=== PATIENT | male | born 1950 | race Caucasian/White ===

== ENCOUNTER → 2022-09-04 10:47 | Outpatient (BNVA) | payer MEDICARE, SELFPAY | PROVIDERS: PCP Internal Medicine; Referring Provider Internal Medicine; Visit Provider Nurse Practitioner Family | DX: Z12.11 Encounter for screening for malignant neoplasm of colon (principal) | CPT/HCPCS: 99202 ==

== ENCOUNTER → 2023-01-06 10:50 | Outpatient (BNVA) | payer MEDICARE, SELFPAY | PROVIDERS: Visit Provider Nurse Practitioner Family ==

== ENCOUNTER 2023-02-12 13:15 | Inpatient (IN) | payer MEDICARE, SELFPAY ==
--- NOTE | ~2023-02-12 | XR_ITS ---
EXAMINATION: XR CHEST CLINICAL INFORMATION: Shortness of breath COMPARISON: CT abdomen and pelvis 11/08/2006 and 05/30/2017 TECHNIQUE: Frontal view of the chest was obtained. FINDINGS: Heart size upper limits of normal. The left hemidiaphragm is mildly elevated and there are patchy changes at the left lung base. Some right basilar atelectasis is present as well. When comparison is made to the prior CT scan from 2018 as well as 2006 , similar changes can be seen at the left lung base. No large pleural effusions are seen. Mild blunting of the left costophrenic angle laterally was present ever since 2006 as well. XR/XR chest 1V IMPRESSION: No acute intrathoracic disease. Chronic scarring/atelectasis, left greater than right.
--- NOTE | 2023-02-12 13:18 | ECG_ITS ---
Test Reason : abn labs Blood Pressure : / mmHG Vent. Rate : 108 BPM Atrial Rate : 000 BPM P-R Int : 000 ms QRS Dur : 086 ms QT Int : 346 ms P-R-T Axes : 000 005 055 degrees QTc Int : 463 ms Atrial fibrillation with rapid ventricular response with premature ventricular or aberrantly conducted complexes Minimal voltage criteria for LVH, may be normal variant ( R in aVL ) Nonspecific T wave abnormality Abnormal ECG When compared with ECG of 12-FEB-2023 13:23, T wave amplitude has decreased in Lateral leads Referred By: Jayme Nolan Electronically Signed By:NADJA YBARRA MD
--- NOTE | 2023-02-12 13:19 | ECG_ITS ---
Test Reason : abnormal labs Blood Pressure : / mmHG Vent. Rate : 108 BPM Atrial Rate : 000 BPM P-R Int : 000 ms QRS Dur : 082 ms QT Int : 322 ms P-R-T Axes : 000 020 049 degrees QTc Int : 431 ms Atrial fibrillation with rapid ventricular response with premature ventricular or aberrantly conducted complexes Nonspecific ST abnormality Abnormal ECG No previous ECGs available Referred By: Jayme Nolan Electronically Signed By:NADJA YBARRA MD
--- NOTE | 2023-02-12 13:21 | ED_ITS ---
HPI - General Adult General Chief complaint: Recheck/Abnormal Lab/Rx Stated complaint: Needs Magnesium Injection Time Seen by Provider: 02/12/23 13:53 Source: patient Mode of arrival: ambulatory Limitations: no limitations History of Present Illness HPI narrative: patient present for very low magnesium, in addition he has poorly controlled afib and worsening edema Onset (ago): week(s) Severity: moderate Related Data Home Medications Medication Instructions Recorded Confirmed atorvastatin 40 mg tablet 40 mg PO BEDTIME 09/03/22 02/12/23 lisinopril 40 mg tablet 40 mg PO DAILY@1200 09/03/22 02/12/23 metformin 1,000 mg tablet 1,000 mg PO BID@1200,2100 09/03/22 02/12/23 dulaglutide 1.5 mg/0.5 mL 1.5 mg subcut TH 09/04/22 02/12/23 subcutaneous pen injector (Trulicity) folic acid 1 mg tablet 1 mg PO DAILY@1200 09/04/22 02/12/23 insulin lispro 100 unit/mL See Rx Instructions .Route .COMPLEX 09/04/22 02/12/23 subcutaneous solution (Humalog U-100 Insulin) warfarin 5 mg tablet 2.5 mg PO MOWEFRSA@1800 09/04/22 02/12/23 clopidogrel 75 mg tablet 75 mg PO DAILY 01/06/23 02/12/23 flash glucose scanning reader #1 ea 01/06/23 (FreeStyle Pat 2 [place]) flash glucose sensor (FreeStyle #1 ea 01/06/23 Pat 2 Sensor kit) ammonium lactate 12 % topical cream 1 appl topical DAILY PRN Wound Care 02/12/23 02/12/23 silver sulfadiazine 1 % topical 1 appl topical DAILY PRN Wound Care 02/12/23 02/12/23 cream sub-q insulin device, 20 unit 02/12/23 02/12/23 (V-GO 20 device) warfarin 5 mg tablet 5 mg PO SUTUTH@1800 02/12/23 02/12/23 Previous Rx's Medication Instructions Recorded digoxin 250 mcg (0.25 mg) tablet 250 mcg PO DAILY #30 tabs 02/15/23 furosemide 20 mg tablet 20 mg PO DAILY #30 tabs 02/15/23 magnesium oxide 400 mg (241.3 mg 400 mg PO BIDPC #60 tabs 02/15/23 magnesium) tablet metoprolol tartrate 75 mg tablet 75 mg PO BID #60 tabs 02/15/23 Allergies Allergy/AdvReac Type Severity Reaction Status Date / Time peanut [PEANUTS] Allergy Unknown UNK Verified 02/12/23 13:39 wool [WOOL] Allergy Unknown UNK Verified 02/12/23 13:39 peanuts Allergy Unknown hives Uncoded 02/12/23 13:39 Review of Systems 2 Review of Systems: Yes all other systems are reviewed and are negative Neurologic: Denies Sensory deficit (Neuro) [facility] Family History Family History Father Kidney cancer, primary, with metastasis from kidney to other site Heart disease Social History Social History Household Members: Significant Other Housing: House Alcohol intake: never Patient Tobacco Use Status: Never used Tobacco Second Hand Smoke Exposure: No Advance Directives Date on File: 02/13/23 service: No Physical Exam ED Vital Signs: Vital Signs - 24 hr 02/12/23 13:35 02/12/23 14:46 02/12/23 16:47 Temperature 98 F 98.5 F Pulse Rate 130 H 115 H 97 Respiratory Rate 16 20 24 H Blood Pressure 147/79 H 152/80 H 148/88 H Pulse Oximetry 93 95 94 Oxygen Delivery Method Room Air Room Air Room Air BMI result Body Mass Index 35.1 Const Other: chronically ill male, short of breath Nutritional Appearance: average body habitus and obese Orientation/consciousness: oriented to person and patient oriented x3 Limitations: no limitations [facility] Head: Yes normal to inspection Ears: external ears normal General nose exam: Normal external nose present Mouth: Normal oral and palatal mucosa present and oropharynx normal Throat: Yes posterior oropharynx normal Eyes General: appearance normal, both eyes and all related structures Neck Neck: Yes normal visual inspection Chest Chest palpation & inspection: normal inspection of the chest Resp Other: diffuse fine crackles Cardio Other: tachycardia, irregular rate and rhythm GI Inspection: Yes normal to inspection Palpation (GI): Soft to palpation, nontender and No hepatosplenomegaly present Auscultation: normal bowel sounds General: Yes no CVA tenderness Back/Spine/Pelvis Back: no CVA tenderness Skin General skin exam: no rashes or lesions noted Neuro General: oriented to person and patient oriented x3 Cranial nerves: Yes CN's II-XII intact bilaterally Motor exam (neuro): 5/5 motor strength present throughout Sensory Exam: No Sensory deficit (Neuro) Extrem Other: bilateral anasarca with blebs and leaking lymphedma Psych Appearance: grossly normal Course Course Course Narrative: RME: 72 yold male brought to the ED for magnesium of 1. patient asymptomatic, but sent by his PCP. labs and EKG ordered. Charge nurse Judy made aware and patient will be brought in. Reevaluation(s) Reevaluation #1: patient needed rate control with IV cardizem, he has worsening edema and his magnesium is critically low will admit for afib, diuresis and critically low magnesium Time: 17:03 Reevaluation #2: I spent 40 minutes of critical care, with interventions, assessments, speaking to patient, consultants, and family. Time: 17:03 Medications Administered Discontinued Medications Generic Name Dose Route Start Last Admin Trade Name Freq PRN Reason Stop Dose Admin Acetaminophen 650 mg 02/12/23 21:12 02/15/23 02:04 Acetaminophen 325 Mg Tablet PO 650 mg Q6H PRN Administration Pain, Mild (Pain Scale 1-3) Atorvastatin Calcium 40 mg 02/13/23 21:00 02/14/23 20:46 Atorvastatin Calcium 40 Mg Tablet PO 40 mg BEDTIME JOY Administration Clopidogrel Bisulfate 75 mg 02/13/23 09:00 02/15/23 08:17 Clopidogrel Bisulfate 75 Mg Tablet PO 75 mg DAILY JOY Administration Digoxin 0.5 mg 02/13/23 10:19 02/13/23 10:33 Digoxin 0.5 Mg/2 Ml Ampul IVPUSH 02/13/23 10:20 0.5 mg ONCE ONE Administration Digoxin 0.25 mg 02/13/23 16:30 02/13/23 21:14 Digoxin 0.5 Mg/2 Ml Ampul IVPUSH 02/13/23 22:31 0.25 mg Q6H JOY Administration Diltiazem HCl 10 mg 02/12/23 14:29 02/12/23 15:00 Diltiazem Hcl 50 Mg/10 Ml Vial IVPUSH 02/12/23 14:30 10 mg STAT STA Administration Folic Acid 1 mg 02/13/23 12:00 02/14/23 12:09 Folic Acid 1 Mg Tablet PO 1 mg DAILY@1200 JOY Administration Furosemide 40 mg 02/12/23 20:49 02/12/23 21:52 Furosemide 40 Mg/4 Ml Vial IVPUSH 02/12/23 20:50 40 mg ONCE ONE Administration Protocol Furosemide 40 mg 02/13/23 09:00 02/15/23 08:17 Furosemide 40 Mg/4 Ml Vial IVPUSH 40 mg DAILY [facility] Administration Protocol Magnesium Sulfate 2 gm in 50 mls @ 25 mls/hr 02/12/23 14:28 02/12/23 17:51 Magnesium Sulfate/H2o IV 02/12/23 16:27 Infused ONCE ONE Infusion Diltiazem HCl 125 mg/ Sodium 125 mls @ 0 mls/hr 02/12/23 14:30 02/15/23 08:02 Chloride IVCONT Infused .Q0M [facility] Titration Protocol Per Protocol Magnesium Sulfate 2 gm in 50 mls @ 150 mls/hr 02/12/23 20:12 02/12/23 22:20 Magnesium Sulfate/H2o IV 02/12/23 20:31 Infused ONCE ONE Infusion Insulin Pump 1 each 02/13/23 07:30 02/15/23 08:06 Subcutaneous Insulin Pump SUBCUT Not Given QIDACHS [facility] Protocol Lisinopril 40 mg 02/13/23 12:00 02/14/23 12:09 Lisinopril 40 Mg Tablet PO 40 mg DAILY@1200 [facility] Administration Protocol Magnesium Oxide 400 mg 02/13/23 17:30 02/15/23 08:17 Magnesium Oxide 400 Mg Tablet PO 400 mg BIDPC [facility] Administration Metoprolol Tartrate 25 mg 02/13/23 13:00 02/15/23 08:17 Metoprolol Tartrate 25 Mg Tablet PO 25 mg QID [facility] Administration Protocol Polyethylene Glycol 17 gm 02/15/23 02:15 02/15/23 02:37 Polyethylene Glycol 3350 17 Gm Powd.Pack PO 02/15/23 02:16 17 gm ONCE ONE Administration Sodium Chloride 3 ml 02/13/23 00:00 02/15/23 08:17 0.9 % Sodium Chloride Flush 3 Ml Syringe IVFLUSH 3 ml QSHIFT [facility] Administration Warfarin Sodium 2.5 mg 02/12/23 22:00 02/14/23 17:50 Warfarin Sodium 2.5 Mg Tablet PO 2.5 mg MOWEFRSA@1800 [facility] Administration Warfarin Sodium 5 mg 02/13/23 18:00 02/13/23 17:30 Warfarin Sodium 5 Mg Tablet PO 5 mg GARCÍA@1800 JOY Administration Medical Decision Making Differential Diagnosis Differential Diagnoses: The differential diagnosis associated with the presentation includes (hypomagnesemia, poor controlled atrial fibrillation, anasarca, chf were all considered) Admission/Observation Consideration of admission/observation: Escalation of care including admission/observation considered (upon arrival patient considered for admission) Consult Healthcare Provider Management of the patient was discussed with: Hospitalist Lab Data 02/15/23 06:46 02/15/23 06:46 Labs: Lab Results 02/12/23 02/12/23 02/12/23 Range/Units 13:46 15:05 17:30 WBC 5.6 (4.8-10.8) X10*3/uL RBC 5.35 (4.60-5.80) X10*6/uL Hgb 11.9 L (14.0-18.0) g/dl Hct 40.4 L (42.0-52.0) % MCV 75.5 L (80.0-98.0) fL MCH 22.2 L (27.0-33.0) pg MCHC 29.5 L (31.0-36.0) g/dl RDW 17.7 H (11.0-16.0) % Plt Count 265 (160-400) X10*3/uL MPV 8.7 L (9.4-12.4) fL Immature Gran % (Auto) 0.4 (0.0-0.4) % Neut % (Auto) 66.7 (45-73) % Lymph % (Auto) 14.6 L (20-40) % [place] % (Auto) 13.6 H (2-11) % Eos % (Auto) 4.3 H (0-4) % Baso % (Auto) 0.4 (0-2) % Lymph # (Auto) 0.8 L (1.2-4.9) X10*3/uL [place] # (Auto) 0.8 (0.1-1.2) X10*3/uL Eos # (Auto) 0.2 (0.0-0.4) X10*3/uL Baso # (Auto) 0.0 (0.0-0.2) X10*3/uL Abs Immat Gran (auto) 0.02 (0.00-0.03) X10*3/uL Absolute Neuts (auto) 3.7 (2.0-8.3) x10*3/uL Absolute Nucleated RBC 0.000 (0.0-0.012) X10*3/uL Nucleated RBC % (auto) 0.0 (0.0-0.2) /100WBC PT 32.7 H (11.1-13.3) SEC INR 2.7 H (0.9-1.1) Sodium 145 (135-145) mmol/L Potassium 3.9 (3.3-5.1) mmol/L Chloride 109 H (96-108) mmol/L Carbon Dioxide 26 (22-29) mmol/L Anion Gap 14 (12-20) BUN 12 (9-16) mg/dL Creatinine 0.81 (0.5-1.4) mg/dL Estim Creat Clear Calc 125.2 Estimated GFR > 60 Random Glucose 112 (60-115) mg/dL Calcium 8.4 (8.4-10.2) mg/dL Magnesium 0.8 L* 1.2 L* (1.6-2.6) mg/dL Iron 21 L (45-160) mcg/dL TIBC 244 (228-428) mcg/dL % Saturation 9 L (15-50) % Unsat Iron Binding 223 ug/dL Ferritin 62 (20-250) ng/mL Total Bilirubin 1.0 (0.0-1.0) mg/dL AST 18 (5-37) U/L ALT 10 (0-40) U/L Alkaline Phosphatase 85 (39-117) U/L Troponin I High Sens < 2.7 (<3.5-35.0) ng/L B-Natriuretic Peptide 206 H (<100) pg/mL Total Protein 7.3 (6.5-8.0) g/dL Albumin 3.3 L (3.5-5.0) g/dL Independent Interpretation I performed an independent interpretation of an: EKG (atrial fibrillation rate of 120, no st or twave changes) and Plain X-Ray (chronic lung changes) Radiology Impression Discussion of test interpretation with radiology: I have reviewed the radiologist's reading. (I agree with the reading) Independent Historian Clinical information obtained from an independent historian. History obtained from or confirmed by: Spouse Chronic Conditions Patient?s care impacted by: Other (CHF and atrial fibrillation) Discharge Plan Discharge Clinical Impression: Atrial fibrillation, Anasarca, Hypomagnesemia Patient Disposition: Admitted As Inpatient Discharge Date/Time: 02/13/23 14:15
[2023-02-12 13:35] VITALS: BP 147/79; PULSE 130; RESP 16; TEMP 36.6; O2SAT 93; BMI 35.1
[2023-02-12 13:50] LABS: MANUAL DIFF FLAG NO
[2023-02-12 13:55] LABS: Basophils Percent Auto 0.4 % (0-2); Eosinophils Absolute Auto 0.2 X10*3/uL (0.0-0.4); Eosinophils Percent Auto 4.3 % (0-4); Hematocrit 40.4 % (42.0-52.0); Hemoglobin 11.9 g/dl (14.0-18.0); Imm Gran Abs Auto 0.02 X10*3/uL (0.00-0.03); Imm Gran Pct Auto 0.4 % (0.0-0.4); Lymphocytes Absolute Auto 0.8 X10*3/uL (1.2-4.9); Lymphocytes Percent Auto 14.6 % (20-40); Mean Corpuscular HGB Conc 29.5 g/dl (31.0-36.0); Mean Corpuscular Hemoglobin 22.2 pg (27.0-33.0); Mean Corpuscular Volume 75.5 fL (80.0-98.0); Mean Platelet Volume 8.7 fL (9.4-12.4); Monocytes Absolute Auto 0.8 X10*3/uL (0.1-1.2); Monocytes Percent Auto 13.6 % (2-11); Neutrophils Absolute Auto 3.7 x10*3/uL (2.0-8.3); Neutrophils Percent Auto 66.7 % (45-73); Platelet Count 265 X10*3/uL (160-400); Red Blood Count 5.35 X10*6/uL (4.60-5.80); Red Cell Distribution Width 17.7 % (11.0-16.0); White Blood Count 5.6 X10*3/uL (4.8-10.8)
[2023-02-12 14:11] LABS: Alanine Aminotransferase 10 U/L (0-40); Albumin Level 3.3 g/dL (3.5-5.0); Alkaline Phosphatase 85 U/L (39-117); Anion Gap 14 (12-20); Aspartate Amino Transferase 18 U/L (5-37); Blood Urea Nitrogen 12 mg/dL (9-16); Calcium 8.4 mg/dL (8.4-10.2); Carbon Dioxide 26 mmol/L (22-29); Chloride 109 mmol/L (96-108); Creatinine Clr Calc Pharmacy 125.2; Estimated Glomerular Filt Rate > 60; Glucose Random 112 mg/dL (60-115); Magnesium 0.8 mg/dL (1.6-2.6); Potassium 3.9 mmol/L (3.3-5.1); Sodium 145 mmol/L (135-145); Total Protein 7.3 g/dL (6.5-8.0)
[2023-02-12 14:46] VITALS: BP 152/80; PULSE 115; RESP 20; O2SAT 95
[2023-02-12] MEDS: dilTIAZem HCL 50 MG/10 ML VIAL 10 MG IVPUSH (15:00)
[2023-02-12] MEDS: Magnesium Sulfate/H2O 2 GM/50 ML PIGGYBACK IV ×2 (15:06→21:52)
[2023-02-12] MEDS: dilTIAZem HCL 125 MG in 0.9 % Sodium Chloride 100 ML 10 MG IVCONT (15:15)
[2023-02-12 15:30] LABS: Troponin-I High Sensitivity < 2.7 ng/L (<3.5-35.0)
[2023-02-12 15:43] LABS: B Type Natriuretic Peptide 206 pg/mL (<100)
[2023-02-12 16:47] VITALS: BP 148/88; PULSE 97; RESP 24; TEMP 36.9; O2SAT 94
--- NOTE | 2023-02-12 17:06 | PC.NURSE ---
CARDIZEM GTT TITRATED TO 15ML/HR, PT TOLERATING WELL, REMAINS IN AFIB BETWEEN 90S-110S, BP WNL, PT ASYMPTOMATIC.
[2023-02-12 17:43] LABS: INTERNATIONAL NORM RATIO 2.7 (0.9-1.1); Prothrombin Time 32.7 SEC (11.1-13.3)
--- NOTE | 2023-02-12 17:49 | PHA.MEDREC ---
Pharmacy Consult ? Medication Reconciliation Pharmacy has completed the medication reconciliation. Patient reported all medications. Luz Olivarez, [email or web address]
[2023-02-12 17:53] LABS: Magnesium 1.2 mg/dL (1.6-2.6)
[2023-02-12 18:43] VITALS: BP 130/68; PULSE 86; RESP 16; O2SAT 94
[2023-02-12 21:15] VITALS: BP 144/73; PULSE 80; RESP 27; TEMP 36.4; O2SAT 92
--- NOTE | 2023-02-12 21:38 | P.HPHOSP_ITS ---
History of Present Illness Date of Service: 02/12/23 <ERASMO Centeno - Last Filed: 02/12/23 21:58> Attending physician on admission: Fredi Welch <ERASMO Centeno - Last Filed: 02/12/23 21:58> Chief Complaint: low mag, edema <ERASMO Centeno - Last Filed: 02/12/23 21:58> 72-year-old male with well-controlled insulin-dependent type 2 diabetes, GERD, coronary artery disease s/p PCI with SELENE in 11/2022, paroxysmal atrial fibrillation, history of bilateral lower extremity DVT anticoagulated with Coumadin, chronic venous stasis dermatitis with bilateral lower extremity edema presented to the ED earlier today at the recommendation of 1 of his providers due to hypo magnesiumemia and worsening lower extremity edema. Per the patient 1 week ago had a magnesium level of 0.9 and was prescribed 400 mg magnesium oxide twice daily which he took as prescribed but magnesium only improved to 1.0 and he was advised to present to the ED. he also states that since his coronary stent 2 months ago, has had worsening bilateral lower extremity edema with blisters and venous ulcer to the right ankle. He does follow with podiatry and wound care for this. He has also had dyspnea on exertion and orthopnea but states this is longstanding. Reports occasional nocturnal palpitations. No lightheadedness or chest pains. Denies any purulent drainage from the chronic wound of the right ankle. No fevers or chills. He is here today with his significant other, Mary Alice, who assists with his care and wound management. On arrival, patient tachycardic to 130 and tachypneic to 24. No hypotension or hypoxia. There is minimal improvement in heart rate with 10 mg IV diltiazem and patient was placed on Cardizem drip with improvement in heart rate. Hematology studies significant for mild microcytic anemia. INR therapeutic at 2.7. Renal function and electrolyte levels normal except for magnesium of 0.8 on arrival. He received 2 g IV magnesium in the ED with slight improvement to 1.2. Additional 2 g IV magnesium ordered. Troponin undetectable. BNP 206. Albumin 3.3. Chest x-ray negative for any acute disease but shows chronic scarring/atelectasis. No pleural effusions or edema noted. EKG on arrival showed AFib with RVR and PVCs, rate [address]/T-wave abnormality. <ERASMO Centeno - Last Filed: 02/12/23 21:58> Review of Systems 2 Review of Systems: General: No fevers, malaise, unintentional weight loss Cardiovascular: No chest pain. +palpitations + leg edema Respiratory: +pop, +cough. No wheezing GI: No abdominal pain, nausea, vomiting, diarrhea, constipation, melena, hematochezia : No dysuria, hematuria, increased urinary frequency, decreased urinary output MSK: No myalgia, back pain Neuro: No headaches, weakness, paresthesias Skin: No rashes or lesions <ERASOM Centeno Last Filed: 02/12/23 21:58> [facility] Family History: Family History Father Kidney cancer, primary, with metastasis from kidney to other site Heart disease <ERASMO Centeno - Last Filed: 02/12/23 21:58> Social History: Social History Alcohol intake: never Patient Tobacco Use Status: Never used Tobacco Smoked in Last 30 Days: No Use of substances other than those prescribed or required for medical reasons: No Advance Directives: No Advance Directives Information Provided: Yes <ERASMO Centeno - Last Filed: 02/12/23 21:58> Meds Allergies/Adverse reactions: Allergies Allergy/AdvReac Type Severity Reaction Status Date / Time peanut [PEANUTS] Allergy Unknown UNK Verified 02/12/23 13:39 wool [WOOL] Allergy Unknown UNK Verified 02/12/23 13:39 peanuts Allergy Unknown hives Uncoded 02/12/23 13:39 <ERASMO Centeno - Last Filed: 02/12/23 21:58> Active Medications: Current Medications Acetaminophen (Acetaminophen 325 Mg Tablet) 650 mg PO Q6H PRN PRN Reason: Pain, Mild (Pain Scale 1-3) Diltiazem HCl 125 mg/ Sodium (Chloride) 125 mls @ 0 mls/hr IVCONT .Q0M JOY; Protocol Last Titration: 02/12/23 16:50 Dose: 15 mg/hr, 15 mls/hr Melatonin (Melatonin 3 Mg Tablet) 6 mg PO BEDTIME PRN PRN Reason: Insomnia Ondansetron HCl (Ondansetron Hcl 4 Mg/2 Ml Vial) 4 mg IVPUSH Q8H PRN PRN Reason: Nausea and Vomiting Sodium Chloride (0.9 % Sodium Chloride Flush 3 Ml Syringe) 3 ml IVFLUSH QSHIFT [facility] <ERASMO Centeno - Last Filed: 02/12/23 21:58> Home medications: Home Medications Medication Instructions Recorded Confirmed Last Taken Type atorvastatin 40 mg tablet 40 mg PO BEDTIME 09/03/22 02/12/23 02/12/23 History lisinopril 40 mg tablet 40 mg PO DAILY@1200 09/03/22 02/12/23 02/12/23 History metformin 1,000 mg tablet 1,000 mg PO BID@1200,2100 09/03/22 02/12/23 02/12/23 History metoprolol succinate 50 mg capsule 50 mg PO DAILY@1200 09/03/22 02/12/23 02/12/23 History sprinkle, ext. release 24 hr omeprazole 20 mg capsule,delayed 20 mg PO DAILY 09/03/22 02/12/23 02/12/23 History release dulaglutide 1.5 mg/0.5 mL 1.5 mg subcut TH 09/04/22 02/12/23 02/12/23 History subcutaneous pen injector (Trulicity) folic acid 1 mg tablet 1 mg PO DAILY@1200 09/04/22 02/12/23 02/12/23 History insulin lispro 100 unit/mL See Rx Instructions .Route .COMPLEX 09/04/22 02/12/23 02/12/23 History subcutaneous solution (Humalog U-100 Insulin) warfarin 5 mg tablet 2.5 mg PO MOWEFRSA@1800 09/04/22 02/12/23 02/10/23 History clopidogrel 75 mg tablet 75 mg PO DAILY 01/06/23 02/12/23 02/12/23 History flash glucose scanning reader #1 ea 01/06/23 Unknown History (FreeStyle Pat 2 [place]) flash glucose sensor (FreeStyle #1 ea 01/06/23 Unknown History Pat 2 Sensor kit) ammonium lactate 12 % topical cream 1 appl topical DAILY PRN Wound Care 02/12/23 02/12/23 Unknown History metoprolol succinate 25 mg 25 mg PO DAILY@1200 02/12/23 02/12/23 02/12/23 History tablet,extended release 24 hr silver sulfadiazine 1 % topical 1 appl topical DAILY PRN Wound Care 02/12/23 02/12/23 Unknown History cream sub-q insulin device, 20 unit 02/12/23 02/12/23 Unknown History (V-GO 20 device) warfarin 5 mg tablet 5 mg PO SUTUTH@1800 02/12/23 02/12/23 02/11/23 History <ERASMO Centeno - Last Filed: 02/12/23 21:58> Physical Exam 2 Vital Signs and Narrative: Vital Signs: Last Vital Signs Temp 97.5 F 02/12/23 21:15 Pulse 80 02/12/23 21:15 Resp 27 H 02/12/23 21:15 BP 144/73 H 02/12/23 21:15 Pulse Ox 92 02/12/23 21:15 O2 Del Method Room Air 02/12/23 21:15 BMI result Body Mass Index 35.1 <ERASMO Centeno - Last Filed: 02/12/23 21:58> Constitutional - Awake and Alert, No apparent distress Eyes - PERRLA, EOMI Cardiovascular - S1S2, RRR, 2+ edema BLE Respiratory - Normal lung expansion, Normal respiratory effort, No respiratory distress, CTA bilaterally Gastrointestinal - NT / ND; +BS; No rebound or guarding Extremities - no calf tenderness bilaterally, +swelling BLE with scattered vesicles covering the lower legs with shallow superfical ulceration about 10cm x 6cm anterior right ankle Skin - Warm/Dry. Neurological - Alert & oriented x3 Psychological - Appropriate affect <ERASMO Centeno - Last Filed: 02/12/23 21:58> Results Labs CBC and Chem 7: 02/12/23 13:46 02/12/23 13:46 <ERASMO Centeno - Last Filed: 02/12/23 21:58> Labs: Laboratory Results - last 24 hr 02/12/23 02/12/23 02/12/23 13:46 15:05 17:30 MCV 75.5 L MCH 22.2 L MCHC 29.5 L RDW 17.7 H Plt Count 265 MPV 8.7 L Immature Gran % (Auto) 0.4 Neut % (Auto) 66.7 Lymph % (Auto) 14.6 L [place] % (Auto) 13.6 H Eos % (Auto) 4.3 H Baso % (Auto) 0.4 Lymph # (Auto) 0.8 L [place] # (Auto) 0.8 Eos # (Auto) 0.2 Baso # (Auto) 0.0 Abs Immat Gran (auto) 0.02 Absolute Neuts (auto) 3.7 Absolute Nucleated RBC 0.000 Nucleated RBC % (auto) 0.0 PT 32.7 H INR 2.7 H Anion Gap 14 Estim Creat Clear Calc 125.2 Estimated GFR > 60 Random Glucose 112 Calcium 8.4 Magnesium 0.8 L* 1.2 L* Total Bilirubin 1.0 AST 18 ALT 10 Alkaline Phosphatase 85 B-Natriuretic Peptide 206 H Total Protein 7.3 Albumin 3.3 L <ERASMO Centeno - Last Filed: 02/12/23 21:58> Imaging Radiologist's Impressions: Impressions Chest X-Ray 02/12/23 16:10 IMPRESSION: No acute intrathoracic disease. Chronic scarring/atelectasis, left greater than right. <ERASMO Centeno - Last Filed: 02/12/23 21:58> Assessment and Plan (1) Hypomagnesemia: Status: Acute <ERASMO Centeno - Last Filed: 02/12/23 21:58> (2) Atrial fibrillation: Status: Acute <ERASMO Centeno - Last Filed: 02/12/23 21:58> (3) Edema: Status: Acute <ERASMO Centeno - Last Filed: 02/12/23 21:58> 72-year-old male with well-controlled insulin-dependent type 2 diabetes, GERD, coronary artery disease s/p PCI with SELENE in 11/2022, paroxysmal atrial fibrillation, history of bilateral lower extremity DVT anticoagulated with Coumadin, chronic venous stasis dermatitis with bilateral lower extremity edema admitted for further management of atrial fibrillation with RVR. # paroxysmal atrial fibrillation -continue Cardizem per protocol -continue metoprolol XL 75 mg daily -continue Coumadin for anticoagulation. INR therapeutic at 2.7. Monitor INR daily -cardiac diet -echocardiogram ordered -cardiology consult -monitor on telemetry #Acute hypomagnesemia -denies etoh use -repleted with 4 g IV magnesium in the ED -hold omeprazole, Trulicity, metformin -follow magnesium #BLE edema -likely multifactorial r/t chronic venous stasis, ?CHF -does endorse chronic pop and orthopnea -BNP slightly elevated at 202, CXR negative for edema/effusions -IV lasix 40mg daily -echo pending -strict I&O -cardiac diet -follow BMP # insulin controlled type 2 diabetes -reports controlled with last A1c 6.5% -uses own insulin pump which we will continue -POC glucose -diabetic diet -hold oral antihyperglycemics # CAD -no added on chest pain, EKG without acute ischemic changes -and undetectable -continue Plavix,, beta-ela # superficial venous ulcer right ankle -does not appear acutely infected -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 # severe obesity with BMI greater than 35 -weight loss efforts encouraged DVT prophylaxis-Coumadin Full code Patient requires inpatient stay at least 2 midnights for management of atrial fibrillation with RVR on Cardizem drip requiring titration and severe hypomagnesemia requiring IV repletion and close cardiac monitoring <ERASMO Centeno - Last Filed: 02/12/23 21:58> 72-year-old male with well-controlled insulin-dependent type 2 diabetes, GERD, coronary artery disease s/p PCI with SELENE in 11/2022, paroxysmal atrial fibrillation, history of bilateral lower extremity DVT anticoagulated with Coumadin, chronic venous stasis dermatitis with bilateral lower extremity edema admitted for further management of atrial fibrillation with RVR. # paroxysmal atrial fibrillation with RVR -continue Cardizem per protocol -continue metoprolol XL 75 mg daily -continue Coumadin for anticoagulation. INR therapeutic at 2.7. Monitor INR daily -cardiac diet -echocardiogram ordered -cardiology consult -monitor on telemetry #Acute hypomagnesemia -denies etoh use -repleted with 4 g IV magnesium in the ED -hold omeprazole, Trulicity, metformin -follow magnesium #BLE edema -likely multifactorial r/t chronic venous stasis, ?CHF -does endorse chronic pop and orthopnea -BNP slightly elevated at 202, CXR negative for edema/effusions -IV lasix 40mg daily -echo pending -strict I&O -cardiac diet -follow BMP # insulin controlled type 2 diabetes -reports controlled with last A1c 6.5% -uses own insulin pump which we will continue -POC glucose -diabetic diet -hold oral antihyperglycemics # CAD -no added on chest pain, EKG without acute ischemic changes -and undetectable -continue Plavix,, beta-ela # superficial venous ulcer right ankle -does not appear acutely infected -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 <ERASMO Centeno - Last Filed: 02/12/23 21:58> Quality Stroke Does the patient have a stroke diagnosis?: No <ERASMO Centeno - Last Filed: 02/12/23 21:58> VTE Prior VTE?: Yes <ERASMO Centeon - Last Filed: 02/12/23 21:58> VTE Risk Level:: Medical - moderate - high <ERASMO Centeno - Last Filed: 02/12/23 21:58> VTE Device Contraindication: Treatment Not Indicated <ERASMO Centeno - Last Filed: 02/12/23 21:58> VTE Drug Contraindication: N/A - Med Ordered <ERASMO Centeno - Last Filed: 02/12/23 21:58>
[2023-02-12] MEDS: Furosemide 40 MG/4 ML VIAL IVPUSH (21:52)
--- NOTE | 2023-02-12 22:49 | PC.NURSE ---
Pt alert and oriented. VSS stable, Cardizem drip currently infusing. Medications administered as per JUN. [place] cath placed on pt. Wound care provided to right gross. and left calf. right gross draining purulent fluids. ABD dressing applied and grabbed in gauze. Call rojas within reach. PLan of care ongoing
[2023-02-12 23:25] LABS: Iron 21 mcg/dL (45-160); Percent Iron Saturation 9 % (15-50); Total Iron Binding Capacity 244 mcg/dL (228-428); Unsaturated Iron Binding 223 ug/dL
[2023-02-12 23:26] LABS: Ferritin 62 ng/mL (20-250)
[2023-02-13] VITALS (9 sets, daily range): BP systolic 112–159; BP diastolic 64–92; PULSE 70–129; RESP 16–24; TEMP 36.2–36.9; O2SAT 91–96
[2023-02-13] MEDS: Warfarin Sodium 2.5 MG TABLET PO (00:03)
--- NOTE | 2023-02-13 00:09 | PC.NURSE ---
PT alert and oriented. Cardizem drip infused. PT heart rate stable in the 70-80s. Hospital bed obtained for comfort. PT denies pain at this time. Call rojas within reach. Plan of care ongoing.
--- NOTE | 2023-02-13 00:32 | MHC.EDTECH ---
PT resting in bed Respirations even and unlabored Plan of care is ongoing
[2023-02-13 05:46] LABS: Hematocrit 42.2 % (42.0-52.0); Hemoglobin 12.3 g/dl (14.0-18.0); Mean Corpuscular HGB Conc 29.1 g/dl (31.0-36.0); Mean Corpuscular Volume 75.4 fL (80.0-98.0); Mean Platelet Volume 8.7 fL (9.4-12.4); Platelet Count 241 X10*3/uL (160-400); Red Cell Distribution Width 17.7 % (11.0-16.0); White Blood Count 5.9 X10*3/uL (4.8-10.8)
[2023-02-13 05:56] LABS: INTERNATIONAL NORM RATIO 2.4 (0.9-1.1)
[2023-02-13 06:09] LABS: Anion Gap 17 (12-20); Blood Urea Nitrogen 12 mg/dL (9-16); Carbon Dioxide 25 mmol/L (22-29); Chloride 106 mmol/L (96-108); Estimated Glomerular Filt Rate > 60; Glucose Random 120 mg/dL (60-115); Magnesium 1.7 mg/dL (1.6-2.6); Potassium 4.8 mmol/L (3.3-5.1); Sodium 143 mmol/L (135-145)
--- NOTE | 2023-02-13 06:22 | PC.NURSE ---
[place] cath replaced, linens changed. PT heart rate now irregular 70-124. MD aware. no new orders at this time. Plan of care ongoing. Call rojas within reach.
[2023-02-13 07:35] LABS: Glucose, Whole Blood 117 mg/dL (60-115)
--- NOTE | 2023-02-13 07:49 | PC.NURSE ---
patient manages his own insulin pump, states he did not dose himself with any insulin this morning due to glucose being 117. documented in MAR
[2023-02-13] MEDS: Furosemide 40 MG/4 ML VIAL IVPUSH (08:17)
[2023-02-13] MEDS: Clopidogrel Bisulfate 75 MG TABLET PO (08:18)
[2023-02-13] MEDS: Acetaminophen 325 MG TABLET 650 MG PO (08:18)
[2023-02-13] MEDS: dilTIAZem HCL 125 MG in 0.9 % Sodium Chloride 100 ML 10 MG IVCONT ×2 (08:23→15:12)
[2023-02-13] MEDS: 0.9 % Sodium Chloride Flush 3 ML SYRINGE IVFLUSH ×3 (08:32→23:57)
--- NOTE | 2023-02-13 08:34 | PC.NURSE ---
patient noted to be in afib rate 120s-140s, patient started back on dilt drip per JUN. patient urine bag emptied 400ml drained
--- NOTE | 2023-02-13 08:44 | PC.NURSE ---
patient dilt drip titrated to 15mg/hr due to hr 130s-140s. documented in MAR
--- NOTE | 2023-02-13 10:20 | PC.NURSE ---
patient dilt drip paused due to patient rates being 110s and lower. medicated per MAR
[2023-02-13] MEDS: Digoxin 0.5 MG/2 ML AMPUL IVPUSH (10:33)
--- NOTE | 2023-02-13 11:08 | PM.CNCAR ---
History of Present Illness History of Present Illness Date of Service: 02/13/23 Requesting physician: Jay Napoles Consult reason: atrial fibrillation and congestive heart failure Chief complaint: AFib with RVR Narrative: I was consulted to see Randy in cardiology consultation today for management of his atrial fibrillation. Patient is a pleasant 72-year-old male with recent stenting in November of the diagonal branch of the LAD for abnormal nuclear imaging, with no obvious symptoms of angina with mild LV systolic dysfunction. However it appeared like his cardiomyopathy is out of proportion to his coronary artery disease. Patient is currently on Plavix as well as warfarin therapy for chronic atrial fibrillation. He tells me that he has been told that he had atrial fibrillation for about 7 years. It appears that he has been in persistent atrial fibrillation. He also has prior history of bilateral DVT and has been on chronic anticoagulation for greater than 20 years. Also history of hypertension, diabetes, hyperlipidemia, acid reflux disease as well as chronic bilateral venous is if she and chronic leg edema. However he has noticed over the last few months he has had increasing leg swelling predominantly on the right lower extremity. He also has a nonhealing wound in the right lower extremity which she is be manage conservatively at home. He came to the hospital because he was told to come to the hospital as his magnesium level that was measured outpatient was not improved with oral therapy. His magnesium level was 1 after 1 week of replacement of oral magnesium. He was therefore advised to come to the hospital for IV magnesium loading for which she did. Since yesterday he has noticed to have elevated BNP in the 200 range and was given diuretics and has had good diuresis as per him. Continues to have leg swelling but he says this is improving. He has not noticed any significant prolonged palpitation irregular heartbeat but his atrial fibrillation rate has been difficult to control. He said he has never been cardioverted to his knowledge. He denies any lightheadedness, syncope. Review of Systems Constitutional: Constitutional: Reports no additional constitutional complaints Eyes: Eyes: Reports no additional eye complaints Cardiovascular: Cardiovascular: Denies chest pain, Reports leg edema, Denies lightheadedness, Denies Loss of Consciousness, Denies palpitations, Reports dyspnea on exertion and Denies orthopnea Respiratory: Respiratory: Reports dyspnea on exertion Genitourinary: Genitourinary: Reports no additional male genitourinary complaints Musculoskeletal: Musculoskeletal: Reports no additional musculoskeletal complaints Neurologic: Reports system reviewed and no additional complaints, except as documented Endocrine: Endocrine: Denies palpitations Hematologic/Lymphatic: Hematologic/Lymphatic: Reports no additional hematologic/lymphatic complaints [facility] Family History Family History Father Kidney cancer, primary, with metastasis from kidney to other site Heart disease Social History Social History Alcohol intake: never Patient Tobacco Use Status: Never used Tobacco Smoked in Last 30 Days: No Use of substances other than those prescribed or required for medical reasons: No Advance Directives: Yes Advance Directives on File: Yes Advance Directives Date on File: 02/13/23 Meds Allergies Allergy/AdvReac Type Severity Reaction Status Date / Time peanut [PEANUTS] Allergy Unknown UNK Verified 02/12/23 13:39 wool [WOOL] Allergy Unknown UNK Verified 02/12/23 13:39 peanuts Allergy Unknown hives Uncoded 02/12/23 13:39 Active Medications: Current Medications Acetaminophen (Acetaminophen 325 Mg Tablet) 650 mg PO Q6H PRN PRN Reason: Pain, Mild (Pain Scale 1-3) Last Admin: 02/13/23 08:18 Dose: 650 mg Atorvastatin Calcium (Atorvastatin Calcium 40 Mg Tablet) 40 mg PO BEDTIME JOY Clopidogrel Bisulfate (Clopidogrel Bisulfate 75 Mg Tablet) 75 mg PO DAILY [facility] Last Admin: 02/13/23 08:18 Dose: 75 mg Dextrose (Dextrose 50 % 25 Gm/50 Ml Syringe) 25 gm IVPUSH Q15M PRN; Protocol PRN Reason: per Hypoglycemia Standing Ord. Digoxin (Digoxin 0.5 Mg/2 Ml Ampul) 0.25 mg IVPUSH Q6H JOY Stop: 02/13/23 22:31 Folic Acid (Folic Acid 1 Mg Tablet) 1 mg PO DAILY@1200 JOY Furosemide (Furosemide 40 Mg/4 Ml Vial) 40 mg IVPUSH DAILY [facility]; Protocol Last Admin: 02/13/23 08:17 Dose: 40 mg Glucose (Glucose Gel 15 Gm Gel..Gram.) 15 gm PO Q15M PRN; Protocol PRN Reason: per Hypoglycemia Standing Ord. Diltiazem HCl 125 mg/ Sodium (Chloride) 125 mls @ 0 mls/hr IVCONT .Q0M JOY; Protocol Last Titration: 02/13/23 10:17 Dose: 0 mg/hr, 0 mls/hr Insulin Pump (Subcutaneous Insulin Pump) 1 each SUBCUT QIDACHS [facility]; Protocol Last Admin: 02/13/23 07:49 Dose: Not Given Lactic Acid (Ammonium Lactate 12 % Cream 140 Gm Tube) 1 appl TOPICAL DAILY PRN; Protocol PRN Reason: Wound Care Lisinopril (Lisinopril 40 Mg Tablet) 40 mg PO DAILY@1200 JOY; Protocol Magnesium Oxide (Magnesium Oxide 400 Mg Tablet) 400 mg PO BIDPC [facility] Melatonin (Melatonin 3 Mg Tablet) 6 mg PO BEDTIME PRN PRN Reason: Insomnia Metoprolol Tartrate (Metoprolol Tartrate 25 Mg Tablet) 25 mg PO QID [facility]; Protocol Non-Formulary Medication (Dulaglutide [Trulicity]) 1.5 mg SUBCUT [facility] Ondansetron HCl (Ondansetron Hcl 4 Mg/2 Ml Vial) 4 mg IVPUSH Q8H PRN PRN Reason: Nausea and Vomiting Silver Sulfadiazine (Silver Sulfadiazine 1 % Cream 20 Gm Tube) 1 appl TOPICAL DAILY PRN PRN Reason: Wound Care Sodium Chloride (0.9 % Sodium Chloride Flush 3 Ml Syringe) 3 ml IVFLUSH QSHIFT [facility] Last Admin: 02/13/23 08:32 Dose: 3 ml Warfarin Sodium (Warfarin Sodium 2.5 Mg Tablet) 2.5 mg PO MOWEFRSA@1800 [facility] Last Admin: 02/13/23 00:03 Dose: 2.5 mg Warfarin Sodium (Warfarin Sodium 5 Mg Tablet) 5 mg PO SUTUTH@1800 [facility] Home Medications Medication Instructions Recorded Confirmed Last Taken Type atorvastatin 40 mg tablet 40 mg PO BEDTIME 09/03/22 02/12/23 02/12/23 History lisinopril 40 mg tablet 40 mg PO DAILY@1200 09/03/22 02/12/23 02/12/23 History metformin 1,000 mg tablet 1,000 mg PO BID@1200,2100 09/03/22 02/12/23 02/12/23 History metoprolol succinate 50 mg capsule 50 mg PO DAILY@1200 09/03/22 02/12/23 02/12/23 History sprinkle, ext. release 24 hr omeprazole 20 mg capsule,delayed 20 mg PO DAILY 09/03/22 02/12/23 02/12/23 History release dulaglutide 1.5 mg/0.5 mL 1.5 mg subcut TH 09/04/22 02/12/23 02/12/23 History subcutaneous pen injector (Trulicity) folic acid 1 mg tablet 1 mg PO DAILY@1200 09/04/22 02/12/23 02/12/23 History insulin lispro 100 unit/mL See Rx Instructions .Route .COMPLEX 09/04/22 02/12/23 02/12/23 History subcutaneous solution (Humalog U-100 Insulin) warfarin 5 mg tablet 2.5 mg PO MOWEFRSA@1800 09/04/22 02/12/23 02/10/23 History clopidogrel 75 mg tablet 75 mg PO DAILY 01/06/23 02/12/23 02/12/23 History flash glucose scanning reader #1 ea 01/06/23 Unknown History (FreeStyle Pat 2 [place]) flash glucose sensor (FreeStyle #1 ea 01/06/23 Unknown History Pat 2 Sensor kit) ammonium lactate 12 % topical cream 1 appl topical DAILY PRN Wound Care 02/12/23 02/12/23 Unknown History metoprolol succinate 25 mg 25 mg PO DAILY@1200 02/12/23 02/12/23 02/12/23 History tablet,extended release 24 hr silver sulfadiazine 1 % topical 1 appl topical DAILY PRN Wound Care 02/12/23 02/12/23 Unknown History cream sub-q insulin device, 20 unit 02/12/23 02/12/23 Unknown History (V-GO 20 device) warfarin 5 mg tablet 5 mg PO SUTUTH@1800 02/12/23 02/12/23 02/11/23 History Physical Exam Vital Signs: Vital Signs: Last Vital Signs Temp 98.4 F 02/13/23 06:15 Pulse 106 H 02/13/23 10:33 Resp 22 H 02/13/23 10:33 BP 112/66 02/13/23 10:33 Pulse Ox 95 02/13/23 10:33 O2 Del Method Nasal Cannula 02/13/23 10:33 O2 Flow Rate 3 02/13/23 10:33 BMI result Body Mass Index 35.1 Const: General: cooperative, comfortable, no acute distress, alert and awake Nutritional Appearance: obese Orientation/consciousness: patient oriented x3 HEENT: Head: Yes normocephalic and Yes atraumatic Neck: Neck: Yes trachea midline, Yes supple and Yes no JVD Resp: Effort & Inspection: decreased respiratory effort Auscultation: clear to auscultation bilaterally and diminished lung sounds Cardio: Jugular venous distension: no JVD Rate: tachycardic Rhythm: abnormal rhythm irregularly irregular Heart sounds: S1 normal heart sound present, S2 normal heart sound present, no click, no gallops and no murmurs GI: Inspection: Yes obesity Auscultation: normal bowel sounds Skin: General skin exam: ecchymosis Neuro: General: patient oriented x3 and no focal motor deficits Extrem: General: No clubbing, No cyanosis and Yes edema Objective Labs and Meds 02/13/23 05:34 02/13/23 05:34 Lab results: Laboratory Results - last 24 hr 02/12/23 02/12/23 02/12/23 13:46 15:05 17:30 WBC 5.6 RBC 5.35 Hgb 11.9 L Hct 40.4 L MCV 75.5 L MCH 22.2 L MCHC 29.5 L RDW 17.7 H Plt Count 265 MPV 8.7 L Immature Gran % (Auto) 0.4 Neut % (Auto) 66.7 Lymph % (Auto) 14.6 L [place] % (Auto) 13.6 H Eos % (Auto) 4.3 H Baso % (Auto) 0.4 Lymph # (Auto) 0.8 L [place] # (Auto) 0.8 Eos # (Auto) 0.2 Baso # (Auto) 0.0 Abs Immat Gran (auto) 0.02 Absolute Neuts (auto) 3.7 Absolute Nucleated RBC 0.000 Nucleated RBC % (auto) 0.0 PT 32.7 H INR 2.7 H Sodium 145 Potassium 3.9 Chloride 109 H Carbon Dioxide 26 Anion Gap 14 BUN 12 Creatinine 0.81 Estim Creat Clear Calc 125.2 Estimated GFR > 60 POC Glucose Random Glucose 112 Calcium 8.4 Magnesium 0.8 L* 1.2 L* Iron 21 L TIBC 244 % Saturation 9 L Unsat Iron Binding 223 Ferritin 62 Total Bilirubin 1.0 AST 18 ALT 10 Alkaline Phosphatase 85 Troponin I High Sens < 2.7 B-Natriuretic Peptide 206 H Total Protein 7.3 Albumin 3.3 L 02/13/23 02/13/23 05:34 07:32 WBC 5.9 RBC 5.60 Hgb 12.3 L Hct 42.2 MCV 75.4 L MCH 22.0 L MCHC 29.1 L RDW 17.7 H Plt Count 241 MPV 8.7 L Immature Gran % (Auto) Neut % (Auto) Lymph % (Auto) [place] % (Auto) Eos % (Auto) Baso % (Auto) Lymph # (Auto) [place] # (Auto) Eos # (Auto) Baso # (Auto) Abs Immat Gran (auto) Absolute Neuts (auto) Absolute Nucleated RBC 0.000 Nucleated RBC % (auto) 0.0 PT 29.0 H INR 2.4 H Sodium 143 Potassium 4.8 D Chloride 106 Carbon Dioxide 25 Anion Gap 17 BUN 12 Creatinine 0.78 Estim Creat Clear Calc 130.0 Estimated GFR > 60 POC Glucose 117 H Random Glucose 120 H Calcium 9.0 D Magnesium 1.7 Iron TIBC % Saturation Unsat Iron Binding Ferritin Total Bilirubin AST ALT Alkaline Phosphatase Troponin I High Sens B-Natriuretic Peptide Total Protein Albumin Imaging Radiologist's impression: Impressions Chest X-Ray 02/12/23 16:10 IMPRESSION: No acute intrathoracic disease. Chronic scarring/atelectasis, left greater than right. Assessment and Plan (1) Acute CHF: Status: Acute Patient with early stages of mostly right-sided heart failure most likely related to atrial fibrillation which is chronic for at least last 7 years with mild LV systolic dysfunction on from before. Clinically appears mildly fluid overloaded has responded to IV diuretics. Continue IV diuresis with Lasix. Strict intake and output chart needs to be pursued. Continue to aggressively replace magnesium and potassium as need be. Continue trend BMP and BNP as well as magnesium level. Continue aggressive rate control, see below. We discussed about the findings of heart failure, he was not aware of this could be a diagnosis but we discuss forms of heart failure and cause for his heart failure. He understood very well. Should provide CHF education for him. Will require long-term diuretic therapy. He is already on Jardiance therapy at this point time. May benefit from spironolactone therapy as outpatient also. Unlikely that we will be able to pursue rhythm control approach in the long run given his long-standing atrial fibrillation. (2) Atrial fibrillation: Status: Acute Atrial fibrillation with recent stenting. Continue warfarin therapy currently therapeutic INR has been on warfarin for more than 20 years. Also continue concomitant Plavix therapy to reduce risk of stent thrombosis. Rate is not adequately controlled. Continue Cardizem drip and start metoprolol 25 mg q.6 hours and also IV digoxin loading. Better rate control is necessary. As mentioned above will perform echocardiogram and determine biatrial chamber size. Most likely feels significant biatrial chamber size unlikely to be successful in rhythm management. However this may need to be considered in the future if he has progressive heart failure syndrome. Will continue to follow with you Time Spent With Patient Time: Total time managing care of this patient today ____ minutes. Procedures Date of Service Date of Service: 02/13/23
--- NOTE | 2023-02-13 11:35 | PC.NURSE ---
patient [place] cath bag emptied 1000ml of urine drained, patient sitting up in bed, visitor at bedside. respirations equal and unlabored, patient shows no signs of distress
--- NOTE | 2023-02-13 11:49 | HO.PM.IMPN ---
Subjective Subjective Date of Service: 02/13/23 Interval History: no complaints Physical Exam Vital Signs: Vital Signs: Last Vital Signs Temp 98.4 F 02/13/23 06:15 Pulse 106 H 02/13/23 10:33 Resp 22 H 02/13/23 10:33 BP 112/66 02/13/23 10:33 Pulse Ox 95 02/13/23 10:33 O2 Del Method Nasal Cannula 02/13/23 10:33 O2 Flow Rate 3 02/13/23 10:33 BMI result Body Mass Index 35.1 Const: General: cooperative, comfortable, no acute distress, alert and awake Nutritional Appearance: obese Orientation/consciousness: patient oriented x3 HEENT: Head: Yes normocephalic and Yes atraumatic Neck: Neck: Yes trachea midline, Yes supple and Yes no JVD Resp: Effort & Inspection: decreased respiratory effort Auscultation: clear to auscultation bilaterally and diminished lung sounds Cardio: Jugular venous distension: no JVD Rate: tachycardic Rhythm: abnormal rhythm irregularly irregular Heart sounds: S1 normal heart sound present, S2 normal heart sound present, no click, no gallops and no murmurs GI: Inspection: Yes obesity Auscultation: normal bowel sounds Skin: General skin exam: ecchymosis Neuro: General: patient oriented x3 and no focal motor deficits Extrem: General: No clubbing, No cyanosis and Yes edema Objective Data Active Medications Acetaminophen (Acetaminophen 325 Mg Tablet) 650 mg PO Q6H PRN PRN Reason: Pain, Mild (Pain Scale 1-3) Last Admin: 02/13/23 08:18 Dose: 650 mg Documented By: SAM Atorvastatin Calcium (Atorvastatin Calcium 40 Mg Tablet) 40 mg PO BEDTIME COUNTS INCLUDE 234 BEDS AT [facility] Clopidogrel Bisulfate (Clopidogrel Bisulfate 75 Mg Tablet) 75 mg PO DAILY COUNTS INCLUDE 234 BEDS AT THE [facility] Last Admin: 02/13/23 08:18 Dose: 75 mg Documented By: SAM Dextrose (Dextrose 50 % 25 Gm/50 Ml Syringe) 25 gm IVPUSH Q15M PRN; Protocol PRN Reason: per Hypoglycemia Standing Ord. Digoxin (Digoxin 0.5 Mg/2 Ml Ampul) 0.25 mg IVPUSH Q6H COUNTS INCLUDE 234 BEDS AT THE [facility] Stop: 02/13/23 22:31 Folic Acid (Folic Acid 1 Mg Tablet) 1 mg PO DAILY@1200 JOY Furosemide (Furosemide 40 Mg/4 Ml Vial) 40 mg IVPUSH DAILY COUNTS INCLUDE 234 BEDS AT THE [facility]; Protocol Last Admin: 02/13/23 08:17 Dose: 40 mg Documented By: SAM Glucose (Glucose Gel 15 Gm Gel..Gram.) 15 gm PO Q15M PRN; Protocol PRN Reason: per Hypoglycemia Standing Ord. Diltiazem HCl 125 mg/ Sodium (Chloride) 125 mls @ 0 mls/hr IVCONT .Q0M COUNTS INCLUDE 234 BEDS AT THE [facility]; Protocol Last Titration: 02/13/23 10:17 Dose: 0 mg/hr, 0 mls/hr Documented By: SAM Insulin Pump (Subcutaneous Insulin Pump) 1 each SUBCUT QIDACHS COUNTS INCLUDE 234 BEDS AT THE [facility]; Protocol Last Admin: 02/13/23 07:49 Dose: Not Given Documented By: SAM Non-Admin Reason: No Insulin Coverage Lactic Acid (Ammonium Lactate 12 % Cream 140 Gm Tube) 1 appl TOPICAL DAILY PRN; Protocol PRN Reason: Wound Care Lisinopril (Lisinopril 40 Mg Tablet) 40 mg PO DAILY@1200 JOY; Protocol Magnesium Oxide (Magnesium Oxide 400 Mg Tablet) 400 mg PO BIDPC COUNTS INCLUDE 234 BEDS AT THE [facility] Melatonin (Melatonin 3 Mg Tablet) 6 mg PO BEDTIME PRN PRN Reason: Insomnia Metoprolol Tartrate (Metoprolol Tartrate 25 Mg Tablet) 25 mg PO QID COUNTS INCLUDE 234 BEDS AT THE [facility]; Protocol Non-Formulary Medication (Dulaglutide [Trulicity]) 1.5 mg SUBCUT TH COUNTS INCLUDE 234 BEDS AT THE [facility] Ondansetron HCl (Ondansetron Hcl 4 Mg/2 Ml Vial) 4 mg IVPUSH Q8H PRN PRN Reason: Nausea and Vomiting Silver Sulfadiazine (Silver Sulfadiazine 1 % Cream 20 Gm Tube) 1 appl TOPICAL DAILY PRN PRN Reason: Wound Care Sodium Chloride (0.9 % Sodium Chloride Flush 3 Ml Syringe) 3 ml IVFLUSH QSHIFT COUNTS INCLUDE 234 BEDS AT THE [facility] Last Admin: 02/13/23 08:32 Dose: 3 ml Documented By: SAM Warfarin Sodium (Warfarin Sodium 2.5 Mg Tablet) 2.5 mg PO MOWEFRSA@1800 COUNTS INCLUDE 234 BEDS AT THE [facility] Last Admin: 02/13/23 00:03 Dose: 2.5 mg Documented By: LALITHA Warfarin Sodium (Warfarin Sodium 5 Mg Tablet) 5 mg PO SUTUTH@1800 COUNTS INCLUDE 234 BEDS AT THE [facility] Labs 02/13/23 05:34 02/13/23 05:34 Labs: Laboratory Results - last 24 hr 02/12/23 02/12/2302/12/23 13:46 15:05 17:30 MCV 75.5 L MCH 22.2 L MCHC 29.5 L RDW 17.7 H Plt Count 265 MPV 8.7 L Immature Gran % (Auto) 0.4 Neut % (Auto) 66.7 Lymph % (Auto) 14.6 L [place] % (Auto) 13.6 H Eos % (Auto) 4.3 H Baso % (Auto) 0.4 Lymph # (Auto) 0.8 L [place] # (Auto) 0.8 Eos # (Auto) 0.2 Baso # (Auto) 0.0 Abs Immat Gran (auto) 0.02 Absolute Neuts (auto) 3.7 Absolute Nucleated RBC 0.000 Nucleated RBC % (auto) 0.0 PT 32.7 H INR 2.7 H Anion Gap 14 Estim Creat Clear Calc 125.2 Estimated GFR > 60 POC Glucose Random Glucose 112 Calcium 8.4 Magnesium 0.8 L* 1.2 L* Iron 21 L TIBC 244 % Saturation 9 L Unsat Iron Binding 223 Ferritin 62 Total Bilirubin 1.0 AST 18 ALT 10 Alkaline Phosphatase 85 B-Natriuretic Peptide 206 H Total Protein 7.3 Albumin 3.3 L 02/13/23 02/13/23 05:34 07:32 MCV 75.4 L MCH 22.0 L MCHC 29.1 L RDW 17.7 H Plt Count 241 MPV 8.7 L Immature Gran % (Auto) Neut % (Auto) Lymph % (Auto) [place] % (Auto) Eos % (Auto) Baso % (Auto) Lymph # (Auto) [place] # (Auto) Eos # (Auto) Baso # (Auto) Abs Immat Gran (auto) Absolute Neuts (auto) Absolute Nucleated RBC 0.000 Nucleated RBC % (auto) 0.0 PT 29.0 H INR 2.4 H Anion Gap 17 Estim Creat Clear Calc 130.0 Estimated GFR > 60 POC Glucose 117 H Random Glucose 120 H Calcium 9.0 D Magnesium 1.7 Iron TIBC % Saturation Unsat Iron Binding Ferritin Total Bilirubin AST ALT Alkaline Phosphatase B-Natriuretic Peptide Total Protein Albumin Assessment and Plan (1) Acute CHF: Status: Acute Plan 72M PMH dm, gerd, cad, pafib, DVT, chornic venous stasis, presented with afib rvr, le edema, and hypomagensemia Paroxysmal atrial fibrillation Cardizem, metoprolol, dig Coumadin Cardial following Follow-up echo Acute hypomagnesemia Hold PPI Replace and monitor Acute on chronic systolic CHF IV Lasix Diabetes Insulin Coronary disease Plavix, Coumadin Severe obesity Weight loss recommended History of DVT Coumadin Full code Reason for continued hospitalization: IV diuretics, better heart rate control needed Time Spent With Patient Time: Total time managing care of this patient today ____ minutes. Quality Stroke Does the patient have a stroke diagnosis?: No VTE Prior VTE?: Yes VTE Risk Level:: Medical - moderate - high VTE Device Contraindication: Treatment Not Indicated VTE Drug Contraindication: N/A - Med Ordered
[2023-02-13 13:46] LABS: Glucose, Whole Blood 93 mg/dL (60-115)
[2023-02-13] MEDS: Metoprolol Tartrate 25 MG TABLET PO ×3 (14:48→20:40)
[2023-02-13] MEDS: lisinopriL 40 MG TABLET PO (14:48)
[2023-02-13] MEDS: Folic Acid 1 MG TABLET PO (14:48)
[2023-02-13] MEDS: Digoxin 0.5 MG/2 ML AMPUL 0.25 MG IVPUSH ×2 (16:37→21:14)
[2023-02-13] MEDS: Magnesium Oxide 400 MG TABLET PO (16:37)
[2023-02-13 16:41] LABS: Glucose, Whole Blood 250 mg/dL (60-115)
[2023-02-13] MEDS: Warfarin Sodium 5 MG TABLET PO (17:30)
[2023-02-13 20:25] LABS: Glucose, Whole Blood 131 mg/dL (60-115)
[2023-02-13] MEDS: Atorvastatin Calcium 40 MG TABLET PO (20:40)
[2023-02-14] VITALS (7 sets, daily range): BP systolic 126–169; BP diastolic 63–95; PULSE 83–114; RESP 16–24; TEMP 36.3–37.6; O2SAT 91–93
[2023-02-14] MEDS: dilTIAZem HCL 125 MG in 0.9 % Sodium Chloride 100 ML 10 MG IVCONT (06:55)
--- NOTE | 2023-02-14 07:00 | CA_ITS ---
Transthoracic Echocardiogram Patient (Last, First, Middle): Randy Tan J Gender: Male Date of : 1950 Age: 72 Procedure Date: 02/14/2023 Procedure Type: Transthoracic Echocardiogram Location: [facility] [place] Height: 193.04 cm Weight: 130.64 kg BSA: 2.59 m2 Heart Rate: bpm BP: 151 / 68 mmHg Java Software Developer: Referring MD: Fredi Welch MD Supervisor Heavy Equipment: Johnnie Cuellar MD Symptoms: afib with rvr Study Quality: Technically Difficult ECG Rhythm: Atrial Fibrillation Conclusions: - 1. Normal LVEF of 55-60% with moderate LVH 2. Moderate left atrial enlargement next 3. Limited visualization of cardiac valves with trivial aortic regurgitation 4. Upper limits of normal ascending aortic size Findings Procedure Information Contrast agent, definity, is being given per protocol without apparent complications. Left Ventricle Normal left ventricular size and systolic function. There is moderately increased left ventricular wall thickness. The visually estimated ejection fraction is between 55-60%. Diastolic function is indeterminate on the basis of available data. Right Ventricle The right ventricle was not well visualized. Atria The left atrium is moderately dilated. Interatrial shunt cannot be excluded. The right atrium is mildly dilated. Aortic Valve The aortic valve was not well visualized. There is no aortic valve stenosis. There is trace (trivial) aortic valve regurgitation. Mitral Valve The mitral valve was not well visualized. There is trace mitral valve regurgitation. There is no mitral valve stenosis. Pulmonic Valve The pulmonic valve was not well visualized. Tricuspid Valve The tricuspid valve was not well visualized. Tricuspid regurgitation envelope is inadequate for calculation of right ventricular systolic pressure. Indeterminate right atrial pressure. Great Vessels The pulmonary artery was not well visualized. Venous The inferior vena cava was not well visualized. Pericardium/Pleural The pericardium was not well visualized. Prior Study Comparison No prior study available for comparison. Measurements 2D Linear Measurements IVSd: 1.54 0.6-0.9/0.6-1.0 cm LVIDd: 4.69 3.9-5.3/4.2-5.9 cm LVIDd Index: 1.81 2.4-3.2/2.2-3.1 cm/m2 LVIDs: 3.33 2.0-3.6 cm LVPWd: 1.52 0.7-1.1 cm LA Diam: 5.40 2.7-3.8/3.0-4.0 cm LAIDs Index: 2.08 1.5-2.3 cm/m2 LV Mass: 376.82 67-162/88-224 g LV Mass Index: 145.49 43-95/49-115 g/m2 LVOT Diam: 2.10 3.0+(-)1.3 cm Mitral Valve MV Pk E: 0.78 MV Decel Time: 200.00 E'Lateral: 14.40 E'Medial: 12.80 E/E' Med: 6.10 E/E' Lat: 5.40 PHT: 59.00 MVA PHT: 3.73 Decel [place]: 3.92 Aortic Valve AoV Pk Adan: 1.35 AoV Mn Adan: 0.86 AoV VTI: 0.23 AoV Pk Grad: 7.00 Aov Mn Grad: 4.00 JONY Cont.VTI: 2.24 LVOT LVOT Pk Adan: 0.88 LVOT Mn Adan: 0.59 LVOT VTI: 0.15 LVOT Pk Grad: 3.00 LVOT Mn Grad: 2.00 LVOT Diam: 2.10 LVOT Area: 3.46 Diastolic Function MV Pk E: 0.78 E'Medial: 12.80 E/E' Med: 6.10 E' Laterial: 14.40 E/E' Lat: 5.40 Right Ventricle TAPSE (mm): 28.70 TVS' Adan: 12.90 Tricuspid Valve TR Pk Adan: 2.20 TR Pk Grad: 19.00 Great Vessels Aorta Sinus of Valsalva: 3.70 2.0-3.5 cm Ao Asc: 3.60 2.1-3.4 cm Pulmonary Valve PV Pk Adan: 0.87 Peak PV Grad: 3.00 Updated in Other Vendor System with Status of Final Johnnie Cuellar MD electronically signed on 02/14/2023 2:18:10 PM with status of Final
[2023-02-14 07:29] LABS: Hematocrit 41.9 % (42.0-52.0); Hemoglobin 12.4 g/dl (14.0-18.0); Mean Corpuscular HGB Conc 29.6 g/dl (31.0-36.0); Mean Corpuscular Hemoglobin 22.1 pg (27.0-33.0); Mean Corpuscular Volume 74.6 fL (80.0-98.0); Mean Platelet Volume 8.8 fL (9.4-12.4); Platelet Count 268 X10*3/uL (160-400); Red Blood Count 5.62 X10*6/uL (4.60-5.80); Red Cell Distribution Width 17.6 % (11.0-16.0); White Blood Count 6.5 X10*3/uL (4.8-10.8)
[2023-02-14 07:48] LABS: INTERNATIONAL NORM RATIO 2.4 (0.9-1.1); Prothrombin Time 28.8 SEC (11.1-13.3)
[2023-02-14 07:55] LABS: Glucose, Whole Blood 137 mg/dL (60-115)
[2023-02-14 07:59] LABS: Anion Gap 14 (12-20); Blood Urea Nitrogen 14 mg/dL (9-16); Calcium 8.8 mg/dL (8.4-10.2); Carbon Dioxide 30 mmol/L (22-29); Chloride 103 mmol/L (96-108); Creatinine Clr Calc Pharmacy 142.8; Estimated Glomerular Filt Rate > 60; Glucose Fasting 126 mg/dL (60-99); Potassium 4.2 mmol/L (3.3-5.1); Sodium 143 mmol/L (135-145)
[2023-02-14] MEDS: Magnesium Oxide 400 MG TABLET PO ×2 (08:08→17:51)
[2023-02-14] MEDS: Metoprolol Tartrate 25 MG TABLET PO ×4 (08:08→20:46)
[2023-02-14] MEDS: Furosemide 40 MG/4 ML VIAL IVPUSH (08:08)
[2023-02-14] MEDS: 0.9 % Sodium Chloride Flush 3 ML SYRINGE IVFLUSH ×3 (08:08→20:46)
[2023-02-14] MEDS: Clopidogrel Bisulfate 75 MG TABLET PO (08:08)
--- NOTE | 2023-02-14 09:02 | MHC.CM.PN ---
IMM 02/14/23 DELIVERED TO BEDSIDE HOWEVER PT REQUESTED CM RETURN LATER, CM TO REVISIT.
--- NOTE | 2023-02-14 09:14 | P.CDIM_ITS ---
PROVIDER RESPONSE TEXT: To clarify, the appropriate diagnosis supported by the clinical indicators: Diabetes mellitus Type 2 with hyperglycemia QUERY TEXT: PHYSICIAN'S DOCUMENTATION REQUEST Date of Query: 02/14/2023 08:08 AM EDT Patient Name: Randy Tan Admit Date: 02/13/2023 Dear Jay Napoles, A review of the medical record indicates additional documentation may be needed. Please review below and update the documentation accordingly. Clinical Indicators: LAB FINDINGS: POC glucose 117 H 93 250 H Uses own insulin pump which we will continue Diabetic diet Please clarify the following regarding the Complications of Diabetes Mellitus (DM): Diabetes mellitus Type 2 with hyperglycemia Diabetes mellitus Type 2 uncontrolled, poorly controlled etc. No complication of Diabetes mellitus Other (explain)Clinically unable to determine (explain)Thank you, Izabela Pittman, CCS, CDIS Use of terms such as suspected, likely, concern for, or probable (associated with a specific diagnosi s that is being evaluated, monitored, or treated as if it exists) are acceptable and can be coded in the inpatient se tting, when documented at the time of discharge. Please use your independent medical judgment in providing your response. THIS QUERY IS PART OF THE PERMANENT MEDICAL RECORD
--- NOTE | 2023-02-14 11:06 | MHC.CM.PN ---
CM ATTEMPTED TO MEET W/PT FOR SECOND TIME, WOUND NURSE IN ROOM, CM TO REVISIT.
[2023-02-14 11:27] LABS: Glucose, Whole Blood 184 mg/dL (60-115)
--- NOTE | 2023-02-14 11:29 | P.PNIM_ITS ---
Subjective Subjective Date of Service: 02/14/23 Interval History: still sob Physical Exam 2 Vital Signs: Vital Signs: Last Vital Signs Temp 98.3 F 02/14/23 07:27 Pulse 89 02/14/23 07:27 Resp 24 H 02/14/23 07:27 BP 133/72 02/14/23 07:27 Pulse Ox 93 02/14/23 07:27 O2 Del Method Nasal Cannula 02/14/23 07:27 O2 Flow Rate 1 02/14/23 07:27 BMI result Body Mass Index 35.1 Const: General: cooperative, comfortable, no acute distress, alert and awake Nutritional Appearance: obese Orientation/consciousness: patient oriented x3 HEENT: Head: Yes normocephalic and Yes atraumatic Neck: Neck: Yes trachea midline, Yes supple and Yes no JVD Resp: Effort & Inspection: decreased respiratory effort Auscultation: clear to auscultation bilaterally and diminished lung sounds Cardio: Jugular venous distension: no JVD Rate: tachycardic Rhythm: a bnormal rhythm irregularly irregular Heart sounds: S1 normal heart sound present, S2 normal heart sound present, no click, no gallops and no murmurs GI: Inspection: Yes obesity Auscultation: normal bowel sounds Skin: General skin exam: ecchymosis Neuro: General: patient oriented x3 and no focal motor deficits Extrem: General: No clubbing, No cyanosis and Yes edema Objective Data Active Medications Acetaminophen (Acetaminophen 325 Mg Tablet) 650 mg PO Q6H PRN PRN Reason: Pain, Mild (Pain Scale 1-3) Last Admin: 02/13/23 08:18 Dose: 650 mg Documented By: SAM Atorvastatin Calcium (Atorvastatin Calcium 40 Mg Tablet) 40 mg PO BEDTIME COUNT INCLUDES THE [facility] Last Admin: 02/13/23 20:40 Dose: 40 mg Documented By: TATIANA Clopidogrel Bisulfate (Clopidogrel Bisulfate 75 Mg Tablet) 75 mg PO DAILY COUNT INCLUDES THE [facility] Last Admin: 02/14/23 08:08 Dose: 75 mg Documented By: TATIANA Dextrose (Dextrose 50 % 25 Gm/50 Ml Syringe) 25 gm IVPUSH Q15M PRN; Protocol PRN Reason: per Hypoglycemia Standing Ord. Folic Acid (Folic Acid 1 Mg Tablet) 1 mg PO DAILY@1200 COUNT INCLUDES THE [facility] Last Admin: 02/13/23 14:48 Dose: 1 mg Documented By: TATIANA Furosemide (Furosemide 40 Mg/4 Ml Vial) 40 mg IVPUSH DAILY COUNT INCLUDES THE [facility]; Protocol Last Admin: 02/14/23 08:08 Dose: 40 mg Documented By: TATIANA Glucose (Glucose Gel 15 Gm Gel..Gram.) 15 gm PO Q15M PRN; Protocol PRN Reason: per Hypoglycemia Standing Ord. Diltiazem HCl 125 mg/ Sodium (Chloride) 125 mls @ 0 mls/hr IVCONT .Q0M COUNT INCLUDES THE [facility]; Protocol Last Titration: 02/14/23 11:09 Dose: 5 mg/hr, 5 mls/hr Documented By: TATIANA Insulin Pump (Subcutaneous Insulin Pump) 1 each SUBCUT QIDACHS COUNT INCLUDES THE [facility]; Protocol Last Admin: 02/14/23 07:33 Dose: Not Given Documented By: TATIANA Non-Admin Reason: No Insulin Coverage Lactic Acid (Ammonium Lactate 12 % Cream 140 Gm Tube) 1 appl TOPICAL DAILY PRN; Protocol PRN Reason: Wound Care Lisinopril (Lisinopril 40 Mg Tablet) 40 mg PO DAILY@1200 JOY; Protocol Last Admin: 02/13/23 14:48 Dose: 40 mg Documented By: TATIANA Magnesium Oxide (Magnesium Oxide 400 Mg Tablet) 400 mg PO BIDPC COUNT INCLUDES THE [facility] Last Admin: 02/14/23 08:08 Dose: 400 mg Documented By: TATIANA Melatonin (Melatonin 3 Mg Tablet) 6 mg PO BEDTIME PRN PRN Reason: Insomnia Metoprolol Tartrate (Metoprolol Tartrate 25 Mg Tablet) 25 mg PO QID COUNT INCLUDES THE [facility]; Protocol Last Admin: 02/14/23 08:08 Dose: 25 mg Documented By: TATIANA Non-Formulary Medication (Dulaglutide [Trulicity]) 1.5 mg SUBCUT TH COUNT INCLUDES THE [facility] Ondansetron HCl (Ondansetron Hcl 4 Mg/2 Ml Vial) 4 mg IVPUSH Q8H PRN PRN Reason: Nausea and Vomiting Silver Sulfadiazine (Silver Sulfadiazine 1 % Cream 20 Gm Tube) 1 appl TOPICAL DAILY PRN PRN Reason: Wound Care Sodium Chloride (0.9 % Sodium Chloride Flush 3 Ml Syringe) 3 ml IVFLUSH QSHIFT COUNT INCLUDES THE [facility] Last Admin: 02/14/23 08:08 Dose: 3 ml Documented By: TATIANA Warfarin Sodium (Warfarin Sodium 2.5 Mg Tablet) 2.5 mg PO MOWEFRSA@1800 JOY Last Admin: 02/13/23 00:03 Dose: 2.5 mg Documented By: LALITHA Warfarin Sodium (Warfarin Sodium 5 Mg Tablet) 5 mg PO SUTUTH@1800 JOY Last Admin: 02/13/23 17:30 Dose: 5 mg Documented By: TATIANA Labs 02/14/23 06:44 02/14/23 06:44 Labs: Laboratory Results - last 24 hr 02/13/23 02/13/23 02/13/23 13:42 16:26 20:21 MCV MCH MCHC RDW Plt Count MPV Absolute Nucleated RBC Nucleated RBC % (auto) PT INR Anion Gap Estim Creat Clear Calc Estimated GFR POC Glucose 93 250 H 131 H Fasting Glucose Calcium 02/14/23 02/14/23 02/14/23 06:44 07:31 11:20 MCV 74.6 L MCH 22.1 L MCHC 29.6 L RDW 17.6 H Plt Count 268 MPV 8.8 L Absolute Nucleated RBC 0.000 Nucleated RBC % (auto) 0.0 PT 28.8 H INR 2.4 H Anion Gap 14 Estim Creat Clear Calc 142.8 Estimated GFR > 60 POC Glucose 137 H 184 H Fasting Glucose 126 H Calcium 8.8 Assessment and Plan (1) Acute CHF: Status: Acute Plan 72M PMH dm, gerd, cad, pafib, DVT, chornic venous stasis, presented with afib rvr, le edema, and hypomagensemia Paroxysmal atrial fibrillation with rvr Cardizem, metoprolol, dig Coumadin Cardial following Follow-up echo Acute hypomagnesemia Hold PPI Replace and monitor Acute on chronic systolic CHF IV Lasix Diabetes Insulin Coronary disease Plavix, Coumadin Severe obesity Weight loss recommended History of DVT Coumadin Full code Reason for continued hospitalization: IV diuretics, better heart rate control needed Time Spent With Patient Time: Total time managing care of this patient today ____ minutes. Quality Stroke Does the patient have a stroke diagnosis?: No VTE Prior VTE?: Yes VTE Risk Level:: Medical - moderate - high VTE Device Contraindication: Treatment Not Indicated VTE Drug Contraindication: N/A - Med Ordered
--- NOTE | 2023-02-14 11:51 | HO.SKINPHOTO ---
Location:Lower Legs Category: Right Leg Stage: Length: Width: Depth: c Location:Left Leg Category: Stage: Length: Width: Depth: cm Location: Category: Stage: Length: Width: Depth: cm Location: Category: Stage: Length: Width: Depth: cm Location: Category: Stage: Length: Width: Depth: cm Location: Category: Stage: Length: Width: Depth: cm
--- NOTE | 2023-02-14 11:53 | HO.WOUND ---
Wound Consult: Initial 72yr old male admitted to [facility] on?02/12/23 21:12- See progress notes and H&P for detailed history. Arrival to bed side pt was agreeable to my assessment pt reports he has treated at various wound clinics in the past and uses over the counter compression therapy at times. He reports he has used prescribed compression in the distant past but is unable to find a provider to aid in him getting personalized compression therapy. The pt will benefit from wound clinic follow up once discharged as current NYDIA's will likely be needed for application of prescribed compression therapy. Pt is agreeable to [facility] wound clinic if provider feels appropriate. Pt reports legs have been treated at home with Silvadine 3-4 days as she does not like to chage and shower daily. We talked about routine bathing and the benefits to his thick scaled lower legs and the benefits of daily dressings while the wound is progressing. He reports understanding and is agreeable to daily dressing changes while inpatient. Right Leg Etiology: Venous Dermatitis Wounds Measurements: 4cm x 6cm x 0.2cm Wound Bed: Dusky red moist tissue with scattered areas of yellow adherent slough Drainage / Odor: mild odorous yellow drainage noted on dressing when removed Edges: ? irregular and attached Loyda wound: ? Thick scaling flaking tissue removed with washing revealing intact tissue, hemosiderin staining No Induration, No Fluctuance, Mild Erythema noted Pain: denies pain Goals of Treatment: ? Elevate lower legs off of bed surface - Moisture management with Durafiber AG - refer to out pt wound clinic and lymphadema specialist Left Leg Etiology: Venous Dermatitis Wounds Measurements: 2cm x 1cm x 0.1cm Wound Bed: red moist clean tissue Drainage / Odor: Serosang drainage Edges: ? well defined and attached Loyda wound: Thick scaling flaking tissue removed with washing revealing intact tissue, hemosiderin staining No Induration, No Fluctuance, Mild Erythema noted Pain: denies pain Goals of Treatment: Elevate lower legs off of bed surface - Moisture management with Durafiber AG Recommendations: 1. Turn and Reposition every 2 hours and as needed for patient comfort consider use of wedges available in the storeroom. 2. Off Load all bony prominences with use of pillows, wedges and heel boots. 3. Monitor for incontinence and moisture control. 4. Provide adequate and supplemental nutrition. 5. Order or Continue low air loss mattress. 6. Maintain blood glucose levels per Providers orders. 7. Bilateral Lower Legs - Elevate Lower Legs - Cleanse with normal saline and pat dry. ?Apply barrier cream to loyda-wound, cover wound beds with cut to size Durafiber AG, cover with ABD pads, Gauze roll. Change Daily. Refer to outpt wound clinic for outpatient treatment. Re-consult wound care Nurse for wound deterioration or wound changes.
--- NOTE | 2023-02-14 11:56 | MHC.CM.PN ---
EMR REVIEWED, PT W/AFIB W/RVR, CM MET W/PT WHO REPORTS HE LIVES W/HIS S.O. PIPE, PT REPORTS HE IS INDEPENDENT W/CARE EXCEPT PIPE DOES PT'S LEG DRESSING/WRAPS FOR HIM, PT REPORTS HE HAS 2 CANES AT HOME, GRAB BARS IN SHOWER AND BY TOILET FOR FUTURE USE, PT DOES REPORT WHEN HE IS OUTSIDE W/DOGS HE USES A SHOVEL FOR BALANCE THE DOGS CAN ABRUPTLY JERK AWAY FROM HIM. PT DENIES HAVING HOME SERVICES AND GOAL FOR DC IS HOME NO SERVICES. PT VERIFIES PCP AND HCP ON FILE ARE CORRECT, PFIZER X4.
[2023-02-14] MEDS: Folic Acid 1 MG TABLET PO (12:09)
[2023-02-14] MEDS: lisinopriL 40 MG TABLET PO (12:09)
--- NOTE | 2023-02-14 14:18 | P.PNCA_ITS ---
Subjective Subjective Date of Service: 02/14/23 Interval history: Randy has been diuresing well. Magnesium level is improved. Heart rate is much improved since adding digoxin switching to p.o. metoprolol and his Cardizem drip is down to 5 mg an hour. He says his shortness of breath is better but when he talks for long period time he does get short of breath. Echocardiogram done showed preserved LV ejection fraction with moderate LVH and at least moderate left atrial enlargement otherwise technically limited study. Right- sided pressures could not be evaluated Accurately due to body habitus. Noted hematuria Review of Systems Constitutional: Reports no additional constitutional complaints Eyes: Reports no additional eye complaints Cardiovascular: Denies chest pain, Reports leg edema, Denies lightheadedness, Denies palpitations and Reports dyspnea Respiratory: Reports no additional respiratory complaints and Reports dyspnea Gastrointestinal: Reports no additional gastrointestinal complaints Genitourinary: Reports no additional male genitourinary complaints Musculoskeletal: Reports no additional musculoskeletal complaints Reports system reviewed and no additional complaints, except as documented Endocrine: Denies palpitations Physical Exam Vital Signs: Last Vital Signs Temp 97.3 F 02/14/23 12:00 Pulse 92 02/14/23 12:00 Resp 24 H 02/14/23 12:00 BP 126/70 02/14/23 12:00 Pulse Ox 93 02/14/23 12:00 O2 Del Method Room Air 02/14/23 12:00 O2 Flow Rate 1 02/14/23 03:27 BMI result Body Mass Index 35.1 Const General: cooperative, comfortable, alert, awake and in distress mild and respiratory Nutritional Appearance: obese Orientation/consciousness: patient oriented x3 Neck Neck: Yes trachea midline, Yes supple and Yes JVD Resp Effort & Inspection: normal respiratory effort Auscultation: diminished lung sounds Cardio Jugular venous distension: JVD Rhythm: abnormal rhythm irregularly irregular Heart sounds: S1 normal heart sound present, S2 normal heart sound present, no click, no gallops, no murmurs and no rubs GI Auscultation: normal bowel sounds Neuro General: patient oriented x3 and no focal motor deficits Extrem General: No clubbing, No cyanosis and Yes edema Objective Labs and Meds 02/14/23 06:44 02/14/23 06:44 Lab results: Laboratory Results - last 24 hr 02/13/23 02/13/23 02/14/23 16:26 20:21 06:44 WBC 6.5 RBC 5.62 Hgb 12.4 L Hct 41.9 L MCV 74.6 L MCH 22.1 L MCHC 29.6 L RDW 17.6 H Plt Count 268 MPV 8.8 L Absolute Nucleated RBC 0.000 Nucleated RBC % (auto) 0.0 PT 28.8 H INR 2.4 H Sodium 143 Potassium 4.2 Chloride 103 Carbon Dioxide 30 H Anion Gap 14 BUN 14 Creatinine 0.71 Estim Creat Clear Calc 142.8 Estimated GFR > 60 POC Glucose 250 H 131 H Fasting Glucose 126 H Calcium 8.8 02/14/23 02/14/23 07:31 11:20 WBC RBC Hgb Hct MCV MCH MCHC RDW Plt Count MPV Absolute Nucleated RBC Nucleated RBC % (auto) PT INR Sodium Potassium Chloride Carbon Dioxide Anion Gap BUN Creatinine Estim Creat Clear Calc Estimated GFR POC Glucose 137 H 184 H Fasting Glucose Calcium Progress Note: A&P Assessment and plan (1) Acute CHF: Status: Acute Assessment and Plan: decompensated congestive heart failure, diastolic heart failure related to chronic atrial fibrillation. Patient diuresing well. Continue IV diuresis. Strict intake and output chart needs to be pursued. Continue adequate rate control approach. Add Jardiance 10 mg to regimen in addition to spironolactone 12.5 mg to his regimen for heart failure management. Trend BMP and BNP tomorrow. Management of heart failure were discussed in details. There is moderate left ventricular hypertrophy/ thickness will require further workup for infiltrative disorder can be done as an outpatient. (2) Atrial fibrillation: Status: Acute Assessment and Plan: Chronic persistent atrial fibrillation with [id number] left atrial enlargement. Although given length of atrial fibrillation unlikely to pursue rhythm control approach at this point time. Will continue rate control with digoxin 0.25 mg daily and increase metoprolol to 50 mg q.6 hours. Continue taper and discontinue Cardizem drip. Continue full oral anticoagulation although given his bleeding in the urinary tract this will need to be followed closely. Will follow with you Time Spent With Patient Time: Total time managing care of this patient today ____ minutes. Progress Note: Quality Stroke Does the patient have a stroke diagnosis?: No Procedures Date of Service Date of Service: 02/14/23
[2023-02-14 16:36] LABS: Glucose, Whole Blood 144 mg/dL (60-115)
[2023-02-14] MEDS: Warfarin Sodium 2.5 MG TABLET PO (17:50)
[2023-02-14] MEDS: dilTIAZem HCL 125 MG in 0.9 % Sodium Chloride 100 ML IVCONT (18:27)
[2023-02-14] MEDS: Atorvastatin Calcium 40 MG TABLET PO (20:46)
[2023-02-14 20:53] LABS: Glucose, Whole Blood 145 mg/dL (60-115)
[2023-02-15] MEDS: Acetaminophen 325 MG TABLET 650 MG PO (02:04)
[2023-02-15] MEDS: polyethylene glycoL 3350 17 GM POWD.PACK PO (02:37)
[2023-02-15 03:38] VITALS: BP 158/80; PULSE 88; RESP 22; TEMP 36.5; O2SAT 91
[2023-02-15 07:30] LABS: Hematocrit 41.9 % (42.0-52.0); Hemoglobin 12.6 g/dl (14.0-18.0); Mean Corpuscular HGB Conc 30.1 g/dl (31.0-36.0); Mean Corpuscular Hemoglobin 22.4 pg (27.0-33.0); Mean Corpuscular Volume 74.6 fL (80.0-98.0); Mean Platelet Volume 8.9 fL (9.4-12.4); Platelet Count 270 X10*3/uL (160-400); Red Blood Count 5.62 X10*6/uL (4.60-5.80); White Blood Count 6.3 X10*3/uL (4.8-10.8)
[2023-02-15 07:35] LABS: Anion Gap 15 (12-20); Blood Urea Nitrogen 16 mg/dL (9-16); Calcium 8.9 mg/dL (8.4-10.2); Carbon Dioxide 26 mmol/L (22-29); Chloride 103 mmol/L (96-108); Creatinine Clr Calc Pharmacy 144.9; Estimated Glomerular Filt Rate > 60; Glucose Fasting 134 mg/dL (60-99); Potassium 3.6 mmol/L (3.3-5.1); Sodium 140 mmol/L (135-145)
[2023-02-15 07:37] LABS: INTERNATIONAL NORM RATIO 1.9 (0.9-1.1); Prothrombin Time 23.4 SEC (11.1-13.3)
[2023-02-15 07:47] VITALS: BP 164/78; PULSE 95; RESP 18; TEMP 36.7; O2SAT 93
[2023-02-15 08:14] LABS: Glucose, Whole Blood 139 mg/dL (60-115)
[2023-02-15] MEDS: Furosemide 40 MG/4 ML VIAL IVPUSH (08:17)
[2023-02-15] MEDS: 0.9 % Sodium Chloride Flush 3 ML SYRINGE IVFLUSH (08:17)
[2023-02-15] MEDS: Clopidogrel Bisulfate 75 MG TABLET PO (08:17)
[2023-02-15] MEDS: Magnesium Oxide 400 MG TABLET PO (08:17)
[2023-02-15] MEDS: Metoprolol Tartrate 25 MG TABLET PO (08:17)
--- NOTE | 2023-02-15 08:46 | P.DS_ITS ---
DS: Providers Provider Date of Service: 02/15/23 Date of admission: 02/12/23 21:12 Primary care physician: Katie Gaytan MD Consults: 02/12/23 21:12 Consult to Cardiology Routine Consulting Provider: [facility] Reason for consultation: afib with rvr 02/13/23 15:16 Consult to Wound Care Routine Reason for consultation: Venous stasis ulcer Has provider been notified: Yes DS: Diagnosis Discharge Diagnosis (1) Acute CHF: Status: Acute (2) Atrial fibrillation: Status: Acute DS: Summary Hospital Course Hospital Course: from initial hpi: 72-year-old male with well-controlled insulin-dependent type 2 diabetes, GERD, coronary artery disease s/p PCI with SELENE in 11/2022, paroxysmal atrial fibrillation, history of bilateral lower extremity DVT anticoagulated with Coumadin, chronic venous stasis dermatitis with bilateral lower extremity edema presented to the ED earlier today at the recommendation of 1 of his providers due to hypo magnesiumemia and worsening lower extremity edema. Per the patient 1 week ago had a magnesium level of 0.9 and was prescribed 400 mg magnesium oxide twice daily which he took as prescribed but magnesium only improved to 1.0 and he was advised to present to the ED. he also states that since his coronary stent 2 months ago, has had worsening bilateral lower extremity edema with blisters and venous ulcer to the right ankle. He does follow with podiatry and wound care for this. He has also had dyspnea on exertion and orthopnea but states this is longstanding. Reports occasional nocturnal palpitations. No lightheadedness or chest pains. Denies any purulent drainage from the chronic wound of the right ankle. No fevers or chills. He is here today with his significant other, Mary Alice, who assists with his care and wound management. On arrival, patient tachycardic to 130 and tachypneic to 24. No hypotension or hypoxia. There is minimal improvement in heart rate with 10 mg IV diltiazem and patient was placed on Cardizem drip with improvement in heart rate. Hematology studies significant for mild microcytic anemia. INR therapeutic at 2.7. Renal function and electrolyte levels normal except for magnesium of 0.8 on arrival. He received 2 g IV magnesium in the ED with slight improvement to 1.2. Additional 2 g IV magnesium ordered. Troponin undetectable. BNP 206. Albumin 3.3. Chest x-ray negative for any acute disease but shows chronic scarring/atelectasis. No pleural effusions or edema noted. EKG on arrival showed AFib with RVR and PVCs, rate [address]/T-wave abnormality. hospital course: Patient was admitted for paroxysmal atrial fibrillation with rapid ventricular response. He was treated with Cardizem drip, increased metoprolol, digoxin. Heart rate became better controlled. He will be discharged on Lopressor 50 mg b.i.d. and digoxin 0.25 daily. Echocardiogram showed diastolic dysfunction with good EF. He was continued on Coumadin. For acute hypo magnesemia he was given supplement and magnesium returned to normal. His PPI is been discontinued and he will continue on supplement. For acute on chronic diastolic CHF he was given IV Lasix and will be discharged on 20 mg daily. For diabetes was continue on insulin. For coronary disease was continue on Plavix and Coumadin. For obesity weight loss is recommended. Patient is feeling better will be discharged home. Time Spent with Patient Time attestation: Total time managing care of this patient today ____ minutes. Discharge coordination time: Greater than 30 minutes Quality: Safe Use of Opioids Does Pt have an Active Cancer Diagnosis on the Problem List?: No Quality: Stroke Does the patient have a stroke diagnosis?: No Physical Exam Vital Signs: Vital Signs: Last Vital Signs Temp 98.0 F 02/15/23 07:47 Pulse 95 02/15/23 07:47 Resp 18 02/15/23 07:47 BP 164/78 H 02/15/23 07:47 Pulse Ox 93 02/15/23 07:47 O2 Del Method Room Air 02/15/23 07:47 O2 Flow Rate 1 02/14/23 03:27 BMI result Body Mass Index 35.1 Const: General: cooperative, comfortable, alert, awake and in distress mild and respiratory Nutritional Appearance: obese Orientation/consciousness: patient oriented x3 Neck: Neck: Yes trachea midline, Yes supple and Yes JVD Resp: Effort & Inspection: normal respiratory effort Auscultation: diminished lung sounds Cardio: Jugular venous distension: JVD Rhythm: abnormal rhythm irregularly irregular Heart sounds: S1 normal heart sound present, S2 normal heart sound present, no click, no gallops, no murmurs and no rubs GI: Auscultation: normal bowel sounds Neuro: General: patient oriented x3 and no focal motor deficits Extrem: General: No clubbing, No cyanosis and Yes edema DS: Data Data Completed and Pending Labs on day of discharge: Laboratory Results - last 24 hr 02/14/23 02/14/23 02/14/23 11:20 16:25 20:14 WBC RBC Hgb Hct MCV MCH MCHC RDW Plt Count MPV Absolute Nucleated RBC Nucleated RBC % (auto) PT INR Sodium Potassium Chloride Carbon Dioxide Anion Gap BUN Creatinine Estim Creat Clear Calc Estimated GFR POC Glucose 184 H 144 H 145 H Fasting Glucose Calcium 02/15/23 02/15/23 06:46 07:46 WBC 6.3 RBC 5.62 Hgb 12.6 L Hct 41.9 L MCV 74.6 L MCH 22.4 L MCHC 30.1 L RDW 18.0 H Plt Count 270 MPV 8.9 L Absolute Nucleated RBC 0.000 Nucleated RBC % (auto) 0.0 PT 23.4 H INR 1.9 H Sodium 140 Potassium 3.6 Chloride 103 Carbon Dioxide 26 Anion Gap 15 BUN 16 Creatinine 0.70 Estim Creat Clear Calc 144.9 Estimated GFR > 60 POC Glucose 139 H Fasting Glucose 134 H Calcium 8.9 Discharge Plan Discharge Anticipated Discharge Date/Time: 02/15/23 08:41 Patient Disposition: Home, Self-Care Discharge Diagnosis: chf, afib Referrals: Katie Gaytan MD [Primary Care Provider] - 1 Week Discharge Medications: New magnesium oxide 400 mg (241.3 mg magnesium) Tablet 400 mg PO BIDPC Qty: 60 0RF furosemide 20 mg tablet 20 mg PO DAILY Qty: 30 0RF digoxin 250 mcg (0.25 mg) tablet 250 mcg PO DAILY Qty: 30 0RF metoprolol tartrate 75 mg tablet 75 mg PO BID Qty: 60 0RF Continued silver sulfadiazine 1 % cream 1 appl topical DAILY PRN (Reason: Wound Care) ammonium lactate 12 % cream 1 appl topical DAILY PRN (Reason: Wound Care) (DME) V-GO 20 Device MISCELLANEOUS warfarin 5 mg tablet 5 mg PO SUTUTH@1800 clopidogrel 75 mg tablet 75 mg PO DAILY (DME) FreeStyle Pat 2 Freeborn Misc See Rx Instructions .ROUTE .MEDSUPPLY Qty: 1 Rx Instructions: As directed (DME) FreeStyle Pat 2 Sensor Kit See Rx Instructions .ROUTE .MEDSUPPLY Qty: 1 Rx Instructions: As directed atorvastatin 40 mg tablet 40 mg PO BEDTIME metformin 1,000 mg tablet 1,000 mg PO BID@1200,2100 lisinopril 40 mg tablet 40 mg PO DAILY@1200 insulin lispro [Humalog U-100 Insulin] 100 unit/mL solution See Rx Instructions .ROUTE .COMPLEX Rx Instructions: insulin pump folic acid 1 mg tablet 1 mg PO DAILY@1200 warfarin 5 mg tablet 2.5 mg PO MOWEFRSA@1800 Trulicity 1.5 mg/0.5 mL pen injector 1.5 mg subcut TH Discontinued metoprolol succinate 25 mg tablet extended release 24 hr 25 mg PO DAILY@1200 omeprazole 20 mg capsule,delayed release(DR/EC) 20 mg PO DAILY metoprolol succinate 50 mg capsule,sprinkle,ER 24hr 50 mg PO DAILY@1200 Discharge Orders: Discharge Order (Routine); Ordered 02/15/23 Ordered By: Jay Napoles Diet: Advance to usual diet Activity on Discharge: As tolerated Stand Alone Forms: Patient Portal Discharge page Care Plan Goals: recovery Health Concerns: afib, chf, hypomag Plan of Treatment: mag supplement, stop ppi, change metoprolol to tartate 75mg bid, start lasix Assessment: see above
--- NOTE | 2023-02-15 09:49 | PM.PNCARD ---
Subjective Subjective Date of Service: 02/15/23 Principal diagnosis: CHF, atrial fibrillation. Interval history: Patient doing better. Overall negative balance of 3 L. clinically feeling better. Rate is better controlled. Review of Systems Constitutional: Reports no additional constitutional complaints Physical Exam Vital Signs: Last Vital Signs Temp 98.0 F 02/15/23 07:47 Pulse 95 02/15/23 07:47 Resp 18 02/15/23 07:47 BP 164/78 H 02/15/23 07:47 Pulse Ox 93 02/15/23 07:47 O2 Del Method Room Air 02/15/23 07:47 O2 Flow Rate 1 02/14/23 03:27 BMI result Body Mass Index 35.1 Const General: cooperative, comfortable, alert, awake and in distress mild and respiratory Nutritional Appearance: obese Orientation/consciousness: patient oriented x3 Neck Neck: Yes trachea midline, Yes supple and Yes JVD Resp Effort & Inspection: normal respiratory effort Auscultation: diminished lung sounds Cardio Jugular venous distension: JVD Rhythm: abnormal rhythm irregularly irregular Heart sounds: S1 normal heart sound present, S2 normal heart sound present, no click, no gallops, no murmurs and no rubs GI Auscultation: normal bowel sounds Neuro General: patient oriented x3 and no focal motor deficits Extrem General: No clubbing, No cyanosis and Yes edema Objective Labs and Meds 02/15/23 06:46 02/15/23 06:46 Lab results: Laboratory Results - last 24 hr 02/14/23 02/14/23 02/14/23 11:20 16:25 20:14 WBC RBC Hgb Hct MCV MCH MCHC RDW Plt Count MPV Absolute Nucleated RBC Nucleated RBC % (auto) PT INR Sodium Potassium Chloride Carbon Dioxide Anion Gap BUN Creatinine Estim Creat Clear Calc Estimated GFR POC Glucose 184 H 144 H 145 H Fasting Glucose Calcium 02/15/23 02/15/23 06:46 07:46 WBC 6.3 RBC 5.62 Hgb 12.6 L Hct 41.9 L MCV 74.6 L MCH 22.4 L MCHC 30.1 L RDW 18.0 H Plt Count 270 MPV 8.9 L Absolute Nucleated RBC 0.000 Nucleated RBC % (auto) 0.0 PT 23.4 H INR 1.9 H Sodium 140 Potassium 3.6 Chloride 103 Carbon Dioxide 26 Anion Gap 15 BUN 16 Creatinine 0.70 Estim Creat Clear Calc 144.9 Estimated GFR > 60 POC Glucose 139 H Fasting Glucose 134 H Calcium 8.9 Progress Note: A&P Assessment and plan (1) Acute CHF: Status: Acute Assessment and Plan: Patient decompensated congestive heart failure related most likely persistent atrial fibrillation. Clinically doing better. Switch to p.o. Lasix 40 mg daily. Heart failure education to be provided. Discuss with patient about management of heart failure. Continue rate control. Question rhythm control as outpatient. Patient will pursue his own help desk support specialist. Continue aggressive blood pressure control. Consider addition of spironolactone to his regimen both for heart failure as well as blood pressure control and electrolyte management. Replace with magnesium potassium as outpatient. Follow-up with his help desk support specialist in 1 weeks time. (2) Atrial fibrillation: Status: Acute Assessment and Plan: Atrial fibrillation, exact duration of long-standing atrial fibrillation is unknown. Patient thinks is been present for few years. Continue rate control for now with metoprolol 75 mg b.i.d. and digoxin 0.25 mg daily. Follow-up H level in 1 weeks time. Currently on full oral anticoagulation warfarin being followed by [facility]. Maintain target INR between 2 and 3. His left atrium is not significant enlarged and consideration can be made for possible rhythm control approach although require antiarrhythmic drug support. Should discuss with his own help desk support specialist. Patient can be discharged home today. Time Spent With Patient Time: Total time managing care of this patient today ____ minutes. Progress Note: Quality Stroke Does the patient have a stroke diagnosis?: No Procedures Date of Service Date of Service: 02/15/23
--- NOTE | 2023-02-15 10:16 | MHC.CM.PN ---
IMM 02/14/23 Patient is discharged to home today. His is competent to perform wound care. She will provide transportation home.
== END 2023-02-15 12:06 | disposition home or self-care (01) | DRG 308 ==
LOC: HO.ED 17:19 → HO.EDOVER 21:17 → HO.IMC 02-13 11:33
PROVIDERS: Physician Assistant; Admitting Provider Student in an Organized Health Care Education/Training Program; Emergency Provider Emergency Medicine; PCP Internal Medicine; Visit Provider Internal Medicine
DX: I48.0 Paroxysmal atrial fibrillation (principal); I50.23 Acute on chronic systolic (congestive) heart failure; I87.331 Chronic venous hypertension (idiopathic) with ulcer and inflammation of right lower extremity; L97.319 Non-pressure chronic ulcer of right ankle with unspecified severity; E83.42 Hypomagnesemia; I25.10 Atherosclerotic heart disease of native coronary artery without angina pectoris; E11.65 Type 2 diabetes mellitus with hyperglycemia; E66.01 Morbid (severe) obesity due to excess calories; Z68.35 Body mass index [BMI] 35.0-35.9, adult; Z95.5 Presence of coronary angioplasty implant and graft; Z86.718 Personal history of other venous thrombosis and embolism; Z79.01 Long term (current) use of anticoagulants; Z79.02 Long term (current) use of antithrombotics/antiplatelets; Z79.4 Long term (current) use of insulin; Z79.84 Long term (current) use of oral hypoglycemic drugs; Z79.899 Other long term (current) drug therapy
CPT/HCPCS: 36415; 71045; 80048; 80053; 82728; 82947; 83540; 83735; 83880; 84484; 85025; 85027; 85610; 93005; 93306; 99285; J1160; J1940; J3475; Q9957

== ENCOUNTER 2023-02-12 21:12 | Outpatient (BNV) | payer MEDICARE, SELFPAY | END 2023-02-14 07:00 | PROVIDERS: Admitting Provider Student in an Organized Health Care Education/Training Program; Emergency Provider Emergency Medicine; PCP Internal Medicine; Visit Provider Internal Medicine Cardiovascular Disease | DX: I48.91 Unspecified atrial fibrillation (principal) | CPT/HCPCS: 93306 ==

== ENCOUNTER → 2023-02-12 21:12 | Outpatient (BNV) | payer MEDICARE, SELFPAY | PROVIDERS: Admitting Provider Student in an Organized Health Care Education/Training Program; Emergency Provider Emergency Medicine; PCP Internal Medicine; Visit Provider Physician Assistant | DX: I50.9 Heart failure, unspecified (principal); I48.91 Unspecified atrial fibrillation | CPT/HCPCS: 99223; 99233; 99239 ==

== ENCOUNTER → 2023-02-12 21:12 | Outpatient (BNV) | payer MEDICARE, SELFPAY | PROVIDERS: Admitting Provider Student in an Organized Health Care Education/Training Program; Emergency Provider Emergency Medicine; PCP Internal Medicine; Visit Provider Internal Medicine Cardiovascular Disease | DX: I50.9 Heart failure, unspecified (principal); I48.91 Unspecified atrial fibrillation | CPT/HCPCS: 99222; 99233 ==

== ENCOUNTER 2023-02-18 19:03 | Emergency (ER) | payer MEDICARE, SELFPAY ==
[2023-02-18 19:05] VITALS: BP 100/70; PULSE 98; RESP 16; TEMP 36.2; O2SAT 95; BMI 33.3
--- NOTE | 2023-02-18 19:06 | ED_ITS ---
HPI - General Adult General Chief complaint: Urogenital-Male Stated complaint: Unable to void/ d/c on 02/15 Time Seen by Provider: 02/18/23 19:36 Source: patient and family () Mode of arrival: ambulatory History of Present Illness HPI narrative: 72-year-old male who was recently discharged from this hospital on Friday and returns with worsening suprapubic discomfort in the inability to urinate and patient is currently on diuretics. Related Data Home Medications Medication Instructions Recorded Confirmed atorvastatin 40 mg tablet 40 mg PO BEDTIME 09/03/22 02/18/23 lisinopril 40 mg tablet 40 mg PO DAILY@1200 09/03/22 02/18/23 metformin 1,000 mg tablet 1,000 mg PO BID@1200,2100 09/03/22 02/18/23 dulaglutide 1.5 mg/0.5 mL 1.5 mg subcut TH 09/04/22 02/18/23 subcutaneous pen injector (Trulicity) folic acid 1 mg tablet 1 mg PO DAILY@1200 09/04/22 02/18/23 insulin lispro 100 unit/mL See Rx Instructions .Route .COMPLEX 09/04/22 02/18/23 subcutaneous solution (Humalog U-100 Insulin) warfarin 5 mg tablet 2.5 mg PO MOWEFRSA@1800 09/04/22 02/18/23 clopidogrel 75 mg tablet 75 mg PO DAILY 01/06/23 02/18/23 flash glucose scanning reader #1 ea 01/06/23 (FreeStyle Pat 2 [place]) flash glucose sensor (FreeStyle #1 ea 01/06/23 Pat 2 Sensor kit) ammonium lactate 12 % topical cream 1 appl topical DAILY PRN Wound Care 02/12/23 02/18/23 silver sulfadiazine 1 % topical 1 appl topical DAILY PRN Wound Care 02/12/23 02/18/23 cream sub-q insulin device, 20 unit 02/12/23 02/12/23 (V-GO 20 device) warfarin 5 mg tablet 5 mg PO SUTUTH@1800 02/12/23 02/18/23 Previous Rx's Medication Instructions Recorded digoxin 250 mcg (0.25 mg) tablet 250 mcg PO DAILY #30 tabs 02/15/23 furosemide 20 mg tablet 20 mg PO DAILY #30 tabs 02/15/23 magnesium oxide 400 mg (241.3 mg 400 mg PO BIDPC #60 tabs 02/15/23 magnesium) tablet metoprolol tartrate 75 mg tablet 75 mg PO BID #60 tabs 02/15/23 Allergies Allergy/AdvReac Type Severity Reaction Status Date / Time peanut [PEANUTS] Allergy Unknown UNK Verified 02/12/23 13:39 wool [WOOL] Allergy Unknown UNK Verified 02/12/23 13:39 peanuts Allergy Unknown hives Uncoded 02/12/23 13:39 Review of Systems 2 Review of Systems: Pertinent positives and negatives as stated in [facility] Past Medical History Source: nursing notes reviewed Family History Family History Father Kidney cancer, primary, with metastasis from kidney to other site Heart disease Social History Social History Household Members: Significant Other Housing: House Alcohol intake: never Patient Tobacco Use Status: Never used Tobacco Smoked in Last 30 Days: No Second Hand Smoke Exposure: No Use of substances other than those prescribed or required for medical reasons: No Advance Directives: Yes Advance Directives on File: Yes Advance Directives Date on File: 02/13/23 service: No Physical Exam ED Vital Signs: Vital Signs - 24 hr 02/18/23 19:05 02/18/23 19:46 Temperature 97.1 F 97.5 F Pulse Rate 98 96 Respiratory Rate 16 16 Blood Pressure 100/70 131/74 Pulse Oximetry 95 94 Oxygen Delivery Method Room Air Room Air BMI result Body Mass Index 33.3 VITAL SIGNS: Reviewed. GENERAL: Well developed, well nourished, in no acute distress. HEAD: Normocephalic/atraumatic EYES: PERRLA, EOMI EARS: Ext canals without abnormality NOSE: Nares patent bilateral OROPHARYNX: no oral lesions noted, posterior pharynx clear NECK: Supple, no adenopathy LUNGS: Normal breath sounds. No adventitious sounds or accessory muscle use. SpO2<94> CARDIOVASCULAR: Regular rate and rhythm without noted murmurs, no JVD but lower extremity edema. ABDOMEN: Soft, lower abdominal discomfort with firmness noted, non-distended with bowel sounds. MUSCULOSKELETAL: No tenderness, deformities, or effusions noted on gross inspection. EXTREMITIES: No cyanosis, clubbing or edema. SKIN: Inspection of the skin reveals no rashes NEUROLOGIC: Alert and oriented x 4. Strength and sensation to light touch were grossly intact x 4. Course Course Course Narrative: RME: 72-year-old male with diabetes, GERD, CAD s/p PCI with SELENE in 11/2022, atrial fibrillation, history of bilateral lower extremity DVT anticoagulated with Coumadin, chronic venous stasis dermatitis, anasarca, recently d/c'd from our facility on 02/15/23 for Acute CHF presenting to the ED today c/o inability to urinate since 2AM on Friday morning. Admits is leaking, and able to express some urine when pushes on abdomen. Reports mild abdominal discomfort, denies pain at present. Labs, UA, bladder scan ordered Full HPI, ROS and PE to be performed by primary ED provider. Medications Administered Discontinued Medications Generic Name Dose Route Start Last Admin Trade Name Freq PRN Reason Stop Dose Admin Lidocaine HCl 10 ml 02/18/23 20:39 02/18/23 20:52 Lidocaine Hcl 2 % Urojet 10 Ml Jel.Pf.Joaquina TOPICAL 02/18/23 20:40 10 ml ONCE ONE Administration Medical Decision Making Medical Decision Making [facility] Narrative: 72-year-old male with history and clinical presentation of recent addition of new medications and changes in medications as well as having had a [place] Julio catheter in place during his recent admission. Suspect acute urinary retention secondary to medications/urinary tract infection/underlying BPH. Bladder scan significant for volume of 1200 cc. Julio catheter was successfully placed with good return of urine that on review of urinalysis does not show any evidence of urinary tract infection or hematuria. I reviewed all other investigations and hematologic indices are negative for leukocytosis or left shift, there is a stable/chronic microcytic anemia and no thrombocytopenia. Chemistry indices significant for mildly elevated sodium chloride may be reflective of patient's recent admission, he is on Lasix this will likely resolve. Potassium is within normal limits there is no demonstrated [place], liver enzymes are within normal limits. Patient is otherwise discharged home with a diagnosis of acute urinary retention likely secondary to BPH. You will be provided with a referral to follow-up with urology. Differential Diagnosis Differential Diagnoses: The differential diagnosis associated with the presentation includes Please see the discussion above Admission/Observation Consideration of admission/observation: Escalation of care including admission/observation considered Please see the discussion above Lab Data [facility] Lab Attestation statement: I reviewed the patient's lab results. Please see the discussion above 02/18/23 19:57 02/18/23 19:57 Labs: Lab Results 02/18/23 02/18/23 Range/Units 19:57 21:09 WBC 6.8 (4.8-10.8) X10*3/uL RBC 5.48 (4.60-5.80) X10*6/uL Hgb 12.1 L (14.0-18.0) g/dl Hct 41.7 L (42.0-52.0) % MCV 76.1 L (80.0-98.0) fL MCH 22.1 L (27.0-33.0) pg MCHC 29.0 L (31.0-36.0) g/dl RDW 17.4 H (11.0-16.0) % Plt Count 309 (160-400) X10*3/uL MPV 8.6 L (9.4-12.4) fL Immature Gran % (Auto) 0.1 (0.0-0.4) % Neut % (Auto) 68.1 (45-73) % Lymph % (Auto) 14.5 L (20-40) % Norman % (Auto) 12.8 H (2-11) % Eos % (Auto) 3.8 (0-4) % Baso % (Auto) 0.7 (0-2) % Lymph # (Auto) 1.0 L (1.2-4.9) X10*3/uL Norman # (Auto) 0.9 (0.1-1.2) X10*3/uL Eos # (Auto) 0.3 (0.0-0.4) X10*3/uL Baso # (Auto) 0.1 (0.0-0.2) X10*3/uL Abs Immat Gran (auto) 0.01 (0.00-0.03) X10*3/uL Absolute Neuts (auto) 4.6 (2.0-8.3) x10*3/uL Absolute Nucleated RBC 0.000 (0.0-0.012) X10*3/uL Nucleated RBC % (auto) 0.0 (0.0-0.2) /100WBC Sodium 146 H (135-145) mmol/L Potassium 4.7 D (3.3-5.1) mmol/L Chloride 109 H (96-108) mmol/L Carbon Dioxide 27 (22-29) mmol/L Anion Gap 15 (12-20) BUN 22 H (9-16) mg/dL Creatinine 0.90 (0.5-1.4) mg/dL Estim Creat Clear Calc 109.9 Estimated GFR > 60 Random Glucose 89 (60-115) mg/dL Calcium 9.2 (8.4-10.2) mg/dL Total Bilirubin 0.8 (0.0-1.0) mg/dL Direct Bilirubin 0.3 (0.0-0.5) mg/dL AST 17 (5-37) U/L ALT 10 (0-40) U/L Alkaline Phosphatase 80 (39-117) U/L Total Protein 7.1 (6.5-8.0) g/dL Albumin 3.2 L (3.5-5.0) g/dL Lipase 53 (8-78) U/L Urine Color Dark Yellow Urine Appearance Clear Urine pH 5.5 (5.0-9.0) Ur Specific [place] 1.015 (1.005-1.025) Urine Protein Negative (Neg-Trace) mg/dL Urine Glucose (UA) Negative (Negative) mg/dL Urine Ketones Negative (Negative) mg/dL Urine Blood Negative (Negative) Urine Nitrite Negative (Negative) Ur Leukocyte Esterase Negative (Negative) External Record Review External record reviewed: Outpatient record and Prior outpatient labs Chronic Conditions Patient?s care impacted by: Diabetes, Hypertension and Other Atrial fibrillation on chronic anticoagulation. Critical Care Time Critical Care Time Critical Care Time: Yes Total Critical Care Time: 30 Attestation: I personally attest to this time spent taking care of the patient. Discharge Plan Discharge Clinical Impression: Acute urinary retention, Difficult Julio catheter placement Patient Disposition: Home, Self-Care Instructions: Urinary Retention in Men (ED), Julio Catheter Placement and Care (ED) Additional Instructions: 1. Resume all home medications as prescribed. 2. You have been provided with a referral to Urology, the contact information is located below, please call the office tomorrow morning. Return to the ER for any worsening of symptoms. Prescriptions: No Action silver sulfadiazine 1 % cream 1 appl topical DAILY PRN (Reason: Wound Care) ammonium lactate 12 % cream 1 appl topical DAILY PRN (Reason: Wound Care) (DME) V-GO 20 Device MISCELLANEOUS warfarin 5 mg tablet 5 mg PO SUTUTH@1800 magnesium oxide 400 mg (241.3 mg magnesium) Tablet 400 mg PO BIDPC Qty: 60 0RF furosemide 20 mg tablet 20 mg PO DAILY Qty: 30 0RF digoxin 250 mcg (0.25 mg) tablet 250 mcg PO DAILY Qty: 30 0RF metoprolol tartrate 75 mg tablet 75 mg PO BID Qty: 60 0RF clopidogrel 75 mg tablet 75 mg PO DAILY (DME) FreeStyle Pat 2 [place] Misc See Rx Instructions .ROUTE .MEDSUPPLY Qty: 1 Rx Instructions: As directed (DME) FreeStyle Pat 2 Sensor Kit See Rx Instructions .ROUTE .MEDSUPPLY Qty: 1 Rx Instructions: As directed atorvastatin 40 mg tablet 40 mg PO BEDTIME metformin 1,000 mg tablet 1,000 mg PO BID@1200,2100 lisinopril 40 mg tablet 40 mg PO DAILY@1200 insulin lispro [Humalog U-100 Insulin] 100 unit/mL solution See Rx Instructions .ROUTE .COMPLEX Rx Instructions: insulin pump folic acid 1 mg tablet 1 mg PO DAILY@1200 warfarin 5 mg tablet 2.5 mg PO MOWEFRSA@1800 Trulicity 1.5 mg/0.5 mL pen injector 1.5 mg subcut TH Referrals: Katie Gaytan MD [Primary Care Provider] - Sajan Barrett MD [Physician] -
[2023-02-18 19:46] VITALS: BP 131/74; PULSE 96; RESP 16; TEMP 36.4; O2SAT 94
--- NOTE | 2023-02-18 19:49 | MHC.EDTECH ---
This tech brought patient in from waiting area,bladder scan was obtained and result is 1207, ux specialist was first made aware and patient was brought right to room 20 in the ED. This tech then made aware of result. Tis tech was unable to obtain blood work in triage due to pt being brought right back and PCT Andraea and MARY Bah made aware.
--- NOTE | 2023-02-18 19:52 | MHC.EDTECH ---
This pct just assumed care of patient ,vitals taken ,pt was change into hospital gown .
--- NOTE | 2023-02-18 19:58 | MHC.EDTECH ---
Patient blood drawn and sent to lab .
[2023-02-18 20:01] LABS: MANUAL DIFF FLAG NO
[2023-02-18 20:07] LABS: Basophils Absolute Auto 0.1 X10*3/uL (0.0-0.2); Basophils Percent Auto 0.7 % (0-2); Eosinophils Absolute Auto 0.3 X10*3/uL (0.0-0.4); Eosinophils Percent Auto 3.8 % (0-4); Hematocrit 41.7 % (42.0-52.0); Hemoglobin 12.1 g/dl (14.0-18.0); Imm Gran Abs Auto 0.01 X10*3/uL (0.00-0.03); Imm Gran Pct Auto 0.1 % (0.0-0.4); Lymphocytes Percent Auto 14.5 % (20-40); Mean Corpuscular Hemoglobin 22.1 pg (27.0-33.0); Mean Corpuscular Volume 76.1 fL (80.0-98.0); Mean Platelet Volume 8.6 fL (9.4-12.4); Monocytes Absolute Auto 0.9 X10*3/uL (0.1-1.2); Monocytes Percent Auto 12.8 % (2-11); Neutrophils Absolute Auto 4.6 x10*3/uL (2.0-8.3); Neutrophils Percent Auto 68.1 % (45-73); Platelet Count 309 X10*3/uL (160-400); Red Blood Count 5.48 X10*6/uL (4.60-5.80); Red Cell Distribution Width 17.4 % (11.0-16.0); White Blood Count 6.8 X10*3/uL (4.8-10.8)
--- NOTE | 2023-02-18 20:16 | PHA.MEDREC ---
Pharmacy Consult ? Medication Reconciliation Pharmacy has completed the medication reconciliation. [facility] Luz Olivarez, ParmjitD
[2023-02-18 20:17] LABS: Alanine Aminotransferase 10 U/L (0-40); Albumin Level 3.2 g/dL (3.5-5.0); Alkaline Phosphatase 80 U/L (39-117); Anion Gap 15 (12-20); Aspartate Amino Transferase 17 U/L (5-37); Bilirubin Direct 0.3 mg/dL (0.0-0.5); Bilirubin Total 0.8 mg/dL (0.0-1.0); Blood Urea Nitrogen 22 mg/dL (9-16); Calcium 9.2 mg/dL (8.4-10.2); Carbon Dioxide 27 mmol/L (22-29); Chloride 109 mmol/L (96-108); Creatinine Clr Calc Pharmacy 109.9; Estimated Glomerular Filt Rate > 60; Glucose Random 89 mg/dL (60-115); Lipase 53 U/L (8-78); Potassium 4.7 mmol/L (3.3-5.1); Sodium 146 mmol/L (135-145); Total Protein 7.1 g/dL (6.5-8.0)
[2023-02-18] MEDS: Lidocaine HCl 2 % Urojet 10 ML JEL.PF.APP TOPICAL (20:52)
--- NOTE | 2023-02-18 21:13 | PC.NURSE ---
Pt presents to ED with complaints of trouble controlling when he urinates. Pt stated that he has been having trouble getting urine oyut, unless he pushes on his bladder. Pt is A&Ox4m, GCS 15, with warm, dry skin. Denies pain, nausea/vomiting/diarrhea, shows no signs of distress at this time. I inserted a 20fr coude catheter for the pt. Pt denies pain. Initial output approx 1,000ml of dark yellow, odorous urine. Per Dr See, I paused the draining and will resume after a brief break. Pt tolerated insertion well and is comfortable at this time. I educated pt and spouse on the process of catheter insertion and what to expect if he is sent home with a leg bag.
[2023-02-18 21:22] LABS: Appearance Urine Clear; Color Urine Dark Yellow; Glucose Urine UA Negative (Negative); Leukocyte Esterase Urine Negative (Negative); Nitrite Urine Negative (Negative); PH 5.5 (5.0-9.0); Specific Gravity - Urine 1.015 (1.005-1.025); Urine Blood Negative (Negative); Urine Ketones Negative (Negative); Urine Protein Negative (Neg-Trace)
[2023-02-18 22:35] VITALS: BP 134/78; PULSE 94; RESP 16; TEMP 36.8; O2SAT 97
--- NOTE | 2023-02-18 23:19 | PC.NURSE ---
Pt given a leg bag and educated on how to empty the bag as well as switch bag to a larger one for overnight. Pt verbalized understanding.
== END 2023-02-18 23:20 | disposition home or self-care (01) ==
PROVIDERS: Physician Assistant; Emergency Provider Student in an Organized Health Care Education/Training Program; PCP Internal Medicine
DX: R33.9 Retention of urine, unspecified (principal); E11.9 Type 2 diabetes mellitus without complications; I48.91 Unspecified atrial fibrillation; I11.0 Hypertensive heart disease with heart failure; I50.9 Heart failure, unspecified; Z86.718 Personal history of other venous thrombosis and embolism; Z79.899 Other long term (current) drug therapy; Z79.4 Long term (current) use of insulin; Z79.01 Long term (current) use of anticoagulants
CPT/HCPCS: 36415; 51702; 51798; 80048; 80076; 81003; 83690; 85025; 99284; 99285

== ENCOUNTER 2023-03-21 09:46 | Outpatient (AMB) | payer MEDICARE, SELFPAY ==
--- NOTE | 2023-03-21 09:59 | A.OFFVIS_ITS ---
Intake Intake Visit Reasons: voiding trial Intake Note: New Patient presents for initial visit for voiding trial Urology Medications: none Blood Thinner: clopidogrel, warfarin PVR: 17ml;s Counter Caser Required: No Accompanied by: Self / Same As Patient Allergies peanut [PEANUTS] Allergy (Unknown, Verified 03/22/23 09:49) UNK wool [WOOL] Allergy (Unknown, Verified 03/22/23 09:49) UNK peanuts Allergy (Unknown, Uncoded 03/22/23 09:49) hives Medication List - Last Reconciled 03/22/23 by ANA Pearce- ammonium lactate 12% 1 appl topical DAILY PRN atorvastatin 40 mg PO BEDTIME clopidogrel 75 mg PO DAILY digoxin 250 mcg PO DAILY dulaglutide (Trulicity) 1.5 mg subcut TH finasteride 5 mg PO DAILY 90 days flash glucose scanning reader ([employer]Style Pat 2 [place]) As directed flash glucose sensor (FreeStyle Pat 2 Sensor kit) As directed folic acid 1 mg PO DAILY@1200 furosemide 20 mg PO DAILY insulin lispro (Humalog U-100 Insulin) insulin pump lisinopril 40 mg PO DAILY@1200 magnesium oxide 400 mg PO BIDPC metformin 1,000 mg PO BID@1200,2100 metoprolol tartrate 75 mg PO BID silver sulfadiazine 1% 1 appl topical DAILY PRN sub-q insulin device, 20 unit (V-GO 20 device) tamsulosin 0.4 mg PO BEDTIME 30 days warfarin 5 mg PO SUTUTH@1800 warfarin 2.5 mg PO MOWEFRSA@1800 HPI HPI Comments History of Present Illness Details Randy is a very pleasant 72-year-old male patient of Dr. Gaytan was accompanied by his significant other at today's office visit. He has a PMH of Diabetes, GERD, CAD s/p PCI with SELENE in 11/2022, atrial fibrillation, history of bilateral lower extremity DVT anticoagulated with Coumadin, chronic venous stasis dermatitis, and anasarca. He presents to the office today as a new patient for urinary retention. In discussion with the patient today reports having seeked emergency room care approximately 1 month ago for urinary retention. In review of patient's chart it appears english catheter was inserted here at [facility] for on 02/18 due to PVR of 1200 mL. When asked he reports he had been urinating without difficulty prior to this episode. He denies any previous issues with his urination. In office voiding trial performed and patient was able to successfully void independently. Discussed at length potential causes of urinary retention. Discussed obtaining a Retroperitoneal u ltrasound for further assessment evaluation as well as a PSA in 6 weeks given recent English catheter. Discussed possible near future in office cystoscopy today's evaluation. Discussed importance of drinking water regularly and calling office or seeking emergency room care if unable to void. Discussed importance of managing diabetes and correlation of uncontrolled diabetes on the bladder. [facility] Family History Father Kidney cancer, primary, with metastasis from kidney to other site Heart disease Social History Household Members: Significant Other Housing: House Alcohol intake: never Patient Tobacco Use Status: Never used Tobacco Second Hand Smoke Exposure: No Advance Directives Date on File: 02/13/23 service: No Review of Systems Const Reports as per HPI Eyes Reports no additional complaints ENT Reports no additional complaints Card Reports as per HPI Resp Reports no additional complaints GI Reports as per HPI Reports as per HPI Musc Reports as per HPI Skin/Breast Reports as per HPI Neuro Reports no additional complaints Psych Reports no additional complaints Endo Reports as per HPI Jordan/Lymph Reports as per HPI Aller/Immun Reports no additional complaints Physical Exam Const General: cooperative, comfortable, no acute distress, well developed, alert and awake Nutritional Appearance: overweight Orientation/consciousness: patient oriented x3 HEENT Head: Yes normal to inspection, Yes No palpable skull fracture present and Yes atraumatic Eyes General: appearance normal, both eyes and all related structures Neck Neck: Yes normal visual inspection Chest Chest palpation & inspection: normal inspection of the chest Resp Effort & Inspection: normal respiratory effort and able to speak in complete sentences Cardio Rate: regular rate GI Inspection: Yes Abdominal panniculus present General: Yes no CVA tenderness Back/Spine/Pelvis Back: no CVA tenderness Skin Other: Bilateral lower extremities with anasarca with blebs and leaking lymphedma. Skin appears discolored and dry. Neuro General: patient oriented x3 Psych Other: unkempt in appearance Mental Status: mental status grossly normal Speech and movement: Normal speech and movement present and Clear speech present Affect: normal affect Attitude: cooperative Thought process: Normal thought process present Thought content: Normal thought content present Insight: Fair insight present (Psych) Judgement: Fair judgement present (Psych) Office Procedures Bladder/Catheter Procedure Details: 120 mls sterile water instilled into bladder. 20 fr cath 30 ml balloon removed. MA to room to bladder scan. 59049-[id number] of Bladder Procedure code (CPT) selection complete Post Void Residual Post Residual Void Post Void Residual (PVR): 17 [id number]-Ueai Void Residual by ultrasound Assessment & Plan Assessment & Plan (1) Urinary retention: Code(s): R33.9 - Retention of urine, unspecified Plan In office voiding trail performed; patient able to successfully void independently Discussed at length potential causes of urinary retention. Start tamsulosin and finasteride as discussed and prescribed Will obtain retroperitoneal ultrasound for further assessment and evaluation. Will obtain PSA for further assessment evaluation however in 6 weeks given recent indwelling English catheter. Discussed and stressed the importance of managing diabetes for urinary symptoms as well as overall health and well-being. Discussed possible near future in office cystoscopy for further evaluation. Discussed and stressed the importance drinking regularly and seeking emergency room care and or calling office during office hours if unable to void. Follow up in 2 months with PVR, imaging, and labs to be completed prior; or sooner with any issues, concerns, or questions. Orders: Orders AMB Bladder/Catheter Procedure 03/21/23 R33.8 - Other retention of urine AMB Post Void Residual by ultrasound 03/21/23 Z13.9 - Encounter for screening, unspecified US retroperitoneal comp 03/21/23 R33.9 - Retention of urine, unspecified Prostate Specific Antigen 6 Weeks N40.0 - Benign prostatic hyperplasia without lower urinary tract symptoms Medications: New tamsulosin 0.4 mg PO BEDTIME 30 days 30 caps 1RF N40.1 - Benign prostatic hyperplasia with lower urinary tract symptoms, R35.1 - Nocturia finasteride 5 mg PO DAILY 90 days 90 tabs 0RF N32.0 - Bladder-neck obstruction Patient Instructions: The patient had an opportunity to ask questions regarding the treatment plan. All questions were answered. Physical exam, labs, and imaging were discussed and reviewed in detail. As well as risks, benefits, and discussion of treatment choices. No major barriers to understanding were identified. The patient expressed understanding and agreement with the above treatment plan. The patient was made aware they should contact our office by phone for worsening of their current condition, the appearance of new symptoms, or with any questions or concerns. Compliance is encouraged with any medications and follow up testing that is ordered. It is a privilege to be allowed the opportunity to participate in? your urological care.? Again, if you have any questions or concerns If you have any questions or concerns please do not hesitate to contact me. The office is [phone]. This note is constructed using voice recognition software. While every effort has been made to ensure accuracy cook apprentice errors may have been included. Yours sincerely, ANA Pearce-TIMO Coding Level of Care Code New Pt Level 4 (82958) Diagnoses Urinary retention R33.9 CPT Codes Bladder/Catheter Procedure - CPT: 60108-Ohbjvupvoo of Bladder ([id number]) Post Residual Void - PVR CPT Code: 04252-Gfaw Void Residual by ultrasound ([id number])
== END 2023-03-21 11:05 | disposition home or self-care (01) ==
PROVIDERS: PCP Internal Medicine; Visit Provider Nurse Practitioner Family
DX: R33.9 Retention of urine, unspecified (principal)
CPT/HCPCS: 51700; 99204

== ENCOUNTER → 2023-03-21 09:46 | Outpatient (BNVA) | payer MEDICARE, SELFPAY | PROVIDERS: PCP Internal Medicine; Visit Provider Nurse Practitioner Family | DX: R33.9 Retention of urine, unspecified (principal) | CPT/HCPCS: 51700; 51798; 99202 ==

== ENCOUNTER 2023-03-24 12:54 | Inpatient (IN) | payer MEDICARE, SELFPAY ==
--- NOTE | ~2023-03-24 | CT_ITS ---
EXAMINATION: CT CHEST, ABDOMEN AND PELVIS WITHOUT CONTRAST. CLINICAL INFORMATION: leukocytosis, hypotension. COMPARISON: 05/30/2017. TECHNIQUE: Multidetector volumetric imaging was performed from the thoracic inlet through the pubic symphysis without intravenous contrast. Sagittal and coronal reformatted images were obtained on the technologist workstation. This CT examination was performed using dose optimization techniques as appropriate, variously including the following: *Automated exposure control *Adjustment of mA and/or kV according to patient size (this includes techniques or standardized protocols for targeted exams where dose is matched to indication/reason for exam; i.e. extremities or head) *Use of iterative reconstruction technique DLP: 1608 mGy-cm FINDINGS: CHEST: Lungs: There is focal rounded atelectasis seen in the posterior right lower lobe with curvilinear appearance similar to the 2018 study. Linear subsegmental atelectasis or scarring at the left lung base also partially visualized on the prior 2018 study as well. No significant effusion or pneumothorax. Mediastinum: Extensive vascular calcification in the coronary vessels and to less extent visualized thoracic aorta. No bulky adenopathy Coronary Artery Calcification: Present Pericardium/Pleura: No significant effusion. No pleural mass or thickening. Chest Wall/Axilla: Unremarkable. ABDOMEN/PELVIS: Peritoneal Space:No significant free air or free fluid identified. Liver, Gallbladder, Biliary Tree: The non contrast liver is normal in size, shape, and attenuation. No focal hepatic lesion or biliary ductal dilatation is present. The gallbladder is completely contracted but grossly unremarkable with no evidence of radiopaque gallstones, gallbladder wall thickening, or obvious pericholecystic inflammatory changes. Pancreas: Unremarkable. Spleen: Unremarkable. Adrenal Glands: Unremarkable. Kidneys and Ureters: Left: There is mild left-sided fullness extending up to a 5 mm calcification at the left ureterovesical pelvic junction. There is an additional nonobstructing intrarenal calculi measuring approximately 2 mm in size in the left lower pole. Minimal perinephric stranding. Right: Asymmetrically increased right perinephric stranding. There is subtle lobulated contour and heterogeneity to the lower pole collecting system. This difficult to define further on this study. This could represent small cysts however difficult to define further on this study. On the 2018 CT scan there was some subtle hypodensities in the right lower pole as well suggesting this could represent tiny cysts as suggested on the 09/24/2017 ultrasound. Bladder: Small bubble of air is seen in the nondependent bladder lumen. This could be related to recent intervention however underlying infectious etiology could have a similar appearance and clinical correlation with urinalysis would be recommended. Gastrointestinal Tract: The sigmoid colon is very tortuous but I do not appreciate any obstructive changes. This is better delineated on the prior 2018 study. No obstructive changes seen. Normal-appearing appendix in the right midabdomen. No obstructive changes to the small bowel. Abdominal Wall: Fat-containing periumbilical hernia similar to the 2018 study Lymphovascular Structures: Vascular calcification within the aorta iliac system. Shotty peritoneal lymph nodes are noted. Pelvic Viscera: Prostate is enlarged and ill-defined. Again in this setting, prostatitis infectious etiology cannot be excluded and correlation with urinalysis recommended Osseus Structures: Degenerative changes in the spine and hips. There are scattered sclerotic foci within the ribs including probable sclerotic bone islands in the right lateral third and sixth ribs as well as the lateral left eighth rib CT/CT abdomen pelvis wo IV con IMPRESSION: 1. There is a 5 mm calcification at the left ureteropelvic junction with mild left-sided hydronephrosis and hydroureter. 2. There is asymmetric perinephric stranding on the right with subtle heterogeneity to the lower pole collecting system. This is difficult to define further on this noncontrast CT scan. This could represent adjacent small cysts but difficult to define further on this noncontrast study. Pyelonephritis cannot be entirely excluded but would be considered less likely when compared to the [address] scan 3. The prostate is enlarged and ill-defined and correlation with urinalysis recommended to exclude prostatitis. 4. Chronic appearing changes in the lungs as described above. 5. Tiny bubble of air in the bladder lumen. This could be related to recent intervention however underlying infectious etiology could have a similar appearance and clinical correlation with urinalysis would be recommended.
[2023-03-24 12:57] VITALS: BP 99/64; PULSE 64; RESP 14; TEMP 37; O2SAT 98; BMI 31.8
--- NOTE | 2023-03-24 12:57 | ED.GENADULT ---
HPI - General Adult General Chief complaint: Weakness Stated complaint: low bp Time Seen by Provider: 03/24/23 15:55 Source: patient Mode of arrival: EMS Limitations: no limitations History of Present Illness HPI narrative: 72 y/o M patient; PMH T2DM, GERD, CAD s/p PCI with SELENE in 11/2022, paroxysmal atrial fibrillation, hx bilateral lower extremity DVT on Coumadin, chronic venous stasis dermatitis, HFpEF; who presents from home with report of hypotension at PCP office. The patient was recently admitted to this hospital from 02/12 - 02/15/2023 for hypomagnesemia, atrial fibrillation with RVR. He was started on digoxin and increased dose of metoprolol. Out-patient he followed up with cardiology who recommended discontinuing the digoxin. He also followed up with urology for urinary retention requiring a english catheter to be placed. He was started on Finasteride and Flomax on Friday03/21/2023. He states for the last three weeks, one endocrinology appointment and two PCP appointments, he has had hypotension. At his PCP office today, it was recommended that he either discontinue his blood pressure medication Lisinopril (previously halved when the hypotension was noted) or present to the ED for further evaluation. Otherwise he endorses loss of appetite. Denies: fever or chills, SOB, cough or congestion, chest pain, headache, nausea/vomiting. Endorses baseline diarrhea. Related Data Home Medications Medication Instructions Recorded Confirmed atorvastatin 40 mg tablet 40 mg PO BEDTIME 09/03/22 02/18/23 lisinopril 40 mg tablet 40 mg PO DAILY@1200 09/03/22 02/18/23 metformin 1,000 mg tablet 1,000 mg PO BID@1200,2100 09/03/22 02/18/23 dulaglutide 1.5 mg/0.5 mL 1.5 mg subcut TH 09/04/22 02/18/23 subcutaneous pen injector (Trulicity) folic acid 1 mg tablet 1 mg PO DAILY@1200 09/04/22 02/18/23 insulin lispro 100 unit/mL See Rx Instructions .Route .COMPLEX 09/04/22 02/18/23 subcutaneous solution (Humalog U-100 Insulin) warfarin 5 mg tablet 2.5 mg PO MOWEFRSA@1800 09/04/22 02/18/23 clopidogrel 75 mg tablet 75 mg PO DAILY 01/06/23 02/18/23 flash glucose scanning reader #1 ea 01/06/23 (FreeStyle Pat 2 [place]) flash glucose sensor (FreeStyle #1 ea 01/06/23 Pat 2 Sensor kit) ammonium lactate 12 % topical cream 1 appl topical DAILY PRN Wound Care 02/12/23 02/18/23 silver sulfadiazine 1 % topical 1 appl topical DAILY PRN Wound Care 02/12/23 02/18/23 cream sub-q insulin device, 20 unit 02/12/23 02/12/23 (V-GO 20 device) warfarin 5 mg tablet 5 mg PO SUTUTH@1800 02/12/23 02/18/23 Previous Rx's Medication Instructions Recorded digoxin 250 mcg (0.25 mg) tablet 250 mcg PO DAILY #30 tabs 02/15/23 furosemide 20 mg tablet 20 mg PO DAILY #30 tabs 02/15/23 magnesium oxide 400 mg (241.3 mg 400 mg PO BIDPC #60 tabs 02/15/23 magnesium) tablet metoprolol tartrate 75 mg tablet 75 mg PO BID #60 tabs 02/15/23 finasteride 5 mg tablet 5 mg PO DAILY 90 days #90 tabs 03/21/23 tamsulosin 0.4 mg capsule 0.4 mg PO BEDTIME 30 days #30 caps 03/21/23 Allergies Allergy/AdvReac Type Severity Reaction Status Date / Time peanut [PEANUTS] Allergy Unknown UNK Verified 03/22/23 09:49 wool [WOOL] Allergy Unknown UNK Verified 03/22/23 09:49 peanuts Allergy Unknown hives Uncoded 03/22/23 09:49 Review of Systems Review of Systems: Yes all other systems are reviewed and are negative [facility] Past Medical History Attestation statement: The following information was validated with the patient. Source: old records reviewed Family History Family History Father Kidney cancer, primary, with metastasis from kidney to other site Heart disease Social History Social History Household Members: Significant Other Housing: House Alcohol intake: never Patient Tobacco Use Status: Never used Tobacco Second Hand Smoke Exposure: No Advance Directives: Yes Advance Directives on File: Yes Advance Directives Date on File: 02/13/23 service: No Physical Exam ED Vital Signs: Vital Signs - 24 hr 03/24/23 12:57 03/24/23 20:06 03/24/23 21:59 Temperature 98.6 F 98.3 F Pulse Rate 64 108 H 116 H Respiratory Rate 14 24 H 18 Blood Pressure 99/64 104/55 L 96/57 L Pulse Oximetry 98 93 96 Oxygen Delivery Method Room Air Room Air Nasal Cannula Oxygen Flow Rate 6 BMI result Body Mass Index 31.8 Patient is afebrile, with soft blood pressure. Const General: cooperative Nutritional Appearance: obese Orientation/consciousness: patient oriented x3 HENMT Head: Yes normal to inspection and Yes atraumatic Neck Neck: Yes full ROM and Yes supple Chest Chest palpation & inspection: normal inspection of the chest and normal palpation of entire chest wall Resp Effort & Inspection: normal respiratory effort and no respiratory distress Cardio Rate: tachycardic Rhythm: other (irregularly irregular) Peripheral pulses: Peripheral pulses 2+ throughout GI Inspection: No distended Palpation (GI): Soft to palpation, not firm, nontender, no guarding and not rigid Auscultation: normal bowel sounds Skin Other: Bilateral lower extremity venous stasis changes with small, well appearing ulcerations without surrounding erythema or significant drainage Neuro General: patient oriented x3 Course Course Course Narrative: RME performed by Awa Rehman PA-C. Patient is a 72 year old assigned male at presenting to the emergency department with low blood pressure. Patient was instructed to stop taking his lisinopril however, he is still taking his lasix and his tamsulosin. Labs ordered. Patient placed back in the waiting room pending room availability and results. Reevaluation(s) Reevaluation #1: Patient has soft-normal blood pressures, atrial fibrillation with intermittent RVR. Reviewed triage labs, noted: Leukocytosis 16.5k. Mild hyperkalemia 5.2. Cr 2.20, previous 0.9 on 02/18/2023. Elevated total bilirubin 1.6. LA 1.8. Do not suspect sepsis at this time as patient with hx atrial fibrillation not currently in RVR, multiple reasons for elevated Cr including obstructive etiology, not hypotensive, lactic acid <2. Pending results of CT scans. COVID/Flu/RSV negative. Ordered CT Chest/Abdomen/Pelvis w/o contrast. Time: 19:56 Reevaluation #2: Patient and at bedside, all questions answered. CT limited due to lack of contrast. However notable for: 5mm kidney stone at the left UPJ with mild left-sided hydronephrosis and hydroureter. Enlarged prostate. Pending straight cath UA for urinary retention. Patient with 600cc UOP following insertion of catheter. UA with evidence of infection. No prior microscopy from previous urine cultures. Concern for possible sepsis at this time due to hypotension x2, tachypnea, mild hypoxia requiring 2L NC, and source of infection. Blood and urine cultures, LA previously ordered. Patient previously received 1L IVF. Ordered for 2L IVF which was hung for total 3L IVF. Decision for total 3L (instead of recommended 3.5L) at this time due to patient's known history of CHF. Treated with Ceftriaxone 2g IV to cover for UTI +/- possible prostatitis (difficult to distinguish due to recent urological intervention). Will cover for possible infection. No evidence of abscess on CT. Plan: Admit to hospitalist for ELMIRA, UTI, left-sided nephrolithiasis, urosepsis. Condition: Stable Time: 21:37 Reevaluation #3: EXAMINATION: CT CHEST, ABDOMEN AND PELVIS WITHOUT CONTRAST. CLINICAL INFORMATION: leukocytosis, hypotension. COMPARISON: 05/30/2017. TECHNIQUE: Multidetector volumetric imaging was performed from the thoracic inlet through the pubic symphysis without intravenous contrast. Sagittal and coronal reformatted images were obtained on the technologist workstation. This CT examination was performed using dose optimization techniques as appropriate, variously including the following: *Automated exposure control *Adjustment of mA and/or kV according to patient size (this includes techniques or standardized protocols for targeted exams where dose is matched to indication/reason for exam; i.e. extremities or head) *Use of iterative reconstruction technique DLP: 1608 mGy-cm FINDINGS: CHEST: Lungs: There is focal rounded atelectasis seen in the posterior right lower lobe with curvilinear appearance similar to the 2018 study. Linear subsegmental atelectasis or scarring at the left lung base also partially visualized on the prior 2018 study as well. No significant effusion or pneumothorax. Mediastinum: Extensive vascular calcification in the coronary vessels and to less extent visualized thoracic aorta. No bulky adenopathy Coronary Artery Calcification: Present Pericardium/Pleura: No significant effusion. No pleural mass or thickening. Chest Wall/Axilla: Unremarkable. ABDOMEN/PELVIS: Peritoneal Space:No significant free air or free fluid identified. Liver, Gallbladder, Biliary Tree: The non contrast liver is normal in size, shape, and attenuation. No focal hepatic lesion or biliary ductal dilatation is present. The gallbladder is completely contracted but grossly unremarkable with no evidence of radiopaque gallstones, gallbladder wall thickening, or obvious pericholecystic inflammatory changes. Pancreas: Unremarkable. Spleen: Unremarkable. Adrenal Glands: Unremarkable. Kidneys and Ureters: Left: There is mild left-sided fullness extending up to a 5 mm calcification at the left ureterovesical pelvic junction. There is an additional nonobstructing intrarenal calculi measuring approximately 2 mm in size in the left lower pole. Minimal perinephric stranding. Right: Asymmetrically increased right perinephric stranding. There is subtle lobulated contour and heterogeneity to the lower pole collecting system. This difficult to define further on this study. This could represent small cysts however difficult to define further on this study. On the 2018 CT scan there was some subtle hypodensities in the right lower pole as well suggesting this could represent tiny cysts as suggested on the 09/24/2017 ultrasound. Bladder: Small bubble of air is seen in the nondependent bladder lumen. This could be related to recent intervention however underlying infectious etiology could have a similar appearance and clinical correlation with urinalysis would be recommended. Gastrointestinal Tract: The sigmoid colon is very tortuous but I do not appreciate any obstructive changes. This is better delineated on the prior 2018 study. No obstructive changes seen. Normal-appearing appendix in the right midabdomen. No obstructive changes to the small bowel. Abdominal Wall: Fat-containing periumbilical hernia similar to the 2018 study Lymphovascular Structures: Vascular calcification within the aorta iliac system. Shotty peritoneal lymph nodes are noted. Pelvic Viscera: Prostate is enlarged and ill-defined. Again in this setting, prostatitis infectious etiology cannot be excluded and correlation with urinalysis recommended Osseus Structures: Degenerative changes in the spine and hips. There are scattered sclerotic foci within the ribs including probable sclerotic bone islands in the right lateral third and sixth ribs as well as the lateral left eighth rib CT/CT chest wo IV con IMPRESSION: 1. There is a 5 mm calcification at the left ureteropelvic junction with mild left-sided hydronephrosis and hydroureter. 2. There is asymmetric perinephric stranding on the right with subtle heterogeneity to the lower pole collecting system. This is difficult to define further on this noncontrast CT scan. This could represent adjacent small cysts but difficult to define further on this noncontrast study. Pyelonephritis cannot be entirely excluded but would be considered less likely when compared to the [address] scan 3. The prostate is enlarged and ill-defined and correlation with urinalysis recommended to exclude prostatitis. 4. Chronic appearing changes in the lungs as described above. 5. Tiny bubble of air in the bladder lumen. This could be related to recent intervention however underlying infectious etiology could have a similar appearance and clinical correlation with urinalysis would be recommended. Medications Administered Generic Name Dose Route Start Last Admin Trade Name Freq PRN Reason Stop Dose Admin Sodium Chloride 1,000 mls @ 999 mls/hr 03/24/23 21:45 03/24/23 21:57 Ns IV 03/24/23 22:45 999 mls/hr .Q1H1M JOY Administration Discontinued Medications Generic Name Dose Route Start Last Admin Trade Name Freq PRN Reason Stop Dose Admin Sodium Chloride 1,000 mls @ 999 mls/hr 03/24/23 16:45 03/24/23 20:32 Ns IV 03/24/23 17:45 Infused .Q1H1M JOY Infusion Ceftriaxone Sodium 1 gm/ 50 mls @ 100 mls/hr 03/24/23 21:28 03/24/23 21:56 Sodium Chloride IV 03/24/23 21:57 100 mls/hr ONCE ONE Administration Medical Decision Making Lab Data 03/24/23 13:38 03/24/23 13:38 Labs: Lab Results 03/24/23 03/24/23 03/24/23 Range/Units 13:38 18:03 20:52 WBC 16.5 H (4.8-10.8) X10*3/uL RBC 5.27 (4.60-5.80) X10*6/uL Hgb 11.9 L (14.0-18.0) g/dl Hct 39.5 L (42.0-52.0) % MCV 75.0 L (80.0-98.0) fL MCH 22.6 L (27.0-33.0) pg MCHC 30.1 L (31.0-36.0) g/dl RDW 20.8 H (11.0-16.0) % Plt Count 227 D (160-400) X10*3/uL MPV 9.4 (9.4-12.4) fL Immature Gran % (Auto) 0.8 H (0.0-0.4) % Neut % (Auto) 86.1 H (45-73) % Lymph % (Auto) 4.0 L (20-40) % Boundary % (Auto) 8.8 (2-11) % Eos % (Auto) 0.1 (0-4) % Baso % (Auto) 0.2 (0-2) % Lymph # (Auto) 0.7 L (1.2-4.9) X10*3/uL Boundary # (Auto) 1.5 H (0.1-1.2) X10*3/uL Eos # (Auto) 0.0 (0.0-0.4) X10*3/uL Baso # (Auto) 0.0 (0.0-0.2) X10*3/uL Abs Immat Gran (auto) 0.13 H (0.00-0.03) X10*3/uL Absolute Neuts (auto) 14.2 H (2.0-8.3) x10*3/uL Absolute Nucleated RBC 0.000 (0.0-0.012) X10*3/uL Nucleated RBC % (auto) 0.0 (0.0-0.2) /100WBC PT 30.5 H D (11.1-13.3) SEC INR 2.5 H (0.9-1.1) APTT 37.6 H (26.0-36.4) SEC Sodium 133 L (135-145) mmol/L Potassium 5.2 H (3.3-5.1) mmol/L Chloride 103 (96-108) mmol/L Carbon Dioxide 22 (22-29) mmol/L Anion Gap 13 (12-20) BUN 63 H (9-16) mg/dL Creatinine 2.20 H (0.5-1.4) mg/dL Estim Creat Clear Calc 43.9 Estimated GFR 30 Random Glucose 137 H (60-115) mg/dL Lactic Acid 1.8 (0.5-2.0) mmol/L Calcium 9.5 (8.4-10.2) mg/dL Magnesium 2.1 (1.6-2.6) mg/dL Total Bilirubin 1.6 H (0.0-1.0) mg/dL Direct Bilirubin 0.7 H (0.0-0.5) mg/dL AST 14 (5-37) U/L ALT 11 (0-40) U/L Alkaline Phosphatase 79 (39-117) U/L Troponin I High Sens < 2.7 (<3.5-35.0) ng/L Total Protein 7.5 (6.5-8.0) g/dL Albumin 3.3 L (3.5-5.0) g/dL Lipase 74 (8-78) U/L Urine Color Yellow Urine Appearance Turbid Urine pH 5.5 (5.0-9.0) Ur Specific [place] 1.025 (1.005-1.025) Urine Protein 30 (1+) H (Neg-Trace) mg/dL Urine Glucose (UA) Negative (Negative) mg/dL Urine Ketones Trace (Negative) mg/dL Urine Blood Moderate (2+) H (Negative) Urine Nitrite Negative (Negative) Ur Leukocyte Esterase Large (3+) H (Negative) Urine RBC >20 H (0-2) /HPF Urine WBC >50 H (0-5) /HPF Ur Squamous Epith Cells 6-10 (0-2) /HPF Urine Bacteria 3+ (None Seen) Hyaline Casts 6-10 (0-2) /LPF Influenza Type A (PCR) NEGATIVE (Negative) Influenza Type B (PCR) NEGATIVE (Negative) RSV RNA Qual (PCR) NEGATIVE (Negative) SARS-CoV-2 RNA (RT-PCR) NEGATIVE (Negative) Blood Type AB Positive Antibody Screen NEGATIVE Discharge Plan Discharge Clinical Impression: Sepsis, Acute UTI, ELMIRA (acute kidney injury), Acute on chronic urinary retention, Calculus of left kidney Patient Disposition: Admitted As Inpatient
--- NOTE | 2023-03-24 13:00 | ECG_ITS ---
Test Reason : hypotensive Blood Pressure : / mmHG Vent. Rate : 117 BPM Atrial Rate : 000 BPM P-R Int : 000 ms QRS Dur : 092 ms QT Int : 272 ms P-R-T Axes : 000 014 060 degrees QTc Int : 379 ms Atrial fibrillation with rapid ventricular response with premature ventricular or aberrantly conducted complexes Nonspecific T wave abnormality Abnormal ECG When compared with ECG of 13-FEB-2023 15:34, No significant changes seen Referred By: Awa Rehman Electronically Signed By:KAREN SUAZO
[2023-03-24 13:47] LABS: MANUAL DIFF FLAG NO
[2023-03-24 13:48] LABS: Basophils Percent Auto 0.2 % (0-2); Eosinophils Percent Auto 0.1 % (0-4); Hematocrit 39.5 % (42.0-52.0); Hemoglobin 11.9 g/dl (14.0-18.0); Imm Gran Abs Auto 0.13 X10*3/uL (0.00-0.03); Imm Gran Pct Auto 0.8 % (0.0-0.4); Lymphocytes Absolute Auto 0.7 X10*3/uL (1.2-4.9); Mean Corpuscular HGB Conc 30.1 g/dl (31.0-36.0); Mean Corpuscular Hemoglobin 22.6 pg (27.0-33.0); Mean Platelet Volume 9.4 fL (9.4-12.4); Monocytes Absolute Auto 1.5 X10*3/uL (0.1-1.2); Monocytes Percent Auto 8.8 % (2-11); Neutrophils Absolute Auto 14.2 x10*3/uL (2.0-8.3); Neutrophils Percent Auto 86.1 % (45-73); Platelet Count 227 X10*3/uL (160-400); Red Blood Count 5.27 X10*6/uL (4.60-5.80); Red Cell Distribution Width 20.8 % (11.0-16.0); White Blood Count 16.5 X10*3/uL (4.8-10.8)
[2023-03-24 13:57] LABS: INTERNATIONAL NORM RATIO 2.5 (0.9-1.1); Prothrombin Time 30.5 SEC (11.1-13.3)
[2023-03-24 14:00] LABS: Partial Thromboplastin Time 37.6 SEC (26.0-36.4)
[2023-03-24 14:04] LABS: Alanine Aminotransferase 11 U/L (0-40); Albumin Level 3.3 g/dL (3.5-5.0); Alkaline Phosphatase 79 U/L (39-117); Anion Gap 13 (12-20); Aspartate Amino Transferase 14 U/L (5-37); Bilirubin Total 1.6 mg/dL (0.0-1.0); Blood Urea Nitrogen 63 mg/dL (9-16); Calcium 9.5 mg/dL (8.4-10.2); Carbon Dioxide 22 mmol/L (22-29); Chloride 103 mmol/L (96-108); Creatinine Clr Calc Pharmacy 43.9; Estimated Glomerular Filt Rate 30; Glucose Random 137 mg/dL (60-115); Magnesium 2.1 mg/dL (1.6-2.6); Potassium 5.2 mmol/L (3.3-5.1); Sodium 133 mmol/L (135-145); Total Protein 7.5 g/dL (6.5-8.0)
[2023-03-24 14:10] LABS: Troponin-I High Sensitivity < 2.7 ng/L (<3.5-35.0)
[2023-03-24 14:36] LABS: Influenza A PCR NEGATIVE (Negative); Influenza B PCR NEGATIVE (Negative); Resp Syncy Virus RNA Qual PCR NEGATIVE (Negative); SARS COV2 PCR INHOUSE NEGATIVE (Negative)
[2023-03-24 16:36] LABS: Bilirubin Direct 0.7 mg/dL (0.0-0.5); Lipase 74 U/L (8-78)
[2023-03-24 18:21] LABS: Lactic Acid 1.8 mmol/L (0.5-2.0)
[2023-03-24] MEDS: 0.9 % Sodium Chloride 1,000 ML 999 ML IV ×2 (18:40→21:57)
[2023-03-24 20:06] VITALS: BP 104/55; PULSE 108; RESP 24; TEMP 36.8; O2SAT 93
--- NOTE | 2023-03-24 20:51 | PC.NURSE ---
Verbal order received from Dr. Garcia to insert an 18F urine cath as pt is not voiding and retaining urine. 18F urine cath inserted with no complication. 10cc of NS inserted in balloon. 600cc of sedimented, cloudy urine in urine retention bag. Pt tolerated well.
[2023-03-24 21:00] LABS: Appearance Urine Turbid; Color Urine Yellow; Glucose Urine UA Negative (Negative); Leukocyte Esterase Urine Large (3+) (Negative); Nitrite Urine Negative (Negative); PH 5.5 (5.0-9.0); Specific Gravity - Urine 1.025 (1.005-1.025); UMIC TRIGGER UACC YES; Urine Blood Moderate (2+) (Negative); Urine Ketones Trace mg/dL (Negative); Urine Protein 30 (1+) mg/dL (Neg-Trace)
[2023-03-24 21:16] LABS: Bacteria Urine 3+ (None Seen); RBC Urine >20 /HPF (0-2); UACC Culture Trigger YES; WBC Urine >50 /HPF (0-5)
--- NOTE | 2023-03-24 21:27 | PC.NURSE ---
O2 sat noted to decrease to 86% RA. Pt placed on 2L with O2 improvement to 96%.
[2023-03-24] MEDS: cefTRIAXone sodium 1 GM in 0.9 % Sodium Chloride 50 ML IV ×2 (21:56→22:43)
[2023-03-24 21:59] VITALS: BP 96/57; PULSE 116; RESP 18; O2SAT 96
--- NOTE | 2023-03-24 22:21 | PHA.MEDREC ---
Pharmacy Consult ? Medication Reconciliation Pharmacy has completed the medication reconciliation.sPOKE WITH PATIENT IN ED WHO KNEW MEDS AND HAD LIST OF MEDS. PATIENT TOOK ONLY AM MEDS. PATIENT DID NOT GET COUMADIN TODAY. PATIENT IS NO LONGER TAKING DIGOXIN/LISINOPRIL/OMEPRAZOLE (DC'ED BY MD)
--- NOTE | 2023-03-24 23:24 | PM.IMHP ---
History of Present Illness Date of Service: 03/24/23 Attending physician on admission: Gil Christopher Chief Complaint: hypotension 72-year-old male with well-controlled insulin-dependent type 2 diabetes, GERD, coronary artery disease s/p PCI with SELENE in 11/2022 on DAPT, HFpEF, paroxysmal atrial fibrillation, history of bilateral lower extremity DVT anticoagulated with Coumadin, chronic venous stasis dermatitis presented to the ED earlier today from PCP office for evaluation of hypotension. Per the patient, he was seen at PCP office and blood pressure was 55/38 and was reporting confusion and lethargy. Per the patient, he has had several provider visits in the last few weeks and blood pressure has been low. He is no longer taking his blood pressure medications except for his Lasix. He is also reporting urinary retention. He had Julio catheter in place for about 1 month and was seen in urology office on Friday where it was removed and he was able to void. He was started on finasteride at that time. However, over the weekend reported recurrence of retention with limited urinary output. He denies any fevers, chills, abdominal pain, nausea, vomiting, dysuria, hematuria, increased urinary frequency or urgency. No shortness of breath, palpitations, lightheadedness, syncope, or chest pain. On arrival, blood pressure is soft but vitals otherwise stable. Per ED provider, patient did have at least 2 episodes of hypotension though this is unfortunately not documented. He was given 2 L IV fluid with improvement in blood pressure to 96/57 on admission. He is tachycardic with heart rates ranging from 01/08-130s noted to be in atrial fibrillation. He does have leukocytosis of 16.5. He has a stable chronic microcytic anemia. INR 2.5, goal 2.0-3.0. Creatinine 2.20, baseline 0.90, BUN 63. Sodium 133, potassium 5.2, electrolytes otherwise within normal limits. Glucose 137. Total bilirubin 1.6, direct bilirubin 0.7. AST/ALT normal. Troponin below detectable limits. Urinalysis significant for 3+ leukocytes, negative nitrites, 2+ blood, positive urinary sediment, 3+ bacteria. Negative for influenza, COVID-19, RSV. CT chest without any evidence of acute cardiopulmonary abnormality but showing chronic linear subsegmental atelectasis and scarring, unchanged from prior imaging. CT abdomen/pelvis shows a 5 mm stone at the left ureteropelvic junction with mild left-sided hydronephrosis and hydroureter. There is also asymmetric perinephric stranding on the right with subtle heterogenicity to the lower pole collecting system. Prostate is also noted to be enlarged an ill-defined. There is also tiny bubble of air in the bladder lumen possibly related to recent Julio catheter removal versus infectious etiology. In the ED, has received 2 L IV NS and 2 g IV ceftriaxone. Patient remains in AFib with RVR and will be given 2.5 mg IV metoprolol. Patient to be admitted for severe sepsis secondary to UTI with obstructive uropathy and atrial fibrillation with RVR. [facility] Medical History BPH (benign prostatic hyperplasia) Chronic venous stasis dermatitis GERD (gastroesophageal reflux disease) CAD (coronary artery disease) Type 2 diabetes mellitus (HFpEF) heart failure with preserved ejection fraction Atrial fibrillation Family History Father Kidney cancer, primary, with metastasis from kidney to other site Heart disease Surgical History Status post percutaneous transluminal angioplasty (PLATE CORRECTOR) with stent placement Social History Household Members: Significant Other Housing: House Alcohol intake: never Patient Tobacco Use Status: Never used Tobacco Second Hand Smoke Exposure: No Advance Directives: Yes Advance Directives on File: Yes Advance Directives Date on File: 02/13/23 service: No Meds Allergies Allergy/AdvReac Type Severity Reaction Status Date / Time peanut [PEANUTS] Allergy Unknown UNK Verified 03/22/23 09:49 wool [WOOL] Allergy Unknown UNK Verified 03/22/23 09:49 peanuts Allergy Unknown hives Uncoded 03/22/23 09:49 Active Medications: Current Medications Acetaminophen (Acetaminophen 325 Mg Tablet) 650 mg PO Q6H PRN PRN Reason: Pain, Mild (Pain Scale 1-3) Sodium Chloride (Ns) 500 mls @ 500 mls/hr IV .Q1H JOY Stop: 03/25/23 00:14 Ceftriaxone Sodium 1 gm/ (Sodium Chloride) 50 mls @ 100 mls/hr IV Q24H [facility] Melatonin (Melatonin 3 Mg Tablet) 3 mg PO BEDTIME PRN PRN Reason: Insomnia Ondansetron HCl (Ondansetron Hcl 4 Mg/2 Ml Vial) 4 mg IVPUSH Q8H PRN PRN Reason: Nausea and Vomiting Senna (Sennosides 8.6 Mg Tablet) 17.2 mg PO BEDTIME PRN PRN Reason: Constipation Sodium Chloride (0.9 % Sodium Chloride Flush 3 Ml Syringe) 3 ml IVFLUSH QSHIFT [facility] Home Medications Medication Instructions Recorded Confirmed Last Taken Type atorvastatin 40 mg tablet 40 mg PO BEDTIME 09/03/22 03/24/23 03/23/23 History metformin 1,000 mg tablet 1,000 mg PO BID@1200,2100 09/03/22 03/24/23 03/23/23 History dulaglutide 1.5 mg/0.5 mL 1.5 mg subcut TH@0900 09/04/22 03/24/23 02/20/23 History subcutaneous pen injector (Trulicity) folic acid 1 mg tablet 1 mg PO DAILY@1200 09/04/22 03/24/23 03/23/23 History insulin lispro 100 unit/mL See Rx Instructions .Route .COMPLEX 09/04/22 03/24/23 03/24/23 History subcutaneous solution (Humalog U-100 Insulin) warfarin 5 mg tablet 2.5 mg PO MOWEFRSA@1800 09/04/22 03/24/23 03/22/23 History clopidogrel 75 mg tablet 75 mg PO DAILY 01/06/23 03/24/23 03/24/23 History flash glucose scanning reader #1 ea 01/06/23 Unknown History (FreeStyle Pat 2 [place]) flash glucose sensor (FreeStyle #1 ea 01/06/23 Unknown History Pat 2 Sensor kit) ammonium lactate 12 % topical cream 1 appl topical DAILY PRN Wound Care 02/12/23 03/24/23 Unknown History silver sulfadiazine 1 % topical 1 appl topical DAILY PRN Wound Care 02/12/23 03/24/23 Unknown History cream sub-q insulin device, 20 unit 02/12/23 02/12/23 03/24/23 History (V-GO 20 device) warfarin 5 mg tablet 5 mg PO SUTUTH@1800 02/12/23 03/24/23 03/23/23 History finasteride 5 mg tablet 5 mg PO DAILY@1200 03/24/23 03/24/23 03/23/23 History metoprolol tartrate 75 mg tablet 75 mg PO BID@0900,1700 03/24/23 03/24/23 03/24/23 History Physical Exam Vital Signs and Narrative: Vital Signs: Last Vital Signs Temp 98.3 F 03/24/23 20:06 Pulse 116 H 03/24/23 21:59 Resp 18 03/24/23 21:59 BP 96/57 L 03/24/23 21:59 Pulse Ox 96 03/24/23 21:59 O2 Del Method Nasal Cannula 03/24/23 21:59 O2 Flow Rate 6 03/24/23 21:59 BMI result Body Mass Index 31.8 Constitutional - Awake and Alert, ill appearing, No apparent distress Eyes - PERRLA, EOMI Cardiovascular - S1S2, irregularly irregular, tachycardic, No edema Respiratory - Normal lung expansion, Normal respiratory effort, No respiratory distress, CTA bilaterally Gastrointestinal - NT / ND; +BS; No rebound or guarding - No CVA tenderness Extremities - no calf tenderness bilaterally, no swelling Skin - Warm/Dry. partial thickness decubitus ulcer the buttock bilaterally. Chronic venous stasis changes to the bilateral lower extremities Neurological - Alert & oriented x3 Psychological - Appropriate affect Results Labs 03/24/23 13:38 03/24/23 13:38 Labs: Laboratory Results - last 24 hr 03/24/23 03/24/23 03/24/23 13:38 18:03 20:52 MCV 75.0 L MCH 22.6 L MCHC 30.1 L RDW 20.8 H Plt Count 227 D MPV 9.4 Immature Gran % (Auto) 0.8 H Neut % (Auto) 86.1 H Lymph % (Auto) 4.0 L Mayes % (Auto) 8.8 Eos % (Auto) 0.1 Baso % (Auto) 0.2 Lymph # (Auto) 0.7 L Mayes # (Auto) 1.5 H Eos # (Auto) 0.0 Baso # (Auto) 0.0 Abs Immat Gran (auto) 0.13 H Absolute Neuts (auto) 14.2 H Absolute Nucleated RBC 0.000 Nucleated RBC % (auto) 0.0 PT 30.5 H D INR 2.5 H APTT 37.6 H Anion Gap 13 Estim Creat Clear Calc 43.9 Estimated GFR 30 Random Glucose 137 H Lactic Acid 1.8 Calcium 9.5 Magnesium 2.1 Total Bilirubin 1.6 H Direct Bilirubin 0.7 H AST 14 ALT 11 Alkaline Phosphatase 79 Total Protein 7.5 Albumin 3.3 L Lipase 74 Urine Color Yellow Urine Appearance Turbid Urine pH 5.5 Ur Specific [place] 1.025 Urine Protein 30 (1+) H Urine Glucose (UA) Negative Urine Ketones Trace Urine Blood Moderate (2+) H Urine Nitrite Negative Ur Leukocyte Esterase Large (3+) H Urine RBC >20 H Urine WBC >50 H Ur Squamous Epith Cells 6-10 Urine Bacteria 3+ Hyaline Casts 6-10 Influenza Type A (PCR) NEGATIVE Influenza Type B (PCR) NEGATIVE RSV RNA Qual (PCR) NEGATIVE SARS-CoV-2 RNA (RT-PCR) NEGATIVE Blood Type AB Positive Antibody Screen NEGATIVE Imaging Radiologist's Impressions: Impressions Abdomen/Pelvis CT 03/24/23 16:57 IMPRESSION: 1. There is a 5 mm calcification at the left ureteropelvic junction with mild left-sided hydronephrosis and hydroureter. 2. There is asymmetric perinephric stranding on the right with subtle heterogeneity to the lower pole collecting system. This is difficult to define further on this noncontrast CT scan. This could represent adjacent small cysts but difficult to define further on this noncontrast study. Pyelonephritis cannot be entirely excluded but would be considered less likely when compared to the 2018 CT scan 3. The prostate is enlarged and ill-defined and correlation with urinalysis recommended to exclude prostatitis. 4. Chronic appearing changes in the lungs as described above. 5. Tiny bubble of air in the bladder lumen. This could be related to recent intervention however underlying infectious etiology could have a similar appearance and clinical correlation with urinalysis would be recommended. Chest CT 03/24/23 16:57 IMPRESSION: 1. There is a 5 mm calcification at the left ureteropelvic junction with mild left-sided hydronephrosis and hydroureter. 2. There is asymmetric perinephric stranding on the right with subtle heterogeneity to the lower pole collecting system. This is difficult to define further on this noncontrast CT scan. This could represent adjacent small cysts but difficult to define further on this noncontrast study. Pyelonephritis cannot be entirely excluded but would be considered less likely when compared to the 2018 CT scan 3. The prostate is enlarged and ill-defined and correlation with urinalysis recommended to exclude prostatitis. 4. Chronic appearing changes in the lungs as described above. 5. Tiny bubble of air in the bladder lumen. This could be related to recent intervention however underlying infectious etiology could have a similar appearance and clinical correlation with urinalysis would be recommended. Assessment and Plan (1) Obstructive uropathy: Status: Acute (2) ELMIRA (acute kidney injury): Status: Acute (3) Sepsis: Status: Acute (4) Atrial fibrillation with RVR: Status: Acute Plan 72-year-old male with well-controlled insulin-dependent type 2 diabetes, GERD, coronary artery disease s/p PCI with SELENE in 11/2022 on DAPT, HFpEF, paroxysmal atrial fibrillation, history of bilateral lower extremity DVT anticoagulated with Coumadin, chronic venous stasis dermatitis admitted for UTI with severe sepsis and obstructive uropathy with ELMIRA as well as atrial fibrillation with RVR # acute UTI with severe sepsis -leukocytosis of 16.4, tachycardic, hypotension per ED per provider report resolved with IV fluids. Lactic acid normal. ELMIRA likely secondary to obstructive uropathy rather than severe sepsis -UA with 3+ leukocytes, negative nitrites, 2+ blood, positive urinary sediment, 3+ bacteria -IV ceftriaxone (initiated 03/24) -Received 2L IV NS in ED, give 5mg midodrine for soft blood pressures. Monitor VS closely -follow CBC, cultures #Hypotension- resolved on admission -05/23 above -Given 5mg midodrine and 2L IV NS -Monitor BP closely # obstructive uropathy with urinary retention -likely multifactorial secondary to prostate enlargement as well as 5 mm obstructing stone at the left ureterovesical junction -Julio catheter -urology consult -strict I&O # acute kidney injury -secondary to above -creatinine 2.20, baseline 0.9 -received 2 L IV NS in the ED -strict I&O, Julio catheter placed -avoid nephrotoxins -follow renal function, electrolyte levels # paroxysmal atrial fibrillation with RVR -likely multifactorial secondary to infection as well as noncompliance with rate controlling medications -continue Coumadin, INR therapeutic at 2.5. Monitor INR daily -give 2.5 mg IV Lopressor now. Resume p.o. metoprolol a.m. as blood pressure allows -cardiac diet -cardiology consult -monitor on telemetry # stage II decubitus ulcer buttock -barrier cream, pressure dressings -turn and position -distribution lead consult # cutaneous candidiasis -nystatin powder # insulin-dependent type 2 diabetes- controlled -POC glucose, diabetic diet -patient uses insulin pump at home, continue -hold oral antihyperglycemics # CAD -continue dapt, bb, Coumadin #HFpEF -no acute exacerbation, euvolemic appearing on exam -continue p.o. Lasix # BPH -continue finasteride, Flomax DVT prophylaxis-Coumadin Full code Patient requires inpatient stay at least 2 midnights for management of afib with rvr, UTI with severe sepsis and obstructive uropathy requiring IV antibiotics, IV fluid resuscitation, close monitoring of vital signs, electrolyte levels, renal function to prevent further decompensation. Will also require expert consultation and possible ureteral stent placement Quality Stroke Does the patient have a stroke diagnosis?: No VTE Prior VTE?: Yes VTE Risk Level:: Medical - moderate - high VTE Device Contraindication: Treatment Not Indicated VTE Drug Contraindication: N/A - Med Ordered
[2023-03-24 23:44] VITALS: BP 113/63; PULSE 122; RESP 22; O2SAT 94
[2023-03-24] MEDS: Midodrine HCl 5 MG TABLET PO (23:49)
[2023-03-24] MEDS: Metoprolol Tartrate 5 MG/5 ML VIAL 2.5 MG IVPUSH (23:49)
[2023-03-24] MEDS: 0.9 % Sodium Chloride 500 ML IV (23:49)
--- NOTE | 2023-03-24 23:50 | MHC.EDTECH ---
Pt assisted oob to transfer to hospital bed. Pt is unsteady on his feet. Pillow placed under right side of pt due to bedsores to bottom. RN aware
[2023-03-25] VITALS (10 sets, daily range): BP systolic 97–118; BP diastolic 50–67; PULSE 86–122; RESP 16–26; TEMP 36.2–37.1; O2SAT 92–98; BMI 32.4
--- NOTE | 2023-03-25 00:17 | MHC.EDTECH ---
Pt english cath emptied of 800 cc orange tinted urine with some sediment noted. RN aware
[2023-03-25] MEDS: Tamsulosin HCL 0.4 MG CAPSULE PO (00:36)
[2023-03-25] MEDS: 0.9 % Sodium Chloride Flush 3 ML SYRINGE IVFLUSH ×4 (00:36→23:00)
[2023-03-25 05:49] LABS: MANUAL DIFF FLAG NO
[2023-03-25 05:54] LABS: Basophils Percent Auto 0.1 % (0-2); Eosinophils Absolute Auto 0.1 X10*3/uL (0.0-0.4); Eosinophils Percent Auto 0.5 % (0-4); Hematocrit 35.4 % (42.0-52.0); Hemoglobin 10.7 g/dl (14.0-18.0); Imm Gran Abs Auto 0.07 X10*3/uL (0.00-0.03); Imm Gran Pct Auto 0.7 % (0.0-0.4); Lymphocytes Absolute Auto 0.6 X10*3/uL (1.2-4.9); Lymphocytes Percent Auto 5.7 % (20-40); Mean Corpuscular HGB Conc 30.2 g/dl (31.0-36.0); Mean Corpuscular Hemoglobin 22.8 pg (27.0-33.0); Mean Corpuscular Volume 75.5 fL (80.0-98.0); Mean Platelet Volume 9.5 fL (9.4-12.4); Monocytes Absolute Auto 1.1 X10*3/uL (0.1-1.2); Monocytes Percent Auto 10.8 % (2-11); Neutrophils Percent Auto 82.2 % (45-73); Platelet Count 191 X10*3/uL (160-400); Red Blood Count 4.69 X10*6/uL (4.60-5.80); Red Cell Distribution Width 20.5 % (11.0-16.0); White Blood Count 9.8 X10*3/uL (4.8-10.8)
[2023-03-25 06:01] LABS: INTERNATIONAL NORM RATIO 3.1 (0.9-1.1)
[2023-03-25 06:15] LABS: Anion Gap 10 (12-20); Blood Urea Nitrogen 56 mg/dL (9-16); Calcium 8.5 mg/dL (8.4-10.2); Carbon Dioxide 24 mmol/L (22-29); Chloride 108 mmol/L (96-108); Creatinine Clr Calc Pharmacy 64.8; Estimated Glomerular Filt Rate 47; Glucose Random 144 mg/dL (60-115); Potassium 4.7 mmol/L (3.3-5.1); Sodium 137 mmol/L (135-145)
--- NOTE | 2023-03-25 08:26 | P.PNIM_ITS ---
Subjective Subjective Date of Service: 03/26/23 Interval History: f/u on Uti, sepsis, afib with rivr hypotension resolved, no fever or chills. HR remains high Physical Exam 2 Vital Signs: Vital Signs: Last Vital Signs Temp 97.6 F 03/25/23 07:49 Pulse 122 H 03/25/23 07:49 Resp 16 03/25/23 07:49 BP 106/50 L 03/25/23 07:49 Pulse Ox 94 03/25/23 07:49 O2 Del Method Nasal Cannula 03/25/23 07:49 O2 Flow Rate 3 03/25/23 07:49 BMI result Body Mass Index 31.8 Objective Data Active Medications Acetaminophen (Acetaminophen 325 Mg Tablet) 650 mg PO Q6H PRN PRN Reason: Pain, Mild (Pain Scale 1-3) Atorvastatin Calcium (Atorvastatin Calcium 40 Mg Tablet) 40 mg PO BEDTIME [facility] Clopidogrel Bisulfate (Clopidogrel Bisulfate 75 Mg Tablet) 75 mg PO DAILY [facility] Finasteride (Finasteride 5 Mg Tablet) 5 mg PO DAILY@1200 [facility] Folic Acid (Folic Acid 1 Mg Tablet) 1 mg PO DAILY@1200 [facility] Furosemide (Furosemide 20 Mg Tablet) 20 mg PO DAILY [facility]; Protocol Ceftriaxone Sodium 1 gm/ (Sodium Chloride) 50 mls @ 100 mls/hr IV Q24H [facility] Insulin Human Lispro (Insulin Lispro 100 Unit/Ml 3 Ml Vial) 0 unit SUBCUT .COMPLEX [facility] Insulin Pump (Subcutaneous Insulin Pump) 1 each SUBCUT QIDACHS [facility]; Protocol Lactic Acid (Ammonium Lactate 12 % Cream 140 Gm Tube) 1 appl TOPICAL DAILY PRN; Protocol PRN Reason: Wound Care Magnesium Oxide (Magnesium Oxide 400 Mg Tablet) [facility] Melatonin (Melatonin 3 Mg Tablet) 3 mg PO BEDTIME PRN PRN Reason: Insomnia Metoprolol Tartrate (Metoprolol Tartrate 25 Mg Tablet) 75 mg PO BID@0900,1700 [facility]; Protocol Nystatin (Nystatin Powder 15 Gm Bottle) 1 appl TOPICAL BID [facility]; Protocol Ondansetron HCl (Ondansetron Hcl 4 Mg/2 Ml Vial) 4 mg IVPUSH Q8H PRN PRN Reason: Nausea and Vomiting Senna (Sennosides 8.6 Mg Tablet) 17.2 mg PO BEDTIME PRN PRN Reason: Constipation Silver Sulfadiazine (Silver Sulfadiazine 1 % Cream 20 Gm Tube) 1 appl TOPICAL DAILY PRN PRN Reason: Wound Care Sodium Chloride (0.9 % Sodium Chloride Flush 3 Ml Syringe) 3 ml IVFLUSH QSHIFT [facility] Last Admin: 03/25/23 00:36 Dose: 3 ml Documented By: KAM Tamsulosin HCl (Tamsulosin Hcl 0.4 Mg Capsule) 0.4 mg PO DAILY@1730 [facility] Warfarin Sodium (Warfarin Sodium 2.5 Mg Tablet) 2.5 mg PO MOWEFRSA@1800 [facility] Warfarin Sodium (Warfarin Sodium 5 Mg Tablet) 5 mg PO SUTUTH@1800 [facility] Labs 03/25/23 05:13 03/26/23 07:23 Labs: Laboratory Results - last 24 hr 03/24/23 03/24/23 03/24/23 13:38 18:03 20:52 MCV 75.0 L MCH 22.6 L MCHC 30.1 L RDW 20.8 H Plt Count 227 D MPV 9.4 Immature Gran % (Auto) 0.8 H Neut % (Auto) 86.1 H Lymph % (Auto) 4.0 L [place] % (Auto) 8.8 Eos % (Auto) 0.1 Baso % (Auto) 0.2 Lymph # (Auto) 0.7 L [place] # (Auto) 1.5 H Eos # (Auto) 0.0 Baso # (Auto) 0.0 Abs Immat Gran (auto) 0.13 H Absolute Neuts (auto) 14.2 H Absolute Nucleated RBC 0.000 Nucleated RBC % (auto) 0.0 PT 30.5 H D INR 2.5 H APTT 37.6 H Anion Gap 13 Estim Creat Clear Calc 43.9 Estimated GFR 30 Random Glucose 137 H Lactic Acid 1.8 Calcium 9.5 Magnesium 2.1 Total Bilirubin 1.6 H Direct Bilirubin 0.7 H AST 14 ALT 11 Alkaline Phosphatase 79 Total Protein 7.5 Albumin 3.3 L Lipase 74 Urine Color Yellow Urine Appearance Turbid Urine pH 5.5 Ur Specific [place] 1.025 Urine Protein 30 (1+) H Urine Glucose (UA) Negative Urine Ketones Trace Urine Blood Moderate (2+) H Urine Nitrite Negative Ur Leukocyte Esterase Large (3+) H Urine RBC >20 H Urine WBC >50 H Ur Squamous Epith Cells 6-10 Urine Bacteria 3+ Hyaline Casts 6-10 Influenza Type A (PCR) NEGATIVE Influenza Type B (PCR) NEGATIVE RSV RNA Qual (PCR) NEGATIVE SARS-CoV-2 RNA (RT-PCR) NEGATIVE Blood Type AB Positive Antibody Screen NEGATIVE 03/25/23 03/25/23 05:12 05:13 MCV 75.5 L MCH 22.8 L MCHC 30.2 L RDW 20.5 H Plt Count 191 MPV 9.5 Immature Gran % (Auto) 0.7 H Neut % (Auto) 82.2 H Lymph % (Auto) 5.7 L [place] % (Auto) 10.8 Eos % (Auto) 0.5 Baso % (Auto) 0.1 Lymph # (Auto) 0.6 L [place] # (Auto) 1.1 Eos # (Auto) 0.1 Baso # (Auto) 0.0 Abs Immat Gran (auto) 0.07 H Absolute Neuts (auto) 8.0 Absolute Nucleated RBC 0.000 Nucleated RBC % (auto) 0.0 PT 38.0 H D INR 3.1 H APTT Anion Gap 10 L Estim Creat Clear Calc 64.8 Estimated GFR 47 Random Glucose 144 H Lactic Acid Calcium 8.5 D Magnesium Total Bilirubin Direct Bilirubin AST ALT Alkaline Phosphatase Total Protein Albumin Lipase Urine Color Urine Appearance Urine pH Ur Specific [place] Urine Protein Urine Glucose (UA) Urine Ketones Urine Blood Urine Nitrite Ur Leukocyte Esterase Urine RBC Urine WBC Ur Squamous Epith Cells Urine Bacteria Hyaline Casts Influenza Type A (PCR) Influenza Type B (PCR) RSV RNA Qual (PCR) SARS-CoV-2 RNA (RT-PCR) Blood Type Antibody Screen Assessment and Plan (1) Atrial fibrillation with RVR: Status: Acute (2) Obstructive uropathy: Status: Acute (3) ELMIRA (acute kidney injury): Status: Acute (4) Sepsis: Status: Acute Plan 72-year-old male with well-controlled insulin-dependent type 2 diabetes, GERD, coronary artery disease s/p PCI with SELENE in 11/2022 on DAPT, HFpEF, paroxysmal atrial fibrillation, history of bilateral lower extremity DVT anticoagulated with Coumadin, chronic venous stasis dermatitis admitted for UTI with severe sepsis and obstructive uropathy with ELMIRA as well as atrial fibrillation with RVR # acute UTI with severe sepsis, clinically improving, WBC now normal. Cultures pending. Blood now ok, did receive midodrine in ED. Continue Ceftriaxone #Hypotension- d/t above, resolved following iVF and midodrine # obstructive uropathy with urinary retention -likely multifactorial secondary to prostate enlargement as well as 5 mm obstructing stone at the left ureterovesical junction -Julio catheter -urology assessment is pendding # acute kidney injury, Creatinine is trending in the right direction, continue monitoring and if not improving IVF # paroxysmal atrial fibrillation with RVR, reate still not control, continue metoprolol, continue coumadin. Seen by cardiology and if not improving, will add digoxin # stage II decubitus ulcer buttock -barrier cream, pressure dressings -turn and position -strategy specialist consult # cutaneous candidiasis -nystatin powder # insulin-dependent type 2 diabetes- controlled -POC glucose, diabetic diet -patient uses insulin pump at home, continue -hold metformin # CAD -continue dapt, bb, Coumadin #HFpEF -no acute exacerbation, euvolemic appearing on exam -continue p.o. Lasix # BPH -continue finasteride, Flomax DVT prophylaxis-Coumadin Full code need for inpatient: given ongoing sepsis with borderline hypotension, uncontrolled afib that need med adjsutement and continuous cardiac moniting pt needs inpatient menagement. Quality Stroke Does the patient have a stroke diagnosis?: No VTE Prior VTE?: Yes VTE Risk Level:: Medical - moderate - high VTE Device Contraindication: Treatment Not Indicated VTE Drug Contraindication: N/A - Med Ordered
--- NOTE | 2023-03-25 08:39 | PC.NURSE ---
dr. Eastman at bedside to see pt
[2023-03-25 08:51] LABS: Glucose, Whole Blood 189 mg/dL (60-115)
--- NOTE | 2023-03-25 09:40 | PM.CNCAR ---
History of Present Illness History of Present Illness Date of Service: 03/25/23 Chief complaint: Obstructive Uropathy, UTI, Severe Sepsis Narrative: This is a cardiology consultation regarding atrial fibrillation and rapid rate. Patient with many comorbidities including obesity, diabetes, coronary disease status post PCI this November, persistent atrial fibrillation, history of DVT, chronic venous stasis presents to the hospital from the PCP's office because of hypotension. Apparently, blood pressure was very low and recorded number is 55/38 mm Hg. There was some confusion, lethargy, tiredness. It appears that blood pressure medications have been stopped but not clear what the exact ER. He has also had a Julio catheter in place for about a month. He was also fairly put on finasteride at that time. There is some recurrence of urinary retention with limited output. Any case, because of the constellation of the symptoms above he has been admitted. From the cardiac he does not feel any palpitations at all. In fact currently the heart rate is around 120/Min in atrial fibrillation but he states he does not feel anything. Denies any other complaints like chest pain or shortness of breath. Overall, absolutely no symptoms from cardiac. Review of Systems Review of Systems: Yes all other systems are reviewed and are negative Constitutional: Constitutional: Reports as per HPI, Reports no additional constitutional complaints and Reports fatigue Eyes: Eyes: Reports as per HPI and Denies no additional eye complaints ENT: Denies system reviewed and no additional complaints, except as documented and Reports as per HPI Cardiovascular: Cardiovascular: Reports as per HPI, Reports no additional cardiovascular complaints, Denies acrocyanosis, Denies cool extremities, Denies chest pain, Denies leg edema, Denies lightheadedness, Denies palpitations and Denies dyspnea Respiratory: Respiratory: Reports as per HPI, Denies no additional respiratory complaints and Denies dyspnea Gastrointestinal: Gastrointestinal: Reports as per HPI and Denies no additional gastrointestinal complaints Genitourinary: Genitourinary: Reports no additional male genitourinary complaints and Reports as per HPI Musculoskeletal: Musculoskeletal: Reports no additional musculoskeletal complaints and Reports as per HPI Integumentary/Breasts: Skin/Breast: Reports system reviewed and no additional complaints, except as docu Neurologic: Reports system reviewed and no additional complaints, except as documented and Reports as per HPI Psychiatric: Psychiatric: Reports no additional psychiatric complaints and Reports as per HPI Endocrine: Endocrine: Reports no additional endocrine complaints, Reports as per HPI, Reports fatigue and Denies palpitations Hematologic/Lymphatic: Hematologic/Lymphatic: Reports no additional hematologic/lymphatic complaints and Reports as per HPI Allergic/Immunologic: Allergic/Immunologic: Reports no additional allergic/immunologic complaints and Reports as per HPI [facility] Past Medical History Medical History BPH (benign prostatic hyperplasia) Chronic venous stasis dermatitis GERD (gastroesophageal reflux disease) CAD (coronary artery disease) Type 2 diabetes mellitus (HFpEF) heart failure with preserved ejection fraction Atrial fibrillation Family History Family History Father Kidney cancer, primary, with metastasis from kidney to other site Heart disease Surgical History Surgical History Status post percutaneous transluminal angioplasty ([employer]) with stent placement Social History Social History Household Members: Significant Other Housing: House Alcohol intake: never Patient Tobacco Use Status: Never used Tobacco Second Hand Smoke Exposure: No Use of substances other than those prescribed or required for medical reasons: No Advance Directives: Yes Advance Directives on File: Yes Advance Directives Date on File: 02/13/23 Nutrition Risks: No Nutritional Risk service: No Meds Allergies Allergy/AdvReac Type Severity Reaction Status Date / Time peanut [PEANUTS] Allergy Unknown UNK Verified 03/22/23 09:49 wool [WOOL] Allergy Unknown UNK Verified 03/22/23 09:49 peanuts Allergy Unknown hives Uncoded 03/22/23 09:49 Active Medications: Current Medications Acetaminophen (Acetaminophen 325 Mg Tablet) 650 mg PO Q6H PRN PRN Reason: Pain, Mild (Pain Scale 1-3) Atorvastatin Calcium (Atorvastatin Calcium 40 Mg Tablet) 40 mg PO BEDTIME [facility] Clopidogrel Bisulfate (Clopidogrel Bisulfate 75 Mg Tablet) 75 mg PO DAILY [facility] Finasteride (Finasteride 5 Mg Tablet) 5 mg PO DAILY@1200 [facility] Folic Acid (Folic Acid 1 Mg Tablet) 1 mg PO DAILY@1200 [facility] Furosemide (Furosemide 20 Mg Tablet) 20 mg PO DAILY [facility]; Protocol Ceftriaxone Sodium 1 gm/ (Sodium Chloride) 50 mls @ 100 mls/hr IV Q24H [facility] Insulin Human Lispro (Insulin Lispro 100 Unit/Ml 3 Ml Vial) 0 unit SUBCUT .COMPLEX [facility] Insulin Pump (Subcutaneous Insulin Pump) 1 each SUBCUT QIDACHS [facility]; Protocol Lactic Acid (Ammonium Lactate 12 % Cream 140 Gm Tube) 1 appl TOPICAL DAILY PRN; Protocol PRN Reason: Wound Care Magnesium Oxide (Magnesium Oxide 400 Mg Tablet) [facility] Melatonin (Melatonin 3 Mg Tablet) 3 mg PO BEDTIME PRN PRN Reason: Insomnia Metoprolol Tartrate (Metoprolol Tartrate 25 Mg Tablet) 75 mg PO BID@0900,1700 [facility]; Protocol Nystatin (Nystatin Powder 15 Gm Bottle) 1 appl TOPICAL BID [facility]; Protocol Ondansetron HCl (Ondansetron Hcl 4 Mg/2 Ml Vial) 4 mg IVPUSH Q8H PRN PRN Reason: Nausea and Vomiting Senna (Sennosides 8.6 Mg Tablet) 17.2 mg PO BEDTIME PRN PRN Reason: Constipation Silver Sulfadiazine (Silver Sulfadiazine 1 % Cream 20 Gm Tube) 1 appl TOPICAL DAILY PRN PRN Reason: Wound Care Sodium Chloride (0.9 % Sodium Chloride Flush 3 Ml Syringe) 3 ml IVFLUSH QSHIFT [facility] Last Admin: 03/25/23 00:36 Dose: 3 ml Tamsulosin HCl (Tamsulosin Hcl 0.4 Mg Capsule) 0.4 mg PO DAILY@1730 [facility] Warfarin Sodium (Warfarin Sodium 2.5 Mg Tablet) 2.5 mg PO MOWEFRSA@1800 [facility] Warfarin Sodium (Warfarin Sodium 5 Mg Tablet) 5 mg PO SUTUTH@1800 [facility] Home Medications Medication Instructions Recorded Confirmed Last Taken Type atorvastatin 40 mg tablet 40 mg PO BEDTIME 09/03/22 03/24/23 03/23/23 History metformin 1,000 mg tablet 1,000 mg PO BID@1200,2100 09/03/22 03/24/23 03/23/23 History dulaglutide 1.5 mg/0.5 mL 1.5 mg subcut TH@0900 09/04/22 03/24/23 02/20/23 History subcutaneous pen injector (Trulicity) folic acid 1 mg tablet 1 mg PO DAILY@1200 09/04/22 03/24/23 03/23/23 History insulin lispro 100 unit/mL See Rx Instructions .Route .COMPLEX 09/04/22 03/24/23 03/24/23 History subcutaneous solution (Humalog U-100 Insulin) warfarin 5 mg tablet 2.5 mg PO MOWEFRSA@1800 09/04/22 03/24/23 03/22/23 History clopidogrel 75 mg tablet 75 mg PO DAILY 01/06/23 03/24/23 03/24/23 History flash glucose scanning reader #1 ea 01/06/23 Unknown History (FreeStyle Pat 2 [place]) flash glucose sensor (FreeStyle #1 ea 01/06/23 Unknown History Pat 2 Sensor kit) ammonium lactate 12 % topical cream 1 appl topical DAILY PRN Wound Care 02/12/23 03/24/23 Unknown History silver sulfadiazine 1 % topical 1 appl topical DAILY PRN Wound Care 02/12/23 03/24/23 Unknown History cream sub-q insulin device, 20 unit 02/12/23 02/12/23 03/24/23 History (V-GO 20 device) warfarin 5 mg tablet 5 mg PO SUTUTH@1800 02/12/23 03/24/23 03/23/23 History finasteride 5 mg tablet 5 mg PO DAILY@1200 03/24/23 03/24/23 03/23/23 History metoprolol tartrate 75 mg tablet 75 mg PO BID@0900,1700 03/24/23 03/24/23 03/24/23 History Physical Exam Vital Signs: Vital Signs: Last Vital Signs Temp 97.6 F 03/25/23 07:49 Pulse 122 H 03/25/23 07:49 Resp 16 03/25/23 07:49 BP 106/50 L 03/25/23 07:49 Pulse Ox 94 03/25/23 07:49 O2 Del Method Nasal Cannula 03/25/23 07:49 O2 Flow Rate 3 03/25/23 07:49 BMI result Body Mass Index 31.8 Const: General: comfortable and no acute distress Orientation/consciousness: patient oriented x3 HEENT: Other: Unremarkable Head: Yes normal to inspection Neck: Neck: Yes normal visual inspection Chest: Chest palpation & inspection: normal inspection of the chest Resp: Auscultation: clear to auscultation bilaterally Cardio: Palpation: normal PMI Heart sounds: S1 normal heart sound present, S2 normal heart sound present, no gallops, no murmurs and no rubs GI: Palpation (GI): Soft to palpation Back/Spine/Pelvis: Other: unremarkable Skin: General skin exam: no rashes or lesions noted Neuro: General: patient oriented x3 Extrem: Other: Chronic changes General: Yes normal to inspection Psych: Mental Status: mental status grossly normal Objective Labs and Meds 03/25/23 05:13 03/25/23 05:12 Lab results: Laboratory Results - last 24 hr 03/24/23 03/24/23 03/24/23 13:38 18:03 20:52 WBC 16.5 H RBC 5.27 Hgb 11.9 L Hct 39.5 L MCV 75.0 L MCH 22.6 L MCHC 30.1 L RDW 20.8 H Plt Count 227 D MPV 9.4 Immature Gran % (Auto) 0.8 H Neut % (Auto) 86.1 H Lymph % (Auto) 4.0 L [place] % (Auto) 8.8 Eos % (Auto) 0.1 Baso % (Auto) 0.2 Lymph # (Auto) 0.7 L [place] # (Auto) 1.5 H Eos # (Auto) 0.0 Baso # (Auto) 0.0 Abs Immat Gran (auto) 0.13 H Absolute Neuts (auto) 14.2 H Absolute Nucleated RBC 0.000 Nucleated RBC % (auto) 0.0 PT 30.5 H D INR 2.5 H APTT 37.6 H Sodium 133 L Potassium 5.2 H Chloride 103 Carbon Dioxide 22 Anion Gap 13 BUN 63 H Creatinine 2.20 H Estim Creat Clear Calc 43.9 Estimated GFR 30 POC Glucose Random Glucose 137 H Lactic Acid 1.8 Calcium 9.5 Magnesium 2.1 Total Bilirubin 1.6 H Direct Bilirubin 0.7 H AST 14 ALT 11 Alkaline Phosphatase 79 Troponin I High Sens < 2.7 Total Protein 7.5 Albumin 3.3 L Lipase 74 Urine Color Yellow Urine Appearance Turbid Urine pH 5.5 Ur Specific [place] 1.025 Urine Protein 30 (1+) H Urine Glucose (UA) Negative Urine Ketones Trace Urine Blood Moderate (2+) H Urine Nitrite Negative Ur Leukocyte Esterase Large (3+) H Urine RBC >20 H Urine WBC >50 H Ur Squamous Epith Cells 6-10 Urine Bacteria 3+ Hyaline Casts 6-10 Influenza Type A (PCR) NEGATIVE Influenza Type B (PCR) NEGATIVE RSV RNA Qual (PCR) NEGATIVE SARS-CoV-2 RNA (RT-PCR) NEGATIVE Blood Type AB Positive Antibody Screen NEGATIVE 03/25/23 03/25/23 03/25/23 05:12 05:13 08:48 WBC 9.8 RBC 4.69 Hgb 10.7 L Hct 35.4 L MCV 75.5 L MCH 22.8 L MCHC 30.2 L RDW 20.5 H Plt Count 191 MPV 9.5 Immature Gran % (Auto) 0.7 H Neut % (Auto) 82.2 H Lymph % (Auto) 5.7 L [place] % (Auto) 10.8 Eos % (Auto) 0.5 Baso % (Auto) 0.1 Lymph # (Auto) 0.6 L [place] # (Auto) 1.1 Eos # (Auto) 0.1 Baso # (Auto) 0.0 Abs Immat Gran (auto) 0.07 H Absolute Neuts (auto) 8.0 Absolute Nucleated RBC 0.000 Nucleated RBC % (auto) 0.0 PT 38.0 H D INR 3.1 H APTT Sodium 137 Potassium 4.7 Chloride 108 Carbon Dioxide 24 Anion Gap 10 L BUN 56 H Creatinine 1.49 H Estim Creat Clear Calc 64.8 Estimated GFR 47 POC Glucose 189 H Random Glucose 144 H Lactic Acid Calcium 8.5 D Magnesium Total Bilirubin Direct Bilirubin AST ALT Alkaline Phosphatase Troponin I High Sens Total Protein Albumin Lipase Urine Color Urine Appearance Urine pH Ur Specific [place] Urine Protein Urine Glucose (UA) Urine Ketones Urine Blood Urine Nitrite Ur Leukocyte Esterase Urine RBC Urine WBC Ur Squamous Epith Cells Urine Bacteria Hyaline Casts Influenza Type A (PCR) Influenza Type B (PCR) RSV RNA Qual (PCR) SARS-CoV-2 RNA (RT-PCR) Blood Type Antibody Screen ECG Interpretation: EKG with atrial fibrillation rate of 117/Min. PVC versus aberrant conduction. Nonspecific ST-T changes. EKGs from January are also showing something similar. Imaging Radiologist's impression: Impressions Abdomen/Pelvis CT 03/24/23 16:57 IMPRESSION: 1. There is a 5 mm calcification at the left ureteropelvic junction with mild left-sided hydronephrosis and hydroureter. 2. There is asymmetric perinephric stranding on the right with subtle heterogeneity to the lower pole collecting system. This is difficult to define further on this noncontrast CT scan. This could represent adjacent small cysts but difficult to define further on this noncontrast study. Pyelonephritis cannot be entirely excluded but would be considered less likely when compared to the 2018 CT scan 3. The prostate is enlarged and ill-defined and correlation with urinalysis recommended to exclude prostatitis. 4. Chronic appearing changes in the lungs as described above. 5. Tiny bubble of air in the bladder lumen. This could be related to recent intervention however underlying infectious etiology could have a similar appearance and clinical correlation with urinalysis would be recommended. Chest CT 03/24/23 16:57 IMPRESSION: 1. There is a 5 mm calcification at the left ureteropelvic junction with mild left-sided hydronephrosis and hydroureter. 2. There is asymmetric perinephric stranding on the right with subtle heterogeneity to the lower pole collecting system. This is difficult to define further on this noncontrast CT scan. This could represent adjacent small cysts but difficult to define further on this noncontrast study. Pyelonephritis cannot be entirely excluded but would be considered less likely when compared to the 2018 CT scan 3. The prostate is enlarged and ill-defined and correlation with urinalysis recommended to exclude prostatitis. 4. Chronic appearing changes in the lungs as described above. 5. Tiny bubble of air in the bladder lumen. This could be related to recent intervention however underlying infectious etiology could have a similar appearance and clinical correlation with urinalysis would be recommended. Assessment and Plan (1) Atrial fibrillation with RVR: Status: Acute (2) Hypotension: Status: Acute (3) Obstructive uropathy: Status: Acute (4) ELMIRA (acute kidney injury): Status: Acute Plan Cardiac studies reviewed. Cardiac catheterization from November shows she is 90% stenosis in the proximal 1st diagonal status post PCI. Otherwise no significant CAD. Recent echocardiogram with LVEF of 55-60% with moderate left ventricle hypertrophy. Moderate left atrial enlargement. Otherwise unremarkable. Labs show abnormal kidney function but baseline seems within normal range. Troponins unremarkable. Overall, suspected obstructive uropathy, urinary retention/sepsis and secondary atrial fibrillation rapid rate. Currently listed to be on metoprolol 75 mg b.i.d.. May continue that. Anticoagulation without changes. With treatment of infection/fluid resuscitation, renal function will hopefully improve and heart rate will also come down. If not, probably add digoxin presuming kidney function improves. Other medications like Proscar and Flomax can also low blood pressure and may have to be addressed. Discussed with Dr. Ibarra. Discussed with significant other at the bedside. They had a lot of questions and tried to answer them as much able. Advised him that we should take 1 thing at a time and management plan may change as new information bradshaw and we have to accordingly modify the plan. Not clear how much they are convinced but tried my best to explain. Will also request old records from [facility]. Procedures Date of Service Date of Service: 03/25/23
[2023-03-25] MEDS: Metoprolol Tartrate 25 MG TABLET 75 MG PO ×2 (10:39→17:46)
[2023-03-25] MEDS: Magnesium Oxide 400 MG TABLET PO ×2 (10:40→17:47)
[2023-03-25] MEDS: Furosemide 20 MG TABLET PO (10:40)
[2023-03-25] MEDS: Clopidogrel Bisulfate 75 MG TABLET PO (10:40)
[2023-03-25] MEDS: Nystatin Powder 15 GM BOTTLE 1 APPL TOPICAL ×2 (10:40→22:59)
--- NOTE | 2023-03-25 12:13 | MHC.CM.PN ---
Patient was unavailable; CM spoke with Domestic Partner/of 30 years/HCP/Ruchi @ [phone] and addressed IMM with her (original will be mailed certified mail to Ruchi and a copy place on the chart). 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 Home/self care is the goal and CM has initiated and will follow for dc planning. HCP is on file and the PCP is Dr. Gaytan.
[2023-03-25 13:24] LABS: Glucose, Whole Blood 129 mg/dL (60-115)
[2023-03-25] MEDS: Folic Acid 1 MG TABLET PO (14:05)
[2023-03-25] MEDS: Finasteride 5 MG TABLET PO (14:05)
[2023-03-25] MEDS: Warfarin Sodium 5 MG TABLET PO (17:46)
[2023-03-25 20:38] LABS: Glucose, Whole Blood 167 mg/dL (60-115)
[2023-03-25] MEDS: Subcutaneous Insulin Pump 1 EACH SUBCUT (21:13)
[2023-03-25] MEDS: Melatonin 3 MG TABLET PO (22:58)
[2023-03-25] MEDS: Atorvastatin Calcium 40 MG TABLET PO (22:58)
[2023-03-25] MEDS: cefTRIAXone sodium 1 GM in 0.9 % Sodium Chloride 50 ML IV (22:59)
[2023-03-26] VITALS (10 sets, daily range): BP systolic 102–134; BP diastolic 56–75; PULSE 81–126; RESP 18–20; TEMP 36.1–37.3; O2SAT 93–97; BMI 32.4
[2023-03-26 07:42] LABS: Glucose, Whole Blood 123 mg/dL (60-115)
[2023-03-26 07:49] LABS: INTERNATIONAL NORM RATIO 3.3 (0.9-1.1); Prothrombin Time 40.8 SEC (11.1-13.3)
[2023-03-26 08:00] LABS: Anion Gap 11 (12-20); Blood Urea Nitrogen 37 mg/dL (9-16); Calcium 8.7 mg/dL (8.4-10.2); Carbon Dioxide 21 mmol/L (22-29); Chloride 110 mmol/L (96-108); Creatinine Clr Calc Pharmacy 107.3; Estimated Glomerular Filt Rate > 60; Glucose Random 129 mg/dL (60-115); Sodium 137 mmol/L (135-145)
[2023-03-26] MEDS: Clopidogrel Bisulfate 75 MG TABLET PO (09:24)
[2023-03-26] MEDS: Furosemide 20 MG TABLET PO (09:24)
[2023-03-26] MEDS: 0.9 % Sodium Chloride Flush 3 ML SYRINGE IVFLUSH ×2 (09:24→14:58)
[2023-03-26] MEDS: Magnesium Oxide 400 MG TABLET PO ×2 (09:24→16:58)
[2023-03-26] MEDS: Metoprolol Tartrate 25 MG TABLET 75 MG PO ×2 (09:24→16:58)
[2023-03-26] MEDS: Digoxin 0.5 MG/2 ML AMPUL 0.25 MG IVPUSH ×2 (09:25→14:52)
[2023-03-26] MEDS: Nystatin Powder 15 GM BOTTLE 1 APPL TOPICAL ×2 (09:25→21:21)
--- NOTE | 2023-03-26 10:14 | PM.PNCARD ---
Subjective Subjective Date of Service: 03/26/23 Interval history: Patient states that he is doing okay. No clear cardiac symptoms. Review of Systems Review of Systems Yes all other systems are reviewed and are negative Constitutional: Reports as per HPI and Reports no additional constitutional complaints Eyes: Reports as per HPI and Denies no additional eye complaints Denies system reviewed and no additional complaints, except as documented and Reports as per HPI Cardiovascular: Reports as per HPI, Reports no additional cardiovascular complaints, Denies acrocyanosis, Denies cool extremities, Denies chest pain, Denies leg edema, Denies lightheadedness, Denies palpitations and Denies dyspnea Respiratory: Reports as per HPI, Denies no additional respiratory complaints and Denies dyspnea Gastrointestinal: Reports as per HPI and Denies no additional gastrointestinal complaints Genitourinary: Reports no additional male genitourinary complaints and Reports as per HPI Musculoskeletal: Reports no additional musculoskeletal complaints and Reports as per HPI Skin/Breast: Reports system reviewed and no additional complaints, except as docu Reports system reviewed and no additional complaints, except as documented and Reports as per HPI Psychiatric: Reports no additional psychiatric complaints and Reports as per HPI Endocrine: Reports no additional endocrine complaints, Reports as per HPI and Denies palpitations Hematologic/Lymphatic: Reports no additional hematologic/lymphatic complaints and Reports as per HPI Allergic/Immunologic: Reports no additional allergic/immunologic complaints and Reports as per HPI Physical Exam Vital Signs: Last Vital Signs Temp 97.6 F 03/26/23 07:37 Pulse 110 H 03/26/23 09:46 Resp 20 03/26/23 07:37 BP 115/67 03/26/23 09:20 Pulse Ox 97 03/26/23 07:37 O2 Del Method Nasal Cannula 03/26/23 07:37 O2 Flow Rate 2 03/26/23 07:37 BMI result Body Mass Index 32.4 Const General: comfortable and no acute distress Orientation/consciousness: patient oriented x3 HEENT Other: Unremarkable Head: Yes normal to inspection Neck Neck: Yes normal visual inspection Chest Chest palpation & inspection: normal inspection of the chest Resp Auscultation: clear to auscultation bilaterally Cardio Palpation: normal PMI Heart sounds: S1 normal heart sound present, S2 normal heart sound present, no gallops, no murmurs and no rubs GI Palpation (GI): Soft to palpation Back/Spine/Pelvis Other: unremarkable Skin General skin exam: no rashes or lesions noted Neuro General: patient oriented x3 Extrem General: Yes normal to inspection Psych Mental Status: mental status grossly normal Objective Labs and Meds 03/25/23 05:13 03/26/23 07:23 Lab results: Laboratory Results - last 24 hr 03/25/23 03/25/23 03/26/23 13:14 19:57 07:23 PT 40.8 H INR 3.3 H Sodium 137 Potassium 5.0 Chloride 110 H Carbon Dioxide 21 L Anion Gap 11 L BUN 37 H Creatinine 0.91 Estim Creat Clear Calc 107.3 Estimated GFR > 60 POC Glucose 129 H 167 H Random Glucose 129 H Calcium 8.7 03/26/23 07:39 PT INR Sodium Potassium Chloride Carbon Dioxide Anion Gap BUN Creatinine Estim Creat Clear Calc Estimated GFR POC Glucose 123 H Random Glucose Calcium Progress Note: A&P Assessment and plan (1) Atrial fibrillation with RVR: Status: Acute (2) Obstructive uropathy: Status: Acute Plan Records from [facility] Cardiology reviewed. Prior office note as well as other information noted. At this time, atrial fibrillation still on the faster side. Of note, on the Holter his average rate was 95/Min and hence even at baseline does not seem fully regulated. He is already on beta-blockers at baseline and we can add back the digoxin that he was also on. Anticoagulation. Hopefully once infection/urology issues get addressed the heart rate should slow down. Otherwise home blood pressure seems better. Time Spent With Patient Time: Total time managing care of this patient today ____ minutes. Progress Note: Quality Stroke Does the patient have a stroke diagnosis?: No Procedures Date of Service Date of Service: 03/26/23
[2023-03-26 11:35] LABS: Glucose, Whole Blood 170 mg/dL (60-115)
--- NOTE | 2023-03-26 11:43 | HO.WOUND ---
Wound Consult: Initial 72yr old male admitted to [facility] on 03/24/23 23:18? - See progress notes and H&P for detailed history. Wound consult placed for buttocks, bilateral heels, lower legs assessment. Pt is known to this bond underwriter from previous admission and assessments - he is agreeable to assessment today and photo documentation. Pt reports he has treated at various wound clinics in the past and uses over the counter compression therapy at times. He reports he has used prescribed compression in the distant past but is unable to find a provider to aid in him getting personalized compression therapy. The pt will benefit from wound clinic follow up once discharged or with [facility] clinic for leg edema management. We talked about routine bathing and the benefits to his thick scaled lower legs and the benefits of daily moisturizers. He reports understanding and is agreeable to daily dressing changes while inpatient. Right Foot Bilateral Legs Prior to cleansing Bilateral Lower Legs Post cleansing Right Leg and foot Etiology: Venous Dermatitis Wounds Measurements: various dry scabbed wound beds in various stages - measuring less than 2cm Wound Bed: Dry scabbed red with scattered areas of yellow adherent slough Drainage / Odor: No odor and no drainage noted Edges: ? irregular and attached Loyda wound: ? Thick scaling flaking tissue removed with washing revealing intact tissue, hemosiderin staining No Induration, No Fluctuance, No Erythema noted Pain: denies pain Goals of Treatment: ? Elevate lower legs off of bed surface - Moist wound healing with xeroform and vaseline - refer to out pt wound clinic and [facility] specialist Left Leg Etiology: Venous Dermatitis Wounds Measurements: various dry scabbed wound beds in various stages - measuring less than 2cm Wound Bed: dries wound beds Drainage / Odor: No odor no drainage noted Edges: ? irregular and attached Loyda wound: Thick scaling flaking tissue removed with washing revealing intact tissue, hemosiderin staining No Induration, No Fluctuance, No Erythema noted Pain: denies pain Goals of Treatment: Elevate lower legs off of bed surface - Moist wound healing with xeroform and vaseline Right Buttocks Etiology: Stage 2 Pressure Injury POA Measurements: 2cm x 2cm x 0.1cm Wound Bed: appears to be resolving with scattered areas of red dry and moist tissue with friction observed Drainage / Odor: None noted Edges: ? irregular Loyda wound: MASD (Moisture Associated Skin Damage)- Blanchable red tissue ? No Induration, Fluctuance or Warmth noted Pain: denies Goals of Treatment: ? Off Load Pressure and protect from moisture and friction with Triad Bilateral Heels assessed and remains blanchable and intact - off loaded in boots for protection. Skin folds assessed for MASD and Fungal Dermatitis - yeast odor detected - Nystatin powder in place per providers. Recommendations: 1. Turn and Reposition every 2 hours and as needed for patient comfort. 2. Off Load all bony prominences with use of pillows and heel boots if needed.? Apply Preventative foams where needed. ? 3. Monitor for incontinence and moisture control, use barrier creams when needed for prevention and treatment. 4. Provide adequate and supplemental nutrition. 5. Continue low air loss mattress. 6.Bilateral Lower Legs - Elevate Lower Legs - Cleanse with normal saline and pat dry. ?Apply barrier cream to loyda-wound, cover wound beds with cut to size Xeroform, cover with ABD pads, Gauze roll. Change Daily. Refer to outpt wound clinic for outpatient treatment. 7. Buttocks - Off Load Pressure - Cleanse with PH balance spray, pat dry. ?Apply thin layer of Triad to wound bed - only pat and dab no scrub and rub when soiling occurs. Reapply thin layer PRN after each episode of incontinence. Re-consult wound care Nurse for wound deterioration or wound changes.
[2023-03-26] MEDS: Finasteride 5 MG TABLET PO (11:48)
[2023-03-26] MEDS: Folic Acid 1 MG TABLET PO (11:48)
--- NOTE | 2023-03-26 12:27 | MHC.CLN ---
RE: CONSULT PT WITH INCREASED NUTRITION RISK R/T PRESSURE INJURY DIET RX: 2000 DM CARDIAC-RECOMMEND INCREASING 2200DM DIET TO MEET ESTIMATED KCAL NEEDS RECOMMEND ADDING ENSURE MAX BID TO PROMOTE WOUND HEALING SUPP PROVIDES 300KCALS, 60G PROTEIN MONITOR PO INTAKE AND ENCOURAGE SUPPLEMENT SEE ALSO FULL CLINICAL NUTRITION ASSESSMENT
--- NOTE | 2023-03-26 12:37 | MHC.CM.PN ---
EMR REVIEWED, PT W/SEVERE SEPSI/UTI/OBSTRUCTIVE UROPATHY, BLOOD AND URINE CULTURES PENDING, ANTIC PT WILL DC HOME W/SERVICES ONCE MEDICALLY CLEARED.
--- NOTE | 2023-03-26 12:46 | P.PNIM_ITS ---
Subjective Subjective Date of Service: 03/26/23 Interval History: f/u on Uti, sepsis, afib with rivr. HR remained high this morning and started on digoxin load. Hypotension resolved, no fever, but c/o some burning with folety cather hypotension resolved, no fever or chills. HR remains high Physical Exam 2 Vital Signs: Vital Signs: Last Vital Signs Temp 98.1 F 03/26/23 11:11 Pulse 98 03/26/23 11:11 Resp 20 03/26/23 11:11 BP 102/56 L 03/26/23 11:11 Pulse Ox 96 03/26/23 11:11 O2 Del Method Room Air 03/26/23 11:11 O2 Flow Rate 2 03/26/23 07:37 BMI result Body Mass Index 32.4 Const: Other: General: AO X 3, no acute distress Resp: CTA bilateral CVS: S1,S2,RRR GI: +BS, NT, no distention, No CVA tenderness Skin: No rash, partial thickness decubitus ulcer the buttock bilaterally. Chronic venous stasis changes to the bilateral lower extremities Neuro: motor grossly intact Psych: appropriate affect Objective Data Active Medications Acetaminophen (Acetaminophen 325 Mg Tablet) 650 mg PO Q6H PRN PRN Reason: Pain, Mild (Pain Scale 1-3) Atorvastatin Calcium (Atorvastatin Calcium 40 Mg Tablet) 40 mg PO BEDTIME [facility] Last Admin: 03/25/23 22:58 Dose: 40 mg Documented By: JUANJO Clopidogrel Bisulfate (Clopidogrel Bisulfate 75 Mg Tablet) 75 mg PO DAILY [facility] Last Admin: 03/26/23 09:24 Dose: 75 mg Documented By: FIGUEROA Digoxin (Digoxin 0.5 Mg/2 Ml Ampul) 0.25 mg IVPUSH Q6H [facility] Stop: 03/26/23 14:31 Last Admin: 03/26/23 09:25 Dose: 0.25 mg Documented By: FIGUEROA Finasteride (Finasteride 5 Mg Tablet) 5 mg PO DAILY@1200 [facility] Last Admin: 03/26/23 11:48 Dose: 5 mg Documented By: FIGUEROA Folic Acid (Folic Acid 1 Mg Tablet) 1 mg PO DAILY@1200 [facility] Last Admin: 03/26/23 11:48 Dose: 1 mg Documented By: FIGUEROA Furosemide (Furosemide 20 Mg Tablet) 20 mg PO DAILY [facility]; Protocol Last Admin: 03/26/23 09:24 Dose: 20 mg Documented By: FIGUEROA Ceftriaxone Sodium 1 gm/ (Sodium Chloride) 50 mls @ 100 mls/hr IV Q24H [facility] Last Infusion: 03/25/23 23:30 Dose: Infused Documented By: JUANJO Insulin Pump (Subcutaneous Insulin Pump) 1 each SUBCUT QIDACHS [facility]; Protocol Last Admin: 03/26/23 11:51 Dose: Not Given Documented By: FIGUEROA Non-Admin Reason: pt own pump Lactic Acid (Ammonium Lactate 12 % Cream 140 Gm Tube) 1 appl TOPICAL DAILY PRN; Protocol PRN Reason: Wound Care Magnesium Oxide (Magnesium Oxide 400 Mg Tablet) 400 mg PO BIDPC [facility] Last Admin: 03/26/23 09:24 Dose: 400 mg Documented By: FIGUEROA Melatonin (Melatonin 3 Mg Tablet) 3 mg PO BEDTIME PRN PRN Reason: Insomnia Last Admin: 03/25/23 22:58 Dose: 3 mg Documented By: JUANJO Metoprolol Tartrate (Metoprolol Tartrate 25 Mg Tablet) 75 mg PO BID@0900,1700 [facility]; Protocol Last Admin: 03/26/23 09:24 Dose: 75 mg Documented By: FIGUEROA Nystatin (Nystatin Powder 15 Gm Bottle) 1 appl TOPICAL BID [facility]; Protocol Last Admin: 03/26/23 09:25 Dose: 1 appl Documented By: FIGUEROA Ondansetron HCl (Ondansetron Hcl 4 Mg/2 Ml Vial) 4 mg IVPUSH Q8H PRN PRN Reason: Nausea and Vomiting Senna (Sennosides 8.6 Mg Tablet) 17.2 mg PO BEDTIME PRN PRN Reason: Constipation Silver Sulfadiazine (Silver Sulfadiazine 1 % Cream 20 Gm Tube) 1 appl TOPICAL DAILY PRN PRN Reason: Wound Care Sodium Chloride (0.9 % Sodium Chloride Flush 3 Ml Syringe) 3 ml IVFLUSH QSHIFT [facility] Last Admin: 03/26/23 09:24 Dose: 3 ml Documented By: FIGUEROA Warfarin Sodium (Warfarin Sodium 2.5 Mg Tablet) 2.5 mg PO MOWEFRSA@1800 [facility] Warfarin Sodium (Warfarin Sodium 5 Mg Tablet) 5 mg PO SUTUTH@1800 [facility] Last Admin: 03/25/23 17:46 Dose: 5 mg Documented By: LUIS Labs 03/25/23 05:13 03/26/23 07:23 Labs: Laboratory Results - last 24 hr 03/25/23 03/25/23 03/26/23 13:14 19:57 07:23 PT 40.8 H INR 3.3 H Anion Gap 11 L Estim Creat Clear Calc 107.3 Estimated GFR > 60 POC Glucose 129 H 167 H Random Glucose 129 H Calcium 8.7 03/26/23 03/26/23 07:39 11:12 PT INR Anion Gap Estim Creat Clear Calc Estimated GFR POC Glucose 123 H 170 H Random Glucose Calcium Microbiology Microbiology Results: Microbiology 03/24/23 Unknown Urine Culture - Final Urine clean catch - Clean Catch Midstream 03/24/23 19:00 Blood Culture - Preliminary Blood - Venous No growth after 24 hours. 03/24/23 18:03 Blood Culture - Preliminary Blood - Venous No growth after 24 hours. Assessment and Plan (1) Atrial fibrillation with RVR: Status: Acute (2) Obstructive uropathy: Status: Acute (3) ELMIRA (acute kidney injury): Status: Acute (4) Sepsis: Status: Acute Plan 72-year-old male with well-controlled insulin-dependent type 2 diabetes, GERD, coronary artery disease s/p PCI with SELENE in 11/2022 on DAPT, HFpEF, paroxysmal atrial fibrillation, history of bilateral lower extremity DVT anticoagulated with Coumadin, chronic venous stasis dermatitis admitted for UTI with severe sepsis and obstructive uropathy with ELMIRA as well as atrial fibrillation with RVR # acute UTI with severe sepsis, sepsis resolved, cultures no growth. Continue Ceftriaxone started 03/24, oral ceftin at dc #Hypotension- d/t above, resolved following iVF and midodrine # obstructive uropathy with urinary retention, -likely multifactorial secondary to prostate enlargement as well as 5 mm obstructing stone at the left ureterovesical junction -Julio catheter -Dr. Eastman has seen him but has not documented a plan # acute kidney injury, resolved. Cr is now normal. # paroxysmal atrial fibrillation with RVR, rate still high, continue metoprolol, added digoxi # stage II decubitus ulcer buttock -barrier cream, pressure dressings -turn and position -impregnation operator consult # cutaneous candidiasis -nystatin powder # insulin-dependent type 2 diabetes- controlled -POC glucose, diabetic diet -patient uses insulin pump at home, and has elected to continue to use and manage his insulin via pump, we will check sugar level as usual and will intervene with discrepency in sugar level -hold metformin # CAD -continue dapt, bb, Coumadin #HFpEF -no acute exacerbation, euvolemic appearing on exam -continue p.o. Lasix # BPH -continue finasteride, Flomax DVT prophylaxis-Coumadin Full code need for inpatient: given ongoing sepsis with borderline hypotension, uncontrolled afib that need med adjsutement and continuous cardiac moniting pt needs inpatient menagement. PT eval befoore discharge Quality Stroke Does the patient have a stroke diagnosis?: No VTE Prior VTE?: Yes VTE Risk Level:: Medical - moderate - high VTE Device Contraindication: Treatment Not Indicated VTE Drug Contraindication: N/A - Med Ordered
--- NOTE | 2023-03-26 13:35 | MHC.CM.PN ---
EMR REVIEWED, PT EVAL REQUESTED, CM MET W/PT AND AT BEDSIDE PER REQUEST, PT AND WANTED TO DISCUSS OPTIONS FOR PHYSICAL THERAPY AND ARE AWARE PT WILL EVAL PT AND MAKE RECOMMENDATIONS, BASED ON THOSE REC'S OPTIONS COULD POTENTIALLY BE STR/HOME OR OUTPT, PT REPORTS HE DOESN NOT WANT STR BUT HE WILL BE AGREEABLE IF HE HAS TO, PT AND REQUESTED CM HOLD OFF ON REFERRALS UNTIL PT EVAL COMPLETE, CM WILL CON TO FOLLOW DC NEEDS.
[2023-03-26 16:35] LABS: Glucose, Whole Blood 82 mg/dL (60-115)
[2023-03-26] MEDS: Warfarin Sodium 2.5 MG TABLET PO (17:01)
[2023-03-26 20:44] LABS: Glucose, Whole Blood 153 mg/dL (60-115)
[2023-03-26] MEDS: Atorvastatin Calcium 40 MG TABLET PO (21:21)
[2023-03-26] MEDS: cefTRIAXone sodium 1 GM in 0.9 % Sodium Chloride 50 ML IV (21:21)
[2023-03-27 04:00] VITALS: BP 111/59; PULSE 119; RESP 20; TEMP 36.6; O2SAT 97
[2023-03-27 06:39] LABS: Hematocrit 37.8 % (42.0-52.0); Hemoglobin 11.6 g/dl (14.0-18.0); Mean Corpuscular HGB Conc 30.7 g/dl (31.0-36.0); Mean Corpuscular Hemoglobin 22.7 pg (27.0-33.0); Mean Corpuscular Volume 73.8 fL (80.0-98.0); Mean Platelet Volume 8.7 fL (9.4-12.4); Platelet Count 227 X10*3/uL (160-400); Red Blood Count 5.12 X10*6/uL (4.60-5.80); Red Cell Distribution Width 20.2 % (11.0-16.0); White Blood Count 9.5 X10*3/uL (4.8-10.8)
[2023-03-27 06:43] LABS: INTERNATIONAL NORM RATIO 3.3 (0.9-1.1); Prothrombin Time 39.9 SEC (11.1-13.3)
[2023-03-27 07:01] LABS: Anion Gap 12 (12-20); Blood Urea Nitrogen 23 mg/dL (9-16); Calcium 8.9 mg/dL (8.4-10.2); Carbon Dioxide 21 mmol/L (22-29); Chloride 109 mmol/L (96-108); Creatinine Clr Calc Pharmacy 126.8; Estimated Glomerular Filt Rate > 60; Glucose Random 128 mg/dL (60-115); Potassium 4.8 mmol/L (3.3-5.1); Sodium 137 mmol/L (135-145)
[2023-03-27 07:21] LABS: Glucose, Whole Blood 115 mg/dL (60-115)
[2023-03-27 07:32] VITALS: BP 102/65; PULSE 125; RESP 20; TEMP 36.4; O2SAT 98
[2023-03-27] MEDS: Magnesium Oxide 400 MG TABLET PO ×2 (08:06→17:21)
[2023-03-27] MEDS: Metoprolol Tartrate 25 MG TABLET 75 MG PO ×2 (08:06→17:21)
[2023-03-27] MEDS: Clopidogrel Bisulfate 75 MG TABLET PO (08:06)
[2023-03-27] MEDS: 0.9 % Sodium Chloride Flush 3 ML SYRINGE IVFLUSH ×2 (08:06→17:22)
[2023-03-27] MEDS: Furosemide 20 MG TABLET PO (08:06)
[2023-03-27] MEDS: Subcutaneous Insulin Pump 1 EACH SUBCUT ×3 (08:07→17:22)
[2023-03-27] MEDS: Nystatin Powder 15 GM BOTTLE 1 APPL TOPICAL ×2 (08:10→21:20)
[2023-03-27 10:57] LABS: Glucose, Whole Blood 233 mg/dL (60-115)
[2023-03-27 11:07] VITALS: BP 107/65; PULSE 104; RESP 20; TEMP 36.8; O2SAT 98
[2023-03-27] MEDS: Folic Acid 1 MG TABLET PO (12:12)
[2023-03-27] MEDS: Finasteride 5 MG TABLET PO (12:12)
--- NOTE | 2023-03-27 12:50 | HO.PM.IMPN ---
Subjective Subjective Date of Service: 03/27/23 Interval History: f/u on Uti, sepsis, afib with rivr. HR remained high this morning and started on digoxin load. Hypotension resolved, no fever, but c/o some burning with folety cather hypotension resolved, no fever or chills. HR remains high Physical Exam Vital Signs: Vital Signs: Last Vital Signs Temp 98.2 F 03/27/23 11:07 Pulse 104 H 03/27/23 11:07 Resp 20 03/27/23 11:07 BP 107/65 03/27/23 11:07 Pulse Ox 98 03/27/23 11:07 O2 Del Method Room Air 03/27/23 11:07 O2 Flow Rate 2 03/26/23 07:37 BMI result Body Mass Index 32.4 Const: Other: General: AO X 3, no acute distress Resp: CTA bilateral CVS: S1,S2,RRR GI: +BS, NT, no distention, No CVA tenderness Skin: No rash, partial thickness decubitus ulcer the buttock bilaterally. Chronic venous stasis changes to the bilateral lower extremities Neuro: motor grossly intact Psych: appropriate affect Objective Data Active Medications Acetaminophen (Acetaminophen 325 Mg Tablet) 650 mg PO Q6H PRN PRN Reason: Pain, Mild (Pain Scale 1-3) Atorvastatin Calcium (Atorvastatin Calcium 40 Mg Tablet) 40 mg PO BEDTIME [facility] Last Admin: 03/26/23 21:21 Dose: 40 mg Documented By: ABHINAV Clopidogrel Bisulfate (Clopidogrel Bisulfate 75 Mg Tablet) 75 mg PO DAILY [facility] Last Admin: 03/27/23 08:06 Dose: 75 mg Documented By: SOLO Finasteride (Finasteride 5 Mg Tablet) 5 mg PO DAILY@1200 [facility] Last Admin: 03/27/23 12:12 Dose: 5 mg Documented By: SOLO Folic Acid (Folic Acid 1 Mg Tablet) 1 mg PO DAILY@1200 [facility] Last Admin: 03/27/23 12:12 Dose: 1 mg Documented By: SOLO Furosemide (Furosemide 20 Mg Tablet) 20 mg PO DAILY [facility]; Protocol Last Admin: 03/27/23 08:06 Dose: 20 mg Documented By: SOLO Ceftriaxone Sodium 1 gm/ (Sodium Chloride) 50 mls @ 100 mls/hr IV Q24H [facility] Last Infusion: 03/26/23 21:59 Dose: Infused Documented By: ABHINAV Insulin Pump (Subcutaneous Insulin Pump) 1 each SUBCUT QIDACHS [facility]; Protocol Last Admin: 03/27/23 12:12 Dose: 1 each Documented By: SOLO Lactic Acid (Ammonium Lactate 12 % Cream 140 Gm Tube) 1 appl TOPICAL DAILY PRN; Protocol PRN Reason: Wound Care Magnesium Oxide (Magnesium Oxide 400 Mg Tablet) 400 mg PO BIDPC [facility] Last Admin: 03/27/23 08:06 Dose: 400 mg Documented By: SOLO Melatonin (Melatonin 3 Mg Tablet) 3 mg PO BEDTIME PRN PRN Reason: Insomnia Last Admin: 03/25/23 22:58 Dose: 3 mg Documented By: JUANJO Metoprolol Tartrate (Metoprolol Tartrate 25 Mg Tablet) 75 mg PO BID@0900,1700 [facility]; Protocol Last Admin: 03/27/23 08:06 Dose: 75 mg Documented By: SOLO Nystatin (Nystatin Powder 15 Gm Bottle) 1 appl TOPICAL BID [facility]; Protocol Last Admin: 03/27/23 08:10 Dose: 1 appl Documented By: SOLO Ondansetron HCl (Ondansetron Hcl 4 Mg/2 Ml Vial) 4 mg IVPUSH Q8H PRN PRN Reason: Nausea and Vomiting Senna (Sennosides 8.6 Mg Tablet) 17.2 mg PO BEDTIME PRN PRN Reason: Constipation Silver Sulfadiazine (Silver Sulfadiazine 1 % Cream 20 Gm Tube) 1 appl TOPICAL DAILY PRN PRN Reason: Wound Care Sodium Chloride (0.9 % Sodium Chloride Flush 3 Ml Syringe) 3 ml IVFLUSH QSHIFT [facility] Last Admin: 03/27/23 08:06 Dose: 3 ml Documented By: SOLO Warfarin Sodium (Warfarin Sodium 2.5 Mg Tablet) 2.5 mg PO MOWEFRSA@1800 [facility] Last Admin: 03/26/23 17:01 Dose: 2.5 mg Documented By: TRIP-ADAM Warfarin Sodium (Warfarin Sodium 5 Mg Tablet) 5 mg PO SUTUTH@1800 [facility] Last Admin: 03/25/23 17:46 Dose: 5 mg Documented By: FOSTEKR Labs 03/27/23 06:22 03/27/23 06:22 Labs: Laboratory Results - last 24 hr 12/06/23 12/06/23 12/07/23 16:27 20:40 06:22 MCV 73.8 L MCH 22.7 L MCHC 30.7 L RDW 20.2 H Plt Count 227 MPV 8.7 L Absolute Nucleated RBC 0.000 Nucleated RBC % (auto) 0.0 PT 39.9 H INR 3.3 H Anion Gap 12 Estim Creat Clear Calc 126.8 Estimated GFR > 60 POC Glucose 82 153 H Random Glucose 128 H Calcium 8.9 03/27/23 03/27/23 07:17 10:52 MCV MCH MCHC RDW Plt Count MPV Absolute Nucleated RBC Nucleated RBC % (auto) PT INR Anion Gap Estim Creat Clear Calc Estimated GFR POC Glucose 115 233 H Random Glucose Calcium Microbiology Microbiology Results: Microbiology 03/24/23 19:00 Blood Culture - Preliminary Blood - Venous No growth after 48 hours. 03/24/23 18:03 Blood Culture - Preliminary Blood - Venous No growth after 48 hours. 03/24/23 Unknown Urine Culture - Final Urine clean catch - Clean Catch Midstream Assessment and Plan (1) Hypotension: Status: Acute (2) Atrial fibrillation with RVR: Status: Acute (3) Obstructive uropathy: Status: Acute (4) ELMIRA (acute kidney injury): Status: Acute (5) Sepsis: Status: Acute Plan 72-year-old male with well-controlled insulin-dependent type 2 diabetes, GERD, coronary artery disease s/p PCI with SELENE in 11/2022 on DAPT, HFpEF, paroxysmal atrial fibrillation, history of bilateral lower extremity DVT anticoagulated with Coumadin, chronic venous stasis dermatitis admitted for UTI with severe sepsis and obstructive uropathy with ELMIRA as well as atrial fibrillation with RVR # acute UTI with severe sepsis, sepsis resolved, cultures no growth. Continue Ceftriaxone started 03/24, oral ceftin at dc x 10 days #Hypotension- d/t above, resolved following iVF and midodrine # obstructive uropathy with urinary retention, -likely multifactorial secondary to prostate enlargement as well as 5 mm obstructing stone at the left ureterovesical junction -Julio catheter and outpatient voiding trial -Dr. Eastman has seen him but has not documented a plan # acute kidney injury d/t obstructive uropathy, resolved. Cr is now normal. # Chronic afib with rvr, rate is better, continue metoprolol, and resume home dose of dig # stage II decubitus ulcer buttock -barrier cream, pressure dressings -turn and position -compugraph operator consult # cutaneous candidiasis -nystatin powder # insulin-dependent type 2 diabetes- controlled -POC glucose, diabetic diet -patient uses insulin pump at home, and has elected to continue to use and manage his insulin via pump, we will check sugar level as usual and will intervene with discrepency in sugar level -hold metformin # CAD -continue dapt, bb, Coumadin #HFpEF -no acute exacerbation, euvolemic appearing on exam -continue p.o. Lasix # BPH -continue finasteride, Flomax DVT prophylaxis-Coumadin Full code need for inpatient: given ongoing sepsis with borderline hypotension, uncontrolled afib that need med adjsutement and continuous cardiac moniting pt needs inpatient menagement. PT recommends STR, possibly by tomorrow Quality Stroke Does the patient have a stroke diagnosis?: No VTE Prior VTE?: Yes VTE Risk Level:: Medical - moderate - high VTE Device Contraindication: Treatment Not Indicated VTE Drug Contraindication: N/A - Med Ordered
[2023-03-27] MEDS: Digoxin 0.25 MG TABLET PO (13:10)
[2023-03-27 15:53] VITALS: BP 135/77; PULSE 111; RESP 20; TEMP 36.2; O2SAT 94
[2023-03-27 16:55] LABS: Glucose, Whole Blood 119 mg/dL (60-115)
[2023-03-27] MEDS: ondansetron HCL 4 MG/2 ML VIAL IVPUSH (17:20)
[2023-03-27 19:55] VITALS: BP 111/70; PULSE 100; RESP 20; TEMP 36.9; O2SAT 95
[2023-03-27 20:38] LABS: Glucose, Whole Blood 132 mg/dL (60-115)
[2023-03-27] MEDS: cefTRIAXone sodium 1 GM in 0.9 % Sodium Chloride 50 ML IV (20:54)
[2023-03-27] MEDS: Atorvastatin Calcium 40 MG TABLET PO (20:55)
[2023-03-27] MEDS: Melatonin 3 MG TABLET PO (20:55)
[2023-03-28] VITALS: BP 128/75; PULSE 112; RESP 18; TEMP 36.8; O2SAT 92
--- NOTE | 2023-03-28 01:31 | PC.NURSE ---
Acquired care from 1900. Pt is seated in a recliner. alert and oriented to person ,place and time. Calm and cooperative. sleepy. Afib on monitor. 2119 -pt had a 1.2 sec pause. MD notified. past midnight pt HR intermittently going up to 130s. notified.
[2023-03-28 04:00] VITALS: BP 120/72; PULSE 120; RESP 19; TEMP 37.3; O2SAT 94
[2023-03-28 07:11] LABS: Glucose, Whole Blood 120 mg/dL (60-115)
[2023-03-28 07:12] LABS: INTERNATIONAL NORM RATIO 2.5 (0.9-1.1); Prothrombin Time 30.9 SEC (11.1-13.3)
[2023-03-28 07:18] VITALS: BP 111/69; PULSE 122; RESP 20; TEMP 36.8; O2SAT 96
[2023-03-28] MEDS: Magnesium Oxide 400 MG TABLET PO ×2 (09:45→17:19)
[2023-03-28] MEDS: Clopidogrel Bisulfate 75 MG TABLET PO (09:45)
[2023-03-28] MEDS: Furosemide 20 MG TABLET PO (09:46)
[2023-03-28] MEDS: 0.9 % Sodium Chloride Flush 3 ML SYRINGE IVFLUSH ×3 (09:46→22:07)
[2023-03-28] MEDS: Digoxin 0.25 MG TABLET PO (09:46)
[2023-03-28 10:57] LABS: Glucose, Whole Blood 170 mg/dL (60-115)
[2023-03-28 11:02] VITALS: BP 121/64; PULSE 119; RESP 20; TEMP 37.2; O2SAT 96
--- NOTE | 2023-03-28 11:11 | MHC.CM.PN ---
EMR REVIEWED, PER HOSPITALIST PT NOT MEDICALLY CLEARED FOR DC, CM MET W/PT AND S.O. AT BEDSIDE TO DISCUSS DISPO P.T. RECOMMENDS STR, PT REPORTS HE IS STILL UNDECIDED HOWEVER IF HE DOES HE WILL NOT LEAVE [place], REFERRAL HAS BEEN PLACED, [facility] FOLLOWING IN CASE PT DECIDES TO GO HOME W/SERVICES, CM WILL CONT TO FOLLOW.
[2023-03-28] MEDS: Subcutaneous Insulin Pump 1 EACH SUBCUT ×3 (11:46→21:30)
[2023-03-28] MEDS: Nystatin Powder 15 GM BOTTLE 1 APPL TOPICAL ×2 (11:47→22:15)
[2023-03-28] MEDS: Folic Acid 1 MG TABLET PO (11:50)
[2023-03-28] MEDS: Finasteride 5 MG TABLET PO (11:50)
--- NOTE | 2023-03-28 12:23 | MHC.CLN ---
F/U PT WITH INCREASED NUTRITION RISK R/T PRESSURE INJURY PO INTAKE 75-100% DIET RX: 2200 DM CARDIAC-APPROPRIATE PT RECEIVING ENSURE MAX BID TO PROMOTE WOUND HEALING SUPP PROVIDES 300KCALS, 60G PROTEIN MONITOR PO INTAKE AND ENCOURAGE SUPPLEMENT
--- NOTE | 2023-03-28 13:38 | HO.PM.IMPN ---
Subjective Subjective Date of Service: 03/28/23 Interval History: f/u on Uti, sepsis, afib with rivr. HR remained high this morning and started on digoxin load. HR remains high, no new complaint, no hematuria Physical Exam Vital Signs: Vital Signs: Last Vital Signs Temp 98.9 F 03/28/23 11:02 Pulse 119 H 03/28/23 11:02 Resp 20 03/28/23 11:02 BP 121/64 03/28/23 11:02 Pulse Ox 96 03/28/23 11:02 O2 Del Method Room Air 03/28/23 11:02 O2 Flow Rate 2 03/26/23 07:37 BMI result Body Mass Index 32.4 Const: Other: General: AO X 3, no acute distress Resp: CTA bilateral CVS: S1,S2, iRiR GI: +BS, NT, no distention, No CVA tenderness Skin: No rash, partial thickness decubitus ulcer the buttock bilaterally. Chronic venous stasis changes to the bilateral lower extremities Neuro: motor grossly intact Psych: appropriate affect Objective Data Active Medications Acetaminophen (Acetaminophen 325 Mg Tablet) 650 mg PO Q6H PRN PRN Reason: Pain, Mild (Pain Scale 1-3) Atorvastatin Calcium (Atorvastatin Calcium 40 Mg Tablet) 40 mg PO BEDTIME [facility] Last Admin: 03/27/23 20:55 Dose: 40 mg Documented By: PAULINE Clopidogrel Bisulfate (Clopidogrel Bisulfate 75 Mg Tablet) 75 mg PO DAILY [facility] Last Admin: 03/28/23 09:45 Dose: 75 mg Documented By: LENCHO Digoxin (Digoxin 0.25 Mg Tablet) 0.25 mg PO DAILY [facility] Last Admin: 03/28/23 09:46 Dose: 0.25 mg Documented By: LENCHO Finasteride (Finasteride 5 Mg Tablet) 5 mg PO DAILY@1200 [facility] Last Admin: 03/28/23 11:50 Dose: 5 mg Documented By: LENCHO Folic Acid (Folic Acid 1 Mg Tablet) 1 mg PO DAILY@1200 [facility] Last Admin: 03/28/23 11:50 Dose: 1 mg Documented By: LENCHO Furosemide (Furosemide 20 Mg Tablet) 20 mg PO DAILY [facility]; Protocol Last Admin: 03/28/23 09:46 Dose: 20 mg Documented By: LENCHO Ceftriaxone Sodium 1 gm/ (Sodium Chloride) 50 mls @ 100 mls/hr IV Q24H [facility] Last Infusion: 03/27/23 21:51 Dose: Infused Documented By: PAULINE Insulin Pump (Subcutaneous Insulin Pump) 1 each SUBCUT QIDACHS [facility]; Protocol Last Admin: 03/28/23 11:47 Dose: 1 each Documented By: LENCHO Lactic Acid (Ammonium Lactate 12 % Cream 140 Gm Tube) 1 appl TOPICAL DAILY PRN; Protocol PRN Reason: Wound Care Magnesium Oxide (Magnesium Oxide 400 Mg Tablet) 400 mg PO BIDPC [facility] Last Admin: 03/28/23 09:45 Dose: 400 mg Documented By: LENCHO Melatonin (Melatonin 3 Mg Tablet) 3 mg PO BEDTIME PRN PRN Reason: Insomnia Last Admin: 03/27/23 20:55 Dose: 3 mg Documented By: PAULINE Metoprolol Tartrate (Metoprolol Tartrate 100 Mg Tablet) 100 mg PO BID@0900,1700 [facility]; Protocol Nystatin (Nystatin Powder 15 Gm Bottle) 1 appl TOPICAL BID [facility]; Protocol Last Admin: 03/28/23 11:47 Dose: 1 appl Documented By: LENCHO Ondansetron HCl (Ondansetron Hcl 4 Mg/2 Ml Vial) 4 mg IVPUSH Q8H PRN PRN Reason: Nausea and Vomiting Last Admin: 03/27/23 17:20 Dose: 4 mg Documented By: SOLO Senna (Sennosides 8.6 Mg Tablet) 17.2 mg PO BEDTIME PRN PRN Reason: Constipation Silver Sulfadiazine (Silver Sulfadiazine 1 % Cream 20 Gm Tube) 1 appl TOPICAL DAILY PRN PRN Reason: Wound Care Sodium Chloride (0.9 % Sodium Chloride Flush 3 Ml Syringe) 3 ml IVFLUSH QSHIFT [facility] Last Admin: 03/28/23 09:46 Dose: 3 ml Documented By: LENCHO Warfarin Sodium (Warfarin Sodium 2.5 Mg Tablet) 2.5 mg PO MOWEFRSA@1800 [facility] Last Admin: 03/26/23 17:01 Dose: 2.5 mg Documented By: TRIP-ADAM Warfarin Sodium (Warfarin Sodium 5 Mg Tablet) 5 mg PO SUTUTH@1800 [facility] Last Admin: 03/25/23 17:46 Dose: 5 mg Documented By: HO.FOSTEKR Labs 03/27/23 06:22 03/27/23 06:22 Labs: Laboratory Results - last 24 hr 03/27/23 03/27/23 03/28/23 16:25 20:34 06:49 Hold Purple Top SEE NOTE PT 30.9 H D INR 2.5 H POC Glucose 119 H 132 H Hold Yellow Top See Note 03/28/23 03/28/23 07:06 10:52 Hold Purple Top PT INR POC Glucose 120 H 170 H Hold Yellow Top Assessment and Plan (1) Hypotension: Status: Acute (2) Atrial fibrillation with RVR: Status: Acute (3) Obstructive uropathy: Status: Acute (4) ELMIRA (acute kidney injury): Status: Acute (5) Sepsis: Status: Acute Plan 72-year-old male with well-controlled insulin-dependent type 2 diabetes, GERD, coronary artery disease s/p PCI with SELENE in 11/2022 on DAPT, HFpEF, paroxysmal atrial fibrillation, history of bilateral lower extremity DVT anticoagulated with Coumadin, chronic venous stasis dermatitis admitted for UTI with severe sepsis and obstructive uropathy with ELMIRA as well as atrial fibrillation with RVR # acute UTI with severe sepsis, sepsis resolved, cultures no growth. Continue Ceftriaxone started 03/24, oral ceftin at dc x 10 days #Hypotension- d/t above, resolved following iVF and midodrine # obstructive uropathy with urinary retention, -likely multifactorial secondary to prostate enlargement as well as 5 mm obstructing stone at the left ureterovesical junction -Julio catheter and outpatient voiding trial -Dr. Eastman has seen and is recommending continuing with Julio and outpatient voiding trial # acute kidney injury d/t obstructive uropathy, resolved. Cr is now normal. # Chronic afib with rvr, rate remains high, increasing Metoprolol to 100 bid and if not control will need cardioversion, continue Coumadin, daily inr # stage II decubitus ulcer buttock -barrier cream, pressure dressings -turn and position # cutaneous candidiasis -nystatin powder # insulin-dependent type 2 diabetes- acceptable controlled -POC glucose, diabetic diet -patient uses insulin pump at home, and has elected to continue to use and manage his insulin via pump, we will check sugar level as usual and will intervene with discrepancy in sugar level -hold metformin # CAD -continue dapt, bb, #HFpEF -no acute exacerbation, euvolemic appearing on exam -continue p.o. Lasix # BPH -continue finasteride, Flomax DVT prophylaxis-Coumadin Full code need for inpatient: given ongoing sepsis with borderline hypotension, uncontrolled afib that need med adjsutement and continuous cardiac moniting pt needs inpatient menagement. PT recommends STR, possibly by tomorrow Quality Stroke Does the patient have a stroke diagnosis?: No VTE Prior VTE?: Yes VTE Risk Level:: Medical - moderate - high VTE Device Contraindication: Treatment Not Indicated VTE Drug Contraindication: N/A - Med Ordered
[2023-03-28] MEDS: Metoprolol Tartrate 100 MG TABLET PO (17:19)
[2023-03-28] MEDS: Warfarin Sodium 2.5 MG TABLET PO (17:19)
[2023-03-28 17:27] VITALS: BP 125/78; PULSE 122; RESP 16; TEMP 36.6; O2SAT 95
[2023-03-28 17:30] LABS: Glucose, Whole Blood 130 mg/dL (60-115)
[2023-03-28 20:00] VITALS: BP 95/63; PULSE 85; RESP 17; TEMP 37.2; O2SAT 97
[2023-03-28 21:18] LABS: Glucose, Whole Blood 142 mg/dL (60-115)
[2023-03-28] MEDS: Atorvastatin Calcium 40 MG TABLET PO (22:06)
[2023-03-28] MEDS: cefTRIAXone sodium 1 GM in 0.9 % Sodium Chloride 50 ML IV (22:06)
[2023-03-28] MEDS: Melatonin 3 MG TABLET PO (22:06)
[2023-03-28] MEDS: Acetaminophen 325 MG TABLET 650 MG PO (22:12)
[2023-03-29] VITALS (9 sets, daily range): BP systolic 109–139; BP diastolic 63–90; PULSE 82–112; RESP 16–20; TEMP 36.1–37.1; O2SAT 93–98
[2023-03-29 07:23] LABS: INTERNATIONAL NORM RATIO 2.4 (0.9-1.1)
[2023-03-29 07:46] LABS: Glucose, Whole Blood 111 mg/dL (60-115)
[2023-03-29 08:01] LABS: Hematocrit 38.3 % (42.0-52.0); Hemoglobin 11.4 g/dl (14.0-18.0); Mean Corpuscular HGB Conc 29.8 g/dl (31.0-36.0); Mean Corpuscular Hemoglobin 22.2 pg (27.0-33.0); Mean Corpuscular Volume 74.5 fL (80.0-98.0); Mean Platelet Volume 8.8 fL (9.4-12.4); Platelet Count 263 X10*3/uL (160-400); Red Blood Count 5.14 X10*6/uL (4.60-5.80); Red Cell Distribution Width 20.1 % (11.0-16.0); White Blood Count 8.3 X10*3/uL (4.8-10.8)
[2023-03-29 08:06] LABS: Anion Gap 12 (12-20); Blood Urea Nitrogen 19 mg/dL (9-16); Calcium 8.9 mg/dL (8.4-10.2); Carbon Dioxide 25 mmol/L (22-29); Chloride 107 mmol/L (96-108); Creatinine Clr Calc Pharmacy 147.9; Estimated Glomerular Filt Rate > 60; Glucose Random 106 mg/dL (60-115); Potassium 4.5 mmol/L (3.3-5.1); Sodium 139 mmol/L (135-145)
[2023-03-29] MEDS: Clopidogrel Bisulfate 75 MG TABLET PO (09:46)
[2023-03-29] MEDS: Metoprolol Tartrate 100 MG TABLET PO ×2 (09:46→17:50)
[2023-03-29] MEDS: Magnesium Oxide 400 MG TABLET PO ×2 (09:47→17:51)
[2023-03-29] MEDS: Furosemide 20 MG TABLET PO (09:47)
[2023-03-29] MEDS: Digoxin 0.25 MG TABLET PO (09:47)
[2023-03-29] MEDS: Nystatin Powder 15 GM BOTTLE 1 APPL TOPICAL ×2 (09:48→22:53)
[2023-03-29] MEDS: 0.9 % Sodium Chloride Flush 3 ML SYRINGE IVFLUSH ×3 (09:48→22:58)
[2023-03-29 10:19] LABS: CDiff Gene PCR NEGATIVE (Negative)
--- NOTE | 2023-03-29 11:18 | PM.PNCARD ---
Subjective Subjective Date of Service: 03/29/23 Interval history: He denies any clear-cut cardiac symptoms but just feels very weak. Review of Systems Review of Systems Yes all other systems are reviewed and are negative Constitutional: Reports as per HPI and Reports no additional constitutional complaints Eyes: Reports as per HPI and Denies no additional eye complaints Denies system reviewed and no additional complaints, except as documented and Reports as per HPI Cardiovascular: Reports as per HPI, Reports no additional cardiovascular complaints, Denies acrocyanosis, Denies cool extremities, Denies chest pain, Denies leg edema, Denies lightheadedness, Denies palpitations and Denies dyspnea Respiratory: Reports as per HPI, Denies no additional respiratory complaints and Denies dyspnea Gastrointestinal: Reports as per HPI and Denies no additional gastrointestinal complaints Genitourinary: Reports no additional male genitourinary complaints and Reports as per HPI Musculoskeletal: Reports no additional musculoskeletal complaints and Reports as per HPI Skin/Breast: Reports system reviewed and no additional complaints, except as docu Reports system reviewed and no additional complaints, except as documented and Reports as per HPI Psychiatric: Reports no additional psychiatric complaints and Reports as per HPI Endocrine: Reports no additional endocrine complaints, Reports as per HPI and Denies palpitations Hematologic/Lymphatic: Reports no additional hematologic/lymphatic complaints and Reports as per HPI Allergic/Immunologic: Reports no additional allergic/immunologic complaints and Reports as per HPI Physical Exam Vital Signs: Last Vital Signs Temp 98.4 F 03/29/23 07:38 Pulse 112 H 03/29/23 07:38 Resp 16 03/29/23 07:38 BP 134/78 03/29/23 07:38 Pulse Ox 93 03/29/23 07:38 O2 Del Method Room Air 03/29/23 07:38 O2 Flow Rate 2 03/26/23 07:37 BMI result Body Mass Index 32.4 Const General: comfortable and no acute distress Orientation/consciousness: patient oriented x3 HEENT Other: Unremarkable Head: Yes normal to inspection Neck Neck: Yes normal visual inspection Chest Chest palpation & inspection: normal inspection of the chest Resp Auscultation: clear to auscultation bilaterally Cardio Palpation: normal PMI Heart sounds: S1 normal heart sound present, S2 normal heart sound present, no gallops, no murmurs and no rubs GI Palpation (GI): Soft to palpation Back/Spine/Pelvis Other: unremarkable Skin General skin exam: no rashes or lesions noted Neuro General: patient oriented x3 Extrem Other: Chronic changes General: Yes normal to inspection Psych Mental Status: mental status grossly normal Objective Labs and Meds 03/29/23 06:28 03/29/23 06:28 Lab results: Laboratory Results - last 24 hr 03/28/23 03/28/23 03/29/23 17:26 20:43 06:28 WBC 8.3 RBC 5.14 Hgb 11.4 L Hct 38.3 L MCV 74.5 L MCH 22.2 L MCHC 29.8 L RDW 20.1 H Plt Count 263 MPV 8.8 L Absolute Nucleated RBC 0.000 Nucleated RBC % (auto) 0.0 Hold Purple Top SEE NOTE PT 29.0 H INR 2.4 H Sodium 139 Potassium 4.5 Chloride 107 Carbon Dioxide 25 Anion Gap 12 BUN 19 H Creatinine 0.66 Estim Creat Clear Calc 147.9 Estimated GFR > 60 POC Glucose 130 H 142 H Random Glucose 106 Calcium 8.9 C. difficile Tox B Gene 03/29/23 03/29/23 07:40 08:57 WBC RBC Hgb Hct MCV MCH MCHC RDW Plt Count MPV Absolute Nucleated RBC Nucleated RBC % (auto) Hold Purple Top PT INR Sodium Potassium Chloride Carbon Dioxide Anion Gap BUN Creatinine Estim Creat Clear Calc Estimated GFR POC Glucose 111 Random Glucose Calcium C. difficile Tox B Gene NEGATIVE Progress Note: A&P Assessment and plan (1) Atrial fibrillation with RVR: Status: Acute Plan Prior records from [facility] reviewed. It seems that he has had persistent atrial fibrillation dating back to at least 2018 but patient thinks it might be even prior to that. Outpatient Holter shows an average heart rate of 95/Min and hence even at baseline he does not seem fully regulated. We already gone up on the beta-ela dosing and also add back the digoxin. Heart rate is still high. He had some hypotension issues but it seems that that is improved now. Today morning blood pressure is 134/78 mm Hg. Patient states he used to actually have hypertension was on lisinopril in the past. Event much of options. As atrial fibrillation is several years of duration, not a good candidate for cardioversion. Even so, he probably will need some amiodarone loading before even attempting it. If blood pressure allows, then try diltiazem CD 1 20 mg daily. If not, may have to use amiodarone for rate control as opposed rhythm control. This sometimes uses last resort. Otherwise, even though heart rate is fast he seems compensated from cardiac. Discussed with Dr. Ibarra. Time Spent With Patient Time: Total time managing care of this patient today ____ minutes. Progress Note: Quality Stroke Does the patient have a stroke diagnosis?: No Procedures Date of Service Date of Service: 03/29/23
[2023-03-29 11:34] LABS: Glucose, Whole Blood 126 mg/dL (60-115)
[2023-03-29] MEDS: Folic Acid 1 MG TABLET PO (12:53)
[2023-03-29] MEDS: dilTIAZem HCL 30 MG TABLET PO ×3 (12:53→22:51)
[2023-03-29] MEDS: Finasteride 5 MG TABLET PO (12:53)
[2023-03-29] MEDS: Acetaminophen 325 MG TABLET 650 MG PO (12:53)
[2023-03-29 15:44] LABS: Glucose, Whole Blood 136 mg/dL (60-115)
[2023-03-29] MEDS: Warfarin Sodium 2.5 MG TABLET PO (17:50)
--- NOTE | 2023-03-29 17:57 | P.PNIM_ITS ---
Subjective Subjective Date of Service: 03/29/23 Interval History: Heart rate contines to fluctuates, no hematuria, generally feels weak, labs looks ok Physical Exam 2 Vital Signs: Vital Signs: Last Vital Signs Temp 97.3 F 03/29/23 15:18 Pulse 97 03/29/23 15:18 Resp 17 03/29/23 15:18 BP 139/87 03/29/23 15:18 Pulse Ox 98 03/29/23 15:18 O2 Del Method Room Air 03/29/23 15:18 O2 Flow Rate 2 03/26/23 07:37 BMI result Body Mass Index 32.4 Const: Other: General: AO X 3, no acute distress Resp: CTA bilateral CVS: S1,S2, iRiR GI: +BS, NT, no distention, No CVA tenderness Skin: No rash, partial thickness decubitus ulcer the buttock bilaterally. Chronic venous stasis changes to the bilateral lower extremities Neuro: motor grossly intact Psych: appropriate affect Objective Data Active Medications Acetaminophen (Acetaminophen 325 Mg Tablet) 650 mg PO Q6H PRN PRN Reason: Pain, Mild (Pain Scale 1-3) Last Admin: 03/29/23 12:53 Dose: 650 mg Documented By: FIGUEROA Atorvastatin Calcium (Atorvastatin Calcium 40 Mg Tablet) 40 mg PO BEDTIME [facility] Last Admin: 03/28/23 22:06 Dose: 40 mg Documented By: CHAPARRITA Clopidogrel Bisulfate (Clopidogrel Bisulfate 75 Mg Tablet) 75 mg PO DAILY [facility] Last Admin: 03/29/23 09:46 Dose: 75 mg Documented By: PATRICIA Digoxin (Digoxin 0.25 Mg Tablet) 0.25 mg PO DAILY [facility] Last Admin: 03/29/23 09:47 Dose: 0.25 mg Documented By: PATRICIA Diltiazem HCl (Diltiazem Hcl 30 Mg Tablet) 30 mg PO QID [facility]; Protocol Last Admin: 03/29/23 17:50 Dose: 30 mg Documented By: LUIS Finasteride (Finasteride 5 Mg Tablet) 5 mg PO DAILY@1200 [facility] Last Admin: 03/29/23 12:53 Dose: 5 mg Documented By: FIGUEROA Folic Acid (Folic Acid 1 Mg Tablet) 1 mg PO DAILY@1200 [facility] Last Admin: 03/29/23 12:53 Dose: 1 mg Documented By: FIGUEROA Furosemide (Furosemide 20 Mg Tablet) 20 mg PO DAILY [facility]; Protocol Last Admin: 03/29/23 09:47 Dose: 20 mg Documented By: PATRICIA Ceftriaxone Sodium 1 gm/ (Sodium Chloride) 50 mls @ 100 mls/hr IV Q24H [facility] Last Infusion: 03/28/23 22:36 Dose: Infused Documented By: CHAPARRITA Insulin Pump (Subcutaneous Insulin Pump) 1 each SUBCUT QIDACHS [facility]; Protocol Last Admin: 03/29/23 17:41 Dose: Not Given Documented By: LUIS Non-Admin Reason: No Insulin Coverage Lactic Acid (Ammonium Lactate 12 % Cream 140 Gm Tube) 1 appl TOPICAL DAILY PRN; Protocol PRN Reason: Wound Care Magnesium Oxide (Magnesium Oxide 400 Mg Tablet) 400 mg PO BIDPC [facility] Last Admin: 03/29/23 17:51 Dose: 400 mg Documented By: LUIS Melatonin (Melatonin 3 Mg Tablet) 3 mg PO BEDTIME PRN PRN Reason: Insomnia Last Admin: 03/28/23 22:06 Dose: 3 mg Documented By: CHAPARRITA Metoprolol Tartrate (Metoprolol Tartrate 100 Mg Tablet) 100 mg PO BID@0900,1700 [facility]; Protocol Last Admin: 03/29/23 17:50 Dose: 100 mg Documented By: LUIS Nystatin (Nystatin Powder 15 Gm Bottle) 1 appl TOPICAL BID [facility]; Protocol Last Admin: 03/29/23 09:48 Dose: 1 appl Documented By: PATRICIA Ondansetron HCl (Ondansetron Hcl 4 Mg/2 Ml Vial) 4 mg IVPUSH Q8H PRN PRN Reason: Nausea and Vomiting Last Admin: 03/27/23 17:20 Dose: 4 mg Documented By: SOLO Senna (Sennosides 8.6 Mg Tablet) 17.2 mg PO BEDTIME PRN PRN Reason: Constipation Silver Sulfadiazine (Silver Sulfadiazine 1 % Cream 20 Gm Tube) 1 appl TOPICAL DAILY PRN PRN Reason: Wound Care Sodium Chloride (0.9 % Sodium Chloride Flush 3 Ml Syringe) [facility] Last Admin: 03/29/23 12:55 Dose: 3 ml Documented By: FIGUEROA Warfarin Sodium (Warfarin Sodium 2.5 Mg Tablet) 2.5 mg PO MOWEFRSA@1800 [facility] Last Admin: 03/29/23 17:50 Dose: 2.5 mg Documented By: LUIS Warfarin Sodium (Warfarin Sodium 5 Mg Tablet) 5 mg PO SUTUTH@1800 [facility] Last Admin: 03/25/23 17:46 Dose: 5 mg Documented By: LUIS Labs 03/29/23 06:28 03/29/23 06:28 Labs: Laboratory Results - last 24 hr 03/28/23 03/29/23 03/29/23 20:43 06:28 07:40 MCV 74.5 L MCH 22.2 L MCHC 29.8 L RDW 20.1 H Plt Count 263 MPV 8.8 L Absolute Nucleated RBC 0.000 Nucleated RBC % (auto) 0.0 Hold Purple Top SEE NOTE PT 29.0 H INR 2.4 H Anion Gap 12 Estim Creat Clear Calc 147.9 Estimated GFR > 60 POC Glucose 142 H 111 Random Glucose 106 Calcium 8.9 C. difficile Tox B Gene 03/29/23 03/29/23 03/29/23 08:57 11:30 15:21 MCV MCH MCHC RDW Plt Count MPV Absolute Nucleated RBC Nucleated RBC % (auto) Hold Purple Top PT INR Anion Gap Estim Creat Clear Calc Estimated GFR POC Glucose 126 H 136 H Random Glucose Calcium C. difficile Tox B Gene NEGATIVE Assessment and Plan (1) Hypotension: Status: Acute (2) Atrial fibrillation with RVR: Status: Acute (3) Obstructive uropathy: Status: Acute (4) EMLIRA (acute kidney injury): Status: Acute (5) Sepsis: Status: Acute Plan 72-year-old male with well-controlled insulin-dependent type 2 diabetes, GERD, coronary artery disease s/p PCI with SELENE in 11/2022 on DAPT, HFpEF, paroxysmal atrial fibrillation, history of bilateral lower extremity DVT anticoagulated with Coumadin, chronic venous stasis dermatitis admitted for UTI with severe sepsis and obstructive uropathy with ELMIRA as well as atrial fibrillation with RVR # acute UTI with severe sepsis, sepsis resolved, cultures no growth. Continue Ceftriaxone started 03/24, oral ceftin at dc x 10 days #Hypotension- d/t above, resolved following iVF and midodrine # obstructive uropathy with urinary retention, -likely multifactorial secondary to prostate enlargement as well as 5 mm obstructing stone at the left ureterovesical junction -Julio catheter and outpatient voiding trial -Dr. Eastman has seen and is recommending continuing with Julio and outpatient voiding trial # acute kidney injury d/t obstructive uropathy, resolved. Cr is now normal. # Chronic afib with rvr, rate remains high, increasing Metoprolol to 100, Cardizem added and rate is now better. Continue coumadin # stage II decubitus ulcer buttock -barrier cream, pressure dressings -turn and position # cutaneous candidiasis -nystatin powder # insulin-dependent type 2 diabetes- acceptable controlled -POC glucose, diabetic diet -patient uses insulin pump at home, and has elected to continue to use and manage his insulin via pump, we will check sugar level as usual and will intervene with discrepancy in sugar level -hold metformin # CAD -continue dapt, bb, #HFpEF -no acute exacerbation, euvolemic appearing on exam -continue p.o. Lasix # BPH -continue finasteride, Flomax DVT prophylaxis-Coumadin Full code need for inpatient: given ongoing sepsis with borderline hypotension, uncontrolled afib that need med adjsutement and continuous cardiac moniting pt needs inpatient menagement. PT recommends STR, probably friday Quality Stroke Does the patient have a stroke diagnosis?: No VTE Prior VTE?: Yes VTE Risk Level:: Medical - moderate - high VTE Device Contraindication: Treatment Not Indicated VTE Drug Contraindication: N/A - Med Ordered
[2023-03-29 20:15] LABS: Glucose, Whole Blood 146 mg/dL (60-115)
[2023-03-29] MEDS: cefTRIAXone sodium 1 GM in 0.9 % Sodium Chloride 50 ML IV (22:49)
[2023-03-29] MEDS: Atorvastatin Calcium 40 MG TABLET PO (22:51)
[2023-03-29] MEDS: Melatonin 3 MG TABLET PO (22:51)
[2023-03-30 04:00] VITALS: BP 128/64; PULSE 93; RESP 20; TEMP 36.8; O2SAT 95
[2023-03-30 07:05] LABS: INTERNATIONAL NORM RATIO 2.3 (0.9-1.1); Prothrombin Time 28.1 SEC (11.1-13.3)
[2023-03-30 07:42] VITALS: BP 102/58; PULSE 115; RESP 16; TEMP 36.6; O2SAT 95
[2023-03-30] MEDS: Furosemide 20 MG TABLET PO (07:47)
[2023-03-30] MEDS: Metoprolol Tartrate 100 MG TABLET PO ×2 (07:47→17:06)
[2023-03-30] MEDS: Magnesium Oxide 400 MG TABLET PO ×2 (07:47→17:06)
[2023-03-30] MEDS: Acetaminophen 325 MG TABLET 650 MG PO ×2 (07:47→17:05)
[2023-03-30] MEDS: Digoxin 0.25 MG TABLET PO (07:48)
[2023-03-30] MEDS: 0.9 % Sodium Chloride Flush 3 ML SYRINGE IVFLUSH ×2 (07:49→13:19)
[2023-03-30] MEDS: Clopidogrel Bisulfate 75 MG TABLET PO (07:49)
[2023-03-30] MEDS: Nystatin Powder 15 GM BOTTLE 1 APPL TOPICAL ×2 (07:59→21:27)
[2023-03-30 08:15] LABS: Glucose, Whole Blood 128 mg/dL (60-115)
--- NOTE | 2023-03-30 10:54 | P.PNIM_ITS ---
Subjective Subjective Date of Service: 03/30/23 Interval History: Heart rate contines to fluctuates, but overall trending in favorable direction, no new symptoms Physical Exam 2 Vital Signs: Vital Signs: Last Vital Signs Temp 97.8 F 03/30/23 07:42 Pulse 115 H 03/30/23 07:42 Resp 16 03/30/23 07:42 BP 102/58 L 03/30/23 07:42 Pulse Ox 95 03/30/23 07:42 O2 Del Method Room Air 03/30/23 07:42 O2 Flow Rate 2 03/26/23 07:37 BMI result Body Mass Index 32.4 Objective Data Active Medications Acetaminophen (Acetaminophen 325 Mg Tablet) 650 mg PO Q6H PRN PRN Reason: Pain, Mild (Pain Scale 1-3) Last Admin: 03/30/23 07:47 Dose: 650 mg Documented By: FIGUEROA Atorvastatin Calcium (Atorvastatin Calcium 40 Mg Tablet) 40 mg PO BEDTIME [facility] Last Admin: 03/29/23 22:51 Dose: 40 mg Documented By: CHAPARRITA Clopidogrel Bisulfate (Clopidogrel Bisulfate 75 Mg Tablet) 75 mg PO DAILY [facility] Last Admin: 03/30/23 07:49 Dose: 75 mg Documented By: FIGUEROA Digoxin (Digoxin 0.25 Mg Tablet) 0.25 mg PO DAILY [facility] Last Admin: 03/30/23 07:48 Dose: 0.25 mg Documented By: FIGUEROA Diltiazem HCl (Diltiazem Hcl 30 Mg Tablet) 30 mg PO QID [facility]; Protocol Last Admin: 03/30/23 07:50 Dose: Not Given Documented By: FIGUEROA Non-Admin Reason: Decreased Blood Pressure Finasteride (Finasteride 5 Mg Tablet) 5 mg PO DAILY@1200 JOY Last Admin: 03/29/23 12:53 Dose: 5 mg Documented By: FIGUEROA Folic Acid (Folic Acid 1 Mg Tablet) 1 mg PO DAILY@1200 JOY Last Admin: 03/29/23 12:53 Dose: 1 mg Documented By: FIGUEROA Furosemide (Furosemide 20 Mg Tablet) 20 mg PO DAILY [facility]; Protocol Last Admin: 03/30/23 07:47 Dose: 20 mg Documented By: FIGUEROA Ceftriaxone Sodium 1 gm/ (Sodium Chloride) 50 mls @ 100 mls/hr IV Q24H [facility] Last Infusion: 03/29/23 23:19 Dose: Infused Documented By: CHAPARRITA Insulin Pump (Subcutaneous Insulin Pump) 1 each SUBCUT QIDACHS [facility]; Protocol Last Admin: 03/30/23 07:30 Dose: Not Given Documented By: FIGUEROA Non-Admin Reason: No Insulin Coverage Lactic Acid (Ammonium Lactate 12 % Cream 140 Gm Tube) 1 appl TOPICAL DAILY PRN; Protocol PRN Reason: Wound Care Magnesium Oxide (Magnesium Oxide 400 Mg Tablet) 400 mg PO BIDPC [facility] Last Admin: 03/30/23 07:47 Dose: 400 mg Documented By: FIGUEROA Melatonin (Melatonin 3 Mg Tablet) 3 mg PO BEDTIME PRN PRN Reason: Insomnia Last Admin: 03/29/23 22:51 Dose: 3 mg Documented By: CHAPARRITA Metoprolol Tartrate (Metoprolol Tartrate 100 Mg Tablet) 100 mg PO BID@0900,1700 [facility]; Protocol Last Admin: 03/30/23 07:47 Dose: 100 mg Documented By: FIGUEROA Nystatin (Nystatin Powder 15 Gm Bottle) 1 appl TOPICAL BID [facility]; Protocol Last Admin: 03/30/23 07:59 Dose: 1 appl Documented By: FIGUEROA Ondansetron HCl (Ondansetron Hcl 4 Mg/2 Ml Vial) 4 mg IVPUSH Q8H PRN PRN Reason: Nausea and Vomiting Last Admin: 03/27/23 17:20 Dose: 4 mg Documented By: SOLO Senna (Sennosides 8.6 Mg Tablet) 17.2 mg PO BEDTIME PRN PRN Reason: Constipation Silver Sulfadiazine (Silver Sulfadiazine 1 % Cream 20 Gm Tube) 1 appl TOPICAL DAILY PRN PRN Reason: Wound Care Sodium Chloride (0.9 % Sodium Chloride Flush 3 Ml Syringe) 3 ml IVFLUSH QSHIFT [facility] Last Admin: 03/30/23 07:49 Dose: 3 ml Documented By: FIGUEROA Warfarin Sodium (Warfarin Sodium 2.5 Mg Tablet) 2.5 mg PO MOWEFRSA@1800 [facility] Last Admin: 03/29/23 17:50 Dose: 2.5 mg Documented By: LUIS Warfarin Sodium (Warfarin Sodium 5 Mg Tablet) 5 mg PO SUTUTH@1800 [facility] Last Admin: 03/25/23 17:46 Dose: 5 mg Documented By: LUIS Labs 03/29/23 06:28 03/29/23 06:28 Labs: Laboratory Results - last 24 hr 03/29/23 03/29/23 03/29/23 11:30 15:21 20:04 Hold Purple Top PT INR POC Glucose 126 H 136 H 146 H 03/30/23 03/30/23 06:19 07:53 Hold Purple Top SEE NOTE PT 28.1 H INR 2.3 H POC Glucose 128 H Microbiology Microbiology Results: Microbiology 03/24/23 19:00 Blood Culture - Final Blood - Venous No growth after 5 days. 03/24/23 18:03 Blood Culture - Final Blood - Venous No growth after 5 days. Assessment and Plan (1) Hypotension: Status: Acute (2) Atrial fibrillation with RVR: Status: Acute (3) Obstructive uropathy: Status: Acute (4) ELMIRA (acute kidney injury): Status: Acute (5) Sepsis: Status: Acute Plan 72-year-old male with well-controlled insulin-dependent type 2 diabetes, GERD, coronary artery disease s/p PCI with SELENE in 11/2022 on DAPT, HFpEF, paroxysmal atrial fibrillation, history of bilateral lower extremity DVT anticoagulated with Coumadin, chronic venous stasis dermatitis admitted for UTI with severe sepsis and obstructive uropathy with ELMIRA as well as atrial fibrillation with RVR # acute UTI with severe sepsis, sepsis resolved, cultures no growth. Continue Ceftriaxone started 03/24, oral ceftin at dc x 10 days #Hypotension- d/t above, resolved following iVF and midodrine # obstructive uropathy with urinary retention, -likely multifactorial secondary to prostate enlargement as well as 5 mm obstructing stone at the left ureterovesical junction -Dr. Eastman has seen and is recommending continuing with Julio and outpatient voiding trial # acute kidney injury d/t obstructive uropathy, resolved. Cr is now normal. # Chronic afib with rvr, very variable HR, But overall has improved, continue Metoprolol, Dig and Cardizem, not candidate for cardioversion per card # stage II decubitus ulcer buttock -barrier cream, pressure dressings -turn and position # cutaneous candidiasis -nystatin powder # insulin-dependent type 2 diabetes- acceptable controlled -POC glucose, diabetic diet -patient uses insulin pump at home, and has elected to continue to use and manage his insulin via pump, we will check sugar level as usual and will intervene with discrepancy in sugar level -hold metformin # CAD -continue dapt, bb, #HFpEF -no acute exacerbation, euvolemic appearing on exam -continue p.o. Lasix # BPH -continue finasteride, Flomax DVT prophylaxis-Coumadin Full code need for inpatient: given ongoing sepsis with borderline hypotension, uncontrolled afib that need med adjsutement and continuous cardiac moniting pt needs inpatient menagement. PT recommends STR, probably friday Quality Stroke Does the patient have a stroke diagnosis?: No VTE Prior VTE?: Yes VTE Risk Level:: Medical - moderate - high VTE Device Contraindication: Treatment Not Indicated VTE Drug Contraindication: N/A - Med Ordered
--- NOTE | 2023-03-30 11:17 | PM.PNCARD ---
Subjective Subjective Date of Service: 03/30/23 Interval history: No specific cardiac symptoms. Still seems weak. Review of Systems Review of Systems Yes all other systems are reviewed and are negative Constitutional: Reports as per HPI and Reports no additional constitutional complaints Eyes: Reports as per HPI and Denies no additional eye complaints Denies system reviewed and no additional complaints, except as documented and Reports as per HPI Cardiovascular: Reports as per HPI, Reports no additional cardiovascular complaints, Denies acrocyanosis, Denies cool extremities, Denies chest pain, Denies leg edema, Denies lightheadedness, Denies palpitations and Denies dyspnea Respiratory: Reports as per HPI, Denies no additional respiratory complaints and Denies dyspnea Gastrointestinal: Reports as per HPI and Denies no additional gastrointestinal complaints Genitourinary: Reports no additional male genitourinary complaints and Reports as per HPI Musculoskeletal: Reports no additional musculoskeletal complaints and Reports as per HPI Skin/Breast: Reports system reviewed and no additional complaints, except as docu Reports system reviewed and no additional complaints, except as documented and Reports as per HPI Psychiatric: Reports no additional psychiatric complaints and Reports as per HPI Endocrine: Reports no additional endocrine complaints, Reports as per HPI and Denies palpitations Hematologic/Lymphatic: Reports no additional hematologic/lymphatic complaints and Reports as per HPI Allergic/Immunologic: Reports no additional allergic/immunologic complaints and Reports as per HPI Physical Exam Vital Signs: Last Vital Signs Temp 97.8 F 03/30/23 07:42 Pulse 115 H 03/30/23 07:42 Resp 16 03/30/23 07:42 BP 102/58 L 03/30/23 07:42 Pulse Ox 95 03/30/23 07:42 O2 Del Method Room Air 03/30/23 07:42 O2 Flow Rate 2 03/26/23 07:37 BMI result Body Mass Index 32.4 Const General: comfortable and no acute distress Orientation/consciousness: patient oriented x3 HEENT Other: Unremarkable Head: Yes normal to inspection Neck Neck: Yes normal visual inspection Chest Chest palpation & inspection: normal inspection of the chest Resp Auscultation: clear to auscultation bilaterally Cardio Palpation: normal PMI Heart sounds: S1 normal heart sound present, S2 normal heart sound present, no gallops, no murmurs and no rubs GI Palpation (GI): Soft to palpation Back/Spine/Pelvis Other: unremarkable Skin General skin exam: no rashes or lesions noted Neuro General: patient oriented x3 Extrem Other: Chronic changes General: Yes normal to inspection Psych Mental Status: mental status grossly normal Objective Labs and Meds 03/29/23 06:28 03/29/23 06:28 Lab results: Laboratory Results - last 24 hr 03/29/23 03/29/23 03/29/23 11:30 15:21 20:04 Hold Purple Top PT INR POC Glucose 126 H 136 H 146 H 03/30/23 03/30/23 06:19 07:53 Hold Purple Top SEE NOTE PT 28.1 H INR 2.3 H POC Glucose 128 H Progress Note: A&P Assessment and plan (1) Atrial fibrillation with RVR: Status: Acute Plan Prior records from [facility] reviewed. It seems that he has had persistent atrial fibrillation dating back to at least 2018 but patient thinks it might be even prior to that. Outpatient Holter shows an average heart rate of 95/Min and hence even at baseline he does not seem fully regulated. As an outpatient, he was only on beta-blockers. There is mention of digoxin but he is not sure if he was taking it or not. Any case, his beta-ela dose has been increased while he is in hospital. Digoxin has been added. As today we also had the diltiazem. Today, ventricular rate in the 70s on telemetry. Seems much better controlled. We can change the diltiazem to sustained release. Continue anticoagulation. Discussed with Dr. Ibarra. Follow-up with primary Cardiology. Time Spent With Patient Time: Total time managing care of this patient today ____ minutes. Progress Note: Quality Stroke Does the patient have a stroke diagnosis?: No Procedures Date of Service Date of Service: 03/30/23
[2023-03-30 11:23] VITALS: BP 97/66; PULSE 73; TEMP 36.4; O2SAT 94
[2023-03-30 12:01] LABS: Glucose, Whole Blood 141 mg/dL (60-115)
[2023-03-30] MEDS: Folic Acid 1 MG TABLET PO (13:17)
[2023-03-30] MEDS: Finasteride 5 MG TABLET PO (13:17)
[2023-03-30 15:55] VITALS: BP 100/56; PULSE 92; RESP 20; TEMP 36.3; O2SAT 96
[2023-03-30 16:23] LABS: Glucose, Whole Blood 171 mg/dL (60-115)
[2023-03-30] MEDS: dilTIAZem HCL 30 MG TABLET PO ×2 (17:06→21:21)
[2023-03-30] MEDS: Warfarin Sodium 5 MG TABLET PO (17:06)
[2023-03-30 20:00] VITALS: BP 137/78; PULSE 90; RESP 24; TEMP 36.7; O2SAT 95
[2023-03-30 20:04] LABS: Glucose, Whole Blood 205 mg/dL (60-115)
[2023-03-30] MEDS: cefTRIAXone sodium 1 GM in 0.9 % Sodium Chloride 50 ML IV (21:21)
[2023-03-30] MEDS: Atorvastatin Calcium 40 MG TABLET PO (21:21)
[2023-03-31] VITALS (7 sets, daily range): BP systolic 96–119; BP diastolic 61–70; PULSE 67–94; RESP 17–20; TEMP 36.3–36.8; O2SAT 92–98
[2023-03-31 06:55] LABS: INTERNATIONAL NORM RATIO 2.5 (0.9-1.1); Prothrombin Time 29.9 SEC (11.1-13.3)
[2023-03-31 07:03] LABS: Glucose, Whole Blood 121 mg/dL (60-115)
[2023-03-31] MEDS: 0.9 % Sodium Chloride Flush 3 ML SYRINGE IVFLUSH ×3 (08:19→21:26)
[2023-03-31] MEDS: Clopidogrel Bisulfate 75 MG TABLET PO (08:19)
[2023-03-31] MEDS: Metoprolol Tartrate 100 MG TABLET PO ×2 (08:19→17:19)
[2023-03-31] MEDS: Magnesium Oxide 400 MG TABLET PO ×2 (08:19→17:18)
[2023-03-31] MEDS: Digoxin 0.25 MG TABLET PO (08:19)
[2023-03-31] MEDS: dilTIAZem HCL 30 MG TABLET PO ×3 (08:19→21:26)
[2023-03-31] MEDS: Furosemide 20 MG TABLET PO (08:19)
[2023-03-31] MEDS: Ammonium Lactate 12 % Cream 140 GM TUBE 1 APPL TOPICAL (08:20)
[2023-03-31] MEDS: Nystatin Powder 15 GM BOTTLE 1 APPL TOPICAL ×2 (08:20→21:27)
[2023-03-31 10:48] LABS: Glucose, Whole Blood 167 mg/dL (60-115)
--- NOTE | 2023-03-31 11:35 | P.PNIM_ITS ---
Subjective Subjective Date of Service: 03/31/23 Interval History: f/u sepsis, uti, afib with variable hr, elmira/obstructive uropathy overall heart rate is better controlled now Physical Exam 2 Vital Signs: Vital Signs: Last Vital Signs Temp 97.5 F 03/31/23 11:22 Pulse 67 03/31/23 11:22 Resp 20 03/31/23 11:22 BP 96/62 03/31/23 11:22 Pulse Ox 98 03/31/23 11:22 O2 Del Method Room Air 03/31/23 11:22 O2 Flow Rate 3 03/31/23 07:06 BMI result Body Mass Index 32.4 Const: Other: General: AO X 3, no acute distress Resp: CTA bilateral CVS: S1,S2, iRiR GI: +BS, NT, no distention, No CVA tenderness Skin: No rash, partial thickness decubitus ulcer the buttock bilaterally. Chronic venous stasis changes to the bilateral lower extremities Neuro: motor grossly intact Psych: appropriate affect Objective Data Active Medications Acetaminophen (Acetaminophen 325 Mg Tablet) 650 mg PO Q6H PRN PRN Reason: Pain, Mild (Pain Scale 1-3) Last Admin: 03/30/23 17:05 Dose: 650 mg Documented By: FIGUEROA Atorvastatin Calcium (Atorvastatin Calcium 40 Mg Tablet) 40 mg PO BEDTIME [facility] Last Admin: 03/30/23 21:21 Dose: 40 mg Documented By: JOSSIE Clopidogrel Bisulfate (Clopidogrel Bisulfate 75 Mg Tablet) 75 mg PO DAILY [facility] Last Admin: 03/31/23 08:19 Dose: 75 mg Documented By: LILIANE Digoxin (Digoxin 0.25 Mg Tablet) 0.25 mg PO DAILY [facility] Last Admin: 03/31/23 08:19 Dose: 0.25 mg Documented By: LILIANE Diltiazem HCl (Diltiazem Hcl 30 Mg Tablet) 30 mg PO QID [facility]; Protocol Last Admin: 03/31/23 08:19 Dose: 30 mg Documented By: LILIANE Finasteride (Finasteride 5 Mg Tablet) 5 mg PO DAILY@1200 JOY Last Admin: 03/30/23 13:17 Dose: 5 mg Documented By: FIGUEROA Folic Acid (Folic Acid 1 Mg Tablet) 1 mg PO DAILY@1200 JOY Last Admin: 03/30/23 13:17 Dose: 1 mg Documented By: FIGUEROA Furosemide (Furosemide 20 Mg Tablet) 20 mg PO DAILY [facility]; Protocol Last Admin: 03/31/23 08:19 Dose: 20 mg Documented By: LILIANE Ceftriaxone Sodium 1 gm/ (Sodium Chloride) 50 mls @ 100 mls/hr IV Q24H [facility] Last Infusion: 03/30/23 21:56 Dose: Infused Documented By: JOSSIE Insulin Pump (Subcutaneous Insulin Pump) 1 each SUBCUT QIDACHS [facility]; Protocol Last Admin: 03/31/23 11:34 Dose: Not Given Documented By: LILIANE Non-Admin Reason: pt gives to self Lactic Acid (Ammonium Lactate 12 % Cream 140 Gm Tube) 1 appl TOPICAL DAILY PRN; Protocol PRN Reason: Wound Care Last Admin: 03/31/23 08:20 Dose: 1 appl Documented By: LILIANE Magnesium Oxide (Magnesium Oxide 400 Mg Tablet) 400 mg PO BIDPC [facility] Last Admin: 03/31/23 08:19 Dose: 400 mg Documented By: LILIANE Melatonin (Melatonin 3 Mg Tablet) 3 mg PO BEDTIME PRN PRN Reason: Insomnia Last Admin: 03/29/23 22:51 Dose: 3 mg Documented By: CHAPARRITA Metoprolol Tartrate (Metoprolol Tartrate 100 Mg Tablet) 100 mg PO BID@0900,1700 [facility]; Protocol Last Admin: 03/31/23 08:19 Dose: 100 mg Documented By: LILIANE Nystatin (Nystatin Powder 15 Gm Bottle) 1 appl TOPICAL BID [facility]; Protocol Last Admin: 03/31/23 08:20 Dose: 1 appl Documented By: LILIANE Ondansetron HCl (Ondansetron Hcl 4 Mg/2 Ml Vial) 4 mg IVPUSH Q8H PRN PRN Reason: Nausea and Vomiting Last Admin: 03/27/23 17:20 Dose: 4 mg Documented By: SOLO Senna (Sennosides 8.6 Mg Tablet) 17.2 mg PO BEDTIME PRN PRN Reason: Constipation Silver Sulfadiazine (Silver Sulfadiazine 1 % Cream 20 Gm Tube) 1 appl TOPICAL DAILY PRN PRN Reason: Wound Care Sodium Chloride (0.9 % Sodium Chloride Flush 3 Ml Syringe) [facility] Last Admin: 03/31/23 08:19 Dose: 3 ml Documented By: LILIANE Warfarin Sodium (Warfarin Sodium 2.5 Mg Tablet) 2.5 mg PO MOWEFRSA@1800 [facility] Last Admin: 03/29/23 17:50 Dose: 2.5 mg Documented By: LUIS Warfarin Sodium (Warfarin Sodium 5 Mg Tablet) 5 mg PO SUTUTH@1800 [facility] Last Admin: 03/30/23 17:06 Dose: 5 mg Documented By: TRIP-ADAM Labs 03/29/23 06:28 03/29/23 06:28 Labs: Laboratory Results - last 24 hr 03/30/23 03/30/23 03/30/23 11:58 15:58 19:58 Hold Purple Top PT INR POC Glucose 141 H 171 H 205 H 03/31/23 03/31/23 03/31/23 06:28 07:00 10:44 Hold Purple Top SEE NOTE PT 29.9 H INR 2.5 H POC Glucose 121 H 167 H Assessment and Plan (1) Hypotension: Status: Acute (2) Atrial fibrillation with RVR: Status: Acute (3) Obstructive uropathy: Status: Acute (4) ELMIRA (acute kidney injury): Status: Acute (5) Sepsis: Status: Acute Plan 72-year-old male with well-controlled insulin-dependent type 2 diabetes, GERD, coronary artery disease s/p PCI with SELENE in 11/2022 on DAPT, HFpEF, paroxysmal atrial fibrillation, history of bilateral lower extremity DVT anticoagulated with Coumadin, chronic venous stasis dermatitis admitted for UTI with severe sepsis and obstructive uropathy with ELMIRA as well as atrial fibrillation with RVR # acute UTI with severe sepsis, sepsis resolved, cultures no growth. Continue Ceftriaxone started 03/24, oral ceftin at dc x 10 days, ending 04/02 #Hypotension- on presentation, esolved following iVF and midodrine # obstructive uropathy with urinary retention, -likely multifactorial secondary to prostate enlargement as well as 5 mm obstructing stone at the left ureterovesical junction -Dr. Eastman has seen and is recommending continuing with Julio and outpatient voiding trial, component of renal failure resolved. # acute kidney injury d/t obstructive uropathy, resolved. Cr is now normal. # Chronic afib with rvr, very variable HR, But overall has improved, continue Metoprolol, Dig and Cardizem, not candidate for cardioversion per card.. HR in 60s, continue coumadin INR goal of 2 to 3 # stage II decubitus ulcer buttock -barrier cream, pressure dressings -turn and position # cutaneous candidiasis -nystatin powder # insulin-dependent type 2 diabetes- acceptable controlled -POC glucose, diabetic diet -patient uses insulin pump at home, and has elected to continue to use and manage his insulin via pump, we will check sugar level as usual and will intervene with discrepancy in sugar level -hold metformin # CAD -continue dapt, bb, #HFpEF -no acute exacerbation, euvolemic appearing on exam -continue p.o. Lasix # BPH -continue finasteride, Flomax DVT prophylaxis-Coumadin Full code need for inpatient: given ongoing sepsis with borderline hypotension, uncontrolled afib that need med adjsutement and continuous cardiac moniting pt needs inpatient menagement. PT recommends STR, ready for dc Quality Stroke Does the patient have a stroke diagnosis?: No VTE Prior VTE?: Yes VTE Risk Level:: Medical - moderate - high VTE Device Contraindication: Treatment Not Indicated VTE Drug Contraindication: N/A - Med Ordered
--- NOTE | 2023-03-31 12:05 | MHC.CLN ---
F/U PT WITH STAGE II PRESSURE INJURY TO RIGHT BUTTOCK. PO INTAKE 75-100% DIET RX: 2200 DM CARDIAC-APPROPRIATE PT RECEIVING ENSURE MAX BID TO PROMOTE WOUND HEALING SUPP PROVIDES 300KCALS, 60G PROTEIN MONITOR PO INTAKE AND ENCOURAGE SUPPLEMENT
[2023-03-31] MEDS: Folic Acid 1 MG TABLET PO (12:23)
[2023-03-31] MEDS: Finasteride 5 MG TABLET PO (12:23)
--- NOTE | 2023-03-31 12:59 | MHC.CM.PN ---
EMR REVIEWED,CM MET W/PT TO DISCUSS DISPO, PT REPORTS THAT HOSPITALIST WANTS HIM TO GO TO STR, P.T. RECOMMENDING STR, PT REPORTS HE IS WILLING TO DO 5 DAYS PRIOR TO RETURNING HOME AND [facility]REFERRED [facility] IF THEY HAVE WIFI, CM AWAITING RESPONSE FROM SNF AND WILL CONT TO FOLLOW.
[2023-03-31 15:18] LABS: Glucose, Whole Blood 137 mg/dL (60-115)
[2023-03-31] MEDS: Warfarin Sodium 2.5 MG TABLET PO (17:19)
[2023-03-31 20:02] LABS: Glucose, Whole Blood 156 mg/dL (60-115)
[2023-03-31] MEDS: cefTRIAXone sodium 1 GM in 0.9 % Sodium Chloride 50 ML IV (21:25)
[2023-03-31] MEDS: Atorvastatin Calcium 40 MG TABLET PO (21:26)
[2023-04-01 04:00] VITALS: BP 125/66; PULSE 93; RESP 18; TEMP 36.2; O2SAT 95
[2023-04-01 07:22] VITALS: BP 148/70; PULSE 94; RESP 18; TEMP 36.4; O2SAT 95
[2023-04-01 07:27] LABS: Glucose, Whole Blood 111 mg/dL (60-115)
[2023-04-01] MEDS: dilTIAZem HCL 30 MG TABLET PO ×3 (07:40→20:24)
[2023-04-01] MEDS: Clopidogrel Bisulfate 75 MG TABLET PO (07:40)
[2023-04-01] MEDS: Digoxin 0.25 MG TABLET PO (07:41)
[2023-04-01] MEDS: 0.9 % Sodium Chloride Flush 3 ML SYRINGE IVFLUSH ×2 (07:41→18:04)
[2023-04-01] MEDS: Magnesium Oxide 400 MG TABLET PO ×2 (07:41→18:05)
[2023-04-01] MEDS: Furosemide 20 MG TABLET PO (07:41)
[2023-04-01] MEDS: Metoprolol Tartrate 100 MG TABLET PO (07:41)
[2023-04-01] MEDS: Acetaminophen 325 MG TABLET 650 MG PO (07:45)
[2023-04-01] MEDS: Nystatin Powder 15 GM BOTTLE 1 APPL TOPICAL (07:48)
[2023-04-01 09:13] LABS: INTERNATIONAL NORM RATIO 2.2 (0.9-1.1)
--- NOTE | 2023-04-01 10:53 | MHC.CM.PN ---
PT MEDICALLY CLEARED FOR DC, PT AND S.O. HAVE CHOSEN [facility] NO PREFERRED SNF, CM HAS REQUESTED SNF SUBMIT FOR AUTH, CM TO SCHEDULE TRANSPORT ONCE AUTH IS OBTAINED.
[2023-04-01 11:31] VITALS: BP 100/61; PULSE 76; RESP 18; TEMP 36.3; O2SAT 96
[2023-04-01 11:33] LABS: Glucose, Whole Blood 105 mg/dL (60-115)
[2023-04-01] MEDS: Folic Acid 1 MG TABLET PO (12:40)
[2023-04-01] MEDS: Finasteride 5 MG TABLET PO (12:40)
[2023-04-01] MEDS: Mag&Al/Sim/Diphenhyd/Lidocaine 10 ML ORAL.SUSP PO ×3 (12:40→21:14)
--- NOTE | 2023-04-01 14:08 | HO.WOUND ---
Wound Consult: Follow up 72yr old male admitted to [facility] on 03/24/23 23:18? - See progress notes and H&P for detailed history. Follow up wound consult placed for buttocks and lower legs assessment. Patient is agreeable to assessment today and photo documentation. Pt reports he has treated at various wound clinics in the past and uses over the counter compression therapy at times. He reports he has used prescribed compression in the distant past but is unable to find a provider to aid in him getting personalized compression therapy. The pt will benefit from [facility] for leg edema management. We talked about routine bathing and the benefits to his thick scaled lower legs and the benefits of daily moisturizers. He reports understanding and is agreeable to daily dressing changes while inpatient. 03/26/23 Todays assessment 04/01/23 Right Leg and foot Etiology: Venous Dermatitis Wounds Measurements: 2 open wound beds remain measuring less than 1.5cm Wound Bed: moist marbled red with scattered areas of yellow adherent slough Drainage / Odor: No odor and no drainage noted Edges: ? irregular and attached Loyda wound: ?Hemosiderin staining No Induration, No Fluctuance, No Erythema noted Pain: denies pain Goals of Treatment: ? Elevate lower legs off of bed surface - Moist wound healing with xeroform and vaseline - refer to out pt [facility] specialist Left Leg Etiology: Venous Dermatitis Wounds Wound Bed: no open wounds noted at this time - newly epithelialized tissue, hemosiderin staining Drainage / Odor: No odor no drainage noted No Induration, No Fluctuance, No Erythema noted Pain: denies pain Goals of Treatment: Elevate lower legs off of bed surface - Mousturize lower legs with vaseline 03/26/23 04/01/23 Todays assessment Right Buttocks Etiology: Stage 2 Pressure Injury POA - improving Wound Bed: appears to be resolving with scattered areas of red dry and moist tissue with friction observed Drainage / Odor: None noted Edges: ? irregular Loyda wound: MASD (Moisture Associated Skin Damage)- Blanchable red tissue ? No Induration, Fluctuance or Warmth noted Pain: denies Goals of Treatment: ? Off Load Pressure and protect from moisture and friction with Triad Recommendations: 1. Turn and Reposition every 2 hours and as needed for patient comfort. 2. Off Load all bony prominences with use of pillows and heel boots if needed.? Apply Preventative foams where needed. ? 3. Monitor for incontinence and moisture control, use barrier creams when needed for prevention and treatment. 4. Provide adequate and supplemental nutrition. 5. Continue low air loss mattress. 6.Right Leg and Right Foot - Elevate Lower Legs - Cleanse with normal saline or Arron PH spray and pat dry. ?Apply barrier cream to loyda-wound, cover wound beds with cut to size Xeroform, cover with ABD pads, Gauze roll. Change Daily. 7. Buttocks - Off Load Pressure - Cleanse with PH balance spray, pat dry. ?Apply thin layer of Triad to wound bed - only pat and dab no scrub and rub when soiling occurs. Reapply thin layer PRN after each episode of incontinence. Re-consult wound care Nurse for wound deterioration or wound changes.
[2023-04-01 15:39] VITALS: BP 116/67; PULSE 85; RESP 18; TEMP 36.7; O2SAT 97
[2023-04-01 15:52] LABS: Glucose, Whole Blood 94 mg/dL (60-115)
--- NOTE | 2023-04-01 16:22 | HO.PM.IMPN ---
Subjective Subjective Date of Service: 04/01/23 Interval History: being followed for sepsis, UTI, AFib, and obstructive uropathy complaining of bilateral tongue sores, otherwise doing well Julio catheter draining yellow urine denies nausea, vomiting, no abdominal pain, no other acute issues overnight. Review of Systems all other system reviewed and negative Physical Exam Vital Signs: Vital Signs: Last Vital Signs Temp 98.0 F 04/01/23 15:39 Pulse 85 04/01/23 15:39 Resp 18 04/01/23 15:39 BP 116/67 04/01/23 15:39 Pulse Ox 97 04/01/23 15:39 O2 Del Method Room Air 04/01/23 15:39 O2 Flow Rate 3 03/31/23 07:06 BMI result Body Mass Index 32.4 Const: Other: General awake alert x3,resting comfortably in no acute distress. tongue small sores lateral margin bilaterally Neck no JVD. CVS irregular rate rhythm, Respiratory lungs clear to auscultation, no respiratory distress, no wheeze, no rhonchi. Gastrointestinal abdomen soft, nontender, bowel sounds audible, no guarding , no rigidity. Extremities no edema, chronic venous stasis changes. Neuro nonfocal psych appropriate affect Objective Data Active Medications Acetaminophen (Acetaminophen 325 Mg Tablet) 650 mg PO Q6H PRN PRN Reason: Pain, Mild (Pain Scale 1-3) Last Admin: 04/01/23 07:45 Dose: 650 mg Documented By: LILIANE Atorvastatin Calcium (Atorvastatin Calcium 40 Mg Tablet) 40 mg PO BEDTIME [facility] Last Admin: 03/31/23 21:26 Dose: 40 mg Documented By: ABHINAV Clopidogrel Bisulfate (Clopidogrel Bisulfate 75 Mg Tablet) 75 mg PO DAILY [facility] Last Admin: 04/01/23 07:40 Dose: 75 mg Documented By: LILIANE Digoxin (Digoxin 0.25 Mg Tablet) 0.25 mg PO DAILY [facility] Last Admin: 04/01/23 07:41 Dose: 0.25 mg Documented By: LILIANE Diltiazem HCl (Diltiazem Hcl 30 Mg Tablet) 30 mg PO QID [facility]; Protocol Last Admin: 04/01/23 12:39 Dose: Not Given Documented By: LILIANE Non-Admin Reason: Decreased Blood Pressure Finasteride (Finasteride 5 Mg Tablet) 5 mg PO DAILY@1200 [facility] Last Admin: 04/01/23 12:40 Dose: 5 mg Documented By: LILIANE Folic Acid (Folic Acid 1 Mg Tablet) 1 mg PO DAILY@1200 [facility] Last Admin: 04/01/23 12:40 Dose: 1 mg Documented By: LILIANE Furosemide (Furosemide 20 Mg Tablet) 20 mg PO DAILY [facility]; Protocol Last Admin: 04/01/23 07:41 Dose: 20 mg Documented By: LILIANE Ceftriaxone Sodium 1 gm/ (Sodium Chloride) 50 mls @ 100 mls/hr IV Q24H [facility] Last Infusion: 03/31/23 22:44 Dose: Infused Documented By: ABHINAV Insulin Pump (Subcutaneous Insulin Pump) 1 each SUBCUT QIDACHS [facility]; Protocol Last Admin: 04/01/23 16:08 Dose: Not Given Documented By: LILIANE Non-Admin Reason: No Insulin Coverage Lactic Acid (Ammonium Lactate 12 % Cream 140 Gm Tube) 1 appl TOPICAL DAILY PRN; Protocol PRN Reason: Wound Care Last Admin: 03/31/23 08:20 Dose: 1 appl Documented By: LILIANE Lidocaine/Diphenhydr/Alum/Mg/Simeth (Mag&Al/Sim/Diphenhyd/Lidocaine 10 Ml Oral.Susp) 10 ml PO QID [facility]; Protocol Last Admin: 04/01/23 12:40 Dose: 10 ml Documented By: LILIANE Magnesium Oxide (Magnesium Oxide 400 Mg Tablet) 400 mg PO BIDPC [facility] Last Admin: 04/01/23 07:41 Dose: 400 mg Documented By: LILIANE Melatonin (Melatonin 3 Mg Tablet) 3 mg PO BEDTIME PRN PRN Reason: Insomnia Last Admin: 03/29/23 22:51 Dose: 3 mg Documented By: CHAPARRITA Metoprolol Tartrate (Metoprolol Tartrate 100 Mg Tablet) 100 mg PO BID@0900,1700 [facility]; Protocol Last Admin: 04/01/23 07:41 Dose: 100 mg Documented By: LILIANE Nystatin (Nystatin Powder 15 Gm Bottle) 1 appl TOPICAL BID [facility]; Protocol Last Admin: 04/01/23 07:48 Dose: 1 appl Documented By: LILIANE Ondansetron HCl (Ondansetron Hcl 4 Mg/2 Ml Vial) 4 mg IVPUSH Q8H PRN PRN Reason: Nausea and Vomiting Last Admin: 03/27/23 17:20 Dose: 4 mg Documented By: SOLO Senna (Sennosides 8.6 Mg Tablet) 17.2 mg PO BEDTIME PRN PRN Reason: Constipation Silver Sulfadiazine (Silver Sulfadiazine 1 % Cream 20 Gm Tube) 1 appl TOPICAL DAILY PRN PRN Reason: Wound Care Sodium Chloride (0.9 % Sodium Chloride Flush 3 Ml Syringe) 3 ml IVFLUSH QSHIFT [facility] Last Admin: 04/01/23 07:41 Dose: 3 ml Documented By: LILIANE Warfarin Sodium (Warfarin Sodium 2.5 Mg Tablet) 2.5 mg PO MOWEFRSA@1800 [facility] Last Admin: 03/31/23 17:19 Dose: 2.5 mg Documented By: LILIANE Warfarin Sodium (Warfarin Sodium 5 Mg Tablet) 5 mg PO SUTUTH@1800 [facility] Last Admin: 03/30/23 17:06 Dose: 5 mg Documented By: FIGUEROA Labs 03/29/23 06:28 03/29/23 06:28 Labs: Laboratory Results - last 24 hr 03/31/23 04/01/23 04/01/23 20:00 07:24 08:48 Hold Purple Top SEE NOTE PT 27.0 H INR 2.2 H POC Glucose 156 H 111 Hold Yellow Top See Note 04/01/23 04/01/23 11:29 15:48 Hold Purple Top PT INR POC Glucose 105 94 Hold Yellow Top Assessment and Plan (1) Hypotension: Status: Acute (2) Atrial fibrillation with RVR: Status: Acute (3) Obstructive uropathy: Status: Acute (4) ELMIRA (acute kidney injury): Status: Acute (5) Sepsis: Status: Acute Plan 72-year-old male with well-controlled insulin-dependent type 2 diabetes, GERD, coronary artery disease s/p PCI with SELENE in 11/2022 on DAPT, HFpEF, paroxysmal atrial fibrillation, history of bilateral lower extremity DVT anticoagulated with Coumadin, chronic venous stasis dermatitis admitted for UTI with severe sepsis and obstructive uropathy with ELMIRA as well as atrial fibrillation with RVR # oral sores likely stress-induced will place on Magic mouthwash swish and spit. # acute UTI with severe sepsis, sepsis resolved, cultures no growth. Continue Ceftriaxone started 03/24, ending 04/02 for total 10 day treatment #Hypotension- on presentation, resolved following iVF and midodrine # obstructive uropathy with urinary retention, -likely multifactorial secondary to prostate enlargement as well as 5 mm obstructing stone at the left ureterovesical junction -Dr. Eastman has seen and is recommending continuing with Julio and outpatient voiding trial, component of renal failure resolved. # acute kidney injury d/t obstructive uropathy, resolved. creatinine normalized. # Chronic afib with rvr, very variable HR, But overall has improved, continue Metoprolol, Digoxin and Cardizem, not candidate for cardioversion per card.. HR in 60s, continue coumadin INR goal of 2 to 3 # stage II decubitus ulcer buttock -barrier cream, dressings and frequent position change # cutaneous candidiasis -nystatin powder # insulin-dependent type 2 diabetes- - stable blood sugars, continue diabetic diet, home insulin pump, resume metformin on discharge # CAD -continue dapt, bb, #HFpEF -no acute exacerbation, euvolemic appearing on exam -continue p.o. Lasix # BPH -continue finasteride, Flomax, outpatient DVT prophylaxis-Coumadin INR 3.2 Full code need for inpatient: given ongoing sepsis with borderline hypotension, uncontrolled afib that need med adjsutement and continuous cardiac moniting pt needs inpatient menagement. PT recommends STR, case therapist looking for bed. Quality Stroke Does the patient have a stroke diagnosis?: No VTE Prior VTE?: Yes VTE Risk Level:: Medical - moderate - high VTE Device Contraindication: Treatment Not Indicated VTE Drug Contraindication: N/A - Med Ordered
[2023-04-01 18:04] VITALS: BP 103/61
[2023-04-01] MEDS: Warfarin Sodium 5 MG TABLET PO (18:05)
[2023-04-01 19:56] VITALS: BP 124/68; PULSE 99; RESP 18; TEMP 36.8; O2SAT 97
[2023-04-01] MEDS: cefTRIAXone sodium 1 GM in 0.9 % Sodium Chloride 50 ML IV (20:24)
[2023-04-01] MEDS: Atorvastatin Calcium 40 MG TABLET PO (20:24)
[2023-04-01 20:36] LABS: Glucose, Whole Blood 125 mg/dL (60-115)
[2023-04-02] VITALS: BP 127/76; PULSE 101; RESP 20; TEMP 36.1; O2SAT 85
[2023-04-02] MEDS: 0.9 % Sodium Chloride Flush 3 ML SYRINGE IVFLUSH ×2 (00:16→08:12)
[2023-04-02 03:23] VITALS: BP 136/73; PULSE 110; RESP 20; TEMP 36.1; O2SAT 96
[2023-04-02 07:28] VITALS: BP 117/79; PULSE 99; RESP 18; TEMP 36.1; O2SAT 95
[2023-04-02 07:28] LABS: Glucose, Whole Blood 114 mg/dL (60-115)
[2023-04-02 07:47] LABS: INTERNATIONAL NORM RATIO 2.1 (0.9-1.1); Prothrombin Time 25.4 SEC (11.1-13.3)
[2023-04-02] MEDS: Mag&Al/Sim/Diphenhyd/Lidocaine 10 ML ORAL.SUSP PO ×2 (08:12→12:16)
[2023-04-02] MEDS: Subcutaneous Insulin Pump 1 EACH SUBCUT ×2 (08:12→12:17)
[2023-04-02] MEDS: Metoprolol Tartrate 100 MG TABLET PO (08:12)
[2023-04-02] MEDS: Magnesium Oxide 400 MG TABLET PO (08:12)
[2023-04-02] MEDS: Clopidogrel Bisulfate 75 MG TABLET PO (08:13)
[2023-04-02] MEDS: dilTIAZem HCL 30 MG TABLET PO (08:13)
[2023-04-02] MEDS: Digoxin 0.25 MG TABLET PO (08:13)
[2023-04-02] MEDS: Furosemide 20 MG TABLET PO (08:13)
[2023-04-02] MEDS: Nystatin Powder 15 GM BOTTLE 1 APPL TOPICAL (08:15)
--- NOTE | 2023-04-02 10:33 | MHC.CM.PN ---
Second IMM 04/02/23, Pt is medically cleared for DC, he is being transported to [facility] via ambulance.
--- NOTE | 2023-04-02 11:15 | P.DS_ITS ---
DS: Providers Provider Date of Service: 04/02/23 Date of admission: 03/24/23 23:18 Primary care physician: Katie Gaytan MD Consults: 03/24/23 23:17 Consult to Urology Routine Consulting Provider: Aamir Eastman Reason for consultation: obstructive uropathy 03/24/23 23:41 Consult to Cardiology Routine Consulting Provider: [facility] Reason for consultation: afib rvr Has provider been notified: Yes 03/26/23 09:57 Consult to Wound Care Routine Reason for consultation: chronic wounds- buttocks, heels, BLE DS: Diagnosis Discharge Diagnosis (1) Hypotension: Status: Acute (2) Atrial fibrillation with RVR: Status: Acute (3) Obstructive uropathy: Status: Acute (4) ELMIRA (acute kidney injury): Status: Acute (5) Sepsis: Status: Acute DS: Summary Hospital Course Hospital Course: history of presenting illness: Date of Service: 03/24/23 Attending physician on admission: Gil Christopher Chief Complaint: hypotension 72-year-old male with well-controlled insulin-dependent type 2 diabetes, GERD, coronary artery disease s/p PCI with SELENE in 11/2022 on DAPT, HFpEF, paroxysmal atrial fibrillation, history of bilateral lower extremity DVT anticoagulated with Coumadin, chronic venous stasis dermatitis presented to the ED earlier today from PCP office for evaluation of hypotension. Per the patient, he was seen at PCP office and blood pressure was 55/38 and was reporting confusion and lethargy. Per the patient, he has had several provider visits in the last few weeks and blood pressure has been low. He is no longer taking his blood pressure medications except for his Lasix. He is also reporting urinary retention. He had Julio catheter in place for about 1 month and was seen in urology office on Friday where it was removed and he was able to void. He was started on finasteride at that time. However, over the weekend reported recurrence of retention with limited urinary output. He denies any fevers, chills, abdominal pain, nausea, vomiting, dysuria, hematuria, increased urinary frequency or urgency. No shortness of breath, palpitations, lightheadedness, syncope, or chest pain. On arrival, blood pressure is soft but vitals otherwise stable. Per ED provider, patient did have at least 2 episodes of hypotension though this is unfortunately not documented. He was given 2 L IV fluid with improvement in blood pressure to 96/57 on admission. He is tachycardic with heart rates rang ing from /08-130s noted to be in atrial fibrillation. He does have leukocytosis of 16.5. He has a stable chronic microcytic anemia. INR 2.5, goal 2.0-3.0. Creatinine 2.20, baseline 0.90, BUN 63. Sodium 133, potassium 5.2, electrolytes otherwise within normal limits. Glucose 137. Total bilirubin 1.6, direct bilirubin 0.7. AST/ALT normal. Troponin below detectable limits. Urinalysis significant for 3+ leukocytes, negative nitrites, 2+ blood, positive urinary sediment, 3+ bacteria. Negative for influenza, COVID-19, RSV. CT chest without any evidence of acute cardiopulmonary abnormality but showing chronic linear subsegmental atelectasis and scarring, unchanged from prior imaging. CT abdomen/pelvis shows a 5 mm stone at the left ureteropelvic junction with mild left-sided hydronephrosis and hydroureter. There is also asymmetric perinephric stranding on the right with subtle heterogenicity to the lower pole collecting system. Prostate is also noted to be enlarged an ill-defined. There is also tiny bubble of air in the bladder lumen possibly related to recent Julio catheter removal versus infectious etiology. In the ED, has received 2 L IV NS and 2 g IV ceftriaxone. Patient remains in AFib with RVR and will be given 2.5 mg IV metoprolol. Patient to be admitted for severe sepsis secondary to UTI with obstructive uropathy and atrial fibrillation with RVR. hospital course: 72-year-old male with well-controlled insulin-dependent type 2 diabetes, GERD, coronary artery disease s/p PCI with SELENE in 11/2022 on DAPT, HFpEF, paroxysmal atrial fibrillation, history of bilateral lower extremity DVT anticoagulated with Coumadin, chronic venous stasis dermatitis admitted for UTI with severe sepsis and obstructive uropathy with ELMIRA as well as atrial fibrillation with RVR # acute UTI with severe sepsis, patient treated with IV ceftriaxone blood cultures showed no growth urine culture grew multiple organisms patient is being discharged on 1 more day of by mouth Ceftin to finish a total 10 day course of antibiotic, patient on admission was noted to be hypotensive treated with IV fluid in midodrine with normalization of blood pressure. # oral sores likely stress-induced Continue Magic mouthwash swish and spit for 1 more week. # acute kidney injury due to obstructive uropathy with urinary retention, - likely multifactorial secondary to prostate enlargement as well as 5 mm obstructing stone at the left ureterovesical junction, evaluated by Dr. Eastman he recommend to continue Julio catheter an outpatient voiding trial, component of renal failure resolved, continue Flomax and Proscar.. # Chronic afib with rvr, noted to have variable heart rate was placed on digoxin and Cardizem and dose of metoprolol increased to 100 mg b.i.d. heart rate now stable in 60s continue Coumadin with INR goal of 2-3 # stage II decubitus ulcer buttock - continue barrier cream and frequent position change. # insulin-dependent type 2 diabetes- - stable blood sugars, continue diabetic diet, Trulicity and home insulin pump, metformin held due to diarrhea resume if noted to have elevated blood sugars. # CAD -continue dapt, bb, #HFpEF -no acute exacerbation, euvolemic appearing continue p.o. Lasix. Time Attestation Discharge coordination time: Greater than 30 minutes Quality: Safe Use of Opioids Does Pt have an Active Cancer Diagnosis on the Problem List?: No Quality: Stroke Does the patient have a stroke diagnosis?: No Physical Exam Vital Signs: Vital Signs: Last Vital Signs Temp 96.9 F 04/02/23 07:28 Pulse 99 04/02/23 07:28 Resp 18 04/02/23 07:28 BP 117/79 04/02/23 07:28 Pulse Ox 95 04/02/23 07:28 O2 Del Method Room Air 04/02/23 07:28 O2 Flow Rate 3 03/31/23 07:06 BMI result Body Mass Index 32.4 Const: Other: General awake alert x3,resting comfortably in no acute distress. tongue small sores lateral margin bilaterally Neck no JVD. CVS irregular rate rhythm, Respiratory lungs clear to auscultation, no respiratory distress, no wheeze, no rhonchi. Gastrointestinal abdomen soft, nontender, bowel sounds audible, no guarding , no rigidity. Extremities no edema, chronic venous stasis changes, superficial venous ulcer right lower leg. Neuro non focal psych appropriate affect DS: Data Data Completed and Pending Labs on day of discharge: Laboratory Results - last 24 hr 04/01/23 04/01/23 04/01/23 11:29 15:48 20:32 Hold Purple Top PT INR POC Glucose 105 94 125 H 04/02/23 04/02/23 07:21 07:25 Hold Purple Top SEE NOTE PT 25.4 H INR 2.1 H POC Glucose 114 Discharge Plan Discharge Anticipated Discharge Date/Time: 04/02/23 10:48 Patient Disposition: Xfer SNF Discharge Diagnosis: acute UTI with severe sepsis obstructive uropathy with urinary retention acute kidney injury chronic persistent AFib with RVR stage II decubiti ulcer oral sores diabetes Referrals: [facility] [Outside] - 1 Week Katie Gaytan MD [Primary Care Provider] - 1 Week Discharge Medications: New metoprolol tartrate 100 mg Tablet 100 mg PO BID@0900,1700 Qty: 60 0RF Protocol: Hold for SBP/HR < HOLD for SBP < : 90 HOLD for HR < : 60 digoxin 250 mcg (0.25 mg) Tablet 0.25 mg PO DAILY Qty: 30 0RF diltiazem HCl [Cardizem CD] 120 mg capsule,extended release 24hr 120 mg PO DAILY Qty: 30 0RF Mag&Al/Sim/Diphenhyd/Lidocaine [Magic Mouthwash] 10 ml PO QID Qty: 300 0RF Rx Instructions: use for 7 days cefuroxime axetil 250 mg tablet 250 mg PO BID Qty: 2 0RF Continued silver sulfadiazine 1 % cream 1 appl topical DAILY PRN (Reason: Wound Care) ammonium lactate 12 % cream 1 appl topical DAILY PRN (Reason: Wound Care) (DME) V-GO 20 Device MISCELLANEOUS warfarin 5 mg tablet 5 mg PO SUTUTH@1800 furosemide 20 mg tablet 20 mg PO DAILY Qty: 30 0RF finasteride 5 mg tablet 5 mg PO DAILY@1200 clopidogrel 75 mg tablet 75 mg PO DAILY (DME) FreeStyle Pat 2 [place] Misc See Rx Instructions .ROUTE .MEDSUPPLY Qty: 1 Rx Instructions: As directed (DME) FreeStyle Pat 2 Sensor Kit See Rx Instructions .ROUTE .MEDSUPPLY Qty: 1 Rx Instructions: As directed atorvastatin 40 mg tablet 40 mg PO BEDTIME insulin lispro [Humalog U-100 Insulin] 100 unit/mL solution See Rx Instructions .ROUTE .COMPLEX Rx Instructions: insulin pump folic acid 1 mg tablet 1 mg PO DAILY@1200 warfarin 5 mg tablet 2.5 mg PO MOWEFRSA@1800 Trulicity 1.5 mg/0.5 mL pen injector 1.5 mg subcut TH@0900 tamsulosin 0.4 mg capsule 0.4 mg PO BEDTIME 30 Days Qty: 30 1RF Held magnesium oxide 400 mg (241.3 mg magnesium) Tablet 400 mg PO BIDPC Qty: 60 0RF Hold Instructions: Resume on 04/07/23. Discontinued metoprolol tartrate 75 mg tablet 75 mg PO BID@0900,1700 metformin 1,000 mg tablet 1,000 mg PO BID@1200,2100 Discharge Orders: Discharge Order (Routine); Ordered 04/02/23 Ordered By: Melanie Bonds Diet: Diabetic diet Activity on Discharge: As tolerated Stand Alone Forms: Patient Portal Discharge page Care Plan Goals: UTI/ sepsis resolved stage II decubitus ulcer buttock continue frequent positioning change, barrier cream continue bilateral lower extremity dressing change with Xeroform /ABD pad and gauze wrap continue Magic mouthwash for 1 week Health Concerns: atrial fibrillation with RVR diabetes obstructive uropathy with urinary retention Plan of Treatment: outpatient follow-up with Urology in 1 week call for appointment continue indwelling Julio catheter outpatient follow-up with primary manager credit risk call for appointment outpatient follow-up with primary care physician Assessment: as above
[2023-04-02] MEDS: dilTIAZem HCL SR 90 MG CAP.ER.12H PO (11:27)
[2023-04-02 11:50] LABS: Glucose, Whole Blood 106 mg/dL (60-115)
[2023-04-02] MEDS: Finasteride 5 MG TABLET PO (12:16)
[2023-04-02] MEDS: Folic Acid 1 MG TABLET PO (12:16)
== END 2023-04-02 13:22 | disposition skilled nursing facility (03) | DRG 872 ==
LOC: HO.ED 21:42 → HO.EDOVER 23:30 → HO.IMC 03-25 14:47
PROVIDERS: Internal Medicine; Physician Assistant Medical; Admitting Provider Physician Assistant; Emergency Provider Emergency Medicine; PCP Internal Medicine; Visit Provider Hospitalist
DX: A41.9 Sepsis, unspecified organism (principal); N17.9 Acute kidney failure, unspecified; I50.32 Chronic diastolic (congestive) heart failure; N13.8 Other obstructive and reflux uropathy; L97.819 Non-pressure chronic ulcer of other part of right lower leg with unspecified severity; N13.6 Pyonephrosis; N40.1 Benign prostatic hyperplasia with lower urinary tract symptoms; R65.20 Severe sepsis without septic shock; R33.8 Other retention of urine; I87.2 Venous insufficiency (chronic) (peripheral); I25.10 Atherosclerotic heart disease of native coronary artery without angina pectoris; E66.9 Obesity, unspecified; K13.79 Other lesions of oral mucosa; Z68.32 Body mass index [BMI] 32.0-32.9, adult; L89.312 Pressure ulcer of right buttock, stage 2; B37.2 Candidiasis of skin and nail; Z20.822 Contact with and (suspected) exposure to COVID-19; E11.9 Type 2 diabetes mellitus without complications; I95.9 Hypotension, unspecified; E87.5 Hyperkalemia; Z95.5 Presence of coronary angioplasty implant and graft; I48.0 Paroxysmal atrial fibrillation; Z91.148 Patient's other noncompliance with medication regimen for other reason; Z86.718 Personal history of other venous thrombosis and embolism; Z79.4 Long term (current) use of insulin; Z79.01 Long term (current) use of anticoagulants; Z79.02 Long term (current) use of antithrombotics/antiplatelets; Z79.85 Long-term (current) use of injectable non-insulin antidiabetic drugs; Z79.899 Other long term (current) drug therapy
CPT/HCPCS: 0241U; 36415; 71250; 74176; 80048; 80053; 81001; 81003; 82248; 82947; 83605; 83690; 83735; 84484; 85025; 85027; 85610; 85730; 86850; 86900; 86901; 87040; 87086; 87493; 93005; 97162; 97530; 99285; C1758; J0696; J1160; J2405

== ENCOUNTER → 2023-03-24 13:00 | Outpatient (BNV) | payer MEDICARE, SELFPAY | PROVIDERS: Emergency Provider Emergency Medicine; PCP Internal Medicine; Visit Provider Internal Medicine | DX: I48.91 Unspecified atrial fibrillation (principal); I49.3 Ventricular premature depolarization | CPT/HCPCS: 93010 ==

== ENCOUNTER → 2023-03-24 23:18 | Outpatient (BNV) | payer MEDICARE, SELFPAY | PROVIDERS: Admitting Provider Physician Assistant; Emergency Provider Emergency Medicine; PCP Internal Medicine; Visit Provider Internal Medicine | DX: I48.91 Unspecified atrial fibrillation (principal); I95.9 Hypotension, unspecified; N13.9 Obstructive and reflux uropathy, unspecified; N17.9 Acute kidney failure, unspecified | CPT/HCPCS: 99223; 99233 ==

== ENCOUNTER → 2023-03-24 23:18 | Outpatient (BNV) | payer MEDICARE, SELFPAY | PROVIDERS: Admitting Provider Physician Assistant; Emergency Provider Emergency Medicine; PCP Internal Medicine; Visit Provider Physician Assistant | DX: I48.91 Unspecified atrial fibrillation (principal); N17.9 Acute kidney failure, unspecified; A41.9 Sepsis, unspecified organism; N13.9 Obstructive and reflux uropathy, unspecified; I95.9 Hypotension, unspecified | CPT/HCPCS: 99222; 99232; 99233; 99239 ==

== ENCOUNTER 2023-04-23 08:42 | Outpatient (AMB) | payer MEDICARE, SELFPAY ==
--- NOTE | 2023-04-23 08:49 | MHC.OFFVIS ---
Intake Intake Visit Reasons: repeat voiding trial Intake Note: Patient presents for follow up visit for voiding trial Urology Medications: finasteride, tamsulosin Blood Thinner: clopidogrel, warfarin Leg Man Required: No Accompanied by: Self / Same As Patient Allergies peanut [PEANUTS] Allergy (Unknown, Verified 04/23/23 21:04) UNK wool [WOOL] Allergy (Unknown, Verified 04/23/23 21:04) UNK peanuts Allergy (Unknown, Uncoded 04/23/23 21:04) hives Medication List - Last Reconciled 04/23/23 by ANA Pearce- ammonium lactate 12% 1 appl topical DAILY PRN atorvastatin 40 mg PO BEDTIME clopidogrel 75 mg PO DAILY digoxin 0.25 mg PO DAILY diltiazem HCl (Cardizem CD) 120 mg PO DAILY dulaglutide (Trulicity) 1.5 mg subcut TH@0900 finasteride 5 mg PO DAILY 30 days flash glucose scanning reader (PittarelloStyle Pat 2 [place]) As directed flash glucose sensor (PittarelloStyle Pat 2 Sensor kit) As directed folic acid 1 mg PO DAILY@1200 furosemide 20 mg PO DAILY insulin lispro (Humalog U-100 Insulin) insulin pump [Mag&Al/Sim/Diphenhyd/Lidocaine [Magic Mouthwash] 10 mL PO QID] magnesium oxide 400 mg PO BIDPC metoprolol tartrate 100 mg See Protocol PO BID@0900,1700 silver sulfadiazine 1% 1 appl topical DAILY PRN sub-q insulin device, 20 unit (V-GO 20 device) tamsulosin 0.4 mg PO BEDTIME 30 days warfarin 5 mg PO SUTUTH@1800 warfarin 2.5 mg PO MOWEFRSA@1800 HPI HPI Comments History of Present Illness Details Randy is a 72-year-old male patient of Dr. Gaytan was accompanied by his significant other at today's office visit. He has a PMH of diabetes, GERD, CAD s/p PCI with SELENE in 11/2022, atrial fibrillation, history of bilateral lower extremity DVT anticoagulated with Coumadin, chronic venous stasis dermatitis, and anasarca. He presents to the office today for a follow up of his urinary retention. Of note, patient was seen approximately 1 month ago as a new patient for urinary retention at which time and in-office voiding trial was performed and the patient was able to independently void however, approximately 4 days after his last office visit here he seeked emergency room care for hypotension and was admitted and treated for acute UTI with sepsis, acute kidney injury due to obstructive uropathy with urinary retention likely multifactorial secondary to prostate enlargement as well as a 5 mm obstructing stone on the left, and chronic AFib with RVR. He reports after discharge from [facility] he went to rehab however he has since been home. In office voiding trial performed. Julio catheter was removed and 125 mL of normal saline was instilled into the bladder. Patient was able to void approximately 120 mL independently. Discussed at length potential causes for urinary retention. This was discussed at length with the patient and his today. Discussed obtaining retroperitoneal ultrasound for further assessment evaluation of patient's obstructing stone as well as for assessment of bladder and prostate given 2nd episode of urinary retention. Will obtain PSA in 6-8 weeks given recent indwelling Julio. Discussed follow up in office cystoscopy given patient with multiple urinary retention episodes. Discussed importance of drinking water regularly and calling office or seeking emergency room care if unable to void. Discussed importance of managing diabetes and correlation of uncontrolled diabetes on the bladder. [facility] Medical History Atrial fibrillation with RVR BPH (benign prostatic hyperplasia) Chronic venous stasis dermatitis GERD (gastroesophageal reflux disease) CAD (coronary artery disease) Type 2 diabetes mellitus (HFpEF) heart failure with preserved ejection fraction Atrial fibrillation Surgical History Status post percutaneous transluminal angioplasty (RESEARCH PHLEBOTOMIST) with stent placement Family History Father Kidney cancer, primary, with metastasis from kidney to other site Heart disease Social History Household Members: Significant Other Housing: House Alcohol intake: never Patient Tobacco Use Status: Never used Tobacco Second Hand Smoke Exposure: No Advance Directives Date on File: 02/13/23 service: No Review of Systems Const Reports as per HPI Eyes Reports no additional complaints ENT Reports no additional complaints Card Reports as per HPI Resp Reports no additional complaints GI Reports as per HPI Reports as per HPI Musc Reports as per HPI Skin/Breast Reports as per HPI Neuro Reports no additional complaints Psych Reports no additional complaints Endo Reports as per HPI Jordan/Lymph Reports as per HPI Aller/Immun Reports no additional complaints Physical Exam Const General: cooperative, comfortable, no acute distress, well developed, alert and awake Nutritional Appearance: overweight Orientation/consciousness: patient oriented x3 HEENT Head: Yes normal to inspection, Yes No palpable skull fracture present and Yes atraumatic Eyes General: appearance normal, both eyes and all related structures Neck Neck: Yes normal visual inspection Chest Chest palpation & inspection: normal inspection of the chest Resp Effort & Inspection: normal respiratory effort and able to speak in complete sentences Cardio Rate: regular rate GI Inspection: Yes Abdominal panniculus present General: Yes no CVA tenderness Back/Spine/Pelvis Back: no CVA tenderness Skin Other: Bilateral lower extremities with anasarca with blebs and leaking lymphedma. Skin appears discolored and dry. Neuro General: patient oriented x3 Psych Other: unkempt in appearance Mental Status: mental status grossly normal Speech and movement: Normal speech and movement present and Clear speech present Affect: normal affect Attitude: cooperative Thought process: Normal thought process present Thought content: Normal thought content present Insight: Fair insight present (Psych) Judgement: Fair judgement present (Psych) Office Procedures Bladder/Catheter Procedure Details: 120 mls sterile water instilled into bladder, 18 fr cath removed, pt tolerated removal well. MA to room to bladder scan [id number] of Bladder Procedure code (CPT) selection complete Assessment & Plan Assessment & Plan (1) Urinary retention: Code(s): R33.9 - Retention of urine, unspecified Plan In office voiding trail performed; patient able to successfully void independently Discussed at length potential causes of urinary retention. Continue tamsulosin and finasteride as discussed and prescribed Will obtain retroperitoneal ultrasound for further assessment and evaluation. Will obtain PSA for further assessment evaluation however in 6 weeks given recent indwelling Julio catheter. Discussed and stressed the importance of managing diabetes for urinary symptoms as well as overall health and well-being. Discussed inoffice cystoscopy for further evaluation given multiple episodes of urinary retention Discussed and stressed the importance drinking regularly and seeking emergency room care and or calling office during office hours if unable to void. Follow up in office cystoscopy with imaging, and labs to be completed prior; or sooner with any issues, concerns, or questions. Orders: Orders AMB Bladder/Catheter Procedure Today R33.9 - Retention of urine, unspecified AMB Post Void Residual by ultrasound Today R33.9 - Retention of urine, unspecified Patient Instructions: The patient had an opportunity to ask questions regarding the treatment plan. All questions were answered. Physical exam, labs, and imaging were discussed and reviewed in detail. As well as risks, benefits, and discussion of treatment choices. No major barriers to understanding were identified. The patient expressed understanding and agreement with the above treatment plan. The patient was made aware they should contact our office by phone for worsening of their current condition, the appearance of new symptoms, or with any questions or concerns. Compliance is encouraged with any medications and follow up testing that is ordered. It is a privilege to be allowed the opportunity to participate in? your urological care.? Again, if you have any questions or concerns If you have any questions or concerns please do not hesitate to contact me. The office is [phone]. This note is constructed using voice recognition software. While every effort has been made to ensure accuracy vineyard worker errors may have been included. Yours sincerely, ANA Pearce-TIMO Coding Level of Care Code Est Pt Level 4 (13389) Diagnoses Urinary retention R33.9 CPT Codes Bladder/Catheter Procedure - CPT: 21792-Yhasewefne of Bladder ([id number]) Time Spent (min) 40
== END 2023-04-23 09:34 | disposition home or self-care (01) ==
PROVIDERS: PCP Internal Medicine; Visit Provider Nurse Practitioner Family
DX: R33.9 Retention of urine, unspecified (principal)
CPT/HCPCS: 51700; 99214

== ENCOUNTER → 2023-04-23 08:42 | Outpatient (BNVA) | payer MEDICARE, SELFPAY | PROVIDERS: PCP Internal Medicine; Visit Provider Nurse Practitioner Family | DX: R33.9 Retention of urine, unspecified (principal) | CPT/HCPCS: 51700; 99212 ==

== ENCOUNTER 2023-06-12 12:07 | Outpatient (REF) | payer MEDICARE, SELFPAY ==
[2023-06-12 13:56] LABS: Prostate Specific Antigen 2.12 ng/mL (<0.05-4.0)
== END 2023-06-12 12:08 | disposition home or self-care (01) ==
LOC: HO.10HDL 12:07
PROVIDERS: Visit Provider Nurse Practitioner Family
DX: N40.0 Benign prostatic hyperplasia without lower urinary tract symptoms (principal); Z12.5 Encounter for screening for malignant neoplasm of prostate
CPT/HCPCS: 36415; 84153

== ENCOUNTER 2023-06-17 11:00 | Outpatient (AMB) | payer MEDICARE, SELFPAY ==
--- NOTE | 2023-06-17 11:11 | A.OFFVIS_ITS ---
Intake Intake Visit Reasons: Cysto(Failed VT)no psa/us Intake Note: Patient is Present for Cystoscopy Urology Med: Finasteride, Tamsulosin Antibiotic Allergy: None Blood Thinner: Clopidogrel, warfarin URO- G Disposable Cystoscope lot: [id number] exp: 09-01-2024 Allergies peanut [PEANUTS] Allergy (Unknown, Verified 06/17/23 11:12) UNK wool [WOOL] Allergy (Unknown, Verified 06/17/23 11:12) UNK peanuts Allergy (Unknown, Uncoded 06/17/23 11:12) hives Medication List - Last Reconciled 06/17/23 by Aamir Eastman MD ammonium lactate 12% 1 appl topical DAILY PRN atorvastatin 40 mg PO BEDTIME clopidogrel 75 mg PO DAILY digoxin 0.25 mg PO DAILY diltiazem HCl (Cardizem CD) 120 mg PO DAILY dulaglutide (Trulicity) 1.5 mg subcut TH@0900 finasteride 5 mg PO DAILY 90 days flash glucose scanning reader (LeisureLogixStyle Pat [address]) As directed flash glucose sensor (FreeStyle Pat 2 Sensor kit) As directed folic acid 1 mg PO DAILY@1200 furosemide 20 mg PO DAILY insulin lispro (Humalog U-100 Insulin) insulin pump [Mag&Al/Sim/Diphenhyd/Lidocaine [Magic Mouthwash] 10 mL PO QID] magnesium oxide 400 mg PO BIDPC metoprolol tartrate 100 mg See Protocol PO BID@0900,1700 silver sulfadiazine 1% 1 appl topical DAILY PRN sub-q insulin device, 20 unit (V-GO 20 device) tamsulosin 0.4 mg PO BEDTIME 90 days warfarin 5 mg PO SUTUTH@1800 warfarin 2.5 mg PO MOWEFRSA@1800 HPI HPI Comments History of Present Illness Details Randy is a 72-year-old male patient of Dr. Gaytan was accompanied by his significant other at today's office visit. - urinary retention - incomplete bladder emptying - nephrolithiasis Here for cystoscopy today Enlarged anterior lobe Discussed potential procedures. Remains on stent recent stent placement October 2022 Would continue medical therapy for another [address] scan reviewed small stone proximal left ureter No current symptoms Will need repeat imaging for stone passage He has a PMH of diabetes, GERD, CAD s/p PCI with SELENE in 11/2022, atrial fibrillation, history of bilateral lower extremity DVT anticoagulated with Coumadin, chronic venous stasis dermatitis, and anasarca. Lower urinary tract symptoms Episode of retention late 2022 Failed initial voiding trial Was able to pass voiding trial after initiation of tamsulosin and finasteride Cystoscopy - enlarged anterior lobe Nephrolithiasis Found incidentally during admission for urinary retention Imaging - 04/12 CT scan 4 mm proximal left urete oli stone No clinical impact PSA 06/12 2.2 PFSH Medical History Atrial fibrillation with RVR BPH (benign prostatic hyperplasia) Chronic venous stasis dermatitis GERD (gastroesophageal reflux disease) CAD (coronary artery disease) Type 2 diabetes mellitus (HFpEF) heart failure with preserved ejection fraction Atrial fibrillation Surgical History Status post percutaneous transluminal angioplasty (POLICE CAPTAIN SENIOR) with stent placement Family History Father Kidney cancer, primary, with metastasis from kidney to other site Heart disease Social History Household Members: Significant Other Housing: House Alcohol intake: never Patient Tobacco Use Status: Never used Tobacco Second Hand Smoke Exposure: No Advance Directives Date on File: 02/13/23 service: No Review of Systems Const Denies chills and Denies fever(s) Card Reports no additional complaints and Denies syncope Resp Denies cough GI Denies abdominal pain and Denies heartburn Reports as per HPI and Denies change in libido Neuro Denies syncope Psych Denies change in libido Endo Denies change in libido Physical Exam Const General: cooperative, healthy appearing, comfortable and no acute distress Orientation/consciousness: patient oriented x3 HEENT Face and sinus: Yes normal facial exam Mouth: moist mucous membranes Neck Neck: Yes normal visual inspection, Yes full ROM and Yes trachea midline Chest Chest palpation & inspection: normal inspection of the chest Resp Effort & Inspection: normal respiratory effort, able to speak in complete sentences and no respiratory distress GI Inspection: Yes normal to inspection Back/Spine/Pelvis Cervical Spine: normal cervical lordosis Thoracic/Lumbar Spine: thoracic and lumbar spine normal to inspection Skin General skin exam: no rashes or lesions noted Neuro General: patient oriented x3, gait normal, tone normal and moves all extremities Extrem General: Yes normal to inspection and Yes capillary refill normal Office Procedures Cystoscopy Consent Discussed risk and benefit or proposed procedure with the patient. Information consent for procedure given to the patient. Discussed technical aspects, risks, benefits and alternatives in full. Addressed all of the patient's questions and concerns regarding the procedure. The patient demonstrated knowledge and understanding. They wish to proceed with this procedure. Preparation The patient was prepped in the usual manner. A finger grip machine operator was present and in the room. Genitalia was prepped with betadine solution in a sterile manner. Lidocaine Jelly 2% was placed into the urethra and 16Fr flexible Olympus cystoscope was inserted into the meatus after adequate lubrication. Procedure Meatus normal Urethra anterior and posterior urethra normal Prostatic Urethra enlarged anterior lobe Bladder examination with retroflexion of cystoscope Bladder Orifices normal shape and position Bladder Capacity medium Trabeculations - Cellule Formation - Diverticulum Formation - Mucosal Erythema - Bladder Tumor - 44715-[id number] DISPOSABLE SCOPE URO-G FLEXIBLE SCOPE Procedure code (CPT) selection complete Office Meds lidocaine HCl 2 % mucosal jelly in applicator Performing Provider: Aamir Eastman MD [place] [facility] [facility] Administered by: Hussain Chris LPN on 06/17/23 11:25 Dose Route Admin Location Dispensed Lot Number Expiration Date ND Statistical Technician 10 mL intra-urethral 10 mL nitrofurantoin monohydrate/macrocrystals 100 mg capsule Performing Provider: Aamir Eastman MD [place] [facility] [facility] Administered by: Hussain Chris LPN on 06/17/23 11:25 Dose Route Admin Location Dispensed Lot Number Expiration Date ND Statistical Technician 100 mg PO 1 cap naproxen 500 mg tablet Performing Provider: Aamir Eastman MD [place] [facility] [facility] Administered by: Hussain Chris LPN on 06/17/23 11:25 Dose Route Admin Location Dispensed Lot Number Expiration Date ND Statistical Technician 500 mg PO 1 tab Results AMB Urinalysis, Automated UA Leukoctes 15 Sindi/uL Last Edit by ARLEY Kelly on 06/17/23 11:21 UA Nitrite Negative Last Edit by ARLEY Kelly on 06/17/23 11:21 UA Urobilinogen 0.2 mg/dL Last Edit by JAEL KellyA on 06/17/23 11:2 1 UA Protein 30 mg/dL Last Edit by Nida Kaufman RMA on 06/17/23 11:21 UA pH 5.5 Last Edit by Nida Kaufman, RMA on 06/17/23 11:21 UA Blood 0 Koko/uL Last Edit by Nida Kaufman, RMA on 06/17/23 11:21 UA Specific Tillson 1.020 Last Edit by Nida Kaufman RMA on 06/17/23 11: 21 UA Ketone Negative Last Edit by Nida Kaufman RMA on 06/17/23 11:21 UA Bilirubin 0 mg/dL Last Edit by Nida Kaufman RMA on 06/17/23 11:21 UA Glucose 0 mg/dL Last Edit by Nida Kaufman RMA on 06/17/23 11:21 Results Reviewed Results Reviewed: Laboratory Last Values Urine pH (Auto) 5.5 06/17/23 11:15 Specific Tillson (Auto) 1.020 06/17/23 11:15 Urine Protein (Auto) 30 mg/dL 06/17/23 11:15 Glucose (UA)(Auto) 0 mg/dL 06/17/23 11:15 Urine Ketones (Auto) Negative 06/17/23 11:15 Urine Blood (Auto) 0 Koko/uL 06/17/23 11:15 Urine Nitrite (Auto) Negative 06/17/23 11:15 Urine Bilirubin (Auto) 0 mg/dL 06/17/23 11:15 Urine Urobilinogen (Auto) 0.2 mg/dL 06/17/23 11:15 Leukocyte Esterase (Auto) 15 Sindi/uL 06/17/23 11:15 Assessment & Plan Assessment & Plan (1) Urinary retention: Code(s): R33.9 - Retention of urine, unspecified (2) Calculus of left kidney: Code(s): N20.0 - Calculus of kidney Plan Continue tamsulosin and finasteride Two month follow-up renal ultrasound nurse practitioner Orders: Orders US renal BI 2 Months N20.0 - Calculus of kidney AMB Cystoscopy Today R33.9 - Retention of urine, unspecified AMB Urinalysis Automated Today Z13.9 - Encounter for screening, unspecified Patient Instructions: Imaging studies, laboratory and physical exam results were discussed and reviewed in detail. No major barriers to patient understanding were identified. An opportunity to ask questions regarding the treatment plan was provided. All questions were answered. The patient expressed understanding and agreement with the above treatment plan. The patient is aware they should contact our office by phone for worsening of their current condition or the appearance of new urologic symptoms. Compliance is encouraged with any medications and followup testing that is ordered. It is a privilege to participate in the urologic care of your patient. If you have any questions or concerns regarding treatment for the above conditions, or other urologic issues, please do not hesitate to contact me. The office telep heaven contact is [phone]. This note is constructed using voice recognition software. While every effort has been made to ensure accuracy biomathematician errors may have been included. Yours sincerely, Dr Aamir Eastman MD, [facility] - Urology Providers of Expert, Compassionate Care for the Genitourinary System Coding Level of Care Code Est Pt Level 4 (05379) Diagnoses Urinary retention R33.9 Calculus of left kidney N20.0 CPT Codes Cystoscopy - CPT: 60868-Yqmutslsxk ([id number])
== END 2023-06-17 11:59 | disposition home or self-care (01) ==
PROVIDERS: PCP Internal Medicine; Visit Provider Urology
DX: R33.9 Retention of urine, unspecified (principal); N20.0 Calculus of kidney; Z13.9 Encounter for screening, unspecified
CPT/HCPCS: 52000; 99214

== ENCOUNTER → 2023-06-17 11:00 | Outpatient (BNVA) | payer MEDICARE, SELFPAY | PROVIDERS: PCP Internal Medicine; Visit Provider Urology | DX: N20.0 Calculus of kidney (principal); R33.9 Retention of urine, unspecified | CPT/HCPCS: 52000; 81003; 99212 ==

== ENCOUNTER 2023-07-30 11:09 | Outpatient (REF) | payer MEDICARE, SELFPAY ==
--- NOTE | ~2023-07-30 | US_ITS ---
EXAMINATION: US RETROPERITONEAL LIMITED (RENAL ONLY) CLINICAL INFORMATION: Calculus of kidney. COMPARISON: CT abdomen and pelvis 03/24/2023. Ultrasound kidneys 09/24/2017. TECHNIQUE: Real-time imaging of the kidneys. FINDINGS: RIGHT KIDNEY: 11.9 x 4.6 x 4.9 cm (SAG x AP x TRV). The kidney is normal in size, contour, and echogenicity. Renal cortical thickness is normal. Punctate nonobstructing calculus in the mid kidney. No hydronephrosis. There are 2 thinly septated cyst in the lower pole measuring 1.3 and 1.5 cm. No follow-up imaging is recommended. LEFT KIDNEY: 12.9 x 5.6 x 5.4 cm (SAG x AP x TRV). The kidney is normal in size, contour, and echogenicity. Renal cortical thickness is normal. No focal parenchymal lesions or hydronephrosis. 3 mm nonobstructing calculus in the lower pole. US/US renal BI IMPRESSION: Bilateral nonobstructing renal calculi. No hydronephrosis.
== END 2023-07-30 11:10 | disposition home or self-care (01) ==
LOC: HO.US 11:09
PROVIDERS: PCP Internal Medicine; Visit Provider Urology
DX: N20.0 Calculus of kidney (principal)
CPT/HCPCS: 76775

== ENCOUNTER 2023-08-15 10:37 | Outpatient (AMB) | payer MEDICARE, SELFPAY ==
--- NOTE | 2023-08-15 10:42 | A.OFFVIS_ITS ---
Intake Visit Reasons: 2m/US Intake Note: Patient presents for follow up visit for urinary retention and ultrasound results Imagin07/30/23 Urology Medications: finasteride, tamsulosin Blood Thinner: clopidogrel, warfarin PVR: 18ml's Batch Unloader Required: No Accompanied by: Self / Same As Patient Allergies peanut [PEANUTS] Allergy (Unknown, Verified 08/15/23 11:08) UNK wool [WOOL] Allergy (Unknown, Verified 08/15/23 11:08) UNK peanuts Allergy (Unknown, Uncoded 08/15/23 11:08) hives Medication List - Last Reconciled 08/15/23 by ANA Pearce-TIMO ammonium lactate 12% 1 appl topical DAILY PRN atorvastatin 40 mg PO BEDTIME clopidogrel 75 mg PO DAILY digoxin 0.25 mg PO DAILY diltiazem HCl CD (Cardizem CD) 120 mg PO DAILY dulaglutide (Trulicity) 1.5 mg subcut TH@0900 finasteride 5 mg PO DAILY 90 days flash glucose scanning reader (Sophia LearningStyle Pat 2 [place]) As directed flash glucose sensor (FreeStyle Pat 2 Sensor kit) As directed folic acid 1 mg PO DAILY@1200 furosemide 20 mg PO DAILY insulin lispro (Humalog U-100 Insulin) insulin pump [Mag&Al/Sim/Diphenhyd/Lidocaine [Magic Mouthwash] 10 mL PO QID] magnesium oxide 400 mg PO BIDPC metoprolol tartrate 100 mg See Protocol PO BID@0900,1700 silver sulfadiazine 1% 1 appl topical DAILY PRN sub-q insulin device, 20 unit (V-GO 20 device) tamsulosin 0.4 mg PO BEDTIME 90 days warfarin 5 mg PO SUTUTH@1800 warfarin 2.5 mg PO MOWEFRSA@1800 HPI Comments Details: Randy is a 73-year-old male patient of Dr. Gaytan was accompanied by his significant other at today's office visit. He has a PMH of diabetes, GERD, CAD s/p PCI with SELENE in 11/2022, atrial fibrillation, history of bilateral lower extremity DVT anticoagulated with Coumadin, chronic venous stasis dermatitis, and anasarca. He presents to the office today for a follow up of his urinary retention. Of note, patient was last seen approximately 2 months ago at which time he underwent an office cystoscopy with Dr. Eastman. Enlarged anterior lobe noted otherwise NAD. Discussion was had regarding potential procedures however patient with recent stent placement October of 2022 therefore will continue medical therapy at this time. In discussion with the patient today he reports he has been successfully independently voiding without any issues or concerns. In office urinalysis results reviewed with the patient today. PVR 18 mL. When asked he reports compliance with finasteride and Flomax as prescribed. He reports having followed up with GI, nephrology and PCP for his ongoing medical issues. Recent renal imaging results reviewed with the patient today. Bilateral kidneys with no hydronephrosis. Right kidney with punctate nonobstructing stones. There are 2 thinly septated cyst in the lower pole measuring 1.3 and 1.5 cm. No follow-up imaging is recommended. Left kidney 3 mm nonobstructing calculus in the lower pole. Discussed importance of managing diabetes and correlation of uncontrolled diabetes on the bladder. PSA 06/14 2.2. [facility] Medical History Atrial fibrillation with RVR BPH (benign prostatic hyperplasia) Chronic venous stasis dermatitis GERD (gastroesophageal reflux disease) CAD (coronary artery disease) Type 2 diabetes mellitus (HFpEF) heart failure with preserved ejection fraction Atrial fibrillation Surgical History Status post percutaneous transluminal angioplasty (DIE ENGRAVER) with stent placement Family History Father Kidney cancer, primary, with metastasis from kidney to other site Heart disease Social History Household Members: Significant Other Housing: House Alcohol intake: never Patient Tobacco Use Status: Never used Tobacco Second Hand Smoke Exposure: No Advance Directives Date on File: 02/13/23 service: No Review of Systems Const Reports as per HPI Eyes Reports no additional complaints ENT Reports no additional complaints Card Reports as per HPI Resp Reports no additional complaints GI Reports as per HPI Reports as per HPI Musc Reports as per HPI Skin/Breast Reports as per HPI Neuro Reports no additional complaints Psych Reports no additional complaints Endo Reports as per HPI Jordan/Lymph Reports as per HPI Aller/Immun Reports no additional complaints Physical Exam Const General: cooperative, comfortable, no acute distress, well developed, alert and awake Nutritional Appearance: overweight Orientation/consciousness: patient oriented x3 HEENT Head: Yes normal to inspection, Yes No palpable skull fracture present and Yes atraumatic Eyes General: appearance normal, both eyes and all related structures Neck Neck: Yes normal visual inspection Chest Chest palpation & inspection: normal inspection of the chest Resp Effort & Inspection: normal respiratory effort and able to speak in complete sentences Cardio Rate: regular rate GI Inspection: Yes Abdominal panniculus present General: Yes no CVA tenderness Back/Spine/Pelvis Back: no CVA tenderness Skin Other: Bilateral lower extremities with anasarca with blebs and leaking lymphedma. Skin appears discolored and dry. Neuro General: patient oriented x3 Psych Other: unkempt in appearance Mental Status: mental status grossly normal Speech and movement: Normal speech and movement present and Clear speech present Affect: normal affect Attitude: cooperative Thought process: Normal thought process present Thought content: Normal thought content present Insight: Fair insight present (Psych) Judgement: Fair judgement present (Psych) Office Procedures Post Void Residual Post Residual Void Post Void Residual (PVR): 18 [id number] Void Residual by ultrasound Results AMB Urinalysis, Automated UA Leukoctes 70 Sindi/uL Last Edit by [employer] on 08/15/23 10:56 UA Nitrite Negative Last Edit by [employer] on 08/15/23 10:56 UA Urobilinogen 0.2 mg/dL Last Edit by [employer] on 08/15/23 10:56 UA Protein 15 mg/dL Last Edit by [employer] on 08/15/23 10:56 UA pH 6.0 Last Edit by [employer] on 08/15/23 10:56 UA Blood 0 Koko/uL Last Edit by [employer] on 08/15/23 10:56 UA Specific Anderson 1.015 Last Edit by [employer] on 08/15/23 10:56 UA Ketone Negative Last Edit by [employer] on 08/15/23 10:56 UA Bilirubin 0 mg/dL Last Edit by [employer] on 08/15/23 10:56 UA Glucose 0 mg/dL Last Edit by [employer] on 08/15/23 10:56 Results Reviewed Results Reviewed: Laboratory Last Values Urine pH (Auto) 6.0 08/15/23 10:48 Specific Anderson (Auto) 1.015 08/15/23 10:48 Urine Protein (Auto) 15 mg/dL 08/15/23 10:48 Glucose (UA)(Auto) 0 mg/dL 08/15/23 10:48 Urine Ketones (Auto) Negative 08/15/23 10:48 Urine Blood (Auto) 0 Koko/uL 08/15/23 10:48 Urine Nitrite (Auto) Negative 08/15/23 10:48 Urine Bilirubin (Auto) 0 mg/dL 08/15/23 10:48 Urine Urobilinogen (Auto) 0.2 mg/dL 08/15/23 10:48 Leukocyte Esterase (Auto) 70 Sindi/uL 08/15/23 10:48 Date of Service: 07/30/23 EXAMINATION: US RETROPERITONEAL LIMITED (RENAL ONLY) FINDINGS: RIGHT KIDNEY: 11.9 x 4.6 x 4.9 cm (SAG x AP x TRV). The kidney is normal in size, contour, and echogenicity. Renal cortical thickness is normal. Punctate nonobstructing calculus in the mid kidney. No hydronephrosis. There are 2 thinly septated cyst in the lower pole measuring 1.3 and 1.5 cm. No follow-up imaging is recommended. LEFT KIDNEY: 12.9 x 5.6 x 5.4 cm (SAG x AP x TRV). The kidney is normal in size, contour, and echogenicity. Renal cortical thickness is normal. No focal parenchymal lesions or hydronephrosis. 3 mm nonobstructing calculus in the lower pole. IMPRESSION: Bilateral nonobstructing renal calculi. No hydronephrosis. Assessment & Plan Assessment & Plan (1) Obstructive uropathy: Code(s): N13.9 - Obstructive and reflux uropathy, unspecified Category: Medical (2) Calculus of left kidney: Code(s): N20.0 - Calculus of kidney Category: Medical (3) Urinary retention: Code(s): R33.9 - Retention of urine, unspecified Category: Medical Plan In office urinalysis results reviewed with the patient today; as noted above. PVR 18 mL. Continue Flomax and finasteride as discussed and prescribed. Patient currently denies any bothersome urinary issues or concerns. Discussed pharmacological management versus surgical intervention regarding enlarged prostate enlarged median lobe Patient reports be happy with current voiding parameters. Recent renal ultrasound results reviewed with the patient today; as noted above. Will obtain PSA in 6 months. Discussed, educated, and stressed the importance of managing diabetes for overall health and well-being. Follow-up in 6 months with lab to be completed prior and PVR at next office visit; or sooner with any issues, concerns, and or questions. Orders: Orders AMB Urinalysis Automated 08/15/23 Z13.9 - Encounter for screening, unspecified AMB Post Void Residual by ultrasound 08/15/23 R33.9 - Retention of urine, unspecified Prostate Specific Antigen 6 Months N13.9 - Obstructive and reflux uropathy, unspecified Medications: Refilled tamsulosin 0.4 mg PO BEDTIME 90 caps 3RF 90 days N40.1 - Benign prostatic hyperplasia with lower urinary tract symptoms, R35.1 - Nocturia finasteride 5 mg PO DAILY 90 tabs 3RF 90 days Patient Instructions: The patient had an opportunity to ask questions regarding the treatment plan. All questions were answered. Physical exam, labs, and imaging were discussed and reviewed in detail. As well as risks, benefits, and discussion of treatment choices. No major barriers to understanding were identified. The patient expressed understanding and agreement with the above treatment plan. The patient was made aware they should contact our office by phone for worsening of their current condition, the appearance of new symptoms, or with any questions or concerns. Compliance is encouraged with any medications and follow up testing that is ordered. It is a privilege to be allowed the opportunity to participate in? your urological care.? Again, if you have any questions or concerns If you have any questions or concerns please do not hesitate to contact me. The office is [phone]. This note is constructed using voice recognition software. While every effort has been made to ensure accuracy forming machine adjuster errors may have been included. Yours sincerely, JUWAN Pearce Coding Level of Care Code Est Pt Level 3 (16301) Diagnoses Obstructive uropathy N13.9 Calculus of left kidney N20.0 Urinary retention R33.9 CPT Codes Post Residual Void - PVR CPT Code: 99187-Jpoq Void Residual by ultrasound ([id number])
== END 2023-08-15 11:28 | disposition home or self-care (01) ==
PROVIDERS: PCP Internal Medicine; Visit Provider Nurse Practitioner Family
DX: Z13.9 Encounter for screening, unspecified (principal)
CPT/HCPCS: 99213

== ENCOUNTER → 2023-08-15 10:37 | Outpatient (BNVA) | payer MEDICARE, SELFPAY | PROVIDERS: PCP Internal Medicine; Visit Provider Nurse Practitioner Family | DX: N13.9 Obstructive and reflux uropathy, unspecified (principal); R33.9 Retention of urine, unspecified; N20.0 Calculus of kidney; Z79.899 Other long term (current) drug therapy | CPT/HCPCS: 51798; 81003; 99212 ==

== ENCOUNTER 2023-11-03 07:54 | Outpatient (AMB) | payer MEDICARE, SELFPAY ==
--- NOTE | 2023-11-03 08:01 | MHC.OFFVIS ---
Vital Signs 11/03/23 08:13 Height 6 ft 4 in Weight 262 lb 5.601 oz BMI 31.9 BP 105/58 L Blood Pressure Location Lt brachial Position Sitting Pulse 79 Intake Visit Reasons: 10 month follow up Intake Note: Randy presents in the office as a 10 month follow up. CC: He states that he is not having any GI concerns today. [employer] Required: No Allergies peanut [PEANUTS] Allergy (Unknown, Verified 11/03/23 08:13) UNK wool [WOOL] Allergy (Unknown, Verified 11/03/23 08:13) UNK peanuts Allergy (Unknown, Uncoded 11/03/23 08:13) hives HPI HPI 10 month follow up: Details: LAST VISIT: Screen for colon cancer Tubular adenoma Plan History of tubular adenoma in 2019. Recommended screening is 3-5 years. Patient had drug-eluting stent placed. Patient is on Plavix. No interruption Medications New methylcellulose (laxative) (Citrucel) take it with full glass of water 500 mg PO DAILY 90 tabs 2RF K59.00 TODAY'S VISIT: patient is here today for follow-up and to discuss going for colonoscopy. Patient is due to go for colonoscopy, last year drug-eluting stent placed and patient was unable to do any procedures to stop coagulation. Patient is also on warfarin for DVT and usually has to take Lovenox to bridge him before going for any procedures. patient was admitted to the hospital twice since the last time I have seen him. He was admitted in January of last year for Congestive heart failure and rapid AFib. Patient was placed on diltiazem. In March he was seen in the ER for inability to urinate and admitted with acute kidney injury. Patient has been following up with his corn detasseler since then and is going for cardiac testing sometimes in November. Patient reports that his stools are move she. Last admission he was on heavy dose antibiotics for UTI and since then his bowels have not been normal. His bowels are very soft, mushy. Sometimes stool is watery. Denies foul smell. Denies any fever or chills. [facility] Medical History Atrial fibrillation with RVR BPH (benign prostatic hyperplasia) Chronic venous stasis dermatitis GERD (gastroesophageal reflux disease) CAD (coronary artery disease) Type 2 diabetes mellitus (HFpEF) heart failure with preserved ejection fraction Atrial fibrillation Surgical History Status post percutaneous transluminal angioplasty (OPERATING ROOM SPECIALIST) with stent placement Family History Father Kidney cancer, primary, with metastasis from kidney to other site Heart disease Social History Household Members: Significant Other Housing: House Alcohol intake: never Patient Tobacco Use Status: Never used Tobacco Second Hand Smoke Exposure: No Advance Directives Date on File: 02/13/23 service: No Review of Systems Const Denies weight gain and Denies weight loss ENT Reports no additional complaints, Denies dysphagia and Denies odynophagia Card Reports no additional complaints Resp Reports no additional complaints GI Denies abdominal pain, Denies belching, Denies melena, Reports bloating, Denies change in bowel habits, Denies dysphagia, Denies excessive flatus, Denies dyspepsia, Denies heartburn, Denies diarrhea, Reports loose stools (occasional), Denies nausea, Denies odynophagia and Denies vomiting Reports no additional complaints Musc Reports no additional complaints Neuro Reports no additional complaints Psych Reports no additional complaints Endo Reports no additional complaints Physical Exam Vital Signs: Last Vital Signs Pulse 79 11/03/23 08:13 BP 105/58 L 11/03/23 08:13 BMI result Body Mass Index 31.9 Const General: healthy appearing and no acute distress Nutritional Appearance: obese Orientation/consciousness: patient oriented x3 Resp Effort & Inspection: normal respiratory effort, able to speak in complete sentences, no tracheal deviation and symmetric chest movement Auscultation: clear to auscultation bilaterally Cardio Rate: regular rate GI Inspection: Yes normal to inspection, No distended and Yes obesity Palpation (GI): Soft to palpation, not firm, nontender and No hepatosplenomegaly present Auscultation: normal bowel sounds General: Yes no CVA tenderness Back/Spine/Pelvis Back: no CVA tenderness Skin General skin exam: elasticity normal, turgor normal and dry skin Neuro General: patient oriented x3 Psych Appearance: grossly normal Mental Status: mental status grossly normal Assessment & Plan Assessment & Plan (1) Screen for colon cancer: Code(s): Z12.11 - Encounter for screening for malignant neoplasm of colon (2) Tubular adenoma: Code(s): D36.9 - Benign neoplasm, unspecified site Plan patient will book procedure today with GI schedulers. Please call his corn detasseler's office for clearance and directions on went to hold Plavix and warfarin. Patient might need Lovenox bridge when holding warfarin. What to expect before during and after procedure discussed with patient patient continues to have postprandial loose stools. Patient was on antibiotics for UTI in the past. Will rule out C diff, check GI panel, CRP, fecal calprotectin. Patient denies any issues with anesthesia in the past. Split MiraLax and Dulcolax prep ordered. Patient is on Lantus half of the dose the night before the procedure as well as 2 nights before the procedure to avoid hypoglycemia. I will see him after the procedure, sooner on as needed basis. He is agreeable to this plan and verbalizes understanding of instructions. He was given the opportunity to ask questions and all questions answered. Thank you for allowing me to participate in his care Orders: Orders GI Panel Today R19.7 - Diarrhea, unspecified C Reactive Protein Today K58.9 - Irritable bowel syndrome without diarrhea Calprotectin, Fecal Today R15.9 - Full incontinence of feces CDiff Gene PCR Today R19.7 - Diarrhea, unspecified Medications: New bisacodyl (Dulcolax (bisacodyl)) take 4 tabs at noon the day before your colonoscopy 20 mg (4 x 5 mg) PO ONCE 4 tabs 0RF 1 day Z12.11 - Encounter for screening for malignant neoplasm of colon polyethylene glycol 3350 (Miralax) As directed by gastroenterology department at [facility] 238 grams PO ONCE 238 grams 0RF Z12.11 - Encounter for screening for malignant neoplasm of colon Coding Level of Care Code Est Pt Level 3 (85441) Diagnoses Screen for colon cancer Z12.11 Tubular adenoma D36.9 Time Spent (min) 30 Comment 20 minutes spent with patient and additional 10 minutes spent reviewing his records
[2023-11-03 08:13] VITALS: BP 105/58; PULSE 79; BMI 31.9
== END 2023-11-03 08:43 | disposition home or self-care (01) ==
PROVIDERS: PCP Internal Medicine; Visit Provider Nurse Practitioner Family
DX: Z01.818 Encounter for other preprocedural examination (principal); Z12.11 Encounter for screening for malignant neoplasm of colon; Z86.010 Personal history of colon polyps
CPT/HCPCS: 99024

== ENCOUNTER 2023-11-03 07:54 | Outpatient (REF) | payer MEDICARE, SELFPAY ==
[2023-11-03 10:07] LABS: C Reactive Protein 0.77 mg/dL (< or = 0.50)
== END 2023-11-03 07:55 | disposition home or self-care (01) ==
LOC: HO.LAB 07:54
PROVIDERS: PCP Internal Medicine; Visit Provider Nurse Practitioner Family
DX: Z01.818 Encounter for other preprocedural examination (principal); K58.9 Irritable bowel syndrome, unspecified; D36.9 Benign neoplasm, unspecified site
CPT/HCPCS: 36415; 86140; 99212

== ENCOUNTER 2023-11-04 16:51 | Outpatient (REF) | payer MEDICARE, SELFPAY ==
[2023-11-04 17:47] LABS: CDiff Gene PCR NEGATIVE (Negative)
[2023-11-05 11:37] LABS: Adenovirus F 40/41 Not Detected (Not Detect.); Astrovirus Not Detected (Not Detect.); Campylobacter Not Detected (Not Detect.); Cryptosporidium Not Detected (Not Detect.); Cyclospora cayetanensis Not Detected (Not Detect.); E. coli EAEC Not Detected (Not Detect.); E. coli EPEC Not Detected (Not Detect.); E. coli ETEC Not Detected (Not Detect.); E. coli STEC Not Detected (Not Detect.); Entamoeba histolytica Not Detected (Not Detect.); Giardia lamblia Not Detected (Not Detect.); Norovirus GI/GII Not Detected (Not Detect.); Plesiomonas shigelloides Not Detected (Not Detect.); Rotavirus A Not Detected (Not Detect.); Salmonella Not Detected (Not Detect.); Sapovirus Not Detected (Not Detect.); Shigella sp./EIEC Not Detected (Not Detect.); Vibrio Not Detected (Not Detect.); Vibrio Cholerae Not Detected (Not Detect.); Yersinia enterocolitica Not Detected (Not Detect.)
[2023-11-11 23:13] LABS: Calprotectin, Fecal 7 mcg/g
== END 2023-11-04 16:52 | disposition home or self-care (01) ==
LOC: HO.LNP 16:51
PROVIDERS: Visit Provider Nurse Practitioner Family
DX: R19.7 Diarrhea, unspecified (principal); R15.9 Full incontinence of feces
CPT/HCPCS: 83993; 87493; 87507

== ENCOUNTER 2023-11-24 12:36 | Outpatient (REF) | payer MEDICARE, SELFPAY ==
--- NOTE | ~2023-11-24 | US_ITS ---
EXAMINATION: US LOWER EXTREMITY VENOUS (REFLUX EXAM), BILATERAL CLINICAL INDICATION: Venous insufficiency COMPARISON: None. TECHNIQUE: Color flow triplex imaging and compression Doppler was performed to evaluate both the deep and the superficial systems bilaterally. To evaluate the superficial system, the examination was performed in the upright position. Color-flow Doppler ultrasound and compression ultrasound were utilized. In addition, maneuvers were utilized to demonstrate reflux. FINDINGS: 1. DEEP VENOUS ULTRASOUND OF THE RIGHT LOWER EXTREMITY: Common Femoral Vein: Compressible, normal respiratory variation and augmented flow. Femoral Vein: Compressible, normal color flow and augmentation. Popliteal Vein: Compressible, normal augmentation. Deep Reflux: There is no evidence of reflux in the deep system in either the common femoral vein, superficial femoral or the popliteal vein. There is no evidence of a Oakley's cyst. 2. SUPERFICIAL ULTRASOUND WITH DOPPLER OF RIGHT LOWER EXTREMITY: GREAT SAPHENOUS VEIN: Saphenofemoral Junction: 0.7 cm; Reflux: 2500 ms Proximal Thigh: 0.8 cm; Reflux: 0 ms Mid Thigh: 0.8 cm; Reflux: 1616 ms Above Knee: 03.7 cm; Reflux: 740 ms At Knee: 0.7 cm; Reflux: 0 ms Below Knee: 0.6 cm; Reflux: 0 ms Mid Calf: 0.3 cm; Reflux: 1008 ms Ankle: 0.4 cm; Reflux: 1120 ms DUPLICATED MEDIAL GREAT SAPHENOUS VEIN: Diameter: None imaged Reflux: NA DUPLICATED LATERAL GREAT SAPHENOUS VEIN: Diameter: 0.2cm Reflux: NA SMALL SAPHENOUS VEIN: Saphenopopliteal Junction: 0.6 cm; Reflux: 0 ms Proximal: 0.5 cm; Reflux: 0 ms Distal: 0.7 cm; Reflux: 0 ms VEIN OF GIACOMINI: Size: NA Reflux: NA PERFORATORS: Location: Right GSV Size: 0.2-0.3 cm Reflux: NA VARICOSITIES: Location: Numerous throughout the right lower extremity Size: 0.3-0.6 cm Reflux: 0-1236ms 3. DEEP VENOUS ULTRASOUND OF THE LEFT LOWER EXTREMITY: Common Femoral Vein: Compressible, normal respiratory variation and augmented flow. Femoral Vein: Compressible, normal color flow and augmentation. Popliteal Vein: Compressible, normal augmentation. Deep Reflux: There is no evidence of reflux in the deep system in either the common femoral vein, superficial femoral vein. There is nonocclusive chronic thrombus within the left gastrocnemius vein and popliteal vein. There is no evidence of a Oakley's cyst. 4. SUPERFICIAL ULTRASOUND WITH DOPPLER OF LEFT LOWER EXTREMITY: GREAT SAPHENOUS VEIN: Saphenofemoral Junction: 0.5 cm; Reflux: 0 ms Proximal Thigh: 0.5 cm; Reflux: 0 ms Mid Thigh: 0.6 cm; Reflux: 0 ms Above Knee: 0.5 cm; Reflux: 0 ms At Knee: 0.5 cm; Reflux: 0 ms Below Knee: 0.6 cm; Reflux: 0 ms Mid Calf: 0.5 cm; Reflux: 592 ms Ankle: 0.5 cm; Reflux: 1516 ms DUPLICATED MEDIAL GREAT SAPHENOUS VEIN: Diameter: None imaged Reflux: NA DUPLICATED LATERAL GREAT SAPHENOUS VEIN: Diameter: None imaged Reflux: NA SMALL SAPHENOUS VEIN: Saphenopopliteal Junction: 0.5 cm; Reflux: 0 ms Proximal: 0.5 cm; Reflux: 0 ms Distal: 0.6 cm; Reflux: 0 ms VEIN OF GIACOMINI: Size: NA Reflux: NA PERFORATORS: Location: GSV thigh and calf Size: 0.2-0.6cm Reflux: 0-1632ms VARICOSITIES: Location: Multiple calf Size: 0.3-0.6cm Reflux: 0-1684 US/US venous duplex LE BI IMPRESSION: 1. Right: Severe reflux in the right great saphenous vein. Numerous refluxing varicosities throughout the right lower extremity. 2. Left: Severe reflux in the left great saphenous vein in the mid calf and ankle. Numerous refluxing varicosities throughout the left lower extremity. 3. Chronic nonocclusive thrombus in the left gastrocnemius vein and popliteal vein.
== END 2023-11-24 12:37 | disposition home or self-care (01) ==
LOC: HO.US 12:36
PROVIDERS: PCP Internal Medicine; Visit Provider Physician Assistant
DX: I87.009 Postthrombotic syndrome without complications of unspecified extremity (principal); I87.2 Venous insufficiency (chronic) (peripheral)
CPT/HCPCS: 93970

== ENCOUNTER 2023-11-25 13:05 | Outpatient (REF) | payer MEDICARE, SELFPAY ==
--- NOTE | ~2023-11-25 | US_ITS ---
EXAMINATION: NONINVASIVE ASSESSMENT OF THE ARTERIES OF BOTH LOWER EXTREMITIES INCLUDING PVR EXAM AND BILATERAL LOWER EXTREMITY DUPLEX CLINICAL INFORMATION: Absent pedal pulses COMPARISON: None TECHNIQUE: Ankle pulse volume recordings, ankle pressure measurements and ankle brachial indices were obtained of the lower extremity arterial system bilaterally in addition to duplex Doppler techniques with wave form analysis and measurement of velocities in the common femoral, profunda femoral, superficial femoral, popliteal, tibial and peroneal arteries. The study was performed only at rest. FINDINGS: RIGHT LEG 1. Right Ankle-Brachial Index: 1.81 (higher of the DP/PT) >0.97-1.25 = normal - no significant arterial disease 0.75-0.96 = mild peripheral arterial disease 0.5-0.74 = moderate peripheral arterial disease <0.50 = severe peripheral arterial disease <0.30 = critical arterial disease 2. Segmental Pressures (mmHg): Brachial: 113 Ankle: PT 205, DP 203 3. PVR Waveforms: Ankle: Multiphasic 4. Direct Duplex: Common femoral artery: 105 cm/s, triphasic Profunda femoris artery: 36 cm/s, biphasic Superficial femoral artery (proximal): 79 cm/s, triphasic Superficial femoral artery (mid): 83 cm/s, triphasic Superficial femoral artery (distal): 63 cm/s, triphasic. Ectatic vessel measuring up to 1.4 cm in diameter. Proximal Popliteal artery: 65 cm/s, triphasic Mid posterior tibial artery: 76 cm/s, triphasic LEFT LE. Left Ankle-Brachial Index: 1.8 (higher of the DP/PT) >0.97-1.25 = normal - no significant arterial disease 0.75-0.96 = mild peripheral arterial disease 0.5-0.74 = moderate peripheral arterial disease <0.50 = severe peripheral arterial disease <0.30 = critical arterial disease 2. Segmental Pressures: Brachial: 97 Ankle: PT 202, DP 203 3. PVR Waveforms: Ankle: Multiphasic 4. Direct Duplex: Common femoral artery: 76 cm/s, triphasic Profunda femoris artery: 54 cm/s, biphasic Superficial femoral artery (proximal): 78 cm/s, triphasic Superficial femoral artery (mid): 70 cm/s, triphasic Superficial femoral artery (distal): 59 cm/s, triphasic Proximal Popliteal artery: 54 cm/s, triphasic Mid posterior tibial artery: 74 cm/s, triphasic US/US arterial duplex BI w/ NYDIA IMPRESSION: 1. Elevated bilateral ABIs, and calcified vessels. 2. Ectatic distal right SFA measuring 1.4 cm in diameter.
== END 2023-11-25 13:06 | disposition home or self-care (01) ==
LOC: HO.US 13:05
PROVIDERS: PCP Internal Medicine; Visit Provider Physician Assistant
DX: R09.89 Other specified symptoms and signs involving the circulatory and respiratory systems (principal)
CPT/HCPCS: 93922; 93925

== ENCOUNTER 2024-01-22 11:22 | Outpatient (REF) | payer MEDICARE, SELFPAY ==
[2024-01-22 12:54] LABS: Prostate Specific Antigen 1.71 ng/mL (<0.05-4.0)
== END 2024-01-22 11:23 | disposition home or self-care (01) ==
LOC: HO.LAB 11:22
PROVIDERS: PCP Internal Medicine; Visit Provider Nurse Practitioner Family
DX: N13.9 Obstructive and reflux uropathy, unspecified (principal); Z12.5 Encounter for screening for malignant neoplasm of prostate
CPT/HCPCS: 36415; 84153

== ENCOUNTER 2024-01-26 09:29 | Outpatient (REF) | payer MEDICARE, SELFPAY ==
[2024-01-26 16:31] LABS: Urine Cytology See Pathology rpt
== END 2024-01-26 09:30 | disposition home or self-care (01) ==
LOC: HO.LNP 09:29
PROVIDERS: PCP Internal Medicine; Visit Provider Nurse Practitioner Family
DX: Z13.9 Encounter for screening, unspecified (principal); N13.9 Obstructive and reflux uropathy, unspecified; N20.0 Calculus of kidney; R33.9 Retention of urine, unspecified; Z79.01 Long term (current) use of anticoagulants; Z79.899 Other long term (current) drug therapy
CPT/HCPCS: 51798; 81003; 88112; 99212

== ENCOUNTER 2024-01-26 09:29 | Outpatient (AMB) | payer MEDICARE, SELFPAY ==
--- NOTE | 2024-01-26 09:40 | A.OFFVIS_ITS ---
Intake Visit Reasons: 6M Follow up/PSA Intake Note: Patient presents for follow up visit for urinary retention and ultrasound results Urology Medications: finasteride, tamsulosin Blood Thinner: clopidogrel, warfarin PVR: Cow Buyer Required: No Accompanied by: Self / Same As Patient Allergies peanut [PEANUTS] Allergy (Unknown, Verified 01/26/24 10:13) UNK wool [WOOL] Allergy (Unknown, Verified 01/26/24 10:13) UNK peanuts Allergy (Unknown, Uncoded 01/26/24 10:13) hives Medication List - Last Reconciled 01/26/24 by JUWAN Pearce ammonium lactate 12% 1 appl topical DAILY PRN atorvastatin 40 mg PO BEDTIME bisacodyl (Dulcolax (bisacodyl)) 20 mg (4 x 5 mg) PO ONCE 1 day clopidogrel 75 mg PO DAILY digoxin 0.25 mg PO DAILY diltiazem HCl CD (Cardizem CD) 120 mg PO DAILY dulaglutide (Trulicity) 1.5 mg subcut TH@0900 finasteride 5 mg PO DAILY 90 days flash glucose scanning reader (FreeStyle Pat 2 [place]) As directed flash glucose sensor (FreeStyle Pat 2 Sensor kit) As directed folic acid 1 mg PO DAILY@1200 furosemide 20 mg PO DAILY insulin lispro (Humalog U-100 Insulin) insulin pump metformin ER 500 mg PO BID metoprolol tartrate 100 mg See Protocol PO BID@0900,1700 polyethylene glycol 3350 (Miralax) 238 grams PO ONCE silver sulfadiazine 1% 1 appl topical DAILY PRN sub-q insulin device, 20 unit (V-GO 20 device) tamsulosin 0.4 mg PO BEDTIME 90 days warfarin 5 mg PO SUTUTH@1800 warfarin 2.5 mg PO MOWEFRSA@1800 HPI Comments Details: Randy is a 73-year-old male patient of Dr. Gaytan was accompanied by his significant other at today's office visit. He has a PMH of diabetes, GERD, CAD s/p PCI with SELENE in 11/2022, atrial fibrillation, history of bilateral lower extremity DVT anticoagulated with Coumadin, chronic venous stasis dermatitis, and anasarca. He presents to the office today for a follow up of his urinary retention. In discussion with the patient today he reports to be doing and feeling well. He reports since his last office visit here he has had no bothersome urinary issues or concerns. In office urinalysis results reviewed with the patient today. PVR 13 mL. He reports compliance with finasteride and Flomax as prescribed. Recent PSA results reviewed with the patient today as noted and trended below. PSA: 06/14 2.2, 02/11 1.7. Previous workup has also included a retroperitoneal ultrasound noting bilateral kidneys with no hydronephrosis. Right kidney with punctate nonobstructing stones. There are 2 thinly septated cyst in the lower pole measuring 1.3 and 1.5 cm. No follow-up imaging is recommended. Left kidney 3 mm nonobstructing calculus in the lower pole. In office cystoscopy 06/14 noted enlarged anterior lobe otherwise NAD. Discussed importance of managing diabetes and correlation of uncontrolled diabetes on the bladder. He otherwise offers no other issues or concerns at this time. [facility] Medical History Atrial fibrillation with RVR BPH (benign prostatic hyperplasia) Chronic venous stasis dermatitis GERD (gastroesophageal reflux disease) CAD (coronary artery disease) Type 2 diabetes mellitus (HFpEF) heart failure with preserved ejection fraction Atrial fibrillation Surgical History Status post percutaneous transluminal angioplasty ([employer]) with stent placement Family History Father Kidney cancer, primary, with metastasis from kidney to other site Heart disease Social History Household Members: Significant Other Housing: House Alcohol intake: never Patient Tobacco Use Status: Never used Tobacco Second Hand Smoke Exposure: No Advance Directives Date on File: 02/13/23 service: No Review of Systems Const Reports as per HPI Eyes Reports no additional complaints ENT Reports no additional complaints Card Reports as per HPI Resp Reports no additional complaints GI Reports as per HPI Reports as per HPI Musc Reports as per [facility] Skin/Breast Reports as per [facility] Neuro Reports no additional complaints Psych Reports no additional complaints Endo Reports as per [facility] Jordan/Lymph Reports as per [facility] Aller/Immun Reports no additional complaints Physical Exam Const General: cooperative, comfortable, no acute distress, well developed, alert and awake Nutritional Appearance: overweight Orientation/consciousness: patient oriented x3 HEENT Head: Yes normal to inspection, Yes No palpable skull fracture present and Yes atraumatic Eyes General: appearance normal, both eyes and all related structures Neck Neck: Yes normal visual inspection Chest Chest palpation & inspection: normal inspection of the chest Resp Effort & Inspection: normal respiratory effort and able to speak in complete sentences Cardio Rate: regular rate GI Inspection: Yes Abdominal panniculus present General: Yes no CVA tenderness Back/Spine/Pelvis Back: no CVA tenderness Skin Other: Bilateral lower extremities with anasarca with blebs and leaking lymphedma. Skin appears discolored and dry. Neuro General: patient oriented x3 Psych Other: unkempt in appearance Mental Status: mental status grossly normal Speech and movement: Normal speech and movement present and Clear speech present Affect: normal affect Attitude: cooperative Thought process: Normal thought process present Thought content: Normal thought content present Insight: Fair insight present (Psych) Judgement: Fair judgement present (Psych) Office Procedures Post Void Residual Post Residual Void Post Void Residual (PVR): 13 [id number] Void Residual by ultrasound Results AMB Urinalysis, Automated UA Leukoctes 15 Sindi/uL Last Edit by Susana Long on 01/26/24 09:57 UA Nitrite Last Edit by Susana Long on 01/26/24 09:57 UA Urobilinogen 0.2 mg/dL Last Edit by Trutaptee Long on 01/26/24 09:57 UA Protein 15 mg/dL Last Edit by Trutaptee Long on 01/26/24 09:57 UA pH 6.0 Last Edit by Susana Long on 01/26/24 09:57 UA Blood 10 Koko/uL Last Edit by Susana Long on 01/26/24 09:57 UA Specific [place] 1.015 Last Edit by [employer] Long on 01/26/24 09:57 UA Ketone Last Edit by Trutaptee Long on 01/26/24 09:57 UA Bilirubin 0 mg/dL Last Edit by Susana Long on 01/26/24 09:57 UA Glucose 0 mg/dL Last Edit by Susana Long on 01/26/24 09:57 Results Reviewed Results Reviewed: Laboratory Last Values Urine pH (Auto) 6.0 01/26/24 09:47 Specific [place] (Auto) 1.015 01/26/24 09:47 Urine Protein (Auto) 15 mg/dL 01/26/24 09:47 Glucose (UA)(Auto) 0 mg/dL 01/26/24 09:47 Urine Blood (Auto) 10 Koko/uL 01/26/24 09:47 Urine Bilirubin (Auto) 0 mg/dL 01/26/24 09:47 Urine Urobilinogen (Auto) 0.2 mg/dL 01/26/24 09:47 Leukocyte Esterase (Auto) 15 Sindi/uL 01/26/24 09:47 Assessment & Plan Assessment & Plan (1) Obstructive uropathy: Code(s): N13.9 - Obstructive and reflux uropathy, unspecified Category: Medical (2) Calculus of left kidney: Code(s): N20.0 - Calculus of kidney Category: Medical (3) Acute on chronic urinary retention: Code(s): R33.9 - Retention of urine, unspecified Category: Medical (4) Urinary retention: Code(s): R33.9 - Retention of urine, unspecified Category: Medical Plan In office urinalysis results reviewed with the patient today; as noted above. PVR 13 mL. Continue Flomax and finasteride as discussed and prescribed. Patient currently denies any bothersome urinary issues or concerns. Discussed pharmacological management versus surgical intervention regarding enlarged prostate enlarged median lobe. Patient reports be happy with current voiding parameters. Recent PSA results reviewed with the patient today; as noted above. Discussed, educated, and stressed the importance of managing diabetes for overall health and well-being. Follow-up in 6 months with PVR; or sooner with any issues, concerns, and or questions. Orders: Orders AMB Urinalysis Automated Today Z13.9 - Encounter for screening, unspecified AMB Post Void Residual by ultrasound Today R33.9 - Retention of urine, unspecified Patient Instructions: The patient had an opportunity to ask questions regarding the treatment plan. All questions were answered. Physical exam, labs, and imaging were discussed and reviewed in detail. As well as risks, benefits, and discussion of treatment choices. No major barriers to understanding were identified. The patient expressed understanding and agreement with the above treatment plan. The patient was made aware they should contact our office by phone for worsening of their current condition, the appearance of new symptoms, or with any q uestions or concerns. Compliance is encouraged with any medications and follow up testing that is ordered. It is a privilege to be allowed the opportunity to participate in? your urological care.? Again, if you have any questions or concerns If you have any questions or concerns please do not hesitate to contact me. The office is [phone]. This note is constructed using voice recognition software. While every effort has been made to ensure accuracy chair and couch maker errors may have been included. Yours sincerely, JUWAN Pearce Coding Level of Care Code Est Pt Level 3 (48516) Complex EM visit Add On G2211 Diagnoses Obstructive uropathy N13.9 Calculus of left kidney N20.0 Acute on chronic urinary retention R33.9 Urinary retention R33.9 CPT Codes Post Residual Void - PVR CPT Code: 61799-[id number] Void Residual by ultrasound ([id number])
== END 2024-01-26 10:08 | disposition home or self-care (01) ==
PROVIDERS: PCP Internal Medicine; Visit Provider Nurse Practitioner Family
DX: N13.9 Obstructive and reflux uropathy, unspecified (principal); N20.0 Calculus of kidney; R33.9 Retention of urine, unspecified; Z13.9 Encounter for screening, unspecified
CPT/HCPCS: 99213; G2211

== ENCOUNTER 2024-03-09 09:20 | Day surgery (SDC) | payer MEDICARE, SELFPAY ==
--- NOTE | 2024-03-08 12:20 | HO.ANESPROP2 ---
Documented by User: Marcela Mooney NP 03/08/24 12:26 HPI - Anesthesia Eval Consult details Narrative: 73yo M for Colonoscopy Follows [facility]. Last office visit 09/2023 Afib on coumadin (bridging d/t hx DVT) CAD s/p SELENE 2022 HFpEF Anesthesia Pre-Procedure Meds Is the patient on any of the following meds?: GLP1/DPP4 PMFSH Active Problems Active Problems: All Active Problems Obstructive uropathy (Acute) Calculus of left kidney (Acute) Acute on chronic urinary retention (Acute) Urinary retention (Acute) Acute CHF (Acute) Edema (Acute) Hypomagnesemia (Acute) Anasarca (Acute) Past Medical History Medical History Atrial fibrillation with RVR BPH (benign prostatic hyperplasia) Chronic venous stasis dermatitis GERD (gastroesophageal reflux disease) CAD (coronary artery disease) Type 2 diabetes mellitus (HFpEF) heart failure with preserved ejection fraction Atrial fibrillation Family History Family History Father Kidney cancer, primary, with metastasis from kidney to other site Heart disease Surgical History Surgical History Hx of colonoscopy Status post percutaneous transluminal angioplasty ([employer]PER[employer]OR) with stent placement Social History Social History Household Members: Significant Other Housing: House Are you a primary personal care aid to a significant other at home: No Do you presently have visiting nurse or other home services: No Alcohol intake: never Patient Tobacco Use Status: Never used Tobacco Second Hand Smoke Exposure: No Have you been hit, kicked, punched, or otherwise hurt by someone within the past year? If so, by whom?: No Are you DNR?: No Advance Directives: No Advance Directives Information Provided: Yes Advance Directives Date on File: 02/13/23 Recently lost weight without trying: No Nutrition Risks: No Nutritional Risk service: No Meds Allergies Allergy/AdvReac Type Severity Reaction Status Date / Time peanut [PEANUTS] Allergy Unknown UNK Verified 03/09/24 10:47 wool [WOOL] Allergy Unknown UNK Verified 03/09/24 10:47 peanuts Allergy Unknown hives Uncoded 03/09/24 10:47 Home Medications ?Medication ?Instructions ?Recorded ?Confirmed ?Last Taken ?Type atorvastatin 40 mg tablet 40 mg PO BEDTIME 09/03/22 03/09/24 03/23/23 History dulaglutide 1.5 mg/0.5 mL 1.5 mg subcut TH@0900 09/04/22 03/09/24 02/26/24 History subcutaneous pen injector (Trulicity) folic acid 1 mg tablet 1 mg PO DAILY@1200 09/04/22 03/09/24 03/23/23 History insulin lispro 100 unit/mL See Rx Instructions .Route .COMPLEX 09/04/22 03/09/24 03/24/23 History subcutaneous solution (Humalog U-100 Insulin) warfarin 5 mg tablet 2.5 mg PO MOWEFRSA@1800 09/04/22 03/09/24 03/22/23 History clopidogrel 75 mg tablet 75 mg PO DAILY 01/06/23 03/09/24 03/04/24 History flash glucose scanning reader #1 ea 01/06/23 03/09/24 Unknown History (FreeStyle Pat 2 [place]) flash glucose sensor (FreeStyle #1 ea 01/06/23 03/09/24 Unknown History Pat 2 Sensor kit) ammonium lactate 12 % topical cream 1 appl topical DAILY PRN Wound Care 02/12/23 03/09/24 Unknown History silver sulfadiazine 1 % topical 1 appl topical DAILY PRN Wound Care 02/12/23 03/09/24 Unknown History cream sub-q insulin device, 20 unit 02/12/23 03/09/24 03/24/23 History (V-GO 20 device) warfarin 5 mg tablet 5 mg PO SUTUTH@1800 02/12/23 03/09/24 03/03/24 History metformin 500 mg tablet,extended 500 mg PO BID 11/03/23 03/09/24 Unknown History release 24 hr Exam Narrative Narrative: ECHO 2022 Conclusions: - 1. Normal LVEF of 55-60% with moderate LVH 2. Moderate left atrial enlargement next 3. Limited visualization of cardiac valves with trivial aortic regurgitation 4. Upper limits of normal ascending aortic size Assessment and Plan Assessment Anesthesia Assessment: Chart Reviewed Documented by User: Nadia Andrews MD 03/09/24 12:05 [facility] Past Medical History Medical History Atrial fibrillation with RVR BPH (benign prostatic hyperplasia) Chronic venous stasis dermatitis GERD (gastroesophageal reflux disease) CAD (coronary artery disease) Type 2 diabetes mellitus (HFpEF) heart failure with preserved ejection fraction Atrial fibrillation Family History Family History Father Kidney cancer, primary, with metastasis from kidney to other site Heart disease Surgical History Surgical History Hx of colonoscopy 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 If so, by whom?: No Are you DNR?: No Advance Directives: No Advance Directives Information Provided: Yes Advance Directives Date on File: 02/13/23 Recently lost weight without trying: No Nutrition Risks: No Nutritional Risk service: No Meds Allergies Allergy/AdvReac Type Severity Reaction Status Date / Time peanut [PEANUTS] Allergy Unknown UNK Verified 03/09/24 10:47 wool [WOOL] Allergy Unknown UNK Verified 03/09/24 10:47 peanuts Allergy Unknown hives Uncoded 03/09/24 10:47 Home Medications ?Medication ?Instructions ?Recorded ?Confirmed ?Last Taken ?Type atorvastatin 40 mg tablet 40 mg PO BEDTIME 09/03/22 03/09/24 03/23/23 History dulaglutide 1.5 mg/0.5 mL 1.5 mg subcut TH@0900 09/04/22 03/09/24 02/26/24 History subcutaneous pen injector (Trulicity) folic acid 1 mg tablet 1 mg PO DAILY@1200 09/04/22 03/09/24 03/23/23 History insulin lispro 100 unit/mL See Rx Instructions .Route .COMPLEX 09/04/22 03/09/24 03/24/23 History subcutaneous solution (Humalog U-100 Insulin) warfarin 5 mg tablet 2.5 mg PO MOWEFRSA@1800 09/04/22 03/09/24 03/22/23 History clopidogrel 75 mg tablet 75 mg PO DAILY 01/06/23 03/09/24 03/04/24 History flash glucose scanning reader #1 ea 01/06/23 03/09/24 Unknown History (FreeStyle Pat 2 [place]) flash glucose sensor (FreeStyle #1 ea 01/06/23 03/09/24 Unknown History Pat 2 Sensor kit) ammonium lactate 12 % topical cream 1 appl topical DAILY PRN Wound Care 02/12/23 03/09/24 Unknown History silver sulfadiazine 1 % topical 1 appl topical DAILY PRN Wound Care 02/12/23 03/09/24 Unknown History cream sub-q insulin device, 20 unit 02/12/23 03/09/24 03/24/23 History (V-GO 20 device) warfarin 5 mg tablet 5 mg PO SUTUTH@1800 02/12/23 03/09/24 03/03/24 History metformin 500 mg tablet,extended 500 mg PO BID 11/03/23 03/09/24 Unknown History release 24 hr Exam Airway Mallampati Class: III TM Dist: >3cm Neck ROM: Limited Loose/Missing/Broken Teeth: No Heart: irregularly irregular rhythm Lungs: CTA Assessment and Plan Assessment Anesthesia Assessment: Anesthesia Plan Discussed Final Anesthetic Review History of Problems with Anesthesia: No NPO: Yes ASA Class: III Final Preanesthetic Review: Meds/Allgs Chart Reviewed, Consent Obtained/Reviewed and Anes Risks/Benef Reviewed Patient Risk: Intermediate Procedure Risk: Low Anesthetic Plan Anesthetic Plan: MAC: Disposition: Standard PACU
[2024-03-09] MEDS: Lactated Ringers 1,000 ML 50 ML IVCONT (10:19)
--- NOTE | 2024-03-09 10:23 | MHC.SHP ---
Pre-Procedural Eval Section A - 24 Hr Update-Section A only Date of Service: 03/09/24 Section B - Complete if H&P > 30 days Chief Complaint: Encounter for screening for malignant neoplasm of Relevant Family History (Specify if Yes): No Relevant Social History: None Present Medications: see Short Stay Collaborative assessment Medical History: Significant History (Atrial fibrillation with RVR BPH (benign prostatic hyperplasia) Chronic venous stasis dermatitis GERD (gastroesophageal reflux disease) CAD (coronary artery disease) Type 2 diabetes mellitus (HFpEF) heart failure with preserved ejection fraction Atrial fibrillation) History of Previous Operations: Relevant previous surgery/procedure and date(s) ( Status post percutaneous transluminal angioplasty ([employer]IVE) with stent placement) Allergies: Allergies Allergy/AdvReac Type Severity Reaction Status Date / Time peanut [PEANUTS] Allergy Unknown UNK Verified 01/26/24 10:13 wool [WOOL] Allergy Unknown UNK Verified 01/26/24 10:13 peanuts Allergy Unknown hives Uncoded 01/26/24 10:13 Review of Systems Sugical H&P ROS: Negative: Constitution, Cardiovascular, Respiratory, Neurological, Psychiatric, Hem-Onc, Allergic/Immunologic, Gastrointestinal, Genitourinary, Musculoskeletal, Integumentary, Endocrine and Eyes/Ears/Nose/Throat Exam Surgical H&P Exam: Normal: HEENT, Normal: Heart, Normal: Lungs, Normal: Extremities, Normal: Abdomen, Normal: Skin and Normal: Neurological Plan Diagnosis/Plan: Unchanged I have reviewed the history and physical and performed a pertinent physical examination on my patient. No changes have occurred unless specified. Time Spent With Patient Time: Total time managing care of this patient today ____ minutes.
[2024-03-09 10:46] VITALS: BP 118/43; PULSE 52; RESP 18; TEMP 36.7; O2SAT 95
[2024-03-09 10:56] LABS: Glucose, Whole Blood 143 mg/dL (60-115)
[2024-03-09 11:00] VITALS: BMI 31.4
--- NOTE | 2024-03-09 11:03 | ECG_ITS ---
Test Reason : pre op Blood Pressure : / mmHG Vent. Rate : 054 BPM Atrial Rate : 054 BPM P-R Int : 000 ms QRS Dur : 108 ms QT Int : 460 ms P-R-T Axes : 000 021 047 degrees QTc Int : 436 ms Atrial fibrillation with Premature ventricular complexes Otherwise normal ECG When compared with ECG of 24-MAR-2023 13:23, Vent. rate has decreased Nonspecific T wave abnormality no longer evident in Inferior leads Referred By: Nadia Andrews Electronically Signed By:GELY ANAYA MD
[2024-03-09 11:06] LABS: INTERNATIONAL NORM RATIO 1.3 (0.9-1.1)
--- NOTE | 2024-03-09 11:52 | PC.NURSE ---
patient has chronic a-fib. 11:00 rhythmn on 3-lead changed. dr. mckoy at bedside to assess. 12 lead ekg ordered and was undetermined. dr. harris reviewed notes and patient history discussed with dr. mckoy and dr. wilson decision made to have procedure today. no interventions to be done in preop besides fluid bolus from dr. harris.
--- NOTE | 2024-03-09 12:23 | P.OPN-COLO_ITS ---
Colonoscopy Operative Note Operative Note Date of Service: 03/09/24 Narrative: Operative Information Procedure Description: Colonoscopy Indication: screening Anesthesia: MAC COLONOSCOPY Instrument: Olympus variable stiffness adult scope 190L Colonoscopy Monitoring: Vital signs and clinical assessment, continuous EKG monitoring, Pulse oximetry, Carbon Dioxide monitoring and blood pressure monitoring were done throughout the procedure. Colon withdrawal time was 10 minutes. Procedure: The patient was placed in the left lateral decubitis position and pre-procedure medications were administered. After a digital rectal examination of the ano-rectum, the video colonoscope was inserted into the rectum and advanced through the colon to the cecum/TI. The colonoscope was slowly withdrawn in a retrograde panoramic fashion and the colon mucosa was carefully examined including a retroflexed view of the rectum. Findings and interventions are described below. Procedure Difficulty: difficultm, unabel to reach cecum despite pressure and adult scope--redundant colon ++ plus he has umbilical hernia Findings: Terminal Ileum-not reached Cecum:not reached Ascending Colon: not reached Transverse Colon - 4-5 mm sessile polyp removed with cold forceps Descending Colon:normal Sigmoid Colon: mild diverticulosis Rectum: Retroflexion with small internal hemorrhoids seen, grade I Anorectum - normal Intervention: cold forceps Colon preparation: [place] Bowel Preparation Scale Right colon; n/a Transverse colon: 2 Left colon; 2 (0 = Unprepared colon segment with mucosa not seen due to solid stool that cannot be cleared. 1 = Portion of mucosa of the colon segment seen, but other areas of the colon segment not well seen due to staining, residual stool and/or opaque liquid. 2 = Minor amount of residual staining, small fragments of stool and/or opaque liquid, but mucosa of colon segment seen well. 3 = Entire mucosa of colon segment seen well with no residual staining, small fragments of stool or opaque liquid) Impression and Post Procedure Diagnosis: diverticulosis colon polyp internal hemorrhoids Plan: High fiber diet leaflet Avoid straining at stool, epsom salts and sitz bath, anusol supps or cream Repeat Colonoscopy in 6-12 months with colowrap or earlier if clinically indicated can restart coumadin and plavix today Above findings were reviewed with the patient and relevant handouts were provided if indicated.
[2024-03-09 12:28] VITALS: BP 97/54; PULSE 56; RESP 18; TEMP 36.2; O2SAT 96
[2024-03-09 12:49] VITALS: BP 105/59; PULSE 41; RESP 16; TEMP 36.2; O2SAT 95
== END 2024-03-09 13:28 | disposition home or self-care (01) ==
PROVIDERS: Nurse Practitioner; PCP Internal Medicine; Visit Provider Internal Medicine Gastroenterology
PROC: 0DJD8ZZ Inspection of Lower Intestinal Tract, Via Natural or Artificial Opening Endoscopic (ICD-10-PCS; CPT 45378; principal; 2024-03-09 11:20)
DX: Z12.11 Encounter for screening for malignant neoplasm of colon (principal); K63.5 Polyp of colon; K57.30 Diverticulosis of large intestine without perforation or abscess without bleeding; K64.0 First degree hemorrhoids; Z86.0101 Personal history of adenomatous and serrated colon polyps; L98.419 Non-pressure chronic ulcer of buttock with unspecified severity; E11.9 Type 2 diabetes mellitus without complications; I48.20 Chronic atrial fibrillation, unspecified; Z79.02 Long term (current) use of antithrombotics/antiplatelets; Z79.4 Long term (current) use of insulin; Z79.01 Long term (current) use of anticoagulants; Z79.84 Long term (current) use of oral hypoglycemic drugs
CPT/HCPCS: 45380; 36415; 82947; 85610; 88305; 93005; J2003; J2704

== ENCOUNTER → 2024-03-09 09:20 | Outpatient (BNV) | payer MEDICARE, SELFPAY | PROVIDERS: PCP Internal Medicine; Visit Provider Internal Medicine Gastroenterology | DX: Z12.11 Encounter for screening for malignant neoplasm of colon (principal); K63.5 Polyp of colon; K57.30 Diverticulosis of large intestine without perforation or abscess without bleeding; K64.0 First degree hemorrhoids | CPT/HCPCS: 45380 ==

== ENCOUNTER → 2024-03-09 11:03 | Outpatient (BNV) | payer MEDICARE, SELFPAY | PROVIDERS: PCP Internal Medicine; Visit Provider Internal Medicine Cardiovascular Disease | DX: I48.91 Unspecified atrial fibrillation (principal) | CPT/HCPCS: 93010 ==

== ENCOUNTER 2024-03-23 08:59 | Outpatient (AMB) | payer MEDICARE, SELFPAY ==
--- NOTE | 2024-03-23 09:08 | A.OFFVIS_ITS ---
Vital Signs 03/23/24 09:13 Height 6 ft 4 in Weight 260 lb 2.327 oz BMI 31.7 BP 118/68 Blood Pressure Location Lt brachial Position Sitting Pulse 76 Pulse Source Pulse Oximeter Pulse Oximetry (%) 95 Oxygen Delivery Method Room Air Intake Visit Reasons: S/P [place]; DR. Contreras Intake Note: Relevant Flags or Indicators ? Requires Risk Modeler? N Arthur presents in office today for a scheduled s/p FUV. Pt requires repeat colo q6-12 mos per umbilical obstruction. Relevant GI Sx as reported per pt? o?? Diarrhea - Intermittently, pt had previously been taking benefiber which was helpful. Pt had stopped in preparation for the colo. ? Hx of any recent surgeries? [place] w/ TH Risk Modeler Required: No Allergies peanut [PEANUTS] Allergy (Unknown, Verified 03/23/24 09:09) UNK wool [WOOL] Allergy (Unknown, Verified 03/23/24 09:09) UNK peanuts Allergy (Unknown, Uncoded 03/09/24 10:47) hives HPI HPI S/P [place]; DR. Contreras: Details: LAST VISIT Screen for colon cancer Tubular adenoma Plan patient will book procedure today with GI schedulers. Please call his systems test analyst's office for clearance and directions on went to hold Plavix and warfarin. Patient might need Lovenox bridge when holding warfarin. What to expect before during and after procedure discussed with patient patient continues to have postprandial loose stools. Patient was on antibiotics for UTI in the past. Will rule out C diff, check GI panel, CRP, fecal calprotectin. Patient denies any issues with anesthesia in the past. Split MiraLax and Dulcolax prep ordered. Patient is on Lantus half of the dose the night before the procedure as well as 2 nights before the procedure to avoid hypoglycemia. I will see him after the procedure, sooner on as needed basis. He is agreeable to this plan and verbalizes understanding of instructions. He was given the opportunity to ask questions and all questions answered. ? Thank you for allowing me to participate in his care Orders Orders GI Panel Today R19.7 C Reactive Protein Today K58.9 Calprotectin, Fecal Today R15.9 CDiff Gene PCR Today R19.7 Medications New bisacodyl (Dulcolax (bisacodyl)) take 4 tabs at noon the day before your colonoscopy 20 mg (4 x 5 mg) PO ONCE 4 tabs 0RF 1 day Z12.11 polyethylene glycol 3350 (Miralax) As directed by gastroenterology department at [facility] 238 grams PO ONCE 238 grams 0RF Z12.11 COLONOSCOPY SCREENING Findings: Terminal Ileum-not reached Cecum:not reached Ascending Colon: not reached Transverse Colon - 4-5 mm sessile polyp removed with cold forceps Descending Colon:normal Sigmoid Colon: mild diverticulosis Rectum: Retroflexion with small internal hemorrhoids seen, grade I Anorectum - normal Intervention: cold forceps Colon preparation: [place] Bowel Preparation Scale Right colon; n/a Transverse colon: 2 Left colon; 2 (0 = Unprepared colon segment with mucosa not seen due to solid stool that cannot be cleared. 1 = Portion of mucosa of the colon segment seen, but other areas of the colon segment not well seen due to staining, residual stool and/or opaque liquid. 2 = Minor amount of residual staining, small fragments of stool and/or opaque liquid, but mucosa of colon segment seen well. 3 = Entire mucosa of colon segment seen well with no residual staining, small fragments of stool or opaque liquid) Impression and Post Procedure Diagnosis: diverticulosis colon polyp internal hemorrhoids Plan: High fiber diet leaflet Avoid straining at stool, epsom salts and sitz bath, anusol supps or cream Repeat Colonoscopy in 6-12 months with colowrap or earlier if clinically indicated can restart coumadin and plavix today PATHOLOGY RESULTS Diagnosis Colon, transverse, polypectomy: Hyperplastic mucosal polyp TODAY'S VISIT Patient is here today for follow-up and to discuss colonoscopy results. Patient denies any ill effects from the prep, anesthesia or procedure itself. Patient reports loose stools after colonoscopy, however patient believes that this is because he stopped taking Benefiber few days before procedure. Bowels have normalized since he started it again. Patient denies melena, hematochezia. Colonoscopy results discussed with patient. One hyperplastic polyps seen in transverse colon, however unable to intubate pass transverse colon and recommendation was made to repeat colonoscopy with colowrap and do colonography. Patient denies any nausea or vomiting. Reports to have good appetite. 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 placement Family History Father Kidney cancer, primary, with metastasis from kidney to other site Heart disease Social History Household Members: Significant Other Housing: House Are you a primary hospice care sales consultant to a significant other at home: No Do you presently have visiting nurse or other home services: No Alcohol intake: never Patient Tobacco Use Status: Never used Tobacco Second Hand Smoke Exposure: No Advance Directives Date on File: 02/13/23 service: No Review of Systems Const Denies weight gain and Denies weight loss ENT Reports no additional complaints, Denies dysphagia and Denies odynophagia Card Reports no additional complaints Resp Reports no additional complaints GI Denies abdominal pain, Denies belching, Denies melena, Reports bloating, Denies change in bowel habits, Denies dysphagia, Denies excessive flatus, Denies dyspepsia, Denies heartburn, Denies diarrhea, Reports loose stools, Denies nausea, Denies odynophagia and Denies vomiting Reports no additional complaints Musc Reports no additional complaints Neuro Reports no additional complaints Psych Reports no additional complaints Endo Reports no additional complaints Physical Exam Vital Signs: Last Vital Signs Pulse 76 03/23/24 09:13 BP 118/68 03/23/24 09:13 Pulse Ox 95 03/23/24 09:13 Oxygen Delivery Method Room Air 03/23/24 09:13 BMI result Body Mass Index 31.7 Const General: healthy appearing and no acute distress Nutritional Appearance: obese Orientation/consciousness: patient oriented x3 Resp Effort & Inspection: normal respiratory effort, able to speak in complete sentences, no tracheal deviation and symmetric chest movement Auscultation: clear to auscultation bilaterally Cardio Rate: regular rate GI Inspection: Yes normal to inspection, No distended and Yes obesity Palpation (GI): Soft to palpation, not firm, nontender and No hepatosplenomegaly present Auscultation: normal bowel sounds General: Yes no CVA tenderness Back/Spine/Pelvis Back: no CVA tenderness Skin General skin exam: elasticity normal, turgor normal and dry skin Neuro General: patient oriented x3 Psych Appearance: grossly normal Mental Status: mental status grossly normal Results Reviewed Results Reviewed: Laboratory Tests 11/03/23 11/04/23 09:13 11:15 C-Reactive Protein 0.77 H Stool Calprotectin 7 C. difficile Tox B Gene NEGATIVE GI PANEL NEGATIVE Assessment & Plan Assessment & Plan (1) Postprandial diarrhea: Code(s): K52.9 - Noninfective gastroenteritis and colitis, unspecified (2) Status post colonoscopy: Code(s): Z98.890 - Other specified postprocedural states (3) GERD (gastroesophageal reflux disease): Code(s): K21.9 - Gastro-esophageal reflux disease without esophagitis Qualifiers: Esophagitis presence: esophagitis presence not specified Qualified Code(s): K21.9 - Gastro-esophageal reflux disease without esophagitis Plan Message sent to surgical schedulers to schedule patient for colonoscopy with colowrap in August. Patient will be sent for colonography. Prep sent to pharmacy. Patient will do the prep day before he is scheduled for colonography. Continue avoiding dietary triggers. Continue Benefiber with probiotics. Follow-up in 4-5 weeks. Patient is agreeable to plan of care and verbalizes understanding of instructions. He was given the opportunity to ask questions and all questions answered. Thank you for allowing me to participate in his care Orders: Orders CT colonography 03/23/24 R93.3 - Abnormal findings on diagnostic imaging of other parts of digestive tract Medications: New polyethylene glycol 3350 (Miralax) As directed by gastroenterology department at [facility] 238 grams PO ONCE 238 grams 0RF Z12.11 - Encounter for screening for malignant neoplasm of colon bisacodyl (Dulcolax (bisacodyl)) take 4 tabs at noon the day before your colonoscopy 20 mg (4 x 5 mg) PO ONCE 4 tabs 0RF 1 day Z12.11 - Encounter for screening for malignant neoplasm of colon Coding Level of Care Code Est Pt Level 3 (09577) Diagnoses Postprandial diarrhea K52.9 Status post colonoscopy Z98.890 Gastroesophageal reflux disease, unspecified whether esophagitis present K21.9 Esophagitis presence: esophagitis presence not specified Time Spent (min) 30 Comment 20 minutes spent with patient and additional 10 minutes spent reviewing his records
[2024-03-23 09:13] VITALS: BP 118/68; PULSE 76; O2SAT 95; BMI 31.7
== END 2024-03-23 09:40 | disposition home or self-care (01) ==
PROVIDERS: PCP Internal Medicine; Visit Provider Nurse Practitioner Family
DX: K52.9 Noninfective gastroenteritis and colitis, unspecified (principal); Z98.890 Other specified postprocedural states; K21.9 Gastro-esophageal reflux disease without esophagitis
CPT/HCPCS: 99213

== ENCOUNTER → 2024-03-23 08:59 | Outpatient (BNVA) | payer MEDICARE, SELFPAY | PROVIDERS: PCP Internal Medicine; Visit Provider Nurse Practitioner Family | DX: K52.9 Noninfective gastroenteritis and colitis, unspecified (principal); K21.9 Gastro-esophageal reflux disease without esophagitis; R93.3 Abnormal findings on diagnostic imaging of other parts of digestive tract; Z98.890 Other specified postprocedural states | CPT/HCPCS: 99212 ==

== ENCOUNTER → 2024-05-12 12:14 | Outpatient (BNVA) | payer MEDICARE, SELFPAY | PROVIDERS: PCP Internal Medicine; Visit Provider Nurse Practitioner Family | DX: K21.9 Gastro-esophageal reflux disease without esophagitis (principal); K52.9 Noninfective gastroenteritis and colitis, unspecified; D36.9 Benign neoplasm, unspecified site; R19.8 Other specified symptoms and signs involving the digestive system and abdomen | CPT/HCPCS: 99212 ==

== ENCOUNTER → 2024-05-27 13:31 | Outpatient (BNV) | payer MEDICARE, SELFPAY | PROVIDERS: PCP Internal Medicine; Visit Provider Radiology Diagnostic Radiology | DX: R93.3 Abnormal findings on diagnostic imaging of other parts of digestive tract (principal) | CPT/HCPCS: 74261 ==

== ENCOUNTER 2024-07-26 09:27 | Outpatient (AMB) | payer MEDICARE, SELFPAY ==
--- NOTE | 2024-07-26 09:33 | MHC.OFFVIS ---
Intake Visit Reasons: 6m/PVR Intake Note: Patient presents for follow up visit for urinary retention/PVR Urology Medications: finasteride, tamsulosin Blood Thinner: clopidogrel, warfarin PVR: 70mL Transportation Operations Manager Required: No Accompanied by: Self / Same As Patient Allergies peanut [PEANUTS] Allergy (Intermediate, Verified 07/26/24 09:55) Hives wool [WOOL] Allergy (Unknown, Verified 07/26/24 09:55) UNK Medication List - Last Reconciled 07/26/24 by ANA Pearce-TIMO ammonium lactate 12% 1 appl topical DAILY PRN aspirin (Adult Aspirin Regimen) 81 mg PO DAILY atorvastatin 40 mg PO BEDTIME bisacodyl (Dulcolax (bisacodyl)) 20 mg (4 x 5 mg) PO ONCE 1 day digoxin 0.25 mg PO DAILY diltiazem HCl 120 mg PO DAILY dulaglutide (Trulicity) 1.5 mg subcut TH@0900 finasteride 5 mg PO DAILY 90 days flash glucose scanning reader (KarazStyle Pat 2 [place]) As directed flash glucose sensor (FreeStyle Pat 2 Sensor kit) As directed folic acid 1 mg PO DAILY@1200 furosemide 20 mg PO DAILY insulin lispro (Humalog U-100 Insulin) insulin pump metformin ER 500 mg PO BID metoprolol tartrate 100 mg See Protocol PO BID@0900,1700 [id number]-klquwswwgQt-adhuhzmgE 3.5mg-400 unit- 5,000 unit/gram (Triple Antibiotic) 1 appl topical DAILY polyethylene glycol 3350 (Miralax) 238 grams PO ONCE silver sulfadiazine 1% 1 appl topical DAILY PRN sub-q insulin device, 20 unit (V-GO 20 device) tamsulosin 0.4 mg PO BEDTIME 90 days warfarin 5 mg PO SUTUTH@1800 HPI Comments Details: Randy is a 74-year-old male patient of Dr. Gaytan was accompanied by his significant other at today's office visit. He has a PMH of diabetes, GERD, CAD s/p PCI with SELENE in 11/2022, atrial fibrillation, history of bilateral lower extremity DVT anticoagulated with Coumadin, chronic venous stasis dermatitis, and anasarca. He presents to the office today for a follow up of his urinary retention. In discussion with the patient today he reports to be doing and feeling well. He reports compliance with finasteride and Flomax as prescribed. He denies having had any bothersome urinary issues or concerns since his last office visit here. In office urinalysis results reviewed with the patient today. PVR 70ml's. PSAs are as follows: PSA: 06/14 2.2, 02/11 1.7. Previous workup has also included a retroperitoneal ultrasound 08/12 noting bilateral kidneys with no hydronephrosis. Right kidney with punctate nonobstructing stones. There are 2 thinly septated cyst in the lower pole measuring 1.3 and 1.5 cm. No follow-up imaging is recommended. Left kidney 3 mm nonobstructing calculus in the lower pole. In office cystoscopy 06/14 noted enlarged anterior lobe otherwise NAD. Discussed importance of managing diabetes and correlation of uncontrolled diabetes on the bladder. He otherwise offers no other issues or concerns at this time. Plan The patient should maintain the current treatment regime of Finasteride and Tamsulosin to manage urinary retention due to Benign Prostatic Hyperplasia effectively. Monitoring for urinary incontinence and management of dietary triggers like caffeine is suggested. We will conduct an annual PSA evaluation to assess prostate health Follow-up is planned for six months to evaluate symptomatology and reconsider treatment strategy if the patient's clinical picture changes. The option of surgical intervention was acknowledged as not necessary currently due to effective symptom management through medication. Patient was informed and verbally consented to the use of an ambient scribe for clinic note documentation during this visit. Discussion Notes I discussed with the patient the effectiveness of the current medication regimen (Finasteride and Tamsulosin) in managing Benign Prostatic Hyperplasia and urinary retention. We explored lifestyle modifications to mitigate any urinary urgency and frequency highlighting the potential irritants like caffeine, alcohol, and spicy foods. The patient expressed an understanding of the potential side effects of medications, including dizziness and retrograde ejaculation, none of which he is currently experiencing. We agreed on continued medical management with periodic evaluations, including PSA monitoring. Surgical intervention considerations were addressed but deemed unnecessary at this stage. The patient accepted the proposed plan and expressed satisfaction with the current treatment. 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 placement Family History Father Kidney cancer, primary, with metastasis from kidney to other site Heart disease Social History Household Members: Significant Other Housing: House Are you a primary transitional care nurse to a significant other at home: No Do you presently have visiting nurse or other home services: No Alcohol intake: never Patient Tobacco Use Status: Never used Tobacco Second Hand Smoke Exposure: No Advance Directives Date on File: 02/13/23 service: No Review of Systems Const Reports as per [employer] [employer] [facility] [employer] [facility] Eyes Reports no additional complaints ENT Reports no additional complaints Card Reports as per HPI Resp Reports no additional complaints GI Reports as per HPI Reports as per HPI Musc Reports as per [employer] [facility] [employer] [facility] Skin/Breast Reports as per HPI Neuro Reports no additional complaints Psych Reports no additional complaints Endo Reports as per [employer] [facility] Jordan/Lymph Reports as per HPI Aller/Immun Reports no additional complaints Physical Exam Const General: cooperative, comfortable, no acute distress, well developed, alert and awake Nutritional Appearance: overweight Orientation/consciousness: patient oriented x3 HEENT Head: Yes normal to inspection, Yes No palpable skull fracture present and Yes atraumatic Eyes General: appearance normal, both eyes and all related structures Neck Neck: Yes normal visual inspection Chest Chest palpation & inspection: normal inspection of the chest Resp Effort & Inspection: normal respiratory effort and able to speak in complete sentences Cardio Rate: regular rate GI Inspection: Yes Abdominal panniculus present General: Yes no CVA tenderness Back/Spine/Pelvis Back: no CVA tenderness Skin Other: Bilateral lower extremities with anasarca with blebs and leaking lymphedma. Skin appears discolored and dry. Neuro General: patient oriented x3 Psych Other: unkempt in appearance Mental Status: mental status grossly normal Speech and movement: Normal speech and movement present and Clear speech present Affect: normal affect Attitude: cooperative Thought process: Normal thought process present Thought content: Normal thought content present Insight: Fair insight present (Psych) Judgement: Fair judgement present (Psych) Office Procedures Post Void Residual Post Residual Void Post Void Residual (PVR): 70 11763-Tzcm Void Residual by ultrasound Results AMB Urinalysis, Automated UA Leukoctes 15 Sindi/uL Last Edit by Breonna Olmedo CMA on 07/26/24 09:43 UA Nitrite Negative Last Edit by Breonna Olmedo, CARLOS on 07/26/24 09:43 UA Urobilinogen 0.2 mg/dL Last Edit by Breonna Olmedo CMA on 07/26/24 09:43 UA Protein 30 mg/dL Last Edit by Breonna Olmedo, CARLOS on 07/26/24 09:43 UA pH 6.0 Last Edit by Breonna Olmedo, CARLOS on 07/26/24 09:43 UA Blood 10 Koko/uL Last Edit by Breonna Olmedo, CARLOS on 07/26/24 09:43 UA Specific [place] 1.015 Last Edit by Breonna Olmedo, CARLOS on 07/26/24 09:43 UA Ketone Negative Last Edit by Breonna Olmedo CMA on 07/26/24 09:43 UA Bilirubin 0 mg/dL Last Edit by Breonna Olmedo, CARLOS on 07/26/24 09:43 UA Glucose 0 mg/dL Last Edit by Breonna Olmdeo CMA on 07/26/24 09:43 Results Reviewed Results Reviewed: Laboratory Last Values Urine pH (Auto) 6.0 07/26/24 09:38 Specific [place] (Auto) 1.015 07/26/24 09:38 Urine Protein (Auto) 30 mg/dL 07/26/24 09:38 Glucose (UA)(Auto) 0 mg/dL 07/26/24 09:38 Urine Ketones (Auto) Negative 07/26/24 09:38 Urine Blood (Auto) 10 Koko/uL 07/26/24 09:38 Urine Nitrite (Auto) Negative 07/26/24 09:38 Urine Bilirubin (Auto) 0 mg/dL 07/26/24 09:38 Urine Urobilinogen (Auto) 0.2 mg/dL 07/26/24 09:38 Leukocyte Esterase (Auto) 15 Sindi/uL 07/26/24 09:38 Assessment & Plan Assessment & Plan (1) Obstructive uropathy: Code(s): N13.9 - Obstructive and reflux uropathy, unspecified Category: Medical (2) Urinary retention: Code(s): R33.9 - Retention of urine, unspecified Category: Medical Plan In office urinalysis results reviewed with the patient today; as noted above. PVR 70 mL. Patient currently denies any bothersome urinary issues or concerns. He reports be happy with current voiding parameters. Continue finasteride and Flomax as prescribed; refills provided. Will continue with surveillance monitoring. Will obtain PSA in 6 months. Follow-up in 6 months with PSA and PVR; or sooner with any issues, concerns, and or questions. Orders: Orders AMB Post Void Residual by ultrasound Today R33.9 - Retention of urine, unspecified Prostate Specific Antigen Today R33.9 - Retention of urine, unspecified AMB Urinalysis Automated Today R33.9 - Retention of urine, unspecified Patient Instructions: The patient had an opportunity to ask questions regarding the treatment plan. All questions were answered. Physical exam, labs, and imaging were discussed and reviewed in detail. As well as risks, benefits, and discussion of treatment choices. No major barriers to understanding were identified. The patient expressed understanding and agreement with the above treatment plan. The patient was made aware they should contact our office by phone for worsening of their current condition, the appearance of new symptoms, or with any questions or concerns. Compliance is encouraged with any medications and follow up testing that is ordered. It is a privilege to be allowed the opportunity to participate in? your urological care.? Again, if you have any questions or concerns If you have any questions or concerns please do not hesitate to contact me. The office is [phone]. This note is constructed using voice recognition software. While every effort has been made to ensure accuracy director of reimbursement errors may have been included. Yours sincerely, JUWAN Pearce Coding Level of Care Code Est Pt Level 3 (76408) Complex EM visit Add On G2211 Diagnoses Obstructive uropathy N13.9 Urinary retention R33.9 CPT Codes Post Residual Void - PVR CPT Code: 89436-Ahpz Void Residual by ultrasound ([id number])
--- OUTSIDE RECORDS SUMMARY | 2024-07-26 10:39 | XMS_ITS | Encounter Summary ---
Author Organization [facility] Address [address] [place] [address] Care Team Providers Care Bindery Chief Name Role Phone Katie Gaytan MD Primary Care Provider [phone] Yovany Giles MD Unavailable Nyla Grullon NEW CLIENT BANKING SERVICES CLERK Unavailable Unavailable Encounter Details Date Type Department Care Team Description 05/12/2023 Orders Only Medical Records [address] [place] [id number] Fern Tabares DPM Social History Tobacco Use Types Packs/Day Years Used Date Smoking Tobacco: Never Smokeless Tobacco: Never Alcohol Use Standard Drinks/Week Comments No 0 (1 standard drink = 0.6 oz pur e alcohol) Sex Assigned at Date Recorded Not on file Job Start Date Occupation Industry Not on file Not on file Not on file documented as of this encounter Plan of Treatment Not on file documented as of this encounter Procedures Procedure Name Priority Date/Time Associated Diagnosis Comments OUTSIDE FOOT EXAM Routine 07/12/2022 documented in this encounter Results * OUTSIDE FOOT EXAM (07/12/2022) Fern Tabares DPM PERFORMABLES documented in this encounter Visit Diagnoses Not on filedocumented in this encounter Care Teams Bindery Chief Relationship Specialty Start Date End Date Katie Gaytan MD [address] [place] [phone] PCP - General 02/18/1999 Yovany Giles MD [address] [place] [address] Specialist Cardiology 08/12/22 Nyla Grullon, TAMAR [address] [place] [address] Cardiology 12/02/22 documented as of this encounter
--- OUTSIDE RECORDS SUMMARY | 2024-07-26 10:39 | XMS_ITS | Encounter Summary ---
Author Organization [facility] Address [address] [place] [address] Care Team Providers Care Outside Sales Advertising Executive Name Role Phone Katie Gaytan MD Primary Care Provider [phone] Yovany Giles MD Unavailable Nyla Grullon NP Unavailable Unavailable Encounter Details Date Type Department Care Team Description 03/23/2021 Hand Deicer Element Winder Report Medical Records [address] [place] [id number] Fern Tabares DPM Social History Tobacco Use [...] on file documented as of this encounter Visit Diagnoses Not on filedocumented in this encounter Care Teams Outside Sales Advertising Executive Relationship Specialty Start Date End Date Katie Gaytan MD [address] [place] [address] [phone] PCP - General 02/18/1999 Yovany Giles MD [address] [place] [address] [phone] Specialist Cardiology 08/12/22 Nyla Grullon NP [address] [place] [phone] Cardiology 12/02/22 documented as of this encounter
--- OUTSIDE RECORDS SUMMARY | 2024-07-26 10:39 | XMS_ITS | Encounter Summary ---
Author Organization [facility] Address [address] [place] [address] Care Team Providers Care Entry Level Web Developer Name Role Phone Katie Gaytan MD Primary Care Provider [phone] Yovany Giles MD Unavailable Nyla Grullon NP Unavailable Unavailable Encounter Details Date Type Department Care Team Description 10/09/2018 Orders Only Adult Medicine [address] [phone] Katie Gaytan MD [address] [place] [address] [phone] Social History Tobacco Use Types Packs/Day Years [...] on filedocumented in this encounter Care Teams Entry Level Web Developer Relationship Specialty Start Date End Date Katie Gaytan MD [address] [place] [address] [phone] PCP - General 02/18/1999 Yovany Giles MD [address] [place] [address] [phone] Specialist Cardiology 08/12/22 Nyla Grullon NP [address] [place] [address] 46933 Cardiology 12/02/22 documented as of this encounter
--- OUTSIDE RECORDS SUMMARY | 2024-07-26 10:39 | XMS_ITS | Encounter Summary ---
Author Organization [facility] Address [address] [place] [address] Care Team Providers Care Child Protective Investigator Name Role Phone Katie Gayatn MD Primary Care Provider [phone] Yovany Giles MD Unavailable Nyla Grullon NP Unavailable Unavailable Encounter Details Date Type Department Care Team Description 06/17/2023 Glycerin Operator Report Medical Records [address] [place] [address] Aamir Eastman MD Social History Tobacco Use Types Packs/Day Years Used Date Smoking Tobacco: Never Smokeless Tobacco: Never Alcohol Use Standard Drinks/Week Comments Yes 0 (1 standard drink = 0.6 oz pur e alcohol) rarely Sex Assigned at Date Recorded Not on file Job Start Date Occupation Industry Not on file Not on file Not on file documented as of this encounter Plan of Treatment Not on file documented as of this encounter Visit Diagnoses Not on filedocumented in this encounter Care Teams Child Protective Investigator Relationship Specialty Start Date End Date Katie Gaytan MD [address] [place] [address] [phone] PCP - General 02/18/1999 Yovany Giles MD [address] [place] [address]1020 Specialist Cardiology 08/12/22 Nyla Grullon NP [address] [place] [address] 68105 Cardiology 12/02/22 documented as of this encounter
--- OUTSIDE RECORDS SUMMARY | 2024-07-26 10:39 | XMS_ITS | Encounter Summary ---
Author Organization [facility] Address [address] [place] [address] Care Team Providers Care Coding Specialist Name Role Phone Katie Gaytan MD Primary Care Provider [phone] Yovany Giles MD Unavailable Nyla Grullon NP Unavailable Unavailable Reason for Visit * Reason Onset Date Comments Special Procedure 12/24/2018 Encounter Details Date Type Department Care Team Description 12/24/2018 Telephone Gastroenterology - [address] [place] [phone] Katie Gaytan MD [address] [place] [address] [phone] Special Procedure Social History Tobacco Use Types Packs/Day Years Used Date Smoking Tobacco: Never Smokeless Tobacco: Never Alcohol Use Standard Drinks/Week Comments No 0 (1 standard drink = 0.6 oz pur e alcohol) Sex Assigned at Date Recorded Not on file Job Start Date Occupation Industry Not on file Not on file Not on file documented as of this encounter Miscellaneous Notes * Telephone Encounter - Katelynn Pleitez - 12/24/2018 11:[address] Lucila PHAM, patient was on our wait list for colonoscopy, he said he already had it done a few months ago at [facility]. He will be calling you to obtain those notes so they can be added to his chart, thank you documented in this encounter Plan of Treatment Not on file documented as of this encounter Visit Diagnoses Not on filedocumented in this encounter Care Teams Coding Specialist Relationship Specialty Start Date End Date Katie Gaytan MD [address] [place] [address] 11265 PCP - General 02/18/1999 Yovany Giles MD [address] [place] [address] 94573 Specialist Cardiology 08/12/22 Nyla Grullon NP [address] [place] [address] 94963 Cardiology 12/02/22 documented as of this encounter
--- OUTSIDE RECORDS SUMMARY | 2024-07-26 10:39 | XMS_ITS | Encounter Summary ---
Author Organization [facility] Address [address] [place] [address] Care Team Providers Care Envelope Patternmaker Name Role Phone Katie Gaytan MD Primary Care Provider [phone] Yovany Giles MD Unavailable Nyla Grullon NP Unavailable Unavailable Reason for Visit * Reason Comments E-prescribe Rx Request Encounter Details Date Type Department Care Team Description 05/14/2022 Refill Adult Medicine [address] [address] Vicente Jarquin, PA-C [address] [place] [address] E-prescribe Rx Request Social History Tobacco Use Types Packs/Day Years [...] encounter Miscellaneous Notes * Telephone Encounter - Raine Sloan M.A. - 05/14/2022 1:18 PM EST Last office visit 12/04/21 Next office visit 05/21/22 * Telephone Encounter - Kamilah George - 05/14/2022 1:15 PM EST Patient would like script to be: E-PRESCRIBED/FAXED TO PHARMACY WHEN WAS THE PATIENT'S LAST APPOINTMENT IN ADULT MEDICINE? 12/04/21 WHEN WAS THE LAST TIME THE PATIENT SAW THEIR PCP? Same as above Does patient have an upcoming appointment? Yes 05/21/22 (THE MEDICATION REQUESTED IS ON THE MED LIST ABOVE) All of the medications requested were on the CURRENT MEDS list Did you check the Pharmacy information above?: YES Patient wants: 90 -day supply Is this a mail order prescription request ? NO If the refill is from a FAXED refill request what is the RX # listed on the fax? N/A Patients current insurance carrier is: Payor: [employer] / Plan: [employer] $0 [id number] / Product Type: PPO [id number] documented in this encounter Plan of Treatment Not on file documented as of this encounter Visit Diagnoses Not on filedocumented in this encounter Care Teams Envelope Patternmaker Relationship Specialty Start Date End Date Katie Gaytan MD [address] [place] [address] PCP - General 02/18/1999 Yovany Giles MD [address] [place] [address] 41267 Specialist Cardiology 08/12/22 Nyla Grullon NP [address] [place] [address] 71333 Cardiology 12/02/22 documented as of this encounter
--- OUTSIDE RECORDS SUMMARY | 2024-07-26 10:39 | XMS_ITS | Encounter Summary ---
Author Organization [facility] Address [address] [place] [address] Care Team Providers Care Impregnating Tank Operator Name Role Phone Katie Gaytan MD Primary Care Provider [phone] Yovany Giles MD Unavailable Nyla Grullon NP Unavailable Unavailable Encounter Details Date Type Department Care Team Description 07/09/2023 Orders Only Medical Records [address] [place] [address] Default, Provider Social History Tobacco Use Types Packs/Day Years [...] Procedure Name Priority Date/Time Associated Diagnosis Comments CHG PROTHROMBIN TIME Routine 03/04/2022 documented in this encounter Results * CHG PROTHROMBIN TIME (03/04/2022) Provider Default LAB documented in this encounter Visit Diagnoses Not on filedocumented in this encounter Care Teams Impregnating Tank Operator Relationship Specialty Start Date End Date Katie Gaytan MD [address] [place] [address] PCP - General 02/18/1999 Yovany Giles MD [address] [place] [address] Specialist Cardiology 08/12/22 Nyla Grullon NP [address] [place] [address] Cardiology 12/02/22 documented as of this encounter
--- OUTSIDE RECORDS SUMMARY | 2024-07-26 10:39 | XMS_ITS | Encounter Summary ---
Author Organization [facility] Address [address] [place] [address] Care Team Providers Care Hot Plate Plywood Press Offbearer Name Role Phone Katie Gaytan MD Primary Care Provider [phone] Yovany Giles MD Unavailable Nyla Grullon NP Unavailable Unavailable Reason for Visit * Reason Onset Date Comments refill request 04/30/2023 Encounter Details Date Type Department Care Team Description 04/30/2023 Telephone Cardio PVC POC [address] [facility] [address] [place] [address] Yovany Giles MD [address] [place] [address] [phone] refill request Social History Tobacco Use Types Packs/Day Years [...] encounter Miscellaneous Notes * Telephone Encounter - Heather Oconnell R.N. - 04/30/2023 2:30 PM EST Called pt this afternoon to clarify on digoxin. As per 03/03/23 encounter, pt was advised to stopped digoxin due to below therapeutic range. However, when pt was recently [place] [facility] [place], he was restarted on digoxin 250 mcg 1tablet daily (records reviewed). Pt scheduled for upcoming [facility] appt on05/19/23 with ANG. Due to this, digoxin refilled at this time to pt's preferred pharmacy. * Telephone Encounter - Lauryn Shen - 04/30/2023 2:06 PM EST Patient needs a refill on his digoxin .25mg taken once daily for a 90 day supply. Pharmacy confirmed. documented in this encounter Plan of Treatment Not on file documented as of this encounter Visit Diagnoses Not on filedocumented in this encounter Care Teams Hot Plate Plywood Press Offbearer Relationship Specialty Start Date End Date Katie Gaytan MD [address] [place] [address]13 PCP - General 02/18/1999 Yovany Giles MD [address] [place] [address] 24328 Specialist Cardiology 08/12/22 Nyla Grullon NP [address] [place] [address] 36037 Cardiology 12/02/22 documented as of this encounter
--- OUTSIDE RECORDS SUMMARY | 2024-07-26 10:39 | XMS_ITS | Encounter Summary ---
Author Organization [facility] Address [address] [place] [address] Care Team Providers Care Scruff Worker Name Role Phone Katie Gaytan MD Primary Care Provider [phone] Yovany Giles MD Unavailable Nyla Grullon NP Unavailable Unavailable Encounter Details Date Type Department Care Team Description 04/02/2023 Hospital Medical Records [address] [place] [address] Melanie Bonds Social History Tobacco Use Types Packs/Day Years Used Date Smoking Tobacco: Never Smokeless Tobacco: Never Alcohol Use Standard Drinks/Week Comments Yes 0 (1 standard drink = 0.6 oz pur e alcohol) rarely Sex Assigned at Date Recorded Not on file Job Start Date Occupation Industry Not on file Not on file Not on file COVID-19 Exposure Response Date Recorded In the last 10 days, have yo u been in contact with someone who was confirmed or suspected to have Coronavirus/COVID-19? No / Unsure 03/05/2023 1:16 PM EST documented as of this encounter Plan of Treatment Not on file documented as of this encounter Visit Diagnoses Not on filedocumented in this encounter Care Teams Scruff Worker Relationship Specialty Start Date End Date Katie Gaytan MD [address] [place] [address] [phone] PCP - General 02/18/1999 Yovany Giles MD [address] [place] [address] [phone] Specialist Cardiology 08/12/22 Nyla Grullon NP [address] [place] [address], [place] [address] Cardiology 12/02/22 documented as of this encounter
--- OUTSIDE RECORDS SUMMARY | 2024-07-26 10:40 | XMS_ITS | Encounter Summary ---
Author Organization [facility] Address [address] [place] [address] Care Team Providers Care Bindery Leadperson Name Role Phone Katie Gaytan MD Primary Care Provider [phone] Yovany Giles MD Unavailable Nyla Grullon NP Unavailable Unavailable Reason for Visit * Reason Comments E-prescribe Rx Request Encounter Details Date Type Department Care Team Description 03/15/2019 Refill Adult Medicine [address] [phone] Katie Gaytan MD [address] [place] [address] [phone] E-prescribe Rx Request Social History Tobacco Use [...] encounter Miscellaneous Notes * Telephone Encounter - Catrina Gonsalves M.A. - 03/15/2019 1:27 PM EST Last OV 03/12/19 Next OV 06/07/19 * Telephone Encounter - Radha Anthony - 03/15/2019 11:57 AM EST Patient would like script to be: E-PRESCRIBED/FAXED TO PHARMACY WHEN WAS THE PATIENT'S LAST APPOINTMENT IN ADULT MEDICINE? 03/12/19 WHEN WAS THE LAST TIME THE PATIENT SAW THEIR PCP? Same as above Does patient have an upcoming appointment? Yes 06/07/19 (THE MEDICATION REQUESTED IS ON THE MED LIST ABOVE) All of the medications requested were on the CURRENT MEDS list Did you check the Pharmacy information above?: YES Patient wants: 30 -day supply Is this a mail order prescription request ? NO If the refill is from a FAXED refill request what is the RX # listed on the fax? N/A Patients current insurance carrier is: Payor: [facility] / Plan: [employer] MEDICARE COMPLETE $15/$45 [facility] [place] [id number] / Product Type: PPO [id number] documented in this encounter Plan of Treatment Not on file documented as of this encounter Visit Diagnoses Not on filedocumented in this encounter Care Teams Bindery Leadperson Relationship Specialty Start Date End Date aKtie Gaytan MD [address] [place], [place] [phone] PCP - General 02/18/1999 Yovany Giles MD [address] [place], [place] [phone] Specialist Cardiology 08/12/22 Nyla Grullon NP [address] [place] [address] Cardiology 12/02/22 documented as of this encounter
--- OUTSIDE RECORDS SUMMARY | 2024-07-26 10:40 | XMS_ITS | Encounter Summary ---
Author Organization [facility] Address [address] [place] [address] Care Team Providers Care Vegetable Farm Manager Name Role Phone Katie Gaytan MD Primary Care Provider [phone] Yovany Giles MD Unavailable Nyla Grullon NP Unavailable Unavailable Encounter Details Date Type Department Care Team Description 07/30/2023 Orders Only Medical Records [address] [place] [address]27[address] Fern Tabares DPM Social History Tobacco Use [...] Associated Diagnosis Comments OUTSIDE FOOT EXAM Routine 07/16/2023 documented in this encounter Results * OUTSIDE FOOT EXAM (07/16/2023) Fern Tabares DPM PERFORMABLES documented in this encounter Visit Diagnoses Not on filedocumented in this encounter Care Teams Vegetable Farm Manager Relationship Specialty Start Date End Date Katie Gaytan MD [address] [place] [address] PCP - General 02/18/1999 Yovany Giles MD [address] [place] [address]1020 Specialist Cardiology 08/12/22 Nyla Grullon, TAMAR [address] [place] [address] Cardiology 12/02/22 documented as of this encounter
--- OUTSIDE RECORDS SUMMARY | 2024-07-26 10:40 | XMS_ITS | Encounter Summary ---
Author Organization [facility] Address [address] [place] [address] Care Team Providers Care Coil Inspector Name Role Phone Katie Gaytan MD Primary Care Provider [phone] Yovany Giles MD Unavailable Nyla Grullon NP Unavailable Unavailable Encounter Details Date Type Department Care Team Description 01/05/2019 Substance Abuse Specialist Report Medical Records [address] [place] [address] Lizz Stark MD Social History Tobacco Use Types Packs/Day [...] on filedocumented in this encounter Care Teams Coil Inspector Relationship Specialty Start Date End Date Katie Gaytan MD [address] [place] [address] [phone] PCP - General 02/18/1999 Yovany Giles MD [address] [place], [place] [phone] Specialist Cardiology 08/12/22 Nyla Grullon NP [address] [place] [address] 91808 Cardiology 12/02/22 documented as of this encounter
--- OUTSIDE RECORDS SUMMARY | 2024-07-26 10:40 | XMS_ITS | Encounter Summary ---
Author Organization [facility] Address [address] [place] [address] Care Team Providers Care Food Cashier Name Role Phone Katie Gaytan MD Primary Care Provider [phone] Yovany Giles MD Unavailable Nyla Grullon NP Unavailable Unavailable Reason for Visit * Reason Comments E-prescribe Rx Request Encounter Details Date Type Department Care Team Description 06/03/2019 Refill Adult Medicine [address] [phone] Katie Gaytan MD [address] [place] [address] [phone] E-prescribe Rx Request Social History Tobacco Use [...] Telephone Encounter - Raine Sloan M.A. - 06/03/2019 8:47 AM EST Lab Results Component Value Date CHOL 160 03/12/2019 LDL 93 03/12/2019 HDL 51 03/12/2019 TRIG 83 03/12/2019 SGOT 15 02/25/2018 SGPT 18 02/25/2018 * Telephone Encounter - Tai Cuevas - 06/03/2019 8:38 AM EST Patient would like script to be: E-PRESCRIBED/FAXED TO PHARMACY WHEN WAS THE PATIENT'S LAST APPOINTMENT IN ADULT MEDICINE? 03/12/19 WHEN WAS THE LAST TIME THE PATIENT SAW THEIR PCP? Same as above Does patient have an upcoming appointment? Yes 06/07/2019 (THE MEDICATION REQUESTED IS ON THE MED [...] N/A Patients current insurance carrier is: Payor: [facility] / Plan: [facility] MEDICARE COMPLETE $15/$45 [facility] [id number] / Product Type: PPO [id number] documented in this encounter Plan of Treatment Not on file documented as of this encounter Visit Diagnoses Not on filedocumented in this encounter Care Teams Food Cashier Relationship Specialty Start Date End Date Katie Gaytan MD [address] [place], [place] [phone] PCP - General 02/18/1999 Yovany Giles MD [address] [place] [address] Specialist Cardiology 08/12/22 Nyla Grullon NP [address] [place], [place] [phone] Cardiology 12/02/22 documented as of this encounter
--- OUTSIDE RECORDS SUMMARY | 2024-07-26 10:40 | XMS_ITS | Encounter Summary ---
Author Organization [facility] Address [address] [place] [address] Care Team Providers Care Counselor Manager Name Role Phone Katie Gaytan MD Primary Care Provider [phone] Yovany Giles MD Unavailable Nyla Grullon NP Unavailable Unavailable Encounter Details Date Type Department Care Team Description 04/30/2012 Staffing Assistant Report Medical Records [address] [place] [address] An Aranda MD Social History Tobacco Use Types Packs/Day Years Used Date Smoking Tobacco: Never Smokeless Tobacco: Never Alcohol Use Standard Drinks/Week Comments Not Asked 0 (1 standard drink = 0.6 oz pur e alcohol) Sex Assigned at Date Recorded Not on file Job Start Date Occupation Industry Not on file Not on file Not on file documented as of this encounter Plan of Treatment Not on file documented as of this encounter Visit Diagnoses Not on filedocumented in this encounter Care Teams Counselor Manager Relationship Specialty Start Date End Date Katie Gaytan MD [address] [place] [address] [phone] PCP - General 02/18/1999 Yovany Giles MD [address] [place] [address] [phone] Specialist Cardiology 08/12/22 Nyla Grullon NP [address] [place] [address] Cardiology 12/02/22 documented as of this encounter
--- OUTSIDE RECORDS SUMMARY | 2024-07-26 10:40 | XMS_ITS ---
Author Organization [facility] Address [address] [facility] [address] [place] [address] Care Team Providers Care Human Resources Assistant Manager Name Role Phone Lucila Wichosandra Primary Care Provider NAT Bai [phone] REASON FOR VISIT Vein study Results Encounters Encounter Location Date Provider Diagnosis [facility] [address] [facility] [address] [place] [address] 06/18/2024 NAT BROWN Plan Of Treatment Next Appt Details Provider Name:NAT BROWN, 08/20/2024 09:15:00 AM, [address] [facility], [facility] [address], [place], [address], Progress Notes * Randy TANDOB:1950 (74 yo M)Acc No.[id number]:06/18/2024 Patient:?Randy TAN :1950???Age:74 Y???Sex:Male Address:[address] [place] [address] * true * Date:? Generated for Printi ng/Tl/eTransmitting on:?07/26/2024 10:40 AM EDT
--- OUTSIDE RECORDS SUMMARY | 2024-07-26 10:40 | XMS_ITS | Encounter Summary ---
Author Organization [facility] Address [address] [place] [address] Care Team Providers Care Blow Mold Operator Name Role Phone Katie Gaytan MD Primary Care Provider Yovany Giles MD Unavailable Nyla Grullon NP Unavailable Unavailable Encounter Details Date Type Department Care Team Description 05/03/2022 Geriatric Nurse Assistant Report Medical Records [address] [place] [address] Fern Tabares DPM Social History Tobacco Use [...] on filedocumented in this encounter Care Teams Blow Mold Operator Relationship Specialty Start Date End Date Katie Gaytan MD [address] [place] [address] [phone] PCP - General 02/18/1999 Yovany Giles MD [address] [place] [address] [phone] Specialist Cardiology 08/12/22 Nyla Grullon NP [address] [place] [address] Cardiology 12/02/22 documented as of this encounter
--- OUTSIDE RECORDS SUMMARY | 2024-07-26 10:40 | XMS_ITS | Encounter Summary ---
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
--- OUTSIDE RECORDS SUMMARY | 2024-07-26 10:40 | XMS_ITS | Encounter Summary ---
Author Organization [facility] Address [address] [place] [address] Care Team Providers Care Derrick Boat Captain Name Role Phone Katie Gaytan MD Primary Care Provider [phone] Yovany Giles MD Unavailable Nyla Grullon NP Unavailable Unavailable Reason for Visit * Reason Comments E-prescribe Rx Request Encounter Details Date Type Department Care Team Description 09/27/2023 Refill Adult Medicine [address] [phone] Katie Gaytan MD [address] [place] [address] [phone] E-prescribe Rx Request Social History Tobacco Use [...] encounter Miscellaneous Notes * Telephone Encounter - Mickie Owens PA-C - 09/29/2023 10:21 AM EDT Up to date on appts. 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
--- OUTSIDE RECORDS SUMMARY | 2024-07-26 10:40 | XMS_ITS | Encounter Summary ---
Author Organization [facility] Address [address] [place] [address] Care Team Providers Care Human Services Professional Name Role Phone Katie Gaytan MD Primary Care Provider [phone] Yovany Giles MD Unavailable Nyla Grullon [employer] Unavailable Unavailable Encounter Details Date Type Department Care Team Description 08/30/2021 Orders Only Adult Medicine [address] [phone] Katie Gaytan MD [address] [place] [address] [phone] Preoperative examination; Screening for deficiency anemia; [facility] current use of anticoagulant therapy Social History Tobacco Use Types Packs/Day Years [...] on file documented as of this encounter Results * (ABNORMAL) THROMBOPLASTIN TIME, PARTIAL (09/06/2021 11:57 AM EDT) Partial Thromboplastin Time 46.2(H) 24.1 - 39.3 sec 09/06/2021 4:07 PM EDT [facility] 09/06/2021 11:5 7 AM EDT 09/06/2021 11:58 AM EDT Narrative [facility] - 09/06/2021 4:07 PM EDT Release to patient->Immediate Katie Gaytan MD LAB Performing Organization Address [facility]/ZIP Co de Phone Number [facility] * (ABNORMAL) PROTHROMBIN TIME (09/06/2021 11:57 AM EDT) Prothrombin Time 33.1(H) 10.6 - 13.9 SEC 09/06/2021 4:07 PM EDT [facility] INR 2.80 09/06/2021 4:07 PM EDT [facility] 09/06/2021 11:5 7 AM EDT 09/06/2021 11:58 AM EDT Narrative [facility] - 09/06/2021 4:07 PM EDT Release to patient->Immediate Katie Gaytan MD LAB Performing Organization Address [facility] Co de Phone Number [facility] * (ABNORMAL) CBC (AUTO DIFF PLATELET) (09/06/2021 11:57 AM EDT) WHITE BLOOD COUNT 5.6 4.8 - 10.8 x10-3/uL 09/06/2021 3:56 PM EDT [facility] RED BLOOD COUNT 5.6(H) 4.5 - 5.5 x10-6/uL 09/06/2021 3:56 PM EDT [facility] Hemoglobin 13.6 13.5 - 17.5 g/dL 09/06/2021 3:56 PM EDT [facility] Hematocrit 46.2 42 - 54 % 09/06/2021 3:56 PM EDT [facility] MEAN CORPUSCULAR VOLUME 83.1 79 - 98 fL 09/06/2021 3:56 PM EDT [facility] HEMOGLOBIN 24.5(L) 27 - 32 pg 09/06/2021 3:56 PM EDT [facility]ULAR HGB CONC 29.4(L) 32 - 37 g/dL 09/06/2021 3:56 PM EDT [facility] RED CELL DISTRIBUTION WIDTH 16.4(H) 11 - 15 % 09/06/2021 3:56 PM EDT [facility] 238 130 - 400 x10-3/uL 09/06/2021 3:56 PM EDT [facility] MEAN PLATELET VOLUME 9.7 7 - 11 fL 09/06/2021 3:56 PM EDT [facility] NRBC % AUTO 0.0 <1 % 09/06/2021 3:56 PM EDT [facility] NEUTROP[facility] % 62.0 % 09/06/2021 3:56 PM EDT [facility] % 24.2 % 09/06/2021 3:56 PM EDT [facility] MONO % 9.5 % 09/06/2021 3:56 PM EDT [facility] EOS % 3.4 % 09/06/2021 3:56 PM EDT [facility] BASO % 0.5 % 09/06/2021 3:56 PM EDT [facility] IMMATURE GRANULOCYTES % 0.4 % 09/06/2021 3:56 PM EDT [facility] NRBC # AUTO 0.00 <0.1 x10-3/uL 09/06/2021 3:56 PM EDT [facility] NEUT # 3.46 1.5 - 7.0 x10-3/uL 09/06/2021 3:56 PM EDT [facility] LYMPH # 1.35 1 - 5.0 x10-3/uL 09/06/2021 3:56 PM EDT [facility] MONO # 0.53 0.2 - 1.0 x10-3/uL 09/06/2021 3:56 PM EDT [facility] EOS # 0.19 0 - 0.5 x10-3/uL 09/06/2021 3:56 PM EDT [facility] BASO # 0.03 0 - 0.2 x10-3/uL 09/06/2021 3:56 PM EDT [facility] IMMATURE GRANULOCYTES # 0.02 0 - 0.03 x10-3/uL 09/06/2021 3:56 PM EDT [facility] 09/06/2021 11:5 7 AM EDT 09/06/2021 11:58 AM EDT Narrative [facility]TE[facility] - 09/06/2021 3:56 PM EDT Release to patient->Immediate Katie Gaytan MD LAB [facility] MONTEJO documented in this encounter Visit Diagnoses Diagnosis Preoperative examination Preoperative examination, unspecified Screening for deficiency anemia Screening for other and unspecified deficiency anemia [facility] current use of anticoagulant therapy 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) Type II or unspecified type diabetes mellitus with other specified manifestations, not stated as uncontrolled Preoperative examination Preoperative examination, unspecified Screening for deficiency anemia Screening for other and unspecified deficiency anemia [employer] current use of anticoagulant therapy Encounter for therapeutic drug monitoring Acute thromboembolism of deep veins of left lower extremity (HCC) documented in this encounter Care Teams Human Services Professional Relationship Specialty Start Date End Date Katie Gaytan MD [address] [place] [phone] PCP - General 02/18/1999 Yovany Giles MD [address] [place] [phone] Specialist Cardiology 08/12/22 Nyla Grullon NP [address] [place] [phone] Cardiology 12/02/22 documented as of this encounter
--- OUTSIDE RECORDS SUMMARY | 2024-07-26 10:40 | XMS_ITS | Encounter Summary ---
Author Organization [facility] Address [address] [place] [address] Care Team Providers Care Oil Painter Name Role Phone Katie Gaytan MD Primary Care Provider Yovany Giles MD Unavailable Nyla Grullon NP Unavailable Unavailable Encounter Details Date Type Department Care Team Description 10/25/2022 SCAN Medical Records [address] [place] [id number] [facility] Social History Tobacco Use Types Packs/Day Years [...] suspected to have Coronavirus/COVID-19? No / Unsure 10/24/2022 1:01 PM EDT documented as of this encounter Plan of Treatment Not on file documented as of this encounter Visit Diagnoses Not on filedocumented in this encounter Care Teams Oil Painter Relationship Specialty Start Date End Date Katie Gaytan MD [address] [place] [address] [phone] PCP - General 02/18/1999 Yovany Giles MD [address] [place] [address] [phone] Specialist Cardiology 08/12/22 Nyla Grullon NP [address] [place] [address] [place] [address] Cardiology 12/02/22 documented as of this encounter
--- OUTSIDE RECORDS SUMMARY | 2024-07-26 10:40 | XMS_ITS | Encounter Summary ---
Author Organization [facility] Address [address] [place] [address] Care Team Providers Care Sexual Assault Counsellor Name Role Phone Katie Gaytan MD Primary Care Provider [phone] Yovany Giles MD Unavailable Nyla Grullon NP Unavailable Unavailable Reason for Visit * Reason Comments E-prescribe Rx Request Encounter Details Date Type Department Care Team Description 04/26/2024 Refill Cardio PVC POC [phone] [facility] [address] [place] [address] Nyla Grullon NP E-prescribe Rx Request Social History Tobacco Use [...] on filedocumented in this encounter Care Teams Sexual Assault Counsellor Relationship Specialty Start Date End Date Katie Gaytan MD [address] [place] [address] [phone] PCP - General 02/18/1999 Yovany Giles MD [address] [place] [address] [phone] Specialist Cardiology 08/12/22 Nyla Grullon NP [address] [place] [phone] Cardiology 12/02/22 documented as of this encounter
--- OUTSIDE RECORDS SUMMARY | 2024-07-26 10:40 | XMS_ITS | Encounter Summary ---
Author Organization [facility] Address [address] [place] [address] Care Team Providers Care Mixed [employer] Worker Name Role Phone Katie Gaytan MD Primary Care Provider [phone] Yovany Giles MD Unavailable Nyla Grullon NP Unavailable Unavailable Encounter Details Date Type Department Care Team Description 11/24/2013 General Helper Report Medical Records [address] [place] [address] Lesley Medeiros Social History Tobacco Use Types Packs/Day Years [...] on filedocumented in this encounter Care Teams [employer] Worker Relationship Specialty Start Date End Date Katie Gaytan MD [address] [place] [address] [phone] PCP - General 02/18/1999 Yovany Giles MD [address] [place] [address] [phone] Specialist Cardiology 08/12/22 Nyla Grullon NP [address] [place] [phone] Cardiology 12/02/22 documented as of this encounter
--- OUTSIDE RECORDS SUMMARY | 2024-07-26 10:40 | XMS_ITS | Clinical Summary ---
Author Organization [address] [facility] Address [address] [place] [address] Phone Care Team Providers Care Ergonomic Specialist Name Role Phone Katie Gaytan MD Primary Care Provider [phone] Allergies Active Allergy Reactions Criticality Noted Date Comments Lanolin Rash 04/17/2007 Allergic to wool causes rash Other 02/03/2023 Other reaction(s): Hives Peanut Hives 04/16/2006 Wool 04/02/2023 Medications ammonium lactate (AMLACTIN) 12 % cream Apply topically 2 times daily as needed. Active glucose sensor,implant-d examet device USE DIRECTED TO CHECK BLOOD GLUCOSE EVERY 14 DAYS Active finasteride (PROSCAR) 5 mg tablet Take 1 Tablet by mouth daily. Active insulin pump cart,10 units/day cartridge CHANGE POD DAILY, USE 4-6 CLICKS PER MEAL Active insulin lispro (HumaLOG U-100 Insulin) 100 unit/mL injection FOR USE IN V-GO 20 SUBCUTANEOUS INSULIN DELIVERY SYSTEM FOR MAX 55 UNITS/DAY. Active metoprolol tartrate (LOPRESSOR) 100 mg tablet TAKE 1 TABLET BY MOUTH TWO TIMES A DAY Active tamsulosin (FLOMAX) 0.4 mg 24 hr capsule Take 1 Capsule by mouth daily. Take 30 mins after same meal every day. Active warfarin (COUMADIN) 5 mg tablet TAKE 1 TO 2 TABLETS BY MOUTH ONCE DAILY. MAY CAUSE HEAVY BLEEDING AND TAKE AT THE SAME TIME EVERY DAY. DO NOT CHANGE DIETARY HABITS 024 Active lancets lancets to test BID and prn 007 Active Trulicity 1.5 mg/0.5 mL pen injector injection INJECT 1.5 MILLIGRAMS SUBCUTANEOUSLY ONCE A WEEK DIRECTED 2 mL 5 024 Active sub-q insulin device, 20 unit (V-GO 20) device Change POD daily, USE 2-3 clicks before each meal. #1 additional click for carb heavy meals. 30 kit 5 024 Active glucose blood test strip Use as instructed 100 each 2 024 2024 Active folic acid (FOLVITE) 1 mg tablet TAKE ONE TABLET BY MOUTH ONCE DAILY 90 tablet 1 Active aspirin 81 mg EC tablet Take 1 tablet (81 mg total) by mouth 1 (one) time each day. 025 2025 Active metFORMIN XR (GLUCOPHAGE-XR) 500 mg 24 hr tablet TAKE ONE TABLET BY MOUTH TWO TIMES A DAY WITH FOOD 60 tablet 2 025 Active dilTIAZem (CARDIZEM) 120 mg immediate release tablet Take 1 tablet (120 mg total) by mouth 1 (one) time each day. 90 tablet 1 025 Active digoxin (LANOXIN) 125 mcg (0.125 mg) tablet Take 1 tablet (125 mcg total) by mouth 1 (one) time each day. 90 tablet 2 025 Active FreeStyle Pat 2 Sensor kit 025 Active blood-glucose meter,continuous (FreeStyle Pat 3 [place]) miscIndications: DM (diabetes mellitus), type 2 with neurological complications (CMS/HCC) CGM, use with pat sensor 1 each 025 Active blood-glucose sensor (FreeStyle Pat 3 Sensor) deviceIndication s:DM (diabetes mellitus), type 2 with neurological complications (CMS/HCC) Box = Kit = EA, use one sensor every 14 days. 2 each 3 025 Active atorvastatin (LIPITOR) 40 mg tablet TAKE ONE TABLET BY MOUTH ONCE DAILY 90 tablet 1 025 Active furosemide (LASIX) 20 mg tablet TAKE ONE TABLET BY MOUTH ONCE DAILY 90 tablet 1 025 Active atorvastatin (LIPITOR) 40 mg tablet TAKE ONE TABLET BY MOUTH ONCE DAILY 024 2024 Discontinued furosemide (LASIX) 20 mg tablet TAKE ONE TABLET BY MOUTH ONCE DAILY 024 2024 Discontinued Active Problems Problem Noted Date Diagnosed Date Personal history of DVT (deep vein thrombosis) 1 04/27/2023 Hypotension 05/16/2023 Sepsis 05/16/2023 Urinary tract infection with hematuria Overview (02/02/2024): Urosepsis, please see note 04/30/23, obstructive uropathy likely from BPH, requiring prolonged Julio cath/bag. Following with urology Dr. Michael Rutledge CHF (congestive heart failure) 02/25/2023 Overview (04/22/2024): Echo 01/2023 LVEF 55-60% with moderate LVH PYP 11/2023 without suggestion of TTR amyloidosis Assessment & Plan (04/22/2024 8:08 PM EST): Aside from some lower extremity edema, the patient appears euvolemic on exam. His HFpEF is likely driven by his weight, atrial fibrillation, and high suspicion of KIRILL. Sleep study ordered as above. His heart rate is well-controlled on his current digoxin, beta-ela, and calcium channel ela. Will update a digoxin level at his convenience. He remains anticoagulated with warfarin and has not had any bleeding issues.. He has plans for an upcoming colonoscopy. From a cardiovascular standpoint with his atrial fibrillation, he does not require a Lovenox bridge. However, he tells me that he typically is bridged given his prior history of DVTs. Will defer this decision to his PCP. CAD (coronary artery disease) 02/25/2023 Overview (04/22/2024): SELENE to D1 11/2022 following abnormal stress test Assessment & Plan (04/22/2024 8:08 PM EST): The patient has no anginal symptoms to his current albeit somewhat limited MET workload. He is more than 1 year status post SELENE, and his Plavix has been stopped. We do recommend aspirin 81 mg daily in conjunction with his warfarin. Continue medical therapy with beta-ela, calcium channel ela, statin. He will notify me of any changes in his current condition Assessment & Plan (03/24/2024 1:07 PM EST): Cardiomyopathy 10/25/2022 Overview (02/02/2024): Last Assessment & Plan: Left ventricular systolic function was reported to be normal from outside echo report. Does have a LVH. Will rule out amyloidosis. Decreased cardiac ejection fraction 10/24/2022 Tremor 10/24/2022 Chest pain 10/16/2022 Chronic venous stasis 10/21/2019 Atrial fibrillation 09/05/2017 Overview (02/02/2024): Last Assessment & Plan: Rate appears normal. Is on triple therapy including high-dose metoprolol, low- dose diltiazem and digoxin. Will check dig level. 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 He attributes it to his retired lifestyle with no need for specific sleeping schedule. However, the patient, his and his PCP all question why he has atrial fibrillation. It is likely that KIRILL is contributing to this diagnosis. As such, will update his sleep study and if necessary, recommend PAP therapy. We discussed a typical home sleep study. We also discussed that there are multiple masks available and different settings on machines making PAP therapy tolerable for most people. The patient does admit that he has friends who report that they feel so much better when their KIRILL is treated. He is willing to undergo the workup. Calculus of kidney 11/13/2006 Overview (02/02/2024): followed by Dr. 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 Please check your sugars at the following times of day: before breakfast, before dinner and before bedtime Your Blood Sugar Goals Pre Meal: 90-130 2 hours after meals: 110-160 Bedtime: 110-150 Use the Results ?? Bring your glucometer to every appointment ?? Write your fingerstick blood sugars down on a log sheet or record book. Bring them to your appointment ?? Look for patterns in the numbers. The results help you and your provider make decisions about your diabetes treatment plan. Your Results and your Goals Your Result / Date of Completion Your Goal / How Often to Assess Component Value Date HGBA1C 7.6 03/13/2013 Less than 7% --- 2-4 times per year BP Readings from Last 1 Encounters: 02/14/14 140/80 Less than 140/90 --- once per year Component Value Date MALBCR 48 03/13/2013 Less than 30 --- once per year Component Value Date LDL 103 03/13/2013 Less than 100 --- once per year Wt Readings from Last 1 Encounters: 02/14/14 341 lb 1.6 oz (154.722 kg) Your goal weight by next visit: 336lb --- reassess 2-4 times a year Health Maintenance Due Topic Date Due ? Adult Immunization: Zostavax For Patients Over 60 2012 ? Diabetes: Annual Care Plan 06/16/2013 ? Adult Immunization: Influenza For High Risk Patients 12/20/2013 ? Diabetes: Blood Sugar Control Test (Hgba1c) 01/18/2014 Your Action Plan Check blood glucose as directed and write down all results. Contact me if you experience any barriers to care such as inability to purchase your medication, difficulty getting to your appointments or difficulty understanding your care plan make sure you continue to follow with your specilaist at [facility], and get me the record. 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 No evidence of reflux esophagitis. Essential hypertension, benign 05/29/2005 Assessment & Plan (04/22/2024 8:08 PM EST): Blood pressure well-controlled on current regimen of calcium channel ela, diuretic and beta-ela. Continue Assessment & Plan (03/24/2024 1:07 PM EST): Morbid obesity 05/29/2005 Pure hypercholesterolemia 05/29/2005 Assessment & Plan (04/22/2024 8:08 PM EST): Very well-controlled lipid profile on current dose statin given known CAD. Continue Assessment & Plan (03/24/2024 1:07 PM EST): Encounters Date Type Department Care Team Description 07/21/2024 Anticoagulation - Warfarin Visit Coumadin [address] [phone] Shonna White LPN Personal history of DVT (deep vein thrombosis) (Primary Dx) 07/15/2024 Anticoagulation - Warfarin Visit Coumadin [address] [phone] Shonna White LPN Personal history of DVT (deep vein thrombosis) (Primary Dx) 07/07/2024 Anticoagulation - Warfarin Visit [address] [phone] Shonna White LPN Personal history of DVT (deep vein thrombosis) (Primary Dx) 06/23/2024 Anticoagulation - Warfarin Visit [address] [phone] Shonna White LPN Personal history of DVT (deep vein thrombosis) (Primary Dx) 06/21/2024 9:40 AM EST Office Visit Endocrinology - [address] [phone] Julia Oconnell PA DM (diabetes mellitus), type 2 with neurological complications (CMS/HCC) (Primary Dx); Essential hypertension, benign; Pure hypercholesterolemia ; Microalbuminuria 06/16/2024 Anticoagulation - Warfarin Visit [address] [phone] Shonna White LPN Personal history of DVT (deep vein thrombosis) (Primary Dx) 06/14/2024 9:00 AM EST Ancillary Procedure [facility] [address] [facility] [place] [address] [place] [phone] Post-thrombotic syndrome; Leg swelling 06/02/2024 Anticoagulation - Warfarin Visit [address] [phone] Shonna White LPN Personal history of DVT (deep vein thrombosis) (Primary Dx) 06/02/[address] [phone] Katie Gaytan MD last office visit notes 05/26/2024 Anticoagulation - Warfarin Visit Coumadin [address] [phone] Shonna White LPN Personal history of DVT (deep vein thrombosis) (Primary Dx) 2024 Anticoagulation - Warfarin Visit Coumadin [address] [phone] Shonna White LPN Personal history of DVT (deep vein thrombosis) (Primary Dx) 05/13/2024 Anticoagulation - Warfarin Visit Coumadin [address] [phone] Shonna White LPN Personal history of DVT (deep vein thrombosis) (Primary Dx) 05/06/2024 Telephone [facility] [address] [facility] [address] [place] [phone] Bernie Palmer MA Med Refill (Incoming fax [facility] specialty pharmacy for Diltiazem 120mg tabs ) 05/06/2024 Telephone [facility] 102 [address] [facility] [address] [place] [phone] Radha Hudson NP Appointment (Sleep Study) 05/05/2024 Anticoagulation - Warfarin Visit Coumadin [address] [phone] Shonna White LPN Personal history of DVT (deep vein thrombosis) (Primary Dx) 04/30/2024 Telephone [facility] [address] [facility] [address] [place] [phone] Elle Smith MA Med Refill (See note) 04/29/2024 Telephone [facility] [address] [facility] [address] [place] [address] Radha Hudson NP 04/28/2024 Anticoagulation - Warfarin Visit [facility] [address] [phone] Shonna White, [employer] Personal history of DVT (deep vein thrombosis) (Primary Dx) from Last 3 Months Immunizations Name Administration Dates Next Due H1N1 Inj Preservative Free 03/09/2009 Influenza trivalent, 0.5mL ( Fluad) 65yo and older 12/25/2021,01/02/2021,01/19/2019 Influenza trivalent, 0.5mL, preservative free (Fluarix; FluLaval; Fluzone) ages 6mo and older (Afluria) 3 years and older 01/16/2011,02/20/2010,01/14/2008,01/19,03/14/2006,01/31/2005 Influenza, Unspecified 01/02/2021,2017,02/05/2017,02/02,02/02/2015,01/24/2014,02/04/2012 Bioparaiso Covid-19 Bivalent, Or iginal + Ba.1 (Non-US Trademark COMIR[employer]my[employer]Dreams Bivalent) 12/25/2021 Bioparaiso SARS-CoV-2 COVID-19, mRNA, LNP-S, preservative free 01/20/2021 Pneumococcal conjugate 13 va lent (Prevnar 13, PCV13) 2mo and older 03/10/2018 Pneumococcal polysaccharide 23 valent (Pneumovax 23) 2yo and older 06/07/2019,04/17/2007 Td, Unspecified 02/04/2003 Tdap Tetanus diptheria acell ular pertussis (Boostrix; Adacel) 7yo and older 03/04/2013 Zoster recombinant (Shingrix ) 19yo and older 03/08/2019 Surgical History Surgery Date Site/Laterality Comments HERNIA REPAIR PROCEDURE: REPAIR INGUINAL HERNIA Medical History Medical History Date Comments Calculus of kidney 11/13/2006 DX:Calculus o f kidney Type II or unspecified type diabetes mellitus with unspecified complication, not stated as uncontrolled DX:Type II or unspecified ty pe diabetes mellitus with unspecified complication, not stated as uncontrolled Esophageal reflux DX:Esophageal reflux Unspecified essential hypertension DX:Unspecified essential hypertension Essential hypertension, benign 05/29/2005 D X:Essential hypertension, benign Umbilical hernia 03/28/2010 DX:Umbilical he rnia Umbilical hernia without obs truction and without gangrene 03/02/2015 DX:Umbilical hernia without obstruction and without gangrene DM (diabetes mellitus), type 2 with neurological complications (CMS/HCC) 09/01/2017 DX:DM (diabetes m ellitus), type 2 with neurological complications (HCC) Family History Medical History Relation Name Comments No Known Problems Aunt No Known Problems Brother possible heart murmur Father No Known Problems Maternal Grandfather No Known Problems Maternal Grandmother No Known Problems Mother No Known Problems Other No Known Problems Paternal Grandfather No Known Problems Paternal Grandmother No Known Problems Sister No Known Problems Uncle Blindness Neg Hx Cataracts Neg Hx Glaucoma Neg Hx Macular degeneration Neg Hx Strabismus Neg Hx Relation Name Status Comments Aunt Brother Father Maternal Grandfather Maternal Grandmother Mother Other Paternal Grandfather Paternal Grandmother Sister Uncle Social History Tobacco Use Types Packs/Day Years Used Date Smoking Tobacco: Never Smokeless Tobacco: Never Tobacco Cessation:Counseling Given: Not Answered Alcohol Use Standard Drinks/Week Comments Yes 0 (1 standard drink = 0.6 oz pur e alcohol) rarely Housing Instability Answer Date Recorde d Are you worried that in the next 2 months you may not have stable housing? No 03/22/2024 Food Access & Nutrition Answer Date Rec orded Do you have access to a vari ety of food including fruits and vegetables? Yes 03/22/2024 Access to Healthcare Answer Date Record ed Within the last 3 months, ho w many times did you visit the emergency department for your medical care? 0 03/22/2024 Health Literacy Answer Date Recorded How often do you need to hav e someone help you when you read instructions, pamphlets, or other written material from your doctor or pharmacy? Never 03/22/2024 Caregiver: How often do you need to have someone help you when you read instructions, pamphlets, or other written material from your doctor or pharmacy? Not on file 03/22/2024 Financial Risk Answer Date Recorded How hard is it for you to pa y for the very basics like food, housing, medical care, and air conditioning / heating? Not very hard 03/22/2024 Transportation Answer Date Recorded Has the lack of transportati on kept you from meetings, work, or from getting things needed for daily living? No Has the lack of transportati on kept you from medical appointments or from getting medications? No 03/22/2024 Social Isolation Answer Date Recorded How often do you feel lonely or isolated from th ose around you? Never 03/22/2024 Food Risk Answer Date Recorded Within the past 12 months we worried whether our food would run out before we got money to buy more. Never true 03/22/2024 Within the past 12 months th e food we bought just didn't last and we didn't have money to get more. Never true 03/22/2024 Dependent Care Answer Date Recorded Do you need help finding or paying for care for your loved ones. For example, children's program coordinator or elderly care for an older adult? No 03/22/2024 Education Answer Date Recorded Do you think completing more education or training, like finishing a GED, going to college, or learning a trade, would be helpful for you? No 03/22/2024 Employment and Income Answer Date Recor ded During the last four weeks, have you been actively looking for work? No 03/22/2024 Living Situation Answer Date Recorded What is your living situation? 1 05/23/2023 Sex and Gender Information Value Date Recorded Sex Assigned at Male 03/15/2024 1:08 PM EST Legal Sex Male 6:33 AM EST Gender Identity Male 03/15/2024 1:08 PM EST Sexual Orientation Choose not to disclose 2023 1:08 PM EST Obstetrics History Last Filed Vital Signs Vital Sign Reading Time Taken Comments Blood Pressure 116/62 06/21/2024 9:54 AM EST Pulse 63 06/21/2024 9:54 AM EST Temperature 35.8 ??C (96.4 ??F) 06/21/2024 9:54 AM ES T Respiratory Rate 12 03/24/2024 11:35 AM EST Oxygen Saturation 95% 06/21/2024 9:54 AM EST Inhaled Oxygen Concentration - - Weight 122 kg (269 lb 3.2 oz) 06/21/2024 9:54 AM EST Height 193 cm (6' 4 ) 06/21/2024 9:54 AM EST Body Mass Index 32.77 06/21/2024 9:54 AM EST Plan of Treatment Upcoming Encounters Date Type Department Care Team (Late st Contact Info) Description 08/23/2024 9:30 AM EDT Office Visit Vascular Surgery - [place] [address] [place] [address] Talia Olmedo PA [address] [facility] [address] [place] [address] 10/20/2024 10:10 AM EDT Office Visit [facility] [address] [facility] 102 [place] [phone] Radha Hudson NP 300 [facility] [address] [place] [address] 12/09/2024 10:00 AM EDT Ancillary Procedure [facility] [address] [facility] 101 [place] [phone] 12/24/2024 9:30 AM EDT Office Visit [facility] - [address] [phone] Katie Gaytan MD [address] [place] [phone] 03/30/2025 9:20 AM EST Office Visit Endocrinology - [address] [phone] Julia Oconnell PA [address] [place] [address] Health Maintenance Due Date Last Done Comments DTaP,Tdap,and Td Vaccines (3 - Td or Tdap) 03/04/2023 03/04/2013, 02/04/2003 Diabetes: Annual Foot Exam 11/27/2024 11/28/2023 Diabetes: Blood Sugar Control Test (HGBA1C) 12/22/2024 06/21/2024, 03/17/2024, 11/11/2023, Additional history exists Diabetes: Annual Retina Eye Exam 02/23/2025 02/24/2024 Depression Screening 03/22/2025 03/22/2024 Social Influencers of Health Screening 03/22/2025 03/22/2024 Falls Risk Assessment 03/24/2025 03/24/2024 Medicare Annual Wellness Visit 03/24/2025 03/24/2024 Diabetes: Annual Urine Albumin-Creatinine Ratio (uACR) 06/21/2025 06/21/2024, 08/12/2023 Diabetes: Annual GFR (Glomerular Filtration Rate) 06/21/2025 06/21/2024, 03/17/2024, 11/11/2023, Additional history exists Hypertension/CHF/CAD Annual BMP Blood Test 06/21/2025 06/21/2024, 03/17/2024, 11/11/2023, Additional history exists Cholesterol Screening (Lipid Panel) 05/20/2028 05/20/2023 Colorectal Cancer Screening: Colonoscopy 06/10/2028 06/10/2018 Hepatitis C Screening Completed 03/13/2013 Zoster Vaccines Completed 03/08/2019, 11/12/2018 Pneumococcal Vaccine: 50+ Years Completed 06/07/2019, 03/10/2018, 04/17/2007 COVID-19 Vaccine Completed 01/27/2024, , 08/08/2021, Additional history exists Influenza Vaccine Completed 01/27/2024, , 12/25/2021, Additional history exists RSV Immunization Adult Patients Completed 03/10/2024 HIB Vaccines Aged Out No longer eligi ble based on patient's age to complete this topic HPV Vaccines Aged Out No longer eligi ble based on patient's age to complete this topic Hepatitis A Vaccines Aged Out No long er eligible based on patient's age to complete this topic Hepatitis B Vaccines Aged Out No long er eligible based on patient's age to complete this topic IPV Vaccines Aged Out No longer eligi ble based on patient's age to complete this topic MMR Vaccines Aged Out No longer eligi ble based on patient's age to complete this topic Meningococcal ACWY Vaccine Aged Out N o longer eligible based on patient's age to complete this topic Meningococcal B Vacine Aged Out No lo nger eligible based on patient's age to complete this topic RSV Immunization Patients Under 20 months Aged Out No longer eligible based on patient's age to complete this topic Varicella Vaccines Aged Out No longer eligible based on patient's age to complete this topic Procedures Procedure Name Priority Date/Time Associated Diagnosis Comments PROTHROMBIN TIME WITH INR 07/21/2024 PROTHROMBIN TIME WITH INR Routine 07/21/2024 PROTHROMBIN TIME WITH INR 07/14/2024 PROTHROMBIN TIME WITH INR Routine 07/14/2024 PROTHROMBIN TIME WITH INR 07/07/2024 PROTHROMBIN TIME WITH INR Routine 07/07/2024 PROTHROMBIN TIME WITH INR Routine 06/23/2024 PROTHROMBIN TIME WITH INR 06/23/2024 MICROALBUMIN CREATININE URINE RATIO Routine 06/21/2024 10:41 AM EST DM (diabetes mellitus), type 2 with neurological complications (CMS/HCC) Microalbuminuria HEMOGLOBIN A1C Routine 06/21/2024 10:41 AM EST DM (diabetes mellitus), type 2 with neurological complications (CMS/HCC) COMPREHENSIVE METABOLIC PANEL Routine 06/21/2024 10:41 AM EST DM (diabetes mellitus), type 2 with neurological complications (CMS/HCC) Essential hypertension, benign Pure hypercholesterolemia PROTHROMBIN TIME WITH INR 06/16/2024 PROTHROMBIN TIME WITH INR Routine 06/16/2024 VAS US DUPLEX LOWER EXT VENOUS INSUFFICIENCY BILATERAL Routine 06/14/2024 10:02 AM EST Post-thrombotic syndrome Leg swelling PROTHROMBIN TIME WITH INR 06/02/2024 PROTHROMBIN TIME WITH INR Routine 06/02/2024 PROTHROMBIN TIME WITH INR 05/26/2024 PROTHROMBIN TIME WITH INR Routine 05/26/2024 PROTHROMBIN TIME WITH INR 2024 PROTHROMBIN TIME WITH INR Routine 2024 PROTHROMBIN TIME WITH INR 05/12/2024 PROTHROMBIN TIME WITH INR Routine 05/12/2024 PROTHROMBIN TIME WITH INR 05/05/2024 PROTHROMBIN TIME WITH INR Routine 05/05/2024 PROTHROMBIN TIME WITH INR 04/28/2024 PROTHROMBIN TIME WITH INR Routine 04/28/2024 DIGOXIN LEVEL Routine 04/27/2024 8:16 AM EST Atrial fibrillation, unspecified type (CMS/HCC) DIABETES FOOT EXAM Routine 11/28/2023 LIPID PANEL Routine 05/20/2023 COLONOSCOPY Routine 06/10/2018 HEPATITIS C SCREENING Routine 03/13/2013 from Last 3 Months or Most Recently Relevant to Health Maintenance Results * Prothrombin time with INR (07/21/2024) Only the most recent of22 resultswithin the time period is included. Provider [facility] LAB BLOOD ORDERABLES Fin al Result * (ABNORMAL) Microalbumin creatinine urine ratio (06/21/2024 10:41 AM EST) Creatinine, Urine 43.0 mg/dL LAB CHEMISTRY METHOD 06/21/2024 1:29 PM [facility] Microalb, Ur 96.0(H) 0.0 - 29.0 mg/L LAB CHEMISTRY METHOD 06/21/2024 1:29 PM EST [facility] Microalb/Crea t Ratio 223(H) <30 mg/g creat LAB CHEMISTRY METHOD 06/21/2024 1:29 PM [facility] Urine Urine specimen obtained by clean catch procedure / Unknown Non-blood Collection / Unknown 06/21/2024 10:41 AM EST 06/21/2024 10:41 AM EST Julia ZIMMERMAN LAB URINE ORDERABLES Final Resul t Performing Organization Address [facility]/ZIP Co de Phone Number [facility] [address] [place] [address], [place] [phone] * (ABNORMAL) Hemoglobin A1c (06/21/2024 10:41 AM EST) Hemoglobin A1C 7.1(H) <6.5 % LAB CHEMISTRY METHOD 06/22/2024 1:52 PM [facility] Mean Bld Glu Estim. 157 mg/dL LAB CHEMISTRY METHOD 06/22/2024 1:52 PM [facility] Blood Venous blood specimen / Unknown Venipuncture / Unknown 06/21/2024 10:41 AM EST 06/21/2024 10:41 AM EST Julia ZIMMERMAN LAB BLOOD ORDERABLES Final Resul t Performing Organization Address [facility]/ZIP Co de Phone Number [facility] [address] [place] [address], [place] [phone] * Comprehensive metabolic panel (06/21/2024 10:41 AM EST) Pathologist [facility] Sodium 142 133 - 145 mmol/L LAB CHEMISTRY METHOD 06/21/2024 3:29 PM [facility] Potassium 4.8 3.5 - 5.5 mmol/L LAB CHEMISTRY METHOD 06/21/2024 3:29 PM [facility] Chloride 106 96 - 110 mmol/L LAB CHEMISTRY METHOD 06/21/2024 3:29 PM [facility] CO2 31 21 - 32 mmol/L LAB CHEMISTRY METHOD 06/21/2024 3:29 PM [facility] Anion Gap 5 3 - 11 LAB CHEMISTRY METHOD 06/21/2024 3:29 PM [facility] Glucose 90 70 - 100 mg/dL LAB CHEMISTRY METHOD 06/21/2024 3:29 PM [facility] BUN 17 5 - 25 mg/dL LAB CHEMISTRY METHOD 06/21/2024 3:29 PM [facility] Creatinine 0.89 0.70 - 1.30 mg/dL LAB CHEMISTRY METHOD 06/21/2024 3:29 PM [facility] eGFR 91 >=60 mL/min/1. 73m2 LAB CHEMISTRY METHOD 06/21/2024 3:29 PM [facility] Comment:Calculation based on the??Chronic Kidney Disease Epidemiology Collaboration (CKD-EPI) equation refit??without adjustment for race. BUN/Creatinine Ratio 19.1 LAB CHEMISTRY METHOD 06/21/2024 3:29 PM [facility] Calcium 9.5 8.5 - 10.5 mg/dL LAB CHEMISTRY METHOD 06/21/2024 3:29 PM [facility] AST (SGOT) 12 10 - 42 unit/L LAB CHEMISTRY METHOD 06/21/2024 3:29 PM [facility] ALT (SGPT) 21 10 - 60 unit/L LAB CHEMISTRY METHOD 06/21/2024 3:29 PM [facility] Alkaline Phosphatase 111 42 - 121 unit/L LAB CHEMISTRY METHOD 06/21/2024 3:29 PM [facility] Total Protein 7.5 6.0 - 8.0 g/dL LAB CHEMISTRY METHOD 06/21/2024 3:29 PM [facility] Albumin 3.5 3.2 - 5.0 g/dL LAB CHEMISTRY METHOD 06/21/2024 3:29 PM [facility] Total Bilirubin 1.2 0.0 - 1.4 mg/dL LAB CHEMISTRY METHOD 06/21/2024 3:29 PM [facility] Blood Venous blood specimen / Unknown Venipuncture / Unknown 06/21/2024 10:41 AM EST 06/21/2024 10:41 AM EST us Julia ZIMMERMAN LAB BLOOD ORDERABLES Final Resul t [facility] [address] [facility] [place] [address], * Vascular US duplex lower extremity venous insufficiency bilateral (06/14/2024 10:02 AM EST) Left fem mid reflux 4,456 ms CV VAS LAB Left GSK hermila 0.50 cm CV VAS LAB Left GSDC hermila 0.57 cm CV VAS LAB Left GSMT hermila 0.60 cm CV VAS LAB Left GSPC hermila 0.54 cm CV VAS LAB Left GSPT hermila 0.50 cm CV VAS LAB Left pop reflux 4,361 ms CV VAS LAB Left SFJ Diameter 0.71 cm CV VAS LAB Left SSMC hermila 0.45 cm CV VAS LAB Left SSPC hermila 0.46 cm CV VAS LAB Right GSK hermila 0.71 cm CV VAS LAB Right GSDC hermila 0.38 cm CV VAS LAB Right GSMT hermila 0.82 cm CV VAS LAB Right GSPC hermila 0.72 cm CV VAS LAB Right GSPT hermila 0.75 cm CV VAS LAB Right pop reflux 4,195 ms CV VAS LAB Right SFJ Diameter 0.74 cm CV VAS LAB Right SSMC hermila 0.46 cm CV VAS LAB Right SSPC hermila 0.40 cm CV VAS LAB Right com fem reflux 2,922 ms CV VAS LAB Right fem mid reflux 4,380 ms CV VAS LAB Right GSPT reflux 1,167 ms CV VAS LAB Right GSMT reflux 1,317 ms CV VAS LAB Right GSK reflux 1,872 ms CV VAS LAB Right GSDC reflux 550 ms CV VAS LAB Left com fem reflux 4,406 ms CV VAS LAB Left GSPT reflux 4,022 ms CV VAS LAB Left GSK reflux 456 ms CV VAS LAB Left GSDC reflux 1,278 ms CV VAS LAB Anatomical Region Laterality Modality Vascular, Abdomen Ultrasound Narrative 06/19/2024 5:58 PM EST RIGHT. 1. ??No evidence of deep vein thrombosis. 2. ??The saphenofemoral junction is competent. ??There is significant venous reflux in the common femoral, mid femoral and popliteal veins. 3. ??No superficial venous thrombosis. 4. ??No venous reflux noted in the small saphenous vein. 5. ??Venous reflux noted in the greater saphenous vein as described in the venous measurements. LEFT. 1. ??No evidence of deep vein thrombosis. 2. ??The saphenofemoral junction is competent. ??There is significant venous reflux in the common femoral, mid femoral and popliteal veins. 3. ??No superficial venous thrombosis. 4. ??No venous reflux noted in the small saphenous vein. 5. ??Venous reflux noted in the greater saphenous vein as described in the venous measurements. 6. ??Complex cystic structure in the medial left thigh measuring 1.7 cm x 0.5 cm x 1.1 cm without venous connection Right Lower Venous No evidence of deep vein thrombosis in the common femoral, deep femoral, proximal femoral, mid femoral, distal femoral, popliteal, greater saphenous, small saphenous, and posterior tibial veins of the right leg. The vessels showed compressibility. Interrogation showed phasic and spontaneous Doppler signals. Right peroneal veins are not well visualized. Right Venous Insufficiency Duplex The exam was performed with the patient in reverse Trendelenburg. Multiple nonrefluxing branches seen. Left Lower Venous No evidence of deep vein thrombosis in the common femoral, deep femoral, proximal femoral, mid femoral, greater saphenous, small saphenous, posterior tibial and peroneal veins of the left leg. The vessels showed compressibility. Interrogation showed phasic and spontaneous Doppler signals. Small echogenic nonocclussive chronic thrombus seen in the distal left femoral vein. Stranding echogenic nonocclussive chronic thrombus seen in the left popliteal vein. Left peroneal veins were not well visualized. Complex cystic structure, possible hematoma, at mid medial left thigh measuring 1.68 x 0.52 x 1.13cm. Does not connect to left greater saphenous vein. Left Venous Insufficiency Duplex The exam was performed with the patient in reverse trendelenburg. Traffic Checker Details A reid scale, color and doppler analysis ultrasound was performed. During the study longitudinal and transverse views were obtained. Pulsed wave doppler was performed. us Talia ZIMMERMAN CV VASCULAR PROCEDURES Final Result * Digoxin level (04/27/2024 8:16 AM EST) [facility] Digoxin Lvl 1.8 0.5 - 2.0 ng/mL LAB CHEMISTRY METHOD 04/27/2024 10:41 AM EST [facility] Blood Venous blood specimen / Unknown Venipuncture / Unknown 04/27/2024 8:16 AM EST 04/27/2024 8:16 AM EST Radha Hudson NP LAB BLOOD ORDERABLES Final Resu lt [facility] [address] [place] [address], [place] [phone] * Diabetes Foot Exam (11/28/2023) [facility] Diabetes: Annual Foot Exam Abstracted Historical Provider HEALTH MAINTENANCE Final Result * Lipid panel (05/20/2023) [facility] LDL/HDL Ratio 2 0 - 4 Triglycerides 59 0 - 150 mg/dL Cholesterol 94 0 - 200 mg/dL HDL 40 >=40 mg/dL LDL Cholesterol 43 0 - 100 mg/dL Blood Venous blood specimen / Unknown Result [facility] Provider LAB BLOOD ORDERABLES Tanika l Result * Colonoscopy (06/10/2018) [facility] Colonoscopy No interpreta tion,abstr acted Anatomical Region Laterality Modality Other Historical Provider HEALTH MAINTENANCE Final Result * Hepatitis C Screening (03/13/2013) [facility] Hepatitis C Screening Abstracted Historical Provider HEALTH MAINTENANCE Final Result from Last 3 Months or Most Recently Relevant to Health Maintenance Insurance [employer] MEDICARE Care Teams Ergonomic Specialist Relationship Specialty Start Date End Date Katie Gaytan MD [address] [place] [address] PCP - General 02/18/1999
--- OUTSIDE RECORDS SUMMARY | 2024-07-26 10:40 | XMS_ITS | Encounter Summary ---
Author Organization [facility] Address [address] [place] [address] Care Team Providers Care Laundry Worker Name Role Phone Katie Gaytan MD Primary Care Provider [phone] Yovany Giles MD Unavailable Nyla Grullon NP Unavailable Unavailable Reason for Visit * Reason Onset Date Comments Pre-op Needed 07/03/2021 Encounter Details Date Type Department Care Team Description 07/03/2021 Telephone Adult Medicine [address] [phone] Katie Gaytan MD [address] [place] [address] [phone] Pre-op Needed Social History Tobacco Use Types Packs/Day Years Used Date Smoking Tobacco: Never Smokeless Tobacco: Never Alcohol Use Standard Drinks/Week Comments No 0 (1 standard drink = 0.6 oz pur e alcohol) Sex Assigned at Date Recorded Not on file Job Start Date Occupation Industry Not on file Not on file Not on file COVID-19 Exposure Response Date Recorded In the last month, have you been in contact with someone who was confirmed or suspected to have Coronavirus / COVID-19? No / Unsure 07/03/2021 8:59 AM EDT documented as of this encounter Miscellaneous Notes * Telephone Encounter - Coty Montejo M.A. - 07/03/2021 11:12 AM EDT Patient did not leave any paerwork at the time of visit * Telephone Encounter - Molly Morrell - 07/03/2021 10:37 AM EDT Please fax any paperwork patient has dropped off to Pre Op at [phone]. Thank you for your help. * Telephone Encounter - Coty Montejo M.A. - 07/03/2021 9:47 AM EDT Please book pre-op appt for low risk dental procedure ok to double bookper Dr Gaytan. Procedure due forJuly/2021, Patient unsure of exact date. Best phone number to reach patient [phone]. documented in this encounter Plan of Treatment Not on file documented as of this encounter Visit Diagnoses Not on filedocumented in this encounter Care Teams Laundry Worker Relationship Specialty Start Date End Date Katie Gaytan MD [address] [place] [address] PCP - General 02/18/1999 Yovany Giles MD [address] [place] [address] Specialist Cardiology 08/12/22 Nyla Grullon NP [address] [place] [address] Cardiology 12/02/22 documented as of this encounter
--- OUTSIDE RECORDS SUMMARY | 2024-07-26 10:40 | XMS_ITS ---
Author Organization [facility] Address [address] [facility] [address] [place] [address] Care Team Providers Care Software Consultant Name Role Phone Lucila Wichosandra Primary Care Provider NAT Bai [phone] REASON FOR VISIT obtain vein study Encounters Encounter Location Date Provider Diagnosis [facility] [address] [facility] [address] [place] [address] 06/18/2024 NAT BROWN Plan Of Treatment Next Appt Details Provider Name:NAT BROWN, 08/20/2024 09:15:00 AM, [address] [facility], [facility] [address], [place], [address], Progress Notes * Randy TANDOB:1950 (74 yo M)Acc No.[id number]:06/18/2024 Patient:?Randy TAN :1950???Age:74 Y???Sex:Male Address:[address] [place] [address] * true * Date:? Generated for Printi ng/Tl/eTransmitting on:?07/26/2024 10:40 AM EDT
--- OUTSIDE RECORDS SUMMARY | 2024-07-26 10:40 | XMS_ITS | Encounter Summary ---
Author Organization [facility] Address [address] [place] [address] Care Team Providers Care Heavy Equipment Service Technician Name Role Phone Katie Gaytan MD Primary Care Provider Yovany Giles MD Unavailable Nyla Grullon NP Unavailable Unavailable Encounter Details Date Type Department Care Team Description 11/01/2023 CGM Report Medical Records [address] [place] [phone] Abstract, Provider Social History Tobacco Use Types Packs/Day [...] on filedocumented in this encounter Care Teams Heavy Equipment Service Technician Relationship Specialty Start Date End Date Katie Gaytan MD [address] [place] [address] [phone] PCP - General 02/18/1999 Yovany Giles MD [address] [place] [address] [phone] Specialist Cardiology 08/12/22 Nyla Grullon NP [address] [place] [address] Cardiology 12/02/22 documented as of this encounter
--- OUTSIDE RECORDS SUMMARY | 2024-07-26 10:40 | XMS_ITS | Encounter Summary ---
Author Organization [facility] Address [address] [place] [address] Care Team Providers Care Medical Billing Instructor Name Role Phone Katie Gaytan MD Primary Care Provider [phone] Yovany Giles MD Unavailable Nyla Grullon NP Unavailable Unavailable Reason for Visit * Reason Onset Date Comments Faxed Refill 10/09/2015 Lisinopril 40 mg Encounter Details Date Type Department Care Team Description 10/09/2015 Refill Adult Medicine [address] [phone] Katie Gaytan MD [address] [place] [address] [phone] Faxed Refill (Lisinopril 40 mg ) Social History Tobacco Use Types Packs/Day Years [...] encounter Miscellaneous Notes * Telephone Encounter - Bozena Portillo L.P.N. - 10/09/2015 3:59 PM EDT Component Value Date NA 144 02/14/2015 K 4.5 02/14/2015 CO2 23.8 02/14/2015 CL 103 02/14/2015 BUN 14 02/14/2015 CREAT 0.7 02/14/2015 GLU 132 02/14/2015 CA 9.1 02/14/2015 GFR > 60 02/14/2015 Last appt with Cristal Montoya Hypertension with hypertensive heart disease- he does not exhibit any heart failure symptoms .I explained goal of his blood pressure should be less than 130/80 given that he has diabetes and evidenceon echocardiogram. Will increase lisinopril to 40 mg daily, recommended obtaining a blood pressure cuff and checking his own blood pressures at home with recording. * Telephone Encounter - Teresa Real - 10/09/2015 3:17 PM EDT Patient would like script to be: E-PRESCRIBED/FAXED TO PHARMACY WHEN WAS THE PATIENT'S LAST APPOINTMENT IN ADULT MEDICINE? 04/10/15 WHEN WAS THE LAST TIME THE PATIENT SAW THEIR PCP? Same as above Does patient have an upcoming appointment? Yes 03/07/16 (THE MEDICATION REQUESTED IS ON THE MED LIST ABOVE) All of the medications requested were on the CURRENT MEDS list Did you check the Pharmacy information above?: YES Patient wants: 30 -day supply Is this a mail order prescription request ? NO Patients current insurance carrier is: Payor: RALPH / Plan: POS $0 DAPHNE [id number] / Product Type: POS Nid-lif-Eavnjef documented in this encounter Plan of Treatment Not on file documented as of this encounter Visit Diagnoses Not on filedocumented in this encounter Care Teams Medical Billing Instructor Relationship Specialty Start Date End Date Katie Gaytan MD [address] [place] [address] PCP - General 02/18/1999 Yovany Giles MD [address] [place] [address] Specialist Cardiology 08/12/22 Nyla Grullon NP [address] [place] [address] Cardiology 12/02/22 documented as of this encounter
--- OUTSIDE RECORDS SUMMARY | 2024-07-26 10:40 | XMS_ITS | Encounter Summary ---
Author Organization [facility] Address [address] [place] [address] Care Team Providers Care Hot Die Press Feeder Name Role Phone Katie Hernandez MD Primary Care Provider Yovany Giles MD Unavailable Nyla Grullon ANIMAL MAINTENANCE SUPERVISOR Unavailable Unavailable Reason for Visit * Reason Onset Date Comments Follow-up Appt Unavailable 10/06/2013 Encounter Details Date Type Department Care Team Description 10/06/2013 Telephone Adult Medicine [address] [phone] Katie Hernandez MD [address] [place] [address] [phone] Follow-up Appt Unavailable Social History Tobacco Use Types Packs/Day Years [...] encounter Miscellaneous Notes * Telephone Encounter - Carmelita Henson R.N. - 10/06/2013 4:04 PM EDT Pt booked for 10/15 at 10:[address] hernandez * Telephone Encounter - Milvia Burgos - 10/06/2013 11:47 AM EDT Follow up appointment not available. Please call patient to book-no open NON PUBLIC SLOTS. Appointment needed in about [address] Hernandez to check legs again and how antibiotics are working.Please call either home or mobile phone to schedule. documented in this encounter Plan of Treatment Not on file documented as of this encounter Visit Diagnoses Not on filedocumented in this encounter Care Teams Hot Die Press Feeder Relationship Specialty Start Date End Date Katie Hernandez MD [address] [place] [address] PCP - General 02/18/1999 Yovany Giles MD [address] [place] [address] Specialist Cardiology 08/12/22 Nyla Grullon NP [address] [place] [address] Cardiology 12/02/22 documented as of this encounter
--- OUTSIDE RECORDS SUMMARY | 2024-07-26 10:40 | XMS_ITS | Encounter Summary ---
Author Organization [facility] Address [address] [place] [address] Care Team Providers Care Change Management Consultant Name Role Phone Katie Gaytan MD Primary Care Provider [phone] Yovany Giles MD Unavailable Nyla Grullon NP Unavailable Unavailable Encounter Details Date Type Department Care Team Description 11/07/2022 Hospital Medical Records [address] [place] [address] [facility] Social History Tobacco Use Types Packs/Day Years [...] Name Priority Date/Time Associated Diagnosis Comments OUTSIDE PET Routine 11/07/2022 documented in this encounter Results * OUTSIDE PET (11/07/2022) Provider Default RADIOLOGY [facility] documented in this encounter Visit Diagnoses Not on filedocumented in this encounter Care Teams Change Management Consultant Relationship Specialty Start Date End Date Katie Gaytan MD [address] [place] [address] PCP - General 02/18/1999 Yovany Giles MD [address] [place] [address] Specialist Cardiology 08/12/22 Nyla Grullon NP [address] [place] [address] Cardiology 12/02/22 documented as of this encounter
--- OUTSIDE RECORDS SUMMARY | 2024-07-26 10:40 | XMS_ITS | Encounter Summary ---
Author Organization [facility] Address [address] [place] [address] Care Team Providers Care Gaming Worker Name Role Phone Katie Gaytan MD Primary Care Provider [phone] Yovany Giles MD Unavailable Nyla Grullon NP Unavailable Unavailable Encounter Details Date Type Department Care Team Description 11/07/2022 Telephone Cardio PVC POC [phone] [facility] [address] [place] [address] Fern Veliz, TAMAR [address] [place] [address] Social History Tobacco Use Types Packs/Day Years [...] Recorded In the last 10 days, have keegan magallon been in contact with someone who was confirmed or suspected to have Coronavirus/COVID-19? No / Unsure 10/24/2022 1:01 PM EDT documented as of this encounter Miscellaneous Notes * Telephone Encounter - Fern Veliz NP - 11/07/2022 4:33 PM EDT This gentleman had a cardiac PET/CT stress test today. It was positive for LAD ischemia. Results inMeditech. documented in this encounter Plan of Treatment Not on file documented as of this encounter Visit Diagnoses Not on filedocumented in this encounter Care Teams Gaming Worker Relationship Specialty Start Date End Date Katie Gaytan MD [address] [place] [address] PCP - General 02/18/1999 Yovany Giles MD [address] [place] [address] Specialist Cardiology 08/12/22 Nyla Grullon NP [address] [place] [address] Cardiology 12/02/22 documented as of this encounter
--- OUTSIDE RECORDS SUMMARY | 2024-07-26 10:41 | XMS_ITS | Encounter Summary ---
Author Organization [facility] Address [address] [place] [address] Care Team Providers Care Drill Sergeant Name Role Phone Katie Gaytan MD Primary Care Provider [phone] Yovany Giles MD Unavailable Nyla Grullon NP Unavailable Unavailable Reason for Visit * Reason Onset Date Comments Medical Records 02/24/2023 Encounter Details Date Type Department Care Team Description 02/24/2023 Telephone Cardio PVC POC [phone] [facility] [place] [facility] [address] [place] [address] Yovany Giles MD [address] [place] [address] [phone] Medical Records Social History Tobacco Use Types Packs/Day Years [...] suspected to have Coronavirus/COVID-19? No / Unsure 02/26/2023 9:50 AM EST documented as of this encounter Miscellaneous Notes * Telephone Encounter - Daisy Chase - 02/24/2023 10:47 AM EST Medical Records Request Randy went back to the ER at [facility] on 02/18/23. Can ypu please get his records prior to his 02/26/23 hospital follow up appointment with Nyla Grullon? Thanks. documented in this encounter Plan of Treatment Not on file documented as of this encounter Visit Diagnoses Not on filedocumented in this encounter Care Teams Drill Sergeant Relationship Specialty Start Date End Date Katie Gaytan MD [address] [place] [address] PCP - General 02/18/1999 Yovany Giles MD [address] [place] [address] Specialist Cardiology 08/12/22 Nyla Grullon NP [address] [place] [address] Cardiology 12/02/22 documented as of this encounter
--- OUTSIDE RECORDS SUMMARY | 2024-07-26 10:41 | XMS_ITS | Encounter Summary ---
Author Organization [facility] Address [address] [place] [address] Care Team Providers Care Assembly Machine Operator Name Role Phone Katie Gaytan MD Primary Care Provider [phone] Yovany Giles MD Unavailable Nyla Grullon NP Unavailable Unavailable Encounter Details Date Type Department Care Team Description 02/18/2023 Hospital Medical Records [address] [place] [address] [facility] Social History Tobacco Use Types Packs/Day Years [...] suspected to have Coronavirus/COVID-19? No / Unsure 02/03/2023 2:52 PM EDT documented as of this encounter Plan of Treatment Not on file documented as of this encounter Visit Diagnoses Not on filedocumented in this encounter Care Teams Assembly Machine Operator Relationship Specialty Start Date End Date Katie Gaytan MD [address] [place] [address] [phone] PCP - General 02/18/1999 Yovany Giles MD [address] [place] [address] Specialist Cardiology 08/12/22 Nyla Grullon NP [address] [place] [address] Cardiology 12/02/22 documented as of this encounter
--- OUTSIDE RECORDS SUMMARY | 2024-07-26 10:41 | XMS_ITS | Encounter Summary ---
Author Organization [facility] Address [address] [place] [address] Care Team Providers Care Radiotelegrapher Name Role Phone Katie Gaytan MD Primary Care Provider [phone] Yovany Giles MD Unavailable Nyla Grullon NP Unavailable Unavailable Encounter Details Date Type Department Care Team Description 05/20/2011 Eye Hauling Contractor Report Medical Records [address] [place] [address] Slade Ramirez MD Social History Tobacco Use Types Packs/Day [...] on filedocumented in this encounter Care Teams Radiotelegrapher Relationship Specialty Start Date End Date Katie Gaytan MD [address] [place] [address] [phone] PCP - General 02/18/1999 Yovany Giles MD [address] [place] [address] [phone] Specialist Cardiology 08/12/22 Nyla Grullon NP [address] [place] [address] Cardiology 12/02/22 documented as of this encounter
--- OUTSIDE RECORDS SUMMARY | 2024-07-26 10:41 | XMS_ITS | Encounter Summary ---
Author Organization [facility] Address [address] [place] [address] Care Team Providers Care Coal Hauler Operator Name Role Phone Katie Gaytan MD Primary Care Provider [phone] Yovany Giles MD Unavailable Nyla Grullon NP Unavailable Unavailable Reason for Visit * Reason Onset Date Comments Faxed Refill 10/28/2017 Encounter Details Date Type Department Care Team Description 10/28/2017 Refill Adult Medicine [address] [phone] Katie Gaytan MD [address] [place] [address] [phone] Faxed Refill Social History Tobacco Use Types Packs/Day Years [...] encounter Miscellaneous Notes * Telephone Encounter - Kristina Hannah M.A. - 10/28/2017 2:29 PM EDT Lab Results Component Value Date NA 146 03/19/2017 K 4.4 03/19/2017 CO2 27.8 03/19/2017 CL 102 03/19/2017 BUN 14 03/19/2017 CREAT 0.9 03/19/2017 GLU 141 03/19/2017 CA 9.2 03/19/2017 GFR > 60 03/19/2017 Pending ov with pcp 12/02/17 * Telephone Encounter - Lacy Flejose - 10/28/2017 12:06 PM EDT Patient would like script to be: E-PRESCRIBED/FAXED TO PHARMACY WHEN WAS THE PATIENT'S LAST APPOINTMENT IN ADULT MEDICINE? 08/13/17 WHEN WAS THE LAST TIME THE PATIENT SAW THEIR PCP? Same as above Does patient have an upcoming appointment? Yes 12/02/17 (THE MEDICATION REQUESTED IS ON THE MED [...] N/A Patients current insurance carrier is: Payor: [facility] / Plan: [facility] MEDICARE COMPLETE $20/$45 SLC / Product Type: PPO [id number] documented in this encounter Plan of Treatment Not on file documented as of this encounter Visit Diagnoses Not on filedocumented in this encounter Care Teams Coal Hauler Operator Relationship Specialty Start Date End Date Katie Gaytan MD [address] [place], [place] [phone] PCP - General 02/18/1999 Yovany Giles MD [address] [place] [address] Specialist Cardiology 08/12/22 Nyla Grullon NP [address] [place] [address] Cardiology 12/02/22 documented as of this encounter
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
--- OUTSIDE RECORDS SUMMARY | 2024-07-26 10:41 | XMS_ITS | Encounter Summary ---
Author Organization [facility] Address [address] [place] [address] Care Team Providers Care Turbine Assembler Name Role Phone Katie Gaytan MD Primary Care Provider [phone] Yovany Giles MD Unavailable Nyla Grullon NP Unavailable Unavailable Reason for Visit * Reason Onset Date Comments Faxed Refill 01/17/2015 Encounter Details Date Type Department Care Team Description 01/17/2015 Refill Adult Medicine [address] [phone] Katie Gaytan MD [address] [place] [address] [phone] Faxed Refill Social History Tobacco Use Types [...] encounter Miscellaneous Notes * Telephone Encounter - Dolly Verdugo M.A. - 01/18/2015 8:33 AM EDT Component Value Date INR 2.62 01/13/2015 Component Value Date WBC 5.6 03/11/2014 HGB 13.4 03/11/2014 HCT 44.1 03/11/2014 MCV 75.1 03/11/2014 PLTCT 286 03/11/2014 * Telephone Encounter - Lauren Galanaris - 01/17/2015 2:03 PM EDT Patient would like script to be: E-PRESCRIBED/FAXED TO PHARMACY WHEN WAS THE PATIENT'S LAST APPOINTMENT IN ADULT MEDICINE? 12/15/2014 WHEN WAS THE LAST TIME THE PATIENT SAW THEIR PCP? Same as above Does patient have an upcoming appointment? Yes 01/26/2015 (THE MEDICATION REQUESTED IS ON THE MED LIST ABOVE) All of the medications requested were on the CURRENT MEDS list Did you check the Pharmacy information above?: NO Patient wants: 30 -day supply Is this a mail order prescription request ? NO Patients current insurance carrier is: Payor: [employer] / Plan: POS $0 [facility] [id number] / Product Type: POS [id number] documented in this encounter Plan of Treatment Not on file documented as of this encounter Visit Diagnoses Not on filedocumented in this encounter Care Teams Turbine Assembler Relationship Specialty Start Date End Date Katie Gaytan MD [address] [place], [place] [phone] PCP - General 02/18/1999 Yovany Giles MD [address] [place] [address] Specialist Cardiology 08/12/22 Nyla Grullon NP [address] [place] [address] Cardiology 12/02/22 documented as of this encounter
--- OUTSIDE RECORDS SUMMARY | 2024-07-26 10:41 | XMS_ITS | Encounter Summary ---
Author Organization [facility] Address [address] [place] [address] Care Team Providers Care Snowboard Designer Name Role Phone Katie Gaytan MD Primary Care Provider Yovany Giles MD Unavailable Nyla Grullon NP Unavailable Unavailable Encounter Details Date Type Department Care Team Description 07/13/2020 Nip Wrapper Report Medical Records [address] [place] [address] Fern Tabares DPM Social History Tobacco Use [...] or suspected to have Coronavirus / COVID-19? Unable to assess 06/23/2020 4:43 PM EST documented as of this encounter Plan of Treatment Not on file documented as of this encounter Visit Diagnoses Not on filedocumented in this encounter Care Teams Snowboard Designer Relationship Specialty Start Date End Date Katie Gaytan MD [address] [place] [address] [phone] PCP - General 02/18/1999 Yovany Giles MD [address] [place] [address] [phone] Specialist Cardiology 08/12/22 Nyla Grullon NP [address] [place] [address], [place] [address] Cardiology 12/02/22 documented as of this encounter
--- OUTSIDE RECORDS SUMMARY | 2024-07-26 10:41 | XMS_ITS | Encounter Summary ---
Author Organization [facility] Address [address] [place] [address] Care Team Providers Care Cane Furniture Maker Name Role Phone Katie Gaytan MD Primary Care Provider [phone] Yovany Giles MD Unavailable Nyla Grullon DATA LIBRARIAN Unavailable Unavailable Encounter Details Date Type Department Care Team Description 11/26/2022 Orders Only Cardio PVC POC [address] [place] [address] Yovany Giles MD [address] [place] [address] Social History Tobacco Use Types Packs/Day Years [...] suspected to have Coronavirus/COVID-19? No / Unsure 11/29/2022 2:58 PM EDT documented as of this encounter Plan of Treatment Not on file documented as of this encounter Visit Diagnoses Not on filedocumented in this encounter Care Teams Cane Furniture Maker Relationship Specialty Start Date End Date Katie Gaytan MD [address] [place] [address] PCP - General 02/18/1999 Yovany Giles MD [address] [place] [address] Specialist Cardiology 08/12/22 Nyla Grullon NP [address] [place] [address] Cardiology 12/02/22 documented as of this encounter
--- OUTSIDE RECORDS SUMMARY | 2024-07-26 10:41 | XMS_ITS ---
Author Organization [facility] on Care Team Providers Care Clerical Grader Name Role Phone Marcela Crum Unavailable Danish Jefferson Unavailable Unavailable Meryl Calhoun Unavailable Unavailable Don Ayala Unavailable Unavailable Lorenz, Teresa Unavailable Unavailable Allergies and adverse reactions Code CodeSystem Substance Reaction Severity StartDate Concern Status Wool Unknown 04/02/2023 active Peanut-containin g Drug Products Unknown 04/02/2023 active Care Team Name Role Address Phone Organization Dates Marcela Joel Crum PCP [address] [place] [address], [address], [place] (Office): : [facility] 04/02/2023 - 04/17/2023 Danish Anderson Attending Physician [address] [place] [address], [address], [place] (Office): [facility] 04/02/2023 - 04/17/2023 Meryl Calhoun Attending Physician [address] [place] [address], [address], [place] (Office): [facility] 04/02/2023 - 04/17/2023 Don Ayala Attending Physician [address] [place], [address], [place] (Office): [facility] 04/02/2023 - 04/17/2023 Teresa Lorenz Attending Physician [address] [place], [address], [place] (Office): : [facility] 04/02/2023 - 04/17/2023 Immunizations Immunization Status Vaccine Details Vaccine Code CodeSystem Date Notes Influenza completed Influenza, split virus, trivalent, injectable, contains preservative 141 CVX created date: 04/02/2023 administer ed date: 12/27/2022 Verified in MIIS. Pneumococcal Conjugate Vaccine (PCV13) completed pneumococcal conjugate vaccine, 13 valent 133 CVX created date: 04/02/2023 administer ed date: 03/10/2018 Verified in MIIS. Pneumococcal Polysaccharide Vaccine (PPSV23) completed pneumococcal polysaccharide vaccine, 23 valent 33 CVX created date: 04/02/2023 administer ed date: 06/07/2019 Verified in MIIS. Pneumococcal Polysaccharide Vaccine (PPSV23) completed pneumococcal polysaccharide vaccine, 23 valent 33 CVX created date: 04/02/2023 administer ed date: 04/17/2007 Verified in MIIS. TDAP( Tetanus/Diptheria /Perutssis) completed tetanus toxoid, reduced diphtheria toxoid, and acellular pertussis vaccine, adsorbed 115 CVX created date: 04/02/2023 administer ed date: 03/04/2013 Verified in MIIS. SARS-COV-2 (COVID-19) completed SARS-COV-2 (COVID-19) vaccine, mRNA, spike protein, LNP, preservative free, 30 mcg/0.3mL dose Mfg: pfizer Step 2 of Multi-step with next step required 208 CVX created date: 04/02/2023 administer ed date: 07/20/2020 Verified in MIIS. SARS-COV-2 (COVID-19) completed SARS-COV-2 (COVID-19) vaccine, mRNA, spike protein, LNP, preservative free, 30 mcg/0.3mL dose Mfg: Examify Step 1 of Multi-step with next step required 208 CVX created date: 04/02/2023 administer ed date: 06/29/2020 Verified in MIIS. Shingrix completed zoster vaccine recombinant 187 CVX created date: 04/02/2023 administer ed date: 03/08/2019 Verified in MIIS. Shingrix completed zoster vaccine recombinant 187 CVX created date: 04/02/2023 administer ed date: 11/12/2018 Verified in MIIS. Prevnar 20 Pneumococcal conjugate (PCV20) cancelled Pneumococcal conjugate vaccine 20-valent (PCV20), polysaccharide [id number] conjugate, adjuvant, preservative free 216 CVX created date: 04/11/2023 consent date: 04/11/2023 Educated by Ivette Naranjo RN on 04/11/2023 SARS-COV-2 (COVID-19 BOOSTER) completed SARS-COV-2 (COVID-19) vaccine, mRNA, spike protein, LNP, preservative free, 50 mcg/0.5 mL dose Mfg: Moderna Spikevax 312 CVX created date: 04/02/2023 administer ed date: 01/10/2023 Verified in MIIS. SARS-COV-2 (COVID-19 BOOSTER) completed SARS-COV-2 (COVID-19) vaccine, mRNA, spike protein, LNP, bivalent, preservative free, 50 mcg/0.5 mL or 25 mcg/0.25 mL dose Mfg: Moderna Bivalent Booster 229 CVX created date: 04/02/2023 administer ed date: 12/25/2021 Verified in MIIS. SARS-COV-2 (COVID-19 BOOSTER) completed SARS-COV-2 (COVID-19) vaccine, mRNA, spike protein, LNP, preservative free, 30 mcg/0.3mL dose Mfg: Examify Booster #2 208 CVX created date: 04/02/2023 administer ed date: 08/08/2021 Verified in MIIS. SARS-COV-2 (COVID-19 BOOSTER) completed SARS-COV-2 (COVID-19) vaccine, mRNA, spike protein, LNP, preservative free, 30 mcg/0.3mL dose Mfg: Examify Booster #1 208 CVX created date: 04/02/2023 administer ed date: 01/20/2021 Verified in MIIS. RSV, bivalent, protein subunit RSVpreF, diluent rec new Respiratory syncytial virus (RSV), vaccine, bivalent, protein subunit RSV prefusion F, diluent reconstituted, 0.5 mL, preservative free 305 CVX created date: 04/11/2023 consent date: 04/11/2023 Educated by Ivette Naranjo RN on 04/11/2023 Mental Status Section Date Assessment Total Score Description 04/17/2023 BIMS 15 cognitively int act CAM 0 No delirium ind icated 04/08/2023 BIMS 15 cognitively int act CAM 0 No delirium ind icated Problems Problem # Description Date of onset Resolved Date Code CodeSystem Concern Status 1 ACUTE KIDNEY FAILURE, UNSPECIFIED 04/02/[address] active 2 ATHEROSCLEROTIC HEART DISEASE OF [place] CORONARY ARTERY WITHOUT ANGINA PECTORIS 04/02/[address] active 3 BENIGN PROSTATIC HYPERPLASIA WITH LOWER URINARY TRACT SYMPTOMS 04/02/[address] active 4 CHRONIC EMBOLISM AND THROMBOSIS OF UNSPECIFIED DEEP VEINS OF RIGHT LOWER EXTREMITY 04/02/[address] active 5 CHRONIC KIDNEY DISEASE, UNSPECIFIED 04/02/[address] active 6 HEART FAILURE, UNSPECIFIED 04/02/[address] active 7 OBSTRUCTIVE AND REFLUX UROPATHY, UNSPECIFIED 04/02/[address] active 8 PERIPHERAL VASCULAR DISEASE, UNSPECIFIED 04/02/[address] active 9 RETENTION OF URINE, UNSPECIFIED 04/02/[address] active 10 SEPSIS, UNSPECIFIED ORGANISM 04/02/[address] active 11 TYPE 2 DIABETES MELLITUS WITH DIABETIC NEPHROPATHY 04/02/[address] active 12 UNSPECIFIED ATRIAL FIBRILLATION 04/02/[address] active 13 UNSPECIFIED HYDRONEPHROSIS 04/02/[address] active 14 URINARY TRACT INFECTION, SITE NOT SPECIFIED 04/02/[address] active Reason for Referral No Reasons for Referral Entered Social History Social History Observation Description Start Date End Date Code Code System Current Smoking Status Tobacco smoking consumption unknown 861918274 SNOMED CT Sex Assigned At Male 1950 05628-9 [facility] Vital Signs Code Code System Vitals Name Values and Units Timing Information 93846-0 [facility] Pain Level Value=0.0 04/17/2023 8462-4 [facility] Blood Pressure-Diastolic Value=76 Un its=mmHg 04/17/2023 8480-6 [facility] Blood Pressure-Systolic Emudu=260 Un its=mmHg 04/17/2023 8867-4 [facility] Heart rate Value=96.0 Units=/min 9279-1 [facility] Respiratory Rate Value=16.0 Units=/m in 04/16/2023 8310-5 [facility] Body Temperature Value=97.5 Units=?? F 04/16/2023 44991-3 [facility] O2 % BldC Oximetry Value=97.0 Units= % 04/16/2023 49327-7 [facility] Weight Zksxl=423.0 Units=Lbs 2339-0 [facility] Blood Sugar Qfcxn=909.0 Units=mg/dL 04/16/2023 8302-2 [facility] Height Value=76.0 Units=Inches 04/07/2023
--- OUTSIDE RECORDS SUMMARY | 2024-07-26 10:41 | XMS_ITS | Encounter Summary ---
Author Organization [facility] Address [address] [place] [address] Care Team Providers Care Senior Integration Developer Name Role Phone Katie Gaytan MD Primary Care Provider [phone] Yovany Giles MD Unavailable Nyla Grullon NP Unavailable Unavailable Encounter Details Date Type Department Care Team Description 09/14/2020 Collection Technician Report Medical Records [address] [place] [address] Fern Tabares DPM Social History Tobacco Use [...] on filedocumented in this encounter Care Teams Senior Integration Developer Relationship Specialty Start Date End Date Katie Gaytan MD [address] [place] [address] [phone] PCP - General 02/18/1999 Yovany Giles MD [address] [place] [address] [phone] Specialist Cardiology 08/12/22 Nyla Grullon NP [address] [place] [address] Cardiology 12/02/22 documented as of this encounter
--- OUTSIDE RECORDS SUMMARY | 2024-07-26 10:41 | XMS_ITS | Encounter Summary ---
Author Organization [facility] [place] [address] Care Team Providers Care Dogger Name Role Phone Katie Gaytan MD Primary Care Provider [phone] Encounter Details Date Type Department Care Team (Latest Contact Info) Description 07/21/2024 Anticoagulation - Warfarin Visit Coumadin [address] [address] Shonna White, [employer] CONSULTANT Personal history of DVT (deep vein thrombosis) (Primary Dx) Social History Tobacco Use Types [...] care for your loved ones. For example, maternal child nurse or elderly care for an older adult? [...] not to disclose 2023 1:08 PM EST documented as of this encounter Plan of Treatment Upcoming Encounters Date Type Department Care Team (Late st Contact Info) Description 08/23/2024 9:30 AM EDT Office Visit Vascular Surgery - [place] [address] [place] [address] Talia Olmedo PA [address] [facility] [address] [place] [address] 10/20/2024 10:10 AM EDT Office Visit [facility] Cardiology [facility] [address] [place] [address] Radha Hudson NP [address] [place] [address] 12/09/2024 10:00 AM EDT Ancillary Procedure [facility] [address] [place] [address] 12/24/2024 9:30 AM EDT Office Visit [facility] [place] [address] [phone] Katie Gaytan MD [address] [place], [place] 03/30/2025 9:20 AM EST Office Visit Endocrinology [address] [phone] Julia Oconnell PA [address] [place], [place] documented as of this encounter Procedures Procedure Name Priority Date/Time Associated Diagnosis Comments PROTHROMBIN TIME WITH INR Routine 07/21/2024 documented in this encounter Results * Prothrombin time with INR (07/21/2024) INR 2.8 Comment:remote Prothrombin Time POC Blood Venous blood specimen / Unknown 07/21/2024 us Katie Gaytan MD LAB BLOOD ORDERABLES Final Resul t documented in this encounter Visit Diagnoses Diagnosis Personal history of DVT (deep vein thrombosis)- Primary Personal history of venous thrombosis and embolism documented in this encounter Additional Health Concerns Assessment Noted Time PHQ-9 Depression Total Score: 0 03/22/20 10:44 AM EST A fall risk assessment has been complete d for the patient 03/20/2024 12:04 PM EST documented as of this encounter Care Teams Dogger Relationship Specialty Start Date End Date Katie Gaytan MD [address] [place] [address] PCP - General 02/18/1999 documented as of this encounter
--- OUTSIDE RECORDS SUMMARY | 2024-07-26 10:41 | XMS_ITS | Encounter Summary ---
Author Organization [facility] Address [address] [place] [address] Care Team Providers Care Telegraph Office Route Aide Name Role Phone Katie Gaytan MD Primary Care Provider [phone] Yovany Giles MD Unavailable Nyla Grullon NP Unavailable Unavailable Reason for Visit * Reason Onset Date Comments Call From Office 11/26/2022 Encounter Details Date Type Department Care Team Description 11/26/2022 Telephone Adult Medicine [address] [phone] Katie Gaytan MD [address] [place] [address] [phone] Call From Office Social History Tobacco Use Types Packs/Day Years [...] encounter Miscellaneous Notes * Telephone Encounter - Dewayne Parisi - 11/26/2022 11:42 AM EDT Caller requesting call back from provider: Is the caller the patient? NO If caller is not the patient, what is the callers name? Dr. Giles Callers relationship to patient? Cardiology If person calling is not the patient themselves, is there a verbal release in FYI or permanent comments for this person: NO Reason for call back: Dr. Parks would like to speak to Dr. Gaytan with some concerns about patient. URGENT ISSUE Caller offered to speak with the nurse for assistance: YES Response: Patient unwilling to offer reason for requesting provider to call them documented in this encounter Plan of Treatment Not on file documented as of this encounter Visit Diagnoses Not on filedocumented in this encounter Care Teams Telegraph Office Route Aide Relationship Specialty Start Date End Date Katie Gaytan MD [address] [place] [address] PCP - General 02/18/1999 Yovany Giles MD [address] [place] [address] Specialist Cardiology 08/12/22 Nyla Grullon NP [address] [place] [address] Cardiology 12/02/22 documented as of this encounter
--- OUTSIDE RECORDS SUMMARY | 2024-07-26 10:41 | XMS_ITS | Encounter Summary ---
Author Organization [facility] Address [address] [place] [address] Care Team Providers Care Polisher Hand Name Role Phone Katie Gaytan MD Primary Care Provider [phone] Yovany Giles MD Unavailable Nyla Grullon NP Unavailable Unavailable Encounter Details Date Type Department Care Team Description 12/10/2011 Automatic Maintainer Report Medical Records [address] [place] [address] An Aranda MD Social History Tobacco Use [...] on filedocumented in this encounter Care Teams Polisher Hand Relationship Specialty Start Date End Date Katie Gaytan MD [address] [place] [address] [phone] PCP - General 02/18/1999 Yovany Giles MD [address] [place] [address] [phone] Specialist Cardiology 08/12/22 Nyla Grullon NP [address] [place] [address] Cardiology 12/02/22 documented as of this encounter
--- OUTSIDE RECORDS SUMMARY | 2024-07-26 10:41 | XMS_ITS | Encounter Summary ---
Author Organization [facility] [place] [address] Care Team Providers Care Inspector Metal Can Name Role Phone Katie Gaytan MD Primary Care Provider [phone] Encounter Details Date Type Department Care Team (Latest Contact Info) Description 03/02/2024 Anticoagulation - Warfarin Visit [facility] [address] [address] Shonna White LPN Personal history of DVT (deep vein thrombosis) (Primary Dx) Social History Tobacco Use Types Packs/Day Years Used Date Smoking Tobacco: Never Smokeless Tobacco: Never Alcohol Use Standard Drinks/Week Comments Yes 0 (1 standard drink = 0.6 oz pur e alcohol) Sex and Gender Information Value Date Recorded Sex Assigned at Male 03/15/2024 1:08 PM EST Legal Sex Male 6:33 AM EST Gender Identity Male 03/15/2024 1:08 PM EST Sexual Orientation Choose not to disclose 2023 1:08 PM EST documented as of this encounter Progress Notes * Shonna White LPN - 03/02/2024 10:21 AM EST Lovenox Documentation documented in this encounter Plan of Treatment Upcoming Encounters Date Type Department Care Team (Late st Contact Info) Description 08/23/2024 9:30 AM EDT Office Visit Vascular Surgery - [place] [address] [place] [address] Talia Olmdeo PA [address] [place] [address] 10/20/2024 10:10 AM EDT Office Visit [facility] - [facility] [address] [place] [address] Radha Hudson NP [address] [place] [address] 12/09/2024 10:00 AM EDT Ancillary Procedure [facility] - [facility] [address] [facility] [address] [place] [address] 12/24/2024 9:30 AM EDT Office Visit Adult Medicine [address] [phone] Katie Gaytan MD [address] [place] [address] 03/30/2025 9:20 AM EST Office Visit Endocrinology [address] [phone] Julia Oconnell PA [address] [place], [place] documented as of this encounter Visit Diagnoses Diagnosis Personal history of DVT (deep vein thrombosis)- Primary Personal history of venous thrombosis and embolism documented in this encounter Care Teams Inspector Metal Can Relationship Specialty Start Date End Date Katie Gaytan MD [address] [place] [address] PCP - General 02/18/1999 documented as of this encounter
--- OUTSIDE RECORDS SUMMARY | 2024-07-26 10:41 | XMS_ITS | Encounter Summary ---
Author Organization [facility] Address [address] [place] [address] Care Team Providers Care Concrete Pouring Supervisor Name Role Phone Katie Gaytan MD Primary Care Provider [phone] Yovany Giles MD Unavailable Nlya Grullon CAR REPAIR SUPERVISOR Unavailable Unavailable Encounter Details Date Type Department Care Team Description 02/23/2015 Telephone Adult Medicine [address] [phone] Ktaie Gaytan MD [address] [place] [address] [phone] Social History Tobacco Use Types Packs/Day Years [...] encounter Miscellaneous Notes * Telephone Encounter - Katie Gaytan MD - 02/23/2015 10:07 AM EST Thanks to keep me updated. There is no evidence of congestive heart failure, negative BNP, good ejection fraction. On the other hand patient reported palpitation, we cannot rule out rate related issue. Patient is on warfarin, PE hopefully is less likely. Do want to have the patient see cardiology as well? documented in this encounter Plan of Treatment Not on file documented as of this encounter Visit Diagnoses Not on filedocumented in this encounter Care Teams Concrete Pouring Supervisor Relationship Specialty Start Date End Date Katie Gaytan MD [address] [place] [address] PCP - General 02/18/1999 Yovany Giles MD [address] [place] [address] Specialist Cardiology 08/12/22 Nyla Grullon NP [address] [place] [address] Cardiology 12/02/22 documented as of this encounter
--- OUTSIDE RECORDS SUMMARY | 2024-07-26 10:41 | XMS_ITS | Encounter Summary ---
Author Organization [facility] Address [address] [place] [address] Care Team Providers Care Fleet Maintenance Manager Name Role Phone Katie Gaytan MD Primary Care Provider [phone] Yovany Giles MD Unavailable Nyla Grullon NP Unavailable Unavailable Reason for Visit * Reason Onset Date Comments Medication 12/12/2014 Encounter Details Date Type Department Care Team Description 12/12/2014 Telephone Adult Medicine [address] [phone] Katie Gaytan MD [address] [place] [address] [phone] Medication Social History Tobacco Use Types Packs/Day Years [...] Telephone Encounter - Carmelita Henson R.N. - 12/12/2014 12:10 PM EDT Will ask dr Gaytan to advise, I have called clinic and let them know pt will be on Levaquin * Telephone Encounter - Katiana Luna - 12/12/2014 11:55 AM EDT Who is calling? A pharmacist: Pharmacy: [facility] Pharmacist Name: [facility] Phone # [phone] Name of the medication LEVOQUIN AND WARFRAN What is the specific problem or interaction? INTERACTION WITH THESE MEDICATIONS, STILL OK TO FILL? PLEASE CALL PHARMACY If the patient is having a problem with taking the med - how long has the problem been going on? N/A documented in this encounter Plan of Treatment Not on file documented as of this encounter Visit Diagnoses Not on filedocumented in this encounter Care Teams Fleet Maintenance Manager Relationship Specialty Start Date End Date Katie Gaytan MD [address] [place] [address] PCP - General 02/18/1999 Yovany Giles MD [address] [place] [address] Specialist Cardiology 08/12/22 Nyla Grullon NP [address] [place] [address] Cardiology 12/02/22 documented as of this encounter
--- OUTSIDE RECORDS SUMMARY | 2024-07-26 10:41 | XMS_ITS | Encounter Summary ---
Author Organization [facility] Address [address] [place] [address] Care Team Providers Care Transmission Tester Name Role Phone Katie Gaytan MD Primary Care Provider [phone] Yovany Giles MD Unavailable Nyla Grullon MANAGER WEALTH MANAGEMENT Unavailable Unavailable Reason for Visit * Reason Onset Date Comments Leg Pain 06/30/2017 calf hx of DVT Encounter Details Date Type Department Care Team Description 06/30/2017 Telephone Adult Medicine [address] [phone] Katie Gaytan MD [address] [place] [address] [phone] Leg Pain (calf hx of DVT) Social History Tobacco Use Types Packs/Day Years [...] Telephone Encounter - Carmelita Henson R.N. - 06/30/2017 2:53 PM EDT Pt has lk day appointment , needed him to come in sooner It is too late now for pt to get us , if he comes in I left a message for the patient to return my call. * Telephone Encounter - Renee Taylor - 06/30/2017 2:11 PM EDT Please call patient at [phone] * Telephone Encounter - Renee Taylor - 06/30/2017 2:10 PM EDT Patient returning call * Telephone Encounter - Carmelita Henson R.N. - 06/30/2017 11:42 AM EDT I left a message for the patient to return my call. * Telephone Encounter - Teresa Iverson - 06/30/2017 10:51 AM EDT Symptoms patient is presenting: calf pain. History of DVT. Scheduled by BSR late in the day. Pleasecall to triage to come in earlier If pain or injury related was it due to an accident at work or from a motor vehicle accident? NO If yes, gather 3rd green party insurance information Date of accident/Injury: How long has patient had these symptoms?: two days PCP: Katie Gaytan Payor: [employer] / Plan: AARP MEDICARE COMPLETE $20/$45 [facility] / Product Type: PPO [id number] documented in this encounter Plan of Treatment Not on file documented as of this encounter Visit Diagnoses Not on filedocumented in this encounter Care Teams Transmission Tester Relationship Specialty Start Date End Date Katie Gaytan MD [address] [place] [phone] PCP - General 02/18/1999 Yovany Giles MD [address] [place] [address] 47[address] Specialist Cardiology 08/12/22 Nyla Grullon NP [address] [place] [address] Cardiology 12/02/22 documented as of this encounter
--- OUTSIDE RECORDS SUMMARY | 2024-07-26 10:41 | XMS_ITS | Encounter Summary ---
Author Organization [facility] Address [address] [place] [address] Care Team Providers Care Patent Leather Sorter Name Role Phone Katie Gaytan MD Primary Care Provider [phone] Yovany Giles MD Unavailable Nyla Grullon NP Unavailable Unavailable Encounter Details Date Type Department Care Team Description 07/26/2019 Telephone Adult Medicine [address] Social History Tobacco Use Types Packs/Day Years [...] on filedocumented in this encounter Care Teams Patent Leather Sorter Relationship Specialty Start Date End Date Katie Gaytan MD [address] [place] [address] [phone] PCP - General 02/18/1999 Yovany Giles MD [address] [place] [address] [phone] Specialist Cardiology 08/12/22 Nyla Grullon NP [address] [place] [address] Cardiology 12/02/22 documented as of this encounter
--- OUTSIDE RECORDS SUMMARY | 2024-07-26 10:41 | XMS_ITS | Encounter Summary ---
Author Organization [facility] Address [address] [place] [address] Care Team Providers Care Generation Technician Name Role Phone Katie Hernandez MD Primary Care Provider [phone] Yovany Giles MD Unavailable Nyla Grullon NP Unavailable Unavailable Reason for Visit * Reason Onset Date Comments APPOINTMENT 12/12/2014 dr hernandez wants to o verbook this patient on 12/15/14. Encounter Details Date Type Department Care Team Description 12/12/2014 Telephone Adult Medicine [address] [phone] Katie Hernandez MD [address] [place] [address] [phone] APPOINTMENT (dr hernandez wants to overbook this patient on 12/15/14.) Social History Tobacco Use Types Packs/Day Years [...] encounter Miscellaneous Notes * Telephone Encounter - Shiv Talley - 12/12/2014 11:[address] Hernandez wants Randy to be seen by him on 12/15/14. I have nothing open. Patient states that Dr. Hernandez said to double book. He is open for any time. documented in this encounter Plan of Treatment Not on file documented as of this encounter Visit Diagnoses Not on filedocumented in this encounter Care Teams Generation Technician Relationship Specialty Start Date End Date Katie Hernandez MD [address] [place] [address] PCP - General 02/18/1999 Yovany Giles MD [address] [place] [address] 69002 Specialist Cardiology 08/12/22 Nyla Grullon NP [address] [place] [address] 8[address] Cardiology 12/02/22 documented as of this encounter
--- OUTSIDE RECORDS SUMMARY | 2024-07-26 10:41 | XMS_ITS | Encounter Summary ---
Author Organization [facility] Address [address] [place] [address] Care Team Providers Care Boat Carpenter Mechanic Name Role Phone Katie Gaytan MD Primary Care Provider [phone] Yovany Giles MD Unavailable Nyla Grullon NP Unavailable Unavailable Reason for Visit * Reason Comments E-prescribe Rx Request Encounter Details Date Type Department Care Team Description 06/19/2020 Refill Adult Medicine [address] [phone] Katie Gaytan MD [address] [place] [address] [phone] E-prescribe Rx Request Social History Tobacco Use [...] Telephone Encounter - Kristina Hannah M.A. - 06/19/2020 1:30 PM EST Lab Results Component Value Date NA 142 03/12/2019 K 4.0 03/12/2019 CO2 31 03/12/2019 CL 106 03/12/2019 BUN 11 03/12/2019 CREAT 0.80 03/12/2019 GLU 124 03/12/2019 CA 8.6 03/12/2019 GFR > 60 03/12/2019 Pending a[ppt with pcp * Telephone Encounter - Kamilah George - 06/19/2020 12:42 PM EST Patient would like script to be: E-PRESCRIBED/FAXED TO PHARMACY WHEN WAS THE PATIENT'S LAST APPOINTMENT IN ADULT MEDICINE? 02/15/20 WHEN WAS THE LAST TIME THE PATIENT SAW THEIR PCP? Same as above Does patient have an upcoming appointment? Yes 06/26/20 (THE MEDICATION REQUESTED IS ON THE MED [...] N/A Patients current insurance carrier is: Payor: [facility] / Plan: AARP MEDICARE COMPLETE $15/$45 [facility] [id number] / Product Type: PPO [id number] documented in this encounter Plan of Treatment Not on file documented as of this encounter Visit Diagnoses Not on filedocumented in this encounter Care Teams Boat Carpenter Mechanic Relationship Specialty Start Date End Date Katie Gaytan MD [address] [place] [address] PCP - General 02/18/1999 Yovany Giles MD [address] [place] [address] 56306 Specialist Cardiology 08/12/22 Nyla Grullon NP [address] [place] [address] Cardiology 12/02/22 documented as of this encounter
--- OUTSIDE RECORDS SUMMARY | 2024-07-26 10:41 | XMS_ITS | Encounter Summary ---
Author Organization [facility] Address [address] [place] [address] Care Team Providers Care Distribution Lineman Name Role Phone Katie Gaytan MD Primary Care Provider [phone] Yovany Giles MD Unavailable Nyla Grullon NP Unavailable Unavailable Reason for Visit * Reason Onset Date Comments Pre-visit Diabetes Lab Adult Medicine 02/03/202002/14 Encounter Details Date Type Department Care Team Description 02/03/2020 Telephone Adult Medicine [address] [phone] Katie Gaytan MD [address] [place] [address] [phone] Pre-visit Diabetes Lab Adult Medicine (02/14) Social History Tobacco Use Types Packs/Day Years [...] encounter Miscellaneous Notes * Telephone Encounter - Sirisha Leggett - 02/03/2020 9:22 AM EDT Sent patient an email advising them to complete diabetic lab work at least three days prior to their upcoming appointment. documented in this encounter Plan of Treatment Not on file documented as of this encounter Visit Diagnoses Not on filedocumented in this encounter Care Teams Distribution Lineman Relationship Specialty Start Date End Date Katie Gaytan MD [address] [place] [address] PCP - General 02/18/1999 Yovany Giles MD [address] [place] [address] 08302 Specialist Cardiology 08/12/22 Nyla Grullon NP [address] [place] [address] Cardiology 12/02/22 documented as of this encounter
--- OUTSIDE RECORDS SUMMARY | 2024-07-26 10:41 | XMS_ITS | Encounter Summary ---
Author Organization [facility] Address [address] [place] [address] Care Team Providers Care Ophthalmic Nurse Name Role Phone Katie Gaytan MD Primary Care Provider [phone] Yovany Giles MD Unavailable Nyla Grullon NP Unavailable Unavailable Encounter Details Date Type Department Care Team Description 02/20/2023 Orders Only Cardio PVC POC [address] [facility] [address] [place] [address] Default, Provider Social History Tobacco Use Types [...] Name Priority Date/Time Associated Diagnosis Comments OUTSIDE EKG Routine 02/12/2023 OUTSIDE ECHO Routine 02/12/2023 documented in this encounter Results * OUTSIDE EKG (02/12/2023) Provider Default CARDIOLOGY * OUTSIDE ECHO (02/12/2023) Provider Default CARDIOLOGY documented in this encounter Visit Diagnoses Not on filedocumented in this encounter Care Teams Ophthalmic Nurse Relationship Specialty Start Date End Date Katie Gaytan MD [address] [place] [address] PCP - General 02/18/1999 Yovany Giles MD [address] [place] [address] 64765 Specialist Cardiology 08/12/22 Nyla Grullon NP [address] [place] [address] Cardiology 12/02/22 documented as of this encounter
== END 2024-07-26 09:53 | disposition home or self-care (01) ==
LOC: HO.HUSH 09:28
PROVIDERS: PCP Internal Medicine; Visit Provider Nurse Practitioner Family
DX: N13.9 Obstructive and reflux uropathy, unspecified (principal); R33.9 Retention of urine, unspecified
CPT/HCPCS: 99213; G2211

== ENCOUNTER → 2024-07-26 09:27 | Outpatient (BNVA) | payer MEDICARE, SELFPAY | PROVIDERS: PCP Internal Medicine; Visit Provider Nurse Practitioner Family | DX: R33.9 Retention of urine, unspecified (principal); N13.9 Obstructive and reflux uropathy, unspecified; Z79.899 Other long term (current) drug therapy | CPT/HCPCS: 51798; 81003; 99212 ==

== ENCOUNTER 2024-12-14 08:30 | Outpatient (RCR) | payer MEDICARE, SELFPAY | END 2025-01-19 16:55 | disposition home or self-care (01) | LOC: HO.WCC 08:30 | PROVIDERS: Visit Provider Surgery Surgical Oncology | DX: E11.622 Type 2 diabetes mellitus with other skin ulcer (principal); L97.222 Non-pressure chronic ulcer of left calf with fat layer exposed; L97.812 Non-pressure chronic ulcer of other part of right lower leg with fat layer exposed; I87.033 Postthrombotic syndrome with ulcer and inflammation of bilateral lower extremity; E11.51 Type 2 diabetes mellitus with diabetic peripheral angiopathy without gangrene; I89.0 Lymphedema, not elsewhere classified; I11.0 Hypertensive heart disease with heart failure; I50.22 Chronic systolic (congestive) heart failure; I48.20 Chronic atrial fibrillation, unspecified; Z79.4 Long term (current) use of insulin; Z79.84 Long term (current) use of oral hypoglycemic drugs; Z79.2 Long term (current) use of antibiotics | CPT/HCPCS: 11042; 11045; 29580; 29581; 97597; 99212; 99213 ==

== ENCOUNTER 2024-12-14 09:58 | Inpatient (IN) | payer MEDICARE, SELFPAY ==
--- OUTSIDE RECORDS SUMMARY | 2024-12-09 10:00 | XMS_ITS | Encounter Summary ---
Author Organization [facility] Address [address] [place] [address] Care Team Providers Care Cryptologic Technician Technical Name Role Phone Katie Gaytan MD Primary Care Provider [phone] Reason for Visit * Imaging (Routine) - Closed Specialty Diagnoses / Procedures Referred By Contac t Referred To Contact Diagnoses PAD (peripheral artery disease) ([facility] V24) Ectasia of artery ([facility] V24) Procedures Vascular US duplex lower extremity arteries bilateral with NYDIA Talia Olmedo PA [address] [place] [address] Phone: tel: fax: [facility] Referral ID Status Reason Start Date Expiration Date Visits Re quested Visits Authorized [id number] Closed 08/23/2024 08/23/2025 1 1 Encounter Details Date Type Department Care Team (Latest Contact Info) Description 12/09/2024 10:00 AM EDT Ancillary Procedure [facility] - [address] [place] [address] PAD (peripheral artery disease) ([facility] V24); Ectasia of artery ([facility] V24) Social History Tobacco Use Types Packs/Day Years [...] care for your loved ones. For example, director maternal child or elderly care for an older adult? [...] Care Team (Late st Contact Info) Description 12/24/2024 9:30 AM EDT Office Visit Adult Medicine [facility] [address] [place] [address] Katie Gaytan MD [address] [place] [address] 12/31/2024 9:30 AM EDT Office Visit Vascular Surgery - [place] [address] [facility] [address] [place] [address] Kimmie Denny PA [address] [facility] [address] [place] [address] 01/21/2025 8:40 AM EDT Office Visit [facility] - [facility] [address] [facility] [address] [place] [address] Sarah Lee NP [address] [place] [address] 03/30/2025 9:20 AM EST Office Visit Endocrinology [address] [address] Julia Oconnell PA [address] [place] [address] documented as of this encounter Procedures Procedure Name Priority Date/Time Associated Diagnosis Comments VAS US DUPLEX LOWER EXT ARTERIES BILAT WITH NYDIA Routine 12/09/2024 11:32 AM EDT PAD (peripheral artery disease) (CMS/HCC V24) Ectasia of artery (CMS/HCC V24) documented in this encounter Results * Vascular US duplex lower extremity arteries bilateral with NYDIA (12/09/2024 11:32 AM EDT) Left Dist External Iliac PSV 69 cm/s CV VAS LAB Left Prox External Iliac PSV 95 cm/s CV VAS LAB Left AT dist sys PSV 73 cm/s CV VAS LAB Left AT mid sys PSV 69 cm/s CV VAS LAB Left AT prox sys PSV 64 cm/s CV VAS LAB Left UNIT EDUCATOR prox sys PSV 70 cm/s CV VAS LAB Left mid peroneal sys PSV 40 cm/s CV VAS LAB Left popliteal dist sys PSV 50 cm/s CV VAS LAB Left popliteal prox sys PSV 44 cm/s CV VAS LAB Left PT dist sys PSV 68 cm/s CV VAS LAB Left PT mid sys PSV 65 cm/s CV VAS LAB Left PT prox sys PSV 64 cm/s CV VAS LAB Left profunda sys PSV 44 cm/s CV VAS LAB Left super femoral dist sys PSV 63 cm/s CV VAS LAB Left super femoral mid sys PSV 76 cm/s CV VAS LAB Left super femoral prox sys PSV 75 cm/s CV VAS LAB Right Dist External Iliac PSV 63 cm/s CV VAS LAB Right Prox External Iliac PSV 111 cm/s CV VAS LAB Right AT dist sys PSV 39 cm/s CV VAS LAB Right AT mid sys PSV 55 cm/s CV VAS LAB Right AT prox sys PSV 51 cm/s CV VAS LAB Right UNIT EDUCATOR prox sys PSV 77 cm/s CV VAS LAB Right mid peroneal sys PSV 28 cm/s CV VAS LAB Right popliteal dist sys PSV 44 cm/s CV VAS LAB Right popliteal prox sys PSV 50 cm/s CV VAS LAB Right PT dist sys PSV 61 cm/s CV VAS LAB Right PT mid sys PSV 82 cm/s CV VAS LAB Right PT prox sys PSV 49 cm/s CV VAS LAB Right super femoral dist sys PSV 65 cm/s CV VAS LAB Right super femoral mid sys PSV 74 cm/s CV VAS LAB Right super femoral prox sys PSV 75 cm/s CV VAS LAB Right profunda sys PSV 47 cm/s CV VAS LAB Anatomical Region Laterality Modality Vascular, Abdomen Ultrasound Narrative 12/12/2024 9:29 AM EDT Right: The NYDIA could not be calculated due to noncompressible vessel. The toe brachial index also could not be calculated due to noncompressible vessel. Normal pulse volume waveform at the right ankle. Reduced amplitude PPG waveform in the digit. There is no significant stenosis. 3-vessel runoff is noted in the right calf. Left: The NYDIA could not be calculated due to noncompressible vessel. The toe brachial index also could not be calculated due to noncompressible vessel. Normal pulse volume waveform at the left ankle. Normal amplitude PPG waveform in the digit. There is no significant stenosis. 3-vessel runoff is noted in the left calf. Right NYDIA Right BP= 105/69 Right PT, DP, and digit are noncompressible. Left NYDIA Left BP not done due to sensor. Left PT, DP, and digit are noncompressible. Right Lower Arterial Duplex The distal external iliac artery has triphasic flow. The common femoral artery has triphasic flow. The profunda femoris artery has triphasic flow. The superficial femoral artery has triphasic flow. The popliteal artery has triphasic flow. The anterior tibial artery has triphasic flow. The posterior tibial artery has triphasic flow. The mid peroneal artery has triphasic flow. Left Lower Arterial Duplex The distal external iliac artery has triphasic flow. The common femoral artery has triphasic flow. The profunda femoris artery has biphasic flow. The superficial femoral artery has triphasic flow. The popliteal artery has triphasic flow. The anterior tibial artery has triphasic flow. The posterior tibial artery has triphasic flow. The mid peroneal artery has triphasic flow. Chief Deputy Court Clerk Details A reid scale, color and doppler analysis ultrasound was performed. During the study longitudinal views were obtained. Pulsed wave doppler was performed. us Talia ZIMMERMAN CV VASCULAR PROCEDURES Final Result documented in this encounter Visit Diagnoses Diagnosis PAD (peripheral artery disease) (CMS/HCC V24) Unspecified peripheral vascular disease Ectasia of artery (CMS/[facility] V24) documented in this encounter Additional Health Concerns Assessment Noted Time PHQ-9 Depression Total Score: 0 03/22/20 24 10:44 AM EST A fall risk assessment has been complete d for the patient 03/20/2024 12:04 PM EST documented as of this encounter Care Teams Cryptologic Technician Technical Relationship Specialty Start Date End Date Katie Gaytan MD [address] [place] [address] PCP - General 02/18/1999 documented as of this encounter
[2024-12-14] VITALS (8 sets, daily range): BP systolic 101–139; BP diastolic 58–90; PULSE 71–86; RESP 16–24; TEMP 36.5–36.8; O2SAT 91–98; BMI 31.9; BMI 31.8; BMI 33.8
--- NOTE | 2024-12-14 | ECG_ITS ---
Test Reason : SOB Blood Pressure : */* mmHG Vent. Rate : 83 BPM Atrial Rate : * BPM P-R Int : * ms QRS Dur : 98 ms QT Int : 370 ms P-R-T Axes : * 12 37 degrees QTcB Int : 434 ms Atrial fibrillation Abnormal ECG When compared with ECG of 09-Mar-2024 11:10, Premature ventricular complexes not present Referred By: Jay Napoles Electronically Signed By: KAREN SUAZO
--- NOTE | ~2024-12-14 | MR_ITS ---
EXAM: MRI lumbar spine without contrast TECHNIQUE: Multiplanar multisequence imaging through the cervical spine was performed from the base of the skull through at least T1. INDICATION: Weakness PRIOR: CT performed 12/20/2024 FINDINGS: Skull Base: There is no tonsillar ectopia. Cranialcervical junction is intact. Cord: There is no abnormal cord signal or hydrosyringomyelia. Marrow and end-plates: There is a lesion in the posterior half of C6 that demonstrates thickened trabeculation and increased signal on T1 and T2 sequences consistent with a benign vertebral hemangioma. Alignment: There is straightening of cervical lordosis. Soft tissues: Paraspinal soft tissues and major vascular structures are unremarkable. C2-3: Broad-based disc bulge results in mild spinal stenosis and mild flattening of the cord. Disc and osteophytes result in moderate bilateral foraminal narrowing. C3-4: There is mild loss of disc height and broad-based disc bulge with central disc extrusion resulting in moderate spinal stenosis and severe right subarticular zone narrowing. Disc and osteophytes result in severe right and moderate left foraminal narrowing. C4-5: There is mild loss of disc height and left central focal disc extrusion resulting in [id number] spinal stenosis. There is moderate bilateral foraminal narrowing. C5-6: There is mild loss disc height and circumferential broad-based disc bulge resulting in moderate to severe spinal stenosis with flattening of the ventral cord. Disc and osteophytes result in severe right foraminal narrowing and moderate left foraminal narrowing. C6-7: There is mild mild loss disc height and circumferential broad-based disc bulge resulting in mild spinal stenosis and moderate bilateral foraminal narrowing. C7-T1: There is mild loss disc height and circumferential broad-based disc bulge without spinal stenosis or foraminal narrowing. MR/MR cervical spine wo con IMPRESSION: C2-3: There is mild spinal stenosis and moderate bilateral foraminal narrowing. C3-4: There is moderate spinal stenosis and severe right subarticular zone narrowing with severe right and moderate left foraminal narrowing. C4-5: There is [id number] spinal stenosis and moderate bilateral foraminal narrowing. C5-6: There is moderate to severe spinal stenosis with severe right foraminal narrowing and moderate left foraminal narrowing. C6-7: There is mild spinal stenosis and moderate bilateral foraminal narrowing. Electronically signed by: Matthew Paz MD 01/03/2025 03:24 PM EDT RP
--- NOTE | ~2024-12-14 | XR_ITS ---
EXAMINATION: XR CHEST CLINICAL INFORMATION: hypoxia COMPARISON: 12/21/2024 TECHNIQUE: Frontal view of the chest was obtained. FINDINGS: Cardiomegaly is again noted. There is cephalization of pulmonary vessels. There is persistent opacity obscuring the medial left and medial right hemidiaphragm. There is chronic elevation of the left hemidiaphragm. There is minimal blunting of costophrenic angles. XR/XR chest 1V IMPRESSION: Cardiomegaly and pulmonary vascular congestion. Bibasilar atelectasis versus pneumonia. Chronic elevation of left hemidiaphragm could be related to weakness or paralysis. Electronically signed by: Matthew Paz MD 12/27/2024 02:50 PM EDT
--- NOTE | ~2024-12-14 | FL_ITS ---
EXAMINATION: XR BARIUM SWALLOW CLINICAL INFORMATION: Aspiration pneumonia. COMPARISON: None available. TECHNIQUE: Thick barium and saltine crackers coated with barium paste was administered in a semirecumbent position under fluoroscopy. FINDINGS: On oral administration of thick barium there is normal propagation bolus from the oral cavity through the pharynx esophagus into stomach. No laryngeal penetration or aspiration seen. On oral administration of barium coated saltine crackers there is normal oral mastication and propagation of solid food from the oral cavity, pharynx, esophagus into stomach without obstruction, narrowing or stricture. On oral administration of thin barium there is good distention of the entire esophagus without intraluminal filling defect or extrinsic compression. The GE junction is widely patent. FLUOROSCOPY TIME: 2.08 minutes DOSE AREA PRODUCT: 1492 uGy-m2 (microgray-meter squared) FL/FL barium swallow IMPRESSION: Unremarkable barium swallow examination in semiupright view. . No laryngeal penetration, aspiration or barium retention seen in the valleculae or piriform sinuses. Electronically signed by: Tha Sharpe MD 12/30/2024 04:36 PM EDT
--- NOTE | ~2024-12-14 | XR_ITS ---
EXAMINATION: XR CHEST CLINICAL INFORMATION: couh COMPARISON: From one day earlier TECHNIQUE: Frontal view of the chest was obtained. FINDINGS: Is again noted. There is persistent elevation of the left hemidiaphragm and left basilar density. Right lung is well aerated but the medial right hemidiaphragm remains partially obscured. There is persistent increased attenuation were reported vascularity overlaps posterior fifth ribs bilaterally. XR/XR chest 1V IMPRESSION: Cardiomegaly with improving pulmonary vascular congestion. Left basilar atelectasis versus pneumonia. Chronically elevated left hemidiaphragm. Persistent vague opacity where posterior fifth ribs overlap pulmonary vascularity, likely summation artifact, correlate for signs and symptoms of pneumonia. Electronically signed by: Matthew Paz MD 12/28/2024 05:15 PM EDT
--- NOTE | ~2024-12-14 | CT_ITS ---
CLINICAL HISTORY: hypoxia CT angiography chest with contrast. 3D Postprocessing. Comparison: CT/SR - CT CHEST WITHOUT IV CONTRAST - 12/15/24 10:24 EDT Findings: The heart is normal size. RV/LV ratio is normal. Unremarkable thoracic aorta and great vessels. No aneurysm. No pulmonary artery filling defects. The visualized thyroid and mediastinum are unremarkable. Bilateral lower lobe atelectasis. The upper abdomen is unremarkable. No acute fractures. IMPRESSION: 1. No pulmonary embolus. No acute aortic syndrome. 2. Large bilateral lower lobe atelectasis /Consolidation, grossly unchanged in the interval. This document has been electronically signed by: Leandra Diehl MD on 12/21/2024 20:12:23
--- NOTE | ~2024-12-14 | CT_ITS ---
EXAMINATION: CT CERVICAL SPINE WITHOUT CONTRAST CLINICAL INFORMATION: Abnormal neck kyphosis. COMPARISON: None available. TECHNIQUE: Contiguous axial images through the cervical spine using 3 mm collimation with bone and soft tissue algorithm. Sagittal and coronal reformatted images acquired. DLP: 577.[address] examination was performed using dose optimization techniques as appropriate, variously including the following: *Automated exposure control *Adjustment of mA and/or kV according to patient size (this includes techniques or standardized protocols for targeted exams where dose is matched to indication/reason for exam; i.e. extremities or head) *Use of iterative reconstruction technique FINDINGS: Patient's motion artifact. The patient's head position is tilted to the left. Craniocervical junction is intact. Degenerative changes at the occipital condyle and lateral masses C1 as well as periodontal C1 region. C1 is intact. C2 is intact. C3 is intact. C4 is intact. Right facet joint hypertrophy. C5 is intact. Right facet joint hypertrophy. C6 is intact. C7 is intact. Multilevel marginal osteophyte formation pronounced at C5-C6 C6-7 and to a lesser extent C4-5 and C3-4. Chondrocalcinosis in the intervertebral discs C3-4 C4-5 and C5-6 levels. Multilevel central spinal canal stenosis from C2-3 to C6-7 pronounced at C3-4, C4-5 and C5-6 levels. No prevertebral compartment hematoma. Tympanic cavities and mastoid cells are aerated.. CT/CT cervical spine wo IV con IMPRESSION: Multilevel cervical spondylosis C3 C7 resulting in central spinal canal stenosis C3-4 C4-5 and C5-6 level. No acute fracture or trauma-related listhesis. No gross masses. Fleischner guidelines were followed. Electronically signed by: Anshu Burns MD 12/21/2024 09:01 AM EDT
--- NOTE | ~2024-12-14 | XR_ITS ---
CLINICAL HISTORY: worsening hytpoxia Chest Radiograph Comparison: CT/SR - CT CHEST WITHOUT IV CONTRAST - 12/15/24 10:24 EDT CR/SR - XR CHEST 1 VIEW - 12/14/24 11:55 EDT Findings: Cardiomegaly. Normal mediastinal contours. No pneumothorax. Faint bilateral opacity with bibasilar opacity; increase in opacity in the left lung base. A small left pleural effusion could be considered, new. Normal upper abdomen. No acute fracture. Impression: Worsening multifocal pneumonia. Concurrent mild pulmonary edema may also be considered. This document has been electronically signed by: Shanelle Ying MD on 12/20/2024 13:39:22
--- NOTE | ~2024-12-14 | XR_ITS ---
EXAMINATION: XR CHEST CLINICAL INFORMATION: sob COMPARISON: February 12, 2023. TECHNIQUE: Frontal view of the chest was obtained. FINDINGS: Pulmonary reticular nodular pattern. Indistinct margins in the perihilar regions. Adonay B lines in the left hemithorax. No consolidation or pneumothorax. Cardiomediastinal silhouette size is normal with the questionable prominent right atrium. Multilevel thoracic spondylosis. Elevated left hemidiaphragm. XR/XR chest 1V IMPRESSION: Acute on chronic airspace disease versus mild to moderate interstitial lung edema. Persistent elevated left hemidiaphragm suggesting left phrenic paralysis/paresis.. Electronically signed by: Anshu Burns MD 12/14/2024 12:16 PM EDT
--- NOTE | ~2024-12-14 | CT_ITS ---
EXAMINATION: CT CHEST WITHOUT CONTRAST CLINICAL INFORMATION: Hypoxia COMPARISON: X-ray of December 14, [address] chest 03/24/2023 TECHNIQUE: Multidetector volumetric CT imaging of the chest was done. Axial MIP volume rendering provided. Sagittal and coronal reformatted images were obtained. This CT examination was performed using dose optimization techniques as appropriate, variously including the following: *Automated exposure control *Adjustment of mA and/or kV according to patient size (this includes techniques or standardized protocols for targeted exams where dose is matched to indication/reason for exam; i.e. extremities or head) *Use of iterative reconstruction technique DLP: 372 mGY*cm FINDINGS: LUNGS: On the prior examination, there is a 5.7 cm diameter area of rounded atelectasis posterior right lower lobe. On the current study, there is a large airspace opacity with air bronchograms involving most of the right lower lobe likely representing superimposed pneumonia and/or atelectasis. Right leg demonstrates intralobular septal thickening and faint groundglass densities. There are streaky linear densities in the right middle lobe. The left lung demonstrates intralobular septal thickening and groundglass densities. There is focal airspace opacity in the posterior left upper lobe and in the left lung base with air bronchograms. MEDIASTINUM: There is right hilar adenopathy and shotty mediastinal nodes the pericarinal and right upper paratracheal regions. The heart size is enlarged. CORONARY ARTERY CALCIFICATION: Present PLEURA: There are trace bilateral pleural effusions. There is focal calcification in the posterior inferior left greater than right pleura. AXILLA: No lymphadenopathy. UPPER ABDOMEN: Unremarkable. OSSEOUS STRUCTURES: Disc space narrowing and vacuum phenomenon and osteophytes are noted in the midthoracic spine. 2 focal sclerotic regions are present in the right ribs, third and sixth, and left humeral head stable since prior, likely representing bone islands. CT/CT chest wo IV con IMPRESSION: Multifocal airspace opacities with air bronchograms, trace pleural effusions, and right hilar adenopathy likely represents changes related to pneumonia. Obscured neoplasm is not ruled out, follow-up CT chest with IV contrast after resolution of current symptoms. Additionally, there is cardiomegaly and intralobular septal thickening and faint patchy groundglass densities that could represent pulmonary vascular congestion/mild pulmonary edema. Fleischner guidelines were followed. Electronically signed by: Matthew Paz MD 12/15/2024 11:35 AM EDT RP
--- NOTE | ~2024-12-14 | XR_ITS ---
CLINICAL HISTORY: Worsening oxygen saturation 1 view chest x-ray Comparison: CR - XR CHEST 1V - 12/20/24 10:54 EDT Findings: Slightly improved interstitial prominence. Cardiomegaly again noted. Possible small left effusion. No acute fracture. IMPRESSION: Improving interstitial prominence. Possible small left effusion. This document has been electronically signed by: Ketan Steele MD on 12/21/2024 07:12:48
--- NOTE | 2024-12-14 10:31 | PC.NURSE ---
Patient O2 78% RA, applied NC 6L 96%. Patient O2 drops when patient speaks for long periods of time and goes back up.
--- NOTE | 2024-12-14 11:37 | ED_ITS ---
HPI - SOB/Dyspnea General Chief Complaint: Dyspnea Stated Complaint: Low oxygen Time Seen by Provider: 12/14/24 11:05 History of Present Illness HPI Narrative: Patient is a 74-year-old male with a history of congestive heart failure history of atrial fibrillation currently on Coumadin history of DVTs in the past. Presented today with having increasing shortness of breath over the last few days. Noticing decreasing oxygenation there is no chest pain there is minimal coughing. Patient is from home. Patient is supposed to be on Lasix. Claims that the dose was doubled 2 weeks ago for 3 days. He claims when he sleeps is actually better. He claims when he walks it is actually better. Patient denies any diaphoresis. There is no leg pain that is new. Patient went to Wound Care today. Had his legs wrapped. He stated that it looks good. There is no fever. There is no chills. There is chronic venous stasis that is not new. He has a long history of diabetes. History of the atrial fibrillation. Related Data Home Medications ?Medication ?Instructions ?Recorded ?Confirmed atorvastatin 40 mg tablet 40 mg PO BEDTIME 09/03/22 dulaglutide 1.5 mg/0.5 mL 1.5 mg subcut TH@0900 12/14/24 [facility] folic acid 1 mg tablet 1 mg PO DAILY@1200 09/04/22 12/14/24 insulin lispro 100 unit/mL See Rx Instructions .Route .COMPLEX 09/04/22 12/14/24 subcutaneous solution (Humalog U-100 Insulin) flash glucose scanning reader #1 ea 01/06/23 03/09/24 (FreeStyle Pat 2 [place]) flash glucose sensor (FreeStyle #1 ea 01/06/23 4 Pat 2 Sensor kit) ammonium lactate 12 % topical cream 1 appl topical HEBER LY PRN Wound Care 02/12/23 12/14/24 silver sulfadiazine 1 % topical 1 appl topical DAILY P senior ui ux designer 02/12/23 12/14/24 cream sub-q insulin device, 20 unit 02/12/23 03/09/24 (V-GO 20 device) warfarin 5 mg tablet 5 mg PO SUMOWEFRSA@1800 01/2012/14/24 metformin 500 mg tablet,extended 500 mg PO BID 4 12/14/24 release 24 hr diltiazem HCl 120 mg tablet 120 mg PO DAILY 03/23/24 0 12/14/24 aspirin 81 mg tablet,delayed 81 mg PO DAILY 05/12/24 0 12/14/24 release (Adult Aspirin Regimen) metoprolol tartrate 100 mg tablet 150 mg PO BID@0900,1 700 12/14/24 12/14/24 warfarin 5 mg tablet 2.5 mg PO TUTH@1800 12/14/24 12/14/24 Previous Rx's ?Medication ?Instructions ?Recorded furosemide 20 mg tablet 20 mg PO DAILY #30 tabs 01/20 12/11 finasteride 5 mg tablet 5 mg PO DAILY 90 days #90 ta bs 08/31/24 tamsulosin 0.4 mg capsule 0.4 mg PO BEDTIME 90 days #9 0 caps 08/31/24 Allergies Allergy/AdvReac Type Severity Reaction Status Date / Time peanut (PEANUTS) Allergy Intermediate Hives Verified 12/14/24 10:24 wool (WOOL) Allergy Unknown UNK Verified 12/14/24 10:24 Review of Systems 2 Review of Systems: Positive shortness of breath. Minimal coughing old Yes all other systems are reviewed and are negative [facility] Past Medical History Attestation statement: The following information was validated with the patient. Medical History Atrial fibrillation with RVR BPH (benign prostatic hyperplasia) Chronic venous stasis dermatitis GERD (gastroesophageal reflux disease) CAD (coronary artery disease) Type 2 diabetes mellitus (HFpEF) heart failure with preserved ejection fraction Atrial fibrillation Surgical History Hx of colonoscopy Status post percutaneous transluminal angioplasty (CROSS CUT SAW OPERATOR) with stent placement Family History Family History Father Kidney cancer, primary, with metastasis from kidney to other site Heart disease Social History Social History Household Members: Other Housing: House Are you a primary rehab care assistant to a significant other at home: No Do you presently have visiting nurse or other home services: Yes Alcohol intake: current Alcohol intake frequency: holidays/special occasions only Patient Tobacco Use Status: Never used Tobacco Second Hand Smoke Exposure: No Advance Directives Date on File: 02/13/23 service: No Physical Exam 2 Exam: Exam: Appearance: Alert. Oriented X3. No acute distress. Eyes: Pupils equal, round and reactive to light. ENT: Pharynx normal. Neck: Normal inspection. Neck supple. No lymph nodes noted. No crepitus CVS: Irregularly irregular Respiratory: No respiratory distress. Breath sounds normal. No Wheezing. No rales Abdomen: Soft and nontender. No rigidity. No distention. good BS x4 Skin: Skin warm and dry. Normal skin color. Normal skin turgor. Extremities: Positive bilateral lower extremity edema currently wrapped in dressing that was just placed by wound care. Per family there is no acute changes. Neuro: Oriented X 3. No motor deficit. No sensory deficit. Moving all extermities. No slurred speech Vital Signs: Vital Signs: Last Vital Signs Temp 98.3 F 12/14/24 19:53 Pulse 83 12/14/24 19:53 Resp 18 12/14/24 19:53 BP 101/58 L 12/14/24 19:53 Pulse Ox 91 L 12/14/24 19:53 O2 Del Method Nasal Cannula 12/14/24 19:53 O2 Flow Rate 4 12/14/24 19:53 Oxygen Flow Rate 4 12/14/24 10:24 BMI result Body Mass Index 31.9 Medications Administered Generic Name Dose Route Start Last Admin Trade Name Freq PRN Reason Stop Dose Admin Acetazolamide 500 mg 12/14/24 17:00 12/14/24 18:03 Acetazolamide Sodium 500 Mg Vial IVPUSH 500 mg Q12H JOY Administration Atorvastatin Calcium 40 mg 12/14/24 21:00 12/14/24 20:16 Atorvastatin Calcium 40 Mg Tablet PO 40 mg BEDTIME JOY Administration Insulin Pump 1 each 12/14/24 21:00 12/14/24 20:16 Subcutaneous Insulin Pump SUBCUT 1 each QIDACHS JOY Administration Protocol Metoprolol Tartrate 150 mg 12/14/24 17:00 12/14/24 18:02 Metoprolol Tartrate 50 Mg Tablet PO 150 mg BID@0900,1700 JOY Administration Protocol Sodium Chloride 3 ml 12/14/24 16:00 12/14/24 20:36 0.9 % Sodium Chloride Flush 3 Ml Syringe IVFLUSH 3 ml QSHIFT JOY Administration Tamsulosin HCl 0.4 mg 12/14/24 21:00 12/14/24 20:16 Tamsulosin Hcl 0.4 Mg Capsule PO 0.4 mg BEDTIME JOY Administration Warfarin Sodium 2.5 mg 12/14/24 18:00 12/14/24 18:02 Warfarin Sodium 2.5 Mg Tablet PO 2.5 mg TUTH@1800 JOY Administration Discontinued Medications Generic Name Dose Route Start Last Admin Trade Name Jo Ann PRN Reason Stop Dose Admin Furosemide 40 mg 12/14/24 14:37 12/14/24 14:49 Furosemide 40 Mg/4 Ml Vial IVPUSH 12/14/24 14:38 40 mg ONCE ONE Administration Protocol Nitroglycerin 0.5 inch 12/14/24 14:38 12/14/24 15:04 Nitroglycerin 2 % Oint 1 Gm Packet TRANSDERMA 12/14/24 14:39 Not Given ONCE ONE Medical Decision Making Medical Decision Making [facility] Narrative: Patient hypoxic requiring 4 L of oxygen. Short of breath. My interpretation patient's chest x-ray showed bilateral infiltrate consistent with congestive heart failure. Patient's BNP is approximately 500 consistent with congestive heart failure history of CAD history of PE history of atrial fibrillation currently on Coumadin. His INR is therapeutic. Making PE less likely. Patient given Lasix nitro. Will admit for further evaluation. Cardiology was consulted agree with plan hospitalist team was consulted if we with plan. Differential Diagnosis Differential Diagnoses: The differential diagnosis associated with the presentation includes Congestive heart failure versus pneumonia versus PE Admission/Observation Consideration of admission/observation: Escalation of care including admission/observation considered Consult Healthcare Provider Management of the patient was discussed with: Hospitalist and Cloud Automation Tester (Cardiology) Lab Data [facility] Lab Attestation statement: I reviewed the patient's lab results. 12/14/24 13:18 12/14/24 13:18 Labs: Lab Results 12/14/24 Range/Units 13:18 WBC 6.2 (4.8-10.8) X10*3/uL RBC 5.90 H (4.60-5.80) X10*6/uL Hgb 14.0 D (14.0-18.0) g/dl Hct 48.6 D (42.0-52.0) % MCV 82.4 (80.0-98.0) fL MCH 23.7 L (27.0-33.0) pg MCHC 28.8 L (31.0-36.0) g/dl RDW 19.6 H (11.0-16.0) % Plt Count 195 D (160-400) X10*3/uL MPV 9.2 L (9.4-12.4) fL Immature Gran % (Auto) 0.5 H (0.0-0.4) % Neut % (Auto) 73.3 H (45-73) % Lymph % (Auto) 13.8 L (20-40) % [place] % (Auto) 10.0 (2-11) % Eos % (Auto) 1.9 (0-4) % Baso % (Auto) 0.5 (0-2) % Lymph # (Auto) 0.9 L (1.2-4.9) X10*3/uL [place] # (Auto) 0.6 (0.1-1.2) X10*3/uL Eos # (Auto) 0.1 (0.0-0.4) X10*3/uL Baso # (Auto) 0.0 (0.0-0.2) X10*3/uL Abs Immat Gran (auto) 0.03 (0.00-0.03) X10*3/uL Absolute Neuts (auto) 4.6 (2.0-8.3) x10*3/uL Absolute Nucleated RBC 0.000 (0.0-0.012) X10*3/uL Nucleated RBC % (auto) 0.0 (0.0-0.2) /100WBC PT 33.8 H D (10.9-12.4) SEC INR 2.9 H (0.9-1.1) Sodium 146 H (135-145) mmol/L Potassium 4.4 (3.3-5.1) mmol/L Chloride 104 (96-108) mmol/L Carbon Dioxide 35 H (22-29) mmol/L Anion Gap 11 L (12-20) BUN 30 H (9-16) mg/dL Creatinine 1.18 (0.5-1.4) mg/dL Estim Creat Clear Calc 79.7 Estimated GFR > 60 Random Glucose 147 H (60-115) mg/dL Calcium 8.7 (8.4-10.2) mg/dL Magnesium 1.8 (1.6-2.6) mg/dL Total Bilirubin 1.2 H (0.0-1.0) mg/dL AST 37 (5-37) U/L ALT 23 (0-40) U/L Alkaline Phosphatase 95 (39-117) U/L Troponin I High Sens 5.4 D (<3.5-35.0) ng/L B-Natriuretic Peptide 545 H (<100) pg/mL Total Protein 7.6 (6.5-8.0) g/dL Albumin 3.3 L (3.5-5.0) g/dL Digoxin < 0.2 L (0.8-2.0) ng/mL COVID-19 (VALENTINO) Negative (Negative) COVID-19 Clin Com See Note Independent Interpretation I performed an independent interpretation of an: EKG and Plain X-Ray (Bilateral infiltrate) Discharge Plan Discharge Clinical Impression: Acute congestive heart failure Patient Disposition: Admitted As Inpatient Interventions: Admission Worksheet (ED) Last Done: 12/14/24 15:34 Discharge Date/Time: 12/14/24 16:18
--- OUTSIDE RECORDS SUMMARY | 2024-12-14 12:01 | XMS_ITS | Encounter Summary ---
Author Organization [facility] Address [address] [place] [address] Care Team Providers Care Radio Division Captain Name Role Phone Katie Gaytan MD Primary Care Provider [phone] Yovany Giles MD Unavailable Nyla Grullon NP Unavailable Unavailable Encounter Details Date Type Department Care Team Description 05/29/2021 Credit Professional Report Medical Records [address] [place] [phone] Lizz Stark MD Social History Tobacco Use [...] on filedocumented in this encounter Care Teams Radio Division Captain Relationship Specialty Start Date End Date Katie Gaytan MD [address] [place], [place] [phone] PCP - General 02/18/1999 Yovany Giles MD [address] [place] [address] [phone] Specialist Cardiology 08/12/22 Nyla Grullon NP [address] [place] [address] Cardiology 12/02/22 documented as of this encounter
--- OUTSIDE RECORDS SUMMARY | 2024-12-14 12:01 | XMS_ITS | Encounter Summary ---
Author Organization [facility] Address [address] [place] [address] Care Team Providers Care Speech Writer Name Role Phone Katie Gaytan MD Primary Care Provider [phone] Yovany Giles MD Unavailable Nyla Grullon NP Unavailable Unavailable Reason for Visit * Reason Comments E-prescribe Rx Request Encounter Details Date Type Department Care Team Description 05/08/2022 Refill Adult Medicine [address] [address] Vicente Jarquin, PA-C [address] [place] [phone] E-prescribe Rx Request Social History Tobacco Use [...] encounter Miscellaneous Notes * Telephone Encounter - Lucia Pastor M.A. - 05/08/2022 4:50 PM EST Date of last office visit was 12/04/21. Pended appt for 05/21/22 Lab Results Component Value Date NA 142 09/06/2021 K 4.4 09/06/2021 CO2 31 09/06/2021 CL 107 09/06/2021 BUN 11 09/06/2021 CREAT 0.81 09/06/2021 GLU 103 09/06/2021 CA 9.1 09/06/2021 GFR > 60 09/06/2021 * Telephone Encounter - Zack Macedo - 05/08/2022 4:48 PM EST Patient would like script to be: E-PRESCRIBED/FAXED TO PHARMACY WHEN WAS THE PATIENT'S LAST APPOINTMENT IN ADULT MEDICINE? 12/04/2021 WHEN WAS THE LAST TIME THE PATIENT SAW THEIR PCP? Same as above Does patient have an upcoming appointment? Yes 05/21/2022 (THE MEDICATION REQUESTED IS ON THE MED [...] N/A Patients current insurance carrier is: Payor: [facility] / Plan: PPO $0 [id number] / Product Type: PPO [id number] documented in this encounter Plan of Treatment Not on file documented as of this encounter Visit Diagnoses Not on filedocumented in this encounter Care Teams Speech Writer Relationship Specialty Start Date End Date Katie Gaytan MD [address] [place] [address] [phone] PCP - General 02/18/1999 Yovany Giles MD [address] [place] [address] [phone] Specialist Cardiology 08/12/22 Nyla Grullon, TAMAR [address] [place] [address] Cardiology 12/02/22 documented as of this encounter
--- OUTSIDE RECORDS SUMMARY | 2024-12-14 12:01 | XMS_ITS | Encounter Summary ---
Author Organization [facility] Address [address] [place] [address] Care Team Providers Care Scientific Research Associate Name Role Phone Katie Gaytan MD Primary Care Provider [phone] Yovany Giles MD Unavailable Nyla Grullon FAITH HEALER Unavailable Unavailable Encounter Details Date Type Department Care Team Description 07/10/2021 Orders Only Adult Medicine [address] [phone] Katie Gaytan MD [address] [place] [address] [phone] Preoperative examination (Primary Dx) Social History Tobacco Use Types [...] AM EDT documented as of this encounter Plan of Treatment Not on file documented as of this encounter Visit Diagnoses Diagnosis Preoperative examination- Primary Preoperative examination, unspecified documented in this encounter Care Teams Scientific Research Associate Relationship Specialty Start Date End Date Katie Gaytan MD [address] [place] [phone] PCP - General 02/18/1999 Yovany Giles MD [address] [place] [address] Specialist Cardiology 08/12/22 Nyla Grullon NP [address] [place] [address] Cardiology 12/02/22 documented as of this encounter
--- OUTSIDE RECORDS SUMMARY | 2024-12-14 12:01 | XMS_ITS | Encounter Summary ---
Author Organization [facility] Address [address] [place] [address] Care Team Providers Care Emergency Vehicle Operator Name Role Phone Katie Gaytan MD Primary Care Provider [phone] Yovany Giles MD Unavailable Nyla Grullon NP Unavailable Unavailable Reason for Visit * Reason Onset Date Comments REFERRAL 05/29/2022 TEST RESULTS 05/29/2022 Labs 05/22/22 Encounter Details Date Type Department Care Team Description 05/29/2022 Pt. Non Urgent Medical Question Adult Medicine [address] [phone] Katie Gaytan MD [address] [place] [address] [phone] Social History Tobacco Use Types Packs/Day Years [...] suspected to have Coronavirus/COVID-19? No / Unsure 05/21/2022 8:23 AM EST documented as of this encounter Miscellaneous Notes * Telephone Encounter - Kristina Hannah M.A. - 05/29/2022 3:19 PM ESTFrom: Randy Tan To: Adalberto Gatyan Sent: 05/29/2022 3:06 PM EST Subject: Follow up to May 21 visit 1 - A few days ago, the rep of my [facility] doctor called me and said that they sent you a new official document about talking over my care. 2 - Because it is more than 3 years since my last exam in 2019, [facility] needs a new referral from my PCP to have a colonoscopy done. Their FAX number is . [facility] just [facility] call worker person who said that she will pass this on to one of your nurses. PS - I had blood and urine tests done on May 22. documented in this encounter Plan of Treatment Not on file documented as of this encounter Visit Diagnoses Not on filedocumented in this encounter Care Teams Emergency Vehicle Operator Relationship Specialty Start Date End Date Katie Gaytan MD [address] [place] [address] PCP - General 02/18/1999 Yovany Giles MD [address] [place] [address] Specialist Cardiology 08/12/22 Nyla Grullon NP [address] [place] [address] Cardiology 12/02/22 documented as of this encounter
--- OUTSIDE RECORDS SUMMARY | 2024-12-14 12:01 | XMS_ITS | Encounter Summary ---
Author Organization [facility] Address [address] [place] [address] Care Team Providers Care Lens Coater Name Role Phone Katie Gaytan MD Primary Care Provider [phone] Yovany Giles MD Unavailable Nyla Grullon NP Unavailable Unavailable Encounter Details Date Type Department Care Team Description 09/04/2021 Cytology Supervisor Report Medical Records [address] [place] [address] Lizz Stark MD Social History Tobacco Use [...] suspected to have Coronavirus/COVID-19? No / Unsure 09/06/2021 11:56 AM EDT documented as of this encounter Plan of Treatment Not on file documented as of this encounter Visit Diagnoses Not on filedocumented in this encounter Care Teams Lens Coater Relationship Specialty Start Date End Date Katie Gaytan MD [address] [place] [address] [phone] PCP - General 02/18/1999 Yovany Giles MD [address] [place] [address] Specialist Cardiology 08/12/22 Nyla Grullon NP [address] [place] [address] Cardiology 12/02/22 documented as of this encounter
--- OUTSIDE RECORDS SUMMARY | 2024-12-14 12:01 | XMS_ITS | Encounter Summary ---
Author Organization [facility] Address [address] [place] [address] Care Team Providers Care Electrical Design Engineer Name Role Phone Katie Gaytan MD Primary Care Provider Yovany Giles MD Unavailable Nyla Grullon NP Unavailable Unavailable Encounter Details Date Type Department Care Team Description 05/03/2022 Chemical Equipment Controller Report Medical Records [address] [place] [phone] Fern Tabares DPM Social History Tobacco Use [...] on filedocumented in this encounter Care Teams Electrical Design Engineer Relationship Specialty Start Date End Date Katie Gaytan MD [address] [place] [address] [phone] PCP - General 02/18/1999 Yovany Giles MD [address] [place] [address] [phone] Specialist Cardiology 08/12/22 Nyla Grullon NP [address] [place] [phone] Cardiology 12/02/22 documented as of this encounter
--- OUTSIDE RECORDS SUMMARY | 2024-12-14 12:02 | XMS_ITS | Encounter Summary ---
Author Organization [facility] Address [address] [place] [address] Care Team Providers Care Segment Block Layer Name Role Phone Katie Gaytan MD Primary Care Provider [phone] Yovany Giles MD Unavailable Nyla Grullon LEGAL PROCESS SPECIALIST Unavailable Unavailable Encounter Details Date Type Department Care Team Description 08/30/2021 Orders Only Adult Medicine [address] [phone] Katie Gaytan MD [address] [place] [address] [phone] Preoperative examination; Screening for deficiency anemia; jail current use of anticoagulant therapy Social History [...] 39.3 sec 09/06/2021 4:07 PM EDT [email or web address] 09/06/2021 11:5 7 AM EDT 09/06/2021 11:58 AM EDT Narrative [facility] - 09/06/2021 4:07 PM EDT Release to patient->Immediate Katie Gaytan MD LAB Performing Organization Address [facility]/ZIP Co de Phone Number [email or web address] * (ABNORMAL) PROTHROMBIN TIME (09/06/2021 11:57 AM EDT) Prothrombin Time 33.1(H) 10.6 - 13.9 SEC 09/06/2021 4:07 PM EDT [facility] INR 2.80 09/06/2021 4:07 PM EDT [facility] 09/06/2021 11:5 7 AM EDT 09/06/2021 11:58 AM EDT Narrative [facility] - 09/06/2021 4:07 PM EDT Release to patient->Immediate Katie Gaytan MD LAB Performing Organization Address [facility] Co de Phone Number [email or web address] * (ABNORMAL) CBC (AUTO DIFF PLATELET) (09/06/2021 [...] - 15 % 09/06/2021 3:56 PM EDT [facility]T COUNT 238 130 - 400 x10-3/uL 09/06/2021 3:56 PM EDT [facility] MEAN PLATELET VOLUME 9.7 7 - 11 fL 09/06/2021 3:56 PM EDT [facility] NRBC % AUTO 0.0 <1 % 09/06/2021 3:56 PM EDT [facility] NEUTROP[facility] % 62.0 % 09/06/2021 3:56 PM EDT [facility] % 24.2 % 09/06/2021 3:56 PM EDT [facility] MONO % 9.5 % 09/06/2021 3:56 PM EDT [facility] EOS % 3.4 % 09/06/2021 3:56 PM EDT [facility] BASO % 0.5 % 09/06/2021 3:56 PM EDT [facility] IMMATURE GRANULOCYTES % 0.4 % 09/06/2021 3:56 PM EDT [facility] NRBC # AUTO 0.00 <0.1 x10-3/uL 09/06/2021 3:56 PM EDT [facility] NEUT # 3.46 1.5 - 7.0 x10-3/uL 09/06/2021 3:56 PM EDT [facility] LYMPH # 1.35 1 - 5.0 x10-3/uL 09/06/2021 3:56 PM EDT [facility] MONO # 0.53 0.2 - 1.0 x10-3/uL 09/06/2021 3:56 PM EDT [facility] EOS # 0.19 0 - 0.5 x10-3/uL 09/06/2021 3:56 PM EDT [facility] BASO # 0.03 0 - 0.2 x10-3/uL 09/06/2021 3:56 PM EDT [facility] IMMATURE GRANULOCYTES # 0.02 0 - 0.03 x10-3/uL 09/06/2021 3:56 PM EDT [facility] 09/06/2021 11:5 7 AM EDT 09/06/2021 11:58 AM EDT Narrative [facility] - 09/06/2021 3:56 PM EDT Release to patient->Immediate Katie Gaytan MD LAB ROSALIN[facility] MONTEJO documented in this encounter Visit Diagnoses Diagnosis Preoperative examination Preoperative examination, unspecified Screening for deficiency anemia Screening for other and unspecified deficiency anemia extermination supervisor current use of anticoagulant therapy 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) Type II or unspecified type diabetes mellitus with other specified manifestations, not stated as uncontrolled Preoperative examination Preoperative examination, unspecified Screening for deficiency anemia Screening for other and unspecified deficiency anemia extermination supervisor current use of anticoagulant therapy Encounter for therapeutic drug monitoring Acute thromboembolism of deep veins of left lower extremity (HCC) documented in this encounter Care Teams Segment Block Layer Relationship Specialty Start Date End Date Katie Gaytan MD [address] [place] [phone] PCP - General 02/18/1999 Yovany Giles MD [address] [place] [phone] Specialist Cardiology 08/12/22 Nyla Grullon NP [address] [place] [phone] Cardiology 12/02/22 documented as of this encounter
--- OUTSIDE RECORDS SUMMARY | 2024-12-14 12:02 | XMS_ITS | Encounter Summary ---
Author Organization [facility] Address [address] [place] [address] Care Team Providers Care Rubber Block Layer Name Role Phone Katie Gaytan MD Primary Care Provider Yovany Giles MD Unavailable Nyla Grullon NP Unavailable Unavailable Reason for Visit * Reason Onset Date Comments lab test 03/03/2023 Lab results Encounter Details Date Type Department Care Team Description 03/03/2023 Telephone Cardio PVC POC 154 [address] [facility] [address] [place] [address] Nyla Grullon NP lab test (Lab results ) Social History Tobacco Use Types Packs/Day [...] In the last 10 days, have keegan u been in contact with someone who was confirmed or suspected to have Coronavirus/COVID-19? No / Unsure 03/05/2023 1:16 PM EST documented as of this encounter Miscellaneous Notes * Telephone Encounter - Nyla Grullon NP - 03/04/2023 10:10 AM EST Spoke with patient. Reviewed results in detail. Patient is going to stop digoxin and has holster monitor scheduled for tomorrow to ensure afib is rate controlled * Telephone Encounter - Bernie Padilla C.M.A. - 03/03/2023 11:53 AM EST Patient is concern with lab results; Mainly digoxin level. He will like call back from provider explaining why levels are low and why he's to stop Digoxin, ; he just started taking * Telephone Encounter - Bernie Padilla C.M.A. - 03/03/2023 11:52 AM EST ----- Message from Nyla Grullon NP sent at 03/03/2023 11:08 AM EST ----- Digoxin level low. Please ask patient to stop digoxin. Magnesium greatly improved and close to normal. Would like him to continue his magnesium supplement. Thank you documented in this encounter Plan of Treatment Not on file documented as of this encounter Visit Diagnoses Not on filedocumented in this encounter Care Teams Rubber Block Layer Relationship Specialty Start Date End Date Katie Gaytan MD [address] [place] [address] PCP - General 02/18/1999 Yovany Giles MD [address] [place] [address] Specialist Cardiology 08/12/22 Nyla Grullon NP [address] [place] [address] Cardiology 12/02/22 documented as of this encounter
--- OUTSIDE RECORDS SUMMARY | 2024-12-14 12:02 | XMS_ITS | Encounter Summary ---
Author Organization [facility] Address [address] [place] [address] Care Team Providers Care Director Of Operations For Therapy Name Role Phone Katie Gaytan MD Primary Care Provider Yovany Giels MD Unavailable Nyla Grullon TELEGRAPH OFFICE ROUTE AIDE Unavailable Unavailable Encounter Details Date Type Department Care Team Description 11/26/2022 Orders Only Cardio PVC POC [address] [place] [address] Yovany Giles MD [address] [place] [address] Social History Tobacco Use Types Packs/Day [...] on filedocumented in this encounter Care Teams Director Of Operations For Therapy Relationship Specialty Start Date End Date Katie Gaytan MD [address] [place] [address] [phone] PCP - General 02/18/1999 Yovany Giles MD [address] [place] [address] Specialist Cardiology 08/12/22 Nyla Grullon NP [address] [place] [address] Cardiology 12/02/22 documented as of this encounter
--- OUTSIDE RECORDS SUMMARY | 2024-12-14 12:02 | XMS_ITS | Encounter Summary ---
Author Organization [facility] Address [address] [place] [address] Care Team Providers Care Slug Press Operator Name Role Phone Katie Gaytan MD Primary Care Provider [phone] Encounter Details Date Type Department Care Team ([facility] Contact Info) Description 11/30/2024 Telephone Adult Medicine [address] [phone] Carmelita Henson, RN Social History Tobacco Use Types Packs/Day Years [...] ed Within the last 3 months, ho [place] many times did you visit the emergency [...] care for your loved ones. For example, child care centre director or elderly care for an older adult? [...] 9:30 AM EDT Office Visit Adult Medicine [address] [address] Katie Gaytan MD [address] [place] [address] 12/31/2024 9:30 AM EDT Office Visit Vascular Surgery - [place] [address] [place] [address] Kimmie Denny PA [address] [place] [address] 01/21/2025 8:40 AM EDT Office Visit [facility] - [address] [place] [address] Sarah Lee, TAMAR [address] [place] [address] 03/30/2025 9:20 AM EST Office Visit Endocrinology - [place] [address] [place] [address] Julia Oconnell PA [address] [place] [address] documented as of this encounter Visit Diagnoses Not on filedocumented in this encounter Additional Health Concerns Assessment Noted Time PHQ-9 Depression Total Score: 0 03/22/20 10:44 AM EST A fall risk assessment has been complete d for the patient 03/20/2024 12:04 PM EST documented as of this encounter Care Teams Slug Press Operator Relationship Specialty Start Date End Date Katie Gaytan MD [address] [place] [address] PCP - General 02/18/1999 documented as of this encounter
--- OUTSIDE RECORDS SUMMARY | 2024-12-14 12:02 | XMS_ITS | Encounter Summary ---
Author Organization [facility] Address [address] [place] [address] Care Team Providers Care Systems Test Engineer Name Role Phone Katie Gaytan MD Primary Care Provider [phone] Yovany Giles MD Unavailable Nyla Grullon NP Unavailable Unavailable Encounter Details Date Type Department Care Team Description 02/26/2018 Wealth Management Consultant Report Medical Records [address] [place] [address] Lesley Medeiros Social History Tobacco Use Types [...] on filedocumented in this encounter Care Teams Systems Test Engineer Relationship Specialty Start Date End Date Katie Gaytan MD [address] [place] [address] [phone] PCP - General 02/18/1999 Yovany Giles MD [address] [place] [address] [phone] Specialist Cardiology 08/12/22 Nyla Grullon NP [address] [place] [address] Cardiology 12/02/22 documented as of this encounter
--- OUTSIDE RECORDS SUMMARY | 2024-12-14 12:02 | XMS_ITS | Encounter Summary ---
Author Organization [facility] Address [address] [place] [address] Care Team Providers Care Piece Dye Worker Name Role Phone Katie Gaytan MD Primary Care Provider [phone] Yovany Giles MD Unavailable Nyla Grullon NP Unavailable Unavailable Reason for Visit * Reason Onset Date Comments Appointment-Internal Referral 01/09/2023 Pu lmo Encounter Details Date Type Department Care Team Description 01/09/2023 Telephone Cardio PVC [facility] [address] [facility] [address] [address] [place] [address] Nyla Grullon NP Appointment-Internal Referral ([place]) Social History Tobacco Use Types Packs/Day Years [...] suspected to have Coronavirus/COVID-19? No / Unsure 01/07/2023 2:18 PM EDT documented as of this encounter Miscellaneous Notes * Telephone Encounter - Molly Morrell - 01/09/2023 12:36 PM EDT You have referred this patient for KIRILL. We cannot process this order as a Sleep Study is needed forthis DX. Please complete the pended order as required. Thank you. documented in this encounter Plan of Treatment Not on file documented as of this encounter Visit Diagnoses Not on filedocumented in this encounter Care Teams Piece Dye Worker Relationship Specialty Start Date End Date Katie Gaytan MD [address] [place] [address] PCP - General 02/18/1999 Yovany Giles MD [address] [place] [address] Specialist Cardiology 08/12/22 Nyla Grullon NP [address] [place] [address] Cardiology 12/02/22 documented as of this encounter
--- OUTSIDE RECORDS SUMMARY | 2024-12-14 12:02 | XMS_ITS | Encounter Summary ---
Author Organization [facility] Address [address] [place] [address] Care Team Providers Care Headwaiter/Headwaitress Name Role Phone Katie Gaytan MD Primary Care Provider [phone] Yovany Giles MD Unavailable Nyla Grullon NP Unavailable Unavailable Encounter Details Date Type Department Care Team Description 11/07/2022 Hospital Medical Records [address] [place] [address] [facility] Social History Tobacco Use Types Packs/Day [...] on filedocumented in this encounter Care Teams Headwaiter/Headwaitress Relationship Specialty Start Date End Date Katie Gaytan MD [address] [place] [address] PCP - General 02/18/1999 Yovany Giles MD [address] [place] [address] Specialist Cardiology 08/12/22 Nyla Grullon NP [address] [place] [address] Cardiology 12/02/22 documented as of this encounter
--- OUTSIDE RECORDS SUMMARY | 2024-12-14 12:02 | XMS_ITS | Encounter Summary ---
Author Organization [facility] Address [address] [place] [address] Care Team Providers Care Floorhand Name Role Phone Katie Gaytan MD Primary Care Provider [phone] Yovany Giles MD Unavailable Nyla Grullon NP Unavailable Unavailable Reason for Visit * Reason Onset Date Comments Prior Authorization 05/22/2017 Encounter Details Date Type Department Care Team Description 05/22/2017 Telephone Radiology - [address] [phone] Katie Gaytan MD [address] [place] [address] [phone] Prior Authorization Social History Tobacco Use Types Packs/Day Years [...] encounter Miscellaneous Notes * Telephone Encounter - Maliha Dozier - 05/22/2017 12:35 PM EST No auth required [facility] * Telephone Encounter - Taylor Tapia - 05/22/2017 11:17 AM EST Requesting prior authorizaiton for an echocardiogram. Thank you documented in this encounter Plan of Treatment Not on file documented as of this encounter Visit Diagnoses Not on filedocumented in this encounter Care Teams Floorhand Relationship Specialty Start Date End Date Katie Gaytan MD [address] [place] [address] PCP - General 02/18/1999 Yovany Giles MD [address] [place] [address] Specialist Cardiology 08/12/22 Nyla Grullon NP [address] [place] [address] Cardiology 12/02/22 documented as of this encounter
--- OUTSIDE RECORDS SUMMARY | 2024-12-14 12:02 | XMS_ITS | Encounter Summary ---
Author Organization [facility] Address [address] [place] [address] Care Team Providers Care Band Lining Bander Name Role Phone Katie Gaytan MD Primary Care Provider [phone] Yovany Giles MD Unavailable Nyla Grullon NP Unavailable Unavailable Reason for Visit * Reason Onset Date Comments Storage Garage Manager Feedback 12/02/2017 Podiatry Encounter Details Date Type Department Care Team Description 12/02/2017 Telephone Podiatry - [address] [address] Fern Tabares DPM Storage Garage Manager Feedback (Podiatry) Social History Tobacco Use Types Packs/Day Years [...] encounter Miscellaneous Notes * Telephone Encounter - Radha Avila - 12/02/2017 8:05 AM EDT No insurance referral required per patient's insurance.([facility]) This plan does not require referrals. * Telephone Encounter - Josie Hernandez - 12/02/2017 7:04 AM EDT Request for a referral to a [facility] Specialist for a patient with a [facility] PCP. If patient does NOT have a [facility] PCP they must obtain a referral from their PCP before being seen-do not submit request to Referrals department-contact patient. Donny ZIMMERMAN and Ephraim [place] PA should not see patients with community PCP's as they are not billed as specialists. Specialty patient is being referred to: Podiatry Name of Specialist patient is seeing: Reason/diagnosis for visit: 3 months f/u diabetic foot care Date of appoinment: 12/02/17 If retro, date referral needs to start: n/a Katie Gaytan Payor: [facility] / Plan: [facility] MEDICARE COMPLETE $20/$45 SLC / Product Type: PPO [id number] documented in this encounter Plan of Treatment Not on file documented as of this encounter Visit Diagnoses Not on filedocumented in this encounter Care Teams Band Lining Bander Relationship Specialty Start Date End Date Katie Gaytan MD [address] [place] [address] PCP - General 02/18/1999 Yovany Giles MD [address] [place] [address] Specialist Cardiology 08/12/22 Nyla Grullon NP [address] [place] [address] Cardiology 12/02/22 documented as of this encounter
--- OUTSIDE RECORDS SUMMARY | 2024-12-14 12:02 | XMS_ITS | Encounter Summary ---
Author Organization [facility] Address [address] [place] [address] Care Team Providers Care Supply Chain Tech Name Role Phone Katie Gaytan MD Primary Care Provider [phone] Yovany Giles MD Unavailable Nyla Grullon NP Unavailable Unavailable Reason for Visit * Reason Onset Date Comments Medical Records 02/24/2023 Encounter Details Date Type Department Care Team Description 02/24/2023 Telephone Cardio PVC POC [address] [facility] [address] [place] [address] Yovany Giles MD [address] [place] [address] [phone] Medical Records Social History Tobacco Use Types [...] Randy went back to the ER at [facility] on 02/18/23. Can ypu please get his records prior to his 02/26/23 hospital follow up appointment with Nyla Grullon? Thanks. documented in this encounter Plan of Treatment Not on file documented as of this encounter Visit Diagnoses Not on filedocumented in this encounter Care Teams Supply Chain Tech Relationship Specialty Start Date End Date Katie Gaytan MD [address] [place] [address] PCP - General 02/18/1999 Yovany Giles MD [address] [place] [address] Specialist Cardiology 08/12/22 Nyla Grlulon NP [address] [place] [address] Cardiology 12/02/22 documented as of this encounter
--- OUTSIDE RECORDS SUMMARY | 2024-12-14 12:02 | XMS_ITS | Encounter Summary ---
Author Organization [facility] Address [address] [place] [address] Care Team Providers Care Highway Technician Name Role Phone Katie Gaytan MD Primary Care Provider [phone] Yovany Giles MD Unavailable Nyla Grullon NP Unavailable Unavailable Encounter Details Date Type Department Care Team Description 03/04/2023 Orders Only Cardio PVC POC 154 [address] [facility] [address] [place] [address] Default, Provider Social History Tobacco Use Types [...] Name Priority Date/Time Associated Diagnosis Comments CHG RADIOLOGIC EXAM CHEST 2 VIEWS Routine 02/12/2023 documented in this encounter Results * RADIOLOGIC EXAM CHEST 2 VIEWS (02/12/2023) Provider Default RADIOLOGY documented in this encounter Visit Diagnoses Not on filedocumented in this encounter Care Teams Highway Technician Relationship Specialty Start Date End Date Katie Gaytan MD [address] [place] [address] PCP - General 02/18/1999 Yovany Giles MD [address] [place] [address] Specialist Cardiology 08/12/22 Nyla Grullon NP [address] [place] [address] Cardiology 12/02/22 documented as of this encounter
--- OUTSIDE RECORDS SUMMARY | 2024-12-14 12:02 | XMS_ITS | Encounter Summary ---
Author Organization [facility] Address [address] [place] [address] Care Team Providers Care Factory Manager Name Role Phone Katie Gaytan MD Primary Care Provider [phone] Yovany Giles MD Unavailable Nyla Grullon NP Unavailable Unavailable Encounter Details Date Type Department Care Team Description 11/07/2022 Telephone Cardio PVC POC 154 300 [facility] [address] [place] [address] Fern Veliz, TAMAR [address] [place] [address] Social History Tobacco Use Types [...] on filedocumented in this encounter Care Teams Factory Manager Relationship Specialty Start Date End Date Katie Gaytan MD [address] [place] [address] PCP - General 02/18/1999 Yovany Giles MD [address] [place] [address] Specialist Cardiology 08/12/22 Nyla Grullon NP [address] [place] [address] Cardiology 12/02/22 documented as of this encounter
--- OUTSIDE RECORDS SUMMARY | 2024-12-14 12:02 | XMS_ITS | Encounter Summary ---
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
--- OUTSIDE RECORDS SUMMARY | 2024-12-14 12:02 | XMS_ITS | Encounter Summary ---
Author Organization [facility] Address [address] [place] [address] Care Team Providers Care Um Specialist Name Role Phone Katie Gaytan MD Primary Care Provider [phone] Yovany Giles MD Unavailable Nyla Grullon NP Unavailable Unavailable Reason for Visit * Reason Onset Date Comments Faxed Refill 10/09/2015 Lisinopril 40 mg Encounter Details Date Type Department Care Team Description 10/09/2015 Refill Adult Medicine [address] [phone] Katie Gaytan MD [address] [place] [address] [phone] Faxed Refill (Lisinopril 40 mg ) Social [...] Payor: RALPH / Plan: POS $0 DAPHNE [id number] / Product Type: POS [id number] documented in this encounter Plan of Treatment Not on file documented as of this encounter Visit Diagnoses Not on filedocumented in this encounter Care Teams Um Specialist Relationship Specialty Start Date End Date Katie Gaytan MD [address] [place] [address] PCP - General 02/18/1999 Yovany Giles MD [address] [place] [address] Specialist Cardiology 08/12/22 Nyla Grullon NP [address] [place] [address] Cardiology 12/02/22 documented as of this encounter
--- OUTSIDE RECORDS SUMMARY | 2024-12-14 12:02 | XMS_ITS | Encounter Summary ---
Author Organization [facility] Address [address] [place] [address] Care Team Providers Care Observer Gravity Prospecting Name Role Phone Katie Gaytan MD Primary Care Provider [phone] Yovany Giles MD Unavailable Nyla Grullon CODING SPEC Unavailable Unavailable Encounter Details Date Type Department Care Team Description 02/12/2023 Hospital Medical Records [address] [place] [address] [address] [place] [address] Social History Tobacco Use Types Packs/Day Years [...] on filedocumented in this encounter Care Teams Observer Gravity Prospecting Relationship Specialty Start Date End Date Katie Gaytan MD [address] [place] [address] [phone] PCP - General 02/18/1999 Yovany Giles MD [address] [place] [address] Specialist Cardiology 08/12/22 Nyla Grullon NP [address] [place] [address] Cardiology 12/02/22 documented as of this encounter
--- OUTSIDE RECORDS SUMMARY | 2024-12-14 12:02 | XMS_ITS | Encounter Summary ---
Author Organization [facility] Address [address] [place] [address] Care Team Providers Care Crusher Dry Ground Mica Name Role Phone Katie Gaytan MD Primary Care Provider [phone] Yovany Giles MD Unavailable Nyla Grullon NP Unavailable Unavailable Encounter Details Date Type Department Care Team Description 02/18/2023 Hospital Medical Records [address] [place] [address] [facility] Social History Tobacco Use Types Packs/Day [...] on filedocumented in this encounter Care Teams Crusher Dry Ground Mica Relationship Specialty Start Date End Date Katie Gaytan MD [address] [place] [address] [phone] PCP - General 02/18/1999 Yovany Giles MD [address] [place] [address] Specialist Cardiology 08/12/22 Nyla Grullon NP [address] [place] [address] Cardiology 12/02/22 documented as of this encounter
--- OUTSIDE RECORDS SUMMARY | 2024-12-14 12:02 | XMS_ITS | Encounter Summary ---
Author Organization [facility] Address [address] [place] [address] Care Team Providers Care Metal Finish Inspector Name Role Phone Katie Gaytan MD Primary Care Provider [phone] Yovany Giles MD Unavailable Nyla Grullon NP Unavailable Unavailable Encounter Details Date Type Department Care Team Description 09/04/2022 Billing Assistant Report Medical Records [address] [place] [address] Abstract, Provider Social History Tobacco Use Types [...] suspected to have Coronavirus/COVID-19? No / Unsure 08/09/2022 8:03 AM EDT documented as of this encounter Plan of Treatment Not on file documented as of this encounter Visit Diagnoses Not on filedocumented in this encounter Care Teams Metal Finish Inspector Relationship Specialty Start Date End Date Katie Gaytan MD [address] [place] [address] [phone] PCP - General 02/18/1999 Yovany Giles MD [address] [place] [address] [phone] Specialist Cardiology 08/12/22 Nyla Grullon NP [address] [place] [address] Cardiology 12/02/22 documented as of this encounter
--- OUTSIDE RECORDS SUMMARY | 2024-12-14 12:02 | XMS_ITS | Clinical Summary ---
Author Organization [address] [place] [address] [place] [phone] Phone Care Team Providers Care Regional Vice President Life [employer] Name Role Phone Katie Gaytan MD Primary Care Provider [phone] Allergies Active Allergy Reactions Criticality Noted Date Comments Lanolin Rash 04/17/2007 Allergic to wool causes rash Other 02/03/2023 Other reaction(s): Hives Peanut Hives 04/16/2006 Wool 04/02/2023 Medications ammonium lactate (AMLACTIN) 12 % cream Apply topically 2 times daily as needed. Active finasteride (PROSCAR) 5 mg tablet Urologist prescribed meds Active insulin pump cart,10 units/day cartridge CHANGE POD DAILY, USE 4-6 CLICKS PER MEAL 024 Active tamsulosin (FLOMAX) 0.4 mg 24 hr capsule Urologist prescribed meds Active lancets lancets by Other route. Active aspirin 81 mg EC tablet Take 1 tablet (81 mg total) by mouth 1 (one) time each day. 025 2025 Active digoxin (LANOXIN) 125 mcg (0.125 mg) tablet Take 1 tablet (125 mcg total) by mouth 1 (one) time each day. 90 tablet 2 025 Active blood-glucose meter,continuous (DataguiseStyle Pat 3 [place]) miscIndications: DM (diabetes mellitus), type 2 with neurological complications (CMS/HCC V24, CMS/HCC V28) CGM, use with pat sensor 1 each 025 Active atorvastatin (LIPITOR) 40 mg tablet TAKE ONE TABLET BY MOUTH ONCE DAILY 90 tablet 1 025 Active furosemide (LASIX) 20 mg tablet TAKE ONE TABLET BY MOUTH ONCE DAILY 90 tablet 1 025 Active metFORMIN XR (GLUCOPHAGE-XR) 500 mg 24 hr tablet TAKE ONE TABLET BY MOUTH TWO TIMES A DAY WITH FOOD 60 tablet 2 025 Active insulin lispro 100 unit/mL injection USE IN V-GO 20 SUBCUTANEOUS INSULIN DELIVERY SYSTEM FOR MAX 55 UNITS/DAY. 20 mL 11 025 Active hydrocortisone 1 % lotionIndication s:Venous stasis ulcer of left calf with varicose veins, unspecified ulcer stage ([facility] V24, [facility] V28),Venous stasis ulcer of right calf limited to breakdown of skin with varicose veins ([facility] V24, [facility] V28),Personal history of DVT (deep vein thrombosis),Post -thrombotic syndrome Apply topically 2 (two) times a day. Apply to lower leg itchy areas bilaterally. Do not apply to open wounds. 118 mL 2 025 2025 Active Trulicity 1.5 mg/0.5 mL pen injector injection INJECT 1.5 MILLIGRAMS SUBCUTANEOUSLY ONCE A WEEK DIRECTED 2 mL 6 025 Active warfarin (COUMADIN) 5 mg tablet TAKE 1 TO 2 TABLETS BY MOUTH ONCE DAILY. MAY CAUSE HEAVY BLEEDING AND TAKE AT THE SAME TIME EVERY DAY. DO NOT CHANGE DIETARY HABITS 180 tablet 1 025 Active folic acid (FOLVITE) 1 mg tablet TAKE ONE TABLET BY MOUTH ONCE DAILY 90 tablet 1 025 Active blood-glucose sensor (FreeStyle Pat 3 Plus Sensor) deviceIndication s:Type 2 diabetes mellitus with chronic kidney disease, with long-term current use of insulin, unspecified CKD stage ([facility] V24, [facility] V28) Change sensor every 15 days 6 each 1 025 Active metoprolol tartrate (LOPRESSOR) 100 mg tablet Take 1.5 tablets (150 mg total) by mouth 2 (two) times a day. 180 each 3 025 Active amoxicillin-clav ulanate (AUGMENTIN) 500-125 mg per tablet Take 1 tablet by mouth 1 (one) time each day. Active sub-q insulin device, 20 unit (V-GO 20) device CHANGE POD DAILY. USE 2-3 CLICKS BEFORE EACH MEAL. USE ONE ADDITIONAL CLICK FOR CARB HEAVY MEALS. 30 kit 5 025 Active blood-glucose meter kitIndications:D M (diabetes mellitus), type 2 with neurological complications ([facility] V24, [facility] V28) Use to check bs daily 1 each 025 Active blood sugar diagnostic (Contour Next Test Strips) test stripIndications :DM (diabetes mellitus), type 2 with neurological complications ([facility] V24, [facility] V28) Use to check bs 3 times a day 100 each 12 025 2025 Active lancets (Microlet Lancet) lancetsIndicatio ns:DM (diabetes mellitus), type 2 with neurological complications ([facility] V24, [facility] V28) Use to check bs 3 times daily 100 each 12 025 2025 Active glucose blood test strip Use as instructed 100 each 2 024 2024 Discontinued Active Problems Problem Noted Date Diagnosed Date Personal history of DVT (deep vein thrombosis) 1 04/27/2023 Hypotension 05/16/2023 Sepsis ([facility] V24, [facility] V28) 05/16/2023 Urinary tract infection with hematuria Overview (02/02/2024): Urosepsis, please see note 04/30/23, obstructive uropathy likely from BPH, requiring prolonged Julio cath/bag. Following with urology Dr. Michael Rutledge CHF (congestive heart failure) ([facility] V24, [facility] V28) 02/25/2023 Overview (04/22/2024): Echo 01/2023 LVEF 55-60% with moderate LVH PYP 11/2023 without suggestion of TTR amyloidosis Assessment & Plan (10/20/2024 8:08 PM EDT): The patient does have significant lower extremity edema specifically right greater than left with excessive weeping. Will discontinue his diltiazem due to the side effect of lower extremity edema and increase his metoprolol to 150 mg twice daily. He will continue his digoxin at current dose for now. Will obtain a Holter monitor to ensure that we have adequate rate control with this medication change. We will increase his furosemide to 40 mg once daily for 4 days and can continue longer if needed. He has had some report of relative increased breathlessness though his lungs are clear and he does not have any significant JVD. Though he attributes it to age, he may feel better on a higher diuretic dose. Consideration can also be given for SGLT2 in management of volume status for his HFpEF He will remain on his anticoagulation with apixaban. He has not had any bleeding issues. Assessment & Plan (04/22/2024 8:08 PM EST): [...] following abnormal stress test Assessment & Plan (10/20/2024 8:09 PM EDT): The patient does not have any anginal sounding chest discomfort. He has some mild breathlessness, which is likely multifactorial in etiology including his atrial fibrillation and HFpEF. Follow with increased diuretic and metoprolol off of diltiazem. Continue otherwise his aspirin and statin. He will notify me of any changes in his current condition Assessment & Plan (04/22/2024 8:08 PM EST): [...] & Plan (03/24/2024 1:07 PM EST): Cardiomyopathy (CMS/HCC V24, CMS/HCC V28) 2022 Overview (02/02/2024): Last Assessment & Plan: Left ventricular systolic function was reported to be normal from outside echo report. Does have a LVH. Will rule out amyloidosis. Tremor 10/24/2022 Chronic venous stasis 10/21/2019 Assessment & Plan (10/20/2024 8:06 PM EDT): The patient has chronic venous stasis and follows with the vascular team. He has weeping wounds on his right gross. I am highly concerned for cellulitis, and as such, have prescribed cephalexin 500 mg 4 times daily for 5 days. I suggest probiotic or yogurt with live active cultures to be taken with his antibiotic as he reports that he has had GI issues on antibiotics historically. I am also discontinuing his diltiazem as this is likely adding to his edema and propensity to have weeping wounds. He will increase his furosemide to 40 mg once daily for 4 days, and if needed, we can extend his diuretic burst. I have sent a referral to the wound clinic at [facility] as this is his preference I have advised that the patient or his change his dressings if they become saturated so is not to leave wet bandages on his open skin. I have asked that he follow-up with his PCP team next week for reevaluation and to determine if he needs further antibiotics and/or other treatments. As always, if his symptoms progress, would recommend evaluation in the ER for consideration of IV diuretics and IV antibiotics Atrial fibrillation (CMS/HCC V24, CMS/HCC V28) 0 09/05/2017 Assessment & Plan (10/20/2024 8:10 PM EDT): The patient is in persistent atrial fibrillation with well-controlled heart rate. We are discontinuing his diltiazem as above in favor of metoprolol given his lower extremity edema. His digoxin level is on the higher side. Follow his heart rate control on upcoming Holter. Continue his anticoagulation with Coumadin with goal INR 2-3. 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 Embolism and thrombosis of a rteries of lower extremity ([facility] V24, [facility] V28) 03/18/2017 Umbilical hernia without obstruction and without gangrene 03/02/2015 Assessment & Plan (03/24/2024 1:07 PM EST): Other specified anemias 02/15/2015 DM ketoacidosis type II, unc ontrolled ([facility] V24, [facility] V28) 09/21/2014 Microalbuminuria 09/21/2014 Nuclear sclerosis 09/21/2014 Overview (02/02/2024): Dr Pedersen note 1-26-15 KIRILL (obstructive sleep apnea) 04/19/2014 Assessment & Plan (10/20/2024 8:03 PM EDT): The patient has a high likelihood for obstructive sleep apnea given his HFpEF, persistent atrial fibrillation, CAD, and weight with reported borderline sleep study from number of years ago. I again discussed the importance of determining if he does have obstructive sleep apnea as it is possible that it is adding to his venous insufficiency/edema. He agrees to call the sleep study center to arrange a home sleep study when he gets home today. Assessment & Plan (04/22/2024 8:08 PM EST): [...] 1:07 PM EST): Chronic kidney disease due t o type 2 diabetes mellitus ([facility] V24, [facility] V28) 05/29/2005 Overview (02/02/2024): Last Assessment & Plan: Checking Your Blood Sugars Please check your blood sugars every day. Please check your sugars at the following times of day: before breakfast, before dinner and before bedtime Your Blood Sugar Goals Pre Meal: 90-130 2 hours after meals: 110-160 Bedtime: 110-150 Use the Results Bring your glucometer to every appointment Write your fingerstick blood sugars down on a log sheet or record book. Bring them to your appointment Look for patterns in the numbers. The [...] continue to follow with your specilaist at [facility], and get me the record. 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 No evidence of reflux esophagitis. Essential hypertension, benign 05/29/2005 Assessment & Plan (10/20/2024 8:10 PM EDT): Patient's blood pressure is recently well-controlled on current dose beta- ela and diltiazem. Follow with discontinuation of calcium channel ela and uptitration of beta-ela as above. His blood pressure will tolerate diuretic burst and/or increased to 40 mg daily if needed chronically Assessment & Plan (04/22/2024 8:08 PM EST): Blood pressure well-controlled on current regimen of calcium channel ela, diuretic and beta-ela. Continue Assessment & Plan (03/24/2024 1:07 PM EST): Morbid obesity ([facility] V24, [facility] V28) 2005 Pure hypercholesterolemia 05/29/2005 Assessment & Plan (10/20/2024 8:11 PM EDT): Very well-controlled lipid profile on current dose statin. Continue Assessment & Plan (04/22/2024 8:08 PM EST): Very well-controlled lipid profile on current dose statin given known CAD. Continue Assessment & Plan (03/24/2024 1:07 PM EST): Resolved Problems Problem Noted Date Diagnosed Date Resolved Date Decreased cardiac ejection fraction 10/24/2022 10/20/2024 Chest pain 10/16/2022 10/20/2024 Encounters Date Type Department Care Team Description 12/13/2024 Anticoagulation - Warfarin Visit Coumadin Clinic - [address] [phone] Latasha Deleon LPN Personal history of DVT (deep vein thrombosis) (Primary Dx) 12/09/2024 10:00 AM EDT Ancillary Procedure [facility] [address] [place] [address] PAD (peripheral artery disease) ([facility] V24); Ectasia of artery ([facility] V24) 12/07/2024 Telephone Vascular Surgery - [place] [address] [place] [address] Jose Kauffman MD 12/06/2024 Anticoagulation - Warfarin Visit Coumadin [address] [phone] Latasha Deleon LPN Personal history of DVT (deep vein thrombosis) (Primary Dx) 11/30/2024 Telephone Adult Medicine [address] [phone] Carmelita Henson RN 11/30/2024 Telephone [facility] - [address] [place] [address] Yovany Giles MD 11/30/2024 Telephone Adult [address] [phone] Katie Gaytan MD 11/29/2024 Anticoagulation - Warfarin Visit Coumadin [address] [phone] Shonna White LPN Personal history of DVT (deep vein thrombosis) (Primary Dx) 11/22/2024 Anticoagulation - Warfarin Visit Coumadin [address] [phone] Shonna White LPN Personal history of DVT (deep vein thrombosis) (Primary Dx) 11/16/[address] [phone] Julia Oconnell PA 11/15/2024 Anticoagulation - Warfarin Visit Coumadin [address] [phone] Shonna White LPN Personal history of DVT (deep vein thrombosis) (Primary Dx) 11/08/2024 Anticoagulation - Warfarin Visit Coumadin [address] [phone] Latasha Deleon LPN Personal history of DVT (deep vein thrombosis) (Primary Dx) 11/01/2024 9:00 AM EDT Ancillary Procedure [facility] [address] [facility] 101 [place] [address] Longstanding persistent atrial fibrillation (CMS/HCC V24, CMS/HCC V28) 11/01/2024 Anticoagulation - Warfarin Visit Coumadin [address] [phone] Shonna White LPN Personal history of DVT (deep vein thrombosis) (Primary Dx) 10/29/2024 8:30 AM EDT Office Visit Adult Medicine [address] [phone] Katie Gaytan MD Cellulitis and abscess of leg (Primary Dx) 10/26/2024 Anticoagulation - Warfarin Visit Coumadin [address] [phone] Shonna White LPN Personal history of DVT (deep vein thrombosis) (Primary Dx) 10/20/2024 10:10 AM EDT Office Visit [facility] [address] [facility] 102 [place] [phone] Radha Hudson NP Longstanding persistent atrial fibrillation (CMS/HCC V24, CMS/HCC V28) (Primary Dx); Chronic venous stasis; Chronic diastolic congestive heart failure (CMS/HCC V24, CMS/HCC V28); KIRILL (obstructive sleep apnea); Coronary artery disease involving [place] coronary artery of [place] heart without angina pectoris; Essential hypertension, benign; Pure hypercholesterolemia 10/20/2024 Telephone [facility] [address] [facility] 102 [place] [phone] Radha Hudson NP 10/20/2024 Telephone Vascular Surgery - [place] [address] [facility] 210 [place] [phone] Jeremiah Rodriguez [place] 10/12/2024 Anticoagulation - Warfarin Visit Coumadin [address] [phone] Shonna White LPN Personal history of DVT (deep vein thrombosis) (Primary Dx) 09/29/2024 Anticoagulation - Warfarin Visit Coumadin [address] [phone] Shonna White LPN Personal history of DVT (deep vein thrombosis) (Primary Dx) 09/22/2024 Anticoagulation - Warfarin Visit Coumadin [address] [phone] Shonna White LPN Personal history of DVT (deep vein thrombosis) (Primary Dx) 09/15/2024 Anticoagulation - Warfarin Visit Coumadin [address] [phone] Shonna White LPN Personal history of DVT (deep vein thrombosis) (Primary Dx) from Last 3 Months Immunizations Name Administration Dates Next Due H1N1 Inj Preservative Free 03/09/2009 Influenza trivalent, 0.5mL ( Fluad) 65yo and older 12/25/2021,01/02/2021,01/19/2019 Influenza trivalent, 0.5mL, preservative free (Fluarix; FluLaval; Fluzone) ages 6mo and older (Afluria) 3 years and older 01/16/2011,02/20/2010,01/14/2008,01/19,03/14/2006,01/31/2005 Influenza, Unspecified 01/02/2021,2017,02/05/2017,02/02,02/02/2015,01/24/2014,02/04/2012 Pfizer Covid-19 Bivalent, Or iginal + Ba.1 (Non-US Trademark COMIRNATelarm Bivalent) 12/25/2021 Pfizer SARS-CoV-2 COVID-19, mRNA, LNP-S, preservative free 01/20/2021 Pneumococcal conjugate 13 va lent (Prevnar 13, PCV13) 2mo and older 03/10/2018 Pneumococcal polysaccharide 23 valent (Pneumovax 23) 2yo and older 06/07/2019,04/17/2007 Td, Unspecified 02/04/2003 Tdap Tetanus diptheria acell ular pertussis (Boostrix; Adacel) 7yo and older 08/25/2024,03/04/2013 Zoster recombinant (Shingrix ) 19yo and older [...] (diabetes mellitus), type 2 with neurological complications ([facility] V24, [facility] V28) 09/01/2017 DX:DM (diabetes mellitus), t ype 2 with neurological complications ([facility]) Family History Medical History Relation Name Comments [...] Record ed Within the last 3 months, marycarmen montez many times did you visit the emergency [...] for your loved ones. For example, child nutrition director or elderly care for an older [...] Sign Reading Time Taken Comments Blood Pressure 119/70 11/09/2024 10:35 AM EDT Pulse 80 11/09/2024 10:35 AM EDT Temperature 36 C (96.8 F) 10/29/2024 8:48 AM EDT Respiratory Rate 20 10/29/2024 8:48 AM EDT Oxygen Saturation 99% 10/20/2024 10:06 AM EDT Inhaled Oxygen Concentration - - Weight 120 kg (264 lb) 11/09/2024 10:35 AM EDT Height 193 cm (6' 4 ) 11/09/2024 10:35 AM EDT Body Mass Index 32.14 11/09/2024 10:35 AM EDT Plan of Treatment Upcoming Encounters Date Type Department Care Team (Late st Contact Info) Description 12/24/2024 9:30 AM EDT Office Visit Adult Medicine [place] [facility] [place] [address] [place] [phone] Katie Gaytan MD [address] [place] [address] 12/31/2024 9:30 AM EDT Office Visit Vascular Surgery - [place] [address] [place] [address] Kimmie Denny PA [address] [facility] [address] [place] [address] 01/21/2025 8:40 AM EDT Office Visit [facility] [address] [facility] [address] [place] [address] Sarah Lee NP [address] [place] [phone] 03/30/2025 9:20 AM EST Office Visit Endocrinology - [place] [address] [place] [phone] Julia Oconnell PA [address] [place] [address] Health Maintenance Due Date Last Done Comments Depression Screening 04/21/2024 03/22/2024 COVID-19 Vaccine (7 - Pfizer risk 2023- season) 2024 01/27/2024, 01/10/2023, 08/08/2021, Additional history exists Diabetes: Annual Foot Exam 11/27/2024 11/28/2023 Influenza Vaccine (#1) 2024 , 12/27/2022, 12/25/2021, Additional history exists Diabetes: Annual Retina Eye Exam 02/23/2025 02/24/2024 Social Influencers of Health Screening 03/22/2025 03/22/2024 Falls Risk Assessment 03/24/2025 03/24/2024 Medicare Annual Wellness Visit 03/24/2025 03/24/2024 Diabetes: Blood Sugar Control Test (HGBA1C) 06/04/2025 12/02/2024, 06/21/2024, 03/17/2024, Additional history exists Diabetes: Annual Urine Albumin-Creatinine Ratio (uACR) 08/25/2025 08/25/2024, 06/21/2024, 08/12/2023 Diabetes: Annual GFR (Glomerular Filtration Rate) 12/02/2025 12/02/2024, 06/21/2024, 03/17/2024, Additional history exists Hypertension/CHF/CAD Annual BMP Blood Test 12/02/2025 12/02/2024, 06/21/2024, 03/17/2024, Additional history exists Colorectal Cancer Screening: Colonoscopy 06/10/2028 06/10/2018 Cholesterol Screening (Lipid Panel) 08/25/2029 08/25/2024, 05/20/2023 DTaP,Tdap,and Td Vaccines (4 - Td or Tdap) 08/25/2034 08/25/2024, 03/04/2013, 02/04/2003 Hepatitis C Screening Completed 03/13/2013 Zoster Vaccines Completed 03/08/2019, 11/12/2018 Pneumococcal Vaccine: 50+ Years Completed 06/07/2019, 03/10/2018, 04/17/2007 RSV Immunization Adult Patients Completed 03/10/2024 HIB [...] age to complete this topic Meningococcal B Vaccine Aged Out No l onger eligible based on patient's age to complete this topic RSV Immunization Patients Under 20 months Aged Out No longer eligible based on patient's age to complete this topic Varicella Vaccines Aged Out No longer eligible based on patient's age to complete this topic Procedures Procedure Name Priority Date/Time Associated Diagnosis Comments PROTHROMBIN TIME WITH INR 12/13/2024 PROTHROMBIN TIME WITH INR Routine 12/13/2024 VAS US DUPLEX LOWER EXT ARTERIES BILAT WITH NYDIA Routine 12/09/2024 11:32 AM EDT PAD (peripheral artery disease) (CMS/HCC V24) Ectasia of artery (CMS/HCC V24) PROTHROMBIN TIME WITH INR 12/06/2024 PROTHROMBIN TIME WITH INR Routine 12/06/2024 BASIC METABOLIC PANEL Routine 12/02/2024 9:29 AM EDT Chronic venous stasis Chronic diastolic congestive heart failure (CMS/HCC V24, CMS/HCC V28) B-TYPE NATRIURETIC PEPTIDE Routine 12/02/2024 9:29 AM EDT Chronic venous stasis Chronic diastolic congestive heart failure (CMS/HCC V24, CMS/HCC V28) HEMOGLOBIN A1C Routine 12/02/2024 7:55 AM EDT DM (diabetes mellitus), type 2 with neurological complications (CMS/HCC V24, CMS/HCC V28) DIGOXIN LEVEL Routine 12/02/2024 7:55 AM EDT Atrial fibrillation, unspecified type (CMS/HCC V24, CMS/HCC V28) PROTHROMBIN TIME WITH INR 11/29/2024 PROTHROMBIN TIME WITH INR Routine 11/29/2024 PROTHROMBIN TIME WITH INR 11/22/2024 PROTHROMBIN TIME WITH INR Routine 11/22/2024 PROTHROMBIN TIME WITH INR 11/15/2024 PROTHROMBIN TIME WITH INR Routine 11/15/2024 PROTHROMBIN TIME WITH INR 11/08/2024 PROTHROMBIN TIME WITH INR Routine 11/08/2024 CARDIAC HOLTER MONITOR (REPORT GENERATED IN HOUSE) Routine 11/01/2024 9:05 AM EDT Longstanding persistent atrial fibrillation (CMS/HCC V24, CMS/HCC V28) PROTHROMBIN TIME WITH INR 11/01/2024 PROTHROMBIN TIME WITH INR Routine 11/01/2024 PROTHROMBIN TIME WITH INR 10/26/2024 PROTHROMBIN TIME WITH INR Routine 10/26/2024 PROTHROMBIN TIME WITH INR 10/12/2024 PROTHROMBIN TIME WITH INR Routine 10/12/2024 PROTHROMBIN TIME WITH INR 09/29/2024 PROTHROMBIN TIME WITH INR Routine 09/29/2024 PROTHROMBIN TIME WITH INR 09/22/2024 PROTHROMBIN TIME WITH INR Routine 09/22/2024 PROTHROMBIN TIME WITH INR 09/15/2024 PROTHROMBIN TIME WITH INR Routine 09/15/2024 MICROALBUMIN CREATININE URINE RATIO Routine 08/25/2024 1:50 PM EDT Atrial fibrillation, unspecified type (CMS/HCC V24, CMS/HCC V28) Chronic diastolic congestive heart failure (CMS/HCC V24, CMS/HCC V28) Encounter for lipid screening for cardiovascular disease Encounter for screening for malignant neoplasm of prostate Encounter for screening for cardiovascular disorders Need for tetanus, diphtheria, and acellular pertussis (Tdap) vaccine LIPID PANEL WITH REFLEX TO DIRECT LDL Routine 08/25/2024 1:50 PM EDT Encounter for screening for cardiovascular disorders DIABETES FOOT EXAM Routine 11/28/2023 COLONOSCOPY Routine 06/10/2018 HEPATITIS C SCREENING Routine 03/13/2013 from Last 3 Months or Most Recently Relevant to Health Maintenance Results * Prothrombin time with INR (12/13/2024) Only the most recent of24 resultswithin the time period is included. us Provider [facility] BLOOD ORDERABLES Fin al Result * Vascular US duplex lower extremity arteries [...] PSV 64 cm/s CV VAS LAB Left RELEASE OF INFORMATION CLERK prox sys PSV 70 cm/s CV VAS [...] PSV 51 cm/s CV VAS LAB Right RELEASE OF INFORMATION CLERK prox sys PSV 77 cm/s CV VAS [...] The mid peroneal artery has triphasic flow. Latcher Details A reid scale, color and doppler analysis ultrasound was performed. During the study longitudinal views were obtained. Pulsed wave doppler was performed. us Talia ZIMMERMAN CV VASCULAR PROCEDURES Final Result * (ABNORMAL) B-type natriuretic peptide (12/02/2024 9:29 AM EDT) BNP 266(H) <=100 pcg/mL LAB CHEMISTRY METHOD 12/02/2024 11:50 AM [facility] Blood Venous blood specimen / Unknown Venipuncture / Unknown 12/02/2024 9:29 AM EDT 12/02/2024 9:29 AM EDT us Sarah Lee CASINO GAMING WORKER LAB BLOOD ORDERABLES Final Resu lt [facility] [address] [place] [address], [place] [phone] * (ABNORMAL) Basic metabolic panel (12/02/2024 9:29 AM EDT) Sodium 139 133 - 145 mmol/L LAB CHEMISTRY METHOD 12/02/2024 12:42 PM [facility] Potassium 4.2 3.5 - 5.5 mmol/L LAB CHEMISTRY METHOD 12/02/2024 12:42 PM [facility] Chloride 103 96 - 110 mmol/L LAB CHEMISTRY METHOD 12/02/2024 12:42 PM [facility] CO2 32 21 - 32 mmol/L LAB CHEMISTRY METHOD 12/02/2024 12:42 PM [facility] Anion Gap 4 3 - 11 LAB CHEMISTRY METHOD 12/02/2024 12:42 PM [facility] Glucose 216(H) 70 - 100 mg/dL LAB CHEMISTRY METHOD 12/02/2024 12:42 PM [facility] BUN 17 5 - 25 mg/dL LAB CHEMISTRY METHOD 12/02/2024 12:42 PM [facility] Creatinine 0.98 0.70 - 1.30 mg/dL LAB CHEMISTRY METHOD 12/02/2024 12:42 PM [facility] eGFR 82 >=60 mL/min/1. 73m2 LAB CHEMISTRY METHOD 12/02/2024 12:42 PM [facility] Comment:Calculation based on the Chronic Kidney Disease Epidemiology Collaboration (CKD-EPI) equation refit without adjustment for race. BUN/Creatinine Ratio 17.3 LAB CHEMISTRY METHOD 12/02/2024 12:42 PM EDT [facility] Calcium 8.6 8.5 - 10.5 mg/dL LAB CHEMISTRY METHOD 12/02/2024 12:42 PM EDT [facility] Blood Venous blood specimen / Unknown Venipuncture / Unknown 12/02/2024 9:29 AM EDT 12/02/2024 9:29 AM EDT us Sarah Lee CASINO GAMING WORKER LAB BLOOD ORDERABLES Final Resu lt Performing Organization Address [facility]/ZIP Co de Phone Number [facility] [address] [place] [address], [place] [phone] * (ABNORMAL) Hemoglobin A1c (12/02/2024 7:55 AM EDT) Hemoglobin A1C 6.8(H) <6.5 % LAB CHEMISTRY METHOD 12/02/2024 11:37 AM EDT [facility] Mean Bld Glu Estim. 148 mg/dL LAB CHEMISTRY METHOD 12/02/2024 11:37 AM EDT [facility] Blood Venous blood specimen / Unknown Venipuncture / Unknown 12/02/2024 7:55 AM EDT 12/02/2024 7:55 AM EDT us Julia ZIMMERMAN LAB BLOOD ORDERABLES Final Resul t Performing Organization Address [facility]/ZIP Co de Phone Number [facility] [address] [place] [address], [place] [phone] * (ABNORMAL) Digoxin level (12/02/2024 7:55 AM EDT) Digoxin Lvl 0.3(L) 0.5 - 2.0 ng/mL LAB CHEMISTRY METHOD 12/02/2024 11:16 AM EDT [facility] Blood Venous blood specimen / Unknown Venipuncture / Unknown 12/02/2024 7:55 AM EDT 12/02/2024 7:55 AM EDT Radha Hudson NP LAB BLOOD ORDERABLES Final Resu lt [facility] [address] [place] [address], * CARDIAC HOLTER MONITOR (REPORT GENERATED IN HOUSE) (11/01/2024 9:05 AM EDT) Anatomical Region Laterality Modality Cardiac Diagnost ic Narrative 11/03/2024 7:[address] [facility]PART[facility] [address] [place] [id number] TEL: FAX: Type of Test: 24 Hour Holter Monitor Date of Test: 11/01/2024 Ordering Provider: Radha Hudson NP Reason for Test: Longstanding persistent atrial fibrillation PVCA Hydraulic Press In Operator Findings: 1: Atrial Fibrillation noted throughout recording. 2: Ventricular rate range was 41-104 bpm with an average of 74 bpm. 3: Occasional PVCs. Rare couplets and ventricular bigeminy. 4: No significant pauses noted, longest R-R was 2.3 seconds at 4:35 PM. 5: Diary returned with no symptoms noted. Impression: Persistent atrial fibrillation with excellent rate control and average heart rate of 74 bpm. Occasional PVCs. Radha Hudson NP CV CARDIAC SERVICES PROCEDURES Final Result * (ABNORMAL) Lipid panel with reflex to direct LDL (08/25/2024 1:50 PM EDT) Cholesterol 99 0 - 200 mg/dL LAB CHEMISTRY METHOD 08/25/2024 6:50 PM EDT [facility] Triglycerides 134 0 - 150 mg/dL LAB CHEMISTRY METHOD 08/25/2024 6:50 PM EDT [facility] HDL 39(L) >=40 mg/dL LAB CHEMISTRY METHOD 08/25/2024 6:50 PM EDT [facility] LDL Calculated 33 0 - 100 mg/dL LAB CHEMISTRY METHOD 08/25/2024 6:50 PM EDT [facility] VLDL Cholesterol Aramis 26.8 mg/dL LAB CHEMISTRY METHOD 08/25/2024 6:50 PM EDT [facility] Non HDL Chol. (LDL+VLDL) 60 <145 mg/dL LAB CHEMISTRY METHOD 08/25/2024 6:50 PM EDT [facility] Chol/HDL Ratio 2.5 0.0 - 4.4 LAB CHEMISTRY METHOD 08/25/2024 6:50 PM EDT [facility] Blood Venous blood specimen / Unknown Venipuncture / Unknown 08/25/2024 1:50 PM EDT 08/25/2024 1:50 PM EDT us Jose Armando Oakley CASINO GAMING WORKER LAB BLOOD ORDERABLES Final R esult [facility] [address] [place] [address], * (ABNORMAL) Microalbumin creatinine urine ratio (08/25/2024 1:50 PM EDT) Creatinine, Urine 103.0 mg/dL LAB CHEMISTRY METHOD 08/25/2024 6:51 PM EDT [facility] Microalb, Ur 121.0(H) 0.0 - 29.0 mg/L LAB CHEMISTRY METHOD 08/25/2024 6:51 PM EDT [facility] Microalb/Crea t Ratio 117(H) <30 mg/g creat LAB CHEMISTRY METHOD 08/25/2024 6:51 PM EDT [facility] Urine Urine specimen obtained by clean catch procedure / Unknown Non-blood Collection / Unknown 08/25/2024 1:50 PM EDT 08/25/2024 1:50 PM EDT Jose Armando Oakley CASINO GAMING WORKER LAB URINE ORDERABLES Final [facility] esult [facility] [address] [place] [address], [place] [phone] * Diabetes Foot Exam (11/28/2023) [facility]ologist [facility] Diabetes: Annual Foot Exam Abstracted Historical Provider HEALTH MAINTENANCE Final Result * Colonoscopy (06/10/2018) [facility]ologist [facility] Colonoscopy No interpreta tion,abstr acted Anatomical Region Laterality Modality Other Historical Provider HEALTH MAINTENANCE Final Result * Hepatitis C Screening (03/13/2013) [facility]ologist [facility] Hepatitis C Screening Abstracted Historical Provider HEALTH MAINTENANCE Final Result from Last 3 Months or Most Recently Relevant to Health Maintenance Insurance [employer] MEDICARE Care Teams Regional Vice President Life Sales Relationship Specialty Start Date End Date Katie Gaytan MD [address] [place] [id number] PCP - General 02/18/1999
--- OUTSIDE RECORDS SUMMARY | 2024-12-14 12:02 | XMS_ITS | Encounter Summary ---
Author Organization [facility] Address [address] [place] [address] Care Team Providers Care Brake Repair Mechanic Name Role Phone Katie Gaytan MD Primary Care Provider [phone] Yovany Giles MD Unavailable Nyla Grullon NP Unavailable Unavailable Reason for Visit * Reason Onset Date Comments REFERRAL 09/01/2017 DR BROWN [phone] Encounter Details Date Type Department Care Team Description 09/01/2017 Telephone Adult Medicine [address] [id number] Katie Gaytan MD [address] [place] [address] [phone] REFERRAL (DR BROWN [phone]) Social History Tobacco Use Types Packs/Day Years [...] encounter Miscellaneous Notes * Telephone Encounter - Esther Guillen - 09/01/2017 10:35 AM EDT No insurance referral required per patient's insurance. [facility] PPO * Telephone Encounter - Lauren Loya - 09/01/2017 9:50 AM EDT What insurance does the patient have today? Payor: [facility] / [facility]$20/$45 [facility] / Product Type: PPO [id number] Effective 01/19/09: [employer] will not retro referral requests over 90 days. If request is for this please instruct patient to call the 800# on their insurance card to appeal. Do not submit a request. Referrals cannot be processed if the insurance is not accurate. If the insurance listed above in red is NO BILLING INFORMATION FOUND FOR THIS ENCOUTNER The patients correct insurance must be obtained and registered in [facility] or their referral can not be processed. Is this a retro request? NO If yes for what date of service do you need the retro referral? NO Who is calling to request this referral? SELF If the caller is not the patient, what is their name? N/A Ask the patient WHO referred them to this specialty: Not an initial visit; it is for follow up/continuation of care. Patients PCP is DR GAYTAN FIRST and LAST NAME of SPECIALIST PATIENT is seeing: DR BROWN What specialty is this? PODIATRY DIAGNOSIS Patient is being seen for (Not a body part or a procedure): DIABETIC EXAM Have you seen this SPECIALIST for this PROBLEM/DX before?NO If YES, when: Have you checked REVIEW or the APPT DESK to see if this referral has already been done or has visits left? YES Is this visit:Initial Visit Address of Specialist:[address] [place] [id number] Phone # of Specialist:[phone] Fax #: (if applicable): Does patient have an appointment scheduled?: YES Date of appointment- (including a retro-request): 09/01/2017 Is this appointment related to: Not MVA, WC or Surgery related documented in this encounter Plan of Treatment Not on file documented as of this encounter Visit Diagnoses Not on filedocumented in this encounter Care Teams Brake Repair Mechanic Relationship Specialty Start Date End Date Katie Gaytan MD [address] [place] [id number] PCP - General 02/18/1999 Yovany Giles MD [address] [place] [address] Specialist Cardiology 08/12/22 Nyla Grullon NP [address] [place] [address] Cardiology 12/02/22 documented as of this encounter
--- OUTSIDE RECORDS SUMMARY | 2024-12-14 12:03 | XMS_ITS | Encounter Summary ---
Author Organization [facility] Address [address] [place] [address] Care Team Providers Care Machinist Tool And Die Name Role Phone Katie Gaytan MD Primary Care Provider [phone] Yovany Giles MD Unavailable Nyla Grullon NP Unavailable Unavailable Encounter Details Date Type Department Care Team Description 04/01/2023 Orders Only Medical Records [address] [place] [id number] [facility] Social History Tobacco Use Types Packs/Day [...] Name Priority Date/Time Associated Diagnosis Comments OUTSIDE CT Routine 03/24/2023 documented in this encounter Results * OUTSIDE CT (03/24/2023) [facility] RADIOLOGY documented in this encounter Visit Diagnoses Not on filedocumented in this encounter Care Teams Machinist Tool And Die Relationship Specialty Start Date End Date Katie Gaytan MD [address] [place] [phone] PCP - General 02/18/1999 Yovany Giles MD [address] [place] [address] Specialist Cardiology 08/12/22 Nyla Grullon NP [address] [place] [address] Cardiology 12/02/22 documented as of this encounter
--- OUTSIDE RECORDS SUMMARY | 2024-12-14 12:03 | XMS_ITS | Encounter Summary ---
Author Organization [facility] Address [address] [place] [address] Care Team Providers Care Dowel Pointer Name Role Phone Katie Gaytan MD Primary Care Provider [phone] Yovany Giles MD Unavailable Nyla Grullon NP Unavailable Unavailable Reason for Visit * Reason Comments E-prescribe Rx Request Encounter Details Date Type Department Care Team Description 03/08/2019 Refill Adult Medicine [address] [phone] Katie Gaytan MD [address] [place] [address] [phone] E-prescribe Rx Request Social History Tobacco Use [...] Telephone Encounter - Kristina Hannah M.A. - 03/08/2019 4:28 PM EST Lab Results Component Value Date NA 141 02/25/2018 K 4.2 02/25/2018 CO2 30.2 02/25/2018 CL 101 02/25/2018 BUN 11 02/25/2018 CREAT 0.8 02/25/2018 GLU 149 03/09/2009 CA 9.3 02/25/2018 GFR > 60 02/25/2018 Pending ov with oco 03/12/19 * Telephone Encounter - April Banda - 03/08/2019 3:47 PM EST Patient would like script to be: E-PRESCRIBED/FAXED TO PHARMACY WHEN WAS THE PATIENT'S LAST APPOINTMENT IN ADULT MEDICINE? 10/05/18 WHEN WAS THE LAST TIME THE PATIENT SAW THEIR PCP? 08/10/18 Does patient have an upcoming appointment? Yes 03/12/19 (THE MEDICATION REQUESTED IS ON THE MED [...] N/A Patients current insurance carrier is: Payor: [facility] / Plan: [facility] MEDICARE COMPLETE $15/$45 [facility] [id number] / Product Type: PPO [id number] documented in this encounter Plan of Treatment Not on file documented as of this encounter Visit Diagnoses Not on filedocumented in this encounter Care Teams Dowel Pointer Relationship Specialty Start Date End Date Katie Gaytan MD [address] [place] [id number] PCP - General 02/18/1999 Yovany Giles MD [address] [place] [id number] Specialist Cardiology 08/12/22 Nyla Grullon NP [address] [place], [place] [id number] Cardiology 12/02/22 documented as of this encounter
--- OUTSIDE RECORDS SUMMARY | 2024-12-14 12:03 | XMS_ITS | Clinical Summary ---
Author Organization [facility] Address [address] [place] [address] Care Team Providers Care Rn Plastic Surgery Name Role Phone Katie Gaytan MD Primary Care Provider [phone] Yovany Giles MD Unavailable Nyla Grullon NP Unavailable Unavailable Allergies Active Allergy Reactions Severity Noted Date Comments Lanolin Alcohol Rash/Dermatitis 04/17/2007 Allergic to wool causes rash Other (No Interaction Warnings) 02/03/2023 Other reaction(s): Hives Peanut-Derived 04/02/2023 Peanuts Hives/Urticaria 04/16/2006 Medications Medication Sig Dispensed Refills Start Date End Date Status ONE TOUCH ULTRASMARTIndicatio ns:Type II or unspecified type diabetes mellitus without mention of complication, not stated as uncontrolled glucometer for bid 0 Acti ve ONE TOUCH ULTRA TEST STRPIndications:Typ e II or unspecified type diabetes mellitus without mention of complication, not stated as uncontrolled to test bid and prn 200 1 2006 Active ONE TOUCH ULTRASOFT LANCETS MISCIndications:Typ e II or unspecified type diabetes mellitus without mention of complication, not stated as uncontrolled to test BID and prn 200 1 2006 Active Continuous Blood Gluc Budget Specialist (FreeStyle Pat 2 [place]) Device 1 Device by Does not apply route continuous. 1 Each 0 12/16/2022 Active ammonium lactate (AMLACTIN) 12 % cream Apply topically 2 times daily as needed. 0 Active finasteride (PROSCAR) 5 MG tablet Take 1 Tablet by mouth daily. 0 Active tamsulosin (FLOMAX) 0.4 MG 24 hr capsule Take 1 Capsule by mouth daily. Take 30 mins after same meal every day. 0 Active diltiazem (CARDIZEM) 120 MG tablet Take 1 Tablet by mouth daily. 90 Tablet 3 05/21/2023 Active digoxin (LANOXIN) 250 MCG tablet TAKE 1 TABLET BY MOUTH DAILY. 90 Tablet 2 07/08/2023 Active folic acid (FOLVITE) 1 MG tablet TAKE ONE TABLET BY MOUTH ONCE DAILY 90 Tablet 1 09/23/2023 Active HumaLOG 100 UNIT/ML SolutionIndications :DM (diabetes mellitus), type 2 with neurological complications (HCC) FOR USE IN V-GO 20 SUBCUTANEOUS INSULIN DELIVERY SYSTEM FOR MAX 55 UNITS/DAY. 20 mL 5 09/29/2023 Active Trulicity 1.5 MG/0.5ML Solution Pen-injectorIndicat ions:DM (diabetes mellitus), type 2 with neurological complications (HCC) INJECT 1.5 MILLIGRAMS SUBCUTANEOUSLY ONCE A WEEK DIRECTED 2 mL 5 09/29/2023 Active metoprolol (LOPRESSOR) 100 MG tablet TAKE 1 TABLET BY MOUTH TWO TIMES A DAY 60 Tablet 6 12/03/2023 Active Continuous Glucose Sensor (FreeStyle Pat 2 Sensor) [facility] [place] USE DIRECTED TO CHECK BLOOD GLUCOSE EVERY 14 DAYS 2 Each 11 12/16/2023 Active atorvastatin (LIPITOR) 40 MG tablet TAKE ONE TABLET BY MOUTH ONCE DAILY 90 Tablet 1 12/18/2023 Active warfarin (COUMADIN) 5 MG tablet TAKE 1 TO 2 TABLETS BY MOUTH ONCE DAILY. MAY CAUSE HEAVY BLEEDING AND TAKE AT THE SAME TIME EVERY DAY. DO NOT CHANGE DIETARY HABITS 180 Tablet 0 12/18/2023 Active Insulin Disposable Pump (V-Go 20) 20 UNIT/24HR Kit CHANGE POD DAILY, USE 4-6 CLICKS PER MEAL 30 Kit 1 12/30/2023 Active clopidogrel (PLAVIX) 75 MG tablet TAKE ONE TABLET BY MOUTH ONCE DAILY 90 Tablet 3 12/31/2023 Active furosemide (LASIX) 20 MG tablet TAKE ONE TABLET BY MOUTH ONCE DAILY 90 Tablet 1 02/02/2024 Active metformin (GLUCOPHAGE-XR) 500 MG 24 hr tablet TAKE ONE TABLET BY MOUTH TWO TIMES A DAY WITH FOOD 60 Tablet 2 02/10/2024 Active Active Problems Patient Care Coordination No te Formatting of this note is d ifferent from the original. Checking Your Blood Sugars Please check your blood sugars every day. Please check your sugars at the following times of day: before breakfast, before lunch, before dinner and before bedtime Your Blood [...] Often to Assess Component Value Date HGBA1C 11.6 06/12/2011 Less than 7%--- 2-4 times per year BP Readings from Last 1 Encounters: 06/13/11 120/70 Less than 130/80--- once per year Component Value Date LDL 117 06/12/2011 LDL less than 100--- once per year Component Value Date MALBUR 43.7 01/23/2011 Less than 30--- once per year Wt Readings from Last 1 Encounters: 06/13/11 319 lb 3.2 oz (144.788 kg) Your goal weight by next visit: 300 --- reassess 2-4 times a year Health Maintenance Due Topic Date Due Diabetes: Annual Care Plan 1968 Diabetes: Annual Foot Exam 03/28/2011 Your Action Plan Check blood glucose as directed and write down all results. Check feet for sores every day Continue to work on weight loss with a goal of losing 2-4 pounds per month I am sending you to see an sugar specialist for a second opinion When to Call your Healthcare Provider If [...] just unsure what to do Educational Resources [place] Diabetes [employer] (www.diabetes.org) Centers for Disease Control and Prevention (www.cdc.gov/diabetes) This care plan was created in collaboration with Randy Tan on 06/13/2011 Problem Noted Date Sepsis 05/16/2023 Hypotension 05/16/2023 Urinary tract infection with hematuria 0 04/30/2023 Overview: Urosepsis, please see note 04/30/23, obstructive uropathy likely from BPH, requiring prolonged Julio cath/bag. Following with urology Dr. Michael Rutledge CAD (coronary artery disease) 02/25/2023 Last Assessment & Plan: Status post PCI of diagonal in November 2022. Will continue Plavix until November of this year. Lipid profile is at target. CHF (congestive heart failure) Last Assessment & Plan: Does not appears significant volume overloaded by physical exam although with chronic venous insufficiency. JVP was not elevated. Will check BNP. Will schedule cardiac PYP scan. History of cardiac catheterization 01/03 Overview: Done on 12/03/2022 at [facility] indications:Cardiomyopathy Cardiomyopathy 10/25/2022 Last Assessment & Plan: Left ventricular systolic function was reported to be normal from outside echo report. Does have a LVH. Will rule out amyloidosis. Tremor 10/24/2022 Decreased cardiac ejection fraction 07/0 09/2022 Chest pain 10/16/2022 Chronic venous stasis 10/21/2019 Atrial fibrillation 09/05/2017 Last Assessment & Plan: Rate appears normal. Is on triple therapy including high-dose metoprolol, low- dose diltiazem and digoxin. Will check dig level. 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 Pulliam Unspecified venous (peripheral) insuffic iency 05/23/2006 Type 2 diabetes, uncontrolled, with bisi montes 05/29/2005 Last Assessment & Plan: Checking Your Blood [...] year Health Maintenance Due Topic Date Due Adult Immunization: Zostavax For Patients Over 60 2012 Diabetes: Annual Care Plan 06/16/2013 Adult Immunization: Influenza For High Risk Patients 12/20/2013 Diabetes: Blood Sugar Control Test (Hgba1c) 01/18/2014 Your Action Plan Check blood glucose as directed and write down all results. Contact me if you experience any barriers to care such as inability to purchase your medication, difficulty getting to your appointments or difficulty understanding your care plan make sure you continue to follow with your specilaist at [facility], and get me the record. [...] just unsure what to do Educational Resources [place] [employer] (www.diabetes.org) Centers for Disease Control and Prevention (www.cdc.gov/diabetes) This care plan was created in collaboration with Randy Tan on 02/14/2014 Morbid obesity 05/29/2005 Esophageal reflux 05/29/2005 Overview: The patient underwent upper GI endoscopy 08.30.05 at [facility] for the evaluation of reflux and everything was normal. No evidence of reflux esophagitis. 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 No colon cancer screening necessary until 2015. Colonoscopy 05/18/15 - Dr Contreras @ [facility]. 4 polyps - all adenomas rpt 3 yrs Lipoma of other specified sites 05/29/2005 03/18/2017 Immunizations Name Administration Dates Next Due COVID-19 (Pfizer) 08/08/2021,,07/20/2020,06/29 Covid-19 Bivalent (Pfizer) 12/25/2021 Influenza (> 6 Months) 01/16/2011,2009,01/14/2008,01/19,03/14/2006,01/31/2005 Influenza Flu (PT Reported) 01/02/2021,0 12/18/2017,02/05/2017,02/02,02/02/2015,01/24/2014,02/04/2012 Influenza H1N1 Pandemic Flu Vaccine 03/09/2009 Influenza vaccine high dose age 65 and over 12/25/2021,01/02/2021,01/19/2019 Pneumoccoccal(Adult) Polysac charide PPSV23 06/07/2019,04/17/2007 Pneumococcal Conjugate PCV-13 03/10/2018 Shingrix (Patient reported) 03/08/2019 TETANUS/DIPTHERIA (ADULT) 02/04/2003 Tdap 03/04/2013 Family History Medical History Relation Name Comments No Known Problems Aunt No Known Problems Brother No Known Problems Father No Known Problems Maternal Grandfather No Known Problems Maternal Grandmother No Known Problems Mother No Known Problems Other No Known Problems Paternal Grandfather No Known Problems Paternal Grandmother No Known Problems Sister No Known Problems Uncle Blindness Negative Hx Cataract Negative Hx Glaucoma Negative Hx Macular Degeneration Negative Hx Strabismus Negative Hx Relation Name Status Comments Aunt Brother [...] file Not on file Not on file Last Filed Vital Signs Vital Sign Reading Time Taken Comments Blood Pressure 99/67 02/16/2024 11:36 AM EDT Pulse 58 02/16/2024 11:36 AM EDT Temperature 37.2 C (98.9 F) 02/16/2024 11:36 AM EDT Respiratory Rate 16 11/11/2023 9:09 AM EDT Oxygen Saturation 98% 02/16/2024 11:36 AM EDT Inhaled Oxygen Concentration - - Weight 115.2 kg (254 lb) 02/16/2024 11:36 AM EDT Height 193 cm (6' 4 ) 02/16/2024 11:36 AM EDT Body Mass Index 30.92 02/16/2024 11:36 AM EDT Plan of Treatment Health Maintenance Due Date Last Done Comments COLON CANCER SCREENING 06/10/2021 9 (External Completion), 05/18/2015, 11/13/2005 (No reason specified) DTAP/TDAP/TD (2 - Td or Tdap) 03/04/2023 03/04/2013 Covid-19 Vaccine (6 - 2022-2 4 season) 2023 12/25/2021, 08/08/2021, 01/20/2021, Additional history exists DIABETES: BLOOD SUGAR CONTRO L TEST (HGBA1C) 02/11/2024 11/11/2023, 08/12/2023, 08/12/2023, Additional history exists BMI CHECK/ADVISE 04/21/2024 11/11/2023, , 06/10/2023, Additional history exists DIABETES/HEART DISEASE: [place] CHOLESTEROL (LDL) 05/20/2024 05/20/2023, 05/22/2022, 09/06/2021, Additional history exists DIABETES: ANNUAL URINE PROTE IN TEST (MICROALBUMIN) 08/11/2024 08/12/2023, 05/22/2022, 09/06/2021, Additional history exists DIABETES: ANNUAL FOOT EXAM 11/27/202411/27, 09/19/2023, 07/16/2023, Additional history exists INFLUENZA (#1) 2024 12/25/2021, 12/20, 01/02/2021, Additional history exists DIABETES: ANNUAL EYE EXAM 02/16/20252023, 03/25/2022, 01/24/2022 (External Completion), Additional history exists HEPATITIS C SCREENING Completed 03/13/2013 SHINGLES VACCINE Completed 03/08/2019, 11/12/2018 PNEUMOCOCCAL VACCINE Completed 06/07/2019, 03/10/2018, 04/17/2007 Care Teams Rn Plastic Surgery Relationship Specialty Start Date End Date Katie Gaytan MD [address] [place] [address] PCP - General 02/18/1999 Yovany Giles MD [address] [place] [address] Specialist Cardiology 08/12/22 Nyla Grullon NP [address] [place] [address] Cardiology 12/02/22
--- OUTSIDE RECORDS SUMMARY | 2024-12-14 12:03 | XMS_ITS | Encounter Summary ---
Author Organization [facility] Address [address] [place] [address] Care Team Providers Care Child Advocate Name Role Phone Katie Gaytan MD Primary Care Provider [phone] Encounter Details Date Type Department Care Team (Latest Contact Info) Description 12/13/2024 Anticoagulation - Warfarin Visit [facility] [address] [phone] Latasha Deleon LPN Personal history of DVT [...] your loved ones. For example, child care nurse or elderly care for an older [...] 9:30 AM EDT Office Visit Adult Medicine [address] [phone] Katie Gaytan MD [address] [place] [address] 12/31/2024 9:30 AM EDT Office Visit [facility] [address] [place] [address] Kimmie Denny PA [address] [place] [address] 01/21/2025 8:40 AM EDT Office Visit [facility] [address] [place] [address] Sarah Lee NP [address] [place] [address] 03/30/2025 9:20 AM EST Office Visit Endocrinology [facility] [address] [place] [address] Julia Oconnell PA [address] [place] [address] documented as of this encounter Procedures Procedure Name Priority Date/Time Associated Diagnosis Comments PROTHROMBIN TIME WITH INR Routine 12/13/2024 documented in this encounter Results * Prothrombin time with INR (12/13/2024) INR 2.5 Prothrombin Time POC Blood Venous blood specimen / Unknown 12/13/2024 Katie Gaytan MD LAB BLOOD ORDERABLES Final [...] documented as of this encounter Care Teams Child Advocate Relationship Specialty Start Date End Date Katie Gaytan MD [address] [place] [address] PCP - General 02/18/1999 documented as of this encounter
--- OUTSIDE RECORDS SUMMARY | 2024-12-14 12:03 | XMS_ITS | Encounter Summary ---
Author Organization [facility] Address [address] [place] [address] Care Team Providers Care Catering Sous Chef Name Role Phone Katie Gaytan MD Primary Care Provider [phone] Yovany Giles MD Unavailable Nyla Grullon NP Unavailable Unavailable Encounter Details Date Type Department Care Team Description 04/02/2023 Hospital Medical Records [address] [place] [phone] Melanie Bonds Social History Tobacco Use Types [...] on filedocumented in this encounter Care Teams Catering Sous Chef Relationship Specialty Start Date End Date Katie Gaytan MD [address] [place] [address] [phone] PCP - General 02/18/1999 Yovany Giles MD [address] [place] [address] [phone] Specialist Cardiology 08/12/22 Nyla Grullon NP [address] [place] [address], [place] [address] Cardiology 12/02/22 documented as of this encounter
--- OUTSIDE RECORDS SUMMARY | 2024-12-14 12:03 | XMS_ITS | Encounter Summary ---
Author Organization [facility] Address [address] [place] [address] Care Team Providers Care Supervisor Rod Placing Name Role Phone Katie Gaytan MD Primary Care Provider [phone] Yovany Giles MD Unavailable Nyla Grullon NP Unavailable Unavailable Encounter Details Date Type Department Care Team Description 09/26/2023 Orders Only Medical Records [address] [place] [address] Fern Tabares DPM Social History Tobacco Use [...] Associated Diagnosis Comments OUTSIDE FOOT EXAM Routine 09/19/2023 documented in this encounter Results * OUTSIDE FOOT EXAM (09/19/2023) Fern Tabares DPM PERFORMABLES documented in this encounter Visit Diagnoses Not on filedocumented in this encounter Care Teams Supervisor Rod Placing Relationship Specialty Start Date End Date Katie Gaytan MD [address] [place] [address] PCP - General 02/18/1999 Yovany Giles MD [address] [place] [address] Specialist Cardiology 08/12/22 Nyla Grullon, TAMAR [address] [place] [address] Cardiology 12/02/22 documented as of this encounter
--- OUTSIDE RECORDS SUMMARY | 2024-12-14 12:03 | XMS_ITS | Encounter Summary ---
Author Organization [facility] Address [address] [place] [address] Care Team Providers Care Refinery Operator Visbreaking Name Role Phone Katie Gaytan MD Primary Care Provider [phone] Yovany Giles MD Unavailable Nyla Grullon NP Unavailable Unavailable Reason for Visit * Reason Onset Date Comments Faxed Refill 06/06/2020 Encounter Details Date Type Department Care Team Description 06/06/2020 Refill Adult Medicine [address] [phone] Katie Gaytan MD [address] [place] [address] [phone] Faxed Refill Social History Tobacco Use Types [...] Telephone Encounter - Catrina Gonsalves M.A. - 06/06/2020 2:00 PM EST Last ov 02/15/20 Next ov 06/26/20 * Telephone Encounter - Kamilah Juárez - 06/06/2020 1:16 PM EST Patient would like script to be: E-PRESCRIBED/FAXED TO PHARMACY WHEN WAS THE PATIENT'S LAST APPOINTMENT IN ADULT MEDICINE? 02/15/2020 WHEN WAS THE LAST TIME THE PATIENT SAW THEIR PCP? Same as above Does patient have an upcoming appointment? Yes 06/26/2020 (THE MEDICATION REQUESTED IS ON THE MED [...] N/A Patients current insurance carrier is: Payor: [facility] / Plan: AARP MEDICARE COMPLETE $15/$45 [facility] [place] [id number] / Product Type: PPO [id number] documented in this encounter Plan of Treatment Not on file documented as of this encounter Visit Diagnoses Not on filedocumented in this encounter Care Teams Refinery Operator Visbreaking Relationship Specialty Start Date End Date Katie Gaytan MD [address] [place], [place] [phone] PCP - General 02/18/1999 Yovany Giles MD [address] [place] [address] Specialist Cardiology 08/12/22 Nyla Grullon NP [address] [place] [address] Cardiology 12/02/22 documented as of this encounter
--- OUTSIDE RECORDS SUMMARY | 2024-12-14 12:03 | XMS_ITS | Encounter Summary ---
Author Organization [facility] Address [address] [place] [address] Care Team Providers Care Pipeline Gang Supervisor Name Role Phone Katie Gaytan MD Primary Care Provider [phone] Yovany Giles MD Unavailable Nyla Grullon NP Unavailable Unavailable Reason for Visit * Reason Comments E-prescribe Rx Request Encounter Details Date Type Department Care Team Description 09/27/2023 Refill Adult Medicine [address] [phone] Katie Gaytan MD [address] [place] [address] [phone] E-prescribe Rx Request Social History Tobacco Use [...] uncontrolled documented in this encounter Care Teams Pipeline Gang Supervisor Relationship Specialty Start Date End Date Katie Gaytan MD [address] [place] [address] PCP - General 02/18/1999 Yovany Giles MD [address] [place] [address] Specialist Cardiology 08/12/22 Nyla Grullon NP [address] [place] [address] Cardiology 12/02/22 documented as of this encounter
--- OUTSIDE RECORDS SUMMARY | 2024-12-14 12:03 | XMS_ITS | Encounter Summary ---
Author Organization [facility] Address [address] [place] [address] Care Team Providers Care Seamless Tube Mill Operator Name Role Phone Katie Hernandez MD Primary Care Provider [phone] Yovany Giles MD Unavailable Nyla Grullon IBM BPM ARCHITECT Unavailable Unavailable Reason for Visit * Reason Onset Date Comments Follow-up Appt Unavailable 10/06/2013 Encounter Details Date Type Department Care Team Description 10/06/2013 Telephone Adult Medicine [address] [phone] Katie Hernandez MD [address] [place] [address] [phone] Follow-up Appt Unavailable Social History Tobacco Use [...] on filedocumented in this encounter Care Teams Seamless Tube Mill Operator Relationship Specialty Start Date End Date Katie Hernandez MD [address] [place] [address] PCP - General 02/18/1999 Yovany Giles MD [address] [place] [address] Specialist Cardiology 08/12/22 Nyla Grullon NP [address] [place] [address] Cardiology 12/02/22 documented as of this encounter
--- OUTSIDE RECORDS SUMMARY | 2024-12-14 12:03 | XMS_ITS | Encounter Summary ---
Author Organization [facility] Address [address] [place] [address] Care Team Providers Care Car Supervisor Name Role Phone Katie Gaytan MD Primary Care Provider [phone] Yovany Giles MD Unavailable Nyla Grullon NP Unavailable Unavailable Reason for Visit * Reason Comments E-prescribe Rx Request Encounter Details Date Type Department Care Team Description 02/10/2024 Refill Endocrinology - [address] [address] Julia Oconnell PA-C [address] [place] [address] [phone] E-prescribe Rx Request Social History Tobacco Use [...] encounter Miscellaneous Notes * Telephone Encounter - Loan Finn M.A. - 02/10/2024 4:18 PM EDT Jenna 11/14/23 Ov 03/16/24 Lab Results Component Value Date HGBA1C 7.3 11/11/2023 MALBUR 102.0 08/12/2023 MALBCR 65.8 08/12/2023 CHOL 94 05/20/2023 LDL 43 05/20/2023 HDL 40 05/20/2023 TRIG 59 05/20/2023 GLU 105 11/11/2023 CREAT 1.00 11/11/2023 documented in this encounter Plan of Treatment Not on file documented as of this encounter Visit Diagnoses Not on filedocumented in this encounter Care Teams Car Supervisor Relationship Specialty Start Date End Date Katie Gaytan MD [address] [place] [address] PCP - General 02/18/1999 Yovany Giles MD [address] [place] [address] Specialist Cardiology 08/12/22 Nyla Grullon NP [address] [place] [address] Cardiology 12/02/22 documented as of this encounter
--- OUTSIDE RECORDS SUMMARY | 2024-12-14 12:03 | XMS_ITS | Encounter Summary ---
Author Organization [facility] Address [address] [place] [address] Care Team Providers Care Proposal Lead Writer Name Role Phone Katie Gaytan MD Primary Care Provider [phone] Yovany Giles MD Unavailable Nyla Grullon NP Unavailable Unavailable Reason for Visit * Reason Comments E-prescribe Rx Request Encounter Details Date Type Department Care Team Description 06/19/2020 Refill Adult Medicine [address] [phone] Katie Gaytan MD [address] [place] [address] [phone] E-prescribe Rx Request Social History Tobacco Use [...] Patients current insurance carrier is: Payor: [facility] / Plan: AARP MEDICARE COMPLETE $15/$45 [facility] [place] [id number] / Product Type: PPO [id number] documented in this encounter Plan of Treatment Not on file documented as of this encounter Visit Diagnoses Not on filedocumented in this encounter Care Teams Proposal Lead Writer Relationship Specialty Start Date End Date Katie Gaytan MD [address] [place] [address] PCP - General 02/18/1999 Yovany Giles MD [address] [place] [address] Specialist Cardiology 08/12/22 Nyla Grullon NP [address] [place] [address] Cardiology 12/02/22 documented as of this encounter
--- OUTSIDE RECORDS SUMMARY | 2024-12-14 12:03 | XMS_ITS | Encounter Summary ---
Author Organization [facility] Address [address] [place] [address] Care Team Providers Care Senior Technical Editor Name Role Phone Katie Gaytan MD Primary Care Provider [phone] Yovany Giles MD Unavailable Nyla Grullon NP Unavailable Unavailable Encounter Details Date Type Department Care Team Description 12/08/2023 Orders Only Medical Records [address] [place] [phone] Fern Tabares DPM Social History Tobacco Use [...] Associated Diagnosis Comments OUTSIDE FOOT EXAM Routine 11/28/2023 documented in this encounter Results * OUTSIDE FOOT EXAM (11/28/2023) Fern Tabares DPM PERFORMABLES documented in this encounter Visit Diagnoses Not on filedocumented in this encounter Care Teams Senior Technical Editor Relationship Specialty Start Date End Date Katie Gaytan MD [address] [place] [address] PCP - General 02/18/1999 Yovany Giles MD [address] [place] [address] Specialist Cardiology 08/12/22 Nyla Grullon, TAMAR [address] [place] [address] Cardiology 12/02/22 documented as of this encounter
--- OUTSIDE RECORDS SUMMARY | 2024-12-14 12:03 | XMS_ITS | Clinical Summary ---
Author Organization [facility] Address [address] [facility] [address] [place] [id number] Phone Care Team Providers Care Plant Safety Leader Name Role Phone Katie Gaytan MD Primary Care Provider [phone] Social History Tobacco Use Types Packs/Day Years Used Date Smoking Tobacco: Never Assessed Education Answer Date Recorded Are you interested in more education? Not on noemi e 04/04/2023 Are you concerned about learning? Not on file 04/04/2023 No 04/04/2023 No 04/04/2023 Digital Access Answer Date Recorded No 04/04/2023 No 04/04/2023 Reliable internet access at home? Not on file 04/04/2023 Device with a working camera? Not on file Sex and Gender Information Value Date Recorded Sex Assigned at Not on file Legal Sex Male 12:17 PM EST Gender Identity Not on file Sexual Orientation Not on file Plan of Treatment Health Maintenance Due Date Last Done Comments LIPID PANEL 1952 DEPRESSION SCREENING 1964 SMOKING Hx and SMOKELESS TOB ACCO SCREENING 1965 HEPATITIS C SCREENING 1970 COLOGUARD 1997 COLONOSCOPY 1997 COLORECTAL CANCER SCREENING 1997 FIT TEST 1997 FOBT 1997 SIGMOIDOSCOPY 1997 VIRTUAL COLONOSCOPY 1997 PNEUMOCOCCAL VACCINES (50+ y ears) (1 of 1 - PCV) 2002 ZOSTER VACCINES (1 of 2) 2002 Adult Td,Tdap Booster 03/04/2023 03/04/2013 COVID-19 VACCINE ( - 2023-2 5 season) 2023 RSV VACCINE (1 - 1-dose 75+ series) 2027 HEPATITIS A VACCINES Aged Out No long er eligible based on patient's age to complete this topic HIB VACCINES Aged Out No longer eligi ble based on patient's age to complete this topic MENINGOCOCCAL VACCINES (ACWY) Aged Out No longer eligible based on patient's age to complete this topic MENINGOCOCCAL VACCINES (B) Aged Out N o longer eligible based on patient's age to complete this topic Medical Devices Not on file Insurance MEDICARE PART A & B [facility] MEDICARE REPLACEMENT MEDICARE PART A & B MEDICARE REPLACEMENT MEDICARE PART A & B MEDICARE REPLACEMENT MEDICARE PART A & [place] [address] [place] [address] MEDICARE REPLACEMENT MEDICARE PART A & B [facility] AAR MEDICARE REPLACEMENT MEDICARE PART A & B Care Teams Plant Safety Leader Relationship Specialty Start Date End Date Katie Gaytan MD [address] [place] [address] PCP - General Internal Medicine 04/17/23 Additional Source Comments The information contained in this document represents components of the legal health record. It is not the complete legal health record.[facility]
--- OUTSIDE RECORDS SUMMARY | 2024-12-14 12:03 | XMS_ITS | Encounter Summary ---
Author Organization [facility] Address [address] [place] [address] Care Team Providers Care Equipment Operating Engineer Name Role Phone Katie Gaytan MD Primary Care Provider [phone] Yovany Giles MD Unavailable Nyla Grullon NP Unavailable Unavailable Encounter Details Date Type Department Care Team Description 07/30/2023 Orders Only Medical Records [address] [place] [id number] Fern Tabares DPM Social History Tobacco Use [...] on filedocumented in this encounter Care Teams Equipment Operating Engineer Relationship Specialty Start Date End Date Katie Gaytan MD [address] [place] [address] PCP - General 02/18/1999 Yovany Giles MD [address] [place] [address] Specialist Cardiology 08/12/22 Nyla Grullon, TAMAR [address] [place] [address] Cardiology 12/02/22 documented as of this encounter
--- OUTSIDE RECORDS SUMMARY | 2024-12-14 12:03 | XMS_ITS | Patient Health Record ---
Author Organization [facility] Address [address] [facility] [address] [facility] [place] [address] Care Team Providers Care Diazo Technician Name Role Phone Katie Gaytan Primary Care Provider NAT Bai Unavailable [phone] Allergies Allergen (clinical drug ingredient) Drug/Non Drug Allergy documented on EMR Reaction Allergy Type Onset Date Status wool (uncoded) Unknown Allergy Activ e peanut oil Peanut Oil Unknown Drug Allergy Activ e Reason For Referral No Information Medications Medication SIG (Take, Route, Frequency, Duration) Notes Start Date End Date Status Lisinopril 1 tab daily Not-Romulo ing Folic Acid 1 MG 1 tablet Orally Once a day 1 tab daily Active metFORMIN HCl 1000 MG 1 tablet with a meal Orally bid Not-Taking HumaLOG Active Amoxicillin-Pot Clavulanate 500-125 MG 1 tablet Orally every 12 hrs; Duration: 10 days 10/27/2024 Active metFORMIN HCl ER 500 MG 1 tablet with evening meal Orally Once a day Active Trulicity 1.5 MG/0.5ML as directed Subcutaneous Active Atorvastatin Calcium 40 MG 1 tablet Orally Once a day 1 tab daily Active Aspirin 325 MG 1 tablet Orally Once a day Not-Taking Coumadin scale control Active Finasteride 5 MG 1 tablet Orally Once a day Active Plavix 75 MG 1 tablet Orally Once a day Not-Taking dilTIAZem HCl 120 MG as directed Orally Not-Taking Silver sulfADIAZINE 1 % 1 application Externally Once a day; Duration: 30 days Active Tamsulosin HCl 0.4 MG 1 capsule Orally Once a day Active Ammonium Lactate 12 % 1 application Externally once a day; Duration: 90 days Active Furosemide 20 MG 1 tablet Orally Once a day Active Terbinafine HCl 250 MG 1 tablet Orally Once a day; Duration: 14 days 08/23/2024 Active Digoxin Active Omeprazole 1 tab daily Not-Romulo ing Metoprolol Tartrate 100 MG 1 tablet with food Orally Twice a day 150MG BID Active Problems Problem Type SNOMED Code ICD Code Onset Dates Problem Status W/U Status Risk Notes Problem Polyneuropathy due to type 2 diabetes mellitus (658642732) Type 2 diabetes mellitus with diabetic polyneuropathy (E11.42) Active confirmed Problem Long-term current use of insulin (944697977) 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) Active confirmed Problem Peripheral vascular disease (743472071) PVD (peripheral vascular disease) (I73.9) Active confirmed Problem Peripheral venous insufficiency (53003619) Venous stasis dermatitis of both lower extremities (I87.2) Active confirmed Problem Ulcer of right lower extremity, limited to breakdown of skin (L97.911) Active confirmed Problem Ankle ulcer (694323927) Skin ulcer of right ankle with fat layer exposed (L97.312) Active confirmed Vital Signs Heart Rate 87 /min 10/27/2024 Temperature 96.6 degrees Fahrenheit 10/27/2024 Respiratory Rate 20 /min 10/27/2024 Height 6ft 4in in 10/27/2024 Weight 258.2 lbs 10/27/2024 BMI 31.43 kg/m2 10/27/2024 Encounters Encounter Location Date Provider Diagnosis [facility] [address] [address] 01/30/2024 NATMARVIN BROWN Type 2 diabetes mellitus with diabetic polyneuropathy E11.42 ; Dystrophic nail L60.3 ; Pain in left toe(s) M79.675 ; Pain in right toe(s) M79.674 ; Venous stasis dermatitis of both lower extremities I87.2 and Localized swelling of both lower legs R22.43 [facility] [address] [address] 04/05/2024 NATMARVIN BROWN Type 2 diabetes mellitus with diabetic polyneuropathy E11.42 ; Dystrophic nail L60.3 ; Pain in left toe(s) M79.675 ; Pain in right toe(s) M79.674 ; Venous stasis dermatitis of both lower extremities I87.2 and Localized swelling of both lower legs R22.43 [facility] [address] 06/18/2024 NAT BROWN Type 2 diabetes mellitus with diabetic polyneuropathy E11.42 ; Dystrophic nail L60.3 ; Pain in left toe(s) M79.675 ; Pain in right toe(s) M79.674 ; Venous stasis dermatitis of both lower extremities I87.2 and Localized swelling of both lower legs R22.43 [facility] [address] 08/20/2024 NAT BROWN Type 2 diabetes mellitus with diabetic polyneuropathy E11.42 ; Tinea pedis, right B35.3 ; Dystrophic nail L60.3 ; Pain in left toe(s) M79.675 ; Pain in right toe(s) M79.674 ; Venous stasis dermatitis of both lower extremities I87.2 and Localized swelling of both lower legs R22.43 [facility] [address] 10/27/2024 NAT BROWN Ulcer of right lower extremity, limited to breakdown of skin L97.911 ; Cellulitis of right leg L03.115 ; Type 2 diabetes mellitus with diabetic polyneuropathy E11.42 ; Dystrophic nail L60.3 ; Pain in right toe(s) M79.674 and Pain in left toe(s) M79.675 [facility] [address] 06/18/2024 NAT BROWN [facility] [address] 06/18/2024 NAT BROWN [facility] [address] 08/23/2024 NAT BROWN Assessments Encounter Date Diagnosis (ICD Code) Assessment Notes Treatment Notes Treatment Clinical Notes Section Notes 01/30/2024 Type 2 diabetes mellitus with diabetic polyneuropathy (ICD-10 - E11.42) We discussed his neurological exam is improved compared to his last visit. He still has decreased vibratory sensation of the left big toe. We discussed this could be due to better control of his diabetes or decreased swelling in his legs. Discussed with patient regarding proper glucose control, exercise, and diet. Explained to patient proper shoe gear, and importance of daily foot checks. I reviewed neuropathy and why it occurs in diabetics. I educated the patient on proper blood sugar control and the importance of an HgBA1c of less than 7.0%. I reviewed the signs and symptoms of neuropathy with the patient. 04/05/2024 Type 2 diabetes mellitus with diabetic polyneuropathy (ICD-10 - E11.42) We discussed his neurological exam is improved compared to his last visit. He still has decreased vibratory sensation of the left big toe. We discussed this could be due to better control of his diabetes or decreased swelling in his legs. Discussed with patient regarding proper glucose control, exercise, and diet. Explained to patient proper shoe gear, and importance of daily foot checks. I reviewed neuropathy and why it occurs in diabetics. I educated the patient on proper blood sugar control and the importance of an HgBA1c of less than 7.0%. I reviewed the signs and symptoms of neuropathy with the patient. 06/18/2024 Type 2 diabetes mellitus with diabetic polyneuropathy (ICD-10 - E11.42) We discussed his neurological exam is improved compared to his last visit. He still has decreased vibratory sensation of the left big toe. We discussed this could be due to better control of his diabetes or decreased swelling in his legs. Discussed with patient regarding proper glucose control, exercise, and diet. Explained to patient proper shoe gear, and importance of daily foot checks. I reviewed neuropathy and why it occurs in diabetics. I educated the patient on proper blood sugar control and the importance of an HgBA1c of less than 7.0%. I reviewed the signs and symptoms of neuropathy with the patient. 08/20/2024 Type 2 diabetes mellitus with diabetic polyneuropathy (ICD-10 - E11.42) We discussed his neurological exam is improved compared to his last visit. He still has decreased vibratory sensation of the left big toe. We discussed this could be due to better control of his diabetes or decreased swelling in his legs. Discussed with patient regarding proper glucose control, exercise, and diet. Explained to patient proper shoe gear, and importance of daily foot checks. I reviewed neuropathy and why it occurs in diabetics. I educated the patient on proper blood sugar control and the importance of an HgBA1c of less than 7.0%. I reviewed the signs and symptoms of neuropathy with the patient. 08/20/2024 Tinea pedis, right (ICD-10 - B35.3) He has a fungal infection between the toes on the right foot. We discussed this probably formed because he has been wearing his compression stockings and lymphedema wraps more often. We discussed using a topical versus taking an oral medication. He would like to proceed with the oral medication. RX Lamisil 250mg PO x 14 days sent to the patient's pharmacy. 10/27/2024 Ulcer of right lower extremity, limited to breakdown of skin (ICD-10 - L97.911) He has new onset ulcers of the right and left leg. It appears to be a blister from his lymphedema and the increased swelling. I explained to the patient that until the right leg wound was healed, he should be keeping the wound covered daily. He can leave open to the air for 2 hours at night before re-wrapping the bandage. He should also not be getting the wound area wet until the wound is healed. Patient was instructed not to pick at the wound and only apply Silvadene to the wound with a dry dressing only. The patient is to change the bandage daily. I recommended he avoid using the ammonium lactate to the right ankle for now. I also recommended his wrap the right ankle and leg. I am recommending a longer course of antibiotic for the right leg due to the continued redness and swelling. RX Augmentin 500mg PO BID x 10 days sent to [facility] pharmacy per the patient's request. Pt to call or go to ER if the foot becomes painful red, they see pus, or the wound worsens. 10/27/2024 Cellulitis of right leg (ICD-10 - L03.115) 10/27/2024 Type 2 diabetes mellitus with diabetic polyneuropathy (ICD-10 - E11.42) We discussed his neurological exam is improved compared to his last visit. He still has decreased vibratory sensation of the left big toe. We discussed this could be due to better control of his diabetes or decreased swelling in his legs. Discussed with patient regarding proper glucose control, exercise, and diet. Explained to patient proper shoe gear, and importance of daily foot checks. I reviewed neuropathy and why it occurs in diabetics. I educated the patient on proper blood sugar control and the importance of an HgBA1c of less than 7.0%. I reviewed the signs and symptoms of neuropathy with the patient. 08/20/2024 Dystrophic nail (ICD-10 - L60.3) I explained to the patient how ingrown toenails form: genetics, improper shoes, trauma, fungus. I reviewed with the patient proper nail care and how to conservatively treat ingrown toenails by cutting the nail straight across, massage the skin away from the edges of the nail,and to soak the feet daily. Aseptic debridement of toenails x 10 with firewood cutter and curette, pt tolerated well. Discussed with the patient that routine nail care services are only covered by insurance every 60 days. Pt understands that if they would like to return prior to this time frame, they may have to pay out of pocket. 06/18/2024 Dystrophic nail (ICD-10 - L60.3) I explained to the patient how ingrown toenails form: genetics, improper shoes, trauma, fungus. I reviewed with the patient proper nail care and how to conservatively treat ingrown toenails by cutting the nail straight across, massage the skin away from the edges of the nail,and to soak the feet daily. Aseptic debridement of toenails x 10 with firewood cutter and curette, pt tolerated well. Discussed with the patient that routine nail care services are only covered by insurance every 60 days. Pt understands that if they would like to return prior to this time frame, they may have to pay out of pocket. 04/05/2024 Dystrophic nail (ICD-10 - L60.3) I explained to the patient how ingrown toenails form: genetics, improper shoes, trauma, fungus. I reviewed with the patient proper nail care and how to conservatively treat ingrown toenails by cutting the nail straight across, massage the skin away from the edges of the nail,and to soak the feet daily. Aseptic debridement of toenails x 10 with firewood cutter and curette, pt tolerated well. Discussed with the patient that routine nail care services are only covered by insurance every 60 days. Pt understands that if they would like to return prior to this time frame, they may have to pay out of pocket. 01/30/2024 Dystrophic nail (ICD-10 - L60.3) I explained to the patient how ingrown toenails form: genetics, improper shoes, trauma, fungus. I reviewed with the patient proper nail care and how to conservatively treat ingrown toenails by cutting the nail straight across, massage the skin away from the edges of the nail,and to soak the feet daily. Aseptic debridement of toenails x 10 with firewood cutter and curette, pt tolerated well. Discussed with the patient that routine nail care services are only covered by insurance every 60 days. Pt understands that if they would like to return prior to this time frame, they may have to pay out of pocket. 01/30/2024 Pain in left toe(s) (ICD-10 - M79.675) 04/05/2024 Pain in left toe(s) (ICD-10 - M79.675) 06/18/2024 Pain in left toe(s) (ICD-10 - M79.675) 08/20/2024 Pain in left toe(s) (ICD-10 - M79.675) 10/27/2024 Dystrophic nail (ICD-10 - L60.3) I explained to the patient how ingrown toenails form: genetics, improper shoes, trauma, fungus. I reviewed with the patient proper nail care and how to conservatively treat ingrown toenails by cutting the nail straight across, massage the skin away from the edges of the nail,and to soak the feet daily. Aseptic debridement of toenails x 10 with firewood cutter and curette, pt tolerated well. Discussed with the patient that routine nail care services are only covered by insurance every 60 days. Pt understands that if they would like to return prior to this time frame, they may have to pay out of pocket. 10/27/2024 Pain in right toe(s) (ICD-10 - M79.674) 08/20/2024 Pain in right toe(s) (ICD-10 - M79.674) 04/05/2024 Pain in right toe(s) (ICD-10 - M79.674) 06/18/2024 Pain in right toe(s) (ICD-10 - M79.674) 01/30/2024 Pain in right toe(s) (ICD-10 - M79.674) 01/30/2024 Venous stasis dermatitis of both lower extremities (ICD-10 - I87.2) Cardiology is doing his extremity non-invasive testing. He also has an appointment with vascular surgery for October 27. We discussed the dry skin and the recommended creams to help. I recommended daily applications. RX ammonium lactate sent to the patient's pharmacy. We discussed that his most recent ABIs on 04/02/2021 did not show progression of his arterial disease. I will request the records from [facility] for his most recent studies. He needs to apply Eucerin cream to the dry skin on both legs. He wears lymphedema wraps daily. We discussed the importance of wearing the wraps to help control his leg swelling and prevent skin openings. He can use a wet face cloth to help remove some of the skin build up gently a few times a week. 06/18/2024 Venous stasis dermatitis of both lower extremities (ICD-10 - I87.2) We discussed the findings from the vascular surgeon. I reviewed the laser procedure with the patient and the purpose. He will consider this option. He needs to apply Eucerin cream to the dry skin on both legs. He wears lymphedema wraps daily. We discussed the importance of wearing the wraps to help control his leg swelling and prevent skin openings. He can use a wet face cloth to help remove some of the skin build up gently a few times a week. 04/05/2024 Venous stasis dermatitis of both lower extremities (ICD-10 - I87.2) We discussed the findings from the vascular surgeon. I reviewed the laser procedure with the patient and the purpose. He will consider this option. He needs to apply Eucerin cream to the dry skin on both legs. He wears lymphedema wraps daily. We discussed the importance of wearing the wraps to help control his leg swelling and prevent skin openings. He can use a wet face cloth to help remove some of the skin build up gently a few times a week. 10/27/2024 Pain in left toe(s) (ICD-10 - M79.675) 08/20/2024 Venous stasis dermatitis of both lower extremities (ICD-10 - I87.2) We discussed the findings from the vascular surgeon. I reviewed the laser procedure with the patient and the purpose. He will consider this option. He needs to apply Eucerin cream to the dry skin on both legs. He wears lymphedema wraps daily. We discussed the importance of wearing the wraps to help control his leg swelling and prevent skin openings. He can use a wet face cloth to help remove some of the skin build up gently a few times a week. 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 We discussed his most recent vein study showed severe venous reflux and no new DVTs. We discussed this is causing the foot and leg swelling. I also recommended a new pair of compression stockings and lymphedema wraps. We discussed the compression stockings are foot the foot and ankle swelling, and the wraps are for the leg swelling. We discussed calf exercises to help with the swelling, handout dispensed. I also recommended elevation. He is in agreement with this plan. 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 We discussed his most recent vein study showed severe venous reflux and no new DVTs. We discussed this is causing the foot and leg swelling. I also recommended a new pair of compression stockings and lymphedema wraps. We discussed the compression stockings are foot the foot and ankle swelling, and the wraps are for the leg swelling. We discussed calf exercises to help with the swelling, handout dispensed. I also recommended elevation. He is in agreement with this plan. 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 We discussed his most recent ultrasound showed severe venous reflux and no new DVTs. We discussed this is causing the foot and leg swelling. I also recommended a new pair of compression stockings and lymphedema wraps. We discussed the compression stockings are foot the foot and ankle swelling, and the wraps are for the leg swelling. We discussed calf exercises to help with the swelling, handout dispensed. I also recommended elevation. He is in agreement with this plan. 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 We discussed his most recent ultrasound showed severe venous reflux and no new DVTs. We discussed this is causing the foot and leg swelling. I also recommended a new pair of compression stockings and lymphedema wraps. We discussed the compression stockings are foot the foot and ankle swelling, and the wraps are for the leg swelling. We discussed calf exercises to help with the swelling, handout dispensed. I also recommended elevation. He is in agreement with this plan. 10/27/2024 Other He has a history of DVTs and is on Plavix. We discussed his most recent vein study showed severe venous reflux and no new DVTs. We discussed this is causing the foot and leg swelling. I also recommended a new pair of compression stockings and lymphedema wraps. We discussed the compression stockings are foot the foot and ankle swelling, and the wraps are for the leg swelling. We discussed calf exercises to help with the swelling, handout dispensed. I also recommended elevation. He is in agreement with this plan. Plan Of Treatment Next Appt Details Provider Name:NAT BROWN, 01/03/2025 08:30:00 AM, [address] [address], [place], [address], Insurance Providers Payer Name Payer Address Payer Phone Subscriber Number Group Number Insured Name Patient Relationship to Insured Coverage Start Date Coverage End Date [employer] Medicare Adv-[id number] [address] [address] [place] [phone] [id number] Randy Barnes i Self - patient is the insured Medical (General) History Medical History History ICD Code atrial fibrillation chronic venous stasis history of DVT essential hypertension PVD diabetes mellitus 2 with opthalmic compl ications diabetes mellitus 2 with renal complicat ions diabetes mellitus 2 with neurological co mplications morbid obesity hypercholesterolemia esophageal reflux umbilical hernia iron deficiency anemia obstructive sleep apnea nuclear sclerosis kidney stones fall 06/2022 hurt right shoulder and knee COVID vaccinated X 5 Surgical History Surgery Date(Month/Year) inguinal hernia repair cardiac stent - [facility] 11/2022 Hospitalization History Reason Date(Month/Year) Afib 02/2023 Afib, water retention 01/2023
--- OUTSIDE RECORDS SUMMARY | 2024-12-14 12:03 | XMS_ITS | Encounter Summary ---
Author Organization [facility] Address [address] [place] [address] Care Team Providers Care Smooth Stucco Resurfacer Name Role Phone Katie Gaytan MD Primary Care Provider [phone] Yovany Giles MD Unavailable Nyla Grullon NP Unavailable Unavailable Encounter Details Date Type Department Care Team Description 07/11/2011 Bond Writer Report Medical Records [address] [place] [address] 52394 An Aranda MD Social History Tobacco Use [...] on filedocumented in this encounter Care Teams Smooth Stucco Resurfacer Relationship Specialty Start Date End Date Katie Gaytan MD [address] [place] [address] [phone] PCP - General 02/18/1999 Yovany Giles MD [address] [place] [address] [phone] Specialist Cardiology 08/12/22 Nyla Grullon NP [address] [place] [address] 11732 Cardiology 12/02/22 documented as of this encounter
--- OUTSIDE RECORDS SUMMARY | 2024-12-14 12:03 | XMS_ITS | Encounter Summary ---
Author Organization [facility] Address [address] [place] [address] Care Team Providers Care Rod Finisher Name Role Phone Katie Gaytan MD Primary Care Provider [phone] Yovany Giles MD Unavailable Nyla Grullon NP Unavailable Unavailable Encounter Details Date Type Department Care Team Description 06/17/2023 Obstetrics Tech Report Medical Records [address] [place] [address] 87406 Aamir Eastman MD Social History Tobacco Use [...] on filedocumented in this encounter Care Teams Rod Finisher Relationship Specialty Start Date End Date Katie Gaytan MD [address] [place] [address] [phone] PCP - General 02/18/1999 Yovany Giles MD [address] [place] [address] 01020 Specialist Cardiology 08/12/22 Nyla Grullon NP [address] [place] [address] 43371 Cardiology 12/02/22 documented as of this encounter
--- OUTSIDE RECORDS SUMMARY | 2024-12-14 12:03 | XMS_ITS | Encounter Summary ---
Author Organization [facility] Address [address] [place] [address] Care Team Providers Care Sample Color Maker Name Role Phone Katie Gaytan MD Primary Care Provider [phone] Yovany Giles MD Unavailable Nyla Grullon NP Unavailable Unavailable Encounter Details Date Type Department Care Team Description 04/30/2012 Microbiology Teacher Report Medical Records [address] [place] [address] 07885 An Aranda MD Social History Tobacco Use [...] on filedocumented in this encounter Care Teams Sample Color Maker Relationship Specialty Start Date End Date Katie Gaytan MD [address] [place] [address] [phone] PCP - General 02/18/1999 Yovany Giles MD [address] [place] [address] [phone] Specialist Cardiology 08/12/22 Nyla Grullon NP [address] [place] [address] 73615 Cardiology 12/02/22 documented as of this encounter
--- OUTSIDE RECORDS SUMMARY | 2024-12-14 12:03 | XMS_ITS | Encounter Summary ---
Author Organization [facility] Address [address] [place] [address] Care Team Providers Care High Density Press Operator Name Role Phone Katie Gaytan MD Primary Care Provider [phone] Yovany Giles MD Unavailable Nyla Grullon NP Unavailable Unavailable Encounter Details Date Type Department Care Team Description 11/01/2023 CGM Report Medical Records [address] [place] [address] 40075 Abstract, Provider Social History Tobacco Use Types [...] on filedocumented in this encounter Care Teams High Density Press Operator Relationship Specialty Start Date End Date Katie Gaytan MD [address] [place] [address] [phone] PCP - General 02/18/1999 Yovany Giles MD [address] [place] [address] [phone] Specialist Cardiology 08/12/22 Nyla Grullon NP [address] [place] [address] 25879 Cardiology 12/02/22 documented as of this encounter
--- OUTSIDE RECORDS SUMMARY | 2024-12-14 12:03 | XMS_ITS | Encounter Summary ---
Author Organization [facility] Address [address] [place] [address] Care Team Providers Care Maintainer Operator Name Role Phone Katie Gaytan MD Primary Care Provider [phone] Yovany Giles MD Unavailable Nyla Grullon NP Unavailable Unavailable Encounter Details Date Type Department Care Team Description 12/10/2011 Charge Account Identification Clerk Report Medical Records [address] [place] [address] 68501 An Aranda MD Social History Tobacco Use [...] on filedocumented in this encounter Care Teams Maintainer Operator Relationship Specialty Start Date End Date Katie Gaytan MD [address] [place] [address] [phone] PCP - General 02/18/1999 Yovany Giles MD [address] [place] [address] [phone] Specialist Cardiology 08/12/22 Nyla Grullon NP [address] [place] [address] 28665 Cardiology 12/02/22 documented as of this encounter
--- OUTSIDE RECORDS SUMMARY | 2024-12-14 12:03 | XMS_ITS | Encounter Summary ---
Author Organization [facility] Address [address] [place] [address] Care Team Providers Care Marketing/Sales Person Name Role Phone Katie Gaytan MD Primary Care Provider [phone] Yovany Giles MD Unavailable Nyla Grullon NP Unavailable Unavailable Reason for Visit * Reason Onset Date Comments Medication 03/17/2023 Encounter Details Date Type Department Care Team Description 03/17/2023 Telephone Cardio [facility] [address] [place] [address] Nyla Grullon NP Medication Social History Tobacco Use Types Packs/Day [...] Miscellaneous Notes * Telephone Encounter - Radha Greene - 03/17/2023 4:34 PM EST Pt informed of To [facility]'s response regarding Metoprolol and voiced understanding * Telephone Encounter - Nyla Fonseca - 03/17/2023 3:17 PM EST Booked patient 04/01/23 1240 with ANG. Patient forgot to ask if he is to continue taking Mwtqfozkfj29rt takes 2 tablets daily. [phone] * Telephone Encounter - Nyla Grullon NP - 03/17/2023 2:43 PM EST I can see him on 03/31 or 04/01 at 12:40pm * Telephone Encounter - Radha Greene - 03/17/2023 2:31 PM EST Called pt back and confirmed he takes Magnesium 400 mg- 2 tab daily. He also stated he went to [facility] and picked up Furosemide and Magnesium today- 30 day supply for both. Does not need another rx sent in at this time. He was also informed of prelim holter results. Is tomorrow too soon for an apt with you? Access did not see availablity w/ you next week. * Telephone Encounter - Nyla Fonseca - 03/17/2023 2:05 PM EST Patient returning call. [phone] Access did not see any available appointments with Nyla Grullon, only saw one for tomorrow unsure if that is too soon for patient to come in? * Telephone Encounter - Radha Greene - 03/17/2023 12:34 PM EST Left a message on pt's machine for c/b to confirm the mag dose he has been taking and inform him ofprelim holter results. Access- Please contact pt to schedule a f/u next week with Bethany Grullon. Thank you * Telephone Encounter - Nyla Grullon NP - 03/17/2023 12:20 PM EST Yes please. Can you please make him an appt with me for next week? Also let him know his priliminary report from his holter monitor showed that his atrial fibrillation is well controlled, still awaiting final report though. * Telephone Encounter - Radha Greene - 03/17/2023 10:19 AM EST Pt was seen in office on 02/26/23. Labs drawn 02/28/23, Mag was low, and pt was advised to continue taking Mag supplement. May I refill both Lasix 20 mg QD and Magnesium 400 mg-2 tabs QD for pt? * Telephone Encounter - Nyla Fonseca - 03/17/2023 8:12 AM EST Patient calling questioning if he is supposed to continue taking Magnesium 400mg, takes 1 daily andFurosemide 20 mg takes 1 daily. If he does need to continue taking these he would like the refills to go to [facility]. documented in this encounter Plan of Treatment Not on file documented as of this encounter Visit Diagnoses Not on filedocumented in this encounter Care Teams Marketing/Sales Person Relationship Specialty Start Date End Date Katie Gaytan MD [address] [place] [address] 34489 PCP - General 02/18/1999 Yovany Giles MD [address] [place] [address] 79680 Specialist Cardiology 08/12/22 Nyla Grullon NP [address] [place] [address] 44623 Cardiology 12/02/22 documented as of this encounter
--- OUTSIDE RECORDS SUMMARY | 2024-12-14 12:03 | XMS_ITS | Encounter Summary ---
Author Organization [facility] Address [address] [place] [address] Care Team Providers Care Crm Marketing Manager Name Role Phone Katie Gaytan MD Primary Care Provider [phone] Yovany Giles MD Unavailable Nyla rGullon NP Unavailable Unavailable Reason for Visit * Reason Onset Date Comments Special Procedure 12/24/2018 Encounter Details Date Type Department Care Team Description 12/24/2018 Telephone Gastroenterology - [address] [place] [phone] Katie Gaytan MD [address] [place] [address] [phone] Special Procedure Social History Tobacco Use Types [...] it done a few months ago at [facility]. He will be calling you to obtain those notes so they can be added to his chart, thank you documented in this encounter Plan of Treatment Not on file documented as of this encounter Visit Diagnoses Not on filedocumented in this encounter Care Teams Crm Marketing Manager Relationship Specialty Start Date End Date Katie Gaytan MD [address] [place] [address] 19124 PCP - General 02/18/1999 Yovany Giles MD [address] [place] [address] 91416 Specialist Cardiology 08/12/22 Nyla Grullon NP [address] [place] [address] 35022 Cardiology 12/02/22 documented as of this encounter
--- OUTSIDE RECORDS SUMMARY | 2024-12-14 12:03 | XMS_ITS | Encounter Summary ---
Author Organization [facility] Address [address] [place] [address] Care Team Providers Care Log Roper Name Role Phone Katie Gaytan MD Primary Care Provider [phone] Yovany Giles MD Unavailable Nyla Grullon HYDROELECTRIC SYSTEMS TECHNICIAN Unavailable Unavailable Reason for Visit * Reason Onset Date Comments refill request 06/16/2018 Encounter Details Date Type Department Care Team Description 06/16/2018 Refill Adult Medicine [address] [phone] Katie Gaytan MD [address] [place] [address] [phone] refill request Social History Tobacco Use Types [...] encounter Miscellaneous Notes * Telephone Encounter - Olivia Owens - 06/16/2018 4:26 PM EST Patient would like script to be: E-PRESCRIBED/FAXED TO PHARMACY WHEN WAS THE PATIENT'S LAST APPOINTMENT IN ADULT MEDICINE? 03-10-18 WHEN WAS THE LAST TIME THE PATIENT SAW THEIR PCP? 12-02-17 Does patient have an upcoming appointment? Yes 08-10-18 (THE MEDICATION REQUESTED IS ON THE MED [...] Patients current insurance carrier is: Payor: [facility] / Plan: AARP MEDICARE COMPLETE $15[place]45 [facility] [id number] / Product Type: PPO [id number] documented in this encounter Plan of Treatment Not on file documented as of this encounter Visit Diagnoses Not on filedocumented in this encounter Care Teams Log Roper Relationship Specialty Start Date End Date Katie Gaytan MD [address] [place] [address] PCP - General 02/18/1999 Yovany Giles MD [address] [place] [address] Specialist Cardiology 08/12/22 Nyla Grullon NP [address] [place] [address] Cardiology 12/02/22 documented as of this encounter
--- OUTSIDE RECORDS SUMMARY | 2024-12-14 12:03 | XMS_ITS | Encounter Summary ---
Author Organization [facility] Address [address] [place] [address] Care Team Providers Care Die Maker Electronic Name Role Phone Katie Gaytan MD Primary Care Provider [phone] Yovany Giles MD Unavailable Nyla Grullon NP Unavailable Unavailable Reason for Visit * Reason Comments E-prescribe Rx Request Encounter Details Date Type Department Care Team Description 02/26/2019 Refill Adult Medicine [address] [phone] Katie Gaytan MD [address] [place] [address] [phone] E-prescribe Rx Request Social History Tobacco Use [...] Telephone Encounter - Raine Sloan M.A. - 03/01/2019 9:01 AM EST Lab Results Component Value Date CHOL 143 02/25/2018 LDL 79 02/25/2018 HDL 46 02/25/2018 TRIG 88 02/25/2018 SGOT 15 02/25/2018 SGPT 18 02/25/2018 * Telephone Encounter - Sabiha Weems - 02/28/2019 3:44 PM EST Patient would like script to be: E-PRESCRIBED/FAXED TO PHARMACY WHEN WAS THE PATIENT'S LAST APPOINTMENT IN ADULT MEDICINE? 10/05/18 WHEN WAS THE LAST TIME THE PATIENT SAW THEIR PCP? Does patient have an upcoming appointment? Yes [...] N/A Patients current insurance carrier is: Payor: [facility] / Plan: [facility] MEDICARE COMPLETE $15/$45 [facility] [id number] / Product Type: PPO [id number] documented in this encounter Plan of Treatment Not on file documented as of this encounter Visit Diagnoses Not on filedocumented in this encounter Care Teams Die Maker Electronic Relationship Specialty Start Date End Date Katie Gaytan MD [address] [place] [address] PCP - General 02/18/1999 Yovany Giles MD [address] [place] [address] Specialist Cardiology 08/12/22 Nyla Grullon NP [address] [place] [address] Cardiology 12/02/22 documented as of this encounter
--- OUTSIDE RECORDS SUMMARY | 2024-12-14 12:04 | XMS_ITS | Encounter Summary ---
Author Organization [facility] Address [address] [place] [address] Care Team Providers Care Thoracic Medicine Specialist Name Role Phone Katie Gaytan MD Primary Care Provider [phone] Yovany Giles MD Unavailable Nyla Grullon NP Unavailable Unavailable Reason for Visit * Reason Comments E-prescribe Rx Request Encounter Details Date Type Department Care Team Description 04/07/2014 Refill Adult Medicine [address] [address] Kenji Mcfarland MD E-prescribe Rx Request Social History Tobacco Use [...] encounter Miscellaneous Notes * Telephone Encounter - Sharmin Almeida M.A. - 04/08/2014 8:33 AM EST Faxed to pharmacy * Telephone Encounter - Dolly Verdugo M.A. - 04/07/2014 11:47 AM EST Component Value Date CHOL 156 03/08/2014 LDL 89 03/08/2014 HDL 47 03/08/2014 TRIG 101 03/08/2014 SGOT 19 03/13/2013 SGPT 30 03/13/2013 * Telephone Encounter - Ana Courtney - 04/07/2014 11:28 AM EST Patient would like script to be: E-PRESCRIBED/FAXED TO PHARMACY WHEN WAS THE PATIENT'S LAST APPOINTMENT IN ADULT MEDICINE? 03/09/14 WHEN WAS THE LAST TIME THE PATIENT SAW THEIR PCP? Same as above Does patient have an upcoming appointment? Yes 08/01/14 (THE MEDICATION REQUESTED IS ON THE MED LIST ABOVE) All of the medications requested were on the CURRENT MEDS list Did you check the Pharmacy information above?: YES Patient wants: 30 -day supply Is this a mail order prescription request ? NO Patients current insurance carrier is: Payor: [facility] / Plan: POS $0 [facility] [id number] / Product Type: POS [id number] documented in this encounter Plan of Treatment Not on file documented as of this encounter Visit Diagnoses Not on filedocumented in this encounter Care Teams Thoracic Medicine Specialist Relationship Specialty Start Date End Date Katie Gaytan MD [address] [place] [address] 03381 PCP - General 02/18/1999 Yovany Giles MD [address] [place] [address] 05026 Specialist Cardiology 08/12/22 Nyla Grullon NP [address] [place] [address] 46729 Cardiology 12/02/22 documented as of this encounter
--- OUTSIDE RECORDS SUMMARY | 2024-12-14 12:04 | XMS_ITS | Encounter Summary ---
Author Organization [facility] Address [address] [place] [address] Care Team Providers Care Post Graduate Internship Name Role Phone Katie Gaytan MD Primary Care Provider Yovany Giles MD Unavailable Nyla Grullon DENTAL HYGIENE ADMINISTRATIVE ASSISTANT Unavailable Unavailable Encounter Details Date Type Department Care Team Description 02/01/2021 Telephone Cardio PVCA Diag Testing [address] [facility] [address] [place] [address] Ariella Smith MD Social History Tobacco Use Types Packs/Day [...] have Coronavirus / COVID-19? No / Unsure 01/26/2021 9:53 AM EDT documented as of this encounter Miscellaneous Notes * Telephone Encounter - Ariella Smith MD - 02/01/2021 12:55 PM EDT Thanks I updated the diagnosis association * Telephone Encounter - Geni Hess - 02/01/2021 12:17 PM EDT This patient is coming in 04/02/21 for an Arterial US. 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 Thank you! documented in this encounter Plan of Treatment Not on file documented as of this encounter Visit Diagnoses Not on filedocumented in this encounter Care Teams Post Graduate Internship Relationship Specialty Start Date End Date Katie Gaytan MD [address] [place] [address] 73326 PCP - General 02/18/1999 Yovany Giles MD [address] [place] [address] 82918 Specialist Cardiology 08/12/22 Nyla Grullon NP [address] [place] [address] 26059 Cardiology 12/02/22 documented as of this encounter
--- OUTSIDE RECORDS SUMMARY | 2024-12-14 12:04 | XMS_ITS | Encounter Summary ---
Author Organization [facility] Address [address] [place] [address] Care Team Providers Care Web Press Operator Name Role Phone Katie Gaytan MD Primary Care Provider [phone] Yovany Giles MD Unavailable Nyla Grullon NP Unavailable Unavailable Reason for Visit * Reason Onset Date Comments refill request 08/25/2019 Encounter Details Date Type Department Care Team Description 08/25/2019 Refill Adult Medicine [address] [phone] Katie Gaytan MD [address] [place] [address] [phone] refill request Social History Tobacco Use Types [...] Telephone Encounter - Catrina Gonsalves M.A. - 08/25/2019 9:13 AM EDT Last ov 06/07/19 Next ov 10/21/19 Lab Results Component Value Date CHOL 160 03/12/2019 LDL 93 03/12/2019 HDL 51 03/12/2019 TRIG 83 03/12/2019 SGOT 15 02/25/2018 SGPT 18 02/25/2018 * Telephone Encounter - Kamilah Franck - 08/25/2019 9:02 AM EDT Patient would like script to be: E-PRESCRIBED/FAXED TO PHARMACY WHEN WAS THE PATIENT'S LAST APPOINTMENT IN ADULT MEDICINE? 06/07/2019 WHEN WAS THE LAST TIME THE PATIENT SAW THEIR PCP? Same as above Does patient have an upcoming appointment? Yes 10/21/2019 (THE MEDICATION REQUESTED IS ON THE MED [...] N/A Patients current insurance carrier is: Payor: [facility] / Plan: AARP MEDICARE COMPLETE $15/$45 [facility] [place] [id number] / Product Type: PPO [id number] documented in this encounter Plan of Treatment Not on file documented as of this encounter Visit Diagnoses Not on filedocumented in this encounter Care Teams Web Press Operator Relationship Specialty Start Date End Date Katie Gaytan MD [address] [place] [address] 86414 PCP - General 02/18/1999 Yovany Giles MD [address] [place] [address] 90407 Specialist Cardiology 08/12/22 Nyla Grullon NP [address] [place] [address] 91162 Cardiology 12/02/22 documented as of this encounter
--- OUTSIDE RECORDS SUMMARY | 2024-12-14 12:04 | XMS_ITS | Encounter Summary ---
Author Organization [facility] Address [address] [place] [address] Care Team Providers Care Hand Cigar Making Supervisor Name Role Phone Katie Gaytan MD Primary Care Provider [phone] Yovany Giles MD Unavailable Nyla Grullon NP Unavailable Unavailable Reason for Visit * Reason Onset Date Comments Pre-visit Diabetes Lab Adult Medicine 02/03/202002/14 Encounter Details Date Type Department Care Team Description 02/03/2020 Telephone Adult Medicine [address] [phone] Katie Gaytan MD [address] [place] [address] [phone] Pre-visit Diabetes Lab Adult Medicine (02/14) Social [...] on filedocumented in this encounter Care Teams Hand Cigar Making Supervisor Relationship Specialty Start Date End Date Katie Gaytan MD [address] [place] [address] 83939 PCP - General 02/18/1999 Yovany Giles MD [address] [place] [address] 35505 Specialist Cardiology 08/12/22 Nyla Grullon NP [address] [place] [address] 30672 Cardiology 12/02/22 documented as of this encounter
--- OUTSIDE RECORDS SUMMARY | 2024-12-14 12:04 | XMS_ITS | Encounter Summary ---
Author Organization [facility] Address [address] [place] [address] Care Team Providers Care Chief Cruiser Name Role Phone Katie Gaytan MD Primary Care Provider [phone] Encounter Details Date Type Department Care Team (Latest Contact Info) Description 03/02/2024 Anticoagulation - Warfarin Visit Coumadin [address] [phone] Shonna White LPN Personal history of DVT [...] 9:30 AM EDT Office Visit Adult Medicine [address] [phone] Katie Gaytan MD [address] [place], [place] 12/31/2024 9:30 AM EDT Office Visit Vascular Surgery - [place] [address] [place] [address] Kimmie Denny PA [address] [place] [address] 01/21/2025 8:40 AM EDT Office Visit [facility] [address] [facility] [address] [place] [phone] Sarah Lee NP [address] [place] [phone] 03/30/2025 9:20 AM EST Office Visit Endocrinology - [place] [address] [place] [address] Julia Oconnell PA [address] [place], [place] documented as of this encounter Visit Diagnoses Diagnosis Personal history of DVT (deep vein thrombosis)- Primary Personal history of venous thrombosis and embolism documented in this encounter Care Teams Chief Cruiser Relationship Specialty Start Date End Date Katie Gaytan MD [address] [place] [address] PCP - General 02/18/1999 documented as of this encounter
--- OUTSIDE RECORDS SUMMARY | 2024-12-14 12:04 | XMS_ITS | Encounter Summary ---
Author Organization [facility] Address [address] [place] [address] Care Team Providers Care Reinforcement Maker Name Role Phone Katie Gaytan MD Primary Care Provider [phone] Yovany Giles MD Unavailable Nyla Grullon NP Unavailable Unavailable Encounter Details Date Type Department Care Team Description 07/26/2019 Telephone Adult Medicine [address] Social History Tobacco Use Types Packs/Day [...] on filedocumented in this encounter Care Teams Reinforcement Maker Relationship Specialty Start Date End Date Katie Gaytan MD [address] [place] [address] [phone] PCP - General 02/18/1999 Yovany Giles MD [address] [place] [address] [phone] Specialist Cardiology 08/12/22 Nyla Grullon NP [address] [place] [address] 88142 Cardiology 12/02/22 documented as of this encounter
--- OUTSIDE RECORDS SUMMARY | 2024-12-14 12:04 | XMS_ITS | Encounter Summary ---
Author Organization [facility] Address [address] [place] [address] Care Team Providers Care Front Line Leader Name Role Phone Katie Gaytan MD Primary Care Provider [phone] Yovany Giles MD Unavailable Nyla Grullon NP Unavailable Unavailable Encounter Details Date Type Department Care Team Description 07/13/2020 Rim Fire Priming Tool Setter Report Medical Records [address] [place] [address] Fern Tabares DPM Social History Tobacco Use [...] on filedocumented in this encounter Care Teams Front Line Leader Relationship Specialty Start Date End Date Katie Gaytan MD [address] [place] [address] [phone] PCP - General 02/18/1999 Yovany Giles MD [address] [place] [address] [phone] Specialist Cardiology 08/12/22 Nyla Grullon NP [address] [place] [address], [place] [address] Cardiology 12/02/22 documented as of this encounter
--- OUTSIDE RECORDS SUMMARY | 2024-12-14 12:04 | XMS_ITS | Encounter Summary ---
Author Organization [facility] Address [address] [place] [address] Care Team Providers Care Balloon Pilot Name Role Phone Katie Gaytan MD Primary Care Provider [phone] Yovany Giles MD Unavailable Nyla Grullon NP Unavailable Unavailable Encounter Details Date Type Department Care Team Description 09/14/2020 Commodities Requirements Analyst Report Medical Records [address] [place] [id number] Fern Tabares DPM Social History Tobacco Use [...] on filedocumented in this encounter Care Teams Balloon Pilot Relationship Specialty Start Date End Date Katie Gaytan MD [address] [place] [address] [phone] PCP - General 02/18/1999 Yovany Giles MD [address] [place] [address] [phone] Specialist Cardiology 08/12/22 Nyla Grullon NP [address] [place] [address] [phone] Cardiology 12/02/22 documented as of this encounter
--- OUTSIDE RECORDS SUMMARY | 2024-12-14 12:04 | XMS_ITS | Encounter Summary ---
Author Organization [facility] Address [address] [place] [address] Care Team Providers Care King Maker Name Role Phone Katie Hernandez MD Primary Care Provider [phone] Yovany Giles MD Unavailable Nyla Grullon NP Unavailable Unavailable Reason for Visit * Reason Onset Date Comments APPOINTMENT 12/12/2014 dr hernandez wants to o verbook this patient on 12/15/14. Encounter Details Date Type Department Care Team Description 12/12/2014 Telephone Adult Medicine [address] [phone] Katie Hernandez MD [address] [place] [address] [phone] APPOINTMENT (dr hernandez wants to overbook this [...] on filedocumented in this encounter Care Teams King Maker Relationship Specialty Start Date End Date Katie Hernandez MD [address] [place] [address] [id number] PCP - General 02/18/1999 Yovany Giles MD [address] [place] [address] [phone] Specialist Cardiology 08/12/22 Nyla Grullon NP [address] [place] [address] [phone] Cardiology 12/02/22 documented as of this encounter
--- OUTSIDE RECORDS SUMMARY | 2024-12-14 12:04 | XMS_ITS | Encounter Summary ---
Author Organization [facility] Address [address] [place] [address] Care Team Providers Care Windows Systems Engineer Name Role Phone Katie Gaytan MD Primary Care Provider [phone] Yovany Giles MD Unavailable Nyla Grullon NP Unavailable Unavailable Encounter Details Date Type Department Care Team Description 07/26/2019 Telephone Adult Medicine [id number] Social History Tobacco Use Types Packs/Day [...] on filedocumented in this encounter Care Teams Windows Systems Engineer Relationship Specialty Start Date End Date Katie Gaytan MD [address] [place] [address] [phone] PCP - General 02/18/1999 Yovany Giles MD [address] [place] [address] [phone] Specialist Cardiology 08/12/22 Nyla Grullon NP [address] [place] [address] [phone] Cardiology 12/02/22 documented as of this encounter
--- OUTSIDE RECORDS SUMMARY | 2024-12-14 12:04 | XMS_ITS | Encounter Summary ---
Author Organization [facility] Address [address] [place] [address] Care Team Providers Care Account Manager Relief Name Role Phone Katie Gaytan MD Primary Care Provider [phone] Yovany Giles MD Unavailable Nyla Grullon NP Unavailable Unavailable Encounter Details Date Type Department Care Team Description 01/04/2014 Qa Test Analyst Report Medical Records [address] [place], [place] [phone] Social History Tobacco Use Types Packs/Day Years [...] on filedocumented in this encounter Care Teams Account Manager Relief Relationship Specialty Start Date End Date Katie Gaytan MD [address] [place], [place] [phone] PCP - General 02/18/1999 Yovany Giles MD [address] [place], [place] [phone] Specialist Cardiology 08/12/22 Nyla Grullon NP [address] [place] [address] [phone] Cardiology 12/02/22 documented as of this encounter
--- OUTSIDE RECORDS SUMMARY | 2024-12-14 12:04 | XMS_ITS | Encounter Summary ---
Author Organization [facility] Address [address] [place] [address] Care Team Providers Care Acid Maker Name Role Phone Katie Gaytan MD Primary Care Provider [phone] Yovany Giles MD Unavailable Nyla Grullon NP Unavailable Unavailable Encounter Details Date Type Department Care Team Description 07/26/2019 Telephone Adult Medicine [address] Social History Tobacco Use Types Packs/Day [...] on filedocumented in this encounter Care Teams Acid Maker Relationship Specialty Start Date End Date Katie Gaytan MD [address] [place] [address] [phone] PCP - General 02/18/1999 Yovany Giles MD [address] [place] [address] [phone] Specialist Cardiology 08/12/22 Nyla Grullon NP [address] [place] [address] [phone] Cardiology 12/02/22 documented as of this encounter
--- NOTE | 2024-12-14 13:05 | CA_ITS ---
Transthoracic Echocardiogram Patient (Last, First, Middle): Randy Tan J Gender: Male Date of : 1950 Age: 74 Procedure Date: 12/14/2024 Procedure Type: Transthoracic Echocardiogram Location: ER Height: 193.04 cm Weight: 118.84 kg BSA: 2.48 m2 Heart Rate: bpm BP: 122 / 80 mmHg Rental Agent: VH/RC Referring MD: Jolie Murphy MD Symptoms: sob Study Quality: Fair/Contrast ECG Rhythm: Atrial Fibrillation Conclusions: - The left ventricular systolic function is normal. The visually estimated ejection fraction is between 60-65%. - There is moderately increased left ventricular wall thickness. - No obvious valvular pathology seen on this study. Findings Procedure Information Contrast agent, definity, is being given per protocol without apparent complications. Left Ventricle Normal left ventricular cavity size. There is moderately increased left ventricular wall thickness. The left ventricular systolic function is normal. The visually estimated ejection fraction is between 60-65%. There is no evidence of regional wall motion abnormalities. Diastolic function is indeterminate on the basis of available data. Right Ventricle Mildly increased right ventricular cavity size. There is low normal right ventricular systolic function. Aortic Valve The aortic valve was not well visualized. There is no aortic valve stenosis. There is no aortic valve regurgitation. Mitral Valve The mitral valve appears normal. There is no mitral valve regurgitation. There is no mitral valve stenosis. Pulmonic Valve The pulmonic valve is likely normal. Tricuspid Valve There is trace tricuspid valve regurgitation. There is no evidence of pulmonary hypertension. Great Vessels The asc aorta is normal in size. Venous The inferior vena cava is mildly dilated and collapses less than 50% with inspiration. Pericardium/Pleural There is no evidence of pericardial effusion. Prior Study Comparison No significant change compared to prior study dated: 02/14/2023. Recommendations, Care & Conclusions No obvious valvular pathology seen on this study. Measurements 2D Linear Measurements IVSd: 1.41 0.6-0.9/0.6-1.0 cm LVIDd: 4.47 3.9-5.3/4.2-5.9 cm LVIDd Index: 1.80 2.4-3.2/2.2-3.1 cm/m2 LVIDs: 3.19 2.0-3.6 cm LVPWd: 1.45 0.7-1.1 cm LA Diam: 3.10 2.7-3.8/3.0-4.0 cm LAIDs Index: 1.25 1.5-2.3 cm/m2 LV Mass: 316.70 67-162/88-224 g LV Mass Index: 127.70 43-95/49-115 g/m2 LVOT Diam: 2.10 3.0+(-)1.3 cm 2D Systolic Function EF 4C: 69.20 >55% EF 2C: 55.50 >55% EF BiP: 62.00 >55% Mitral Valve MV VTI: 0.24 MV Pk Adan: 1.02 MV Mn Adan: 0.59 MV Pk Grad: 4.00 MV Mn Grad: 2.00 MV Pk E: 0.87 MV Decel Time: 240.00 E'Lateral: 10.70 E'Medial: 8.64 E/E' Med: 10.00 E/E' Lat: 8.10 PHT: 70.00 MVA PHT: 3.14 MVA Continuity: 2.15 Decel Cavalier: 3.75 Aortic Valve AoV Pk Adan: 1.43 AoV Mn Adan: 0.98 AoV VTI: 0.28 AoV Pk Grad: 8.00 Aov Mn Grad: 5.00 JONY Cont.VTI: 1.85 LVOT LVOT Pk Adan: 0.73 LVOT Mn Adan: 0.52 LVOT VTI: 0.15 LVOT Pk Grad: 2.00 LVOT Mn Grad: 2.00 LVOT Diam: 2.10 LVOT Area: 3.46 Diastolic Function MV Pk E: 0.87 E'Medial: 8.64 E/E' Med: 10.00 E' Laterial: 10.70 E/E' Lat: 8.10 Right Ventricle TAPSE (mm): 18.60 TVS' Adan: 10.60 Great Vessels Aorta Sinus of Valsalva: 3.50 2.0-3.5 cm Ao Asc: 3.80 2.1-3.4 cm Pulmonary Valve PV Pk Adan: 0.88 Peak PV Grad: 3.00 Updated in Other Vendor System with Status of Final Win Garcia MD electronically signed on 12/14/2024 3:53:12 PM with status of Final
[2024-12-14 13:22] LABS: MANUAL DIFF FLAG NO
[2024-12-14 13:28] LABS: Hematocrit 48.6 % (42.0-52.0); Hemoglobin 14.0 g/dl (14.0-18.0); Imm Gran Abs Auto 0.03 X10*3/uL (0.00-0.03); Imm Gran Pct Auto 0.5 % (0.0-0.4); Lymphocytes Absolute Auto 0.9 X10*3/uL (1.2-4.9); Mean Corpuscular HGB Conc 28.8 g/dl (31.0-36.0); Mean Corpuscular Hemoglobin 23.7 pg (27.0-33.0); Mean Corpuscular Volume 82.4 fL (80.0-98.0); NRBC Abs Auto 0.000 X10*3/uL (0.0-0.012); NRBC Pct Auto 0.0 /100WBC (0.0-0.2); Platelet Count 195 X10*3/uL (160-400); Red Blood Count 5.90 X10*6/uL (4.60-5.80); White Blood Count 6.2 X10*3/uL (4.8-10.8)
[2024-12-14 13:34] LABS: INTERNATIONAL NORM RATIO 2.9 (0.9-1.1); Prothrombin Time 33.8 SEC (10.9-12.4)
[2024-12-14 13:42] LABS: COVID-19 Test Negative (Negative); IDNOW Serial# 55D5AD1C
[2024-12-14 13:47] LABS: Alanine Aminotransferase 23 U/L (0-40); Albumin Level 3.3 g/dL (3.5-5.0); Alkaline Phosphatase 95 U/L (39-117); Anion Gap 11 (12-20); Aspartate Amino Transferase 37 U/L (5-37); Blood Urea Nitrogen 30 mg/dL (9-16); Calcium 8.7 mg/dL (8.4-10.2); Carbon Dioxide 35 mmol/L (22-29); Chloride 104 mmol/L (96-108); Creatinine Clr Calc Pharmacy 79.7; Estimated Glomerular Filt Rate > 60; Magnesium 1.8 mg/dL (1.6-2.6); Potassium 4.4 mmol/L (3.3-5.1); Sodium 146 mmol/L (135-145); Total Protein 7.6 g/dL (6.5-8.0)
[2024-12-14 13:49] LABS: Digoxin < 0.2 ng/mL (0.8-2.0)
[2024-12-14 13:52] LABS: B Type Natriuretic Peptide 545 pg/mL (<100)
[2024-12-14 13:54] LABS: Troponin-I High Sensitivity 5.4 ng/L (<3.5-35.0)
[2024-12-14] MEDS: Furosemide 40 MG/4 ML VIAL IVPUSH (14:49)
--- NOTE | 2024-12-14 14:58 | ECG_ITS ---
Test Reason : SOB Blood Pressure : */* mmHG Vent. Rate : 69 BPM Atrial Rate : * BPM P-R Int : * ms QRS Dur : 94 ms QT Int : 382 ms P-R-T Axes : * 17 45 degrees QTcB Int : 409 ms Atrial fibrillation Abnormal ECG When compared with ECG of 14-Dec-2024 10:27, No significant change was found Referred By: Jolie Murphy Electronically Signed By: KAREN SUAZO
--- NOTE | 2024-12-14 15:04 | PC.NURSE ---
pt medicated per provider order. hospitalist held nitro paste d/t pt currently denying chest pain and BP being normotensive.
--- NOTE | 2024-12-14 15:14 | PM.IMHP ---
History of Present Illness Date of Service: 12/14/24 Chief Complaint: sob 74M PMH chronic diastolic CHF, diabetes, coronary disease status post stent, DVT/PE on warfarin, paroxysmal AFib, obesity, chronic lymphedema, presented with hypoxia. Patient states about 2 weeks prior to presentation was at wound care and noted to be hypoxic in the high 80s. He got a monitor and through last 2 weeks was consistently hypoxic, initially asymptomatic but then started to notice shortness breath worse on exertion, he has chronic orthopnea but appears worse than normal. He was instructed to increase his Lasix, but then called PCP that was hypoxic so told to come to ED. In ED noted to be in the 80s on room air, chest x-ray with some interstitial edema, BNP elevated. Denies chest pain, fever, chills, cough. Review of Systems Review of Systems: Yes all other systems are reviewed and are negative [facility] Medical History Atrial fibrillation with RVR BPH (benign prostatic hyperplasia) Chronic venous stasis dermatitis GERD (gastroesophageal reflux disease) CAD (coronary artery disease) Type 2 diabetes mellitus (HFpEF) heart failure with preserved ejection fraction Atrial fibrillation Family History Father Kidney cancer, primary, with metastasis from kidney to other site Heart disease Surgical History Hx of colonoscopy Status post percutaneous transluminal angioplasty (AV SPECIALIST) with stent placement Social History Household Members: Significant Other Housing: House Are you a primary outdoor emergency care technician to a significant other at home: No Do you presently have visiting nurse or other home services: No Alcohol intake: current Alcohol intake frequency: holidays/special occasions only Patient Tobacco Use Status: Never used Tobacco Smoked in Last 30 Days: No Second Hand Smoke Exposure: No Use of substances other than those prescribed or required for medical reasons: No Advance Directives: Yes Advance Directives on File: Yes Advance Directives Date on File: 02/13/23 Do you have a plan to hurt others: No Plan service: No Meds Allergies Allergy/AdvReac Type Severity Reaction Status Date / Time peanut (PEANUTS) Allergy Intermediate Hives Verified 12/14/24 10:24 wool (WOOL) Allergy Unknown UNK Verified 12/14/24 10:24 Active Medications: Current Medications Acetaminophen (Acetaminophen 325 Mg Tablet) 650 mg PO Q6H PRN PRN Reason: Pain, Mild 1-3,fever,headache Calcium Carbonate (Calcium Carbonate 750 Mg Tab.Chew) 750 mg PO Q4H PRN PRN Reason: Heartburn Dextrose (Dextrose 50 % 25 Gm/50 Ml Syringe) 25 gm IVPUSH Q15M PRN; Protocol PRN Reason: per Hypoglycemia Standing Ord. Furosemide (Furosemide 40 Mg/4 Ml Vial) 40 mg IVPUSH BID@0900,1800 [facility]; Protocol Glucose (Glucose Gel 15 Gm Gel..Gram.) 15 gm PO Q15M PRN; Protocol PRN Reason: per Hypoglycemia Standing Ord. Insulin Human Lispro (Insulin Lispro 100 Unit/Ml 3 Ml Vial) 0 unit SUBCUT QIDACHS [facility]; Protocol Magnesium Hydroxide (Milk Of Magnesia 30 Ml Oral.Susp) 30 ml PO DAILY PRN PRN Reason: Constipation Melatonin (Melatonin 3 Mg Tablet) 6 mg PO BEDTIME PRN PRN Reason: Insomnia Sodium Chloride (0.9 % Sodium Chloride Flush 3 Ml Syringe) [address] [facility] Home Medications ?Medication ?Instructions ?Recorded ?Confirmed ?Last Taken ?Type atorvastatin 40 mg tablet 40 mg PO BEDTIME 09/03/22 03/09/24 03/23/23 History dulaglutide 1.5 mg/0.5 mL 1.5 mg subcut TH@0900 09/04/22 03/09/24 02/26/24 History subcutaneous pen injector (Trulicity) folic acid 1 mg tablet 1 mg PO DAILY@1200 09/04/22 03/09/24 03/23/23 History insulin lispro 100 unit/mL See Rx Instructions .Route .COMPLEX 09/04/22 03/09/24 03/24/23 History subcutaneous solution (Humalog U-100 Insulin) flash glucose scanning reader #1 ea 01/06/23 03/09/24 Unknown History (FreeStyle Pat 2 [place]) flash glucose sensor (FreeStyle #1 ea 01/06/23 03/09/24 Unknown History Apt 2 Sensor kit) ammonium lactate 12 % topical cream 1 appl topical DAILY PRN Wound Care 02/12/23 03/09/24 Unknown History silver sulfadiazine 1 % topical 1 appl topical DAILY PRN Wound Care 02/12/23 03/09/24 Unknown History cream sub-q insulin device, 20 unit 02/12/23 03/09/24 03/24/23 History (V-GO 20 device) warfarin 5 mg tablet 5 mg PO SUTUTH@1800 02/12/23 03/09/24 03/03/24 History metformin 500 mg tablet,extended 500 mg PO BID 11/03/23 03/09/24 Unknown History release 24 hr diltiazem HCl 120 mg tablet 120 mg PO DAILY 03/23/24 Unknown History aspirin 81 mg tablet,delayed 81 mg PO DAILY 05/12/24 Unknown History release (Adult Aspirin Regimen) Physical Exam Vital Signs and Narrative: Vital Signs: Last Vital Signs Temp 97.7 F 12/14/24 10:33 Pulse 80 12/14/24 12:07 Resp 24 H 12/14/24 12:07 BP 133/90 H 12/14/24 14:49 Pulse Ox 94 12/14/24 12:07 O2 Del Method Nasal Cannula 12/14/24 12:07 O2 Flow Rate 4 12/14/24 12:07 Oxygen Flow Rate 4 12/14/24 10:24 BMI result Body Mass Index 31.9 General: AO X 3, no acute distress Resp: CTA bilateral, no accessory muscles used CVS: S1,S2,RRR, bilateral lymphedema GI: soft, non tender, non distended, ventral hernia Neuro: motor grossly intact, alert Psych: appropriate affect, appropriate insight Results Labs 12/14/24 13:18 12/14/24 13:18 Labs: Laboratory Results - last 24 hr 12/14/24 13:18 MCV 82.4 MCH 23.7 L MCHC 28.8 L RDW 19.6 H Plt Count 195 D MPV 9.2 L Immature Gran % (Auto) 0.5 H Neut % (Auto) 73.3 H Lymph % (Auto) 13.8 L [place] % (Auto) 10.0 Eos % (Auto) 1.9 Baso % (Auto) 0.5 Lymph # (Auto) 0.9 L [place] # (Auto) 0.6 Eos # (Auto) 0.1 Baso # (Auto) 0.0 Abs Immat Gran (auto) 0.03 Absolute Neuts (auto) 4.6 Absolute Nucleated RBC 0.000 Nucleated RBC % (auto) 0.0 PT 33.8 H D INR 2.9 H Anion Gap 11 L Estim Creat Clear Calc 79.7 Estimated GFR > 60 Random Glucose 147 H Calcium 8.7 Magnesium 1.8 Total Bilirubin 1.2 H AST 37 ALT 23 Alkaline Phosphatase 95 B-Natriuretic Peptide 545 H Total Protein 7.6 Albumin 3.3 L Digoxin < 0.2 L COVID-19 ([facility]) Negative COVID-19 Clin Com See Note Imaging Radiologist's Impressions: Impressions Chest X-Ray 12/14/24 10:55 IMPRESSION: Acute on chronic airspace disease versus mild to moderate interstitial lung edema. Persistent elevated left hemidiaphragm suggesting left phrenic paralysis/paresis.. Electronically signed by: Anshu Burns MD 12/14/2024 12:16 PM EDT RP Assessment and Plan (1) Acute CHF: Status: Acute Plan 74M PMH chronic diastolic CHF, diabetes, coronary disease status post stent, DVT/PE on warfarin, paroxysmal AFib, obesity, chronic lymphedema, presented with hypoxia Acute hypoxic respiratory failure due to acute on chronic diastolic CHF IV Lasix, wean O2 as tolerated, check ABG Check repeat echo Diabetes Insulin sliding scale Coronary artery disease Antiplatelet, statin DVT/PE Continue warfarin, monitor INR Paroxysmal AFib Continue beta-ela, warfarin Chronic lymphedema Continue compression Obesity Has had recent successful weight loss Full code Quality Stroke Does the patient have a stroke diagnosis?: No VTE Prior VTE?: Yes VTE Risk Level:: Medical - moderate - high VTE Device Contraindication: Treatment Not Indicated VTE Drug Contraindication: N/A - Med Ordered
--- NOTE | 2024-12-14 15:28 | MHC.EDTECH ---
pt ambulated to and from bathroom with a steady gait and use of mobile O2 tank
[2024-12-14] MEDS: 0.9 % Sodium Chloride Flush 3 ML SYRINGE IVFLUSH ×2 (15:33→20:36)
[2024-12-14 16:16] LABS: ABG HCO3 34 mmol/L (22-26); ABG O2 % Saturation 90.0 %
--- NOTE | 2024-12-14 16:16 | PHA.MEDREC ---
Addendum entered by Vitaliy Avila, PharmD 12/14/24 17:37: med rec checked by [facility] Original Note: Pharmacy Consult ? Medication Reconciliation Pharmacy has completed the medication reconciliation. Spoke with pt and he was a poor his historian about some of is medications but was able to confirm a majority of his meds by memory. Pt confirmed he uses Ammonium Lactate and Silver Sulfadiazine as needed after his wound care, he takes Trulicity once a week on and confirmed took it his past 12/09, he has a V-Go 20 pump he changes every 36 hours (pt states he is due to change today) and injects Lispro (pt unsure how many units at this time), pt Metoprolol increased in the last 3-[address] from 100mg BID to 150mg bid and pt confirmed he still takes Warfarin 5mg tabs (5mg 5XW and 2.5mg 2XW), but doesn't remember what dose he last took or what days his previous regimen was at this time.
[2024-12-14 17:02] LABS: Glucose, Whole Blood 98 mg/dL (60-115)
[2024-12-14 17:02] LABS: Glucose, Whole Blood 97 mg/dL (60-115)
[2024-12-14 20:16] LABS: Glucose, Whole Blood 148 mg/dL (60-115)
[2024-12-15] VITALS (17 sets, daily range): BP systolic 85–138; BP diastolic 44–65; PULSE 70–102; RESP 18–42; TEMP 36.2–36.8; O2SAT 88–98; BMI 34.1
[2024-12-15 07:15] LABS: Hematocrit 49.2 % (42.0-52.0); Hemoglobin 13.7 g/dl (14.0-18.0); Mean Corpuscular HGB Conc 27.8 g/dl (31.0-36.0); Mean Corpuscular Hemoglobin 23.5 pg (27.0-33.0); Mean Corpuscular Volume 84.5 fL (80.0-98.0); NRBC Abs Auto 0.000 X10*3/uL (0.0-0.012); NRBC Pct Auto 0.0 /100WBC (0.0-0.2); Platelet Count 181 X10*3/uL (160-400); Red Blood Count 5.82 X10*6/uL (4.60-5.80); White Blood Count 6.7 X10*3/uL (4.8-10.8)
[2024-12-15 07:30] LABS: Anion Gap 11 (12-20); Blood Urea Nitrogen 30 mg/dL (9-16); Calcium 8.4 mg/dL (8.4-10.2); Carbon Dioxide 30 mmol/L (22-29); Chloride 105 mmol/L (96-108); Creatinine Clr Calc Pharmacy 86.8; Estimated Glomerular Filt Rate > 60; INTERNATIONAL NORM RATIO 3.6 (0.9-1.1); Magnesium 1.7 mg/dL (1.6-2.6); Potassium 4.4 mmol/L (3.3-5.1); Prothrombin Time 41.1 SEC (10.9-12.4); Sodium 142 mmol/L (135-145)
[2024-12-15 07:54] LABS: Glucose, Whole Blood 119 mg/dL (60-115)
[2024-12-15] MEDS: Aspirin Enteric Coated 81 MG TABLET.DR PO (09:54)
[2024-12-15] MEDS: 0.9 % Sodium Chloride Flush 3 ML SYRINGE IVFLUSH ×3 (09:55→23:13)
--- NOTE | 2024-12-15 10:39 | HO.WOUND ---
Wound Consult: Initial 74 yr old male admitted [place] [facility]- See progress notes and H&P for detailed history. Wound consult placed for buttock. Patient agreeable to assessment and photo documentation. Etiology: right buttock stage 3 pressure injury Present on Admission - small but full thickness wounding to right buttock. wound bed is moist red and yellow, it sits in an area of scar tissue. surrounding skin and skin to bilateral gluteal cleft with intact blaching purple and hyperpigmentation and raised/thickened skin- likely in the setting of chronic moisture/friction/shearing. Measurements: 0.5cm x 0.5cm x 0.3cm Wound Bed: moist pink/red/yellow Drainage / Odor: scant sanguineous, no odor Edges: ? rolled Tiera wound: ? No Induration, Fluctuance or Warmth noted - hyperpigemtation and blanchable purple discoloration Pain: none Goals of Treatment: ? moist healing, offloading bilateral legs are wrapped in multilayer compression wraps (unna boots), patient reports that he is followed by the outpatient wound center (dr. kwon) weekly and has been using unna boots for about 5 months with improvement in his lower extremity wounds. patient reports these wraps were applied yesterday, today they area clean, intact, with no strikethrough drainage noted, and no slippage noted. Recommend to keep them in place, follow up routinely at wound center, if still inpatient at 1 week, recommend removal of wraps for wound assessment and new dressing application. Bilateral ears noted with intact and blanchable redness, reid foams applied to O2 tubing. Recommendations: 1. Turn and Reposition every 2 hours and as needed for patient comfort. Use pillows or wedges to support off loading positions. 2. Off Load all bony prominences with use of pillows and heel boots if needed. Apply Preventative foams where needed. 3. Monitor for incontinence and moisture control, use barrier creams when needed for prevention and treatment. 4. Provide adequate and supplemental nutrition. 5. Order or Continue low air loss mattress. 6. When applicable maintain blood glucose levels per Providers order. Buttocks: Off Load Pressure with Q2 hr turns and use of pillows - Cleanse with PH balance spray or wipes, pat dry. ?Apply thin layer of Triad to wound bed. Do not remove all of paste between applications as this may cause further skin damage.? Cover with foam dressing to aid in off loading and protection from friction. Change every 3 days and PRN. Re-consult wound care Nurse for wound deterioration or wound changes.
--- NOTE | 2024-12-15 11:15 | HO.PM.IMPN ---
Subjective Subjective Date of Service: 12/15/24 Interval History: sob Physical Exam Exam: Exam: General: AO X 3, no acute distress Resp: CTA bilateral, no accessory muscles used CVS: S1,S2,RRR, bilateral lymphedema GI: soft, non tender, non distended, ventral hernia Neuro: motor grossly intact, alert Psych: appropriate affect, appropriate insight Vital Signs: Vital Signs: Last Vital Signs Temp 98.0 F 12/15/24 07:46 Pulse 102 H 12/15/24 07:46 Resp 20 12/15/24 07:46 BP 109/62 12/15/24 07:46 Pulse Ox 91 L 12/15/24 07:46 O2 Del Method Nasal Cannula 12/15/24 07:46 O2 Flow Rate 3 12/15/24 07:46 Oxygen Flow Rate 4 12/14/24 10:24 BMI result Body Mass Index 34.1 Objective Data Active Medications Acetaminophen (Acetaminophen 325 Mg Tablet) 650 mg PO Q6H PRN PRN Reason: Pain, Mild 1-3,fever,headache Acetazolamide (Acetazolamide Sodium 500 Mg Vial) 500 mg IVPUSH Q12H COUNT INCLUDES THE [facility] Last Admin: 12/15/24 05:57 Dose: 500 mg Documented By: ANTOIC Aspirin (Aspirin Enteric Coated 81 Mg Tablet.) 81 mg PO DAILY COUNT INCLUDES THE [facility] Last Admin: 12/15/24 09:54 Dose: 81 mg Documented By: LUIS Atorvastatin Calcium (Atorvastatin Calcium 40 Mg Tablet) 40 mg PO BEDTIME COUNT INCLUDES THE [facility] Last Admin: 12/14/24 20:16 Dose: 40 mg Documented By: ALYSIA Calcium Carbonate (Calcium Carbonate 750 Mg Tab.Chew) 750 mg PO Q4H PRN PRN Reason: Heartburn Dextrose (Dextrose 50 % 25 Gm/50 Ml Syringe) 25 gm IVPUSH Q15M PRN; Protocol PRN Reason: per Hypoglycemia Standing Ord. Diltiazem HCl (Diltiazem Hcl 60 Mg Tablet) 120 mg PO DAILY COUNT INCLUDES THE [facility]; Protocol Last Admin: 12/15/24 09:54 Dose: 120 mg Documented By: LUIS Finasteride (Finasteride 5 Mg Tablet) 5 mg PO DAILY COUNT INCLUDES THE [facility] Last Admin: 12/15/24 09:54 Dose: 5 mg Documented By: LUIS Folic Acid (Folic Acid 1 Mg Tablet) 1 mg PO DAILY@1200 JOY Glucose (Glucose Gel 15 Gm Gel..Gram.) 15 gm PO Q15M PRN; Protocol PRN Reason: per Hypoglycemia Standing Ord. Insulin Pump (Subcutaneous Insulin Pump) 1 each SUBCUT QIDACHS COUNT INCLUDES THE [facility]; Protocol Last Admin: 12/15/24 09:55 Dose: Not Given Documented By: LUIS Non-Admin Reason: pt refused Magnesium Hydroxide (Milk Of Magnesia 30 Ml Oral.Susp) 30 ml PO DAILY PRN PRN Reason: Constipation Melatonin (Melatonin 3 Mg Tablet) 6 mg PO BEDTIME PRN PRN Reason: Insomnia Metoprolol Tartrate (Metoprolol Tartrate 50 Mg Tablet) 150 mg PO BID@0900,1700 COUNT INCLUDES THE [facility]; Protocol Last Admin: 12/15/24 09:54 Dose: 150 mg Documented By: LUIS Sodium Chloride (0.9 % Sodium Chloride Flush 3 Ml Syringe) 3 ml IVFLUSH QSHIFT COUNT INCLUDES THE [facility] Last Admin: 12/15/24 09:55 Dose: 3 ml Documented By: LUIS Tamsulosin HCl (Tamsulosin Hcl 0.4 Mg Capsule) 0.4 mg PO BEDTIME COUNT INCLUDES THE [facility] Last Admin: 12/14/24 20:16 Dose: 0.4 mg Documented By: ALYSIA Warfarin Sodium (Warfarin Sodium 2.5 Mg Tablet) 2.5 mg PO TUTH@1800 COUNT INCLUDES THE [facility] On Hold: 12/15/24 09:03 Last Admin: 12/14/24 18:02 Dose: 2.5 mg Documented By: JUDIE Warfarin Sodium (Warfarin Sodium 5 Mg Tablet) 5 mg PO SUMOWEFRSA@1800 COUNT INCLUDES THE [facility] Labs 12/15/24 06:17 12/15/24 06:17 Labs: Laboratory Results - last 24 hr 12/14/24 12/14/24 12/14/24 13:18 16:13 16:57 MCV 82.4 MCH 23.7 L MCHC 28.8 L RDW 19.6 H Plt Count 195 D MPV 9.2 L Immature Gran % (Auto) 0.5 H Neut % (Auto) 73.3 H Lymph % (Auto) 13.8 L [place] % (Auto) 10.0 Eos % (Auto) 1.9 Baso % (Auto) 0.5 Lymph # (Auto) 0.9 L [place] # (Auto) 0.6 Eos # (Auto) 0.1 Baso # (Auto) 0.0 Abs Immat Gran (auto) 0.03 Absolute Neuts (auto) 4.6 Absolute Nucleated RBC 0.000 Nucleated RBC % (auto) 0.0 PT 33.8 H D INR 2.9 H O2 Saturation 90.0 ABG pH at Pt Temp 7.33 L ABG pCO2 at Pt Temp 65 H* ABG pO2 at Pt Temp 70 L ABG HCO3 34 H ABG Base Excess (Actual) 6.2 Anion Gap 11 L Estim Creat Clear Calc 79.7 Estimated GFR > 60 POC Glucose 97 Random Glucose 147 H Calcium 8.7 Magnesium 1.8 Total Bilirubin 1.2 H AST 37 ALT 23 Alkaline Phosphatase 95 B-Natriuretic Peptide 545 H Total Protein 7.6 Albumin 3.3 L Digoxin < 0.2 L COVID-19 ([facility]INO) Negative COVID-19 Clin Com See Note 12/14/24 12/14/24 12/15/24 16:59 20:12 06:17 MCV 84.5 MCH 23.5 L MCHC 27.8 L RDW 19.7 H Plt Count 181 MPV 9.3 L Immature Gran % (Auto) Neut % (Auto) Lymph % (Auto) [place] % (Auto) Eos % (Auto) Baso % (Auto) Lymph # (Auto) [place] # (Auto) Eos # (Auto) Baso # (Auto) Abs Immat Gran (auto) Absolute Neuts (auto) Absolute Nucleated RBC 0.000 Nucleated RBC % (auto) 0.0 PT 41.1 H D INR 3.6 H O2 Saturation ABG pH at Pt Temp ABG pCO2 at Pt Temp ABG pO2 at Pt Temp ABG HCO3 ABG Base Excess (Actual) Anion Gap 11 L Estim Creat Clear Calc 86.8 Estimated GFR > 60 POC Glucose 98 148 H Random Glucose 118 H Calcium 8.4 Magnesium 1.7 Total Bilirubin AST ALT Alkaline Phosphatase B-Natriuretic Peptide Total Protein Albumin Digoxin COVID-19 ([facility]) COVID-19 TheraVid Com 12/15/24 07:50 MCV MCH MCHC RDW Plt Count MPV Immature Gran % (Auto) Neut % (Auto) Lymph % (Auto) [place] % (Auto) Eos % (Auto) Baso % (Auto) Lymph # (Auto) [place] # (Auto) Eos # (Auto) Baso # (Auto) Abs Immat Gran (auto) Absolute Neuts (auto) Absolute Nucleated RBC Nucleated RBC % (auto) PT INR O2 Saturation ABG pH at Pt Temp ABG pCO2 at Pt Temp ABG pO2 at Pt Temp ABG HCO3 ABG Base Excess (Actual) Anion Gap Estim Creat Clear Calc Estimated GFR POC Glucose 119 H Random Glucose Calcium Magnesium Total Bilirubin AST ALT Alkaline Phosphatase B-Natriuretic Peptide Total Protein Albumin Digoxin COVID-19 ([facility]) COVID-19 Clin Com Assessment and Plan (1) Acute CHF: Status: Acute Plan 74M PMH chronic diastolic CHF, diabetes, coronary disease status post stent, DVT/PE on warfarin, paroxysmal AFib, obesity, chronic lymphedema, presented with hypoxia Acute hypoxic and hypercapneic respiratory failure due to acute on chronic diastolic CHF IV diamox, wean O2 as tolerated check ct chest Diabetes Insulin sliding scale Coronary artery disease Antiplatelet, statin DVT/PE Continue warfarin, monitor INR Paroxysmal AFib Continue beta-ela, warfarin Chronic lymphedema Continue compression Obesity Has had recent successful weight loss Full code reason for continued hospitalization:hypoxia Quality Stroke Does the patient have a stroke diagnosis?: No VTE Prior VTE?: Yes VTE Risk Level:: Medical - moderate - high VTE Device Contraindication: Treatment Not Indicated VTE Drug Contraindication: N/A - Med Ordered
--- NOTE | 2024-12-15 11:32 | P.CDIM_ITS ---
PROVIDER RESPONSE TEXT: To clarify, the appropriate diagnosis supported by the clinical indicators: Pressure Injury right buttock Stage 3: Probable QUERY TEXT: PHYSICIAN'S DOCUMENTATION REQUEST Date of Query: 12/15/2024 11:24 AM EDT Patient Name: Randy Tna Admit Date: 12/14/2024 Dear Jay Napoles MD, A review of the medical record indicates additional documentation may be needed. Please review below and update the documentation accordingly. Clinical Indicators: Wound care notes 12/15/24 - Right buttock Stage 3 Pressure Injury, Present on Admission. Small but full thickness wound to right buttock. Foam dressing to aid offloading and protection from friction. Based on the above, could you please provide further information regarding the ulcer/wound/injury: Pressure Injury right buttock Stage 3 possible, probable, suspected etc. Other specifics Other (explain) Clinically unable to determine (explain) Thank you, Izabela Pittman, CCS, CDIS Use of terms such as suspected, likely, concern for, or probable (associated with a specific diagnosis that is being evaluated, monitored, or treated as if it exists) are acceptable and can be coded in the inpatient setting, when documented at the time of discharge. Please use your independent medical judgment in providing your response. THIS QUERY IS PART OF THE PERMANENT MEDICAL RECORD
[2024-12-15 12:49] LABS: Venous Blood Gas Refer to POC result
[2024-12-15 12:51] LABS: VBG HCO3 34 mmol/L (22-26); VBG O2 % Saturation 78.0 %
--- NOTE | 2024-12-15 12:52 | MHC.CLN ---
CONSULT PT WITH INCREASED NUTRITION RISK R/T PRESSURE INJURY DIET RX: 1800DM-RECOMMEND INCREASING TO 2200DM TO [facility] RECOMMEND ADDING ENSURE MAX BID TO [facility]OUND [facility] SUPP TO PROVIDE 300KCALS, 60G PROTEIN MONITOR PO INTAKE AND ENCOURAGE SUPPLEMENTS SEE FULL ASSESSMENT
--- NOTE | 2024-12-15 13:11 | PM.EVENT ---
Event Note Date of Service: 12/15/24 Event Note: Patient with worsening hypoxia and hypercapnia and acute metabolic encephalopathy VBG with worsening hypercapnia and respiratory acidosis starting BiPAP and transferring to intensive care unit Time Spent With Patient Time: Total time managing care of this patient today ____ minutes.
--- NOTE | 2024-12-15 13:19 | PC.NURSE ---
MD churchill called to bedside due to increased o2 demand, patient initially increased to 6L on nasal cannula, but was unable to remain at 88-92% so o2 was increased to 8L and patient was placed on 8L via oxymask for potential of mouth breathing. patient remained withing desired 02 sat goal for approximately a half hour, but then began to desat again. patient then gradualy maxed out on oxymask and is now at 88-92%. Provider ordered bipap and ICU transfer at this time. other vital signs remain stable.
--- NOTE | 2024-12-15 13:26 | MHC.SLORD ---
Speech Language Pathology Order Status: Swallow evaluation initiated with thin liquds only, RN consulted. Pt had taken meds whole with water, no issues. Pt ate small amount of lunch (pasta) but endorsed no appetite. Pt on 10L O2 via mask. Pt cervical spine significantly weak, with chin resting on chest. Pt reported he has had weakness of his neck for several years, with no hx of PT intervention. MANAGER ANALYTICAL & RN repositioned pt more upright for trials of solids, but as RN monitoring pt desating into upper 80s. RN contacted MD, pt being transferred to [facility] d/t need for higher level of care. MANAGER ANALYTICAL to assess PO tolerance when respiratory status stable. Recc liquids (thins) and meds in puree.
--- NOTE | 2024-12-15 13:37 | P.EN_ITS ---
Event Note Date of Service: 12/15/24 Event Note: Patient is a 74 Y M w/ insulin-dependent diabetes mellitus, CAD c/b CHF, paroxysmal atrial fibrillation, prior PE on warfarin, and chronic lymphedema, presenting to ED on 12/14 d/t hypoxia noted by wound care, found to have CT C c/f pulmonary edema and/or pneumonia, admitted medicine for management of CHF; on 12/15, patient increasingly fatigued, ABG demonstrating respiratory acidosis; upon evaluation, patient fatigued, though easily arousable, in no acute dist ress, no overt rales, rhonchi, wheezing; S1, S2, no murmurs, rubs, gallops; abdomen non-distended, soft, no appreciable tenderness to palpation; appreciable 1+ pitting edema to bilateral thighs, otherwise warm, well-perfused N: encephalopathy, likely toxic-metabolic, to closely monitor CV: c/f CHF exacerbation, furosemide IV BID; paroxysmal atrial fibrillation, on home warfarin R: mixed respiratory failure, c/f pneumonia vs CHF, BiPAP, wean as tolerated GI: NPO while encephalopathic/on non-invasive; diabetic diet as tolerated : no acute issues H: paroxysmal atrial fibrillation, prior PE on home warfarin ID: c/f pneumonia, ceftriaxone/doxycycline; to follow-up BCx 12/15; of note, IVF deferred given c/f CHF exacerbation E: diabetes mellitus, insulin dependent, insulin sliding scale P: no acute issues Time Spent With Patient Time: Total time managing care of this patient today ____ minutes.
--- NOTE | 2024-12-15 14:01 | MHC.CM.PN ---
Addendum entered by Betsy Lorenz RN 12/15/24 14:11: PT TRANSFERRING TO ICU. Original Note: IMM 12/15/24 DELIVERED TO PT'S S.O./HCP PIPE AT [phone] PER PT REQUEST, CM MET W/PT AT BEDSIDE WHO REPORTS HE LIVES W/PIPE, HAS BEEN DOING WELL AT HOME AND NOT USING ANY ASSISTIVE DEVICES FOR AMBULATION HOWEVER DOES HAVE A CANE/WALKER AT HOME, PT DENIES HAVING ANY HOME SERVICES AND PIPE VERIFIES AND REPORTS PT DOES GO TO [facility] AND THAT THEY SENT PT TO ED D/T LOW O2 SAT, PT AND PIPE'S GOAL IS FOR PT TO RETURN HOME NO SERVICES. PCP/HCP ON FILE VERIFIED BY PT.
[2024-12-15] MEDS: Furosemide 20 MG/2 ML VIAL IVPUSH ×2 (14:10→17:25)
[2024-12-15 16:56] LABS: Glucose, Whole Blood 138 mg/dL (60-115)
[2024-12-15 17:22] LABS: Glucose, Whole Blood 130 mg/dL (60-115)
[2024-12-15 18:32] LABS: Venous Blood Gas Refer to POC result
[2024-12-15 18:33] LABS: VBG HCO3 30 mmol/L (22-26); VBG O2 % Saturation 87.0 %
--- NOTE | 2024-12-15 19:01 | PC.NURSE ---
Addendum entered by Tarun Calderon RN 12/17/24 16:38: redness noted behind pt's ears Addendum entered by Tarun Calderon RN 12/17/24 12:56: md informed of pt's elevated HR sustaining up to 130s. pt remains on bipap d/t blood gas results Addendum entered by Tarun Calderon RN 12/16/24 16:25: ?'ed lasix administration d/t low bp. per MD ok to administer Addendum entered by Tarun Claderon RN 12/16/24 15:57: informed md of pt's low BPs. pt placed on bipap d/t VBG values. Original Note: complete bed bath and CHG performed. pt incont of stool x1. malewick changed. insulin pump removed from abdomen and placed in specimen cup on bedside table. hair cleaned and brushed. wound care performed to loyda area and buttocks.
[2024-12-15 19:24] LABS: Glucose, Whole Blood 90 mg/dL (60-115)
--- NOTE | 2024-12-15 19:56 | PC.NURSE ---
assisted in settling in the patient, patient stable, on oxymask at 15L or Bipap at 40% O2. patient with no complaints of shortness of breath, lungs clear, but dim in the bases. patient medicated per MAR, stable, lethargic, calm and cooperative. See full shift assessment. see skin photos.
--- NOTE | 2024-12-15 20:02 | HO.SKINPHOTO ---
Location: Coccyx Category: Pressure Injury and MASD (update photo) Stage: Previously Stage 3 - Undetermined (? tunneling to wound bed) Location: Abdominal Fold, Panus, Groin, and anal Category: MASD vs Fungal SKin Treatment: Applied Triad
[2024-12-15 23:31] LABS: Venous Blood Gas Refer to POC result
[2024-12-15 23:34] LABS: VBG HCO3 34 mmol/L (22-26); VBG O2 % Saturation 73.0 %
[2024-12-15 23:35] LABS: VBG HCO3 34 mmol/L (22-26); VBG O2 % Saturation 73.0 %
[2024-12-15] MEDS: Albumin Human 25 % 50 ML 100 ML IV (23:36)
[2024-12-15 23:44] LABS: Albumin Level 2.7 g/dL (3.5-5.0); Anion Gap 11 (12-20); Blood Urea Nitrogen 38 mg/dL (9-16); Calcium 8.3 mg/dL (8.4-10.2); Carbon Dioxide 32 mmol/L (22-29); Chloride 105 mmol/L (96-108); Creatinine Clr Calc Pharmacy 76.5; Estimated Glomerular Filt Rate 56; Magnesium 1.7 mg/dL (1.6-2.6); Potassium 4.1 mmol/L (3.3-5.1); Sodium 144 mmol/L (135-145)
[2024-12-16] VITALS (30 sets, daily range): BP systolic 88–128; BP diastolic 46–76; PULSE 76–113; RESP 16–40; TEMP 36.1–37.1; O2SAT 88–100; BMI 32.0
[2024-12-16] MEDS: Albumin Human 25 % 50 ML IV (00:06)
[2024-12-16] MEDS: Albumin Human 25 % 50 ML 100 ML IV ×3 (01:40→08:56)
[2024-12-16 02:35] LABS: Glucose, Whole Blood 87 mg/dL (60-115)
--- NOTE | 2024-12-16 05:11 | PC.NURSE ---
CARE ASSUMED 7PM..REMAINED SOMNOLENT PER SHIFT REPORT...BRIEFLY AWAKE TO VERBAL STIMULI..SQUEEZES HANDS TO COMMAND...WHISPERED AND SHOOK HEAD NO TO SOB...REMAINS ON BIPAP OVERNIGHT..BIPAP= 16/6 FIO2 40% AND BACKUP RATE 20...RR MAINLY 20...Ve 15-16 L/M..LUNGS DIMINISHED..NO CRACKLES...SBP 80'S...PURWIK CATHETER COLLECTING OLAMIDE-YELLOW URINE...PROVIDER UPDATED...REPEAT LABS/VBG DRAWN AND REVIEWED BY PROVIDER...ALBUMEN 12.5G/50ml X4 BAGS INFUSED PER JUN (TOTAL 200ml)...SCHEDULED DOXYCYCLINE (250ML) INFUSED PER JUN...BP IMPROVED TO 90'S-110'S...ATRIAL FIB CONTROLLED RATED...POC GLUCOSE LEVELS STABLE..REMAINS OFF INSULIN PUMP PER SHIFT REPORT...DIAMOX 500MG IV GIVEN THIS AM SCHEDULED PER PROVIDER....MENTATION SOMEWHAT CELL TUBER MACHINE THIS AM..REMAINS SOMNOLENT BUT ROSA AND WHISPERING FEW MORE WORDS
[2024-12-16 06:14] LABS: VBG HCO3 31 mmol/L (22-26); VBG O2 % Saturation 73.0 %
[2024-12-16 06:16] LABS: Venous Blood Gas Refer to POC result
[2024-12-16 06:24] LABS: MANUAL DIFF FLAG NO
[2024-12-16 06:28] LABS: Hematocrit 41.8 % (42.0-52.0); Hemoglobin 12.1 g/dl (14.0-18.0); Imm Gran Abs Auto 0.03 X10*3/uL (0.00-0.03); Imm Gran Pct Auto 0.5 % (0.0-0.4); Lymphocytes Absolute Auto 0.6 X10*3/uL (1.2-4.9); Mean Corpuscular HGB Conc 28.9 g/dl (31.0-36.0); Mean Corpuscular Hemoglobin 23.9 pg (27.0-33.0); Mean Corpuscular Volume 82.4 fL (80.0-98.0); NRBC Abs Auto 0.000 X10*3/uL (0.0-0.012); NRBC Pct Auto 0.0 /100WBC (0.0-0.2); Platelet Count 166 X10*3/uL (160-400); Red Blood Count 5.07 X10*6/uL (4.60-5.80); White Blood Count 5.9 X10*3/uL (4.8-10.8)
[2024-12-16 06:43] LABS: Albumin Level 3.0 g/dL (3.5-5.0); Anion Gap 11 (12-20); Blood Urea Nitrogen 33 mg/dL (9-16); Calcium 8.4 mg/dL (8.4-10.2); Carbon Dioxide 30 mmol/L (22-29); Chloride 107 mmol/L (96-108); Creatinine Clr Calc Pharmacy 84.1; Estimated Glomerular Filt Rate > 60; Magnesium 1.7 mg/dL (1.6-2.6); Potassium 3.9 mmol/L (3.3-5.1); Sodium 144 mmol/L (135-145)
[2024-12-16 06:48] LABS: INTERNATIONAL NORM RATIO 4.6 (0.9-1.1); Prothrombin Time 53.1 SEC (10.9-12.4)
[2024-12-16 08:13] LABS: Glucose, Whole Blood 98 mg/dL (60-115)
[2024-12-16] MEDS: Furosemide 20 MG/2 ML VIAL IVPUSH ×2 (08:32→17:13)
--- NOTE | 2024-12-16 08:40 | P.PNCC_ITS ---
Subjective Subjective Date of Service: 12/16/24 Interval History: interval improvement hypercarbia and mentation Critical Care Time (minutes): 60 Physical Exam 2 Vital Signs: Vital Signs: Last Vital Signs Temp 97.0 F 12/16/24 08:00 Pulse 92 12/16/24 08:00 Resp 28 H 12/16/24 08:00 BP 105/53 L 12/16/24 08:00 Pulse Ox 95 12/16/24 08:00 O2 Del Method BiPAP 12/16/24 08:00 O2 Flow Rate 40 12/15/24 17:00 FiO2 40 12/16/24 08:00 Oxygen Flow Rate 4 12/14/24 10:24 BMI result Body Mass Index 32.0 Const: General: cooperative, healthy appearing, no acute distress, well developed, alert and awake Orientation/consciousness: patient oriented x3 HEENT: Head: Yes normal to inspection, Yes normocephalic and Yes atraumatic Eyes: General: appearance normal, both eyes and all related structures Neck: Other: kyphotic Neck: Yes normal visual inspection, Yes trachea midline and Yes supple Chest: Chest palpation & inspection: normal inspection of the chest Resp: Other: appreciable rhonchi throughut Effort & Inspection: normal respiratory effort Cardio: Rate: regular rate Rhythm: regular rhythm GI: Inspection: Yes normal to inspection, No Abdominal wall edema and No distended Palpation (GI): Soft to palpation, not firm, nontender, no guarding and not rigid Skin: Other: appreciable chronic venous stasis changes bilateral lower extremities Neuro: General: patient oriented x3, tone normal, moves all extremities and no focal motor deficits Extrem: Other: appreciable 1+ pitting edema to bilateral shins General: Yes normal to inspection and Yes capillary refill normal Psych: Appearance: grossly normal Objective Data Labs 12/16/24 05:57 12/16/24 05:57 Labs: Laboratory Results - last 24 hr 12/15/24 12/15/24 12/15/24 12:42 13:42 14:02 WBC RBC Hgb Hct MCV MCH MCHC RDW Plt Count MPV Immature Gran % (Auto) Neut % (Auto) Lymph % (Auto) [place] % (Auto) Eos % (Auto) Baso % (Auto) Lymph # (Auto) [place] # (Auto) Eos # (Auto) Baso # (Auto) Abs Immat Gran (auto) Absolute Neuts (auto) Absolute Nucleated RBC Nucleated RBC % (auto) PT INR VBG pH 7.27 L VBG pCO2 73 VBG pO2 51 VBG HCO3 34 H VBG O2 Saturation 78.0 VBG Base Excess 4.5 Sodium Potassium Chloride Carbon Dioxide Anion Gap BUN Creatinine Estim Creat Clear Calc Estimated GFR POC Glucose Random Glucose Lactic Acid 0.8 Calcium Phosphorus 4.8 H Magnesium Albumin 12/15/24 12/15/24 12/15/24 16:52 17:18 18:28 WBC RBC Hgb Hct MCV MCH MCHC RDW Plt Count MPV Immature Gran % (Auto) Neut % (Auto) Lymph % (Auto) [place] % (Auto) Eos % (Auto) Baso % (Auto) Lymph # (Auto) [place] # (Auto) Eos # (Auto) Baso # (Auto) Abs Immat Gran (auto) Absolute Neuts (auto) Absolute Nucleated RBC Nucleated RBC % (auto) PT INR VBG pH 7.27 L VBG pCO2 65 VBG pO2 53 VBG HCO3 30 H VBG O2 Saturation 87.0 VBG Base Excess 1.7 Sodium Potassium Chloride Carbon Dioxide Anion Gap BUN Creatinine Estim Creat Clear Calc Estimated GFR POC Glucose 138 H 130 H Random Glucose Lactic Acid Calcium Phosphorus Magnesium Albumin 12/15/24 12/15/24 12/15/24 19:20 23:23 23:30 WBC RBC Hgb Hct MCV MCH MCHC RDW Plt Count MPV Immature Gran % (Auto) Neut % (Auto) Lymph % (Auto) [place] % (Auto) Eos % (Auto) Baso % (Auto) Lymph # (Auto) [place] # (Auto) Eos # (Auto) Baso # (Auto) Abs Immat Gran (auto) Absolute Neuts (auto) Absolute Nucleated RBC Nucleated RBC % (auto) PT INR VBG pH 7.31 L 7.31 L VBG pCO2 67 67 VBG pO2 48 48 VBG HCO3 34 H 34 H VBG O2 Saturation 73.0 73.0 VBG Base Excess 5.8 5.8 Sodium 144 Potassium 4.1 Chloride 105 Carbon Dioxide 32 H Anion Gap 11 L BUN 38 H Creatinine 1.27 Estim Creat Clear Calc 76.5 Estimated GFR 56 POC Glucose 90 Random Glucose 106 Lactic Acid Calcium 8.3 L Phosphorus 3.8 Magnesium 1.7 Albumin 2.7 L 12/16/24 12/16/24 12/16/24 02:31 05:57 06:10 WBC 5.9 RBC 5.07 Hgb 12.1 L Hct 41.8 L MCV 82.4 MCH 23.9 L MCHC 28.9 L RDW 18.8 H Plt Count 166 MPV 9.3 L Immature Gran % (Auto) 0.5 H Neut % (Auto) 76.7 H Lymph % (Auto) 9.3 L [place] % (Auto) 12.5 H Eos % (Auto) 0.8 Baso % (Auto) 0.2 Lymph # (Auto) 0.6 L [place] # (Auto) 0.7 Eos # (Auto) 0.1 Baso # (Auto) 0.0 Abs Immat Gran (auto) 0.03 Absolute Neuts (auto) 4.5 Absolute Nucleated RBC 0.000 Nucleated RBC % (auto) 0.0 PT 53.1 H D INR 4.6 H VBG pH 7.35 VBG pCO2 55 VBG pO2 47 VBG HCO3 31 H VBG O2 Saturation 73.0 VBG Base Excess 4.2 Sodium 144 Potassium 3.9 Chloride 107 Carbon Dioxide 30 H Anion Gap 11 L BUN 33 H Creatinine 1.12 Estim Creat Clear Calc 84.1 Estimated GFR > 60 POC Glucose 87 Random Glucose 107 Lactic Acid Calcium 8.4 Phosphorus 2.5 L Magnesium 1.7 Albumin 3.0 L 12/16/24 08:10 WBC RBC Hgb Hct MCV MCH MCHC RDW Plt Count MPV Immature Gran % (Auto) Neut % (Auto) Lymph % (Auto) [place] % (Auto) Eos % (Auto) Baso % (Auto) Lymph # (Auto) [place] # (Auto) Eos # (Auto) Baso # (Auto) Abs Immat Gran (auto) Absolute Neuts (auto) Absolute Nucleated RBC Nucleated RBC % (auto) PT INR VBG pH VBG pCO2 VBG pO2 VBG HCO3 VBG O2 Saturation VBG Base Excess Sodium Potassium Chloride Carbon Dioxide Anion Gap BUN Creatinine Estim Creat Clear Calc Estimated GFR POC Glucose 98 Random Glucose Lactic Acid Calcium Phosphorus Magnesium Albumin Progress Note: A&P Assessment and plan (1) Acute hypercapnic respiratory failure: Status: Acute (2) Pneumonia: Status: Acute (3) CHF (congestive heart failure): Status: Acute Plan Patient is a 74 Y M w/ insulin-dependent diabetes mellitus, CAD c/b CHF, paroxysmal atrial fibrillation, prior PE on warfarin, and chronic lymphedema, presenting to ED on 12/14 d/t hypoxia noted by wound care, found to have CT C c/f pulmonary edema and/or pneumonia, admitted medicine for management of CHF; on 12/15, patient increasingly fatigued, ABG demonstrating respiratory acidosis, transferred ICU for non-invasive ventilation N: encephalopathy, likely toxic-metabolic, improved CV: c/f CHF exacerbation, furosemide IV BID; paroxysmal atrial fibrillation, on home warfarin R: mixed respiratory failure, c/f pneumonia vs CHF, s/p BiPAP, to closely monitor GI: NPO while encephalopathic/on non-invasive; diabetic diet as tolerated : no acute issues H: paroxysmal atrial fibrillation, prior PE on home warfarin ID: c/f pneumonia, ceftriaxone/doxycycline; to follow-up BCx 12/15; of note, IVF deferred given c/f CHF exacerbation E: diabetes mellitus, insulin dependent, insulin sliding scale P: no acute issues Quality Stroke Does the patient have a stroke diagnosis?: No VTE Prior VTE?: Yes VTE Risk Level:: Medical - moderate - high VTE Device Contraindication: Treatment Not Indicated VTE Drug Contraindication: N/A - Med Ordered
[2024-12-16] MEDS: Potassium Phosphate/NS 15 MMOL/250 ML PLAST..BAG 62.5 MMOL IV (08:56)
[2024-12-16] MEDS: Aspirin Enteric Coated 81 MG TABLET.DR PO (10:59)
[2024-12-16 11:18] LABS: E. coli EAEC Not Detected (Not Detect.); E. coli EPEC Not Detected (Not Detect.); E. coli ETEC Not Detected (Not Detect.); E. coli STEC Not Detected (Not Detect.); Shigella sp./EIEC Not Detected (Not Detect.)
[2024-12-16 12:27] LABS: Venous Blood Gas Refer to POC result
[2024-12-16 12:28] LABS: VBG HCO3 33 mmol/L (22-26); VBG O2 % Saturation 82.0 %
[2024-12-16 13:37] LABS: Glucose, Whole Blood 186 mg/dL (60-115)
[2024-12-16 14:28] LABS: CDiff Gene PCR NEGATIVE (Negative)
--- NOTE | 2024-12-16 18:08 | MHC.SL.SWA ---
Speech Pathologist Impression: Risk of Aspiration Due to: Dysphasia Diet Status: Liquid Consistency and Strategies for Safe Swallow: Liquid Intake Recommendation: [place] Thick Liquid Intake Strategies: Solid Food Consistency: Dietary Recommendations: Grnd/Mech Altered (NDD2) Additional Modifications to Solid Foods: Oral Medication Intake: Crushed with Puree Please contact the pharmacy regarding appropriate crushable or liquid drug formulations that are available whenever modified delivery is recommended. Compensatory Strategies and Precautions to be Taken for Safe Swallow: Supervision While Eating and Drinking for Safe Swallow: Direct Supervision (1:1) Foods to Avoid: tough, difficult to chew solids. Swallowing Recommended Treatments: Recommendation for Speech: Inpatient Speech Therapy Comment: Patient presents with vulnerable respiratory status, with difficulty managing thin liquids (triggers significant drop in 02), and generalized weakness. Recommend upgrade from NPO to diet of Ground/Mechanical (NDD2) with NECTAR THICK liquids, by tsp or small, controlled cup sips, pills crushed in puree. Patient will require direct supervision and meals to provide frequent breaks for 02, monitor 02 saturation, discontinue meal if patient has difficulty maintaining adequate oxygenation. , RN notified of recommendations in person. CANCER GENETICS ASSISTANT will continue to follow. Frequency/Duration: Date Range for Service Req: Timeline to reassess: Wall Scraper Clinican/Clinical Fellow: No Supervisory Statement: I have reviewed and agree with the student/clinical fellow's documentation: N/A Speech Language Pathologist: Betsy Snider M.A., [facility]-CANCER GENETICS ASSISTANT
[2024-12-16 19:44] LABS: Glucose, Whole Blood 174 mg/dL (60-115)
[2024-12-16] MEDS: 0.9 % Sodium Chloride Flush 3 ML SYRINGE IVFLUSH (23:21)
[2024-12-17] VITALS (29 sets, daily range): BP systolic 90–125; BP diastolic 51–70; PULSE 92–141; RESP 17–41; TEMP 36.1–37.1; O2SAT 88–100; BMI 31.4
[2024-12-17 02:22] LABS: Glucose, Whole Blood 131 mg/dL (60-115)
[2024-12-17 04:25] LABS: VBG HCO3 25 mmol/L (22-26); VBG O2 % Saturation 73.0 %
[2024-12-17 04:46] LABS: MANUAL DIFF FLAG NO
[2024-12-17 04:47] LABS: Hematocrit 41.3 % (42.0-52.0); Hemoglobin 12.4 g/dl (14.0-18.0); Imm Gran Abs Auto 0.02 X10*3/uL (0.00-0.03); Imm Gran Pct Auto 0.2 % (0.0-0.4); Lymphocytes Absolute Auto 0.6 X10*3/uL (1.2-4.9); Mean Corpuscular HGB Conc 30.0 g/dl (31.0-36.0); Mean Corpuscular Hemoglobin 23.9 pg (27.0-33.0); Mean Corpuscular Volume 79.7 fL (80.0-98.0); NRBC Abs Auto 0.000 X10*3/uL (0.0-0.012); NRBC Pct Auto 0.0 /100WBC (0.0-0.2); Platelet Count 170 X10*3/uL (160-400); Red Blood Count 5.18 X10*6/uL (4.60-5.80); White Blood Count 8.4 X10*3/uL (4.8-10.8)
[2024-12-17 04:53] LABS: INTERNATIONAL NORM RATIO 3.3 (0.9-1.1); Prothrombin Time 38.2 SEC (10.9-12.4)
[2024-12-17 04:56] LABS: Venous Blood Gas Refer to POC result
[2024-12-17 05:09] LABS: Anion Gap 10 (12-20); Blood Urea Nitrogen 33 mg/dL (9-16); Calcium 8.4 mg/dL (8.4-10.2); Carbon Dioxide 26 mmol/L (22-29); Chloride 111 mmol/L (96-108); Creatinine Clr Calc Pharmacy 108.2; Estimated Glomerular Filt Rate > 60; Magnesium 1.7 mg/dL (1.6-2.6); Potassium 3.9 mmol/L (3.3-5.1); Sodium 143 mmol/L (135-145)
[2024-12-17] MEDS: Albumin Human 25 % 50 ML 100 ML IV ×2 (06:12→08:03)
[2024-12-17 07:05] LABS: Glucose, Whole Blood 131 mg/dL (60-115)
[2024-12-17] MEDS: Aspirin Enteric Coated 81 MG TABLET.DR PO (07:41)
[2024-12-17] MEDS: Furosemide 20 MG/2 ML VIAL IVPUSH ×2 (07:41→17:36)
--- NOTE | 2024-12-17 08:39 | PM.CCPN ---
Subjective Subjective Date of Service: 12/17/24 Interval History: no significant overnight events Critical Care Time (minutes): 60 Physical Exam Vital Signs: Vital Signs: Last Vital Signs Temp 97.4 F 12/17/24 08:00 Pulse 124 H 12/17/24 08:00 Resp 20 12/17/24 08:21 BP 111/69 12/17/24 08:00 Pulse Ox 100 12/17/24 07:00 O2 Del Method BiPAP 12/17/24 08:00 O2 Flow Rate 7 12/16/24 17:58 FiO2 40 12/17/24 08:00 Oxygen Flow Rate 4 12/14/24 10:24 BMI result Body Mass Index 31.4 Const: General: cooperative, healthy appearing, comfortable, no acute distress, well developed, alert, awake and Physically active Orientation/consciousness: patient oriented x3 HEENT: Head: Yes normal to inspection, Yes normocephalic and Yes atraumatic Eyes: General: appearance normal, both eyes and all related structures Neck: Neck: Yes normal visual inspection, Yes full ROM, Yes trachea midline and Yes supple Chest: Chest palpation & inspection: normal inspection of the chest Resp: Other: appreciable rhonchi R greater than L; some mild rales and wheezing throughout Effort & Inspection: normal respiratory effort Cardio: Rate: tachycardic Rhythm: abnormal rhythm GI: Inspection: Yes normal to inspection, No Abdominal wall edema and No distended Palpation (GI): Soft to palpation, not firm, nontender, no guarding and not rigid Skin: Other: appreciable chronic venous stasis changes bilaterally Neuro: General: patient oriented x3, tone normal, moves all extremities and no focal motor deficits Extrem: Other: appreciable trace pitting edema to bilateral knees General: Yes normal to inspection, Yes full ROM and Yes capillary refill normal Psych: Appearance: grossly normal Objective Data Labs 12/17/24 04:22 12/17/24 04:22 Labs: Laboratory Results - last 24 hr 12/16/24 12/16/24 12/16/24 08:35 12:23 13:32 WBC RBC Hgb Hct MCV MCH MCHC RDW Plt Count MPV Immature Gran % (Auto) Neut % (Auto) Lymph % (Auto) [place] % (Auto) Eos % (Auto) Baso % (Auto) Lymph # (Auto) [place] # (Auto) Eos # (Auto) Baso # (Auto) Abs Immat Gran (auto) Absolute Neuts (auto) Absolute Nucleated RBC Nucleated RBC % (auto) PT INR VBG pH 7.29 L VBG pCO2 67 VBG pO2 56 VBG HCO3 33 H VBG O2 Saturation 82.0 VBG Base Excess 4.6 Sodium Potassium Chloride Carbon Dioxide Anion Gap BUN Creatinine Estim Creat Clear Calc Estimated GFR POC Glucose 186 H Random Glucose Calcium Phosphorus Magnesium Stl C. cayetanensis PCR Not Detected Stool Rotavirus A PCR Not Detected Stl Adenov F 40/41 PCR Not Detected Stool Astrovirus (PCR) Not Detected Stool Campylobacter PCR Not Detected Stool Cryptosporidium PCR Not Detected Stl Sh Tox Pr E STEC PCR Not Detected Stool E coli O157 PCR Not applicable Stl Enterotoxigenic E PCR Not Detected Stool EPEC (PCR) Not Detected Stool EAEC (PCR) Not Detected Stl E. histolytica PCR Not Detected Stool Giardia Lamblia PCR Not Detected Stl P. shigelloides PCR Not Detected Stool Salmonella PCR Not Detected Stool Sapovirus (PCR) Not Detected Stl Shigella/EIEC PCR Not Detected St Y.enterocolitica PCR Not Detected Stool Vibrio (PCR) Not Detected Stl Vibrio cholerae PCR Not Detected Stl Norovirus GI/GII PCR Not Detected C. difficile Tox B Gene NEGATIVE 12/16/24 12/17/24 12/17/24 19:39 02:17 04:22 WBC 8.4 RBC 5.18 Hgb 12.4 L Hct 41.3 L MCV 79.7 L MCH 23.9 L MCHC 30.0 L RDW 18.7 H Plt Count 170 MPV 9.3 L Immature Gran % (Auto) 0.2 Neut % (Auto) 78.0 H Lymph % (Auto) 6.6 L [place] % (Auto) 13.8 H Eos % (Auto) 1.2 Baso % (Auto) 0.2 Lymph # (Auto) 0.6 L [place] # (Auto) 1.2 Eos # (Auto) 0.1 Baso # (Auto) 0.0 Abs Immat Gran (auto) 0.02 Absolute Neuts (auto) 6.5 Absolute Nucleated RBC 0.000 Nucleated RBC % (auto) 0.0 PT 38.2 H D INR 3.3 H VBG pH 7.33 VBG pCO2 47 VBG pO2 49 VBG HCO3 25 VBG O2 Saturation 73.0 VBG Base Excess -0.5 Sodium 143 Potassium 3.9 Chloride 111 H Carbon Dioxide 26 Anion Gap 10 L BUN 33 H Creatinine 0.87 Estim Creat Clear Calc 108.2 Estimated GFR > 60 POC Glucose 174 H 131 H Random Glucose 149 H Calcium 8.4 Phosphorus 2.5 L Magnesium 1.7 Stl C. cayetanensis PCR Stool Rotavirus A PCR Stl Adenov F 40/41 PCR Stool Astrovirus (PCR) Stool Campylobacter PCR Stool Cryptosporidium PCR Stl Sh Tox Pr E STEC PCR Stool E coli O157 PCR Stl Enterotoxigenic E PCR Stool EPEC (PCR) Stool EAEC (PCR) Stl E. histolytica PCR Stool Giardia Lamblia PCR Stl P. shigelloides PCR Stool Salmonella PCR Stool Sapovirus (PCR) Stl Shigella/EIEC PCR St Y.enterocolitica PCR Stool Vibrio (PCR) Stl Vibrio cholerae PCR Stl Norovirus GI/GII PCR C. difficile Tox B Gene 12/17/24 07:01 WBC RBC Hgb Hct MCV MCH MCHC RDW Plt Count MPV Immature Gran % (Auto) Neut % (Auto) Lymph % (Auto) [place] % (Auto) Eos % (Auto) Baso % (Auto) Lymph # (Auto) [place] # (Auto) Eos # (Auto) Baso # (Auto) Abs Immat Gran (auto) Absolute Neuts (auto) Absolute Nucleated RBC Nucleated RBC % (auto) PT INR VBG pH VBG pCO2 VBG pO2 VBG HCO3 VBG O2 Saturation VBG Base Excess Sodium Potassium Chloride Carbon Dioxide Anion Gap BUN Creatinine Estim Creat Clear Calc Estimated GFR POC Glucose 131 H Random Glucose Calcium Phosphorus Magnesium Stl C. cayetanensis PCR Stool Rotavirus A PCR Stl Adenov F 40/41 PCR Stool Astrovirus (PCR) Stool Campylobacter PCR Stool Cryptosporidium PCR Stl Sh Tox Pr E STEC PCR Stool E coli O157 PCR Stl Enterotoxigenic E PCR Stool EPEC (PCR) Stool EAEC (PCR) Stl E. histolytica PCR Stool Giardia Lamblia PCR Stl P. shigelloides PCR Stool Salmonella PCR Stool Sapovirus (PCR) Stl Shigella/EIEC PCR St Y.enterocolitica PCR Stool Vibrio (PCR) Stl Vibrio cholerae PCR Stl Norovirus GI/GII PCR C. difficile Tox B Gene Microbiology Microbiology Results: Microbiology 12/15/24 14:05 Blood - Venous Blood Culture - Preliminary No growth after 24 hours. 12/15/24 14:03 Blood - Venous Blood Culture - Preliminary No growth after 24 hours. Progress Note: A&P Assessment and plan (1) Respiratory failure with hypoxia and hypercapnia: Status: Acute (2) Pneumonia: Status: Acute (3) CHF (congestive heart failure): Status: Acute Plan Patient is a 74 Y M w/ insulin-dependent diabetes mellitus, CAD c/b CHF, paroxysmal atrial fibrillation, prior PE on warfarin, and chronic lymphedema, presenting to ED on 12/14 d/t hypoxia noted by wound care, found to have CT C c/f pulmonary edema and/or pneumonia, admitted medicine for management of CHF; on 12/15, patient increasingly fatigued, ABG demonstrating respiratory acidosis, transferred ICU for non-invasive ventilation N: encephalopathy, likely toxic-metabolic, improved CV: c/f CHF exacerbation, furosemide IV BID; paroxysmal atrial fibrillation, on home warfarin R: mixed respiratory failure, c/f pneumonia vs CHF, on/off BiPAP, to closely monitor GI: NPO while encephalopathic/on non-invasive; diabetic diet as tolerated : no acute issues; furosemide IV BID, to monitor renal indices H: paroxysmal atrial fibrillation, prior PE on home warfarin ID: c/f pneumonia, ceftriaxone/doxycycline; to follow-up BCx 12/15; of note, IVF deferred given c/f CHF exacerbation E: diabetes mellitus, insulin dependent, insulin sliding scale P: no acute issues Quality Stroke Does the patient have a stroke diagnosis?: No VTE Prior VTE?: Yes VTE Risk Level:: Medical - moderate - high VTE Device Contraindication: Treatment Not Indicated VTE Drug Contraindication: N/A - Med Ordered
[2024-12-17] MEDS: Potassium Phosphate/NS 15 MMOL/250 ML PLAST..BAG 62.5 MMOL IV (09:53)
--- NOTE | 2024-12-17 10:10 | MHC.CLN ---
F/U PT WITH INCREASED NUTRITION RISK R/T PRESSURE INJURY PO INTAKE VARIABLE DIET RX: 2200DM GRD M/S WITH NT LIQ WILL RE-START ENSURE MAX BID TO PROMOTE WOUND HEALING SUPP PROVIDES 300KCALS, 60G PROTEIN MONITOR PO INTAKE AND ENCOURAGE SUPPLEMENTS
[2024-12-17 12:19] LABS: Venous Blood Gas Refer to POC result
[2024-12-17 12:20] LABS: VBG HCO3 30 mmol/L (22-26); VBG O2 % Saturation 54.0 %
[2024-12-17 14:08] LABS: Glucose, Whole Blood 231 mg/dL (60-115)
[2024-12-17 17:28] LABS: Glucose, Whole Blood 170 mg/dL (60-115)
--- NOTE | 2024-12-17 18:26 | MHC.SLORD ---
Speech Language Pathology Order Status: Pt not appropriate for swallow tx, on BiPAP. LEAK INSPECTOR will continue to follow.
[2024-12-17 18:55] LABS: Anion Gap 12 (12-20); Blood Urea Nitrogen 31 mg/dL (9-16); Calcium 8.8 mg/dL (8.4-10.2); Carbon Dioxide 23 mmol/L (22-29); Chloride 111 mmol/L (96-108); Creatinine Clr Calc Pharmacy 113.9; Estimated Glomerular Filt Rate > 60; Magnesium 1.9 mg/dL (1.6-2.6); Potassium 4.1 mmol/L (3.3-5.1); Sodium 142 mmol/L (135-145)
[2024-12-17 20:18] LABS: Glucose, Whole Blood 166 mg/dL (60-115)
[2024-12-17] MEDS: dilTIAZem HCL CD 120 MG CAP.ER.DEG PO (21:39)
[2024-12-17] MEDS: 0.9 % Sodium Chloride Flush 3 ML SYRINGE IVFLUSH (23:08)
[2024-12-18] VITALS (33 sets, daily range): BP systolic 92–141; BP diastolic 52–94; PULSE 48–136; RESP 18–42; TEMP 36.2–36.6; O2SAT 89–100
--- NOTE | 2024-12-18 06:31 | PC.NURSE ---
Assumed care at 1900. Upon initial assessment, patient soft spoken and pleasant, A&Ox4, able to make needs known. Afib on tele, HR 110s-140s. PO cardizem ordered and administered per MAR for HR. Patient switched from nasal BiPAP to full face mask per request, small breaks for ice chips and pills with thickened water. Abdomen?large and round, hernia noted. Passing flatus and clear, mucous-like stools. Patient voiding via male purewick with good effect, draining clear dark yellow urine. Skin with several chronic wounds, see wound note. Repositioned as tolerated Q2HR, bed locked in lowest position, bed alarm on, call rojas within reach. Approx 0230, patient ripping BiPAP mask off and yelling at CCT. This RN to bedside, patient stating you're trying to kill me! Attempted to ask orientation questions, patient paranoid and suspicious and refusing to answer any questions. TAMAR Bashir to bedside to assess. Patient accusatory, yelling, refusing all care. Multiple attempts by multiple staff to reorient patient, though unsuccessful. Precedex gtt ordered but patient refusing to allow staff to touch him. Patient threatened to hit this RN. Offered to call patient's HCP, Ruchi. Patient remained suspicious?and demanded this RN call HCP in front of patient. Several calls made to HCP, without answer.? Approx 0430, Phlebotomy attempted to draw morning labs, which patient?once again began yelling and refused. TAMAR Bashir aware. Patient refusing all medications, interventions, and refusing to keep monitoring equipment on. TAMAR Bashir aware.? Patient currently resting in bed, bed alarm on.
--- NOTE | 2024-12-18 08:28 | MHC.RECOVSUP ---
Pt noted to refuse the bipap this am, per nursing refusing all care at this time. RT reminds pt he can request at any time. aware.
[2024-12-18] MEDS: dexmedeTOMIDine HCL/NS 400 MCG/100 ML PLAST..BAG 29.3 MCG IVCONT ×2 (08:38→20:19)
[2024-12-18] MEDS: 0.9 % Sodium Chloride Flush 3 ML SYRINGE IVFLUSH ×3 (08:38→23:37)
[2024-12-18] MEDS: Furosemide 20 MG/2 ML VIAL IVPUSH ×2 (09:40→17:10)
--- NOTE | 2024-12-18 09:51 | P.PNCC_ITS ---
Subjective Subjective Date of Service: 12/18/24 Interval History: interval development of delirium, paranoia, refusing medications, oxygen supplementation, laboratories; multiple attempts to contact patient's partner unfortunately unsuccessful Critical Care Time (minutes): 60 Physical Exam 2 Vital Signs: Vital Signs: Last Vital Signs Temp 97.9 F 12/18/24 00:00 Pulse 81 12/18/24 09:45 Resp 26 H 12/18/24 09:45 BP 118/58 L 12/18/24 09:45 Pulse Ox 90 L 12/18/24 03:00 O2 Del Method Room Air 12/18/24 09:00 O2 Flow Rate 3 12/17/24 22:00 FiO2 40 12/18/24 02:00 Oxygen Flow Rate 4 12/14/24 10:24 BMI result Body Mass Index 31.4 Const: Other: intermittently agitated; no overt distress General: no acute distress, well developed and Physically active O rientation/consciousness: oriented to person HEENT: Head: Yes normal to inspection, Yes normocephalic and Yes atraumatic Eyes: General: appearance normal, both eyes and all related structures Neck: Neck: Yes normal visual inspection, Yes full ROM, Yes no meningeal signs, Yes trachea midline and Yes supple Chest: Chest palpation & inspection: normal inspection of the chest Resp: Other: no appreciable overt rales, rhonchi, wheezing Effort & Inspection: normal respiratory effort GI: Inspection: Yes normal to inspection, No Abdominal wall edema and No distended Palpation (GI): Soft to palpation, not firm, nontender, no guarding and not rigid Skin: Other: appreciable chronic venous stasis changes bilaterally Neuro: General: oriented to person, tone normal, moves all extremities, no meningeal signs and no focal motor deficits Extrem: Other: appreciable trace pitting edema to bilateral shins General: Yes normal to inspection, Yes full ROM and Yes capillary refill normal Psych: Other: agitation and paranoia Objective Data Labs 12/17/24 04:22 12/17/24 18:21 Labs: Laboratory Results - last 24 hr 12/17/24 12/17/24 12/17/24 12:15 14:04 17:24 VBG pH 7.29 L VBG pCO2 62 VBG pO2 44 VBG HCO3 30 H VBG O2 Saturation 54.0 VBG Base Excess 2.1 Sodium Potassium Chloride Carbon Dioxide Anion Gap BUN Creatinine Estim Creat Clear Calc Estimated GFR POC Glucose 231 H 170 H Random Glucose Calcium Phosphorus Magnesium 12/17/24 12/17/24 18:21 20:15 VBG pH VBG pCO2 VBG pO2 VBG HCO3 VBG O2 Saturation VBG Base Excess Sodium 142 Potassium 4.1 Chloride 111 H Carbon Dioxide 23 Anion Gap 12 BUN 31 H Creatinine 0.82 Estim Creat Clear Calc 113.9 Estimated GFR > 60 POC Glucose 166 H Random Glucose 187 H Calcium 8.8 Phosphorus 3.2 Magnesium 1.9 Microbiology Microbiology Results: Microbiology 12/15/24 14:05 Blood - Venous Blood Culture - Preliminary No growth after 48 hours. 12/15/24 14:03 Blood - Venous Blood Culture - Preliminary No growth after 48 hours. Progress Note: A&P Assessment and plan (1) Respiratory failure with hypoxia and hypercapnia: Status: Acute (2) Pneumonia: Status: Acute (3) Acute CHF: Status: Acute Plan Patient is a 74 Y M w/ insulin-dependent diabetes mellitus, CAD c/b CHF, paroxysmal atrial fibrillation, prior PE on warfarin, and chronic lymphedema, presenting to ED on 12/14 d/t hypoxia noted by wound care, found to have CT C c/f pulmonary edema and/or pneumonia, admitted medicine for management of CHF; on 12/15, patient increasingly fatigued, ABG demonstrating respiratory acidosis, transferred ICU for non-invasive ventilation N: encephalopathy, likely delirium, dexmedetomidine gtt, to continue redirection CV: c/f CHF exacerbation, furosemide IV BID; paroxysmal atrial fibrillation, on home warfarin R: mixed respiratory failure, c/f pneumonia vs CHF, on/off BiPAP, to closely monitor GI: NPO while encephalopathic/on non-invasive; diabetic diet as tolerated : no acute issues; furosemide IV BID, to monitor renal indices H: paroxysmal atrial fibrillation, prior PE on home warfarin; of note, CT C describing possible neoplasm, recommend follow-up CT C w/ IV contrast when appropriate ID: c/f pneumonia, ceftriaxone/doxycycline; to follow-up BCx 12/15; of note, IVF deferred given c/f CHF exacerbation E: diabetes mellitus, insulin dependent, insulin sliding scale P: no acute issues Quality Stroke Does the patient have a stroke diagnosis?: No VTE Prior VTE?: Yes VTE Risk Level:: Medical - moderate - high VTE Device Contraindication: N/A - Device Ordered VTE Drug Contraindication: N/A - Med Ordered
[2024-12-18 10:27] LABS: MANUAL DIFF FLAG NO
[2024-12-18 10:28] LABS: VBG HCO3 20 mmol/L (22-26); VBG O2 % Saturation 83.0 %
[2024-12-18 10:28] LABS: Hematocrit 42.2 % (42.0-52.0); Hemoglobin 12.8 g/dl (14.0-18.0); Imm Gran Abs Auto 0.03 X10*3/uL (0.00-0.03); Imm Gran Pct Auto 0.3 % (0.0-0.4); Lymphocytes Absolute Auto 0.4 X10*3/uL (1.2-4.9); Mean Corpuscular HGB Conc 30.3 g/dl (31.0-36.0); Mean Corpuscular Hemoglobin 23.8 pg (27.0-33.0); Mean Corpuscular Volume 78.6 fL (80.0-98.0); NRBC Abs Auto 0.000 X10*3/uL (0.0-0.012); NRBC Pct Auto 0.0 /100WBC (0.0-0.2); Platelet Count 158 X10*3/uL (160-400); Red Blood Count 5.37 X10*6/uL (4.60-5.80); White Blood Count 8.8 X10*3/uL (4.8-10.8)
[2024-12-18 10:38] LABS: INTERNATIONAL NORM RATIO 2.2 (0.9-1.1); Prothrombin Time 24.7 SEC (10.9-12.4)
[2024-12-18 10:46] LABS: Venous Blood Gas Refer to POC result
[2024-12-18 10:48] LABS: Anion Gap 13 (12-20); Blood Urea Nitrogen 29 mg/dL (9-16); Calcium 8.8 mg/dL (8.4-10.2); Carbon Dioxide 20 mmol/L (22-29); Chloride 114 mmol/L (96-108); Creatinine Clr Calc Pharmacy 121.3; Estimated Glomerular Filt Rate > 60; Magnesium 1.9 mg/dL (1.6-2.6); Potassium 4.1 mmol/L (3.3-5.1); Sodium 143 mmol/L (135-145)
[2024-12-18] MEDS: dexmedeTOMIDine HCL/NS 400 MCG/100 ML PLAST..BAG 23.44 MCG IVCONT (11:21)
[2024-12-18 16:23] LABS: Glucose, Whole Blood 191 mg/dL (60-115)
[2024-12-18 18:48] LABS: Anion Gap 11 (12-20); Blood Urea Nitrogen 31 mg/dL (9-16); Calcium 9.2 mg/dL (8.4-10.2); Carbon Dioxide 22 mmol/L (22-29); Chloride 114 mmol/L (96-108); Creatinine Clr Calc Pharmacy 107.4; Estimated Glomerular Filt Rate > 60; Magnesium 1.9 mg/dL (1.6-2.6); Potassium 4.2 mmol/L (3.3-5.1); Sodium 143 mmol/L (135-145)
--- NOTE | 2024-12-18 19:00 | PC.NURSE ---
Assumed care of this patient at 07:00. On initial interaction with patient he was very confused, disoriented/delirious, paranoid and agitated, and refusing to participate in care or allow service writer advisor to provide care despite attempts to calm and redirect. Despite these attempts, this pt attempted to hit and continued to swear at and verbally threaten staff. Metal Riveter attempted to call this pt's partner/HCP Ruchi as per pt demands and to assist with reassuring, though staff reached voicemail x2, the second call with VM heard by patient on speakerphone. Of note, this patient also had removed his oxygen sensing probe (visualized in his right hand), which he refused replacement of by staff despite multiple attempts. Patient stated Don't bother. I'll just pull the damn thing off anyway . This pt also refused po cardizem and aspirin. This was discussed with Dr. Calzada. HR improved with improved agitation. Metal Riveter was able to initiated precedex gtt per MAR with?+effect. Metal Riveter was able to obtain labs that pt had previously refused, as well as able to place spo2 probe onto this pt's right great toe. Spo2 maintained per CO2 retainer protocol in current orders. Ruchi did come to visit this patient in the later morning before lunch, which was effective in reassuring and redirecting the patient, as evidenced by able to wean off precedex. Foam to coccyx changed though this patient continues to refuse dressing changes to his legs as well as repositioning at times. Bed alarm on and safety measures in place. Please see shift assessments, tasks in worklist, and MAR for full details.? ?
[2024-12-18 21:06] LABS: Glucose, Whole Blood 209 mg/dL (60-115)
[2024-12-19] VITALS (18 sets, daily range): BP systolic 97–134; BP diastolic 62–81; PULSE 62–133; RESP 8–40; TEMP 36.6–37.3; O2SAT 85–95; BMI 31.4
[2024-12-19] MEDS: dexmedeTOMIDine HCL/NS 400 MCG/100 ML PLAST..BAG 29.3 MCG IVCONT ×2 (00:01→03:33)
[2024-12-19 05:13] LABS: VBG HCO3 20 mmol/L (22-26); VBG O2 % Saturation 84.0 %
[2024-12-19 05:20] LABS: Venous Blood Gas Refer to POC result
[2024-12-19 05:25] LABS: MANUAL DIFF FLAG NO
[2024-12-19 05:29] LABS: Hematocrit 45.6 % (42.0-52.0); Hemoglobin 13.6 g/dl (14.0-18.0); Imm Gran Abs Auto 0.01 X10*3/uL (0.00-0.03); Imm Gran Pct Auto 0.1 % (0.0-0.4); Lymphocytes Absolute Auto 0.7 X10*3/uL (1.2-4.9); Mean Corpuscular HGB Conc 29.8 g/dl (31.0-36.0); Mean Corpuscular Hemoglobin 24.0 pg (27.0-33.0); Mean Corpuscular Volume 80.6 fL (80.0-98.0); NRBC Abs Auto 0.000 X10*3/uL (0.0-0.012); NRBC Pct Auto 0.0 /100WBC (0.0-0.2); Platelet Count 154 X10*3/uL (160-400); Red Blood Count 5.66 X10*6/uL (4.60-5.80); White Blood Count 7.2 X10*3/uL (4.8-10.8)
--- NOTE | 2024-12-19 05:41 | PC.NURSE ---
Assumed care at 1900. Upon assessment, patient remains suspicious of staff but overall much more agreeable to some aspects of care. Able to make needs known and rings appropriately. Precedex gtt running per MAR for agitation with good effect. Afib on tele, HR 60s-70s. Patient SpO2 goal 88-92%, saturating well on RA. Abdomen large and round, hyperactive bowel sounds x4. Patient voiding clear concentrated urine via male purewick. Skin with chronic wounds, see wound notes. Patient remains resistive to repositioning and care despite multiple education attempts by this RN. Bed locked in lowest position, bed alarm on, call rojas within reach.?
[2024-12-19 05:47] LABS: Albumin Level 3.1 g/dL (3.5-5.0); Anion Gap 11 (12-20); Blood Urea Nitrogen 38 mg/dL (9-16); Calcium 9.0 mg/dL (8.4-10.2); Carbon Dioxide 22 mmol/L (22-29); Chloride 114 mmol/L (96-108); Creatinine Clr Calc Pharmacy 106.0; Estimated Glomerular Filt Rate > 60; Magnesium 2.0 mg/dL (1.6-2.6); Potassium 4.3 mmol/L (3.3-5.1); Sodium 143 mmol/L (135-145)
[2024-12-19 05:58] LABS: INTERNATIONAL NORM RATIO 2.2 (0.9-1.1); Prothrombin Time 25.4 SEC (10.9-12.4)
--- NOTE | 2024-12-19 06:55 | P.PNCC_ITS ---
Subjective Subjective Date of Service: 12/19/24 Interval History: continues to refuse nocturnal non-invasive, though clinically stable and VBG 12/19 improved Critical Care Time (minutes): 0 Physical Exam 2 Vital Signs: Vital Signs: Last Vital Signs Temp 98.4 F 12/19/24 04:00 Pulse 66 12/19/24 06:00 Resp 31 H 12/19/24 06:00 BP 116/67 12/19/24 06:00 Pulse Ox 90 L 12/19/24 06:00 O2 Del Method Room Air 12/19/24 06:00 O2 Flow Rate 3 12/17/24 22:00 FiO2 40 12/18/24 02:00 Oxygen Flow Rate 4 12/14/24 10:24 BMI result Body Mass Index 31.4 Const: General: cooperative, healthy appearing, comfortable, no acute distress, well developed, alert, awake and Physically active O rientation/consciousness: patient oriented x3 HEENT: Head: Yes normal to inspection, Yes normocephalic and Yes atraumatic Eyes: General: appearance normal, both eyes and all related structures Neck: Neck: Yes normal visual inspection, Yes full ROM, Yes trachea midline and Yes supple Chest: Chest palpation & inspection: normal inspection of the chest Resp: Other: no appreciable overt rales, rhonchi, wheezing Effort & Inspection: normal respiratory effort Cardio: Rate: regular rate Rhythm: abnormal rhythm GI: Inspection: Yes normal to inspection, No Abdominal wall edema and No distended Palpation (GI): Soft to palpation, not firm, nontender, no guarding and not rigid Skin: Other: appreciable chronic venous stasis changes bilateral lower extremities Neuro: General: patient oriented x3, tone normal, moves all extremities and no focal motor deficits Extrem: Other: appreciable 1+ pitting edema to bilateral shins General: Yes normal to inspection, Yes full ROM and Yes capillary refill normal Psych: Other: interval improvement of agitation Appearance: grossly normal Objective Data Labs 12/19/24 05:07 12/19/24 05:07 Labs: Laboratory Results - last 24 hr 12/18/24 12/18/24 12/18/24 10:21 10:24 16:19 WBC 8.8 RBC 5.37 Hgb 12.8 L Hct 42.2 MCV 78.6 L MCH 23.8 L MCHC 30.3 L RDW 19.2 H Plt Count 158 L MPV 8.9 L Immature Gran % (Auto) 0.3 Neut % (Auto) 80.8 H Lymph % (Auto) 4.6 L [place] % (Auto) 13.2 H Eos % (Auto) 0.9 Baso % (Auto) 0.2 Lymph # (Auto) 0.4 L [place] # (Auto) 1.2 Eos # (Auto) 0.1 Baso # (Auto) 0.0 Abs Immat Gran (auto) 0.03 Absolute Neuts (auto) 7.1 Absolute Nucleated RBC 0.000 Nucleated RBC % (auto) 0.0 Hold Purple Top PT 24.7 H D INR 2.2 H VBG pH 7.37 VBG pCO2 34 VBG pO2 55 VBG HCO3 20 L VBG O2 Saturation 83.0 VBG Base Excess -3.6 Sodium 143 Potassium 4.1 Chloride 114 H Carbon Dioxide 20 L Anion Gap 13 BUN 29 H Creatinine 0.77 Estim Creat Clear Calc 121.3 Estimated GFR > 60 POC Glucose 191 H Random Glucose 171 H Calcium 8.8 Phosphorus 3.1 Magnesium 1.9 Albumin Hold Yellow Top 12/18/24 12/18/24 12/18/24 18:07 18:27 21:03 WBC RBC Hgb Hct MCV MCH MCHC RDW Plt Count MPV Immature Gran % (Auto) Neut % (Auto) Lymph % (Auto) [place] % (Auto) Eos % (Auto) Baso % (Auto) Lymph # (Auto) [place] # (Auto) Eos # (Auto) Baso # (Auto) Abs Immat Gran (auto) Absolute Neuts (auto) Absolute Nucleated RBC Nucleated RBC % (auto) Hold Purple Top SEE NOTE PT INR VBG pH VBG pCO2 VBG pO2 VBG HCO3 VBG O2 Saturation VBG Base Excess Sodium 143 Potassium 4.2 Chloride 114 H Carbon Dioxide 22 Anion Gap 11 L BUN 31 H Creatinine 0.87 Estim Creat Clear Calc 107.4 Estimated GFR > 60 POC Glucose 209 H Random Glucose 225 H Calcium 9.2 Phosphorus 3.2 Magnesium 1.9 Albumin Hold Yellow Top See Note 12/19/24 12/19/24 05:07 05:09 WBC 7.2 RBC 5.66 Hgb 13.6 L Hct 45.6 MCV 80.6 MCH 24.0 L MCHC 29.8 L RDW 19.8 H Plt Count 154 L MPV 9.1 L Immature Gran % (Auto) 0.1 Neut % (Auto) 74.4 H Lymph % (Auto) 9.0 L [place] % (Auto) 14.3 H Eos % (Auto) 1.9 Baso % (Auto) 0.3 Lymph # (Auto) 0.7 L [place] # (Auto) 1.0 Eos # (Auto) 0.1 Baso # (Auto) 0.0 Abs Immat Gran (auto) 0.01 Absolute Neuts (auto) 5.4 Absolute Nucleated RBC 0.000 Nucleated RBC % (auto) 0.0 Hold Purple Top PT 25.4 H INR 2.2 H VBG pH 7.36 VBG pCO2 35 VBG pO2 56 VBG HCO3 20 L VBG O2 Saturation 84.0 VBG Base Excess -4.3 Sodium 143 Potassium 4.3 Chloride 114 H Carbon Dioxide 22 Anion Gap 11 L BUN 38 H Creatinine 0.88 Estim Creat Clear Calc 106.0 Estimated GFR > 60 POC Glucose Random Glucose 187 H Calcium 9.0 Phosphorus 3.5 Magnesium 2.0 Albumin 3.1 L Hold Yellow Top Microbiology Microbiology Results: Microbiology 12/15/24 14:05 Blood - Venous Blood Culture - Preliminary No growth after 48 hours. 12/15/24 14:03 Blood - Venous Blood Culture - Preliminary No growth after 48 hours. Progress Note: A&P Assessment and plan (1) Respiratory failure with hypoxia and hypercapnia: Status: Acute (2) Pneumonia: Status: Acute (3) Acute CHF: Status: Acute Plan Patient is a 74 Y M w/ insulin-dependent diabetes mellitus, CAD c/b CHF, paroxysmal atrial fibrillation, prior PE on warfarin, and chronic lymphedema, presenting to ED on 12/14 d/t hypoxia noted by wound care, found to have CT C c/f pulmonary edema and/or pneumonia, admitted medicine for management of CHF; on 12/15, patient increasingly fatigued, ABG demonstrating respiratory acidosis, transferred ICU for non-invasive ventilation N: encephalopathy, likely delirium, s/p dexmedetomidine gtt CV: c/f CHF exacerbation, furosemide IV BID; paroxysmal atrial fibrillation, on home warfarin R: mixed respiratory failure, c/f pneumonia vs CHF, on/off BiPAP, to closely monitor GI: NPO while encephalopathic/on non-invasive; diabetic diet as tolerated : no acute issues; furosemide IV BID, to monitor renal indices H: paroxysmal atrial fibrillation, prior PE on home warfarin; of note, CT C describing possible neoplasm, recommend follow-up CT C w/ IV contrast when appropriate ID: c/f pneumonia, ceftriaxone/doxycycline; to follow-up BCx 12/15; of note, IVF deferred given c/f CHF exacerbation E: diabetes mellitus, insulin dependent, insulin sliding scale P: no acute issues Quality Stroke Does the patient have a stroke diagnosis?: No VTE Prior VTE?: Yes VTE Risk Level:: Medical - moderate - high VTE Device Contraindication: N/A - Device Ordered VTE Drug Contraindication: N/A - Med Ordered
[2024-12-19] MEDS: Albumin Human 25 % 50 ML 100 ML IV (07:07)
[2024-12-19] MEDS: dexmedeTOMIDine HCL/NS 400 MCG/100 ML PLAST..BAG 23.44 MCG IVCONT (07:07)
[2024-12-19 07:31] LABS: Glucose, Whole Blood 180 mg/dL (60-115)
[2024-12-19] MEDS: Furosemide 20 MG/2 ML VIAL IVPUSH ×2 (08:25→17:27)
[2024-12-19] MEDS: Aspirin Enteric Coated 81 MG TABLET.DR PO (08:25)
[2024-12-19] MEDS: 0.9 % Sodium Chloride Flush 3 ML SYRINGE IVFLUSH ×3 (08:26→23:39)
--- NOTE | 2024-12-19 09:02 | HE.PHANOTE ---
DOXY IV TO PO PATIENT MEETS PROTOCOL FOR IV TO PO SWITCH. 100MG DOXY CHANGE TO PO. NEXT DOSE 1200
[2024-12-19 11:26] LABS: Glucose, Whole Blood 229 mg/dL (60-115)
--- NOTE | 2024-12-19 15:09 | PC.NURSE ---
Assumed care at 0700- precedex gtt weaned off per JUN.Pt. drowsy at times but A&Ox4, vague, resistive to care at times. denies pain. afib on tele, rate 60-100s. At approx 1330 HR sustaining 110s-140s- notified, lopressor given per JUN. Pt. with moist loose cough, encouraged to expectorate sputum. O2 goal 88-92%, Pt. 86-87% on RA, placed on 1L NC. Pt. with moderate amt. liquid mucousy stool. Male purewick in place draining concentrated dark urine. Pt. refusing repositioning at times, educated on importance. RN report given to Yanna, pt. downgraded to 485.
[2024-12-19 16:11] LABS: Glucose, Whole Blood 152 mg/dL (60-115)
[2024-12-19 18:17] LABS: Anion Gap 17 (12-20); Blood Urea Nitrogen 43 mg/dL (9-16); Calcium 9.4 mg/dL (8.4-10.2); Carbon Dioxide 25 mmol/L (22-29); Chloride 109 mmol/L (96-108); Creatinine Clr Calc Pharmacy 94.2; Estimated Glomerular Filt Rate > 60; Magnesium 2.2 mg/dL (1.6-2.6); Potassium 3.9 mmol/L (3.3-5.1); Sodium 147 mmol/L (135-145)
[2024-12-19 20:56] LABS: Glucose, Whole Blood 188 mg/dL (60-115)
[2024-12-20] VITALS (7 sets, daily range): BP systolic 108–134; BP diastolic 57–75; PULSE 98–136; RESP 17–22; TEMP 36.6–37.2; O2SAT 87–92; BMI 31.1
[2024-12-20 07:22] LABS: Glucose, Whole Blood 187 mg/dL (60-115)
[2024-12-20] MEDS: Aspirin Enteric Coated 81 MG TABLET.DR PO (07:35)
[2024-12-20 08:13] LABS: MANUAL DIFF FLAG NO
[2024-12-20 08:22] LABS: Hematocrit 48.0 % (42.0-52.0); Hemoglobin 14.4 g/dl (14.0-18.0); Imm Gran Abs Auto 0.05 X10*3/uL (0.00-0.03); Imm Gran Pct Auto 0.5 % (0.0-0.4); Lymphocytes Absolute Auto 0.4 X10*3/uL (1.2-4.9); Mean Corpuscular HGB Conc 30.0 g/dl (31.0-36.0); Mean Corpuscular Hemoglobin 23.6 pg (27.0-33.0); Mean Corpuscular Volume 78.8 fL (80.0-98.0); NRBC Abs Auto 0.000 X10*3/uL (0.0-0.012); NRBC Pct Auto 0.0 /100WBC (0.0-0.2); Platelet Count 211 X10*3/uL (160-400); Red Blood Count 6.09 X10*6/uL (4.60-5.80); White Blood Count 10.3 X10*3/uL (4.8-10.8)
[2024-12-20 08:23] LABS: INTERNATIONAL NORM RATIO 2.0 (0.9-1.1); Prothrombin Time 23.4 SEC (10.9-12.4)
[2024-12-20 08:45] LABS: Anion Gap 12 (12-20); Blood Urea Nitrogen 42 mg/dL (9-16); Calcium 9.0 mg/dL (8.4-10.2); Carbon Dioxide 22 mmol/L (22-29); Chloride 112 mmol/L (96-108); Creatinine Clr Calc Pharmacy 101.0; Estimated Glomerular Filt Rate > 60; Magnesium 2.0 mg/dL (1.6-2.6); Potassium 3.8 mmol/L (3.3-5.1); Sodium 142 mmol/L (135-145)
[2024-12-20] MEDS: Furosemide 20 MG/2 ML VIAL IVPUSH (09:26)
[2024-12-20] MEDS: 0.9 % Sodium Chloride Flush 3 ML SYRINGE IVFLUSH ×3 (09:26→23:30)
--- NOTE | 2024-12-20 09:55 | P.PNIM_ITS ---
Subjective Subjective Date of Service: 12/20/24 Interval History: poor sleep Physical Exam 2 Exam: Exam: General: AO X 3, no acute distress, hunched over, flat affect Resp: diminished bilateral, accessory muscles used CVS: S1,S2,Rapid, irregular GI: soft, non tender, non distended, hernia Vital Signs: Vital Signs: Last Vital Signs Temp 98.7 F 12/20/24 07:48 Pulse 136 H 12/20/24 07:48 Resp 20 12/20/24 07:48 BP 134/75 12/20/24 07:48 Pulse Ox 87 L 12/20/24 07:48 O2 Del Method Nasal Cannula 12/20/24 07:48 O2 Flow Rate 5 12/20/24 07:48 FiO2 40 12/18/24 02:00 Oxygen Flow Rate 4 12/14/24 10:24 BMI result Body Mass Index 31.1 Objective Data Active Medications Acetaminophen (Acetaminophen 325 Mg Tablet) 650 mg PO Q6H PRN PRN Reason: Pain, Mild 1-3,fever,headache Aspirin (Aspirin Enteric Coated 81 Mg Tablet.) 81 mg PO DAILY [facility] Last Admin: 12/20/24 07:35 Dose: 81 mg Documented By: MINERVA Atorvastatin Calcium (Atorvastatin Calcium 40 Mg Tablet) 40 mg PO BEDTIME [facility] Last Admin: 12/19/24 21:32 Dose: 40 mg Documented By: MARILYN Ceftriaxone Sodium (Ceftriaxone Sodium 1 Gm Vial) 1 gm IVPUSH Q24H [facility] Last Admin: 12/19/24 11:51 Dose: 1 gm Documented By: BALAJI Dextrose (Dextrose 50 % 25 Gm/50 Ml Syringe) 25 gm IVPUSH Q15M PRN; Protocol PRN Reason: per Hypoglycemia Standing Ord. Doxycycline Monohydrate (Doxycycline Monohydrate 100 Mg Capsule) 100 mg PO Q12H [facility] Last Admin: 12/19/24 22:50 Dose: 100 mg Documented By: MARILYN Furosemide (Furosemide 20 Mg/2 Ml Vial) 20 mg IVPUSH BID@0900,1800 [facility]; Protocol Last Admin: 12/20/24 09:26 Dose: 20 mg Documented By: MINERVA Glucose (Glucose Gel 15 Gm Gel..Gram.) 15 gm PO Q15M PRN; Protocol PRN Reason: per Hypoglycemia Standing Ord. Dexmedetomidine HCl (Precedex) 400 mcg in 100 mls @ 0 mls/hr IVCONT .Q0M [facility]; Protocol Last Titration: 12/19/24 08:40 Dose: 0 mcg/kg/hr, 0 mls/hr Documented By: BALAJI Insulin Human Lispro (Insulin Lispro 100 Unit/Ml 3 Ml Vial) 0 unit SUBCUT QIDACHS [facility]; Protocol Last Admin: 12/20/24 07:35 Dose: 2 unit Documented By: MINERVA Metoprolol Tartrate (Metoprolol Tartrate 25 Mg Tablet) 25 mg PO QID [facility]; Protocol Last Admin: 12/20/24 07:35 Dose: 25 mg Documented By: MINERVA Olanzapine (Olanzapine 10 Mg Vial) 5 mg IM DAILY PRN PRN Reason: Agitation Sodium Chloride (0.9 % Sodium Chloride Flush 3 Ml Syringe) 3 ml IVFLUSH QSHIFT [facility] Last Admin: 12/20/24 09:26 Dose: 3 ml Documented By: MINERVA Warfarin Sodium (Warfarin Sodium 2.5 Mg Tablet) 2.5 mg PO TUTH@1800 [facility] Last Admin: 12/14/24 18:02 Dose: 2.5 mg Documented By: JUDIE Warfarin Sodium (Warfarin Sodium 5 Mg Tablet) 5 mg PO SUMOWEFRSA@1800 [facility] Last Admin: 12/19/24 17:27 Dose: 5 mg Documented By: MINERVA Labs 12/20/24 07:34 12/20/24 07:34 Labs: Laboratory Results - last 24 hr 12/19/24 12/19/24 12/19/24 11:22 16:07 17:40 MCV MCH MCHC RDW Plt Count MPV Immature Gran % (Auto) Neut % (Auto) Lymph % (Auto) [place] % (Auto) Eos % (Auto) Baso % (Auto) Lymph # (Auto) [place] # (Auto) Eos # (Auto) Baso # (Auto) Abs Immat Gran (auto) Absolute Neuts (auto) Absolute Nucleated RBC Nucleated RBC % (auto) PT INR Anion Gap 17 Estim Creat Clear Calc 94.2 Estimated GFR > 60 POC Glucose 229 H 152 H Random Glucose 107 Calcium 9.4 Phosphorus 4.2 Magnesium 2.2 12/19/24 12/20/24 12/20/24 20:49 06:58 07:34 MCV 78.8 L MCH 23.6 L MCHC 30.0 L RDW 20.2 H Plt Count 211 D MPV 9.0 L Immature Gran % (Auto) 0.5 H Neut % (Auto) 83.3 H Lymph % (Auto) 4.0 L [place] % (Auto) 11.8 H Eos % (Auto) 0.2 Baso % (Auto) 0.2 Lymph # (Auto) 0.4 L [place] # (Auto) 1.2 Eos # (Auto) 0.0 Baso # (Auto) 0.0 Abs Immat Gran (auto) 0.05 H Absolute Neuts (auto) 8.6 H Absolute Nucleated RBC 0.000 Nucleated RBC % (auto) 0.0 PT 23.4 H INR 2.0 H Anion Gap 12 Estim Creat Clear Calc 101.0 Estimated GFR > 60 POC Glucose 188 H 187 H Random Glucose 193 H Calcium 9.0 Phosphorus 3.4 Magnesium 2.0 Assessment and Plan (1) Acute CHF: Status: Acute Plan 74M PMH chronic diastolic CHF, diabetes, coronary disease status post stent, DVT/PE on warfarin, paroxysmal AFib, obesity, chronic lymphedema, presented 12/14/24 with hypoxia course complicated by hypercapnea requiring bipap and icu transfer 12/15/24. was treated with bipa, iv diuretics, precedex(for delerium), downgraded 12/19/24 acute metabolic encephalopathy and icu delerium due to Acute hypoxic and hypercapneic respiratory failure due to acute on chronic diastolic CHF patient now euvolemic, holding further diuretics, conitnue nippv at night check repeat cxr and wean o2 possible pna rocephin, doxy Diabetes Insulin sliding scale Coronary artery disease Antiplatelet, statin DVT/PE Continue warfarin, monitor INR Paroxysmal AFib with rvr Continue beta-ela, warfarin Chronic lymphedema Continue compression Obesity Has had recent successful weight loss Full code reason for continued hospitalization:hypoxia Quality Stroke Does the patient have a stroke diagnosis?: No VTE Prior VTE?: Yes VTE Risk Level:: Medical - moderate - high VTE Device Contraindication: N/A - Device Ordered VTE Drug Contraindication: N/A - Med Ordered
--- NOTE | 2024-12-20 10:19 | MHC.SL.SWA ---
Speech Pathologist Impression: Mild to moderate dysphagia Risk of Aspiration Due to: Weaness Deconditioning Respiratory compromise Physical limitations (? C spine pathology) Dysphasia Diet Status: Liquid Consistency and Strategies for Safe Swallow: Liquid Intake Recommendation: Thin Liquid Intake Strategies: Small Sips Solid Food Consistency: Dietary Recommendations: Grnd/Mech Altered (NDD2) Additional Modifications to Solid Foods: Oral Medication Intake: Crushed with Puree Please contact the pharmacy regarding appropriate crushable or liquid drug formulations that are available whenever modified delivery is recommended. Compensatory Strategies and Precautions to be Taken for Safe Swallow: Sitting Upright (90 deg) Liquids from Straw Small Bites and Sips Rate of Ingestion Change Supervision While Eating and Drinking for Safe Swallow: Direct Supervision (1:1) Foods to Avoid: tough, difficult to chew solids. Swallowing Recommended Treatments: Compens. Strategy Educat. Recommendation for Speech: Inpatient Speech Therapy Comment: 12/20: Pt seen for dysphagia tx. RN reported pt is back to 5L O2 via NC, sats in upper 80s. Pt endorsed eating breakfast, did not want to have any food this visit. Pt has been on NTL for several days, is now requesting ice water. Pt alert, able to safely follow cues to reduce risk for aspiration. Trials of ice water and gingerale WFL; pt needs to use a straw d/t neck position limitations. O2 sats remained stable in upper 80s across trials. Chronic cough persists, not considered d/t aspiration of thins. Education provided to pt who verbalized understanding of physiological function of swallow mechanism/airway protection. Pt unable to maintained upright head positioning, recc PT consultation to evaluate for etiology. [facility] continues to follow, MD and RN notified of changes made to pt liquid consistency. Recc NDD2 with thins, aspiration precautions, straws ok. Frequency/Duration: Date Range for Service Req: Timeline to reassess: Drying Supervisor Clinican/Clinical Fellow: No Supervisory Statement: I have reviewed and agree with the student/clinical fellow's documentation: N/A Speech Language Pathologist: Rachel Sanders M.S., [facility]
[2024-12-20 11:25] LABS: Glucose, Whole Blood 239 mg/dL (60-115)
--- NOTE | 2024-12-20 14:22 | MHC.CLN ---
F/U PT WITH INCREASED NUTRITION RISK R/T PRESSURE INJURY PO INTAKE VARIABLE, 0-100% SEEN BY BOARD CERTIFIED FAMILY PHYSICIAN 12/20 WITH LIQUIDS CHANGED TO THIN DIET=DIABETIC 2000 KCAL, GROUND. CONTINUE ENSURE MAX BID TO PROMOTE WOUND HEALING SUPP PROVIDES 300KCALS, 60G PROTEIN MONITOR PO INTAKE AND ENCOURAGE SUPPLEMENTS
[2024-12-20 16:18] LABS: Glucose, Whole Blood 221 mg/dL (60-115)
[2024-12-20 16:34] LABS: VBG HCO3 23 mmol/L (22-26); VBG O2 % Saturation 92.0 %
[2024-12-20 16:49] LABS: Anion Gap 13 (12-20); Blood Urea Nitrogen 45 mg/dL (9-16); Calcium 8.9 mg/dL (8.4-10.2); Carbon Dioxide 21 mmol/L (22-29); Chloride 111 mmol/L (96-108); Creatinine Clr Calc Pharmacy 109.3; Estimated Glomerular Filt Rate > 60; Magnesium 1.9 mg/dL (1.6-2.6); Potassium 4.1 mmol/L (3.3-5.1); Sodium 141 mmol/L (135-145)
[2024-12-20 17:42] LABS: Venous Blood Gas Refer to POC result
[2024-12-20 20:47] LABS: Glucose, Whole Blood 260 mg/dL (60-115)
[2024-12-21] VITALS (15 sets, daily range): BP systolic 100–142; BP diastolic 57–82; PULSE 87–140; RESP 22–44; TEMP 36.3–37.2; O2SAT 88–97
--- NOTE | 2024-12-21 01:40 | PC.NURSE ---
Addendum entered by Mikhail Navarro RN 12/21/24 06:42: DR LUJAN AT BEDSIDE..CXR DONE...ATRIAL FIB HR 130-140..CARDIZEM 10 MG IV BOLUS GIVEN..TO ASSESS RESPONSE PER ..RESERVATIONS MANAGER CUONG STAT BLOODWORK...CURRENTLY OXIMASK 7 L/M AND SAO2 89%..REMAINS CONFUSED Addendum entered by Mikhail Navarro RN 12/21/24 05:51: INCREASED O2 NEEDS ..CURRENTLY OXIMASK 7 L/M WITH SAO2 87-88%...CONFUSED/AGITATED..HR 120'S/ATRIAL FIB DESPITE 2ND DOSE OF LOPRESSOR..HOSPITALIST UPDATED..LASIX 40MG IV GIVEN..FOR STAT CXR AND LABS PER ...ATRIAL FIB HR 120'S-130'S..REFUSED XOPENEX UPDRAFT FROM RT Original Note: CARE ASSUMED 7PM..PATIENT AWAKE..DISORIENTED TO PLACE/TIME....FREQUENT REORIENTATION GIVEN....ATRIAL FIB HR 89'S-100'S....O2 2 L/M CANNULA AT SHIFT CHANGE....O2 TITRATED TO 3 L/M TO MAINTAIN SAO2 GOAL 88-92%...LOOSE COUGH..BP STABLE ..PURWIK EXTERNAL CATHETER OLAMIDE-YELLOW URINE...INCREASED HR 120'S-130'S 1AM DESPITE PO LOPRESSOR...INCREASED CONFUSION..STATED I'M AT HOME..WHERE IS MY STUFF ...PLACED ON NOCTURNAL BIPAP PER PREVIOUS ORDERS..HOSPITALIST UPDATED..LOPRESSOR 5MG IV GIVEN PER JUN WITH IMPROVED HR TO 100'S-110'S..REFUSED BIPAP AFTER 20 ...RETURNED TO O2 CANNULA 3 L/M AND TITRATED TO 4 L/M CANNULA
[2024-12-21] MEDS: Furosemide 40 MG/4 ML VIAL IVPUSH (05:43)
--- NOTE | 2024-12-21 06:34 | PM.EVENT ---
Event Note Date of Service: 12/21/24 Event Note: 1:10 AM - Patient has developed rapid a-fib despite taking lopressor 25 mg PO qid. Lopressor 5 mg IV q15m prn elevated HR ordered. 5:32 AM - Patient now requiring 7L/min of supplemental O2 via oxymask as O2 sats dropped to 87-88%. HR improved after 2 dosis of Lopressor 5 mg IV X2 but increased to 130s again. Patient is not tolerating nocturnal BiPAP. Patient has been evaluated. He denied shortness on breath or chest pain. Cardiopulmonary exam remarkable for tachycardia with irregular rhythm, decreased breath sounds at bases without wheezing, rhonchi or crackles. Lasix 40 mg IV and Xopenex 1.25 mg neb ordered. We will also provide order tx with diltiazem 10 mg IV push and to consider diltiazem infusion if appropriate. CXR ordered and BNP added to morning labs. Time Spent With Patient Time: Total time managing care of this patient today ____ minutes.
[2024-12-21 06:41] LABS: Venous Blood Gas Refer to POC result
[2024-12-21 06:42] LABS: MANUAL DIFF FLAG NO
[2024-12-21 06:49] LABS: INTERNATIONAL NORM RATIO 2.5 (0.9-1.1); Prothrombin Time 29.2 SEC (10.9-12.4)
[2024-12-21 06:57] LABS: Hematocrit 49.4 % (42.0-52.0); Hemoglobin 15.0 g/dl (14.0-18.0); Imm Gran Abs Auto 0.05 X10*3/uL (0.00-0.03); Imm Gran Pct Auto 0.5 % (0.0-0.4); Lymphocytes Absolute Auto 0.5 X10*3/uL (1.2-4.9); Mean Corpuscular HGB Conc 30.4 g/dl (31.0-36.0); Mean Corpuscular Hemoglobin 23.7 pg (27.0-33.0); Mean Corpuscular Volume 77.9 fL (80.0-98.0); NRBC Abs Auto 0.000 X10*3/uL (0.0-0.012); NRBC Pct Auto 0.0 /100WBC (0.0-0.2); Platelet Count 239 X10*3/uL (160-400); Red Blood Count 6.34 X10*6/uL (4.60-5.80); White Blood Count 10.8 X10*3/uL (4.8-10.8)
[2024-12-21 07:07] LABS: Anion Gap 12 (12-20); Blood Urea Nitrogen 46 mg/dL (9-16); Calcium 9.3 mg/dL (8.4-10.2); Carbon Dioxide 23 mmol/L (22-29); Chloride 110 mmol/L (96-108); Creatinine Clr Calc Pharmacy 99.9; Estimated Glomerular Filt Rate > 60; Magnesium 1.9 mg/dL (1.6-2.6); Potassium 4.3 mmol/L (3.3-5.1); Sodium 141 mmol/L (135-145)
[2024-12-21 07:10] LABS: B Type Natriuretic Peptide 484 pg/mL (<100)
[2024-12-21 07:41] LABS: Glucose, Whole Blood 205 mg/dL (60-115)
[2024-12-21] MEDS: 0.9 % Sodium Chloride Flush 3 ML SYRINGE IVFLUSH (08:20)
[2024-12-21] MEDS: Aspirin Enteric Coated 81 MG TABLET.DR PO (08:26)
[2024-12-21 08:42] LABS: Venous Blood Gas Refer to POC result
[2024-12-21 09:28] LABS: ABG HCO3 26 mmol/L (22-26); ABG O2 % Saturation 87.0 %
--- NOTE | 2024-12-21 10:19 | HO.PM.IMPN ---
Subjective Subjective Date of Service: 12/21/24 Interval History: refused cpap last night, worsening hypoxia today Physical Exam Exam: Exam: obtunded, ill appearing, crackles bilateral, cervical hyphosis, abd soft non tender, no edema, Vital Signs: Vital Signs: Last Vital Signs Temp 97.4 F 12/21/24 07:50 Pulse 134 H 12/21/24 07:57 Resp 40 H 12/21/24 09:44 BP 142/81 H 12/21/24 07:57 Pulse Ox 91 L 12/21/24 07:50 O2 Del Method Oxymask 12/21/24 07:50 O2 Flow Rate 7 12/21/24 07:50 FiO2 40 12/18/24 02:00 Oxygen Flow Rate 4 12/14/24 10:24 BMI result Body Mass Index 31.1 Objective Data Active Medications Acetaminophen (Acetaminophen 325 Mg Tablet) 650 mg PO Q6H PRN PRN Reason: Pain, Mild 1-3,fever,headache Last Admin: 12/20/24 15:34 Dose: 650 mg Documented By: AGUSTO Aspirin (Aspirin Enteric Coated 81 Mg Tablet.) 81 mg PO DAILY [facility] Last Admin: 12/21/24 08:26 Dose: 81 mg Documented By: BUNNY Atorvastatin Calcium (Atorvastatin Calcium 40 Mg Tablet) 40 mg PO BEDTIME [facility] Last Admin: 12/20/24 20:54 Dose: 40 mg Documented By: ANTONINO Dextrose (Dextrose 50 % 25 Gm/50 Ml Syringe) 25 gm IVPUSH Q15M PRN; Protocol PRN Reason: per Hypoglycemia Standing Ord. Glucose (Glucose Gel 15 Gm Gel..Gram.) 15 gm PO Q15M PRN; Protocol PRN Reason: per Hypoglycemia Standing Ord. Diltiazem HCl 125 mg/ Sodium (Chloride) 125 mls @ 0 mls/hr IVCONT .Q0M [facility]; Protocol Last Admin: 12/21/24 07:57 Dose: 10 mg/hr, 10 mls/hr Documented By: BUNNY Piperacillin Sod/Tazobactam (Sod 4.5 gm/ Sodium Chloride) 100 mls @ 200 mls/hr IV Q6H [facility] Insulin Human Lispro (Insulin Lispro 100 Unit/Ml 3 Ml Vial) 0 unit SUBCUT QIDACHS [facility]; Protocol Last Admin: 12/21/24 08:19 Dose: 4 unit Documented By: CTORRAdalberto Metoprolol Tartrate (Metoprolol Tartrate 25 Mg Tablet) 25 mg PO QID [facility]; Protocol Last Admin: 12/21/24 08:26 Dose: 25 mg Documented By: CTORRAdalberto Olanzapine (Olanzapine 10 Mg Vial) 5 mg IM DAILY PRN PRN Reason: Agitation Sodium Chloride (0.9 % Sodium Chloride Flush 3 Ml Syringe) 3 ml IVFLUSH QSHIFT [facility] Last Admin: 12/21/24 08:20 Dose: 3 ml Documented By: MARKUSORRAdalberto Warfarin Sodium (Warfarin Sodium 2.5 Mg Tablet) 2.5 mg PO TUTH@1800 [facility] Last Admin: 12/14/24 18:02 Dose: 2.5 mg Documented By: MAURIZIOAREmmett Warfarin Sodium (Warfarin Sodium 5 Mg Tablet) 5 mg PO SUMOWEFRSA@1800 [facility] Last Admin: 12/20/24 17:56 Dose: 5 mg Documented By: MINERVA Labs 12/21/24 06:33 12/21/24 06:33 Labs: Laboratory Results - last 24 hr 12/20/24 12/20/24 12/20/24 11:16 16:01 16:22 MCV MCH MCHC RDW Plt Count MPV Immature Gran % (Auto) Neut % (Auto) Lymph % (Auto) [place] % (Auto) Eos % (Auto) Baso % (Auto) Lymph # (Auto) [place] # (Auto) Eos # (Auto) Baso # (Auto) Abs Immat Gran (auto) Absolute Neuts (auto) Absolute Nucleated RBC Nucleated RBC % (auto) PT INR O2 Saturation ABG pH at Pt Temp ABG pCO2 at Pt Temp ABG pO2 at Pt Temp ABG HCO3 ABG Base Excess (Actual) VBG pH VBG pCO2 VBG pO2 VBG HCO3 VBG O2 Saturation VBG Base Excess Anion Gap 13 Estim Creat Clear Calc 109.3 Estimated GFR > 60 POC Glucose 239 H 221 H Random Glucose 219 H Calcium 8.9 Phosphorus 3.1 Magnesium 1.9 B-Natriuretic Peptide 12/20/24 12/20/24 12/21/24 16:27 20:40 06:33 MCV 77.9 L MCH 23.7 L MCHC 30.4 L RDW 20.0 H Plt Count 239 MPV 9.3 L Immature Gran % (Auto) 0.5 H Neut % (Auto) 82.8 H Lymph % (Auto) 4.5 L [place] % (Auto) 11.7 H Eos % (Auto) 0.2 Baso % (Auto) 0.3 Lymph # (Auto) 0.5 L [place] # (Auto) 1.3 H Eos # (Auto) 0.0 Baso # (Auto) 0.0 Abs Immat Gran (auto) 0.05 H Absolute Neuts (auto) 9.0 H Absolute Nucleated RBC 0.000 Nucleated RBC % (auto) 0.0 PT 29.2 H D INR 2.5 H O2 Saturation ABG pH at Pt Temp ABG pCO2 at Pt Temp ABG pO2 at Pt Temp ABG HCO3 ABG Base Excess (Actual) VBG pH 7.36 VBG pCO2 41 VBG pO2 67 VBG HCO3 23 VBG O2 Saturation 92.0 VBG Base Excess -1.6 Anion Gap 12 Estim Creat Clear Calc 99.9 Estimated GFR > 60 POC Glucose 260 H Random Glucose 209 H Calcium 9.3 Phosphorus 3.4 Magnesium 1.9 B-Natriuretic Peptide 484 H 12/21/24 12/21/24 07:20 09:24 MCV MCH MCHC RDW Plt Count MPV Immature Gran % (Auto) Neut % (Auto) Lymph % (Auto) [place] % (Auto) Eos % (Auto) Baso % (Auto) Lymph # (Auto) [place] # (Auto) Eos # (Auto) Baso # (Auto) Abs Immat Gran (auto) Absolute Neuts (auto) Absolute Nucleated RBC Nucleated RBC % (auto) PT INR O2 Saturation 87.0 ABG pH at Pt Temp 7.22 L ABG pCO2 at Pt Temp 63 H* ABG pO2 at Pt Temp 70 L ABG HCO3 26 ABG Base Excess (Actual) -3.3 VBG pH VBG pCO2 VBG pO2 VBG HCO3 VBG O2 Saturation VBG Base Excess Anion Gap Estim Creat Clear Calc Estimated GFR POC Glucose 205 H Random Glucose Calcium Phosphorus Magnesium B-Natriuretic Peptide Microbiology Microbiology Results: Microbiology 12/15/24 14:03 Blood Culture - Final Blood - Venous No growth after 5 days. 12/15/24 14:05 Blood Culture - Final Blood - Venous No growth after 5 days. Assessment and Plan (1) Acute CHF: Status: Acute Plan 74M PMH chronic diastolic CHF, diabetes, coronary disease status post stent, DVT/PE on warfarin, paroxysmal AFib, obesity, chronic lymphedema, presented 12/14/24 with hypoxia course complicated by hypercapnea requiring bipap and icu transfer 12/15/24. was treated with bipa, iv diuretics, precedex(for delerium), downgraded 12/19/24, has been noncompliant with bipap now with worsening hypoxia and hypercapnea am 12/21/24 acute metabolic encephalopathy and icu delerium due to Acute hypoxic and hypercapneic respiratory failure due to acute on chronic diastolic CHF, obsturction due to kypohsis, and aspiration pna patient now euvolemic, holding further diuretics, conitnue nippv at night - refusing leading to recurrent hypercapnea and worsening hypoxia placed back on bipap aspiratoin pna changed to zosyn, MOTHER SUPERIOR following ndd2 with thins Diabetes Insulin sliding scale Coronary artery disease Antiplatelet, statin DVT/PE Continue warfarin, monitor INR Paroxysmal AFib with rvr Continue beta-ela, warfarin Chronic lymphedema Continue compression Obesity Has had recent successful weight loss Full code reason for continued hospitalization:hypoxia Quality Stroke Does the patient have a stroke diagnosis?: No VTE Prior VTE?: Yes VTE Risk Level:: Medical - moderate - high VTE Device Contraindication: N/A - Device Ordered VTE Drug Contraindication: N/A - Med Ordered
[2024-12-21 11:16] LABS: Glucose, Whole Blood 181 mg/dL (60-115)
[2024-12-21 11:46] LABS: ABG Refer to POC result
[2024-12-21 12:55] LABS: ABG HCO3 23 mmol/L (22-26); ABG O2 % Saturation 97.0 %
[2024-12-21 14:14] LABS: ABG Refer to POC result
[2024-12-21 16:29] LABS: Glucose, Whole Blood 175 mg/dL (60-115)
--- NOTE | 2024-12-21 18:46 | MHC.SLORD ---
Speech Language Pathology Order Status: Attempted to see patient at lunch, patient on bipap, increase respiratory needs, not appropriate for meal at time of visit. GENERAL EDUCATION PROFESSOR will continue to follow.
[2024-12-21 18:52] LABS: Venous Blood Gas Refer to POC result
[2024-12-21 18:54] LABS: VBG HCO3 25 mmol/L (22-26); VBG O2 % Saturation 48.0 %
[2024-12-21 19:12] LABS: Anion Gap 12 (12-20); Blood Urea Nitrogen 56 mg/dL (9-16); Calcium 9.1 mg/dL (8.4-10.2); Carbon Dioxide 27 mmol/L (22-29); Chloride 109 mmol/L (96-108); Creatinine Clr Calc Pharmacy 74.9; Estimated Glomerular Filt Rate 57; Magnesium 1.9 mg/dL (1.6-2.6); Potassium 4.4 mmol/L (3.3-5.1); Sodium 144 mmol/L (135-145)
[2024-12-21] MEDS: iohexoL 350 MG/ML 100 ML INFUS..BTL IV (19:36)
[2024-12-21 20:55] LABS: Glucose, Whole Blood 237 mg/dL (60-115)
[2024-12-21 22:56] LABS: ABG HCO3 27 mmol/L (22-26); ABG O2 % Saturation 68.0 %
[2024-12-22] VITALS (14 sets, daily range): BP systolic 100–128; BP diastolic 56–76; PULSE 88–119; RESP 17–30; TEMP 36.6–37.7; O2SAT 92–98
[2024-12-22 07:12] LABS: Glucose, Whole Blood 198 mg/dL (60-115)
[2024-12-22 07:59] LABS: MANUAL DIFF FLAG NO
[2024-12-22 08:00] LABS: Venous Blood Gas Refer to POC result
[2024-12-22 08:01] LABS: VBG HCO3 24 mmol/L (22-26); VBG O2 % Saturation 100.0 %
[2024-12-22 08:05] LABS: Hematocrit 44.9 % (42.0-52.0); Hemoglobin 13.7 g/dl (14.0-18.0); Imm Gran Abs Auto 0.02 X10*3/uL (0.00-0.03); Imm Gran Pct Auto 0.2 % (0.0-0.4); Lymphocytes Absolute Auto 0.5 X10*3/uL (1.2-4.9); Mean Corpuscular HGB Conc 30.5 g/dl (31.0-36.0); Mean Corpuscular Hemoglobin 23.7 pg (27.0-33.0); Mean Corpuscular Volume 77.7 fL (80.0-98.0); NRBC Abs Auto 0.000 X10*3/uL (0.0-0.012); NRBC Pct Auto 0.0 /100WBC (0.0-0.2); Platelet Count 210 X10*3/uL (160-400); Red Blood Count 5.78 X10*6/uL (4.60-5.80); White Blood Count 9.1 X10*3/uL (4.8-10.8)
[2024-12-22 08:16] LABS: Anion Gap 11 (12-20); Blood Urea Nitrogen 62 mg/dL (9-16); Calcium 8.8 mg/dL (8.4-10.2); Carbon Dioxide 24 mmol/L (22-29); Chloride 114 mmol/L (96-108); Creatinine Clr Calc Pharmacy 85.2; Estimated Glomerular Filt Rate > 60; INTERNATIONAL NORM RATIO 4.2 (0.9-1.1); Magnesium 2.1 mg/dL (1.6-2.6); Potassium 4.2 mmol/L (3.3-5.1); Prothrombin Time 47.9 SEC (10.9-12.4); Sodium 145 mmol/L (135-145)
[2024-12-22] MEDS: Aspirin Enteric Coated 81 MG TABLET.DR PO (08:33)
[2024-12-22] MEDS: 0.9 % Sodium Chloride Flush 3 ML SYRINGE IVFLUSH ×2 (08:33→17:19)
--- NOTE | 2024-12-22 10:48 | MHC.CLN ---
F/U PO INTAKE REMAINS VARIABLE, 0-100% DIET RX:DIABETIC 2000 KCAL, GRD/M/S RECEIVING ENSURE MAX BID TO PROMOTE WOUND HEALING SUPP PROVIDES 300KCALS, 60G PROTEIN WITH 100% ACCEPTANCE MONITOR PO INTAKE AND ENCOURAGE SUPPLEMENTS
[2024-12-22 11:07] LABS: Glucose, Whole Blood 284 mg/dL (60-115)
--- NOTE | 2024-12-22 11:39 | HO.WOUND ---
Wound Consult: Follow up 74 yr old male admitted to [facility] on 12/14/24- See progress notes and H&P for detailed history. Wound consult placed for buttock and bilateral legs. Patient agreeable to assessment and photo documentation. 12/15/24 On admission 12/22/24 assessment Patient was noted to have prior stage 3 Pressure Injury on admission with purple intact hyperpigmented tissue to the periwound. Todays assessment reveals significant skin changes with unclear etiology at this time. Chart review completed: Patient hospital course has been complicated Acute on Chronic Respiratory Failure, ICU course required pressor support for 4days, Patient refusals of care including turns and care, Chronic Blood thinner use INR of up to 4.2. The Etiology remains unclear at this time - there is a pressure component as he had a stage 3 PI POA, however given the above clinical picture and the irregular pattern of pigmentation changes and the lack of pigmentation over the coccyx. Etiology will remain unknown at this time and inpatient wound care will continue to see and assess patient. Currently on DUNG mattress, Wedges in use at bedside along with pillows. Agility bed - Pulsate extra long with bolsters ordered today to accommodate his height and turns in bed along with skin health benefits. Unknown Etiology: DTI in evolution vs Ischemia Previously right buttock stage 3 pressure injury Present on Admission Wound Bed: Dark purple nonblanchable tissue with epidermal lifting Drainage / Odor: scant sanguineous, no odor Edges: ?irregular [place] wound: ?Dark red blanchable tissue - No Induration, Fluctuance or Warmth noted - chronic moisture/friction/shearing. Pain: tenderness at times reported by patient Goals of Treatment: ? offloading and Triad bilateral legs dressing removed - noted for small resurfacing venous wound to each lower leg - surrounding tissue with thicken scaling lifting tissue, evidence of prior swelling, hemosiderin staining noted. Treated with xeroform and gazue wrap. Provider to consider Ammonium Lactate cream. Bilateral ears noted with intact and blanchable redness, reid foams in use. Recommendations: 1. Turn and Reposition every 2 hours and as needed for patient comfort. Use pillows or wedges to support off loading positions. 2. Off Load all bony prominences with use of pillows and heel boots if needed. Apply Preventative foams where needed. 3. Monitor for incontinence and moisture control, use barrier creams when needed for prevention and treatment. 4. Provide adequate and supplemental nutrition. 5. Order or Continue low air loss mattress. 6. When applicable maintain blood glucose levels per Providers order. Buttocks: Off Load Pressure with Q2 hr turns and use of pillows - Cleanse with PH balance spray or wipes, pat dry. ?Apply thin layer of Triad to wound bed. Do not remove all of paste between applications as this may cause further skin damage.? Cover with foam dressing to aid in off loading and protection from friction. Change every 3 days and PRN. Bilateral Lower Legs - Cleanse with NS moist gauze, pat dry. Apply Ammonium lactate cream per provider orders. Cover open wound bed with xeroform, ABd pad and gauze wrap. Change Daily while inpatient. Contonue follow up outpt wound care at time of d/c. Re-consult wound care Nurse for wound deterioration or wound changes.
--- NOTE | 2024-12-22 14:21 | MHC.CM.PN ---
Per rounds, pt. is not ready to DC, needs further treatment for hypoxia. DCP to include either STR or home services.
--- NOTE | 2024-12-22 14:28 | MHC.SL.SWA ---
Speech Pathologist Impression: Dysphagia Risk of Aspiration Due to: Respiratory status Hx of PNA Dysphasia Diet Status: Liquid Consistency and Strategies for Safe Swallow: Liquid Intake Recommendation: Thin Liquid Intake Strategies: Small Sips Solid Food Consistency: Dietary Recommendations: Grnd/Mech Altered (NDD2) Additional Modifications to Solid Foods: Oral Medication Intake: Crushed with Puree Please contact the pharmacy regarding appropriate crushable or liquid drug formulations that are available whenever modified delivery is recommended. Compensatory Strategies and Precautions to be Taken for Safe Swallow: Sitting Upright (90 deg) Liquids from Straw Small Bites and Sips Rate of Ingestion Change Supervision While Eating and Drinking for Safe Swallow: Total Assistance (1:1) Foods to Avoid: tough, difficult to chew solids. Swallowing Recommended Treatments: Compens. Strategy Educat. Recommendation for Speech: Inpatient Speech Therapy Comment: Pt is kyphotic but able to lift head slightly. Pt has persisting cough, with intermittent coughing up phlegm. Pt on continuous O2 via NC and has been on rescue BiPap. Recc NDD2 consistency diet but only takes a few bites. Pt tolerating thin liquids, question need for MBSS to visualize physiological function of swallow mechanism. Frequency/Duration: Date Range for Service Req: Timeline to reassess: Catering Chef Clinican/Clinical Fellow: No Supervisory Statement: I have reviewed and agree with the student/clinical fellow's documentation: N/A Speech Language Pathologist: Rachel Sanders M.S., CCC-HEATING AND COOLING SYSTEMS ENGINEER
[2024-12-22 15:59] LABS: Glucose, Whole Blood 239 mg/dL (60-115)
[2024-12-22 18:41] LABS: Anion Gap 9 (12-20); Blood Urea Nitrogen 58 mg/dL (9-16); Calcium 9.0 mg/dL (8.4-10.2); Carbon Dioxide 29 mmol/L (22-29); Chloride 111 mmol/L (96-108); Creatinine Clr Calc Pharmacy 91.1; Estimated Glomerular Filt Rate > 60; Magnesium 2.2 mg/dL (1.6-2.6); Potassium 4.1 mmol/L (3.3-5.1); Sodium 145 mmol/L (135-145)
--- NOTE | 2024-12-22 18:51 | P.PNIM_ITS ---
Subjective Subjective Date of Service: 12/23/24 Interval History: chf ? remote hx of rubens Review of Systems sob somewhat improving generlaised weak Physical Exam 2 Exam: Exam: Appearance: Alert.? Oriented X3.? cvs: rrr, [id number] , no murmur res: clear to auscultation ,no rhonchii or wheezing abd: no rebound or guarding ,nt, bs present. ext pulses present , no cyanosis . neuro: axo3 , nonfocal. Vital Signs: Vital Signs: Last Vital Signs Temp 98.9 F 12/22/24 15:35 Pulse 96 12/22/24 15:35 Resp 18 12/22/24 15:35 BP 118/65 12/22/24 15:35 Pulse Ox 94 12/22/24 15:35 O2 Del Method Nasal Cannula 12/22/24 15:35 O2 Flow Rate 4 12/22/24 15:35 FiO2 40 12/21/24 23:24 Oxygen Flow Rate 4 12/14/24 10:24 BMI result Body Mass Index 31.1 Objective Data Active Medications Acetaminophen (Acetaminophen 325 Mg Tablet) 650 mg PO Q6H PRN PRN Reason: Pain, Mild 1-3,fever,headache Last Admin: 12/20/24 15:34 Dose: 650 mg Documented By: AGUSTO Aspirin (Aspirin Enteric Coated 81 Mg Tablet.) 81 mg PO DAILY [facility] Last Admin: 12/22/24 08:33 Dose: 81 mg Documented By: HELIO Atorvastatin Calcium (Atorvastatin Calcium 40 Mg Tablet) 40 mg PO BEDTIME [facility] Last Admin: 12/21/24 23:37 Dose: Not Given Documented By: VERONIKA Non-Admin Reason: NPO on bipap Dextrose (Dextrose 50 % 25 Gm/50 Ml Syringe) 25 gm IVPUSH Q15M PRN; Protocol PRN Reason: per Hypoglycemia Standing Ord. Diltiazem HCl (Diltiazem Hcl 30 Mg Tablet) 30 mg PO QID [facility]; Protocol Last Admin: 12/22/24 17:18 Dose: 30 mg Documented By: HELIO Glucose (Glucose Gel 15 Gm Gel..Gram.) 15 gm PO Q15M PRN; Protocol PRN Reason: per Hypoglycemia Standing Ord. Diltiazem HCl 125 mg/ Sodium (Chloride) 125 mls @ 0 mls/hr IVCONT .Q0M [facility]; Protocol Last Titration: 12/22/24 12:20 Dose: 5 mg/hr, 5 mls/hr Documented By: HELIO Piperacillin Sod/Tazobactam (Sod 4.5 gm/ Sodium Chloride) 100 mls @ 200 mls/hr IV Q6H [facility] Last Admin: 12/22/24 17:20 Dose: 200 mls/hr Documented By: HELIO Insulin Human Lispro (Insulin Lispro 100 Unit/Ml 3 Ml Vial) 0 unit SUBCUT QIDACHS [facility]; Protocol Last Admin: 12/22/24 17:19 Dose: 4 unit Documented By: HELIO Metoprolol Tartrate (Metoprolol Tartrate 25 Mg Tablet) 25 mg PO QID [facility]; Protocol Last Admin: 12/22/24 17:18 Dose: 25 mg Documented By: HELIO Olanzapine (Olanzapine 10 Mg Vial) 5 mg IM DAILY PRN PRN Reason: Agitation Sodium Chloride (0.9 % Sodium Chloride Flush 3 Ml Syringe) 3 ml IVFLUSH QSHIFT [facility] Last Admin: 12/22/24 17:19 Dose: 3 ml Documented By: HELIO Warfarin Sodium (Warfarin Sodium 2.5 Mg Tablet) 2.5 mg PO TUTH@1800 [facility] Last Admin: 12/21/24 17:44 Dose: 2.5 mg Documented By: BUNNY Warfarin Sodium (Warfarin Sodium 5 Mg Tablet) 5 mg PO SUMOWEFRSA@1800 [facility] On Hold: 12/22/24 10:52 Resume: 12/23/24 06:00 Comment: Hold dose on 12/22 due to high INR Last Admin: 12/20/24 17:56 Dose: 5 mg Documented By: MINERVA Labs 12/22/24 07:44 12/22/24 17:59 Labs: Laboratory Results - last 24 hr 12/21/24 12/21/24 12/21/24 18:33 18:43 18:50 MCV MCH MCHC RDW Plt Count MPV Immature Gran % (Auto) Neut % (Auto) Lymph % (Auto) [place] % (Auto) Eos % (Auto) Baso % (Auto) Lymph # (Auto) [place] # (Auto) Eos # (Auto) Baso # (Auto) Abs Immat Gran (auto) Absolute Neuts (auto) Absolute Nucleated RBC Nucleated RBC % (auto) Hold Purple Top SEE NOTE PT INR O2 Saturation ABG pH at Pt Temp ABG pCO2 at Pt Temp ABG pO2 at Pt Temp ABG HCO3 ABG Base Excess (Actual) VBG pH 7.27 L VBG pCO2 54 VBG pO2 35 VBG HCO3 25 VBG O2 Saturation 48.0 VBG Base Excess -2.0 Anion Gap 12 Estim Creat Clear Calc 74.9 Estimated GFR 57 POC Glucose Random Glucose 270 H Calcium 9.1 Phosphorus 3.7 Magnesium 1.9 12/21/24 12/21/24 12/22/24 20:51 22:51 07:04 MCV MCH MCHC RDW Plt Count MPV Immature Gran % (Auto) Neut % (Auto) Lymph % (Auto) [place] % (Auto) Eos % (Auto) Baso % (Auto) Lymph # (Auto) [place] # (Auto) Eos # (Auto) Baso # (Auto) Abs Immat Gran (auto) Absolute Neuts (auto) Absolute Nucleated RBC Nucleated RBC % (auto) Hold Purple Top PT INR O2 Saturation 68.0 ABG pH at Pt Temp 7.30 L ABG pCO2 at Pt Temp 54 H ABG pO2 at Pt Temp 48 L* ABG HCO3 27 H ABG Base Excess (Actual) -0.2 VBG pH VBG pCO2 VBG pO2 VBG HCO3 VBG O2 Saturation VBG Base Excess Anion Gap Estim Creat Clear Calc Estimated GFR POC Glucose 237 H 198 H Random Glucose Calcium Phosphorus Magnesium 12/22/24 12/22/24 12/22/24 07:44 07:56 11:01 MCV 77.7 L MCH 23.7 L MCHC 30.5 L RDW 19.7 H Plt Count 210 MPV 9.5 Immature Gran % (Auto) 0.2 Neut % (Auto) 83.9 H Lymph % (Auto) 5.4 L [place] % (Auto) 10.0 Eos % (Auto) 0.4 Baso % (Auto) 0.1 Lymph # (Auto) 0.5 L [place] # (Auto) 0.9 Eos # (Auto) 0.0 Baso # (Auto) 0.0 Abs Immat Gran (auto) 0.02 Absolute Neuts (auto) 7.6 Absolute Nucleated RBC 0.000 Nucleated RBC % (auto) 0.0 Hold Purple Top PT 47.9 H D INR 4.2 H O2 Saturation ABG pH at Pt Temp ABG pCO2 at Pt Temp ABG pO2 at Pt Temp ABG HCO3 ABG Base Excess (Actual) VBG pH 7.34 VBG pCO2 44 VBG pO2 192 VBG HCO3 24 VBG O2 Saturation 100.0 VBG Base Excess -1.2 Anion Gap 11 L Estim Creat Clear Calc 85.2 Estimated GFR > 60 POC Glucose 284 H Random Glucose 219 H Calcium 8.8 Phosphorus 3.3 Magnesium 2.1 12/22/24 12/22/24 15:56 17:59 MCV MCH MCHC RDW Plt Count MPV Immature Gran % (Auto) Neut % (Auto) Lymph % (Auto) [place] % (Auto) Eos % (Auto) Baso % (Auto) Lymph # (Auto) [place] # (Auto) Eos # (Auto) Baso # (Auto) Abs Immat Gran (auto) Absolute Neuts (auto) Absolute Nucleated RBC Nucleated RBC % (auto) Hold Purple Top PT INR O2 Saturation ABG pH at Pt Temp ABG pCO2 at Pt Temp ABG pO2 at Pt Temp ABG HCO3 ABG Base Excess (Actual) VBG pH VBG pCO2 VBG pO2 VBG HCO3 VBG O2 Saturation VBG Base Excess Anion Gap 9 L Estim Creat Clear Calc 91.1 Estimated GFR > 60 POC Glucose 239 H Random Glucose 246 H Calcium 9.0 Phosphorus 2.8 Magnesium 2.2 Assessment and Plan (1) Acute CHF: Status: Acute Plan 74M PMH chronic diastolic CHF, diabetes, coronary disease status post stent, DVT/PE on warfarin, paroxysmal AFib, obesity, chronic lymphedema, presented 12/14/24 with hypoxia course complicated by hypercapnea requiring bipap and icu transfer 12/15/24. was treated with bipa, iv diuretics, precedex(for delerium), downgraded 12/19/24, has been noncompliant with bipap now with worsening hypoxia and hypercapnea am 12/21/24 acute metabolic encephalopathy and icu delerium due to Acute hypoxic and hypercapneic respiratory failure due to acute on chronic diastolic CHF, obsturction due to kypohsis, and aspiration pna patient now euvolemic, holding further diuretics, conitnue nippv at night - refusing leading to recurrent hypercapnea and worsening hypoxia placed back on bipap spoke to patient cardiology's office -patient was also has ?rubens -added sleep study, slowly reintriduce lasix ( asper his cardiology office 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 , might have changed to 20 afterwrads ) aspiratoin pna changed to zosydileep, CROP DUSTER following ndd2 with thins Diabetes Insulin sliding scale Coronary artery disease Antiplatelet, statin DVT/PE Continue warfarin, monitor INR Paroxysmal AFib with rvr Continue beta-ela( per his cardiology office patient was on metoprolol 150mg po bid ,cardizem was stopped outpatient ? due to leg edema), will taper iv cardizem ,consider low to cardizem if needed or adjust po metoptolol, warfarin Chronic lymphedema Continue compression Obesity Has had recent successful weight loss Full code reason for continued hospitalization:hypoxia. d/w his in detail -she is not very cooperative and keep complaining for all providers that she does not know the plan,i tried my best to go over the plan in detail , also she needed me to talk to his concreter office which we reached out ,cardiology office also given fx no to send copy of his recent visit. Quality Stroke Does the patient have a stroke diagnosis?: No VTE Prior VTE?: Yes VTE Risk Level:: Medical - moderate - high VTE Device Contraindication: N/A - Device Ordered VTE Drug Contraindication: N/A - Med Ordered
[2024-12-22 19:51] LABS: Glucose, Whole Blood 204 mg/dL (60-115)
--- NOTE | 2024-12-22 19:51 | PC.RT ---
Pt & Family refusal of sleep study and ABG. Plan to place pt on NIV at 2030. RN aware
[2024-12-22 22:19] LABS: Venous Blood Gas Refer to POC result
[2024-12-22 22:21] LABS: VBG HCO3 25 mmol/L (22-26); VBG O2 % Saturation 100.0 %
[2024-12-23] VITALS (12 sets, daily range): BP systolic 96–122; BP diastolic 53–70; PULSE 68–119; RESP 16–24; TEMP 36.2–37.3; O2SAT 88–96
[2024-12-23 07:11] LABS: INTERNATIONAL NORM RATIO 3.8 (0.9-1.1); Prothrombin Time 43.5 SEC (10.9-12.4)
[2024-12-23 07:20] LABS: Glucose, Whole Blood 210 mg/dL (60-115)
[2024-12-23] MEDS: Aspirin Enteric Coated 81 MG TABLET.DR PO (08:13)
[2024-12-23] MEDS: 0.9 % Sodium Chloride Flush 3 ML SYRINGE IVFLUSH ×3 (08:13→20:30)
[2024-12-23 10:47] LABS: Hematocrit 43.4 % (42.0-52.0); Hemoglobin 12.9 g/dl (14.0-18.0); Mean Corpuscular HGB Conc 29.7 g/dl (31.0-36.0); Mean Corpuscular Hemoglobin 23.4 pg (27.0-33.0); Mean Corpuscular Volume 78.6 fL (80.0-98.0); NRBC Abs Auto 0.000 X10*3/uL (0.0-0.012); NRBC Pct Auto 0.0 /100WBC (0.0-0.2); Platelet Count 235 X10*3/uL (160-400); Red Blood Count 5.52 X10*6/uL (4.60-5.80); White Blood Count 8.8 X10*3/uL (4.8-10.8)
[2024-12-23 11:05] LABS: Alanine Aminotransferase 38 U/L (0-40); Albumin Level 2.8 g/dL (3.5-5.0); Alkaline Phosphatase 75 U/L (39-117); Anion Gap 10 (12-20); Aspartate Amino Transferase 68 U/L (5-37); Blood Urea Nitrogen 53 mg/dL (9-16); Calcium 9.0 mg/dL (8.4-10.2); Carbon Dioxide 27 mmol/L (22-29); Chloride 111 mmol/L (96-108); Creatinine Clr Calc Pharmacy 96.8; Estimated Glomerular Filt Rate > 60; Potassium 4.1 mmol/L (3.3-5.1); Sodium 144 mmol/L (135-145); Total Protein 6.6 g/dL (6.5-8.0)
[2024-12-23 11:40] LABS: Glucose, Whole Blood 222 mg/dL (60-115)
[2024-12-23] MEDS: Ammonium Lactate 12 % Cream 140 GM TUBE 1 APPL TOPICAL (14:51)
--- NOTE | 2024-12-23 15:25 | HO.WOUND ---
Addendum entered by Roxy Alvarez RN 12/23/24 15:32: Agility Pulsate bed in use - set to 5min intervals 5bars - patient reports increase in comfort to previous bed. Original Note: Wound Consult: Follow up 74 yr old male admitted to [facility] on 12/14/24- See progress notes and H&P for detailed history. Wound consult follow up for buttock and bilateral legs. Patient agreeable to assessment and photo documentation. 12/15/24 On admission 12/22/24 assessment 12/23/24 Todays assessment continues to evolve - there are areas of improvement to the periwound and color pigmentation. Etiology remains unclear at this time will continue to assess and treat. Topical recommendations remains the same at this time. Triad and foam cover dressing in addition to off loading pressure with Q 2 hr turns. Patient educated on importance of allowing care and turning and respoition and participating in movement. Refusals were reported and discussed. Patient was noted to be incontinent of stool while at bedside - incontinence care provided. Of note patient experienced a large clear mucus discharge from rectum. Stool was not note noted with in the mucus. Direct care team notified. Details from prior assessment: Patient was noted to have prior stage 3 Pressure Injury on admission with purple intact hyperpigmented tissue to the periwound. Todays assessment reveals significant skin changes with unclear etiology at this time. Chart review completed: Patient hospital course has been complicated Acute on Chronic Respiratory Failure, ICU course required pressor support for 4days, Patient refusals of care including turns and care, Chronic Blood thinner use INR of up to 4.2. The Etiology remains unclear at this time - there is a pressure component as he had a stage 3 PI POA, however given the above clinical picture and the irregular pattern of pigmentation changes and the lack of pigmentation over the coccyx. Etiology will remain unknown at this time and inpatient wound care will continue to see and assess patient. Currently on DUNG mattress, Wedges in use at bedside along with pillows. Agility bed - Pulsate extra long with bolsters ordered today to accommodate his height and turns in bed along with skin health benefits. Unknown Etiology: DTI in evolution vs Ischemia Previously right buttock stage 3 pressure injury Present on Admission Wound Bed: Dark purple nonblanchable tissue with epidermal lifting Drainage / Odor: scant sanguineous, no odor Edges: ?irregular Tiera wound: ?Dark red blanchable tissue - No Induration, Fluctuance or Warmth noted - chronic moisture/friction/shearing. Pain: tenderness at times reported by patient Goals of Treatment: ? offloading and Triad bilateral legs dressing removed - noted for small resurfacing venous wound to each lower leg - surrounding tissue with thicken scaling lifting tissue, evidence of prior swelling, hemosiderin staining noted. Treated with xeroform and gazue wrap. Provider to consider Ammonium Lactate cream. Bilateral ears noted with intact and blanchable redness, reid foams in use. Recommendations: 1. Turn and Reposition every 2 hours and as needed for patient comfort. Use pillows or wedges to support off loading positions. 2. Off Load all bony prominences with use of pillows and heel boots if needed. Apply Preventative foams where needed. 3. Monitor for incontinence and moisture control, use barrier creams when needed for prevention and treatment. 4. Provide adequate and supplemental nutrition. 5. Order or Continue low air loss mattress. 6. When applicable maintain blood glucose levels per Providers order. Buttocks: Off Load Pressure with Q2 hr turns and use of pillows - Cleanse with PH balance spray or wipes, pat dry. ?Apply thin layer of Triad to wound bed. Do not remove all of paste between applications as this may cause further skin damage.? Cover with foam dressing to aid in off loading and protection from friction. Change every 3 days and PRN. Bilateral Lower Legs - Cleanse with NS moist gauze, pat dry. Apply Ammonium lactate cream per provider orders. Cover open wound bed with xeroform, ABd pad and gauze wrap. Change Daily while inpatient. Contonue follow up outpt wound care at time of d/c. Re-consult wound care Nurse for wound deterioration or wound changes.
[2024-12-23 16:17] LABS: Glucose, Whole Blood 207 mg/dL (60-115)
[2024-12-23] MEDS: Lactated Ringers 500 ML 100 ML IV (16:58)
--- NOTE | 2024-12-23 18:32 | MHC.SL.SWA ---
Speech Pathologist Impression: Risk of Aspiration Due to: Dysphasia Diet Status: Recommend advance diet to CHOPPED/ADVANCED (NDD3) with THIN liquids, pills crushed in puree. Patient can have soft bread sandwiches from floor supply if meal is displeasing. Patient continues to require 1-1 feeding, careful monitor of O2 status and level of fatigue. Liquid Consistency and Strategies for Safe Swallow: Liquid Intake Recommendation: Thin Liquid Intake Strategies: Small Sips Solid Food Consistency: Dietary Recommendations: Chopped/Advanced (NDD3) Additional Modifications to Solid Foods: Patient requires 1-1 feeding. If patient is dissatisfied with meal, allow patient soft sandwich (e.g. chicken salad, tuna salad) from floor kitchen supply. Oral Medication Intake: Crushed with Puree Please contact the pharmacy regarding appropriate crushable or liquid drug formulations that are available whenever modified delivery is recommended. Compensatory Strategies and Precautions to be Taken for Safe Swallow: Sitting Upright (90 deg) Liquids from Straw Small Bites and Sips Rate of Ingestion Change Supervision While Eating and Drinking for Safe Swallow: Total Assistance (1:1) Foods to Avoid: tough, difficult to chew solids. Swallowing Recommended Treatments: Compens. Strategy Educat. Recommendation for Speech: Inpatient Speech Therapy Comment: Pt seen at lunch with present. Per RN/ meal had been sent back to dining service as patient was tired of receiving same meal daily (ground chicken with mashed potatoes and puree veg, patient is on ground diet per [employer] rec.). reported they had requested a sandwich. Current diet and rational was explained to and patient, however [employer] offered to retrieve sandwich from available supply on floor to re-asses patient for diet advancement. Patient was then assisted with taking bites of soft bread with chicken salad sandwich. Patient continues to need full assistance with meal, cannot raise hands to mouth. Patient was able to bite off piece of sandwich, produce a mildly slow and prolonged mastication on the texture. Patient provided with several bites of sandwich, but then visibly fatigued, trial was discontinues. Fatigue as an issue/risk for aspiration was reviewed with . Recommend advance diet to CHOPPED/ADVANCED (NDD3) with THIN liquids, pills crushed in puree. Patient can have soft bread sandwiches from floor supply if meal is displeasing. Patient continues to require 1-1 feeding, careful monitor of O2 status and level of fatigue. [employer] will continue to follow. RN advised. Frequency/Duration: Date Range for Service Req: Timeline to reassess: Veterinary Meat Inspector Clinican/Clinical Fellow: No Supervisory Statement: I have reviewed and agree with the student/clinical fellow's documentation: N/A Speech Language Pathologist: Betsy Snider M.A., CCC-COPYMAN
--- NOTE | 2024-12-23 18:59 | HO.PM.IMPN ---
Subjective Subjective Date of Service: 12/23/24 Interval History: Agitated and frustrated with hospital stay. Understandable. Extensive discussion regarding the patient's medical issues, plan, disposition. Patient reports that he feels well, thirsty overall. Denies chest pain, dizziness, diaphoresis, shortness of breath. Review of Systems Review of Systems: Yes all other systems are reviewed and are negative Physical Exam Exam: Exam: General: A&O x3, oriented to time place person and situation, comfortable, no pain. Significant thoracocervical lordosis. Cardiac: S1, S2 auscultated with no S3/4, no MRG. Well perfused. Respiratory: Decreased inspiratory and expiratory breath sounds bilaterally. Bibasilar crepitations auscultated at the bilateral lower lobes. No wheezing auscultated on examination. Congested sounding cough. No cyanosis, tachypnea. GI/ : No abdominal pain on palpation, no masses or distentions. MSK: Normal ambulation without pain at bony prominences or musculature. Lower extremities: Bilateral lower extremity swelling 2+ to the mid shins, with significant evidence of lipodermatosclerosis and dry skin. Neurological: Normal neurological examination on overview, without obvious CN II-XII abnormalities. Vital Signs: Vital Signs: Last Vital Signs Temp 99.1 F 12/23/24 16:00 Pulse 68 12/23/24 16:00 Resp 16 12/23/24 16:00 BP 100/55 L 12/23/24 16:00 Pulse Ox 90 L 12/23/24 16:00 O2 Del Method Room Air 12/23/24 16:00 O2 Flow Rate 1 12/23/24 12:00 FiO2 24 12/23/24 03:26 Oxygen Flow Rate 4 12/14/24 10:24 BMI result Body Mass Index 31.1 Objective Data Active Medications Acetaminophen (Acetaminophen 325 Mg Tablet) 650 mg PO Q6H PRN PRN Reason: Pain, Mild 1-3,fever,headache Last Admin: 12/23/24 09:41 Dose: 650 mg Documented By: HELIO Aspirin (Aspirin Enteric Coated 81 Mg Tablet.) 81 mg PO DAILY [facility] Last Admin: 12/23/24 08:13 Dose: 81 mg Documented By: HELIO Atorvastatin Calcium (Atorvastatin Calcium 40 Mg Tablet) 40 mg PO BEDTIME [facility] Last Admin: 12/23/24 00:04 Dose: 40 mg Documented By: VERONIKA Dextrose (Dextrose 50 % 25 Gm/50 Ml Syringe) 25 gm IVPUSH Q15M PRN; Protocol PRN Reason: per Hypoglycemia Standing Ord. Diltiazem HCl (Diltiazem Hcl 30 Mg Tablet) 30 mg PO QID [facility]; Protocol Last Admin: 12/23/24 16:55 Dose: 30 mg Documented By: HELIO Glucose (Glucose Gel 15 Gm Gel..Gram.) 15 gm PO Q15M PRN; Protocol PRN Reason: per Hypoglycemia Standing Ord. Diltiazem HCl 125 mg/ Sodium (Chloride) 125 mls @ 0 mls/hr IVCONT .Q0M [facility]; Protocol Last Titration: 12/23/24 15:41 Dose: 0 mg/hr, 0 mls/hr Documented By: JAMEE Piperacillin Sod/Tazobactam (Sod 4.5 gm/ Sodium Chloride) 100 mls @ 200 mls/hr IV Q6H [facility] Last Infusion: 12/23/24 18:18 Dose: Infused Documented By: HELIO Lactated Ringer's (Lr) 500 mls @ 100 mls/hr IV .Q5H [facility] Stop: 12/23/24 20:59 Last Admin: 12/23/24 16:58 Dose: 100 mls/hr Documented By: HELIO Insulin Human Lispro (Insulin Lispro 100 Unit/Ml 3 Ml Vial) 0 unit SUBCUT QIDACHS [facility]; Protocol Last Admin: 12/23/24 16:56 Dose: 4 unit Documented By: HELIO Lactic Acid (Ammonium Lactate 12 % Cream 140 Gm Tube) 1 appl TOPICAL DAILY PRN; Protocol PRN Reason: Dry Skin Last Admin: 12/23/24 14:51 Dose: 1 appl Documented By: HELIO Metoprolol Tartrate (Metoprolol Tartrate 25 Mg Tablet) 25 mg PO QID [facility]; Protocol Last Admin: 12/23/24 16:55 Dose: 25 mg Documented By: HELIO Olanzapine (Olanzapine 10 Mg Vial) 5 mg IM DAILY PRN PRN Reason: Agitation Sodium Chloride (0.9 % Sodium Chloride Flush 3 Ml Syringe) [facility] Last Admin: 12/23/24 16:51 Dose: 3 ml Documented By: HELIO Warfarin Sodium (Warfarin Sodium 2.5 Mg Tablet) 2.5 mg PO TUTH@1800 JOY On Hold: 12/23/24 09:05 Resume: 12/24/24 09:00 Last Admin: 12/21/24 17:44 Dose: 2.5 mg Documented By: BUNNY Warfarin Sodium (Warfarin Sodium 5 Mg Tablet) 5 mg PO SUMOWEFRSA@1800 JOY Last Admin: 12/20/24 17:56 Dose: 5 mg Documented By: MINERVA Labs 12/23/24 10:27 12/23/24 10:27 Labs: Laboratory Results - last 24 hr 12/22/24 12/22/24 12/23/24 19:47 22:17 06:21 MCV MCH MCHC RDW Plt Count MPV Absolute Nucleated RBC Nucleated RBC % (auto) Hold Purple Top SEE NOTE PT 43.5 H INR 3.8 H VBG pH 7.41 VBG pCO2 39 VBG pO2 150 VBG HCO3 25 VBG O2 Saturation 100.0 VBG Base Excess 0.9 Anion Gap Estim Creat Clear Calc Estimated GFR POC Glucose 204 H Random Glucose Calcium Total Bilirubin AST ALT Alkaline Phosphatase Total Protein Albumin 12/23/24 12/23/24 12/23/24 07:09 10:27 11:32 MCV 78.6 L MCH 23.4 L MCHC 29.7 L RDW 19.4 H Plt Count 235 MPV 9.3 L Absolute Nucleated RBC 0.000 Nucleated RBC % (auto) 0.0 Hold Purple Top PT INR VBG pH VBG pCO2 VBG pO2 VBG HCO3 VBG O2 Saturation VBG Base Excess Anion Gap 10 L Estim Creat Clear Calc 96.8 Estimated GFR > 60 POC Glucose 210 H 222 H Random Glucose 272 H Calcium 9.0 Total Bilirubin 1.1 H AST 68 H ALT 38 Alkaline Phosphatase 75 Total Protein 6.6 Albumin 2.8 L 12/23/24 15:38 MCV MCH MCHC RDW Plt Count MPV Absolute Nucleated RBC Nucleated RBC % (auto) Hold Purple Top PT INR VBG pH VBG pCO2 VBG pO2 VBG HCO3 VBG O2 Saturation VBG Base Excess Anion Gap Estim Creat Clear Calc Estimated GFR POC Glucose 207 H Random Glucose Calcium Total Bilirubin AST ALT Alkaline Phosphatase Total Protein Albumin Assessment and Plan (1) Acute CHF: Status: Acute (2) Acute on chronic urinary retention: Status: Acute (3) Obstructive uropathy: Status: Acute (4) Acute hypercapnic respiratory failure: Status: Acute (5) Respiratory failure with hypoxia and hypercapnia: Status: Acute (6) Edema: Status: Acute (7) Dehydration: Status: Acute Plan 74M PMH chronic diastolic CHF, diabetes, coronary disease status post stent, DVT/PE on warfarin, paroxysmal AFib, obesity, chronic lymphedema, presented 12/14/24 with hypoxia course complicated by hypercapnea requiring bipap and icu transfer 12/15/24. was treated with bipa, iv diuretics, precedex(for delerium), downgraded 12/19/24, has been noncompliant with bipap now with worsening hypoxia and hypercapnea am 12/21/24 acute metabolic encephalopathy and icu delerium due to Acute hypoxic and hypercapneic respiratory failure due to acute on chronic diastolic CHF, obsturction due to kypohsis, and aspiration pna patient now euvolemic, holding further diuretics, conitnue nippv at night - refusing leading to recurrent hypercapnea and worsening hypoxia placed back on bipap spoke to patient cardiology's office -patient was also has ?rubens -added sleep study, slowly reintriduce lasix ( asper his cardiology office DR Chavez 'S handkerchief sample clerk: His lasix dose was 40 mg for brief time? , might have changed to 20 afterwrads ) Dehydration 100 cc/hour LR x5 hours. Aspiratoin pna changed to zosyn, FOLEY ARTIST following ndd2 with thins Diabetes Insulin sliding scale Coronary artery disease Antiplatelet, statin DVT/PE Continue warfarin, monitor INR Paroxysmal AFib with rvr Continue beta-ela( per his cardiology office patient was on metoprolol 150mg po bid ,cardizem was stopped outpatient ? due to leg edema), will taper iv cardizem ,consider low to cardizem if needed or adjust po metoptolol, warfarin Chronic lymphedema Continue compression Obesity Has had recent successful weight loss [employer] - VTE: Warfarin INR 2-5 - CODE STATUS: Full code - DIET: Aspiration precautions Total time managing care of this patient today: 60 minutes. Quality Stroke Does the patient have a stroke diagnosis?: No VTE Prior VTE?: Yes VTE Risk Level:: Medical - moderate - high VTE Device Contraindication: N/A - Device Ordered VTE Drug Contraindication: N/A - Med Ordered
--- NOTE | 2024-12-23 20:30 | PC.RT ---
PT family refusing sleep study x2; plan to place pt on NIV tonight.
[2024-12-23 21:06] LABS: Glucose, Whole Blood 174 mg/dL (60-115)
[2024-12-24] VITALS (8 sets, daily range): BP systolic 104–141; BP diastolic 59–83; PULSE 85–125; RESP 16–22; TEMP 36.1–37.2; O2SAT 91–96
[2024-12-24] MEDS: OLANZapine 10 MG VIAL 5 MG IM (00:11)
[2024-12-24 06:30] LABS: MANUAL DIFF FLAG NO
[2024-12-24 06:42] LABS: Hematocrit 42.7 % (42.0-52.0); Hemoglobin 12.9 g/dl (14.0-18.0); Imm Gran Abs Auto 0.02 X10*3/uL (0.00-0.03); Imm Gran Pct Auto 0.3 % (0.0-0.4); Lymphocytes Absolute Auto 0.8 X10*3/uL (1.2-4.9); Mean Corpuscular HGB Conc 30.2 g/dl (31.0-36.0); Mean Corpuscular Hemoglobin 23.6 pg (27.0-33.0); Mean Corpuscular Volume 78.1 fL (80.0-98.0); NRBC Abs Auto 0.000 X10*3/uL (0.0-0.012); NRBC Pct Auto 0.0 /100WBC (0.0-0.2); Platelet Count 217 X10*3/uL (160-400); Red Blood Count 5.47 X10*6/uL (4.60-5.80); White Blood Count 7.1 X10*3/uL (4.8-10.8)
[2024-12-24 06:48] LABS: INTERNATIONAL NORM RATIO 3.2 (0.9-1.1); Prothrombin Time 36.6 SEC (10.9-12.4)
[2024-12-24 06:56] LABS: Anion Gap 10 (12-20); Blood Urea Nitrogen 32 mg/dL (9-16); Calcium 8.7 mg/dL (8.4-10.2); Carbon Dioxide 26 mmol/L (22-29); Chloride 111 mmol/L (96-108); Creatinine Clr Calc Pharmacy 130.9; Estimated Glomerular Filt Rate > 60; Potassium 3.8 mmol/L (3.3-5.1); Sodium 143 mmol/L (135-145)
[2024-12-24 07:09] LABS: Glucose, Whole Blood 154 mg/dL (60-115)
[2024-12-24] MEDS: 0.9 % Sodium Chloride Flush 3 ML SYRINGE IVFLUSH ×3 (08:23→23:29)
--- NOTE | 2024-12-24 09:03 | MHC.CM.PN ---
Late Entry for 12/23. This CM met with pt and his partner present at bedside to discuss the discharge plan. PT evaluated pt and recommended STR. Pt states he is agreeable with going, he doesn't have a preference for a facility, but states he didn't like the last place he went to in [place] since they didn't get him up enough. STR referrals placed in [facility], some facilities are interested/following. This CM offered to review the STR facilities with pt and his partner, however the partner declined stating, We've already been getting calls from some of them, and we've been through this before. Pts partner thinks he may be able to go home with home services. Per MD rounds, pt not medically cleared for discharge, likely needs another 2-3 days of treatment.
[2024-12-24 11:21] LABS: Glucose, Whole Blood 222 mg/dL (60-115)
--- NOTE | 2024-12-24 12:02 | MHC.CLN ---
F/U PO INTAKE REMAINS VARIABLE, 0-100% DIET RX:DIET ADVANCED TO 2000DM CHOPPED RECEIVING ENSURE MAX BID TO PROMOTE WOUND HEALING SUPP PROVIDES 300KCALS, 60G PROTEIN WITH 100% ACCEPTANCE CONTINUE TO MONITOR PO INTAKE AND ENCOURAGE SUPPLEMENTS
--- NOTE | 2024-12-24 12:33 | MHC.CM.PN ---
EMR reviewed, pt is not medically cleared for discharge due to management of aspiration pneumonia, and paroxysmal A-fib with RVR, on a cardizem gtt.
--- NOTE | 2024-12-24 14:18 | MHC.SL.SWA ---
Speech Pathologist Impression: Risk of Aspiration, Oral Phase Dysphagia Dysphasia Diet Status: Continue diet of CHOPPED/ADVANCED (NDD3) with THIN liquids, pills crushed in puree. Patient can have soft bread sandwiches from floor supply if meal is displeasing. Patient continues to require 1-1 feeding, careful monitor of O2 status and level of fatigue. Liquid Consistency and Strategies for Safe Swallow: Liquid Intake Recommendation: Thin Liquid Intake Strategies: Small Sips Solid Food Consistency: Dietary Recommendations: Chopped/Advanced (NDD3) Additional Modifications to Solid Foods: Patient requires 1-1 feeding. If patient is dissatisfied with meal, allow patient soft sandwich (e.g. chicken salad, tuna salad) from floor kitchen supply. Oral Medication Intake: Crushed with Puree Please contact the pharmacy regarding appropriate crushable or liquid drug formulations that are available whenever modified delivery is recommended. Compensatory Strategies and Precautions to be Taken for Safe Swallow: Sitting Upright (90 deg) Liquids from Straw Small Bites and Sips Rate of Ingestion Change Supervision While Eating and Drinking for Safe Swallow: Total Assistance (1:1) Foods to Avoid: tough, difficult to chew solids. Swallowing Recommended Treatments: Compens. Strategy Educat. Recommendation for Speech: Inpatient Speech Therapy Employment Office Clerk Clinican/Clinical Fellow: No Supervisory Statement: I have reviewed and agree with the student/clinical fellow's documentation: N/A Speech Language Pathologist: Alvina Carson M.A., [facility]WEBFED OFFSET PRESS OPERATOR
--- NOTE | 2024-12-24 14:47 | HO.WOUND ---
Wound Consult: Follow up 74 yr old male admitted to [facility] on 12/14/24- See progress notes and H&P for detailed history. Wound consult follow up for buttock and bilateral legs. Patient agreeable to assessment and photo documentation. Significant other at bedside - reports dissatisfaction with care and hospital stay in past days - reports things are improving. Provided examples of staff repositioning and we discussed advocating since patient reports the way he prefers to turn for instance with three pillows behind his head and no touching his lower back to assist with the roll. He was advised to self advocate for these items prior to the repositions and staff will be able to meet his need or at least attempt to. The patient was also educated that given his body habitus and lack of ability to reposition himself there is a large burden of weight placed on care givers and that at times that may be physically difficult to move at times thus leading to discomfort with out malicious intention. He and his significant other report agreement and understanding and are encouraged to continue to advocate for him and his needs being met. The patient expressed desire to skip some of the turns and not reposition every 2 hours he was advised given his skin condition he should be repositioning every 2 hours to allow for skin healing. He is in the Agility Pulsate bed - with setting to 5bars and 5 min intervals and reports increased comfort. 12/15/24 On admission 12/22/24 assessment 12/23/24 12/24/24 Todays assessment continues to evolve - there are areas of improvement to the periwound and color pigmentation. Etiology remains unclear at this time will continue to assess and treat. Topical recommendations remains the same at this time. Triad and foam cover dressing in addition to off loading pressure with Q 2 hr turns. Patient educated on importance of allowing care and turning and reposition and participating in movement. Refusals were reported and discussed. Patient was noted to be incontinent of stool while at bedside - incontinence care provided. The patient is noted to have purple purpura like skin changes noted to various areas such as the right leg and right hip area not related to pressure injury. Given the high INR that remains this is likely a component of the skin pigmentation changes noted in addition or MASD- IAD. Bilateral Leg dressing changed - no new topical recommendations needed - legs overall continue to improve. As mentioned above there is a purple purpura like pigmentation and skin tear noted to the left lateral lower leg that is new and not consistent with pressure. Treated with xeroform and gauze wrap. Ammonium lactate applied at bedside. Details from prior assessment: Patient was noted to have prior stage 3 Pressure Injury on admission with purple intact hyperpigmented tissue to the periwound. Todays assessment reveals significant skin changes with unclear etiology at this time. Chart review completed: Patient hospital course has been complicated Acute on Chronic Respiratory Failure, ICU course required pressor support for 4days, Patient refusals of care including turns and care, Chronic Blood thinner use INR of up to 4.2. The Etiology remains unclear at this time - there is a pressure component as he had a stage 3 PI POA, however given the above clinical picture and the irregular pattern of pigmentation changes and the lack of pigmentation over the coccyx. Etiology will remain unknown at this time and inpatient wound care will continue to see and assess patient. Currently on DUNG mattress, Wedges in use at bedside along with pillows. Agility bed - Pulsate extra long with bolsters ordered today to accommodate his height and turns in bed along with skin health benefits. Unknown Etiology: DTI in evolution vs Ischemia Previously right buttock stage 3 pressure injury Present on Admission Wound Bed: Dark purple nonblanchable tissue with epidermal lifting Drainage / Odor: scant sanguineous, no odor Edges: ?irregular Tiera wound: ?Dark red blanchable tissue - No Induration, Fluctuance or Warmth noted - chronic moisture/friction/shearing. Pain: tenderness at times reported by patient Goals of Treatment: ? offloading and Triad bilateral legs dressing removed - noted for small resurfacing venous wound to each lower leg - surrounding tissue with thicken scaling lifting tissue, evidence of prior swelling, hemosiderin staining noted. Treated with xeroform and gazue wrap. Provider to consider Ammonium Lactate cream. Bilateral ears noted with intact and blanchable redness, reid foams in use. Recommendations: 1. Turn and Reposition every 2 hours and as needed for patient comfort. Use pillows or wedges to support off loading positions. 2. Off Load all bony prominences with use of pillows and heel boots if needed. Apply Preventative foams where needed. 3. Monitor for incontinence and moisture control, use barrier creams when needed for prevention and treatment. 4. Provide adequate and supplemental nutrition. 5. Order or Continue low air loss mattress. 6. When applicable maintain blood glucose levels per Providers order. Buttocks: Off Load Pressure with Q2 hr turns and use of pillows - Cleanse with PH balance spray or wipes, pat dry. ?Apply thin layer of Triad to wound bed. Do not remove all of paste between applications as this may cause further skin damage.? Cover with foam dressing to aid in off loading and protection from friction. Change every 3 days and PRN. Bilateral Lower Legs - Cleanse with NS moist gauze, pat dry. Apply Ammonium lactate cream per provider orders. Cover open wound bed with xeroform, ABd pad and gauze wrap. Change Daily while inpatient. Contonue follow up outpt wound care at time of d/c. Re-consult wound care Nurse for wound deterioration or wound changes.
[2024-12-24 16:16] LABS: Glucose, Whole Blood 204 mg/dL (60-115)
--- NOTE | 2024-12-24 16:38 | HO.PM.IMPN ---
Subjective Subjective Date of Service: 12/24/24 Interval History: No acute issues or problems today. The patient reports suffering with 1 episode of expectorated blood with mucus which contained some blood. Asymptomatic otherwise. Reports his breathing has improved, as well as not experiencing palpitations at this time. Review of Systems General: Positive for decreased appetite. HEENT: Positive for rhinorrhea, mucus production. Respiratory: Positive for mucus production, negative for breathing difficulties. Gastrointestinal: Positive for difficulty swallowing. Review of Systems: Yes all other systems are reviewed and are negative Physical Exam Exam: Exam: General: A&O x3, oriented to time place person and situation, comfortable, no pain. Significant thoracocervical kyphosis. Cardiac: S1, S2 auscultated with no S3/4, no MRG. Well perfused. Respiratory: Decreased inspiratory and expiratory breath sounds bilaterally. Bibasilar crepitations auscultated at the bilateral lower lobes. No wheezing auscultated on examination. Congested sounding cough. No cyanosis, tachypnea. GI/ : No abdominal pain on palpation, no masses or distentions. MSK: Normal ambulation without pain at bony prominences or musculature. Lower extremities: Bilateral lower extremity swelling 2+ to the mid shins, with significant evidence of lipodermatosclerosis and dry skin. Neurological: Normal neurological examination on overview, without obvious CN II-XII abnormalities. Vital Signs: Vital Signs: Last Vital Signs Temp 99.0 F 12/24/24 15:32 Pulse 85 12/24/24 15:32 Resp 16 12/24/24 15:32 BP 135/83 12/24/24 15:32 Pulse Ox 94 12/24/24 15:32 O2 Del Method Nasal Cannula 12/24/24 15:32 O2 Flow Rate 4 12/24/24 15:32 FiO2 24 12/23/24 03:26 Oxygen Flow Rate 4 12/14/24 10:24 BMI result Body Mass Index 31.1 Objective Data Active Medications Acetaminophen (Acetaminophen 325 Mg Tablet) 650 mg PO Q6H PRN PRN Reason: Pain, Mild 1-3,fever,headache Last Admin: 12/23/24 09:41 Dose: 650 mg Documented By: HELIO Aspirin (Aspirin 81 Mg Tab.Chew) 81 mg PO DAILY JOY Last Admin: 12/24/24 08:27 Dose: 81 mg Documented By: SHANNAN Atorvastatin Calcium (Atorvastatin Calcium 40 Mg Tablet) 40 mg PO BEDTIME JOY Last Admin: 12/23/24 20:27 Dose: 40 mg Documented By: GENA Dextrose (Dextrose 50 % 25 Gm/50 Ml Syringe) 25 gm IVPUSH Q15M PRN; Protocol PRN Reason: per Hypoglycemia Standing Ord. Diltiazem HCl (Diltiazem Hcl 30 Mg Tablet) 30 mg PO QID [facility]; Protocol Last Admin: 12/24/24 13:16 Dose: 30 mg Documented By: JUDIE Glucose (Glucose Gel 15 Gm Gel..Gram.) 15 gm PO Q15M PRN; Protocol PRN Reason: per Hypoglycemia Standing Ord. Diltiazem HCl 125 mg/ Sodium (Chloride) 125 mls @ 0 mls/hr IVCONT .Q0M [facility]; Protocol Last Titration: 12/23/24 15:41 Dose: 0 mg/hr, 0 mls/hr Documented By: JAMEE Piperacillin Sod/Tazobactam (Sod 4.5 gm/ Sodium Chloride) 100 mls @ 200 mls/hr IV Q6H [facility] Last Infusion: 12/24/24 12:18 Dose: Infused Documented By: SHANNNA Lactated Ringer's (Lr) 500 mls @ 100 mls/hr IV .Q5H [facility] Stop: 12/24/24 20:59 Insulin Human Lispro (Insulin Lispro 100 Unit/Ml 3 Ml Vial) 0 unit SUBCUT QIDACHS [facility]; Protocol Last Admin: 12/24/24 11:41 Dose: 4 unit Documented By: SHANNAN Lactic Acid (Ammonium Lactate 12 % Cream 140 Gm Tube) 1 appl TOPICAL DAILY PRN; Protocol PRN Reason: Dry Skin Last Admin: 12/23/24 14:51 Dose: 1 appl Documented By: HELIO Metoprolol Tartrate (Metoprolol Tartrate 25 Mg Tablet) 25 mg PO QID [facility]; Protocol Last Admin: 12/24/24 13:16 Dose: 25 mg Documented By: JUDIE Olanzapine (Olanzapine 10 Mg Vial) 5 mg IM DAILY PRN PRN Reason: Agitation Last Admin: 12/24/24 00:11 Dose: 5 mg Documented By: GENA Sodium Chloride (0.9 % Sodium Chloride Flush 3 Ml Syringe) 3 ml IVFLUSH QSHIFT [facility] Last Admin: 12/24/24 08:23 Dose: 3 ml Documented By: SHANNAN Warfarin Sodium (Warfarin Sodium 2.5 Mg Tablet) 2.5 mg PO TUTH@1800 [facility] Last Admin: 12/21/24 17:44 Dose: 2.5 mg Documented By: MARKUSORRAdalberto Warfarin Sodium (Warfarin Sodium 5 Mg Tablet) 5 mg PO SUMOWEFRSA@1800 [facility] Last Admin: 12/20/24 17:56 Dose: 5 mg Documented By: MINERVA Labs 12/24/24 06:14 12/24/24 06:14 Labs: Laboratory Results - last 24 hr 12/23/24 12/24/24 12/24/24 20:58 06:14 07:04 MCV 78.1 L MCH 23.6 L MCHC 30.2 L RDW 19.3 H Plt Count 217 MPV 9.2 L Immature Gran % (Auto) 0.3 Neut % (Auto) 72.1 Lymph % (Auto) 11.3 L [place] % (Auto) 11.9 H Eos % (Auto) 3.8 Baso % (Auto) 0.6 Lymph # (Auto) 0.8 L [place] # (Auto) 0.8 Eos # (Auto) 0.3 Baso # (Auto) 0.0 Abs Immat Gran (auto) 0.02 Absolute Neuts (auto) 5.1 Absolute Nucleated RBC 0.000 Nucleated RBC % (auto) 0.0 PT 36.6 H INR 3.2 H Anion Gap 10 L Estim Creat Clear Calc 130.9 Estimated GFR > 60 POC Glucose 174 H 154 H Random Glucose 174 H Calcium 8.7 12/24/24 12/24/24 11:14 16:09 MCV MCH MCHC RDW Plt Count MPV Immature Gran % (Auto) Neut % (Auto) Lymph % (Auto) [place] % (Auto) Eos % (Auto) Baso % (Auto) Lymph # (Auto) [place] # (Auto) Eos # (Auto) Baso # (Auto) Abs Immat Gran (auto) Absolute Neuts (auto) Absolute Nucleated RBC Nucleated RBC % (auto) PT INR Anion Gap Estim Creat Clear Calc Estimated GFR POC Glucose 222 H 204 H Random Glucose Calcium Assessment and Plan (1) CHF (congestive heart failure): Status: Acute (2) Acute CHF: Status: Acute (3) Obstructive uropathy: Status: Acute (4) Acute hypercapnic respiratory failure: Status: Acute (5) Pneumonia: Status: Acute (6) Respiratory failure with hypoxia and hypercapnia: Status: Acute (7) Edema: Status: Acute Plan 74M PMH chronic diastolic CHF, diabetes, coronary disease status post stent, DVT/PE on warfarin, paroxysmal AFib, obesity, chronic lymphedema, presented 12/14/24 with dyspnea, admitted with acute multifactorial hypoxic respiratory failure in the setting of aspiration pneumonia, mixed chronic obstructive/restrictive pulmonary disease, CHF exacerbation & AFib RVR complicated by hypercapnic respiratory failure requiring BiPAP and MICU transfer 12/15/24, s/p treatment with BiPAP, IV diuretics, Precedex drip and downgraded 12/19. Acute metabolic encephalopathy MICU delerium Acute hypoxic and hypercapneic respiratory failure Acute on chronic diastolic CHF Obstructive and restrictive pulmonary disease Aspiration pneumonia Patient now euvolemic, holding further diuretics, conitnue nippv at night - refusing leading to recurrent hypercapnea and worsening hypoxia placed back on bipap spoke to patient cardiology's office -patient was also has ?rubens -added sleep study, Gradual reintroduction of furosemide Dehydration Repeat 100 cc/hour LR x5 hours Aspiration pneumonia Continue Zosyn BMET - ndd2 with thins Diabetes Insulin sliding scale Coronary artery disease Antiplatelet, statin DVT/PE Continue warfarin, monitor INR Paroxysmal AFib with rvr Patient's heart rate has improved. RVR has resolved. Initially 2/2 hypoxia and hypercapnia, along with CHF exacerbation, currently back to clinical baseline. Has improved significantly after now hydration. - continue beta-ela - Discontinue Cardizem drip - transitioned to p.o. diltiazem - continue warfarin INR 2-3 Chronic lymphedema Continue compression Obesity Has had recent successful weight loss [employer] - VTE: Warfarin INR 2-3 - CODE STATUS: Full code - DIET: Aspiration precautions Total time managing care of this patient today: 60 minutes. Quality Stroke Does the patient have a stroke diagnosis?: No VTE Prior VTE?: Yes VTE Risk Level:: Medical - moderate - high VTE Device Contraindication: N/A - Device Ordered VTE Drug Contraindication: N/A - Med Ordered
[2024-12-24] MEDS: Lactated Ringers 500 ML 100 ML IV (17:13)
--- NOTE | 2024-12-24 18:58 | P.CONCA_ITS ---
History of Present Illness History of Present Illness Date of Service: 12/24/24 Requesting physician: Frankie Tolentino Chief complaint: chf, Afib Narrative: Pleasant 74 year gentleman with multiple comorbidities and recent ICU admission for aspiration pneumonia and respiratory failure. During the admission he had congestive heart failure and AFib with RVR. Previous EKGs he has been atrial fibrillation persistently for more than a year at this point. He practically has chronic atrial fibrillation. He was diuresed and overall having clinical improvement. He is currently on supplemental oxygen. He has lymphedema with bilateral leg wrapping. He is saying his breathing is improving overall. Appears to be quite frail and deconditioned. [facility] Past Medical History Medical History (Updated 12/24/24 @ 19:01 by Stephon Hackett MD) Atrial fibrillation Atrial fibrillation with RVR BPH (benign prostatic hyperplasia) Chronic venous stasis dermatitis GERD (gastroesophageal reflux disease) CAD (coronary artery disease) Type 2 diabetes mellitus (HFpEF) heart failure with preserved ejection fraction Family History Family History Father Kidney cancer, primary, with metastasis from kidney to other site Heart disease Surgical History Surgical History Hx of colonoscopy Status post percutaneous transluminal angioplasty ([employer]) with stent placement Social History Social History Household Members: Other Housing: House Are you a primary certified social workers in health care to a significant other at home: No Do you presently have visiting nurse or other home services: Yes Alcohol intake: current Alcohol intake frequency: holidays/special occasions only Patient Tobacco Use Status: Never used Tobacco Second Hand Smoke Exposure: No Advance Directives Date on File: 02/13/23 service: No Meds Allergies Allergy/AdvReac Type Severity Reaction Status Date / Time peanut (PEANUTS) Allergy Intermediate Hives Verified 12/14/24 10:24 wool (WOOL) Allergy Unknown UNK Verified 12/14/24 10:24 Active Medications: Current Medications Acetaminophen (Acetaminophen 325 Mg Tablet) 650 mg PO Q6H PRN PRN Reason: Pain, Mild 1-3,fever,headache Last Admin: 12/23/24 09:41 Dose: 650 mg Aspirin (Aspirin 81 Mg Tab.Chew) 81 mg PO DAILY [facility] Last Admin: 12/24/24 08:27 Dose: 81 mg Atorvastatin Calcium (Atorvastatin Calcium 40 Mg Tablet) 40 mg PO BEDTIME [facility] Last Admin: 12/23/24 20:27 Dose: 40 mg Dextrose (Dextrose 50 % 25 Gm/50 Ml Syringe) 25 gm IVPUSH Q15M PRN; Protocol PRN Reason: per Hypoglycemia Standing Ord. Diltiazem HCl (Diltiazem Hcl 30 Mg Tablet) 30 mg PO QID [facility]; Protocol Last Admin: 12/24/24 17:15 Dose: 30 mg Glucose (Glucose Gel 15 Gm Gel..Gram.) 15 gm PO Q15M PRN; Protocol PRN Reason: per Hypoglycemia Standing Ord. Diltiazem HCl 125 mg/ Sodium (Chloride) 125 mls @ 0 mls/hr IVCONT .Q0M [facility]; Protocol Last Titration: 12/23/24 15:41 Dose: 0 mg/hr, 0 mls/hr Piperacillin Sod/Tazobactam (Sod 4.5 gm/ Sodium Chloride) 100 mls @ 200 mls/hr IV Q6H [facility] Last Infusion: 12/24/24 17:47 Dose: Infused Lactated Ringer's (Lr) 500 mls @ 100 mls/hr IV .Q5H [facility] Stop: 12/24/24 20:59 Last Admin: 12/24/24 17:13 Dose: 100 mls/hr Insulin Human Lispro (Insulin Lispro 100 Unit/Ml 3 Ml Vial) 0 unit SUBCUT QIDACHS [facility]; Protocol Last Admin: 12/24/24 17:15 Dose: 4 unit Lactic Acid (Ammonium Lactate 12 % Cream 140 Gm Tube) 1 appl TOPICAL DAILY PRN; Protocol PRN Reason: Dry Skin Last Admin: 12/23/24 14:51 Dose: 1 appl Metoprolol Tartrate (Metoprolol Tartrate 25 Mg Tablet) 25 mg PO QID [facility]; Protocol Last Admin: 12/24/24 17:15 Dose: 25 mg Olanzapine (Olanzapine 10 Mg Vial) 5 mg IM DAILY PRN PRN Reason: Agitation Last Admin: 12/24/24 00:11 Dose: 5 mg Sodium Chloride (0.9 % Sodium Chloride Flush 3 Ml Syringe) 3 ml IVFLUSH QSHIFT [facility] Last Admin: 12/24/24 17:09 Dose: 3 ml Warfarin Sodium (Warfarin Sodium 2.5 Mg Tablet) 2.5 mg PO TUTH@1800 [facility] Last Admin: 12/21/24 17:44 Dose: 2.5 mg Warfarin Sodium (Warfarin Sodium 5 Mg Tablet) 5 mg PO SUMOWEFRSA@1800 [facility] Last Admin: 12/24/24 18:01 Dose: 5 mg Home Medications ?Medication ?Instructions ?Recorded ?Confirmed ?Last Taken ?Type atorvastatin 40 mg tablet 40 mg PO BEDTIME 09/03/2212/14/24 History dulaglutide 1.5 mg/0.5 mL 1.5 mg subcut TH@0900 12/14/24 12/09/24 History subcutaneous pen injector (Trulicity) folic acid 1 mg tablet 1 mg PO DAILY@1200 09/04/22 12/14/24 12/14/24 History insulin lispro 100 unit/mL See Rx Instructions .Route .COMPLEX 09/04/22 12/14/24 12/14/24 History subcutaneous solution (Humalog U-100 Insulin) flash glucose scanning reader #1 ea 01/06/23 03/09/24 Unknown History (FreeStyle Pat 2 [place]) flash glucose sensor (FreeStyle #1 ea 01/06/23 4 Unknown History Pat 2 Sensor kit) ammonium lactate 12 % topical cream 1 appl topical HEBER LY PRN Wound Care 02/12/23 12/14/24 Unknown History silver sulfadiazine 1 % topical 1 appl topical DAILY P cleaning manager 02/12/23 12/14/24 Unknown History cream sub-q insulin device, 20 unit 02/12/23 03/09/2403/24 History (V-GO 20 device) warfarin 5 mg tablet 5 mg PO SUMOWEFRSA@1800 01/2012/14/24 1 Day Ago History ~12/13/24 metformin 500 mg tablet,extended 500 mg PO BID 4 12/14/24 12/14/24 History release 24 hr diltiazem HCl 120 mg tablet 120 mg PO DAILY 03/23/24 0 12/14/24 12/14/24 History aspirin 81 mg tablet,delayed 81 mg PO DAILY 05/12/24 0 12/14/24 12/14/24 History release (Adult Aspirin Regimen) metoprolol tartrate 100 mg tablet 150 mg PO BID@0900,1 700 12/14/24 12/14/24 12/14/24 History warfarin 5 mg tablet 2.5 mg PO TUTH@1800 12/14/24 12/14/24 1 Day Ago History ~12/13/24 Physical Exam 2 Vital Signs: Vital Signs: Last Vital Signs Temp 99.0 F 12/24/24 15:32 Pulse 85 12/24/24 15:32 Resp 16 12/24/24 15:32 BP 135/83 12/24/24 15:32 Pulse Ox 94 12/24/24 15:32 O2 Del Method Nasal Cannula 12/24/24 15:32 O2 Flow Rate 4 12/24/24 15:32 FiO2 24 12/23/24 03:26 Oxygen Flow Rate 4 12/14/24 10:24 BMI result Body Mass Index 31.1 GENERAL APPEARANCE: in no acute distress, frail. NECK: no carotid bruit, + jugular venous distention. SKIN: no suspicious lesions, warm and dry. HEART: no murmurs, irregular rate and rhythm. LUNGS: clear to auscultation bilaterally. ABDOMEN: soft, nontender. EXTREMITIES: Bilateral edema. Bilateral leg dressings. PERIPHERAL PULSES: equal. NEUROLOGIC: No gross deficits, AAO X 3 Objective Labs and Meds 12/24/24 06:14 12/24/24 06:14 Lab results: Laboratory Results - last 24 hr 12/23/24 12/24/24 12/24/24 20:58 06:14 07:04 WBC 7.1 RBC 5.47 Hgb 12.9 L Hct 42.7 MCV 78.1 L MCH 23.6 L MCHC 30.2 L RDW 19.3 H Plt Count 217 MPV 9.2 L Immature Gran % (Auto) 0.3 Neut % (Auto) 72.1 Lymph % (Auto) 11.3 L [place] % (Auto) 11.9 H Eos % (Auto) 3.8 Baso % (Auto) 0.6 Lymph # (Auto) 0.8 L [place] # (Auto) 0.8 Eos # (Auto) 0.3 Baso # (Auto) 0.0 Abs Immat Gran (auto) 0.02 Absolute Neuts (auto) 5.1 Absolute Nucleated RBC 0.000 Nucleated RBC % (auto) 0.0 PT 36.6 H INR 3.2 H Sodium 143 Potassium 3.8 Chloride 111 H Carbon Dioxide 26 Anion Gap 10 L BUN 32 H Creatinine 0.71 Estim Creat Clear Calc 130.9 Estimated GFR > 60 POC Glucose 174 H 154 H Random Glucose 174 H Calcium 8.7 12/24/24 12/24/24 11:14 16:09 WBC RBC Hgb Hct MCV MCH MCHC RDW Plt Count MPV Immature Gran % (Auto) Neut % (Auto) Lymph % (Auto) [place] % (Auto) Eos % (Auto) Baso % (Auto) Lymph # (Auto) [place] # (Auto) Eos # (Auto) Baso # (Auto) Abs Immat Gran (auto) Absolute Neuts (auto) Absolute Nucleated RBC Nucleated RBC % (auto) PT INR Sodium Potassium Chloride Carbon Dioxide Anion Gap BUN Creatinine Estim Creat Clear Calc Estimated GFR POC Glucose 222 H 204 H Random Glucose Calcium Assessment and Plan (1) CHF (congestive heart failure): Status: Acute (2) Atrial fibrillation: Status: Acute Plan Pleasant 74 year gentleman with admission to ICU recently we pneumonia and respiratory failure. He also had congestive heart failure during the ICU admission. Diuresed and overall improved. Chest x-ray is showing small effusion on December 21. He has mild JVD by examination. I think he should be on oral diuretics regularly. Chronic atrial fibrillation-rate control strategy. Agree with continuing beta- ela and low-dose diltiazem. Thank you for allowing me to participate in the care of your patient. Please feel free to contact me if you have any questions. Procedures Date of Service Date of Service: 12/24/24
[2024-12-24 20:34] LABS: Glucose, Whole Blood 223 mg/dL (60-115)
[2024-12-25] VITALS (12 sets, daily range): BP systolic 91–127; BP diastolic 56–69; PULSE 68–114; RESP 16–20; TEMP 36.1–37.1; O2SAT 91–96
[2024-12-25 06:31] LABS: MANUAL DIFF FLAG NO
[2024-12-25 06:33] LABS: Hematocrit 43.1 % (42.0-52.0); Hemoglobin 12.7 g/dl (14.0-18.0); Imm Gran Abs Auto 0.02 X10*3/uL (0.00-0.03); Imm Gran Pct Auto 0.3 % (0.0-0.4); Lymphocytes Absolute Auto 0.8 X10*3/uL (1.2-4.9); Mean Corpuscular HGB Conc 29.5 g/dl (31.0-36.0); Mean Corpuscular Hemoglobin 23.4 pg (27.0-33.0); Mean Corpuscular Volume 79.4 fL (80.0-98.0); NRBC Abs Auto 0.000 X10*3/uL (0.0-0.012); NRBC Pct Auto 0.0 /100WBC (0.0-0.2); Platelet Count 191 X10*3/uL (160-400); Red Blood Count 5.43 X10*6/uL (4.60-5.80); White Blood Count 5.8 X10*3/uL (4.8-10.8)
[2024-12-25 06:46] LABS: INTERNATIONAL NORM RATIO 2.4 (0.9-1.1); Prothrombin Time 27.9 SEC (10.9-12.4)
[2024-12-25 06:53] LABS: Anion Gap 10 (12-20); Blood Urea Nitrogen 24 mg/dL (9-16); Calcium 8.5 mg/dL (8.4-10.2); Carbon Dioxide 27 mmol/L (22-29); Chloride 111 mmol/L (96-108); Creatinine Clr Calc Pharmacy 138.7; Estimated Glomerular Filt Rate > 60; Potassium 3.5 mmol/L (3.3-5.1); Sodium 144 mmol/L (135-145)
[2024-12-25 07:01] LABS: Glucose, Whole Blood 176 mg/dL (60-115)
[2024-12-25] MEDS: 0.9 % Sodium Chloride Flush 3 ML SYRINGE IVFLUSH ×2 (08:28→16:59)
[2024-12-25 10:56] LABS: Glucose, Whole Blood 247 mg/dL (60-115)
--- NOTE | 2024-12-25 16:04 | HO.PM.IMPN ---
Subjective Subjective Date of Service: 12/25/24 Interval History: Feels well today. No new complaints. No complaints in relation to his breathing. The patient denies palpitations, dizziness or diaphoresis. Has been urinating more frequently. Has also tried sitting up in the bed and in the chair yesterday. by bedside, discussed current plan and management with her in depth. Review of Systems Review of Systems: Yes all other systems are reviewed and are negative Physical Exam Exam: Exam: General: A&O x3, oriented to time place person and situation, comfortable, no pain. Significant thoracocervical kyphosis. Cardiac: S1, S2 auscultated with no S3/4, no MRG. Well perfused. Respiratory: Decreased inspiratory and expiratory breath sounds bilaterally. Bibasilar crepitations auscultated at the bilateral lower lobes. No wheezing auscultated on examination. Congested sounding cough. No cyanosis, tachypnea. GI/ : No abdominal pain on palpation, no masses or distentions. MSK: Normal ambulation without pain at bony prominences or musculature. Lower extremities: Bilateral lower extremity swelling 2+ to the mid shins, with significant evidence of lipodermatosclerosis and dry skin. Neurological: Normal neurological examination on overview, without obvious CN II-XII abnormalities. Vital Signs: Vital Signs: Last Vital Signs Temp 97.6 F 12/25/24 15:25 Pulse 68 12/25/24 15:25 Resp 16 12/25/24 15:25 BP 109/59 L 12/25/24 15:25 Pulse Ox 92 12/25/24 15:25 O2 Del Method Nasal Cannula 12/25/24 15:25 O2 Flow Rate 3 12/25/24 15:25 FiO2 24 12/23/24 03:26 Oxygen Flow Rate 4 12/14/24 10:24 BMI result Body Mass Index 31.1 Objective Data Active Medications Acetaminophen (Acetaminophen 325 Mg Tablet) 650 mg PO Q6H PRN PRN Reason: Pain, Mild 1-3,fever,headache Last Admin: 12/25/24 08:30 Dose: 650 mg Documented By: AHMET Aspirin (Aspirin 81 Mg Tab.Chew) 81 mg PO DAILY [facility] Last Admin: 12/25/24 08:28 Dose: 81 mg Documented By: AHMET Atorvastatin Calcium (Atorvastatin Calcium 40 Mg Tablet) 40 mg PO BEDTIME [facility] Last Admin: 12/24/24 21:54 Dose: 40 mg Documented By: MARIA ELENA Dextrose (Dextrose 50 % 25 Gm/50 Ml Syringe) 25 gm IVPUSH Q15M PRN; Protocol PRN Reason: per Hypoglycemia Standing Ord. Diltiazem HCl (Diltiazem Hcl 60 Mg Tablet) 60 mg PO QID [facility]; Protocol Last Admin: 12/25/24 12:08 Dose: 60 mg Documented By: AHMET Glucose (Glucose Gel 15 Gm Gel..Gram.) 15 gm PO Q15M PRN; Protocol PRN Reason: per Hypoglycemia Standing Ord. Diltiazem HCl 125 mg/ Sodium (Chloride) 125 mls @ 0 mls/hr IVCONT .Q0M [facility]; Protocol Last Titration: 12/23/24 15:41 Dose: 0 mg/hr, 0 mls/hr Documented By: JAMEE Piperacillin Sod/Tazobactam (Sod 4.5 gm/ Sodium Chloride) 100 mls @ 200 mls/hr IV Q6H [facility] Last Infusion: 12/25/24 12:13 Dose: Infused Documented By: AHMET Insulin Human Lispro (Insulin Lispro 100 Unit/Ml 3 Ml Vial) 0 unit SUBCUT QIDACHS [facility]; Protocol Last Admin: 12/25/24 11:46 Dose: 4 unit Documented By: AHMET Lactic Acid (Ammonium Lactate 12 % Cream 140 Gm Tube) 1 appl TOPICAL DAILY PRN; Protocol PRN Reason: Dry Skin Last Admin: 12/23/24 14:51 Dose: 1 appl Documented By: HELIO Metoprolol Tartrate (Metoprolol Tartrate 25 Mg Tablet) 25 mg PO QID [facility]; Protocol Last Admin: 12/25/24 12:08 Dose: 25 mg Documented By: AHMET Olanzapine (Olanzapine 10 Mg Vial) 5 mg IM DAILY PRN PRN Reason: Agitation Last Admin: 12/24/24 00:11 Dose: 5 mg Documented By: GENA Sodium Chloride (0.9 % Sodium Chloride Flush 3 Ml Syringe) 3 ml IVFLUSH QSHIFT [facility] Last Admin: 12/25/24 08:28 Dose: 3 ml Documented By: AHMET Warfarin Sodium (Warfarin Sodium 2.5 Mg Tablet) 2.5 mg PO TUTH@1800 [facility] Last Admin: 12/21/24 17:44 Dose: 2.5 mg Documented By: CTORRZ Warfarin Sodium (Warfarin Sodium 5 Mg Tablet) 5 mg PO SUMOWEFRSA@1800 [facility] Last Admin: 12/24/24 18:01 Dose: 5 mg Documented By: JUDIE Labs 12/25/24 06:22 12/25/24 06:22 Labs: Laboratory Results - last 24 hr 12/24/24 12/24/24 12/25/24 16:09 20:16 06:22 MCV 79.4 L MCH 23.4 L MCHC 29.5 L RDW 19.5 H Plt Count 191 MPV 8.7 L Immature Gran % (Auto) 0.3 Neut % (Auto) 68.7 Lymph % (Auto) 13.4 L [place] % (Auto) 11.8 H Eos % (Auto) 5.5 H Baso % (Auto) 0.3 Lymph # (Auto) 0.8 L [place] # (Auto) 0.7 Eos # (Auto) 0.3 Baso # (Auto) 0.0 Abs Immat Gran (auto) 0.02 Absolute Neuts (auto) 4.0 Absolute Nucleated RBC 0.000 Nucleated RBC % (auto) 0.0 PT 27.9 H D INR 2.4 H Anion Gap 10 L Estim Creat Clear Calc 138.7 Estimated GFR > 60 POC Glucose 204 H 223 H Random Glucose 166 H Calcium 8.5 12/25/24 12/25/24 06:57 10:46 MCV MCH MCHC RDW Plt Count MPV Immature Gran % (Auto) Neut % (Auto) Lymph % (Auto) [place] % (Auto) Eos % (Auto) Baso % (Auto) Lymph # (Auto) [place] # (Auto) Eos # (Auto) Baso # (Auto) Abs Immat Gran (auto) Absolute Neuts (auto) Absolute Nucleated RBC Nucleated RBC % (auto) PT INR Anion Gap Estim Creat Clear Calc Estimated GFR POC Glucose 176 H 247 H Random Glucose Calcium Assessment and Plan (1) Acute CHF: Status: Acute (2) Acute hypercapnic respiratory failure: Status: Acute (3) Pneumonia: Status: Acute (4) Respiratory failure with hypoxia and hypercapnia: Status: Acute (5) Anasarca: Status: Acute (6) Atrial fibrillation: Status: Acute Plan 74M PMH chronic diastolic CHF, diabetes, coronary disease status post stent, DVT/PE on warfarin, paroxysmal AFib, obesity, chronic lymphedema, presented 12/14/24 with dyspnea, admitted with acute multifactorial hypoxic respiratory failure in the setting of aspiration pneumonia, mixed chronic obstructive/restrictive pulmonary disease, CHF exacerbation & AFib RVR complicated by hypercapnic respiratory failure requiring BiPAP and MICU transfer 12/15/24, s/p treatment with BiPAP, IV diuretics, Precedex drip and downgraded 12/19. Acute metabolic encephalopathy MICU delerium Multifocal acute hypoxic and hypercapneic respiratory failure - Acute on chronic diastolic CHF - Obstructive and restrictive pulmonary disease - Aspiration pneumonia Presents with shortness of breath and fatigue, admitted with multifactorial acute hypoxic respiratory failure, developing hypercapnia. Etiology 2/2 acute on chronic CHF exacerbation in the setting of aspiration pneumonia. Patient's superimposed restrictive pulmonary disease 2/2 cervical kyphosis contributing to patient's hypercapnia and acute respiratory decompensation. Patient was diuresed in the medical ICU and required BiPAP and antibiotics. Patient now euvolemic, holding further diuretics, continue BiPAP at nighttime. Outpatient services recommending sleep study - likely KIRILL. Gradual reintroduction of furosemide Continue pulmonary toilet & hygiene Oxygen p.r.n. BiPAP nightly Dehydration Suffering with mild dehydration, with borderline sodium and elevated BUN. No evidence of ELMIRA. With hydration 1 L LR, the patient's heart rate has normalized further. 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 RVR has resolved. Initially 2/2 hypoxia and hypercapnia, along with CHF exacerbation, currently back to clinical baseline. Has improved significantly after now hydration. Plan - continue beta-ela - transitioned to p.o. diltiazem, increase dose to 60 mg q.6 hours - continue warfarin INR 2-3 Chronic lymphedema Continue compression Obesity Has had recent successful weight loss QUALITY [employer]RICS - VTE: Warfarin INR 2-3 - CODE STATUS: Full code - DIET: Aspiration precautions Total time managing care of this patient today: 45 minutes. Quality Stroke Does the patient have a stroke diagnosis?: No VTE Prior VTE?: Yes VTE Risk Level:: Medical - moderate - high VTE Device Contraindication: N/A - Device Ordered VTE Drug Contraindication: N/A - Med Ordered
[2024-12-25 16:41] LABS: Glucose, Whole Blood 182 mg/dL (60-115)
[2024-12-25 21:07] LABS: Glucose, Whole Blood 281 mg/dL (60-115)
[2024-12-26] VITALS (12 sets, daily range): BP systolic 107–121; BP diastolic 56–71; PULSE 74–104; RESP 16–24; TEMP 36.1–36.9; O2SAT 89–96
[2024-12-26] MEDS: 0.9 % Sodium Chloride Flush 3 ML SYRINGE IVFLUSH ×4 (01:03→22:44)
[2024-12-26 07:59] LABS: Glucose, Whole Blood 202 mg/dL (60-115)
[2024-12-26 08:09] LABS: MANUAL DIFF FLAG NO
[2024-12-26 08:29] LABS: Hematocrit 44.2 % (42.0-52.0); Hemoglobin 13.1 g/dl (14.0-18.0); Imm Gran Abs Auto 0.03 X10*3/uL (0.00-0.03); Imm Gran Pct Auto 0.6 % (0.0-0.4); Lymphocytes Absolute Auto 0.8 X10*3/uL (1.2-4.9); Mean Corpuscular HGB Conc 29.6 g/dl (31.0-36.0); Mean Corpuscular Hemoglobin 23.5 pg (27.0-33.0); Mean Corpuscular Volume 79.4 fL (80.0-98.0); NRBC Abs Auto 0.000 X10*3/uL (0.0-0.012); NRBC Pct Auto 0.0 /100WBC (0.0-0.2); Platelet Count 188 X10*3/uL (160-400); Red Blood Count 5.57 X10*6/uL (4.60-5.80); White Blood Count 5.4 X10*3/uL (4.8-10.8)
[2024-12-26 08:34] LABS: INTERNATIONAL NORM RATIO 2.4 (0.9-1.1); Prothrombin Time 27.4 SEC (10.9-12.4)
[2024-12-26 08:52] LABS: Anion Gap 10 (12-20); Blood Urea Nitrogen 21 mg/dL (9-16); Calcium 8.5 mg/dL (8.4-10.2); Carbon Dioxide 29 mmol/L (22-29); Chloride 109 mmol/L (96-108); Creatinine Clr Calc Pharmacy 122.3; Estimated Glomerular Filt Rate > 60; Potassium 3.4 mmol/L (3.3-5.1); Sodium 145 mmol/L (135-145)
[2024-12-26 11:35] LABS: Glucose, Whole Blood 204 mg/dL (60-115)
[2024-12-26 16:35] LABS: Glucose, Whole Blood 107 mg/dL (60-115)
[2024-12-26 20:07] LABS: Glucose, Whole Blood 183 mg/dL (60-115)
[2024-12-27] VITALS (18 sets, daily range): BP systolic 96–124; BP diastolic 54–65; PULSE 69–108; RESP 18–32; TEMP 36.3–37.9; O2SAT 85–100
[2024-12-27 07:26] LABS: Glucose, Whole Blood 164 mg/dL (60-115)
[2024-12-27 08:05] LABS: MANUAL DIFF FLAG NO
[2024-12-27 08:10] LABS: Hematocrit 43.2 % (42.0-52.0); Hemoglobin 12.4 g/dl (14.0-18.0); Imm Gran Abs Auto 0.02 X10*3/uL (0.00-0.03); Imm Gran Pct Auto 0.3 % (0.0-0.4); Lymphocytes Absolute Auto 0.7 X10*3/uL (1.2-4.9); Mean Corpuscular HGB Conc 28.7 g/dl (31.0-36.0); Mean Corpuscular Hemoglobin 23.6 pg (27.0-33.0); Mean Corpuscular Volume 82.1 fL (80.0-98.0); NRBC Abs Auto 0.000 X10*3/uL (0.0-0.012); NRBC Pct Auto 0.0 /100WBC (0.0-0.2); Platelet Count 212 X10*3/uL (160-400); Red Blood Count 5.26 X10*6/uL (4.60-5.80); White Blood Count 7.2 X10*3/uL (4.8-10.8)
[2024-12-27 08:12] LABS: INTERNATIONAL NORM RATIO 2.9 (0.9-1.1); Prothrombin Time 32.8 SEC (10.9-12.4)
[2024-12-27 08:26] LABS: Anion Gap 9 (12-20); Blood Urea Nitrogen 20 mg/dL (9-16); Calcium 8.4 mg/dL (8.4-10.2); Carbon Dioxide 31 mmol/L (22-29); Chloride 108 mmol/L (96-108); Creatinine Clr Calc Pharmacy 117.6; Estimated Glomerular Filt Rate > 60; Potassium 4.0 mmol/L (3.3-5.1); Sodium 144 mmol/L (135-145)
[2024-12-27] MEDS: 0.9 % Sodium Chloride Flush 3 ML SYRINGE IVFLUSH ×3 (09:50→23:00)
[2024-12-27 11:40] LABS: Glucose, Whole Blood 297 mg/dL (60-115)
--- NOTE | 2024-12-27 12:04 | HO.WOUND ---
Wound Consult: Follow up 74 yr old male admitted to [facility] on 12/14/24- See progress notes and H&P for detailed history. Wound consult follow up for buttock and bilateral legs. Patient agreeable to assessment and photo documentation. Patyient reports continued comfort with bed and setting maintained. He is in the Agility Pulsate bed - with setting to 5bars and 5 min intervals and reports increased comfort. He reports improvement to the tenderness and discomfort to his buttock. He was repositioned in bed and he is noted to have much more control and participation in moving his own body - he was congratulated on this. Over all his buttock continued to be of unclear etiology. The tissue is improving overall. The red maroon light purple areas are blanching in vashti areas. Over the coccyx remains free of PI. 12/15/24 On admission 12/22/24 assessment 12/23/24 12/24/24 12/27/24 Todays assessment continues to evolve - there are areas of improvement to the periwound, color pigmentation and wound beds themselves. There are purple areas that are blanching which do not occur when pressure injury is involved. There is MASD noted as patient continued to be incontinent of urine and stool. Male purewick in use. Etiology remains unclear at this time will continue to assess and treat. Topical recommendations remain the same at this time. Triad and foam cover dressing in addition to off loading pressure with Q 2 hr turns. Patient educated on importance of allowing care and turning and reposition and participating in movement. Refusals were reported and discussed. The patient is noted to have purple purpura like skin changes noted to various areas such as the right leg and right hip area not related to pressure injury. Given the high INR that remains this is likely a component of the skin pigmentation changes noted in addition or MASD- IAD. Bilateral Leg dressing changed - no new topical recommendations needed - legs overall continue to improve. As mentioned above there is a purple purpura like pigmentation and skin tear noted to the left lateral lower leg that is new and not consistent with pressure. Treated with xeroform and gauze wrap. Ammonium lactate applied at bedside. Details from prior assessment: Patient was noted to have prior stage 3 Pressure Injury on admission with purple intact hyperpigmented tissue to the periwound. Todays assessment reveals significant skin changes with unclear etiology at this time. Chart review completed: Patient hospital course has been complicated Acute on Chronic Respiratory Failure, ICU course required pressor support for 4days, Patient refusals of care including turns and care, Chronic Blood thinner use INR of up to 4.2. The Etiology remains unclear at this time - there is a pressure component as he had a stage 3 PI POA, however given the above clinical picture and the irregular pattern of pigmentation changes and the lack of pigmentation over the coccyx. Etiology will remain unknown at this time and inpatient wound care will continue to see and assess patient. Currently on DUNG mattress, Wedges in use at bedside along with pillows. Agility bed - Pulsate extra long with bolsters ordered today to accommodate his height and turns in bed along with skin health benefits. Unknown Etiology: DTI in evolution vs Ischemia Previously right buttock stage 3 pressure injury Present on Admission Wound Bed: Dark purple nonblanchable tissue with epidermal lifting Drainage / Odor: scant sanguineous, no odor Edges: ?irregular Tiera wound: ?Dark red blanchable tissue - No Induration, Fluctuance or Warmth noted - chronic moisture/friction/shearing. Pain: tenderness at times reported by patient Goals of Treatment: ? offloading and Triad bilateral legs dressing removed - noted for small resurfacing venous wound to each lower leg - surrounding tissue with thicken scaling lifting tissue, evidence of prior swelling, hemosiderin staining noted. Treated with xeroform and gazue wrap. Provider to consider Ammonium Lactate cream. Bilateral ears noted with intact and blanchable redness, reid foams in use. Recommendations: 1. Turn and Reposition every 2 hours and as needed for patient comfort. Use pillows or wedges to support off loading positions. 2. Off Load all bony prominences with use of pillows and heel boots if needed. Apply Preventative foams where needed. 3. Monitor for incontinence and moisture control, use barrier creams when needed for prevention and treatment. 4. Provide adequate and supplemental nutrition. 5. Order or Continue low air loss mattress. 6. When applicable maintain blood glucose levels per Providers order. Buttocks: Off Load Pressure with Q2 hr turns and use of pillows - Cleanse with PH balance spray or wipes, pat dry. ?Apply thin layer of Triad to wound bed. Do not remove all of paste between applications as this may cause further skin damage.? Cover with foam dressing to aid in off loading and protection from friction. Change every 3 days and PRN. Bilateral Lower Legs - Cleanse with NS moist gauze, pat dry. Apply Ammonium lactate cream per provider orders. Cover open wound bed with xeroform, ABd pad and gauze wrap. Change Daily while inpatient. Contonue follow up outpt wound care at time of d/c. Re-consult wound care Nurse for wound deterioration or wound changes.
--- NOTE | 2024-12-27 13:10 | MHC.CLN ---
F/U PO INTAKE CONTINUES VARIABLE, 0-100% DIET RX:DIET ADVANCED TO 2000DM CHOPPED RECEIVING ENSURE MAX BID TO PROMOTE WOUND HEALING SUPP PROVIDES 300KCALS, 60G PROTEIN WITH 100% ACCEPTANCE CONTINUE TO MONITOR PO INTAKE AND ENCOURAGE SUPPLEMENTS
[2024-12-27] MEDS: Albuterol Sulfate 5 MG, Albuterol/Iprat 2.5/0.5MG 3 ML 3 ML INHALE (14:31)
[2024-12-27 16:02] LABS: Glucose, Whole Blood 192 mg/dL (60-115)
--- NOTE | 2024-12-27 16:04 | MHC.CM.PN ---
EMR reviewed and per MD rounds, pt is not medically cleared for discharge.
--- NOTE | 2024-12-27 16:41 | HO.PM.IMPN ---
Subjective Subjective Date of Service: 12/26/24 Interval History: No new issues. Breathing well, dry cough with production of clear sputum SpO2 stable, remains on O2 NC. Review of Systems Review of Systems: Yes all other systems are reviewed and are negative Physical Exam Exam: Exam: General: A&O x3, oriented to time place person and situation, comfortable, no pain. Significant thoracocervical kyphosis. Cardiac: S1, S2 auscultated with no S3/4, no MRG. Well perfused. Respiratory: Decreased inspiratory and expiratory breath sounds bilaterally. Bibasilar crepitations auscultated at the bilateral lower lobes. No wheezing auscultated on examination. Congested sounding cough. No cyanosis, tachypnea. GI/ : No abdominal pain on palpation, no masses or distentions. MSK: Normal ambulation without pain at bony prominences or musculature. Lower extremities: Bilateral lower extremity swelling 2+ to the mid shins, with significant evidence of lipodermatosclerosis and dry skin. Neurological: Normal neurological examination on overview, without obvious CN II-XII abnormalities. Vital Signs: Vital Signs: Last Vital Signs Temp 100.0 F 12/27/24 15:34 Pulse 90 12/27/24 15:34 Resp 20 12/27/24 15:34 BP 101/59 L 12/27/24 15:34 Pulse Ox 95 12/27/24 15:34 O2 Del Method BiPAP 12/27/24 15:34 O2 Flow Rate 7 12/27/24 14:15 FiO2 24 12/23/24 03:26 Oxygen Flow Rate 4 12/14/24 10:24 BMI result Body Mass Index 31.1 Objective Data Active Medications Acetaminophen (Acetaminophen 325 Mg Tablet) 650 mg PO Q6H PRN PRN Reason: Pain, Mild 1-3,fever,headache Last Admin: 12/26/24 08:26 Dose: 650 mg Documented By: AHMET Aspirin (Aspirin 81 Mg Tab.Chew) 81 mg PO DAILY [facility] Last Admin: 12/27/24 08:43 Dose: 81 mg Documented By: PAULO Atorvastatin Calcium (Atorvastatin Calcium 40 Mg Tablet) 40 mg PO BEDTIME [facility] Last Admin: 12/26/24 20:35 Dose: 40 mg Documented By: MARIA ELENA Dextrose (Dextrose 50 % 25 Gm/50 Ml Syringe) 25 gm IVPUSH Q15M PRN; Protocol PRN Reason: per Hypoglycemia Standing Ord. Diltiazem HCl (Diltiazem Hcl 60 Mg Tablet) 60 mg PO QID [facility]; Protocol Last Admin: 12/27/24 12:14 Dose: 60 mg Documented By: PAULO Glucose (Glucose Gel 15 Gm Gel..Gram.) 15 gm PO Q15M PRN; Protocol PRN Reason: per Hypoglycemia Standing Ord. Diltiazem HCl 125 mg/ Sodium (Chloride) 125 mls @ 0 mls/hr IVCONT .Q0M [facility]; Protocol Last Titration: 12/23/24 15:41 Dose: 0 mg/hr, 0 mls/hr Documented By: OSVALDOCINIGHAT Piperacillin Sod/Tazobactam (Sod 4.5 gm/ Sodium Chloride) 100 mls @ 200 mls/hr IV Q6H [facility] Last Infusion: 12/27/24 13:05 Dose: Infused Documented By: PAULO Insulin Human Lispro (Insulin Lispro 100 Unit/Ml 3 Ml Vial) 0 unit SUBCUT QIDACHS [facility]; Protocol Last Admin: 12/27/24 12:13 Dose: 6 unit Documented By: PAULO Lactic Acid (Ammonium Lactate 12 % Cream 140 Gm Tube) 1 appl TOPICAL DAILY PRN; Protocol PRN Reason: Dry Skin Last Admin: 12/23/24 14:51 Dose: 1 appl Documented By: HELIO Metoprolol Tartrate (Metoprolol Tartrate 25 Mg Tablet) 25 mg PO QID [facility]; Protocol Last Admin: 12/27/24 12:14 Dose: 25 mg Documented By: PAULO Olanzapine (Olanzapine 10 Mg Vial) 5 mg IM DAILY PRN PRN Reason: Agitation Last Admin: 12/24/24 00:11 Dose: 5 mg Documented By: GENA Sodium Chloride (0.9 % Sodium Chloride Flush 3 Ml Syringe) 3 ml IVFLUSH [facility] Last Admin: 12/27/24 09:50 Dose: 3 ml Documented By: PAULO Warfarin Sodium (Warfarin Sodium 2.5 Mg Tablet) 2.5 mg PO TUTH@1800 [facility] Last Admin: 12/21/24 17:44 Dose: 2.5 mg Documented By: BUNNY Warfarin Sodium (Warfarin Sodium 5 Mg Tablet) 5 mg PO SUMOWEFRSA@1800 [facility] Last Admin: 12/26/24 17:49 Dose: 5 mg Documented By: AHMET Labs 12/27/24 07:38 12/27/24 07:38 Labs: Laboratory Results - last 24 hr 12/26/24 12/27/24 12/27/24 20:02 07:22 07:38 MCV 82.1 MCH 23.6 L MCHC 28.7 L RDW 19.5 H Plt Count 212 MPV 9.3 L Immature Gran % (Auto) 0.3 Neut % (Auto) 77.3 H Lymph % (Auto) 9.8 L [place] % (Auto) 8.7 Eos % (Auto) 3.5 Baso % (Auto) 0.4 Lymph # (Auto) 0.7 L [place] # (Auto) 0.6 Eos # (Auto) 0.3 Baso # (Auto) 0.0 Abs Immat Gran (auto) 0.02 Absolute Neuts (auto) 5.5 Absolute Nucleated RBC 0.000 Nucleated RBC % (auto) 0.0 PT 32.8 H INR 2.9 H Anion Gap 9 L Estim Creat Clear Calc 117.6 Estimated GFR > 60 POC Glucose 183 H 164 H Random Glucose 165 H Calcium 8.4 12/27/24 12/27/24 11:35 15:56 MCV MCH MCHC RDW Plt Count MPV Immature Gran % (Auto) Neut % (Auto) Lymph % (Auto) [place] % (Auto) Eos % (Auto) Baso % (Auto) Lymph # (Auto) [place] # (Auto) Eos # (Auto) Baso # (Auto) Abs Immat Gran (auto) Absolute Neuts (auto) Absolute Nucleated RBC Nucleated RBC % (auto) PT INR Anion Gap Estim Creat Clear Calc Estimated GFR POC Glucose 297 H 192 H Random Glucose Calcium Assessment and Plan (1) CHF (congestive heart failure): Status: Acute (2) Acute CHF: Status: Acute (3) Atrial fibrillation: Status: Acute (4) Acute hypercapnic respiratory failure: Status: Acute (5) Pneumonia: Status: Acute (6) Respiratory failure with hypoxia and hypercapnia: Status: Acute (7) Anasarca: Status: Acute Plan 74M PMH chronic diastolic CHF, diabetes, coronary disease status post stent, DVT/PE on warfarin, paroxysmal AFib, obesity, chronic lymphedema, presented 8/26/25 with dyspnea, admitted with acute multifactorial hypoxic respiratory failure in the setting of aspiration pneumonia, mixed chronic obstructive/restrictive pulmonary disease, CHF exacerbation & AFib RVR complicated by hypercapnic respiratory failure requiring BiPAP and MICU transfer 12/15/24, s/p treatment with BiPAP, IV diuretics, Precedex drip and downgraded 12/19. Acute metabolic encephalopathy MICU delerium Multifocal acute hypoxic and hypercapneic respiratory failure - Acute on chronic diastolic CHF - Obstructive and restrictive pulmonary disease - Aspiration pneumonia Presents with shortness of breath and fatigue, admitted with multifactorial acute hypoxic respiratory failure, developing hypercapnia. Etiology 2/2 acute on chronic CHF exacerbation in the setting of aspiration pneumonia. Patient's superimposed restrictive pulmonary disease 2/2 cervical kyphosis contributing to patient's hypercapnia and acute respiratory decompensation. Patient was diuresed in the medical ICU and required BiPAP and antibiotics. Patient now euvolemic, holding further diuretics, continue BiPAP at nighttime. Outpatient services recommending sleep study - likely KIRILL. Gradual reintroduction of furosemide Continue pulmonary toilet & hygiene Oxygen p.r.n. BiPAP nightly Dehydration Suffering with mild dehydration, with borderline sodium and elevated BUN. No evidence of ELMIRA. With hydration 1 L LR, the patient's heart rate has normalized further. 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 RVR has resolved. Initially 2/2 hypoxia and hypercapnia, along with CHF exacerbation, currently back to clinical baseline. Has improved significantly after now hydration. Plan - continue beta-ela - transitioned to p.o. diltiazem, increase dose to 60 mg q.6 hours - continue warfarin INR 2-3 Chronic lymphedema Continue compression Obesity Has had recent successful weight loss QU[employer] - VTE: Warfarin INR 2-3 - CODE STATUS: Full code - DIET: Aspiration precautions Total time managing care of this patient today: 35 minutes. Quality Stroke Does the patient have a stroke diagnosis?: No VTE Prior VTE?: Yes VTE Risk Level:: Medical - moderate - high VTE Device Contraindication: N/A - Device Ordered VTE Drug Contraindication: N/A - Med Ordered
--- NOTE | 2024-12-27 16:42 | HO.PM.IMPN ---
Subjective Subjective Date of Service: 12/27/24 Interval History: Reports feeling well today. More fatigued as compared to yesterday. His SpO2 decreased to about 92% while on 2 L NC, increase to 4 L NC. The patient was noted to be coughing, with continuous phlegm production; thick with difficulty expectorating. Chest x-ray ordered as well as early initiation of BiPAP on the medical floor. Patient is hemodynamically stable, without new issues or complaints. The patient is alert and oriented, awake and able to communicate clearly. Discussed with the patient's , and informed her of new findings and management. Review of Systems Review of Systems: Yes all other systems are reviewed and are negative Physical Exam Exam: Exam: General: A&O x3, oriented to time place person and situation, comfortable, no pain. Significant thoracocervical kyphosis. Cardiac: S1, S2 auscultated with no S3/4, no MRG. Well perfused. Respiratory: Clear auscultation in the upper and mid zones, with mild end expiratory wheezing auscultated in the mid zones. Bibasilar crepitations auscultated at the bilateral lower lobes, which clears with the patient coughing. Congested sounding cough. No cyanosis, tachypnea. GI/ : No abdominal pain on palpation, no masses or distentions. MSK: Normal ambulation without pain at bony prominences or musculature. Lower extremities: Bilateral lower extremity swelling 2+ to the mid shins, with significant evidence of lipodermatosclerosis and dry skin. Neurological: Normal neurological examination on overview, without obvious CN II-XII abnormalities. Vital Signs: Vital Signs: Last Vital Signs Temp 100.0 F 12/27/24 15:34 Pulse 90 12/27/24 15:34 Resp 20 12/27/24 15:34 BP 101/59 L 12/27/24 15:34 Pulse Ox 95 12/27/24 15:34 O2 Del Method BiPAP 12/27/24 15:34 O2 Flow Rate 7 12/27/24 14:15 FiO2 24 12/23/24 03:26 Oxygen Flow Rate 4 12/14/24 10:24 BMI result Body Mass Index 31.1 Objective Data Active Medications Acetaminophen (Acetaminophen 325 Mg Tablet) 650 mg PO Q6H PRN PRN Reason: Pain, Mild 1-3,fever,headache Last Admin: 12/26/24 08:26 Dose: 650 mg Documented By: AHMET Aspirin (Aspirin 81 Mg Tab.Chew) 81 mg PO DAILY COUNTS INCLUDE 234 BEDS AT THE [facility] Last Admin: 12/27/24 08:43 Dose: 81 mg Documented By: PAULO Atorvastatin Calcium (Atorvastatin Calcium 40 Mg Tablet) 40 mg PO BEDTIME COUNTS INCLUDE 234 BEDS AT THE [facility] Last Admin: 12/26/24 20:35 Dose: 40 mg Documented By: MARIA ELENA Dextrose (Dextrose 50 % 25 Gm/50 Ml Syringe) 25 gm IVPUSH Q15M PRN; Protocol PRN Reason: per Hypoglycemia Standing Ord. Diltiazem HCl (Diltiazem Hcl 60 Mg Tablet) 60 mg PO QID COUNTS INCLUDE 234 BEDS AT THE [facility]; Protocol Last Admin: 12/27/24 12:14 Dose: 60 mg Documented By: PAULO Glucose (Glucose Gel 15 Gm Gel..Gram.) 15 gm PO Q15M PRN; Protocol PRN Reason: per Hypoglycemia Standing Ord. Diltiazem HCl 125 mg/ Sodium (Chloride) 125 mls @ 0 mls/hr IVCONT .Q0M COUNTS INCLUDE 234 BEDS AT THE [facility]; Protocol Last Titration: 12/23/24 15:41 Dose: 0 mg/hr, 0 mls/hr Documented By: JAMEE Piperacillin Sod/Tazobactam (Sod 4.5 gm/ Sodium Chloride) 100 mls @ 200 mls/hr IV Q6H COUNTS INCLUDE 234 BEDS AT THE [facility] Last Infusion: 12/27/24 13:05 Dose: Infused Documented By: PAULO Insulin Human Lispro (Insulin Lispro 100 Unit/Ml 3 Ml Vial) 0 unit SUBCUT QIDACHS COUNTS INCLUDE 234 BEDS AT THE [facility]; Protocol Last Admin: 12/27/24 12:13 Dose: 6 unit Documented By: PAULO Lactic Acid (Ammonium Lactate 12 % Cream 140 Gm Tube) 1 appl TOPICAL DAILY PRN; Protocol PRN Reason: Dry Skin Last Admin: 12/23/24 14:51 Dose: 1 appl Documented By: HELIO Metoprolol Tartrate (Metoprolol Tartrate 25 Mg Tablet) 25 mg PO QID COUNTS INCLUDE 234 BEDS AT THE [facility]; Protocol Last Admin: 12/27/24 12:14 Dose: 25 mg Documented By: PAULO Olanzapine (Olanzapine 10 Mg Vial) 5 mg IM DAILY PRN PRN Reason: Agitation Last Admin: 12/24/24 00:11 Dose: 5 mg Documented By: GENA Sodium Chloride (0.9 % Sodium Chloride Flush 3 Ml Syringe) 3 ml IVFLUSH QSHIFT COUNTS INCLUDE 234 BEDS AT THE [facility] Last Admin: 12/27/24 09:50 Dose: 3 ml Documented By: PAULO Warfarin Sodium (Warfarin Sodium 2.5 Mg Tablet) 2.5 mg PO TUTH@1800 COUNTS INCLUDE 234 BEDS AT THE [facility] Last Admin: 12/21/24 17:44 Dose: 2.5 mg Documented By: MARKUSORRAdalberto Warfarin Sodium (Warfarin Sodium 5 Mg Tablet) 5 mg PO SUMOWEFRSA@1800 COUNTS INCLUDE 234 BEDS AT THE [facility] Last Admin: 12/26/24 17:49 Dose: 5 mg Documented By: MILIING Labs 12/27/24 07:38 12/27/24 07:38 Labs: Laboratory Results - last 24 hr 12/26/24 12/27/24 12/27/24 20:02 07:22 07:38 MCV 82.1 MCH 23.6 L MCHC 28.7 L RDW 19.5 H Plt Count 212 MPV 9.3 L Immature Gran % (Auto) 0.3 Neut % (Auto) 77.3 H Lymph % (Auto) 9.8 L Geary % (Auto) 8.7 Eos % (Auto) 3.5 Baso % (Auto) 0.4 Lymph # (Auto) 0.7 L Geary # (Auto) 0.6 Eos # (Auto) 0.3 Baso # (Auto) 0.0 Abs Immat Gran (auto) 0.02 Absolute Neuts (auto) 5.5 Absolute Nucleated RBC 0.000 Nucleated RBC % (auto) 0.0 PT 32.8 H INR 2.9 H Anion Gap 9 L Estim Creat Clear Calc 117.6 Estimated GFR > 60 POC Glucose 183 H 164 H Random Glucose 165 H Calcium 8.4 12/27/24 12/27/24 11:35 15:56 MCV MCH MCHC RDW Plt Count MPV Immature Gran % (Auto) Neut % (Auto) Lymph % (Auto) Geary % (Auto) Eos % (Auto) Baso % (Auto) Lymph # (Auto) Geary # (Auto) Eos # (Auto) Baso # (Auto) Abs Immat Gran (auto) Absolute Neuts (auto) Absolute Nucleated RBC Nucleated RBC % (auto) PT INR Anion Gap Estim Creat Clear Calc Estimated GFR POC Glucose 297 H 192 H Random Glucose Calcium Assessment and Plan (1) Acute CHF: Status: Acute (2) CHF (congestive heart failure): Status: Acute (3) Atrial fibrillation: Status: Acute (4) Acute on chronic urinary retention: Status: Acute (5) Obstructive uropathy: Status: Acute (6) Acute hypercapnic respiratory failure: Status: Acute (7) Pneumonia: Status: Acute (8) Respiratory failure with hypoxia and hypercapnia: Status: Acute (9) Anasarca: Status: Acute Plan 74M PMH chronic diastolic CHF, diabetes, coronary disease status post stent, DVT/PE on warfarin, paroxysmal AFib, obesity, chronic lymphedema, presented 12/14/24 with dyspnea, admitted with acute multifactorial hypoxic respiratory failure in the setting of aspiration pneumonia, mixed chronic obstructive/restrictive pulmonary disease, CHF exacerbation & AFib RVR complicated by hypercapnic respiratory failure requiring BiPAP and MICU transfer 12/15/24, s/p treatment with BiPAP, IV diuretics, Precedex drip and downgraded 12/19. Hypoxia Acute episode of hypoxia today, which required intermittent use of BiPAP. Chest x-ray completed, revealing some mild pulmonary vasculature congestion, with bibasilar opacifications which is consistent with atelectasis versus developing pneumonia. Patient remains on Zosyn and appropriate antibiotic coverage for atypical organisms. Patient's labs seem inconsistent with an acute CHF exacerbation, and telemetry revealing heart rate has been stable. Impression of potential mucus plug, however worsening or development of acute pneumonia is possible, as well as mild CHF exacerbation. For now, we will utilize BiPAP on the medical floor for continued treatment of atelectasis and probable mucus plug Respiratory therapy aware, and present by bedside. Acute metabolic encephalopathy MICU delerium Multifocal acute hypoxic and hypercapneic respiratory failure - Acute on chronic diastolic CHF - Obstructive and restrictive pulmonary disease - Aspiration pneumonia Presents with shortness of breath and fatigue, admitted with multifactorial acute hypoxic respiratory failure, developing hypercapnia. Etiology 2/2 acute on chronic CHF exacerbation in the setting of aspiration pneumonia. Patient's superimposed restrictive pulmonary disease 2/2 cervical kyphosis contributing to patient's hypercapnia and acute respiratory decompensation. Patient was diuresed in the medical ICU and required BiPAP and antibiotics. Patient now euvolemic, holding further diuretics, continue BiPAP at nighttime. Outpatient services recommending sleep study - likely KIRILL. Gradual reintroduction of furosemide Continue pulmonary toilet & hygiene Oxygen p.r.n. BiPAP nightly Dehydration Suffering with mild dehydration, with borderline sodium and elevated BUN. No evidence of ELMIRA. With hydration 1 L LR, the patient's heart rate has normalized further. 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 RVR has resolved. Initially 2/2 hypoxia and hypercapnia, along with CHF exacerbation, currently back to clinical baseline. Has improved significantly after now hydration. Plan - continue beta-ela - transitioned to p.o. diltiazem, increase dose to 60 mg q.6 hours - continue warfarin INR 2-3 Chronic lymphedema Continue compression Obesity Has had recent successful weight loss QUALITY [employer] - VTE: Warfarin INR 2-3 - CODE STATUS: Full code - DIET: Aspiration precautions Total time managing care of this patient today: 45 minutes. Quality Stroke Does the patient have a stroke diagnosis?: No VTE Prior VTE?: Yes VTE Risk Level:: Medical - moderate - high VTE Device Contraindication: N/A - Device Ordered VTE Drug Contraindication: N/A - Med Ordered
--- NOTE | 2024-12-27 19:50 | PC.NURSE ---
report given to night MARY Velazquez. Both RN did verified pt, O2 level, suction system in rm 485 and they all correct and align w safe start requirement. pt is on correct O2 level, high fall risk precaution in place, suction equipments are available in room. MARY Velazquez is working w IT to solve the issue, unable to do safe start at this time of change of shift.
[2024-12-27 20:04] LABS: Glucose, Whole Blood 230 mg/dL (60-115)
[2024-12-27 23:06] LABS: Glucose, Whole Blood 184 mg/dL (60-115)
[2024-12-28] VITALS (10 sets, daily range): BP systolic 80–119; BP diastolic 50–63; PULSE 70–90; RESP 18–24; TEMP 36.2–36.8; O2SAT 93–100
[2024-12-28 07:49] LABS: Glucose, Whole Blood 175 mg/dL (60-115)
[2024-12-28 07:58] LABS: INTERNATIONAL NORM RATIO 3.0 (0.9-1.1); Prothrombin Time 34.7 SEC (10.9-12.4)
[2024-12-28] MEDS: 0.9 % Sodium Chloride Flush 3 ML SYRINGE IVFLUSH ×4 (09:26→22:02)
--- NOTE | 2024-12-28 09:50 | PC.NURSE ---
After speaking with wound care nurse Yoly, she told me to apply triad cream to coccyx and NO foam as stooling often. This information was passed on to RAMSEY
[2024-12-28 11:52] LABS: Glucose, Whole Blood 221 mg/dL (60-115)
--- NOTE | 2024-12-28 12:08 | HO.WOUND ---
Wound Consult: Follow up 74 yr old male admitted to [facility] on 12/14/24- See progress notes and H&P for detailed history. Wound consult follow up for buttock and bilateral legs. Patient agreeable to assessment and photo documentation. Patient reports continued comfort with bed and setting maintained. He is in the Agility Pulsate bed - with setting to 5bars and 5 min intervals and reports increased comfort. He reports improvement to the tenderness and discomfort to his buttock. Today he continued to participate in turning and repositioning much more so than in the past with encouragement. Over all his buttock continued to be of unclear etiology. The tissue is improving overall. The red maroon light purple areas are blanching in some areas and over the coccyx remains free of PI. The tissue is not consisitent with pressure injury alone and continues to improve and evolve. Wound edges continue to carolyn at this time. 12/15/24 On admission 12/22/24 assessment 12/23/24 12/24/24 12/27/24 12/28/24 Todays assessment continues to evolve - there are areas of improvement to the periwound, color pigmentation and wound beds themselves. The tissue loss seems to declared to deeper partial thickness tissue loss clean moist wound beds. There are maroon pigmented purple areas that are blanching which do not occur when pressure injury is involved. There is MASD noted as patient continued to be incontinent of urine and stool. Male purewick in use. Etiology remains unclear at this time will continue to assess and treat. Topical recommendations updates for traid alone as patient incontinence level has increased and the foam appears to be trapping moisture along the wound beds. Triad along was applied in addition to off loading pressure with Q 2 hr turns. Patient educated on importance of allowing care and turning and reposition and participating in movement. The patient is noted to have purple purpura like skin changes noted to various areas such as the right leg and right hip area not related to pressure injury. Given the high INR that remains this is likely a component of the skin pigmentation changes noted in addition or MASD- IAD. Bilateral Legs dressing not changed with this senior mortgage underwriter no new topical recommendations made at this time. Recommendations: 1. Turn and Reposition every 2 hours and as needed for patient comfort. Use pillows or wedges to support off loading positions. 2. Off Load all bony prominences with use of pillows and heel boots if needed. Apply Preventative foams where needed. 3. Monitor for incontinence and moisture control, use barrier creams when needed for prevention and treatment. 4. Provide adequate and supplemental nutrition. 5. Order or Continue low air loss mattress. 6. When applicable maintain blood glucose levels per Providers order. Buttocks - Off Load Pressure with Q2 hr turns and use of pillows - Cleanse with PH balance spray or wipes, pat dry. ?Apply thin layer of Triad to wound bed - only pat and dab no scrub and rub when soiling occurs. Reapply thin layer PRN after each episode of incontinence. Bilateral Lower Legs - Cleanse with NS moist gauze, pat dry. Apply Ammonium lactate cream per provider orders. Cover open wound bed with xeroform, ABd pad and gauze wrap. Change Daily while inpatient. Contonue follow up outpt wound care at time of d/c. Details from prior assessment: Patient was noted to have prior stage 3 Pressure Injury on admission with purple intact hyperpigmented tissue to the periwound. Todays assessment reveals significant skin changes with unclear etiology at this time. Chart review completed: Patient hospital course has been complicated Acute on Chronic Respiratory Failure, ICU course required pressor support for 4days, Patient refusals of care including turns and care, Chronic Blood thinner use INR of up to 4.2. The Etiology remains unclear at this time - there is a pressure component as he had a stage 3 PI POA, however given the above clinical picture and the irregular pattern of pigmentation changes and the lack of pigmentation over the coccyx. Etiology will remain unknown at this time and inpatient wound care will continue to see and assess patient. Currently on DUNG mattress, Wedges in use at bedside along with pillows. Agility bed - Pulsate extra long with bolsters ordered today to accommodate his height and turns in bed along with skin health benefits. Unknown Etiology: DTI in evolution vs Ischemia Previously right buttock stage 3 pressure injury Present on Admission Wound Bed: Dark purple nonblanchable tissue with epidermal lifting Drainage / Odor: scant sanguineous, no odor Edges: ?irregular Tiera wound: ?Dark red blanchable tissue - No Induration, Fluctuance or Warmth noted - chronic moisture/friction/shearing. Pain: tenderness at times reported by patient Goals of Treatment: ? offloading and Triad bilateral legs dressing removed - noted for small resurfacing venous wound to each lower leg - surrounding tissue with thicken scaling lifting tissue, evidence of prior swelling, hemosiderin staining noted. Treated with xeroform and gazue wrap. Provider to consider Ammonium Lactate cream. Bilateral ears noted with intact and blanchable redness, reid foams in use. Recommendations: 1. Turn and Reposition every 2 hours and as needed for patient comfort. Use pillows or wedges to support off loading positions. 2. Off Load all bony prominences with use of pillows and heel boots if needed. Apply Preventative foams where needed. 3. Monitor for incontinence and moisture control, use barrier creams when needed for prevention and treatment. 4. Provide adequate and supplemental nutrition. 5. Order or Continue low air loss mattress. 6. When applicable maintain blood glucose levels per Providers order. Buttocks: Off Load Pressure with Q2 hr turns and use of pillows - Cleanse with PH balance spray or wipes, pat dry. ?Apply thin layer of Triad to wound bed. Do not remove all of paste between applications as this may cause further skin damage.? Cover with foam dressing to aid in off loading and protection from friction. Change every 3 days and PRN. Bilateral Lower Legs - Cleanse with NS moist gauze, pat dry. Apply Ammonium lactate cream per provider orders. Cover open wound bed with xeroform, ABd pad and gauze wrap. Change Daily while inpatient. Contonue follow up outpt wound care at time of d/c. Re-consult wound care Nurse for wound deterioration or wound changes.
--- NOTE | 2024-12-28 15:43 | P.PNIM_ITS ---
Subjective Subjective Date of Service: 12/28/24 Interval History: Overall continues to make progress, no sob at this time has had episodes of low BP, most recent BP is better He's complaining of dry cough Review of Systems Review of Systems: Yes all other systems are reviewed and are negative Physical Exam 2 Vital Signs: Vital Signs: Last Vital Signs Temp 98 F 12/28/24 11:26 Pulse 82 12/28/24 14:01 Resp 20 12/28/24 11:26 BP 80/50 L 12/28/24 14:01 Pulse Ox 94 12/28/24 14:01 O2 Del Method Nasal Cannula 12/28/24 14:01 O2 Flow Rate 5 12/28/24 14:01 FiO2 24 12/23/24 03:26 Oxygen Flow Rate 4 12/14/24 10:24 BMI result Body Mass Index 31.1 Objective Data Active Medications Acetaminophen (Acetaminophen 325 Mg Tablet) 650 mg PO Q6H PRN PRN Reason: Pain, Mild 1-3,fever,headache Last Admin: 12/28/24 05:45 Dose: 650 mg Documented By: BHAVYA Aspirin (Aspirin 81 Mg Tab.Chew) 81 mg PO DAILY [facility] Last Admin: 12/28/24 09:24 Dose: 81 mg Documented By: SHANNAN Atorvastatin Calcium (Atorvastatin Calcium 40 Mg Tablet) 40 mg PO BEDTIME [facility] Last Admin: 12/27/24 22:34 Dose: 40 mg Documented By: BHAVYA Dextrose (Dextrose 50 % 25 Gm/50 Ml Syringe) 25 gm IVPUSH Q15M PRN; Protocol PRN Reason: per Hypoglycemia Standing Ord. Diltiazem HCl (Diltiazem Hcl 60 Mg Tablet) 60 mg PO QID [facility]; Protocol Last Admin: 12/28/24 13:58 Dose: 60 mg Documented By: SHANNAN Glucose (Glucose Gel 15 Gm Gel..Gram.) 15 gm PO Q15M PRN; Protocol PRN Reason: per Hypoglycemia Standing Ord. Diltiazem HCl 125 mg/ Sodium (Chloride) 125 mls @ 0 mls/hr IVCONT .Q0M [facility]; Protocol Last Titration: 12/23/24 15:41 Dose: 0 mg/hr, 0 mls/hr Documented By: JAMEE Piperacillin Sod/Tazobactam (Sod 4.5 gm/ Sodium Chloride) 100 mls @ 200 mls/hr IV Q6H [facility] Last Infusion: 12/28/24 13:00 Dose: Infused Documented By: SHANNAN Insulin Human Lispro (Insulin Lispro 100 Unit/Ml 3 Ml Vial) 0 unit SUBCUT QIDACHS [facility]; Protocol Last Admin: 12/28/24 12:22 Dose: 4 unit Documented By: SHANNAN Lactic Acid (Ammonium Lactate 12 % Cream 140 Gm Tube) 1 appl TOPICAL DAILY PRN; Protocol PRN Reason: Dry Skin Last Admin: 12/23/24 14:51 Dose: 1 appl Documented By: HELIO Metoprolol Tartrate (Metoprolol Tartrate 25 Mg Tablet) 25 mg PO QID [facility]; Protocol Last Admin: 12/28/24 14:12 Dose: Not Given Documented By: SHANNAN Non-Admin Reason: Decreased Blood Pressure Olanzapine (Olanzapine 10 Mg Vial) 5 mg IM DAILY PRN PRN Reason: Agitation Last Admin: 12/24/24 00:11 Dose: 5 mg Documented By: GENA Sodium Chloride (0.9 % Sodium Chloride Flush 3 Ml Syringe) 3 ml IVFLUSH QSHIFT [facility] Last Admin: 12/28/24 12:23 Dose: 3 ml Documented By: SHANNAN Warfarin Sodium (Warfarin Sodium 2.5 Mg Tablet) 2.5 mg PO TUTH@1800 [facility] Last Admin: 12/21/24 17:44 Dose: 2.5 mg Documented By: BUNNY Warfarin Sodium (Warfarin Sodium 5 Mg Tablet) 5 mg PO SUMOWEFRSA@1800 [facility] Last Admin: 12/27/24 17:34 Dose: 5 mg Documented By: PAULO Labs 12/29/24 07:14 12/29/24 07:14 Labs: Laboratory Results - last 24 hr 12/27/24 12/27/24 12/27/24 15:56 19:59 23:02 Hold Purple Top PT INR POC Glucose 192 H 230 H 184 H 12/28/24 12/28/24 12/28/24 07:26 07:27 07:38 Hold Purple Top SEE NOTE PT 34.7 H INR 3.0 H POC Glucose 175 H 12/28/24 11:32 Hold Purple Top PT INR POC Glucose 221 H Assessment and Plan (1) Acute CHF: Status: Acute (2) CHF (congestive heart failure): Status: Acute (3) Atrial fibrillation: Status: Acute (4) Acute on chronic urinary retention: Status: Acute (5) Obstructive uropathy: Status: Acute (6) Acute hypercapnic respiratory failure: Status: Acute (7) Pneumonia: Status: Acute (8) Respiratory failure with hypoxia and hypercapnia: Status: Acute (9) Anasarca: Status: Acute Plan 74M PMH chronic diastolic CHF, diabetes, coronary disease status post stent, DVT/PE on warfarin, paroxysmal AFib, obesity, chronic lymphedema, presented 12/14/24 with dyspnea, admitted with acute multifactorial hypoxic respiratory failure in the setting of aspiration pneumonia, mixed chronic obstructive/restrictive pulmonary disease, CHF exacerbation & AFib RVR complicated by hypercapnic respiratory failure requiring BiPAP and MICU transfer 12/15/24, s/p treatment with BiPAP, IV diuretics, Precedex drip and downgraded 12/19. Intermittent Hypotension--BP has been fluctuating mentation is good, hold metoprolol if BP on lower side Hypoxia, 12/28 Chest x-ray showed some mild pulmonary vasculature congestion, with bibasilar opacifications which is consistent with atelectasis versus developing pneumonia. Patient remains on Zosyn as an antibiotic coverage for atypical organisms. CHF was deemed less likely. BiPAP to be used as needed for possible mucus pluging and atelectasis. Continuing following up with xray Acute metabolic encephalopathy MICU delerium Multifocal acute hypoxic and hypercapneic respiratory failure - Acute on chronic diastolic CHF - Obstructive and restrictive pulmonary disease - Aspiration pneumonia Presents with shortness of breath and fatigue, admitted with multifactorial acute hypoxic respiratory failure, developing hypercapnia. Etiology 2/2 acute on chronic CHF exacerbation in the setting of aspiration pneumonia. Patient's superimposed restrictive pulmonary disease 2/2 cervical kyphosis contributing to patient's hypercapnia and acute respiratory decompensation. Patient was diuresed in the medical ICU and required BiPAP and antibiotics. Patient now euvolemic, holding further diuretics, continue BiPAP at nighttime. Outpatient services recommending sleep study - likely KIRILL. Gradual reintroduction of furosemide Continue pulmonary toilet & hygiene Delirium has resolved. Oxygen p.r.n. BiPAP nightly Dehydration Suffering with mild dehydration, with borderline sodium and elevated BUN. No evidence of ELMIRA. With hydration 1 L LR, the patient's heart rate has normalized further. 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 RVR has resolved. Initially 2/2 hypoxia and hypercapnia, along with CHF exacerbation, currently back to clinical baseline. Has improved significantly after now hydration. Plan - continue beta-ela metoprolol 25 q 6, will change to 50 bid by the morning - PO cardizem 60 mg q6, will change to long acting by the morning - continue warfarin INR goal of 2-3 Chronic lymphedema Continue compression Obesity Has had recent successful weight loss QUALITY [employer] - VTE: Warfarin INR 2-3 - CODE STATUS: Full code - DIET: Aspiration precautions anticipate dc in 1 to 2 days, discussed with over the phone Total time managing care of this patient today: 45 minutes. Quality Stroke Does the patient have a stroke diagnosis?: No VTE Prior VTE?: Yes VTE Risk Level:: Medical - moderate - high VTE Device Contraindication: N/A - Device Ordered VTE Drug Contraindication: N/A - Med Ordered
[2024-12-28 16:15] LABS: Glucose, Whole Blood 216 mg/dL (60-115)
--- NOTE | 2024-12-28 17:01 | MHC.SL.SWA ---
Speech Pathologist Impression: Risk of Aspiration Due to: Dysphasia Diet Status: Recommend continue on Chopped Advanced (NDD3) Thin liquids, pills whole in puree. Liquid Consistency and Strategies for Safe Swallow: Liquid Intake Recommendation: Thin Liquid Intake Strategies: Small Sips Solid Food Consistency: Dietary Recommendations: Chopped/Advanced (NDD3) Additional Modifications to Solid Foods: Tray set up and encourage patient to eat independently. If patient is dissatisfied with meal, allow patient soft sandwich (e.g. chicken salad, tuna salad) from floor kitchen supply. Oral Medication Intake: Crushed with Puree Please contact the pharmacy regarding appropriate crushable or liquid drug formulations that are available whenever modified delivery is recommended. Compensatory Strategies and Precautions to be Taken for Safe Swallow: Sitting Upright (90 deg) Liquids from Straw Small Bites and Sips Rate of Ingestion Change Supervision While Eating and Drinking for Safe Swallow: Direct Supervision (1:1) Foods to Avoid: tough, difficult to chew solids. Swallowing Recommended Treatments: Compens. Strategy Educat. Recommendation for Speech: Inpatient Speech Therapy Comment: Attempted to see patient at breakfast this morning, however at time of visit patient had consumed meal, with primary c/o still hungry/not enough. PITCHING COACH then discussed toleration of diet, with patient stating that he was satisfied with meals and greater variety of meals; noting that he has enjoyed mac and cheese and some of the meats that come with his meals. Per NET PROGRAMMER, patient has also only needed help with tray set up, and he has been encouraged to eat independently, which he has been doing. Patient is tolerating current diet well, is currently on nasal cannula for 02 support, has been making improvements in his ability to eat independently. Recommend continue on Chopped Advanced (NDD3) Thin liquids, pills whole in puree. Frequency/Duration: Date Range for Service Req: Timeline to reassess: Cell Cleaner Clinican/Clinical Fellow: No Supervisory Statement: I have reviewed and agree with the student/clinical fellow's documentation: N/A Speech Language Pathologist: Betsy Snider M.A., CCC-PITCHING COACH
[2024-12-28 20:50] LABS: Glucose, Whole Blood 172 mg/dL (60-115)
[2024-12-29] VITALS (12 sets, daily range): BP systolic 98–120; BP diastolic 60–68; PULSE 58–86; RESP 18–24; TEMP 36.2–36.6; O2SAT 92–99
[2024-12-29 07:23] LABS: Hematocrit 40.0 % (42.0-52.0); Hemoglobin 12.0 g/dl (14.0-18.0); Mean Corpuscular HGB Conc 30.0 g/dl (31.0-36.0); Mean Corpuscular Hemoglobin 23.3 pg (27.0-33.0); Mean Corpuscular Volume 77.8 fL (80.0-98.0); NRBC Abs Auto 0.000 X10*3/uL (0.0-0.012); NRBC Pct Auto 0.0 /100WBC (0.0-0.2); Platelet Count 193 X10*3/uL (160-400); Red Blood Count 5.14 X10*6/uL (4.60-5.80); White Blood Count 5.5 X10*3/uL (4.8-10.8)
[2024-12-29 07:31] LABS: INTERNATIONAL NORM RATIO 2.9 (0.9-1.1); Prothrombin Time 32.8 SEC (10.9-12.4)
[2024-12-29 07:44] LABS: Anion Gap 9 (12-20); Blood Urea Nitrogen 19 mg/dL (9-16); Calcium 8.1 mg/dL (8.4-10.2); Carbon Dioxide 32 mmol/L (22-29); Chloride 105 mmol/L (96-108); Creatinine Clr Calc Pharmacy 140.8; Estimated Glomerular Filt Rate > 60; Potassium 3.5 mmol/L (3.3-5.1); Sodium 142 mmol/L (135-145)
[2024-12-29 07:46] LABS: Glucose, Whole Blood 189 mg/dL (60-115)
[2024-12-29 07:46] LABS: B Type Natriuretic Peptide 259 pg/mL (<100)
--- NOTE | 2024-12-29 09:29 | HO.WOUND ---
Wound Consult: Follow up 74 yr old male admitted to [facility] on 12[place]14/24- See progress notes and H&P for detailed history. Wound consult follow up for buttock and bilateral legs. Patient agreeable to assessment and photo documentation. Patient reports continued comfort with bed and setting maintained. He is in the Agility Pulsate bed - with setting to 5bars and 5 min intervals and reports increased comfort. He reports no pain or tenderness to his buttock. Today he continued to participate in turning and repositioning much more so than in the past with encouragement. Over all his buttock continued to be of unclear etiology. The tissue is improving overall. The red maroon light purple areas are blanching in some areas and over the coccyx remains free of PI. The tissue is not consistent with pressure injury alone and continues to improve and evolve. Wound edges continue to carolyn at this time, there appears to be a thin veil of yellow white to wound bed presume this is triad in use. Foam back in use and advised staff if stool trapping discontinue foam and use Triad alone. However Triad should be in place at all times. Inpatient wound care will continue to follow. 12/15/24 On admission 12/22/24 assessment 12/23/24 12/24/24 12/27/24 12/28/24 12/29/24 Todays assessment continues to evolve - Wound bed continues to improve and there are areas of improvement to the periwound, color pigmentation and wound beds themselves. The tissue loss seems to declared to deeper partial thickness tissue loss clean moist wound beds. There are maroon pigmented purple areas that are blanching which do not occur when pressure injury is involved. There is MASD noted as patient continued to be incontinent of urine and stool. Male purewick in use. Etiology remains unclear at this time will continue to assess and treat. Topical recommendations updates for traid alone as patient incontinence level has increased and the foam appears to be trapping moisture along the wound beds. Triad along was applied in addition to off loading pressure with Q 2 hr turns. Patient educated on importance of allowing care and turning and reposition and participating in movement. The patient is noted to have purple purpura like skin changes noted to various areas such as the right leg and right hip area not related to pressure injury. Given the high INR that remains this is likely a component of the skin pigmentation changes noted in addition or MASD- IAD. Bilateral Legs dressing not changed with this marketing copywriter no new topical recommendations made at this time. Recommendations: 1. Turn and Reposition every 2 hours and as needed for patient comfort. Use pillows or wedges to support off loading positions. 2. Off Load all bony prominences with use of pillows and heel boots if needed. Apply Preventative foams where needed. 3. Monitor for incontinence and moisture control, use barrier creams when needed for prevention and treatment. 4. Provide adequate and supplemental nutrition. 5. Order or Continue low air loss mattress. 6. When applicable maintain blood glucose levels per Providers order. Buttocks - Off Load Pressure with Q2 hr turns and use of pillows - Cleanse with PH balance spray or wipes, pat dry. ?Apply thin layer of Triad to wound bed - only pat and dab no scrub and rub when soiling occurs. Reapply thin layer PRN after each episode of incontinence. Bilateral Lower Legs - Cleanse with NS moist gauze, pat dry. Apply Ammonium lactate cream per provider orders. Cover open wound bed with xeroform, ABd pad and gauze wrap. Change Daily while inpatient. Contonue follow up outpt wound care at time of d/c. See prior assessments for details. Inpatient wound care jaycee continue to follow.
--- NOTE | 2024-12-29 09:29 | MHC.SL.SWA ---
Speech Pathologist Impression: Adequate coordination of oropharyngeal swallow Risk of Aspiration Due to: Deconditioning Respiratory status Dysphasia Diet Status: Upgrade to Regular solids and thin liquids, pills whole in puree. Liquid Consistency and Strategies for Safe Swallow: Liquid Intake Recommendation: Thin Liquid Intake Strategies: Small Sips Solid Food Consistency: Dietary Recommendations: Regular Additional Modifications to Solid Foods: . Oral Medication Intake: Whole with Puree Please contact the pharmacy regarding appropriate crushable or liquid drug formulations that are available whenever modified delivery is recommended. Compensatory Strategies and Precautions to be Taken for Safe Swallow: Sitting Upright (90 deg) Liquids from Straw Small Bites and Sips Rate of Ingestion Change Supervision While Eating and Drinking for Safe Swallow: Intermittent checks Foods to Avoid: tough, difficult to chew solids. Swallowing Recommended Treatments: Compens. Strategy Educat. Recommendation for Speech: Inpatient Speech Therapy Comment: Pt seen for re-evaluation as new order placed this morning. RN and grout machine tender consulted, noting pt was upset that pt was on modified diet d/t limited variety. Pt sitting upright in bed, finishing breakfast. Pt reported he was given thickened liquids. stating it changes the flavor . ACCELERATOR SYSTEMS DIRECTOR note from treatment 12/28 was reviewed, recc were to continue with NDD3 and thin liquids. Pt had repeat CXR 12/28, results indicated L basilar atelectasis vs PNA . Infrequent but chronic cough occurred in absence of PO, did not increase with PO trials of regular solids and thins. Oropharyngeal coordination WNL across phases of swallow. Pt sipped liquids by cup, preferring to use straw with oral supplement. Pt requested more ice chips. No overt s/s of aspiration observed during trials. ACCELERATOR SYSTEMS DIRECTOR provided education on physiological mechanism of swallow, airway protection, overt s/s of aspiration to be aware of, and safety precautions. Pt verbalized understanding and is in agreement with recc upgrade to regular and thin consistencies. MD and RN notified, order updated. Frequency/Duration: Date Range for Service Req: Timeline to reassess: Brand Sales Manager Clinican/Clinical Fellow: No Supervisory Statement: I have reviewed and agree with the student/clinical fellow's documentation: N/A Speech Language Pathologist: Rachel Sanders M.S., CCC-ACCELERATOR SYSTEMS DIRECTOR
[2024-12-29 11:28] LABS: Glucose, Whole Blood 247 mg/dL (60-115)
[2024-12-29] MEDS: Ammonium Lactate 12 % Cream 140 GM TUBE 1 APPL TOPICAL (11:35)
--- NOTE | 2024-12-29 11:36 | MHC.CLN ---
F/U PO INTAKE IMPROVED TO 75-100% DIET RX:DIET ADVANCED TO 2000DM RECEIVING ENSURE MAX BID TO PROMOTE WOUND HEALING SUPP PROVIDES 300KCALS, 60G PROTEIN WITH 100% ACCEPTANCE CONTINUE TO MONITOR PO INTAKE AND ENCOURAGE SUPPLEMENTS
--- NOTE | 2024-12-29 14:57 | MHC.CM.PN ---
CM met with pt and to discuss DCP and STR that have accepted, they chose [facility], CM sent message via Care port, anticipate DC by Fri.
--- NOTE | 2024-12-29 15:04 | P.PNIM_ITS ---
Subjective Subjective Date of Service: 12/29/24 Interval History: Patient seems to be doing much better today with no sob, and agree Review of Systems Review of Systems: Yes all other systems are reviewed and are negative Physical Exam 2 Vital Signs: Vital Signs: Last Vital Signs Temp 97.2 F 12/29/24 11:14 Pulse 86 12/29/24 13:32 Resp 20 12/29/24 11:14 BP 118/63 12/29/24 13:32 Pulse Ox 97 12/29/24 11:14 O2 Del Method Nasal Cannula 12/29/24 11:14 O2 Flow Rate 5 12/29/24 11:14 FiO2 40 12/28/24 23:50 Oxygen Flow Rate 4 12/14/24 10:24 BMI result Body Mass Index 31.1 Objective Data Active Medications Acetaminophen (Acetaminophen 325 Mg Tablet) 650 mg PO Q6H PRN PRN Reason: Pain, Mild 1-3,fever,headache Last Admin: 12/28/24 05:45 Dose: 650 mg Documented By: BHAVYA Aspirin (Aspirin 81 Mg Tab.Chew) 81 mg PO DAILY [facility] Last Admin: 12/29/24 08:03 Dose: 81 mg Documented By: DEE Atorvastatin Calcium (Atorvastatin Calcium 40 Mg Tablet) 40 mg PO BEDTIME JOY Last Admin: 12/28/24 22:02 Dose: 40 mg Documented By: BHAVYA Dextrose (Dextrose 50 % 25 Gm/50 Ml Syringe) 25 gm IVPUSH Q15M PRN; Protocol PRN Reason: per Hypoglycemia Standing Ord. Diltiazem HCl (Diltiazem Hcl 60 Mg Tablet) 60 mg PO QID [facility]; Protocol Last Admin: 12/29/24 13:35 Dose: 60 mg Documented By: PAULO Glucose (Glucose Gel 15 Gm Gel..Gram.) 15 gm PO Q15M PRN; Protocol PRN Reason: per Hypoglycemia Standing Ord. Diltiazem HCl 125 mg/ Sodium (Chloride) 125 mls @ 0 mls/hr IVCONT .Q0M [facility]; Protocol Last Titration: 12/23/24 15:41 Dose: 0 mg/hr, 0 mls/hr Documented By: OSVALDOCINIGHAT Piperacillin Sod/Tazobactam (Sod 4.5 gm/ Sodium Chloride) 100 mls @ 200 mls/hr IV Q6H [facility] Last Infusion: 12/29/24 12:04 Dose: Infused Documented By: PAULO Insulin Human Lispro (Insulin Lispro 100 Unit/Ml 3 Ml Vial) 0 unit SUBCUT QIDACHS [facility]; Protocol Last Admin: 12/29/24 11:35 Dose: 4 unit Documented By: DEE Lactic Acid (Ammonium Lactate 12 % Cream 140 Gm Tube) 1 appl TOPICAL DAILY PRN; Protocol PRN Reason: Dry Skin Last Admin: 12/29/24 11:35 Dose: 1 appl Documented By: DEE Metoprolol Tartrate (Metoprolol Tartrate 25 Mg Tablet) 25 mg PO QID [facility]; Protocol Last Admin: 12/29/24 13:38 Dose: 25 mg Documented By: PAULO Olanzapine (Olanzapine 10 Mg Vial) 5 mg IM DAILY PRN PRN Reason: Agitation Last Admin: 12/24/24 00:11 Dose: 5 mg Documented By: GENA Sodium Chloride (0.9 % Sodium Chloride Flush 3 Ml Syringe) 3 ml IVFLUSH QSHIFT [facility] Last Admin: 12/28/24 22:02 Dose: 3 ml Documented By: BHAVYA Warfarin Sodium (Warfarin Sodium 2.5 Mg Tablet) 2.5 mg PO TUTH@1800 JOY Last Admin: 12/28/24 18:14 Dose: 2.5 mg Documented By: SHANNAN Warfarin Sodium (Warfarin Sodium 5 Mg Tablet) 5 mg PO SUMOWEFRSA@1800 JOY Last Admin: 12/27/24 17:34 Dose: 5 mg Documented By: PAULO Labs 12/29/24 07:14 12/29/24 07:14 Labs: Laboratory Results - last 24 hr 12/28/24 12/28/24 12/29/24 15:59 20:45 07:14 MCV 77.8 L MCH 23.3 L MCHC 30.0 L RDW 19.0 H Plt Count 193 MPV 8.7 L Absolute Nucleated RBC 0.000 Nucleated RBC % (auto) 0.0 PT 32.8 H INR 2.9 H Anion Gap 9 L Estim Creat Clear Calc 140.8 Estimated GFR > 60 POC Glucose 216 H 172 H Random Glucose 196 H Calcium 8.1 L B-Natriuretic Peptide 259 H 12/29/24 12/29/24 07:32 11:19 MCV MCH MCHC RDW Plt Count MPV Absolute Nucleated RBC Nucleated RBC % (auto) PT INR Anion Gap Estim Creat Clear Calc Estimated GFR POC Glucose 189 H 247 H Random Glucose Calcium B-Natriuretic Peptide Assessment and Plan (1) Acute CHF: Status: Acute (2) CHF (congestive heart failure): Status: Acute (3) Atrial fibrillation: Status: Acute (4) Acute on chronic urinary retention: Status: Acute (5) Obstructive uropathy: Status: Acute (6) Acute hypercapnic respiratory failure: Status: Acute (7) Pneumonia: Status: Acute (8) Respiratory failure with hypoxia and hypercapnia: Status: Acute (9) Anasarca: Status: Acute Plan 74M PMH chronic diastolic CHF, diabetes, coronary disease status post stent, DVT/PE on warfarin, paroxysmal AFib, obesity, chronic lymphedema, presented 12/14/24 with dyspnea, admitted with acute multifactorial hypoxic respiratory failure in the setting of aspiration pneumonia, mixed chronic obstructive/restrictive pulmonary disease, CHF exacerbation & AFib RVR complicated by hypercapnic respiratory failure requiring BiPAP and MICU transfer 12/15/24, s/p treatment with BiPAP, IV diuretics, Precedex drip and downgraded 12/19. Intermittent Hypotension--BP has been fluctuating mentation is good, hold metoprolol if BP on lower side Hypoxia, 12/27 Chest x-ray showed some mild pulmonary vasculature congestion, with bibasilar opacifications which is consistent with atelectasis versus developing pneumonia. Patient remains on Zosyn as an antibiotic coverage for atypical organisms. CHF was deemed less likely. BiPAP to be used as needed for possible mucus pluging and atelectasis. Continuing following up with xray, cxr 12/28 improving pulmonary edema Acute metabolic encephalopathy MICU delerium Multifocal acute hypoxic and hypercapneic respiratory failure - Acute on chronic diastolic CHF - Obstructive and restrictive pulmonary disease - Aspiration pneumonia Presents with shortness of breath and fatigue, admitted with multifactorial acute hypoxic respiratory failure, developing hypercapnia. Etiology 2/2 acute on chronic CHF exacerbation in the setting of aspiration pneumonia. Patient's superimposed restrictive pulmonary disease 2/2 cervical kyphosis contributing to patient's hypercapnia and acute respiratory decompensation. Patient was diuresed in the medical ICU and required BiPAP and antibiotics. Patient now euvolemic, holding further diuretics, continue BiPAP at nighttime. Outpatient services recommending sleep study - likely [facility]. Gradual reintroduction of furosemide Continue pulmonary toilet & hygiene Delirium has resolved. Oxygen p.r.n. BiPAP nightly Dehydration Suffering with mild dehydration, with borderline sodium and elevated BUN. No evidence of ELMIRA. With hydration 1 L LR, the patient's heart rate has normalized further. Most recent labs as of 12/27 no evidence of dehydation Aspiration pneumonia On Zosyn since 12/21, transition to PO Augmentin ART DIRECTOR - ndd2 with thins Diabetes Insulin sliding scale POC QID AC Coronary artery disease Antiplatelet, statin DVT/PE Continue warfarin, monitor INR (2-3) Paroxysmal AFib with rvr Patient's heart rate has improved. RVR has resolved. Initially 2/2 hypoxia and hypercapnia, along with CHF exacerbation, currently back to clinical baseline. Has improved significantly after now hydration. Plan - continue beta-eal metoprolol 25 q 6, will change to bid - PO cardizem 60 mg q6, will change to long acting by the m - continue warfarin INR goal of 2-3 Chronic lymphedema Continue compression Obesity Has had recent successful weight loss QUALITY [employer] - VTE: Warfarin INR 2-3 - CODE STATUS: Full code - DIET: Aspiration precautions anticipate dc in 1 to 2 days, discussed with over the phone Total time managing care of this patient today: 45 minutes. Quality Stroke Does the patient have a stroke diagnosis?: No VTE Prior VTE?: Yes VTE Risk Level:: Medical - moderate - high VTE Device Contraindication: N/A - Device Ordered VTE Drug Contraindication: N/A - Med Ordered
[2024-12-29 15:49] LABS: Glucose, Whole Blood 208 mg/dL (60-115)
[2024-12-29] MEDS: 0.9 % Sodium Chloride Flush 3 ML SYRINGE IVFLUSH ×2 (16:53→20:13)
[2024-12-29 20:07] LABS: Glucose, Whole Blood 236 mg/dL (60-115)
[2024-12-30] VITALS (10 sets, daily range): BP systolic 100–133; BP diastolic 55–68; PULSE 65–92; RESP 18–19; TEMP 36.3–36.9; O2SAT 91–99
[2024-12-30 06:42] LABS: INTERNATIONAL NORM RATIO 2.2 (0.9-1.1); Prothrombin Time 25.6 SEC (10.9-12.4)
[2024-12-30 07:15] LABS: Glucose, Whole Blood 175 mg/dL (60-115)
[2024-12-30 11:22] LABS: Glucose, Whole Blood 176 mg/dL (60-115)
--- NOTE | 2024-12-30 12:50 | P.CONPL_ITS ---
History of Present Illness History of Present Illness Consult date: 12/30/24 Chief complaint: chf, Afib Narrative: This is an inpatient pulmonary consultation. The patient is a 72-year-old male with well-controlled insulin-dependent type 2 diabetes, GERD, coronary artery disease s/p PCI with SELENE in 11/2022 on DAPT, HFpEF, paroxysmal atrial fibrillation, history of bilateral lower extremity DVT anticoagulated with Coumadin, chronic venous stasis dermatitis presented to the ED earlier today from PCP office for evaluation of hypotension. Per the patient, he was seen at PCP office and blood pressure was 55/38 and was reporting confusion and lethargy. On arrival, Per ED provider, patient did have at least 2 episodes of hypotension though this is unfortunately not documented. He was given 2 L IV fluid with improvement in blood pressure to 96/57 on admission. He is tachycardic with heart rates ranging from 01/08-130s noted to be in atrial fibrillation. He does have leukocytosis of 16.5. He has a stable chronic microcytic anemia. INR 2.5, goal 2.0-3.0. Creatinine 2.20, baseline 0.90, BUN 63. Sodium 133, potassium 5.2, electrolytes otherwise within normal limits. Glucose 137. Total bilirubin 1.6, direct bilirubin 0.7. AST/ALT normal. Troponin below detectable limits. Urinalysis significant for 3+ leukocytes, negative nitrites, 2+ blood, positive urinary sediment, 3+ bacteria. Negative for influenza, COVID-19, RSV. CT chest, personally reviewed by me, showing chronic linear subsegmental atelectasis and scarring, unchanged from prior imaging. Also appears to have some esophageal content proximal esophagus bringing up the question of micro aspirations. In the ED, has received 2 L IV NS and 2 g IV ceftriaxone. Patient remains in AFib with RVR and will be given 2.5 mg IV metoprolol. Patient to be admitted for severe sepsis secondary to UTI with obstructive uropathy and atrial fibrillation with RVR. Review of Systems 2 Review of Systems: Yes all other systems are reviewed and are negative Constitutional: Constitutional: Reports as per HPI and Reports no additional constitutional complaints Eyes: Eyes: Reports as per HPI and Denies no additional eye complaints ENT: Denies system reviewed and no additional complaints, except as documented and Reports as per HPI Cardiovascular: Cardiovascular: Reports as per HPI, Reports no additional cardiovascular complaints, Denies acrocyanosis, Denies cool extremities, Denies chest pain, Denies leg edema, Denies lightheadedness, Denies palpitations and Denies dyspnea Respiratory: Respiratory: Reports as per HPI, Denies no additional respiratory complaints and Denies dyspnea Gastrointestinal: Gastrointestinal: Reports as per HPI and Denies no additional gastrointestinal complaints Genitourinary: Genitourinary: Reports no additional male genitourinary complaints and Reports as per HPI Musculoskeletal: Musculoskeletal: Reports no additional musculoskeletal complaints and Reports as per HPI Integumentary/Breasts: Skin/Breast: Reports system reviewed and no additional complaints, except as docu Neurologic: Reports system reviewed and no additional complaints, except as documented and Reports as per HPI Psychiatric: Psychiatric: Reports no additional psychiatric complaints and Reports as per HPI Endocrine: Endocrine: Reports no additional endocrine complaints, Reports as per HPI and Denies palpitations Hematologic/Lymphatic: Hematologic/Lymphatic: Reports no additional hematologic/lymphatic complaints and Reports as per HPI Allergic/Immunologic: Allergic/Immunologic: Reports no additional allergic/immunologic complaints and Reports as per HPI PMFSH Past Medical History Medical History (Updated 12/30/24 @ 13:00 by Lonnie Owens MD) Atelectasis of both lungs Chronic restrictive lung disease Atrial fibrillation Atrial fibrillation with RVR BPH (benign prostatic hyperplasia) Chronic venous stasis dermatitis GERD (gastroesophageal reflux disease) CAD (coronary artery disease) Type 2 diabetes mellitus (HFpEF) heart failure with preserved ejection fraction Family History Family History Father Kidney cancer, primary, with metastasis from kidney to other site Heart disease Surgical History Surgical History Hx of colonoscopy Status post percutaneous transluminal angioplasty ([employer]) with stent placement Social History Social History Household Members: Other Housing: House Are you a primary health care marketing manager to a significant other at home: No Do you presently have visiting nurse or other home services: Yes Alcohol intake: current Alcohol intake frequency: holidays/special occasions only Patient Tobacco Use Status: Never used Tobacco Second Hand Smoke Exposure: No Advance Directives Date on File: 02/13/23 service: No Meds Allergies Allergy/AdvReac Type Severity Reaction Status Date / Time peanut (PEANUTS) Allergy Intermediate Hives Verified 12/14/24 10:24 wool (WOOL) Allergy Unknown UNK Verified 12/14/24 10:24 Active Medications: Current Medications Acetaminophen (Acetaminophen 325 Mg Tablet) 650 mg PO Q6H PRN PRN Reason: Pain, Mild 1-3,fever,headache Last Admin: 12/28/24 05:45 Dose: 650 mg Aspirin (Aspirin 81 Mg Tab.Chew) 81 mg PO DAILY [facility] Last Admin: 12/30/24 08:43 Dose: 81 mg Atorvastatin Calcium (Atorvastatin Calcium 40 Mg Tablet) 40 mg PO BEDTIME [facility] Last Admin: 12/29/24 20:11 Dose: 40 mg Dextrose (Dextrose 50 % 25 Gm/50 Ml Syringe) 25 gm IVPUSH Q15M PRN; Protocol PRN Reason: per Hypoglycemia Standing Ord. Diltiazem HCl (Diltiazem Hcl 60 Mg Tablet) 60 mg PO QID [facility]; Protocol Last Admin: 12/30/24 12:02 Dose: 60 mg Glucose (Glucose Gel 15 Gm Gel..Gram.) 15 gm PO Q15M PRN; Protocol PRN Reason: per Hypoglycemia Standing Ord. Diltiazem HCl 125 mg/ Sodium (Chloride) 125 mls @ 0 mls/hr IVCONT .Q0M [facility]; Protocol Last Titration: 12/30/24 07:48 Dose: Infused Piperacillin Sod/Tazobactam (Sod 4.5 gm/ Sodium Chloride) 100 mls @ 200 mls/hr IV Q6H [facility] Last Infusion: 12/30/24 11:48 Dose: Infused Insulin Human Lispro (Insulin Lispro 100 Unit/Ml 3 Ml Vial) 0 unit SUBCUT QIDACHS [facility]; Protocol Last Admin: 12/30/24 11:21 Dose: 2 unit Lactic Acid (Ammonium Lactate 12 % Cream 140 Gm Tube) 1 appl TOPICAL DAILY PRN; Protocol PRN Reason: Dry Skin Last Admin: 12/29/24 11:35 Dose: 1 appl Metoprolol Tartrate (Metoprolol Tartrate 50 Mg Tablet) 50 mg PO BID [facility]; Protocol Last Admin: 12/30/24 08:43 Dose: 50 mg Olanzapine (Olanzapine 10 Mg Vial) 5 mg IM DAILY PRN PRN Reason: Agitation Last Admin: 12/24/24 00:11 Dose: 5 mg Sodium Chloride (0.9 % Sodium Chloride Flush 3 Ml Syringe) 3 ml IVFLUSH QSHIFT [facility] Last Admin: 12/30/24 11:53 Dose: Not Given Warfarin Sodium (Warfarin Sodium 5 Mg Tablet) 5 mg PO SUMOWEFRSA@1800 [facility] Last Admin: 12/29/24 18:08 Dose: 5 mg Warfarin Sodium (Warfarin Sodium 3 Mg Tablet) 3 mg PO TUTH@1800 [facility] Home Medications ?Medication ?Instructions ?Recorded ?Confirmed ?Last Taken ?Type atorvastatin 40 mg tablet 40 mg PO BEDTIME 09/03/2212/14/24 History dulaglutide 1.5 mg/0.5 mL 1.5 mg subcut TH@0912/14/24 12/09/24 History subcutaneous pen injector (Trulicity) folic acid 1 mg tablet 1 mg PO DAILY@1200 09/04/22 12/14/24 12/14/24 History insulin lispro 100 unit/mL See Rx Instructions .Route .COMPLEX 09/04/22 12/14/24 12/14/24 History subcutaneous solution (Humalog U-100 Insulin) flash glucose scanning reader #1 ea 01/06/23 03/09/24 Unknown History (FreeStyle Pat 2 [place]) flash glucose sensor (FreeStyle #1 ea 01/06/23 4 Unknown History Pat 2 Sensor kit) ammonium lactate 12 % topical cream 1 appl topical HEBER LY PRN Wound Care 02/12/23 12/14/24 Unknown History silver sulfadiazine 1 % topical 1 appl topical DAILY P braider tender 02/12/23 12/14/24 Unknown History cream sub-q insulin device, 20 unit 02/12/23 03/09/2403/24 History (V-GO 20 device) warfarin 5 mg tablet 5 mg PO SUMOWEFRSA@1800 01/2012/14/24 1 Day Ago History ~12/13/24 metformin 500 mg tablet,extended 500 mg PO BID 4 12/14/24 12/14/24 History release 24 hr diltiazem HCl 120 mg tablet 120 mg PO DAILY 03/23/24 0 12/14/24 12/14/24 History aspirin 81 mg tablet,delayed 81 mg PO DAILY 05/12/24 0 12/14/24 12/14/24 History release (Adult Aspirin Regimen) metoprolol tartrate 100 mg tablet 150 mg PO BID@0900,1 700 12/14/24 12/14/24 12/14/24 History warfarin 5 mg tablet 2.5 mg PO TUTH@1800 12/14/24 12/14/24 1 Day Ago History ~12/13/24 Physical Exam 2 Exam: Exam: General: A&O x3, oriented to time place person and situation, comfortable, no pain. Significant thoracocervical kyphosis. Cardiac: S1, S2 auscultated with no S3/4, no MRG. Well perfused. Respiratory: dimished breathsounds GI/ : No abdominal pain on palpation, no masses or distentions. MSK: Normal ambulation without pain at bony prominences or musculature. Lower extremities: Bilateral lower extremity swelling 2+ to the mid shins, with significant evidence of lipodermatosclerosis and dry skin. Neurological: Normal neurological examination on overview, without obvious CN II-XII abnormalities. Vital Signs: Vital Signs: Last Vital Signs Temp 97.9 F 12/30/24 11:06 Pulse 69 12/30/24 11:06 Resp 18 12/30/24 11:06 BP 120/59 L 12/30/24 11:06 Pulse Ox 94 12/30/24 11:06 O2 Del Method Nasal Cannula 12/30/24 11:06 O2 Flow Rate 5 12/30/24 11:06 FiO2 40 12/28/24 23:50 Oxygen Flow Rate 4 12/14/24 10:24 BMI result Body Mass Index 31.1 Results Laboratory Findings 12/29/24 07:14 12/29/24 07:14 ABG, PT/INR, D-dimer: PT/INR, D-dimer PT 25.6 SEC (10.9-12.4) H D 12/30/24 05:58 INR 2.2 (0.9-1.1) H 12/30/24 05:58 Abnormal lab findings: Abnormal Labs 12/14/24 12/14/24 12/14/24 13:18 16:13 20:12 RBC 5.90 H Hgb Hct MCV MCH 23.7 L MCHC 28.8 L RDW 19.6 H Plt Count MPV 9.2 L Immature Gran % (Auto) 0.5 H Neut % (Auto) 73.3 H Lymph % (Auto) 13.8 L [place] % (Auto) Eos % (Auto) Lymph # (Auto) 0.9 L [place] # (Auto) Abs Immat Gran (auto) Absolute Neuts (auto) PT 33.8 H D INR 2.9 H ABG pH at Pt Temp 7.33 L ABG pCO2 at Pt Temp 65 H* ABG pO2 at Pt Temp 70 L ABG HCO3 34 H VBG pH VBG HCO3 Sodium 146 H Chloride Carbon Dioxide 35 H Anion Gap 11 L BUN 30 H POC Glucose 148 H Random Glucose 147 H Calcium Phosphorus Total Bilirubin 1.2 H AST B-Natriuretic Peptide 545 H Albumin 3.3 L Digoxin < 0.2 L 12/15/24 12/15/24 12/15/24 06:17 07:50 12:42 RBC 5.82 H Hgb 13.7 L Hct MCV MCH 23.5 L MCHC 27.8 L RDW 19.7 H Plt Count MPV 9.3 L Immature Gran % (Auto) Neut % (Auto) Lymph % (Auto) [place] % (Auto) Eos % (Auto) Lymph # (Auto) [place] # (Auto) Abs Immat Gran (auto) Absolute Neuts (auto) PT 41.1 H D INR 3.6 H ABG pH at Pt Temp ABG pCO2 at Pt Temp ABG pO2 at Pt Temp ABG HCO3 VBG pH 7.27 L VBG HCO3 34 H Sodium Chloride Carbon Dioxide 30 H Anion Gap 11 L BUN 30 H POC Glucose 119 H Random Glucose 118 H Calcium Phosphorus Total Bilirubin AST B-Natriuretic Peptide Albumin Digoxin 12/15/24 12/15/24 12/15/24 13:42 16:52 17:18 RBC Hgb Hct MCV MCH MCHC RDW Plt Count MPV Immature Gran % (Auto) Neut % (Auto) Lymph % (Auto) [place] % (Auto) Eos % (Auto) Lymph # (Auto) [place] # (Auto) Abs Immat Gran (auto) Absolute Neuts (auto) PT INR ABG pH at Pt Temp ABG pCO2 at Pt Temp ABG pO2 at Pt Temp ABG HCO3 VBG pH VBG HCO3 Sodium Chloride Carbon Dioxide Anion Gap BUN POC Glucose 138 H 130 H Random Glucose Calcium Phosphorus 4.8 H Total Bilirubin AST B-Natriuretic Peptide Albumin Digoxin 12/15/24 12/15/2412/15/25 18:28 23:23 23:30 RBC Hgb Hct MCV MCH MCHC RDW Plt Count MPV Immature Gran % (Auto) Neut % (Auto) Lymph % (Auto) [place] % (Auto) Eos % (Auto) Lymph # (Auto) [place] # (Auto) Abs Immat Gran (auto) Absolute Neuts (auto) PT INR ABG pH at Pt Temp ABG pCO2 at Pt Temp ABG pO2 at Pt Temp ABG HCO3 VBG pH 7.27 L 7.31 L 7.31 L VBG HCO3 30 H 34 H 34 H Sodium Chloride Carbon Dioxide 32 H Anion Gap 11 L BUN 38 H POC Glucose Random Glucose Calcium 8.3 L Phosphorus Total Bilirubin AST B-Natriuretic Peptide Albumin 2.7 L Digoxin 12/16/24 12/16/24 12/16/24 05:57 06:10 12:23 RBC Hgb 12.1 L Hct 41.8 L MCV MCH 23.9 L MCHC 28.9 L RDW 18.8 H Plt Count MPV 9.3 L Immature Gran % (Auto) 0.5 H Neut % (Auto) 76.7 H Lymph % (Auto) 9.3 L [place] % (Auto) 12.5 H Eos % (Auto) Lymph # (Auto) 0.6 L [place] # (Auto) Abs Immat Gran (auto) Absolute Neuts (auto) PT 53.1 H D INR 4.6 H ABG pH at Pt Temp ABG pCO2 at Pt Temp ABG pO2 at Pt Temp ABG HCO3 VBG pH 7.29 L VBG HCO3 31 H 33 H Sodium Chloride Carbon Dioxide 30 H Anion Gap 11 L BUN 33 H POC Glucose Random Glucose Calcium Phosphorus 2.5 L Total Bilirubin AST B-Natriuretic Peptide Albumin 3.0 L Digoxin 12/16/24 12/16/24 12/17/24 13:32 19:39 02:17 RBC Hgb Hct MCV MCH MCHC RDW Plt Count MPV Immature Gran % (Auto) Neut % (Auto) Lymph % (Auto) [place] % (Auto) Eos % (Auto) Lymph # (Auto) [place] # (Auto) Abs Immat Gran (auto) Absolute Neuts (auto) PT INR ABG pH at Pt Temp ABG pCO2 at Pt Temp ABG pO2 at Pt Temp ABG HCO3 VBG pH VBG HCO3 Sodium Chloride Carbon Dioxide Anion Gap BUN POC Glucose 186 H 174 H 131 H Random Glucose Calcium Phosphorus Total Bilirubin AST B-Natriuretic Peptide Albumin Digoxin 12/17/24 12/17/24 12/17/24 04:22 07:01 12:15 RBC Hgb 12.4 L Hct 41.3 L MCV 79.7 L MCH 23.9 L MCHC 30.0 L RDW 18.7 H Plt Count MPV 9.3 L Immature Gran % (Auto) Neut % (Auto) 78.0 H Lymph % (Auto) 6.6 L [place] % (Auto) 13.8 H Eos % (Auto) Lymph # (Auto) 0.6 L [place] # (Auto) Abs Immat Gran (auto) Absolute Neuts (auto) PT 38.2 H D INR 3.3 H ABG pH at Pt Temp ABG pCO2 at Pt Temp ABG pO2 at Pt Temp ABG HCO3 VBG pH 7.29 L VBG HCO3 30 H Sodium Chloride 111 H Carbon Dioxide Anion Gap 10 L BUN 33 H POC Glucose 131 H Random Glucose 149 H Calcium Phosphorus 2.5 L Total Bilirubin AST B-Natriuretic Peptide Albumin Digoxin 12/17/24 12/17/24 12/17/24 14:04 17:24 18:21 RBC Hgb Hct MCV MCH MCHC RDW Plt Count MPV Immature Gran % (Auto) Neut % (Auto) Lymph % (Auto) [place] % (Auto) Eos % (Auto) Lymph # (Auto) [place] # (Auto) Abs Immat Gran (auto) Absolute Neuts (auto) PT INR ABG pH at Pt Temp ABG pCO2 at Pt Temp ABG pO2 at Pt Temp ABG HCO3 VBG pH VBG HCO3 Sodium Chloride 111 H Carbon Dioxide Anion Gap BUN 31 H POC Glucose 231 H 170 H Random Glucose 187 H Calcium Phosphorus Total Bilirubin AST B-Natriuretic Peptide Albumin Digoxin 12/17/24 12/18/24 12/18/24 20:15 10:21 10:24 RBC Hgb 12.8 L Hct MCV 78.6 L MCH 23.8 L MCHC 30.3 L RDW 19.2 H Plt Count 158 L MPV 8.9 L Immature Gran % (Auto) Neut % (Auto) 80.8 H Lymph % (Auto) 4.6 L [place] % (Auto) 13.2 H Eos % (Auto) Lymph # (Auto) 0.4 L [place] # (Auto) Abs Immat Gran (auto) Absolute Neuts (auto) PT 24.7 H D INR 2.2 H ABG pH at Pt Temp ABG pCO2 at Pt Temp ABG pO2 at Pt Temp ABG HCO3 VBG pH VBG HCO3 20 L Sodium Chloride 114 H Carbon Dioxide 20 L Anion Gap BUN 29 H POC Glucose 166 H Random Glucose 171 H Calcium Phosphorus Total Bilirubin AST B-Natriuretic Peptide Albumin Digoxin 12/18/24 12/18/24 12/18/24 16:19 18:07 21:03 RBC Hgb Hct MCV MCH MCHC RDW Plt Count MPV Immature Gran % (Auto) Neut % (Auto) Lymph % (Auto) [place] % (Auto) Eos % (Auto) Lymph # (Auto) [place] # (Auto) Abs Immat Gran (auto) Absolute Neuts (auto) PT INR ABG pH at Pt Temp ABG pCO2 at Pt Temp ABG pO2 at Pt Temp ABG HCO3 VBG pH VBG HCO3 Sodium Chloride 114 H Carbon Dioxide Anion Gap 11 L BUN 31 H POC Glucose 191 H 209 H Random Glucose 225 H Calcium Phosphorus Total Bilirubin AST B-Natriuretic Peptide Albumin Digoxin 12/19/24 12/19/24 12/19/24 05:07 05:09 07:27 RBC Hgb 13.6 L Hct MCV MCH 24.0 L MCHC 29.8 L RDW 19.8 H Plt Count 154 L MPV 9.1 L Immature Gran % (Auto) Neut % (Auto) 74.4 H Lymph % (Auto) 9.0 L [place] % (Auto) 14.3 H Eos % (Auto) Lymph # (Auto) 0.7 L [place] # (Auto) Abs Immat Gran (auto) Absolute Neuts (auto) PT 25.4 H INR 2.2 H ABG pH at Pt Temp ABG pCO2 at Pt Temp ABG pO2 at Pt Temp ABG HCO3 VBG pH VBG HCO3 20 L Sodium Chloride 114 H Carbon Dioxide Anion Gap 11 L BUN 38 H POC Glucose 180 H Random Glucose 187 H Calcium Phosphorus Total Bilirubin AST B-Natriuretic Peptide Albumin 3.1 L Digoxin 12/19/24 12/19/24 12/19/24 11:22 16:07 17:40 RBC Hgb Hct MCV MCH MCHC RDW Plt Count MPV Immature Gran % (Auto) Neut % (Auto) Lymph % (Auto) [place] % (Auto) Eos % (Auto) Lymph # (Auto) [place] # (Auto) Abs Immat Gran (auto) Absolute Neuts (auto) PT INR ABG pH at Pt Temp ABG pCO2 at Pt Temp ABG pO2 at Pt Temp ABG HCO3 VBG pH VBG HCO3 Sodium 147 H Chloride 109 H Carbon Dioxide Anion Gap BUN 43 H POC Glucose 229 H 152 H Random Glucose Calcium Phosphorus Total Bilirubin AST B-Natriuretic Peptide Albumin Digoxin 12/19/24 12/20/24 12/20/24 20:49 06:58 07:34 RBC 6.09 H Hgb Hct MCV 78.8 L MCH 23.6 L MCHC 30.0 L RDW 20.2 H Plt Count MPV 9.0 L Immature Gran % (Auto) 0.5 H Neut % (Auto) 83.3 H Lymph % (Auto) 4.0 L [place] % (Auto) 11.8 H Eos % (Auto) Lymph # (Auto) 0.4 L [place] # (Auto) Abs Immat Gran (auto) 0.05 H Absolute Neuts (auto) 8.6 H PT 23.4 H INR 2.0 H ABG pH at Pt Temp ABG pCO2 at Pt Temp ABG pO2 at Pt Temp ABG HCO3 VBG pH VBG HCO3 Sodium Chloride 112 H Carbon Dioxide Anion Gap BUN 42 H POC Glucose 188 H 187 H Random Glucose 193 H Calcium Phosphorus Total Bilirubin AST B-Natriuretic Peptide Albumin Digoxin 12/20/24 12/20/24 12/20/24 11:16 16:01 16:22 RBC Hgb Hct MCV MCH MCHC RDW Plt Count MPV Immature Gran % (Auto) Neut % (Auto) Lymph % (Auto) [place] % (Auto) Eos % (Auto) Lymph # (Auto) [place] # (Auto) Abs Immat Gran (auto) Absolute Neuts (auto) PT INR ABG pH at Pt Temp ABG pCO2 at Pt Temp ABG pO2 at Pt Temp ABG HCO3 VBG pH VBG HCO3 Sodium Chloride 111 H Carbon Dioxide 21 L Anion Gap BUN 45 H POC Glucose 239 H 221 H Random Glucose 219 H Calcium Phosphorus Total Bilirubin AST B-Natriuretic Peptide Albumin Digoxin 12/20/24 12/21/24 12/21/24 20:40 06:33 07:20 RBC 6.34 H Hgb Hct MCV 77.9 L MCH 23.7 L MCHC 30.4 L RDW 20.0 H Plt Count MPV 9.3 L Immature Gran % (Auto) 0.5 H Neut % (Auto) 82.8 H Lymph % (Auto) 4.5 L [place] % (Auto) 11.7 H Eos % (Auto) Lymph # (Auto) 0.5 L [place] # (Auto) 1.3 H Abs Immat Gran (auto) 0.05 H Absolute Neuts (auto) 9.0 H PT 29.2 H D INR 2.5 H ABG pH at Pt Temp ABG pCO2 at Pt Temp ABG pO2 at Pt Temp ABG HCO3 VBG pH VBG HCO3 Sodium Chloride 110 H Carbon Dioxide Anion Gap BUN 46 H POC Glucose 260 H 205 H Random Glucose 209 H Calcium Phosphorus Total Bilirubin AST B-Natriuretic Peptide 484 H Albumin Digoxin 12/21/24 12/21/24 12/21/24 09:24 11:12 12:51 RBC Hgb Hct MCV MCH MCHC RDW Plt Count MPV Immature Gran % (Auto) Neut % (Auto) Lymph % (Auto) [place] % (Auto) Eos % (Auto) Lymph # (Auto) [place] # (Auto) Abs Immat Gran (auto) Absolute Neuts (auto) PT INR ABG pH at Pt Temp 7.22 L 7.34 L ABG pCO2 at Pt Temp 63 H* ABG pO2 at Pt Temp 70 L ABG HCO3 VBG pH VBG HCO3 Sodium Chloride Carbon Dioxide Anion Gap BUN POC Glucose 181 H Random Glucose Calcium Phosphorus Total Bilirubin AST B-Natriuretic Peptide Albumin Digoxin 12/21/24 12/21/24 12/21/24 16:22 18:33 18:50 RBC Hgb Hct MCV MCH MCHC RDW Plt Count MPV Immature Gran % (Auto) Neut % (Auto) Lymph % (Auto) [place] % (Auto) Eos % (Auto) Lymph # (Auto) [place] # (Auto) Abs Immat Gran (auto) Absolute Neuts (auto) PT INR ABG pH at Pt Temp ABG pCO2 at Pt Temp ABG pO2 at Pt Temp ABG HCO3 VBG pH 7.27 L VBG HCO3 Sodium Chloride 109 H Carbon Dioxide Anion Gap BUN 56 H POC Glucose 175 H Random Glucose 270 H Calcium Phosphorus Total Bilirubin AST B-Natriuretic Peptide Albumin Digoxin 12/21/24 12/21/24 12/22/24 20:51 22:51 07:04 RBC Hgb Hct MCV MCH MCHC RDW Plt Count MPV Immature Gran % (Auto) Neut % (Auto) Lymph % (Auto) [place] % (Auto) Eos % (Auto) Lymph # (Auto) [place] # (Auto) Abs Immat Gran (auto) Absolute Neuts (auto) PT INR ABG pH at Pt Temp 7.30 L ABG pCO2 at Pt Temp 54 H ABG pO2 at Pt Temp 48 L* ABG HCO3 27 H VBG pH VBG HCO3 Sodium Chloride Carbon Dioxide Anion Gap BUN POC Glucose 237 H 198 H Random Glucose Calcium Phosphorus Total Bilirubin AST B-Natriuretic Peptide Albumin Digoxin 12/22/24 12/22/24 12/22/24 07:44 11:01 15:56 RBC Hgb 13.7 L Hct MCV 77.7 L MCH 23.7 L MCHC 30.5 L RDW 19.7 H Plt Count MPV Immature Gran % (Auto) Neut % (Auto) 83.9 H Lymph % (Auto) 5.4 L [place] % (Auto) Eos % (Auto) Lymph # (Auto) 0.5 L [place] # (Auto) Abs Immat Gran (auto) Absolute Neuts (auto) PT 47.9 H D INR 4.2 H ABG pH at Pt Temp ABG pCO2 at Pt Temp ABG pO2 at Pt Temp ABG HCO3 VBG pH VBG HCO3 Sodium Chloride 114 H Carbon Dioxide Anion Gap 11 L BUN 62 H POC Glucose 284 H 239 H Random Glucose 219 H Calcium Phosphorus Total Bilirubin AST B-Natriuretic Peptide Albumin Digoxin 12/22/24 12/22/24 12/23/24 17:59 19:47 06:21 RBC Hgb Hct MCV MCH MCHC RDW Plt Count MPV Immature Gran % (Auto) Neut % (Auto) Lymph % (Auto) [place] % (Auto) Eos % (Auto) Lymph # (Auto) [place] # (Auto) Abs Immat Gran (auto) Absolute Neuts (auto) PT 43.5 H INR 3.8 H ABG pH at Pt Temp ABG pCO2 at Pt Temp ABG pO2 at Pt Temp ABG HCO3 VBG pH VBG HCO3 Sodium Chloride 111 H Carbon Dioxide Anion Gap 9 L BUN 58 H POC Glucose 204 H Random Glucose 246 H Calcium Phosphorus Total Bilirubin AST B-Natriuretic Peptide Albumin Digoxin 12/23/24 12/23/24 12/23/24 07:09 10:27 11:32 RBC Hgb 12.9 L Hct MCV 78.6 L MCH 23.4 L MCHC 29.7 L RDW 19.4 H Plt Count MPV 9.3 L Immature Gran % (Auto) Neut % (Auto) Lymph % (Auto) [place] % (Auto) Eos % (Auto) Lymph # (Auto) [place] # (Auto) Abs Immat Gran (auto) Absolute Neuts (auto) PT INR ABG pH at Pt Temp ABG pCO2 at Pt Temp ABG pO2 at Pt Temp ABG HCO3 VBG pH VBG HCO3 Sodium Chloride 111 H Carbon Dioxide Anion Gap 10 L BUN 53 H POC Glucose 210 H 222 H Random Glucose 272 H Calcium Phosphorus Total Bilirubin 1.1 H AST 68 H B-Natriuretic Peptide Albumin 2.8 L Digoxin 12/23/24 12/23/24 12/24/24 15:38 20:58 06:14 RBC Hgb 12.9 L Hct MCV 78.1 L MCH 23.6 L MCHC 30.2 L RDW 19.3 H Plt Count MPV 9.2 L Immature Gran % (Auto) Neut % (Auto) Lymph % (Auto) 11.3 L [place] % (Auto) 11.9 H Eos % (Auto) Lymph # (Auto) 0.8 L [place] # (Auto) Abs Immat Gran (auto) Absolute Neuts (auto) PT 36.6 H INR 3.2 H ABG pH at Pt Temp ABG pCO2 at Pt Temp ABG pO2 at Pt Temp ABG HCO3 VBG pH VBG HCO3 Sodium Chloride 111 H Carbon Dioxide Anion Gap 10 L BUN 32 H POC Glucose 207 H 174 H Random Glucose 174 H Calcium Phosphorus Total Bilirubin AST B-Natriuretic Peptide Albumin Digoxin 12/24/24 12/24/24 12/24/24 07:04 11:14 16:09 RBC Hgb Hct MCV MCH MCHC RDW Plt Count MPV Immature Gran % (Auto) Neut % (Auto) Lymph % (Auto) [place] % (Auto) Eos % (Auto) Lymph # (Auto) [place] # (Auto) Abs Immat Gran (auto) Absolute Neuts (auto) PT INR ABG pH at Pt Temp ABG pCO2 at Pt Temp ABG pO2 at Pt Temp ABG HCO3 VBG pH VBG HCO3 Sodium Chloride Carbon Dioxide Anion Gap BUN POC Glucose 154 H 222 H 204 H Random Glucose Calcium Phosphorus Total Bilirubin AST B-Natriuretic Peptide Albumin Digoxin 12/24/24 12/25/24 12/25/24 20:16 06:22 06:57 RBC Hgb 12.7 L Hct MCV 79.4 L MCH 23.4 L MCHC 29.5 L RDW 19.5 H Plt Count MPV 8.7 L Immature Gran % (Auto) Neut % (Auto) Lymph % (Auto) 13.4 L [place] % (Auto) 11.8 H Eos % (Auto) 5.5 H Lymph # (Auto) 0.8 L [place] # (Auto) Abs Immat Gran (auto) Absolute Neuts (auto) PT 27.9 H D INR 2.4 H ABG pH at Pt Temp ABG pCO2 at Pt Temp ABG pO2 at Pt Temp ABG HCO3 VBG pH VBG HCO3 Sodium Chloride 111 H Carbon Dioxide Anion Gap 10 L BUN 24 H POC Glucose 223 H 176 H Random Glucose 166 H Calcium Phosphorus Total Bilirubin AST B-Natriuretic Peptide Albumin Digoxin 12/25/24 12/25/24 12/25/24 10:46 16:26 21:01 RBC Hgb Hct MCV MCH MCHC RDW Plt Count MPV Immature Gran % (Auto) Neut % (Auto) Lymph % (Auto) [place] % (Auto) Eos % (Auto) Lymph # (Auto) [place] # (Auto) Abs Immat Gran (auto) Absolute Neuts (auto) PT INR ABG pH at Pt Temp ABG pCO2 at Pt Temp ABG pO2 at Pt Temp ABG HCO3 VBG pH VBG HCO3 Sodium Chloride Carbon Dioxide Anion Gap BUN POC Glucose 247 H 182 H 281 H Random Glucose Calcium Phosphorus Total Bilirubin AST B-Natriuretic Peptide Albumin Digoxin 12/26/24 12/26/24 12/26/24 07:05 07:52 11:29 RBC Hgb 13.1 L Hct MCV 79.4 L MCH 23.5 L MCHC 29.6 L RDW 19.2 H Plt Count MPV 9.2 L Immature Gran % (Auto) 0.6 H Neut % (Auto) Lymph % (Auto) 14.6 L [place] % (Auto) Eos % (Auto) 6.5 H Lymph # (Auto) 0.8 L [place] # (Auto) Abs Immat Gran (auto) Absolute Neuts (auto) PT 27.4 H INR 2.4 H ABG pH at Pt Temp ABG pCO2 at Pt Temp ABG pO2 at Pt Temp ABG HCO3 VBG pH VBG HCO3 Sodium Chloride 109 H Carbon Dioxide Anion Gap 10 L BUN 21 H POC Glucose 202 H 204 H Random Glucose 184 H Calcium Phosphorus Total Bilirubin AST B-Natriuretic Peptide Albumin Digoxin 12/26/24 12/27/24 12/27/24 20:02 07:22 07:38 RBC Hgb 12.4 L Hct MCV MCH 23.6 L MCHC 28.7 L RDW 19.5 H Plt Count MPV 9.3 L Immature Gran % (Auto) Neut % (Auto) 77.3 H Lymph % (Auto) 9.8 L [place] % (Auto) Eos % (Auto) Lymph # (Auto) 0.7 L [place] # (Auto) Abs Immat Gran (auto) Absolute Neuts (auto) PT 32.8 H INR 2.9 H ABG pH at Pt Temp ABG pCO2 at Pt Temp ABG pO2 at Pt Temp ABG HCO3 VBG pH VBG HCO3 Sodium Chloride Carbon Dioxide 31 H Anion Gap 9 L BUN 20 H POC Glucose 183 H 164 H Random Glucose 165 H Calcium Phosphorus Total Bilirubin AST B-Natriuretic Peptide Albumin Digoxin 12/27/24 12/27/24 12/27/24 11:35 15:56 19:59 RBC Hgb Hct MCV MCH MCHC RDW Plt Count MPV Immature Gran % (Auto) Neut % (Auto) Lymph % (Auto) [place] % (Auto) Eos % (Auto) Lymph # (Auto) [place] # (Auto) Abs Immat Gran (auto) Absolute Neuts (auto) PT INR ABG pH at Pt Temp ABG pCO2 at Pt Temp ABG pO2 at Pt Temp ABG HCO3 VBG pH VBG HCO3 Sodium Chloride Carbon Dioxide Anion Gap BUN POC Glucose 297 H 192 H 230 H Random Glucose Calcium Phosphorus Total Bilirubin AST B-Natriuretic Peptide Albumin Digoxin 12/27/24 12/28/24 12/28/24 23:02 07:27 07:38 RBC Hgb Hct MCV MCH MCHC RDW Plt Count MPV Immature Gran % (Auto) Neut % (Auto) Lymph % (Auto) [place] % (Auto) Eos % (Auto) Lymph # (Auto) [place] # (Auto) Abs Immat Gran (auto) Absolute Neuts (auto) PT 34.7 H INR 3.0 H ABG pH at Pt Temp ABG pCO2 at Pt Temp ABG pO2 at Pt Temp ABG HCO3 VBG pH VBG HCO3 Sodium Chloride Carbon Dioxide Anion Gap BUN POC Glucose 184 H 175 H Random Glucose Calcium Phosphorus Total Bilirubin AST B-Natriuretic Peptide Albumin Digoxin 12/28/24 12/28/24 12/28/24 11:32 15:59 20:45 RBC Hgb Hct MCV MCH MCHC RDW Plt Count MPV Immature Gran % (Auto) Neut % (Auto) Lymph % (Auto) [place] % (Auto) Eos % (Auto) Lymph # (Auto) [place] # (Auto) Abs Immat Gran (auto) Absolute Neuts (auto) PT INR ABG pH at Pt Temp ABG pCO2 at Pt Temp ABG pO2 at Pt Temp ABG HCO3 VBG pH VBG HCO3 Sodium Chloride Carbon Dioxide Anion Gap BUN POC Glucose 221 H 216 H 172 H Random Glucose Calcium Phosphorus Total Bilirubin AST B-Natriuretic Peptide Albumin Digoxin 12/29/24 12/29/24 12/29/24 07:14 07:32 11:19 RBC Hgb 12.0 L Hct 40.0 L MCV 77.8 L MCH 23.3 L MCHC 30.0 L RDW 19.0 H Plt Count MPV 8.7 L Immature Gran % (Auto) Neut % (Auto) Lymph % (Auto) [place] % (Auto) Eos % (Auto) Lymph # (Auto) [place] # (Auto) Abs Immat Gran (auto) Absolute Neuts (auto) PT 32.8 H INR 2.9 H ABG pH at Pt Temp ABG pCO2 at Pt Temp ABG pO2 at Pt Temp ABG HCO3 VBG pH VBG HCO3 Sodium Chloride Carbon Dioxide 32 H Anion Gap 9 L BUN 19 H POC Glucose 189 H 247 H Random Glucose 196 H Calcium 8.1 L Phosphorus Total Bilirubin AST B-Natriuretic Peptide 259 H Albumin Digoxin 12/29/24 12/29/24 12/30/24 15:44 20:04 05:58 RBC Hgb Hct MCV MCH MCHC RDW Plt Count MPV Immature Gran % (Auto) Neut % (Auto) Lymph % (Auto) [place] % (Auto) Eos % (Auto) Lymph # (Auto) [place] # (Auto) Abs Immat Gran (auto) Absolute Neuts (auto) PT 25.6 H D INR 2.2 H ABG pH at Pt Temp ABG pCO2 at Pt Temp ABG pO2 at Pt Temp ABG HCO3 VBG pH VBG HCO3 Sodium Chloride Carbon Dioxide Anion Gap BUN POC Glucose 208 H 236 H Random Glucose Calcium Phosphorus Total Bilirubin AST B-Natriuretic Peptide Albumin Digoxin 12/30/24 12/30/24 07:04 11:08 RBC Hgb Hct MCV MCH MCHC RDW Plt Count MPV Immature Gran % (Auto) Neut % (Auto) Lymph % (Auto) [place] % (Auto) Eos % (Auto) Lymph # (Auto) [place] # (Auto) Abs Immat Gran (auto) Absolute Neuts (auto) PT INR ABG pH at Pt Temp ABG pCO2 at Pt Temp ABG pO2 at Pt Temp ABG HCO3 VBG pH VBG HCO3 Sodium Chloride Carbon Dioxide Anion Gap BUN POC Glucose 175 H 176 H Random Glucose Calcium Phosphorus Total Bilirubin AST B-Natriuretic Peptide Albumin Digoxin Microbiology: Microbiology 12/15/24 14:03 Blood - Venous Blood Culture - Final No growth after 5 days. 12/15/24 14:05 Blood - Venous Blood Culture - Final No growth after 5 days. Assessment and Plan (1) KIRILL (obstructive sleep apnea): Status: Acute (2) Chronic restrictive lung disease: Status: Acute (3) Atelectasis of both lungs: Status: Acute (4) Atrial fibrillation: Qualifiers: Atrial fibrillation type: unspecified Qualified Code(s): I48.91 - Unspecified atrial fibrillation Status: Acute (5) CHF (congestive heart failure): Qualifiers: Heart failure chronicity: unspecified Status: Acute (6) Acute hypercapnic respiratory failure: Status: Acute Plan The patient has been developing acute hypercarbic/hypoxic respiratory failure. The patient appears to have a limited reserve secondary to likely chronic restrictive lung disease. He has significant atelectasis/rounded atelectasis consolidations of bilateral basis. This is a chronic issue since he has had similar findings on previous CAT scans. One suspicion is micro aspirations into the lungs and therefore will assess the barium swallow to see if this is an issue. Dear the likelihood is that the patient may developed acute onset respiratory failure from flash pulmonary edema from his heart failure in view of his decreased pulmonary capacity. The patient may have a component of sleep apnea that further needs to be address and he is scheduled to undergo sleep study as an outpatient which is reassuring. Because of his limited pulmonary reserve he needs should be very careful with any medications that can suppress his respiratory drive that can result in acute respiratory failure. In addition to that minimizing pulmonary vascular congestion that can ultimately lead to acute decompensated heart failure and respiratory failure as well. The patient should have additional outpatient Pulmonary studies including pulmonary function studies to further address the restrictive component to his breathing. Further evaluation for the significant atelectasis of the bases of the lungs would also be helpful. In the meantime aggressive incentive spirometer and fit pulmonary rehabilitation will be great options. Recommendations: Outpatient in-lab sleep study. I believe this is already scheduled Barium swallow to assess for microaspiration specially with the debris in the esophagus noted on the CAT scan Deep breathing exercises with incentive spirometer and would encourage in inpatient pulmonary rehabilitation or outpatient pulmonary rehabilitation if able Monitor for any medications that can suppress her respiratory drive and I would avoid any of those medications Cardioprotective medications as per Cardiology Diuresis as tolerated Should warranted additional pulmonary evaluation as an outpatient Procedures Date of Service Date of Service: 12/30/24
--- NOTE | 2024-12-30 13:50 | MHC.SL.SWA ---
Speech Pathologist Impression: Risk of Aspiration Due to: Dysphasia Diet Status: Continue on diet of REGULAR with THIN liquids, Pills whole in puree. Liquid Consistency and Strategies for Safe Swallow: Liquid Intake Recommendation: Thin Liquid Intake Strategies: Small Sips Solid Food Consistency: Dietary Recommendations: Regular Additional Modifications to Solid Foods: Oral Medication Intake: Whole with Puree Please contact the pharmacy regarding appropriate crushable or liquid drug formulations that are available whenever modified delivery is recommended. Compensatory Strategies and Precautions to be Taken for Safe Swallow: Sitting Upright (90 deg) Liquids from Straw Small Bites and Sips Rate of Ingestion Change Supervision While Eating and Drinking for Safe Swallow: Intermittent Supervision Foods to Avoid: tough, difficult to chew solids. Swallowing Recommended Treatments: Compens. Strategy Educat. Recommendation for Speech: Inpatient Speech Therapy Comment: Patient seen at lunch today. Patient was upgraded yesterday to regular diet and continued on this liquids. At time of visit he had eaten most of his meal and was consuming a bag of potato chips. Patient is now on nasal cannula only for 02, appeared cheerful, but mildly annoyed at times. Patient reported that he had been brought to radiology for MBS this morning, however it was not done because his bed, which he was brought in did not fit. Patient further agitated that he has not received medical explanation for his respiratory issues, and reported that he was seen today by a exchange administrator to hopefully get some more information. Patient notably does not remember much of his stay, which has been prolonged, particularly the period he was in ICU. With regard to his swallowing, patient was happily eating chips during this conversation, with no clinical signs of aspiration. He has been managing well on least restrictive diet of REGULAR with THIN liquids, Pills whole in puree. GRAIN CLEANER AND TRANSFER OPERATOR will f/u X1 before discharge. Frequency/Duration: Date Range for Service Req: Timeline to reassess: Refractory Tile Helper Clinican/Clinical Fellow: No Supervisory Statement: I have reviewed and agree with the student/clinical fellow's documentation: N/A Speech Language Pathologist: Betsy Snider M.A., [facility]-GRAIN CLEANER AND TRANSFER OPERATOR
--- NOTE | 2024-12-30 15:28 | P.PNIM_ITS ---
Subjective Subjective Date of Service: 12/30/24 Interval History: Has no sob, hemodynamically stable. Review of Systems Review of Systems: Yes all other systems are reviewed and are negative Physical Exam 2 Vital Signs: Vital Signs: Last Vital Signs Temp 97.9 F 12/30/24 11:06 Pulse 69 12/30/24 11:06 Resp 18 12/30/24 11:06 BP 120/59 L 12/30/24 11:06 Pulse Ox 94 12/30/24 11:06 O2 Del Method Nasal Cannula 12/30/24 11:06 O2 Flow Rate 5 12/30/24 11:06 FiO2 40 12/28/24 23:50 Oxygen Flow Rate 4 12/14/24 10:24 BMI result Body Mass Index 31.1 Objective Data Active Medications Acetaminophen (Acetaminophen 325 Mg Tablet) 650 mg PO Q6H PRN PRN Reason: Pain, Mild 1-3,fever,headache Last Admin: 12/28/24 05:45 Dose: 650 mg Documented By: BHAVYA Aspirin (Aspirin 81 Mg Tab.Chew) 81 mg PO DAILY [facility] Last Admin: 12/30/24 08:43 Dose: 81 mg Documented By: PATRICIA Atorvastatin Calcium (Atorvastatin Calcium 40 Mg Tablet) 40 mg PO BEDTIME JOY Last Admin: 12/29/24 20:11 Dose: 40 mg Documented By: VERONIKA Dextrose (Dextrose 50 % 25 Gm/50 Ml Syringe) 25 gm IVPUSH Q15M PRN; Protocol PRN Reason: per Hypoglycemia Standing Ord. Diltiazem HCl (Diltiazem Hcl 60 Mg Tablet) 60 mg PO QID [facility]; Protocol Last Admin: 12/30/24 12:02 Dose: 60 mg Documented By: PATRICIA Glucose (Glucose Gel 15 Gm Gel..Gram.) 15 gm PO Q15M PRN; Protocol PRN Reason: per Hypoglycemia Standing Ord. Diltiazem HCl 125 mg/ Sodium (Chloride) 125 mls @ 0 mls/hr IVCONT .Q0M JOY; Protocol Last Titration: 12/30/24 07:48 Dose: Infused Documented By: PATRICIA Piperacillin Sod/Tazobactam (Sod 4.5 gm/ Sodium Chloride) 100 mls @ 200 mls/hr IV Q6H [facility] Last Infusion: 12/30/24 11:48 Dose: Infused Documented By: PATRICIA Insulin Human Lispro (Insulin Lispro 100 Unit/Ml 3 Ml Vial) 0 unit SUBCUT QIDACHS [facility]; Protocol Last Admin: 12/30/24 11:21 Dose: 2 unit Documented By: PATRICIA Lactic Acid (Ammonium Lactate 12 % Cream 140 Gm Tube) 1 appl TOPICAL DAILY PRN; Protocol PRN Reason: Dry Skin Last Admin: 12/29/24 11:35 Dose: 1 appl Documented By: DEE Metoprolol Tartrate (Metoprolol Tartrate 50 Mg Tablet) 50 mg PO BID [facility]; Protocol Last Admin: 12/30/24 08:43 Dose: 50 mg Documented By: PATRICIA Olanzapine (Olanzapine 10 Mg Vial) 5 mg IM DAILY PRN PRN Reason: Agitation Last Admin: 12/24/24 00:11 Dose: 5 mg Documented By: GENA Sodium Chloride (0.9 % Sodium Chloride Flush 3 Ml Syringe) 3 ml IVFLUSH QSHIFT [facility] Last Admin: 12/30/24 11:53 Dose: Not Given Documented By: PATRICIA Non-Admin Reason: Previously Administered Warfarin Sodium (Warfarin Sodium 5 Mg Tablet) 5 mg PO SUMOWEFRSA@1800 [facility] Last Admin: 12/29/24 18:08 Dose: 5 mg Documented By: DEE Warfarin Sodium (Warfarin Sodium 3 Mg Tablet) 3 mg PO TUTH@1800 [facility] Labs 12/29/24 07:14 12/29/24 07:14 Labs: Laboratory Results - last 24 hr 12/29/24 12/29/24 12/30/24 15:44 20:04 05:58 PT 25.6 H D INR 2.2 H POC Glucose 208 H 236 H 12/30/24 12/30/24 07:04 11:08 PT INR POC Glucose 175 H 176 H Assessment and Plan (1) Acute CHF: Status: Acute (2) CHF (congestive heart failure): Status: Acute (3) Atrial fibrillation: Status: Acute (4) Acute on chronic urinary retention: Status: Acute (5) Obstructive uropathy: Status: Acute (6) Acute hypercapnic respiratory failure: Status: Acute (7) Pneumonia: Status: Acute (8) Respiratory failure with hypoxia and hypercapnia: Status: Acute (9) Anasarca: Status: Acute Plan 74M PMH chronic diastolic CHF, diabetes, coronary disease status post stent, DVT/PE on warfarin, paroxysmal AFib, obesity, chronic lymphedema, presented 12/14/24 with dyspnea, admitted with acute multifactorial hypoxic respiratory failure in the setting of aspiration pneumonia, mixed chronic obstructive/restrictive pulmonary disease, CHF exacerbation & AFib RVR complicated by hypercapnic respiratory failure requiring BiPAP and MICU transfer 12/15/24, s/p treatment with BiPAP, IV diuretics, Precedex drip and downgraded 12/19. Intermittent Hypotension--BP has been fluctuating, but has been fairly stable last couple of days continue present meds Hypoxia, 12/27 Chest x-ray showed some mild pulmonary vasculature congestion, with bibasilar opacifications which is consistent with atelectasis versus developing pneumonia. Patient remains on Zosyn as an antibiotic coverage for atypical organisms. CHF was deemed less likely. BiPAP to be used as needed for possible mucus pluging and atelectasis. Continuing following up with xray, cxr 12/28 improving pulmonary edema Acute metabolic encephalopathy MICU delerium Multifocal acute hypoxic and hypercapneic respiratory failure - Acute on chronic diastolic CHF - Obstructive and restrictive pulmonary disease - Aspiration pneumonia Presented with shortness of breath and fatigue, admitted with multifactorial acute hypoxic respiratory failure, developing hypercapnia. Etiology 2/2 acute on chronic CHF exacerbation in the setting of aspiration pneumonia. Patient's superimposed restrictive pulmonary disease 2/2 cervical kyphosis contributing to patient's hypercapnia and acute respiratory decompensation. Patient was diuresed in the medical ICU and required BiPAP and antibiotics. Patient now euvolemic, holding further diuretics, continue BiPAP at nighttime. Outpatient services recommending sleep study - likely KIRILL. Gradual reintroduction of furosemide Continue pulmonary toilet & hygiene Delirium has resolved. Oxygen p.r.n. BiPAP nightly Dehydration Suffering with mild dehydration, with borderline sodium and elevated BUN. No evidence of ELM[place]A. With hydration 1 L LR, the patient's heart rate has normalized further. Most recent labs as of 12/27 no evidence of dehydation Dysphagia, diet recommendation per speech Aspiration pneumonia On Zosyn since 12/21, transition to PO Augmentin REAL ESTATE CLERK - ndd2 with thins Diabetes Insulin sliding scale POC QID AC Coronary artery disease Antiplatelet, statin DVT/PE Continue warfarin, monitor INR (2-3) Paroxysmal AFib with rvr Patient's heart rate has improved. RVR has resolved. Initially 2/2 hypoxia and hypercapnia, along with CHF exacerbation, currently back to clinical baseline. Has improved significantly after now hydration. Plan - continue beta-ela metoprolol 25 q 6, will change to bid - PO cardizem 60 mg q6, change to cardizem cd tomorrow morning - continue warfarin INR goal of 2-3 Chronic lymphedema Continue compression Obesity Has had recent successful weight loss [employer] - VTE: Warfarin INR 2-3 - CODE STATUS: Full code - DIET: Aspiration precautions anticipate dc in 1 to 2 days, discussed with over the phone Total time managing care of this patient today: 45 minutes. Quality Stroke Does the patient have a stroke diagnosis?: No VTE Prior VTE?: Yes VTE Risk Level:: Medical - moderate - high VTE Device Contraindication: N/A - Device Ordered VTE Drug Contraindication: N/A - Med Ordered
[2024-12-30 15:46] LABS: Glucose, Whole Blood 250 mg/dL (60-115)
[2024-12-30] MEDS: 0.9 % Sodium Chloride Flush 3 ML SYRINGE IVFLUSH (20:11)
[2024-12-30 20:19] LABS: Glucose, Whole Blood 217 mg/dL (60-115)
[2024-12-31] VITALS (7 sets, daily range): BP systolic 110–124; BP diastolic 62–76; PULSE 57–95; RESP 12–24; TEMP 36.4–36.6; O2SAT 92–99
--- NOTE | 2024-12-31 | EMG_ITS ---
Chief complaint: WEAKNESS Reason for referral: weakness Referred by:?Dr Ac Procedure done: left upper extremity NCS Data: Left median and ulnar motor and sensory studies were performed left radial sensory and median and lateral antecubital brachial sensory studies were performed and left ulnar repetitive nerve stimulation study was performed. Motor and sensory studies did not reveal any significant abnormality. Repetitive nerve stimulation study revealed significant increment of amplitude especially after exercise. Impression: This is a limited study because lower extremities could not be checked due to significant edema and other medical issues. Left upper extremity was checked, which revealed normal nerve conduction velocities. 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 I recommend checking appropriate antibody titer. MTDD
[2024-12-31 07:11] LABS: Glucose, Whole Blood 164 mg/dL (60-115)
[2024-12-31 07:19] LABS: INTERNATIONAL NORM RATIO 2.2 (0.9-1.1); Prothrombin Time 25.1 SEC (10.9-12.4)
[2024-12-31] MEDS: 0.9 % Sodium Chloride Flush 3 ML SYRINGE IVFLUSH ×2 (08:58→16:51)
--- NOTE | 2024-12-31 11:13 | HO.WOUND ---
Wound Consult: Follow up 74 yr old male admitted to [facility] on 12/14/24- See progress notes and H&P for detailed history. Wound consult follow up for buttock and bilateral legs. Patient agreeable to assessment and photo documentation. Patient reports continued comfort with bed and setting maintained. He is in the Agility Pulsate bed - with setting to 5bars and 5 min intervals and reports increased comfort. He reports mild pain or tenderness to his left buttock. Today he continued to participate in turning and repositioning much more so than in the past with encouragement. Per my discussion with the patient and his significant other d/c planning is for rehab as early as today. They were educated on the wound and overall concerns and areas of improvement. They were educated to advocate for a specialty support surface in addition to continued daily wound care and off loading with Q2hr turns and repositions. Over all his buttock continued to be of unclear etiology. The tissue is improving overall. The red maroon light purple areas are blanching in some areas and over the coccyx remains free of PI. The tissue is not consistent with primary pressure injury alone and continues to improve and evolve. Wound edges continue to carolyn at this time, there appears to be a thin veil of yellow white to wound bed. Chart reviews no gaps in care and all preventative and interventions continue to be in regular consistent use for this patient and his wounds. Triad in place at all times. Inpatient wound care will continue to follow. 12/15/24 On admission 12/22/24 assessment 12/23/24 12/24/24 12/27/24 12/28/24 12/29/24 Todays assessment continues to evolve - Wound bed continues to improve appears smaller in three distinct open areas. The wound beds do appear to be full thickness with some adherent white slough vs pseudo slough. Periwoud continues to improve all areas are blanchable and resolving. The patient continues to be incontinent of loose stool. Providers aware. He is unable to hold his stool and is not able to report in time when he has the urge. 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 INR has stabilized along with critical acute respiratory status - he remains chronically compromised respiratory lorenzo - per provider notes. Male purewick in use. Etiology remains unclear at this time will continue to assess and treat. Topical recommendations updates for traid alone as patient incontinence level has increased and the foam appears to be trapping moisture along the wound beds. Triad alone was applied in addition to off loading pressure with Q 2 hr turns. Patient educated on importance of allowing care and turning and reposition and participating in movement. The patient is noted to have purple purpura like skin changes noted to various areas such as the right leg and right hip area not related to pressure injury. Bilateral Legs dressing not changed at this time as they were changed overnight. Recommendations: 1. Turn and Reposition every 2 hours and as needed for patient comfort. Use pillows or wedges to support off loading positions. 2. Off Load all bony prominences with use of pillows and heel boots if needed. Apply Preventative foams where needed. 3. Monitor for incontinence and moisture control, use barrier creams when needed for prevention and treatment. 4. Provide adequate and supplemental nutrition. 5. Order or Continue low air loss mattress. 6. When applicable maintain blood glucose levels per Providers order. Buttocks - Off Load Pressure with Q2 hr turns and use of pillows - Cleanse with PH balance spray or wipes, pat dry. ?Apply thin layer of Triad to wound bed - only pat and dab no scrub and rub when soiling occurs. Reapply thin layer PRN after each episode of incontinence. Bilateral Lower Legs - Cleanse with NS moist gauze, pat dry. Apply Ammonium lactate cream per provider orders. Cover open wound bed with xeroform, ABd pad and gauze wrap. Change Daily while inpatient. Contonue follow up outpt wound care at time of d/c. See prior assessments for details. Inpatient wound care jaycee continue to follow.
[2024-12-31 11:20] LABS: Glucose, Whole Blood 222 mg/dL (60-115)
--- NOTE | 2024-12-31 11:54 | P.PNIM_ITS ---
Subjective Subjective Date of Service: 12/31/24 Interval History: No new issues, respriatory status has been stable for at least 3 days continues to be generally very weak Review of Systems Review of Systems: Yes all other systems are reviewed and are negative Physical Exam 2 Vital Signs: Vital Signs: Last Vital Signs Temp 97.6 F 12/31/24 11:03 Pulse 74 12/31/24 11:03 Resp 18 12/31/24 11:03 BP 123/70 12/31/24 11:03 Pulse Ox 94 12/31/24 11:03 O2 Del Method Nasal Cannula 12/31/24 11:03 O2 Flow Rate 3 12/31/24 11:03 FiO2 40 12/28/24 23:50 Oxygen Flow Rate 4 12/14/24 10:24 BMI result Body Mass Index 31.1 Objective Data Active Medications Acetaminophen (Acetaminophen 325 Mg Tablet) 650 mg PO Q6H PRN PRN Reason: Pain, Mild 1-3,fever,headache Last Admin: 12/28/24 05:45 Dose: 650 mg Documented By: BHAVYA Aspirin (Aspirin 81 Mg Tab.Chew) 81 mg PO DAILY [facility] Last Admin: 12/31/24 08:57 Dose: 81 mg Documented By: SHERYL Atorvastatin Calcium (Atorvastatin Calcium 40 Mg Tablet) 40 mg PO BEDTIME [facility] Last Admin: 12/30/24 20:10 Dose: 40 mg Documented By: NOÉ Dextrose (Dextrose 50 % 25 Gm/50 Ml Syringe) 25 gm IVPUSH Q15M PRN; Protocol PRN Reason: per Hypoglycemia Standing Ord. Glucose (Glucose Gel 15 Gm Gel..Gram.) 15 gm PO Q15M PRN; Protocol PRN Reason: per Hypoglycemia Standing Ord. Piperacillin Sod/Tazobactam (Sod 4.5 gm/ Sodium Chloride) 100 mls @ 200 mls/hr IV Q6H [facility] Last Infusion: 12/31/24 06:05 Dose: Infused Documented By: HUONG Insulin Human Lispro (Insulin Lispro 100 Unit/Ml 3 Ml Vial) 0 unit SUBCUT QIDACHS [facility]; Protocol Last Admin: 12/31/24 08:58 Dose: 2 unit Documented By: SHERYL Lactic Acid (Ammonium Lactate 12 % Cream 140 Gm Tube) 1 appl TOPICAL DAILY PRN; Protocol PRN Reason: Dry Skin Last Admin: 12/29/24 11:35 Dose: 1 appl Documented By: DEE Metoprolol Tartrate (Metoprolol Tartrate 50 Mg Tablet) 50 mg PO BID [facility]; Protocol Last Admin: 12/31/24 08:57 Dose: 50 mg Documented By: SEHRYL Olanzapine (Olanzapine 10 Mg Vial) 5 mg IM DAILY PRN PRN Reason: Agitation Last Admin: 12/24/24 00:11 Dose: 5 mg Documented By: GENA Sodium Chloride (0.9 % Sodium Chloride Flush 3 Ml Syringe) 3 ml IVFLUSH QSHIFT [facility] Last Admin: 12/31/24 08:58 Dose: 3 ml Documented By: SHERYL Warfarin Sodium (Warfarin Sodium 5 Mg Tablet) 5 mg PO SUMOWEFRSA@1800 [facility] Last Admin: 12/29/24 18:08 Dose: 5 mg Documented By: DEE Warfarin Sodium (Warfarin Sodium 3 Mg Tablet) 3 mg PO TUTH@1800 [facility] Last Admin: 12/30/24 17:43 Dose: 3 mg Documented By: PATRICIA Labs 12/29/24 07:14 12/29/24 07:14 Labs: Laboratory Results - last 24 hr 12/30/24 12/30/24 12/31/24 15:32 20:13 06:35 PT 25.1 H INR 2.2 H POC Glucose 250 H 217 H 12/31/24 12/31/24 07:07 11:01 PT INR POC Glucose 164 H 222 H Assessment and Plan (1) Acute CHF: Status: Acute (2) CHF (congestive heart failure): Status: Acute (3) Atrial fibrillation: Status: Acute (4) Acute on chronic urinary retention: Status: Acute (5) Obstructive uropathy: Status: Acute (6) Acute hypercapnic respiratory failure: Status: Acute (7) Pneumonia: Status: Acute (8) Respiratory failure with hypoxia and hypercapnia: Status: Acute (9) Anasarca: Status: Acute Plan 74M PMH chronic diastolic CHF, diabetes, coronary disease status post stent, DVT/PE on warfarin, paroxysmal AFib, obesity, chronic lymphedema, presented 12/14/24 with dyspnea, admitted with acute multifactorial hypoxic respiratory failure in the setting of aspiration pneumonia, mixed chronic obstructive/restrictive pulmonary disease, CHF exacerbation & AFib RVR complicated by hypercapnic respiratory failure requiring BiPAP and MICU transfer 12/15/24, s/p treatment with BiPAP, IV diuretics, Precedex drip and downgraded 12/19. Intermittent Hypotension--BP has been fluctuating, but has been fairly stable last couple of days continue present meds Hypoxia, 12/27 Chest x-ray showed some mild pulmonary vasculature congestion, with bibasilar opacifications which is consistent with atelectasis versus developing pneumonia. Patient remains on Zosyn as an antibiotic coverage for atypical organisms. CHF was deemed less likely. BiPAP to be used as needed for possible mucus pluging and atelectasis. Continuing following up with xray, cxr 12/28 improving pulmonary edema Acute metabolic encephalopathy MICU delerium Multifocal acute hypoxic and hypercapneic respiratory failure - Acute on chronic diastolic CHF - Obstructive and restrictive pulmonary disease - Aspiration pneumonia Presented with shortness of breath and fatigue, admitted with multifactorial acute hypoxic respiratory failure, developing hypercapnia. Etiology 2/2 acute on chronic CHF exacerbation in the setting of aspiration pneumonia. Patient's superimposed restrictive pulmonary disease 2/2 cervical kyphosis contributing to patient's hypercapnia and acute respiratory decompensation. Patient was diuresed in the medical ICU and required BiPAP and antibiotics. Patient now euvolemic, holding further diuretics, continue BiPAP at nighttime. Outpatient services recommending sleep study - likely [facility]IR[facility]. Gradual reintroduction of furosemide Continue pulmonary toilet & hygiene Delirium has resolved. Oxygen p.r.n. BiPAP nightly Ultimately will need sleep study Was seen by Pulmonology--see note Neuro consult to assess for Neuromuscular condition as possible contribution to respiratory failure with chronic aspiration and atelectasis Dehydration Suffering with mild dehydration, with borderline sodium and elevated BUN. No evidence of ELMIRA. With hydration 1 L LR, the patient's heart rate has normalized further. 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 RVR has resolved. Initially 2/2 hypoxia and hypercapnia, along with CHF exacerbation, currently back to clinical baseline. Has improved significantly after now hydration. Plan - continue beta-ela metoprolol 25 q 6, will change to bid - PO cardizem 60 mg q6, change to cardizem cd tomorrow morning - continue warfarin INR goal of 2-3 Chronic lymphedema Continue compression Obesity Has had recent successful weight loss [employer] - VTE: Warfarin INR 2-3 - CODE STATUS: Full code - DIET: Aspiration precautions anticipate dc in 1 to 2 days, discussed with over the phone Total time managing care of this patient today: 45 minutes. Quality Stroke Does the patient have a stroke diagnosis?: No VTE Prior VTE?: Yes VTE Risk Level:: Medical - moderate - high VTE Device Contraindication: N/A - Device Ordered VTE Drug Contraindication: N/A - Med Ordered
--- NOTE | 2024-12-31 12:46 | P.PNPL_ITS ---
Subjective Subjective Date of Service: 12/31/24 Interval history: The patient was seen on exam. We did have a family meeting with the patient and also his . We had an extensive discussion about his comorbidities specially his pulmonary issues. Appears to have worsening CT scans demonstrating bibasilar atelectasis/consolidations. The lungs are not expanding. The suspicion is micro aspirations and chronic hypo expansion of the lungs resulting in the significant atelectasis. The patient has been chronically ill requiring ICU level of care therefore considering the possibility of critical illness neuropathy resulting in worsening expansion of his lungs. He does have some overall generalized weakness. He is debilitated in part because of deconditioning but has some part due to his chronic illness. The patient has been using noninvasive ventilation, BiPAP at nighttime. This has been affecting beneficial. He has been tolerating it. In view of underlying neuromuscular disease the patient may benefit from continuing noninvasive ventilation at nighttime. This provide improvement in his gas exchange and exposed min of his lung expansion. It will decrease his hospitalizations and also will improve his quality of life and prognosis. The patient did have a barium swallow which is reassuring. Although still suspicious for micro aspirations into the lungs. Objective Data Labs 12/29/24 07:14 12/29/24 07:14 Labs: Laboratory Results - last 24 hr 12/30/24 12/30/24 12/31/24 15:32 20:13 06:35 PT 25.1 H INR 2.2 H POC Glucose 250 H 217 H 12/31/24 12/31/24 07:07 11:01 PT INR POC Glucose 164 H 222 H Microbiology Microbiology Results: Microbiology 12/15/24 14:03 Blood - Venous Blood Culture - Final No growth after 5 days. 12/15/24 14:05 Blood - Venous Blood Culture - Final No growth after 5 days. Review of Systems Review of Systems Yes all other systems are reviewed and are negative Constitutional: Reports as per HPI and Reports no additional constitutional complaints Eyes: Reports as per HPI and Denies no additional eye complaints Denies system reviewed and no additional complaints, except as documented and Reports as per HPI Cardiovascular: Reports as per HPI, Reports no additional cardiovascular complaints, Denies acrocyanosis, Denies cool extremities, Denies chest pain, Denies leg edema, Denies lightheadedness, Denies palpitations, Denies dyspnea and Reports dyspnea on exertion Respiratory: Reports as per HPI, Denies no additional respiratory complaints, Reports cough, Denies dyspnea and Reports dyspnea on exertion Gastrointestinal: Reports as per HPI and Denies no additional gastrointestinal complaints Genitourinary: Reports no additional male genitourinary complaints and Reports as per HPI Musculoskeletal: Reports no additional musculoskeletal complaints, Reports as per HPI, Reports abnormal gait and Reports muscle weakness Skin/Breast: Reports system reviewed and no additional complaints, except as docu Reports system reviewed and no additional complaints, except as documented, Reports as per HPI and Reports abnormal gait Psychiatric: Reports no additional psychiatric complaints and Reports as per HPI Endocrine: Reports no additional endocrine complaints, Reports as per HPI and Denies palpitations Hematologic/Lymphatic: Reports no additional hematologic/lymphatic complaints and Reports as per HPI Allergic/Immunologic: Reports no additional allergic/immunologic complaints and Reports as per HPI Physical Exam 2 Exam: Exam: General: A&O x3, oriented to time place person and situation, comfortable, no pain. Significant thoracocervical kyphosis. Cardiac: S1, S2 auscultated with no S3/4, no MRG. Well perfused. Respiratory: dimished breathsounds GI/ : No abdominal pain on palpation, no masses or distentions. MSK: Normal ambulation without pain at bony prominences or musculature. Lower extremities: Bilateral lower extremity swelling 2+ to the mid shins, with significant evidence of lipodermatosclerosis and dry skin. Neurological: Normal neurological examination on overview, without obvious CN II-XII abnormalities. Vital Signs: Vital Signs: Last Vital Signs Temp 97.6 F 12/31/24 11:03 Pulse 74 12/31/24 11:03 Resp 18 12/31/24 11:03 BP 123/70 12/31/24 11:03 Pulse Ox 94 12/31/24 11:03 O2 Del Method Nasal Cannula 12/31/24 11:03 O2 Flow Rate 3 12/31/24 11:03 FiO2 40 12/28/24 23:50 Oxygen Flow Rate 4 12/14/24 10:24 BMI result Body Mass Index 31.1 Procedures Date of Service Date of Service: 12/31/24 Assessment and Plan Assessment and plan (1) Atelectasis of both lungs: Status: Acute (2) Chronic restrictive lung disease: Status: Acute (3) Respiratory failure with hypoxia and hypercapnia: Status: Acute (4) Pneumonia: Status: Acute (5) Acute hypercapnic respiratory failure: Status: Acute Plan Start chlorhexidine mouthwash daily to decrease the risk of micro aspirations and aspiration pneumonia I suspect the patient may have a component of neuromuscular disease such as neuropathy that may be affecting his inability to expand his lungs significant comorbidities. If the patient does have a neuromuscular disease then we could look into starting him on a noninvasive ventilator that could provide improvement of lung expansion gas exchange and improve his prognosis. Will have Neurology commented see if there is any suspicion for neuromuscular disease in order for us to be able to look into providing him a noninvasive ventilator. We did talk about bronchoscopy to assess his airways and assess for foreign bodies or anything that could be potentially causing obstruction of the airways causing significant atelectasis. My suspicion that is mainly hypo expansion related as supposed to airway obstruction. The patient does carry high risk because of his comorbidities. For now will try to work on less invasive procedures. If the patient is no better we can always consider it. Diuresis as tolerated Out of bed to chair with working center spirometer for deep breathing techniques For disposition once the patient is able to be discharged would recommend a pulmonary rehabilitation where he can work on continuing his respiratory muscle strengthening in improvement of his pulmonary capacity Time Spent With Patient Time: Total time managing care of this patient today ____ minutes. Progress Note: Quality Stroke Does the patient have a stroke diagnosis?: No
--- NOTE | 2024-12-31 13:22 | P.CNNE_ITS ---
History of Present Illness Data of Consult Service Date: 12/31/24 Primary Care Provider: Katie Gaytan MD HPI Reason for consult: Generalized weakness 74 years old man with chronic atrial fibrillation and CHF recently admitted in ICU I was asked to see for generalized weakness. He said that previously he was strong. He was admitted in December 14 and was taken to ICU for management. Now he was feeling weak. He denied that he had any significant difficulty swallowing. There was no change in his speech. There was no double vision or droopiness. Review of Systems 2 Review of Systems: Recent cardiopulmonary failure and admission to ICU [facility] Past Medical History Medical History (Updated 12/31/24 @ 13:27 by Morgan Ac MD) Atelectasis of both lungs Chronic restrictive lung disease Atrial fibrillation Atrial fibrillation with RVR BPH (benign prostatic hyperplasia) Chronic venous stasis dermatitis GERD (gastroesophageal reflux disease) CAD (coronary artery disease) Type 2 diabetes mellitus (HFpEF) heart failure with preserved ejection fraction Family History Family History Father Kidney cancer, primary, with metastasis from kidney to other site Heart disease Surgical History Surgical History Hx of colonoscopy Status post percutaneous transluminal angioplasty ([employer]) with stent placement Social History Social History Household Members: Other Housing: House Are you a primary memory care program director to a significant other at home: No Do you presently have visiting nurse or other home services: Yes Alcohol intake: current Alcohol intake frequency: holidays/special occasions only Patient Tobacco Use Status: Never used Tobacco Second Hand Smoke Exposure: No Advance Directives Date on File: 02/13/23 service: No Meds Allergies Allergy/AdvReac Type Severity Reaction Status Date / Time peanut (PEANUTS) Allergy Intermediate Hives Verified 12/14/24 10:24 wool (WOOL) Allergy Unknown UNK Verified 12/14/24 10:24 Active Medications: Current Medications Acetaminophen (Acetaminophen 325 Mg Tablet) 650 mg PO Q6H PRN PRN Reason: Pain, Mild 1-3,fever,headache Last Admin: 12/28/24 05:45 Dose: 650 mg Aspirin (Aspirin 81 Mg Tab.Chew) 81 mg PO DAILY [facility] Last Admin: 12/31/24 08:57 Dose: 81 mg Atorvastatin Calcium (Atorvastatin Calcium 40 Mg Tablet) 40 mg PO BEDTIME [facility] Last Admin: 12/30/24 20:10 Dose: 40 mg Dextrose (Dextrose 50 % 25 Gm/50 Ml Syringe) 25 gm IVPUSH Q15M PRN; Protocol PRN Reason: per Hypoglycemia Standing Ord. Glucose (Glucose Gel 15 Gm Gel..Gram.) 15 gm PO Q15M PRN; Protocol PRN Reason: per Hypoglycemia Standing Ord. Piperacillin Sod/Tazobactam (Sod 4.5 gm/ Sodium Chloride) 100 mls @ 200 mls/hr IV Q6H [facility] Last Infusion: 12/31/24 12:26 Dose: Infused Insulin Human Lispro (Insulin Lispro 100 Unit/Ml 3 Ml Vial) 0 unit SUBCUT QIDACHS [facility]; Protocol Last Admin: 12/31/24 11:56 Dose: 4 unit Lactic Acid (Ammonium Lactate 12 % Cream 140 Gm Tube) 1 appl TOPICAL DAILY PRN; Protocol PRN Reason: Dry Skin Last Admin: 12/29/24 11:35 Dose: 1 appl Metoprolol Tartrate (Metoprolol Tartrate 50 Mg Tablet) 50 mg PO BID [facility]; Protocol Last Admin: 12/31/24 08:57 Dose: 50 mg Olanzapine (Olanzapine 10 Mg Vial) 5 mg IM DAILY PRN PRN Reason: Agitation Last Admin: 12/24/24 00:11 Dose: 5 mg Sodium Chloride (0.9 % Sodium Chloride Flush 3 Ml Syringe) 3 ml IVFLUSH QSHIFT [facility] Last Admin: 12/31/24 08:58 Dose: 3 ml Warfarin Sodium (Warfarin Sodium 5 Mg Tablet) 5 mg PO SUMOWEFRSA@1800 [facility] Last Admin: 12/29/24 18:08 Dose: 5 mg Warfarin Sodium (Warfarin Sodium 3 Mg Tablet) 3 mg PO TUTH@1800 [facility] Last Admin: 12/30/24 17:43 Dose: 3 mg Home Medications ?Medication ?Instructions ?Recorded ?Confirmed ?Last Taken ?Type atorvastatin 40 mg tablet 40 mg PO BEDTIME 09/03/2212/14/24 History dulaglutide 1.5 mg/0.5 mL 1.5 mg subcut TH@0912/14/24 12/09/24 [facility] folic acid 1 mg tablet 1 mg PO DAILY@1200 09/04/22 12/14/24 12/14/24 History insulin lispro 100 unit/mL See Rx Instructions .Route .COMPLEX 09/04/22 12/14/24 12/14/24 History subcutaneous solution (Humalog U-100 Insulin) flash glucose scanning reader #1 ea 01/06/23 03/09/24 Unknown History (FreeStyle Pat 2 [place]) flash glucose sensor (FreeStyle #1 ea 01/06/23 4 Unknown History Pat 2 Sensor kit) ammonium lactate 12 % topical cream 1 appl topical HEBER LY PRN Wound Care 02/12/23 12/14/24 Unknown History silver sulfadiazine 1 % topical 1 appl topical DAILY P transport technician 02/12/23 12/14/24 Unknown History cream sub-q insulin device, 20 unit 02/12/23 03/09/2403/24 History (V-GO 20 device) warfarin 5 mg tablet 5 mg PO SUMOWEFRSA@1800 01/2012/14/24 1 Day Ago History ~12/13/24 metformin 500 mg tablet,extended 500 mg PO BID 4 12/14/24 12/14/24 History release 24 hr diltiazem HCl 120 mg tablet 120 mg PO DAILY 03/23/24 0 12/14/24 12/14/24 History aspirin 81 mg tablet,delayed 81 mg PO DAILY 05/12/24 0 12/14/24 12/14/24 History release (Adult Aspirin Regimen) metoprolol tartrate 100 mg tablet 150 mg PO BID@0900,1 700 12/14/24 12/14/24 12/14/24 History warfarin 5 mg tablet 2.5 mg PO TUTH@1800 12/14/24 12/14/24 1 Day Ago History ~12/13/24 Physical Exam 2 Vital Signs: Vital Signs: Last Vital Signs Temp 97.6 F 12/31/24 11:03 Pulse 74 12/31/24 11:03 Resp 18 12/31/24 11:03 BP 123/70 12/31/24 11:03 Pulse Ox 94 12/31/24 11:03 O2 Del Method Nasal Cannula 12/31/24 11:03 O2 Flow Rate 3 12/31/24 11:03 FiO2 40 12/28/24 23:50 Oxygen Flow Rate 4 12/14/24 10:24 BMI result Body Mass Index 31.1 Neuro: Other: He is alert and awake with normal spontaneity of speech fluency comprehension and flat affect. There was no distinct ptosis. Face is symmetrical. Speech is normal. He has 4/5 diffuse a bilateral upper extremity weakness. Both legs had significant edema and were in bandage. There was moderate diffuse atrophy. Knee reflexes were trace to 1+ while ankle reflexes were absent and plantars were equivocal or extensor. Results Labs 12/29/24 07:14 12/29/24 07:14 Microbiology Microbiology Results: Microbiology 12/15/24 14:03 Blood - Venous Blood Culture - Final No growth after 5 days. 12/15/24 14:05 Blood - Venous Blood Culture - Final No growth after 5 days. Assessment and Plan (1) Generalized weakness: Status: Acute 74 years old man with recent cardiopulmonary failure with admission to ICU now on IMC with bilateral arm or leg weakness. He denied that he had any distinct swallowing difficulty or double vision. His examination revealed signs of chronic neuropathy but also there was an element of bilateral pyramidal dysfunction. His cervical spine CTA head revealed significant mid cervical stenosis and these features might suggest myelopathy. My recommendation is to obtain a noncontrast MRI of cervical spine to rule out cord compression. As far as performing EMG nerve conduction study is concerned, it can not be performed in legs. We would try to obtain left arm study as right arm is also relatively in accessible because of IV lines. This may put some light into his condition. Overall clinical situation is less suggestive of neuromuscular disorder. Procedures Date of Service Date of Service: 12/31/24
--- NOTE | 2024-12-31 13:33 | MHC.CLN ---
F/U PO INTAKE REMAINS 75-100% DIET RX: 2000DM DIET RECEIVING ENSURE MAX BID TO PROMOTE WOUND HEALING SUPP PROVIDES 300KCALS, 60G PROTEIN WITH 100% ACCEPTANCE CONTINUE TO MONITOR PO INTAKE AND ENCOURAGE SUPPLEMENTS
--- NOTE | 2024-12-31 14:48 | MHC.CM.PN ---
Per rounds, pt. will require pulomonary rehab at [place], referrals out. Barrier to STR is sleep study, not available as inpatient, STR saying they cannot accept. CM has reached out to [facility] to ask if MD note saying sleep study OK to be after STR, awaiting response.
[2024-12-31 16:05] LABS: Folate 12.2 ng/mL (> or = 4.0); Vitamin B12 394 pg/mL (200-900)
--- NOTE | 2024-12-31 16:13 | MHC.SL.SWA ---
Speech Pathologist Impression: Risk of Aspiration Due to: Dysphasia Diet Status: Continue on diet of REGULAR with THIN liquids, Pills whole in puree. Liquid Consistency and Strategies for Safe Swallow: Liquid Intake Recommendation: Thin Liquid Intake Strategies: Small Sips Solid Food Consistency: Dietary Recommendations: Regular Additional Modifications to Solid Foods: Oral Medication Intake: Whole with Puree Please contact the pharmacy regarding appropriate crushable or liquid drug formulations that are available whenever modified delivery is recommended. Compensatory Strategies and Precautions to be Taken for Safe Swallow: Sitting Upright (90 deg) Liquids from Straw Small Bites and Sips Rate of Ingestion Change Supervision While Eating and Drinking for Safe Swallow: Intermittent Supervision Foods to Avoid: tough, difficult to chew solids. Swallowing Recommended Treatments: Compens. Strategy Educat. Recommendation for Speech: Inpatient Speech Therapy Comment: Patient seen briefly at lunch with present. Patient had cale with fish, sweet potatoes and broccoli. Patient had speared a large piece of broccoli and was about to eat, with the milk drier ? if it should be cut smaller. Patient said I can just chew it and bit a piece of the broccoli off. Patient said I have been eating on my own for several days now, which is good progress. Per , case specialist reported that there was some issue on the MBS he found concerning, and recommended patient duck head on swallowing, which patient was attempting to do. ER MANAGER's reading of MBS indicated WFL with no signs of aspiration, but elected not to contradict case specialist and recommendation. Patient was progressing through meal well, drinking thin liquids with straw with no difficulty, is now independently feeding and appears satisfied with options and meals. Patient is on least restrictive diet and tolerating well. No further speech service indicated and none needed at next level of care unless change in status occurs. ER MANAGER will discharge at this time. Frequency/Duration: Date Range for Service Req: Timeline to reassess: National Account Representative Clinican/Clinical Fellow: No Supervisory Statement: I have reviewed and agree with the student/clinical fellow's documentation: N/A Speech Language Pathologist: Betsy Snider M.A., [facility]-ER MANAGER
[2024-12-31 16:37] LABS: Glucose, Whole Blood 159 mg/dL (60-115)
[2024-12-31 21:08] LABS: Glucose, Whole Blood 186 mg/dL (60-115)
[2025-01-01] VITALS (9 sets, daily range): BP systolic 113–136; BP diastolic 67–80; PULSE 73–97; RESP 12–24; TEMP 36.2–36.7; O2SAT 92–97
[2025-01-01] MEDS: 0.9 % Sodium Chloride Flush 3 ML SYRINGE IVFLUSH ×4 (01:35→21:08)
[2025-01-01 07:15] LABS: Glucose, Whole Blood 177 mg/dL (60-115)
[2025-01-01 07:32] LABS: INTERNATIONAL NORM RATIO 2.3 (0.9-1.1); Prothrombin Time 26.6 SEC (10.9-12.4)
[2025-01-01 11:29] LABS: Glucose, Whole Blood 231 mg/dL (60-115)
--- NOTE | 2025-01-01 12:27 | P.PNIM_ITS ---
Subjective Subjective Date of Service: 01/01/25 Interval History: No new changes. Has not had any acute respiratory issues or blood pressure issues the last 5 days.. Review of Systems Review of Systems: Yes all other systems are reviewed and are negative Physical Exam 2 Vital Signs: Vital Signs: Last Vital Signs Temp 97.1 F 01/01/25 11:30 Pulse 83 01/01/25 11:30 Resp 18 01/01/25 11:30 BP 127/70 01/01/25 11:30 Pulse Ox 96 01/01/25 11:30 O2 Del Method Nasal Cannula 01/01/25 11:30 O2 Flow Rate 3 01/01/25 11:30 FiO2 40 12/28/24 23:50 Oxygen Flow Rate 4 12/14/24 10:24 BMI result Body Mass Index 31.1 Objective Data Active Medications Acetaminophen (Acetaminophen 325 Mg Tablet) 650 mg PO Q6H PRN PRN Reason: Pain, Mild 1-3,fever,headache Last Admin: 12/28/24 05:45 Dose: 650 mg Documented By: BHAVYA Aspirin (Aspirin 81 Mg Tab.Chew) 81 mg PO DAILY [facility] Last Admin: 01/01/25 08:03 Dose: 81 mg Documented By: SHERYL Atorvastatin Calcium (Atorvastatin Calcium 40 Mg Tablet) 40 mg PO BEDTIME [facility] Last Admin: 12/31/24 20:36 Dose: 40 mg Documented By: HALLIE Dextrose (Dextrose 50 % 25 Gm/50 Ml Syringe) 25 gm IVPUSH Q15M PRN; Protocol PRN Reason: per Hypoglycemia Standing Ord. Glucose (Glucose Gel 15 Gm Gel..Gram.) 15 gm PO Q15M PRN; Protocol PRN Reason: per Hypoglycemia Standing Ord. Insulin Human Lispro (Insulin Lispro 100 Unit/Ml 3 Ml Vial) 0 unit SUBCUT QIDACHS [facility]; Protocol Last Admin: 01/01/25 11:41 Dose: 4 unit Documented By: SHERYL Lactic Acid (Ammonium Lactate 12 % Cream 140 Gm Tube) 1 appl TOPICAL DAILY PRN; Protocol PRN Reason: Dry Skin Last Admin: 12/29/24 11:35 Dose: 1 appl Documented By: DEE Metoprolol Tartrate (Metoprolol Tartrate 50 Mg Tablet) 50 mg PO BID [facility]; Protocol Last Admin: 01/01/25 08:03 Dose: 50 mg Documented By: SHERYL Olanzapine (Olanzapine 10 Mg Vial) 5 mg IM DAILY PRN PRN Reason: Agitation Last Admin: 12/24/24 00:11 Dose: 5 mg Documented By: GENA Sodium Chloride (0.9 % Sodium Chloride Flush 3 Ml Syringe) 3 ml IVFLUSH QSHIFT [facility] Last Admin: 01/01/25 08:04 Dose: 3 ml Documented By: SHERYL Warfarin Sodium (Warfarin Sodium 5 Mg Tablet) 5 mg PO SUMOWEFRSA@1800 [facility] Last Admin: 12/31/24 17:38 Dose: 5 mg Documented By: SHERYL Warfarin Sodium (Warfarin Sodium 3 Mg Tablet) 3 mg PO TUTH@1800 [facility] Last Admin: 12/30/24 17:43 Dose: 3 mg Documented By: PATRICIA Labs 12/29/24 07:14 12/29/24 07:14 Labs: Laboratory Results - last 24 hr 12/31/24 12/31/24 12/31/24 13:28 16:34 20:57 Hold Purple Top PT INR POC Glucose 159 H 186 H Vitamin B12 394 Folate 12.2 01/01/25 01/01/25 01/01/25 06:51 07:12 11:25 Hold Purple Top SEE NOTE PT 26.6 H INR 2.3 H POC Glucose 177 H 231 H Vitamin B12 Folate Assessment and Plan (1) Acute CHF: Status: Acute (2) CHF (congestive heart failure): Status: Acute (3) Atrial fibrillation: Status: Acute (4) Acute on chronic urinary retention: Status: Acute (5) Obstructive uropathy: Status: Acute (6) Acute hypercapnic respiratory failure: Status: Acute (7) Pneumonia: Status: Acute (8) Respiratory failure with hypoxia and hypercapnia: Status: Acute (9) Anasarca: Status: Acute Plan 74M PMH chronic diastolic CHF, diabetes, coronary disease status post stent, DVT/PE on warfarin, paroxysmal AFib, obesity, chronic lymphedema, presented 12/14/24 with dyspnea, admitted with acute multifactorial hypoxic respiratory failure in the setting of aspiration pneumonia, mixed chronic obstructive/restrictive pulmonary disease, CHF exacerbation & AFib RVR complicated by hypercapnic respiratory failure requiring BiPAP and MICU transfer 12/15/24, s/p treatment with BiPAP, IV diuretics, Precedex drip and downgraded 12/19. Intermittent Hypotension--BP has been fluctuating, but has been fairly stable last couple of days continue present meds Hypoxia, 12/27 Chest x-ray showed some mild pulmonary vasculature congestion, with bibasilar opacifications which is consistent with atelectasis versus developing pneumonia. Patient remains on Zosyn as an antibiotic coverage for atypical organisms. CHF was deemed less likely. BiPAP to be used as needed for possible mucus pluging and atelectasis. Continuing following up with xray, cxr 12/28 improving pulmonary edema Acute metabolic encephalopathy MICU delerium Multifocal acute hypoxic and hypercapneic respiratory failure - Acute on chronic diastolic CHF - Obstructive and restrictive pulmonary disease - Aspiration pneumonia Presented with shortness of breath and fatigue, admitted with multifactorial acute hypoxic respiratory failure, developing hypercapnia. Etiology 2/2 acute on chronic CHF exacerbation in the setting of aspiration pneumonia. Patient's superimposed restrictive pulmonary disease 2/2 cervical kyphosis contributing to patient's hypercapnia and acute respiratory decompensation. Patient was diuresed in the medical ICU and required BiPAP and antibiotics. Patient now euvolemic, holding further diuretics, continue BiPAP at nighttime. Outpatient services recommending sleep study - likely [facility]. Gradual reintroduction of furosemide Continue pulmonary toilet & hygiene Delirium has resolved. Oxygen p.r.n. BiPAP nightly Ultimately will need sleep study Was seen by Pulmonology--see note Neuro consult to assess for Neuromuscular condition as possible contribution to respiratory failure with chronic aspiration and atelectasis.. Had nerve conduction study yesterday result pending, Neuro also recommended MRI of back pending. Dehydration Suffering with mild dehydration, with borderline sodium and elevated BUN. No evidence of [place]. With hydration 1 L LR, the patient's heart rate has normalized further. 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 RVR has resolved. Initially 2/2 hypoxia and hypercapnia, along with CHF exacerbation, currently back to clinical baseline. Has improved significantly after now hydration. Plan - continue beta-ela metoprolol 25 q 6, will change to bid - PO cardizem 60 mg q6, change to cardizem cd tomorrow morning - continue warfarin INR goal of 2-3 Chronic lymphedema Continue compression Obesity Has had recent successful weight loss [employer] - VTE: Warfarin INR 2-3 - CODE STATUS: Full code - DIET: Aspiration precautions anticipate dc in 1 to 2 days, discussed with over the phone Total time managing care of this patient today: 45 minutes. Quality Stroke Does the patient have a stroke diagnosis?: No VTE Prior VTE?: Yes VTE Risk Level:: Medical - moderate - high VTE Device Contraindication: N/A - Device Ordered VTE Drug Contraindication: N/A - Med Ordered
[2025-01-01 16:22] LABS: Glucose, Whole Blood 149 mg/dL (60-115)
[2025-01-01 20:33] LABS: Glucose, Whole Blood 221 mg/dL (60-115)
[2025-01-02] VITALS (7 sets, daily range): BP systolic 103–136; BP diastolic 57–80; PULSE 70–91; RESP 12–24; TEMP 36.3–36.9; O2SAT 92–97
[2025-01-02 07:37] LABS: INTERNATIONAL NORM RATIO 2.1 (0.9-1.1); Prothrombin Time 24.5 SEC (10.9-12.4)
[2025-01-02 07:45] LABS: Glucose, Whole Blood 189 mg/dL (60-115)
[2025-01-02] MEDS: 0.9 % Sodium Chloride Flush 3 ML SYRINGE IVFLUSH ×3 (08:43→23:05)
[2025-01-02 11:29] LABS: Glucose, Whole Blood 186 mg/dL (60-115)
--- NOTE | 2025-01-02 11:43 | P.PNIM_ITS ---
Subjective Subjective Date of Service: 01/02/25 Interval History: Doing well with no new changes. MRI not yet done, would like to wait till tomorrow Review of Systems Review of Systems: Yes all other systems are reviewed and are negative Physical Exam 2 Exam: Exam: General: A&O x3, oriented to time place person and situation, comfortable, no pain. Significant thoracocervical kyphosis. Cardiac: S1, S2 auscultated with no S3/4, no MRG. Well perfused. Respiratory: dimished breathsounds GI/ : No abdominal pain on palpation, no masses or distentions. MSK: Normal ambulation without pain at bony prominences or musculature. Lower extremities: Bilateral lower extremity swelling 2+ to the mid shins, with significant evidence of lipodermatosclerosis and dry skin. Neurological: Normal neurological examination on overview, without obvious CN II-XII abnormalities. Vital Signs: Vital Signs: Last Vital Signs Temp 97.8 F 01/02/25 11:39 Pulse 70 01/02/25 11:39 Resp 16 01/02/25 11:39 BP 122/68 01/02/25 11:39 Pulse Ox 96 01/02/25 11:39 O2 Del Method Nasal Cannula 01/02/25 11:39 O2 Flow Rate 3 01/02/25 11:39 FiO2 40 12/28/24 23:50 Oxygen Flow Rate 4 12/14/24 10:24 BMI result Body Mass Index 31.1 Objective Data Active Medications Acetaminophen (Acetaminophen 325 Mg Tablet) 650 mg PO Q6H PRN PRN Reason: Pain, Mild 1-3,fever,headache Last Admin: 12/28/24 05:45 Dose: 650 mg Documented By: BHAVYA Aspirin (Aspirin 81 Mg Tab.Chew) 81 mg PO DAILY [facility] Last Admin: 01/02/25 08:43 Dose: 81 mg Documented By: SHERYL Atorvastatin Calcium (Atorvastatin Calcium 40 Mg Tablet) 40 mg PO BEDTIME [facility] Last Admin: 01/01/25 21:07 Dose: 40 mg Documented By: NAILA Dextrose (Dextrose 50 % 25 Gm/50 Ml Syringe) 25 gm IVPUSH Q15M PRN; Protocol PRN Reason: per Hypoglycemia Standing Ord. Glucose (Glucose Gel 15 Gm Gel..Gram.) 15 gm PO Q15M PRN; Protocol PRN Reason: per Hypoglycemia Standing Ord. Insulin Human Lispro (Insulin Lispro 100 Unit/Ml 3 Ml Vial) 0 unit SUBCUT QIDACHS [facility]; Protocol Last Admin: 01/02/25 08:43 Dose: 2 unit Documented By: SHERYL Lactic Acid (Ammonium Lactate 12 % Cream 140 Gm Tube) 1 appl TOPICAL DAILY PRN; Protocol PRN Reason: Dry Skin Last Admin: 12/29/24 11:35 Dose: 1 appl Documented By: DEE Metoprolol Tartrate (Metoprolol Tartrate 50 Mg Tablet) 50 mg PO BID [facility]; Protocol Last Admin: 01/02/25 08:43 Dose: 50 mg Documented By: SHERYL Olanzapine (Olanzapine 10 Mg Vial) 5 mg IM DAILY PRN PRN Reason: Agitation Last Admin: 12/24/24 00:11 Dose: 5 mg Documented By: GENA Sodium Chloride (0.9 % Sodium Chloride Flush 3 Ml Syringe) [facility] Last Admin: 01/02/25 08:43 Dose: 3 ml Documented By: SHERYL Warfarin Sodium (Warfarin Sodium 5 Mg Tablet) 5 mg PO SUMOWEFRSA@1800 [facility] Last Admin: 01/01/25 18:00 Dose: 5 mg Documented By: SHERYL Warfarin Sodium (Warfarin Sodium 3 Mg Tablet) 3 mg PO TUTH@1800 [facility] Last Admin: 12/30/24 17:43 Dose: 3 mg Documented By: PATRICIA Labs 12/29/24 07:14 12/29/24 07:14 Labs: Laboratory Results - last 24 hr 01/01/25 01/01/25 01/02/25 16:13 20:30 07:06 Hold Purple Top SEE NOTE PT 24.5 H INR 2.1 H POC Glucose 149 H 221 H 01/02/25 01/02/25 07:20 11:21 Hold Purple Top PT INR POC Glucose 189 H 186 H Assessment and Plan (1) Acute CHF: Status: Acute (2) CHF (congestive heart failure): Status: Acute (3) Atrial fibrillation: Status: Acute (4) Acute on chronic urinary retention: Status: Acute (5) Obstructive uropathy: Status: Acute (6) Acute hypercapnic respiratory failure: Status: Acute (7) Pneumonia: Status: Acute (8) Respiratory failure with hypoxia and hypercapnia: Status: Acute (9) Anasarca: Status: Acute Plan 74M PMH chronic diastolic CHF, diabetes, coronary disease status post stent, DVT/PE on warfarin, paroxysmal AFib, obesity, chronic lymphedema, presented 12/14/24 with dyspnea, admitted with acute multifactorial hypoxic respiratory failure in the setting of aspiration pneumonia, mixed chronic obstructive/restrictive pulmonary disease, CHF exacerbation & AFib RVR complicated by hypercapnic respiratory failure requiring BiPAP and MICU transfer 12/15/24, s/p treatment with BiPAP, IV diuretics, Precedex drip and downgraded 12/19. Intermittent Hypotension--BP has been fluctuating, but has been fairly stable last couple of days continue present meds Hypoxia, 12/27 Chest x-ray showed some mild pulmonary vasculature congestion, with bibasilar opacifications which is consistent with atelectasis versus developing pneumonia. Patient remains on Zosyn as an antibiotic coverage for atypical organisms. CHF was deemed less likely. BiPAP to be used as needed for possible mucus pluging and atelectasis. Continuing following up with xray, cxr 12/28 improving pulmonary edema Acute metabolic encephalopathy MICU delerium Multifocal acute hypoxic and hypercapneic respiratory failure - Acute on chronic diastolic CHF - Obstructive and restrictive pulmonary disease - Aspiration pneumonia Presented with shortness of breath and fatigue, admitted with multifactorial acute hypoxic respiratory failure, developing hypercapnia. Etiology 2/2 acute on chronic CHF exacerbation in the setting of aspiration pneumonia. Patient's superimposed restrictive pulmonary disease 2/2 cervical kyphosis contributing to patient's hypercapnia and acute respiratory decompensation. Patient was diuresed in the medical ICU and required BiPAP and antibiotics. Patient now euvolemic, holding further diuretics, continue BiPAP at nighttime. Outpatient services recommending sleep study - likely KIRILL. Gradual reintroduction of furosemide Continue pulmonary toilet & hygiene Delirium has resolved. Oxygen p.r.n. BiPAP nightly Ultimately will need sleep study Was seen by Pulmonology--see note Neuro consult to assess for Neuromuscular condition as possible contribution to respiratory failure with chronic aspiration and atelectasis.. Had nerve conduction study yesterday result pending, Neuro also recommended MRI of back pending. Dehydration Suffering with mild dehydration, with borderline sodium and elevated BUN. No evidence of ELMIRA. With hydration 1 L LR, the patient's heart rate has normalized further. 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 RVR has resolved. Initially 2/2 hypoxia and hypercapnia, along with CHF exacerbation, currently back to clinical baseline. Has improved significantly after now hydration. Plan - continue beta-ela metoprolol 25 q 6, will change to bid - PO cardizem 60 mg q6, change to cardizem cd tomorrow morning - continue warfarin INR goal of 2-3 Chronic lymphedema Continue compression Obesity Has had recent successful weight loss QUALITY METRICS - VTE: Warfarin INR 2-3 - CODE STATUS: Full code - DIET: Aspiration precautions anticipate dc later this week, discussed with over the phone Total time managing care of this patient today: 45 minutes. Quality Stroke Does the patient have a stroke diagnosis?: No VTE Prior VTE?: Yes VTE Risk Level:: Medical - moderate - high VTE Device Contraindication: N/A - Device Ordered VTE Drug Contraindication: N/A - Med Ordered
[2025-01-02 16:11] LABS: Glucose, Whole Blood 187 mg/dL (60-115)
--- NOTE | 2025-01-02 19:53 | PM.EVENT ---
Event Note Date of Service: 01/02/25 Event Note: Pt has new opthalmic hemorrhage of right eye, apearance of vitreous, vision is intack INR is only 2.1 but out of abundance of caution will hold today and continue monitor closely Time Spent With Patient Time: Total time managing care of this patient today ____ minutes.
[2025-01-02 20:31] LABS: Glucose, Whole Blood 209 mg/dL (60-115)
[2025-01-03] VITALS (7 sets, daily range): BP systolic 100–127; BP diastolic 59–87; PULSE 68–105; RESP 18–22; TEMP 36.2–36.4; O2SAT 90–100
[2025-01-03 07:00] LABS: INTERNATIONAL NORM RATIO 1.9 (0.9-1.1); Prothrombin Time 21.8 SEC (10.9-12.4)
[2025-01-03 07:18] LABS: Glucose, Whole Blood 180 mg/dL (60-115)
[2025-01-03] MEDS: 0.9 % Sodium Chloride Flush 3 ML SYRINGE IVFLUSH ×2 (08:00→17:41)
[2025-01-03 11:34] LABS: Glucose, Whole Blood 176 mg/dL (60-115)
--- NOTE | 2025-01-03 14:58 | P.PNIM_ITS ---
Subjective Subjective Date of Service: 01/03/25 Interval History: Has no new complaint, right eye redness appear better Physical Exam 2 Exam: Exam: General: A&O x3, oriented to time place person and situation, comfortable, no pain. Significant thoracocervical kyphosis. Cardiac: S1, S2 auscultated with no S3/4, no MRG. Well perfused. Respiratory: dimished breathsounds GI/ : No abdominal pain on palpation, no masses or distentions. MSK: Normal ambulation without pain at bony prominences or musculature. Lower extremities: Bilateral lower extremity swelling 2+ to the mid shins, with significant evidence of lipodermatosclerosis and dry skin. Neurological: Normal neurological examination on overview, without obvious CN II-XII abnormalities. Vital Signs: Vital Signs: Last Vital Signs Temp 97.1 F 01/03/25 11:23 Pulse 68 01/03/25 11:23 Resp 19 01/03/25 11:23 BP 100/59 L 01/03/25 11:23 Pulse Ox 99 01/03/25 11:23 O2 Del Method Nasal Cannula 01/03/25 11:23 O2 Flow Rate 3 01/03/25 11:23 FiO2 40 12/28/24 23:50 Oxygen Flow Rate 4 12/14/24 10:24 BMI result Body Mass Index 31.1 Objective Data Active Medications Acetaminophen (Acetaminophen 325 Mg Tablet) 650 mg PO Q6H PRN PRN Reason: Pain, Mild 1-3,fever,headache Last Admin: 12/28/24 05:45 Dose: 650 mg Documented By: BHAVYA Aspirin (Aspirin 81 Mg Tab.Chew) 81 mg PO DAILY [facility] Last Admin: 01/03/25 07:59 Dose: 81 mg Documented By: MESHA Atorvastatin Calcium (Atorvastatin Calcium 40 Mg Tablet) 40 mg PO BEDTIME [facility] Last Admin: 01/02/25 20:14 Dose: 40 mg Documented By: ENRIKE Dextrose (Dextrose 50 % 25 Gm/50 Ml Syringe) 25 gm IVPUSH Q15M PRN; Protocol PRN Reason: per Hypoglycemia Standing Ord. Glucose (Glucose Gel 15 Gm Gel..Gram.) 15 gm PO Q15M PRN; Protocol PRN Reason: per Hypoglycemia Standing Ord. Insulin Human Lispro (Insulin Lispro 100 Unit/Ml 3 Ml Vial) 0 unit SUBCUT QIDACHS [facility]; Protocol Last Admin: 01/03/25 12:40 Dose: 2 unit Documented By: MESHA Lactic Acid (Ammonium Lactate 12 % Cream 140 Gm Tube) 1 appl TOPICAL DAILY PRN; Protocol PRN Reason: Dry Skin Last Admin: 12/29/24 11:35 Dose: 1 appl Documented By: DEE Metoprolol Tartrate (Metoprolol Tartrate 50 Mg Tablet) 50 mg PO BID [facility]; Protocol Last Admin: 01/03/25 07:59 Dose: 50 mg Documented By: MESHA Olanzapine (Olanzapine 10 Mg Vial) 5 mg IM DAILY PRN PRN Reason: Agitation Last Admin: 12/24/24 00:11 Dose: 5 mg Documented By: GENA Sodium Chloride (0.9 % Sodium Chloride Flush 3 Ml Syringe) 3 ml IVFLUSH QSHIFT [facility] Last Admin: 01/03/25 08:00 Dose: 3 ml Documented By: MESHA Warfarin Sodium (Warfarin Sodium 5 Mg Tablet) 5 mg PO SUMOWEFRSA@1800 [facility] Last Admin: 01/02/25 17:14 Dose: Not Given Documented By: SHERYL Non-Admin Reason: Physician Held Med Warfarin Sodium (Warfarin Sodium 3 Mg Tablet) 3 mg PO TUTH@1800 [facility] Last Admin: 12/30/24 17:43 Dose: 3 mg Documented By: PATRICIA Labs 12/29/24 07:14 12/29/24 07:14 Labs: Laboratory Results - last 24 hr 01/02/25 01/02/25 01/03/25 16:02 20:28 06:19 PT 21.8 H INR 1.9 H POC Glucose 187 H 209 H 01/03/25 01/03/25 07:11 11:29 PT INR POC Glucose 180 H 176 H Assessment and Plan (1) Acute CHF: Status: Acute (2) CHF (congestive heart failure): Status: Acute (3) Atrial fibrillation: Status: Acute (4) Acute on chronic urinary retention: Status: Acute (5) Obstructive uropathy: Status: Acute (6) Acute hypercapnic respiratory failure: Status: Acute (7) Pneumonia: Status: Acute (8) Respiratory failure with hypoxia and hypercapnia: Status: Acute (9) Anasarca: Status: Acute Plan 74 Y M w/ insulin-dependent diabetes mellitus, CAD c/b CHF, paroxysmal atrial fibrillation, prior PE on warfarin, and chronic lymphedema, presenting to ED on 12/14 d/t hypoxia noted by wound care, found to have CT C c/f pulmonary edema and/or pneumonia, admitted to hospitalist for management of CHF; on 12/15, patient increasingly fatigued, ABG demonstrating respiratory acidosis; upon evaluation, patient fatigued, confused and was transferred to ICU for BiPAP, IV diuretics for CHF, Abx for aspiration PNA and precedex for delirium. He was trasnfered back to medical floor on 12/19 and has had protracted recovery. Acuute hypoxic and hypercapneic respiratory failure likely d/t combination CHF, Pneumonia and underlying restrictive lung disease. He required BiPAP in ICU. Acute on chronic CHF was treated with IV diuretics and later discontinued and has been doing well without it at this time and clinically appear euvolemic , but addinng maintainance Lasix of 40 mg daily Pneumonia, suspect aspiration type--He has completed 10 day of Zosyn, he's afebrile, WBC have been normal. He has been using BiPAP nightly with good effect and will need outpatient sleep study, however will obtain overnight sleep study prior to discharge. To continue O2 with goal of O2 90 to 94% Pulmonary toileting including Encentive spirometry use. Patient has been seen by Pulmonology with concern raise about possible Neurmuscular weakness contributing to his respiratory failure as such, he was seen by Neurology had limited EMG done but non diagnostic, additionally a thoraci MRI done--result pending. Neurology is further recommending Voltage-gated calcium remy Ab level to rule Eaton-Lambert syndrome. Ultimately will need Pulmonary rehab. Metabolic Enceaphalopathy d/t hypoxia and resp failurea, resolved. Mild Dehydration, resolved with IVF BMP have been stable Borderline BP, with an episode of SBP of 80 on 12/28 required fluid, BPS have been pretty stable since Dysphagia, associated with encephalopathy Unremarkable Barium study on 12/30 On regular diabetic diet Diabetes Insulin sliding scale POC QID AC Coronary artery disease Antiplatelet, statin DVT/PE Continue warfarin, monitor INR (2-3) Paroxysmal AFib with rvr likely d/t initial hypoxia--now rate controlled. Continue Metoprolol and Cardizem coumadin as above, INR goal 2 to 3 Patient's heart rate has improved. Right eye opthalmic hemrrhage, likely vitreous hemorrhage, no vision loss, appear stable, INR 1.9, will resume couadin cautiously Chronic lymphedema Continue compression Obesity Has had recent successful weight loss QUALITY METRICS - VTE: Warfarin INR 2-3 - CODE STATUS: Full code - DIET: Aspiration precautions anticipate dc later this week, discussed with over the phone Total time managing care of this patient today: 45 minutes. Quality Stroke Does the patient have a stroke diagnosis?: No VTE Prior VTE?: Yes VTE Risk Level:: Medical - moderate - high VTE Device Contraindication: N/A - Device Ordered VTE Drug Contraindication: N/A - Med Ordered
--- NOTE | 2025-01-03 15:26 | MHC.CM.PN ---
Ref updated, CM checked in with pt and to let them know that [facility] now has a bed for [facility], they agreed, auth started.
--- NOTE | 2025-01-03 15:52 | MHC.CLN ---
F/U PO INTAKE REMAINS 75-100% DIET RX: 2000DM DIET RECEIVING ENSURE MAX BID TO PROMOTE WOUND HEALING SUPP PROVIDES 300KCALS, 60G PROTEIN WITH 100% ACCEPTANCE SKIN WITH STAGE III PRESSURE INJURY TO BUTTOCK CONTINUE TO MONITOR PO INTAKE AND ENCOURAGE SUPPLEMENTS
[2025-01-03 17:30] LABS: Glucose, Whole Blood 222 mg/dL (60-115)
[2025-01-03 20:20] LABS: Glucose, Whole Blood 192 mg/dL (60-115)
--- NOTE | 2025-01-03 23:13 | PC.RT ---
placed on overnight oximitry about 10:30 pm on room air. sats 94% rr 16
[2025-01-04] VITALS (8 sets, daily range): BP systolic 102–130; BP diastolic 57–84; PULSE 75–92; RESP 16–24; TEMP 36.2–36.7; O2SAT 88–96
[2025-01-04 04:59] LABS: ABG HCO3 32 mmol/L (22-26); ABG O2 % Saturation 91.0 %
[2025-01-04 07:32] LABS: INTERNATIONAL NORM RATIO 1.6 (0.9-1.1); Prothrombin Time 18.7 SEC (10.9-12.4)
[2025-01-04 07:40] LABS: Glucose, Whole Blood 160 mg/dL (60-115)
[2025-01-04 08:09] LABS: ABG Refer to POC result
[2025-01-04 11:08] LABS: Glucose, Whole Blood 216 mg/dL (60-115)
--- NOTE | 2025-01-04 14:41 | HO.WOUND ---
Wound Consult: Follow up 74 yr old [place] [facility] [place] See progress notes and H&P for detailed history. Wound consult follow up for buttock and bilateral legs. Patient agreeable to assessment and photo documentation. Patient reports continued comfort with bed and setting maintained. He is in the Agility Pulsate bed - with setting to 5bars and 5 min intervals and reports increased comfort. He reports continued mild pain or tenderness to his left buttock. Today he continued to participate in turning and repositioning much more so than in the past with encouragement. 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 The Left buttock appears to have developed slough and is adherent to wound bed. Given the amount of incontinence the patient is experiencing it would not likely be beneficial to switch to Santyl at this time for enzymatic debridement. Topical treatment will continue with Triad at this time and will assess again for tomorrow for D/C plans and if Medihoney application would benefit the left buttock wound bed. The right buttock continues to show improvement, smaller in Diameter and wound bed resurfacing. 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 The Periwound in the photo appears purple in color but in reality the area is more hyperpigmented and appears as Chronic MASD. Patient is continuing with Q2hr turns and repositions. The bilateral legs are continuing to improve no new topical recommendations needed at this time. Inpatient wound care will continue to follow. 12/15/24 On admission 12/22/24 assessment 12/23/24 12/24/24 12/27/24 12/28/24 12/29/24 12/31/24 Recommendations: 1. Turn and Reposition every 2 hours and as needed for patient comfort. Use pillows or wedges to support off loading positions. 2. Off Load all bony prominences with use of pillows and heel boots if needed. Apply Preventative foams where needed. 3. Monitor for incontinence and moisture control, use barrier creams when needed for prevention and treatment. 4. Provide adequate and supplemental nutrition. 5. Order or Continue low air loss mattress. 6. When applicable maintain blood glucose levels per Providers order. Buttocks - Off Load Pressure with Q2 hr turns and use of pillows - Cleanse with PH balance spray or wipes, pat dry. ?Apply thin layer of Triad to wound bed - only pat and dab no scrub and rub when soiling occurs. Reapply thin layer PRN after each episode of incontinence. Bilateral Lower Legs - Cleanse with NS moist gauze, pat dry. Apply Ammonium lactate cream per provider orders. Cover open wound bed with xeroform, ABd pad and gauze wrap. Change Daily while inpatient. Contonue follow up outpt wound care at time of d/c. See prior assessments for details. Inpatient wound care jaycee continue to follow.
[2025-01-04 16:22] LABS: Glucose, Whole Blood 144 mg/dL (60-115)
--- NOTE | 2025-01-04 16:52 | HO.WOUND ---
Wound Consult: Follow up 74 yr old male admitted to [facility] [place] on 12/14/24- See progress notes and H&P for detailed history. Wound consult follow up for buttock and bilateral legs. Patient agreeable to assessment and photo documentation. Patient reports continued comfort with bed and setting maintained. He is in the Agility Pulsate bed - with setting to 5bars and 5 min intervals and reports increased comfort. He reports continued mild pain or tenderness to his left buttock. Today he continued to participate in turning and repositioning much more so than in the past with encouragement. 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 The Left buttock appears to have developed slough and is adherent to wound bed. Given the amount of incontinence the patient is experiencing it would not likely be beneficial to switch to Santyl at this time for enzymatic debridement. Topical treatment will continue with Triad at this time and will assess again for tomorrow for D/C plans and if Medihoney application would benefit the left buttock wound bed. The right buttock continues to show improvement, smaller in Diameter and wound bed resurfacing. 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 The Periwound in the photo appears purple in color but in reality the area is more hyperpigmented and appears as Chronic MASD. Patient is continuing with Q2hr turns and repositions. The bilateral legs are improved and resurfaced at this time - no open wounds noted. Ammonium Lactate applied and no cover dressing needed at this time. Both legs are free of injury at this time - however patients right and some small areas on left lower leg are noted for dark purple pigmentation changes - - slow to carolyn to leg but not consistent with pressure injury despite coloring. Patient and significant other discussed benefits Compression garments will have on him when he is discharged to rehab. His significant other was advised to bring compression into facility since he will have alot more movement once discharged to acute rehab - they report understanding. Inpatient wound care will continue to follow. Right Leg Left Leg 12/15/24 On admission 12/22/24 assessment 12/23/24 12/24/24 12/27/24 12/28/24 12/29/24 12/31/24 01/04/25 Recommendations: 1. Turn and Reposition every 2 hours and as needed for patient comfort. Use pillows or wedges to support off loading positions. 2. Off Load all bony prominences with use of pillows and heel boots if needed. Apply Preventative foams where needed. 3. Monitor for incontinence and moisture control, use barrier creams when needed for prevention and treatment. 4. Provide adequate and supplemental nutrition. 5. Order or Continue low air loss mattress. 6. When applicable maintain blood glucose levels per Providers order. Buttocks - Off Load Pressure with Q2 hr turns and use of pillows - Cleanse with PH balance spray or wipes, pat dry. ?Apply thin layer of Triad to wound bed - only pat and dab no scrub and rub when soiling occurs. Reapply thin layer PRN after each episode of incontinence. Bilateral Lower Legs - Apply Ammonium lactate cream per provider orders. May Leave PEGGY. See prior assessments for details. Inpatient wound care jaycee continue to follow.
--- NOTE | 2025-01-04 18:12 | HO.PM.IMPN ---
Subjective Subjective Date of Service: 01/04/25 Interval History: Looks much improved today compared to yesterday. Patient remains on NC O2 2 L Denies dyspnea, diaphoresis, coughing. Has been using BiPAP overnight for about 4 hours at a time. Discussed the patient's case with his by bedside extensively. Plan is for discharge to short-term rehabilitation, follow up on voltage gated calcium channel antibody test in the outpatient setting. Will require outpatient oxygen and BiPAP support for the interim. Neurology and pulmonology we will continue following the patient in the outpatient setting. Review of Systems Review of Systems: Yes all other systems are reviewed and are negative Physical Exam Exam: Exam: General: A&O x3, oriented to time place person and situation, comfortable, no pain. Significant thoracocervical kyphosis. Cardiac: S1, S2 auscultated with no S3/4, no MRG. Well perfused. Respiratory: dimished breathsounds bilaterally in all lung zones, predominantly bibasilarly. No end expiratory wheezing. On 2 L NC GI/ : No abdominal pain on palpation, no masses or distentions. MSK: Normal ambulation without pain at bony prominences or musculature. Lower extremities: No LE edema, with significant evidence of lipodermatosclerosis and dry skin. Neurological: Normal neurological examination on overview, without obvious CN II-XII abnormalities. Vital Signs: Vital Signs: Last Vital Signs Temp 97.5 F 01/04/25 15:24 Pulse 92 01/04/25 15:24 Resp 18 01/04/25 15:24 BP 128/84 01/04/25 15:24 Pulse Ox 94 01/04/25 15:24 O2 Del Method Nasal Cannula 01/04/25 15:24 O2 Flow Rate 1 01/04/25 15:24 FiO2 40 12/28/24 23:50 Oxygen Flow Rate 4 12/14/24 10:24 BMI result Body Mass Index 31.1 Objective Data Active Medications Acetaminophen (Acetaminophen 325 Mg Tablet) 650 mg PO Q6H PRN PRN Reason: Pain, Mild 1-3,fever,headache Last Admin: 12/28/24 05:45 Dose: 650 mg Documented By: BHAVYA Aspirin (Aspirin 81 Mg Tab.Chew) 81 mg PO DAILY JOY Last Admin: 01/04/25 08:07 Dose: 81 mg Documented By: JACK Atorvastatin Calcium (Atorvastatin Calcium 40 Mg Tablet) 40 mg PO BEDTIME [facility] Last Admin: 01/03/25 20:51 Dose: 40 mg Documented By: CARMENCITA Dextrose (Dextrose 50 % 25 Gm/50 Ml Syringe) 25 gm IVPUSH Q15M PRN; Protocol PRN Reason: per Hypoglycemia Standing Ord. Glucose (Glucose Gel 15 Gm Gel..Gram.) 15 gm PO Q15M PRN; Protocol PRN Reason: per Hypoglycemia Standing Ord. Insulin Human Lispro (Insulin Lispro 100 Unit/Ml 3 Ml Vial) 0 [facility]; Protocol Last Admin: 01/04/25 16:46 Dose: Not Given Documented By: JACK Non-Admin Reason: No Insulin Coverage Lactic Acid (Ammonium Lactate 12 % Cream 140 Gm Tube) 1 appl TOPICAL DAILY PRN; Protocol PRN Reason: Dry Skin Last Admin: 12/29/24 11:35 Dose: 1 appl Documented By: DEE Metoprolol Tartrate (Metoprolol Tartrate 50 Mg Tablet) 50 mg PO BID [facility]; Protocol Last Admin: 01/04/25 08:07 Dose: 50 mg Documented By: JACK Olanzapine (Olanzapine 10 Mg Vial) 5 mg IM DAILY PRN PRN Reason: Agitation Last Admin: 12/24/24 00:11 Dose: 5 mg Documented By: GENA Sodium Chloride (0.9 % Sodium Chloride Flush 3 Ml Syringe) 3 ml IVFLUSH [facility] Last Admin: 01/04/25 16:48 Dose: Not Given Documented By: JACK Non-Admin Reason: Previously Administered Warfarin Sodium (Warfarin Sodium 5 Mg Tablet) 5 mg PO SUMOWEFRSA@1800 [facility] Last Admin: 01/03/25 17:39 Dose: 5 mg Documented By: SHERYL Warfarin Sodium (Warfarin Sodium 3 Mg Tablet) 3 mg PO TUTH@1800 [facility] On Hold: 01/04/25 08:57 Resume: 01/05/25 06:00 Comment: HOLD 3MG - STARTING 5MG ONE TIME DOSE FOR 01/04 Last Admin: 12/30/24 17:43 Dose: 3 mg Documented By: CASEA Labs 12/29/24 07:14 12/29/24 07:14 Labs: Laboratory Results - last 24 hr 01/03/25 01/04/25 01/04/25 20:14 04:55 06:19 Hold Purple Top SEE NOTE PT 18.7 H INR 1.6 H O2 Saturation 91.0 ABG pH at Pt Temp 7.44 ABG pCO2 at Pt Temp 47 H ABG pO2 at Pt Temp 65 L ABG HCO3 32 H ABG Base Excess (Actual) 7.7 POC Glucose 192 H 01/04/25 01/04/25 01/04/25 07:37 11:05 16:18 Hold Purple Top PT INR O2 Saturation ABG pH at Pt Temp ABG pCO2 at Pt Temp ABG pO2 at Pt Temp ABG HCO3 ABG Base Excess (Actual) POC Glucose 160 H 216 H 144 H Assessment and Plan (1) Acute CHF: Status: Acute (2) Atrial fibrillation: Status: Acute (3) Hypomagnesemia: Status: Acute (4) Dehydration: Status: Acute (5) Acute on chronic urinary retention: Status: Acute (6) Obstructive uropathy: Status: Acute (7) Acute hypercapnic respiratory failure: Status: Acute (8) Pneumonia: Status: Acute (9) Respiratory failure with hypoxia and hypercapnia: Status: Acute (10) Chronic restrictive lung disease: Status: Acute (11) Atelectasis of both lungs: Status: Acute (12) KIRILL (obstructive sleep apnea): Status: Acute (13) Anasarca: Status: Acute (14) Generalized weakness: Status: Acute Plan 74 Y M w/ insulin-dependent diabetes mellitus, CAD c/b CHF, paroxysmal atrial fibrillation, prior PE on warfarin, and chronic lymphedema, presenting to ED on 12/14 d/t hypoxia noted by wound care, found to have CT C c/f pulmonary edema and/or pneumonia, admitted to hospitalist for management of CHF; on 12/15, patient increasingly fatigued, ABG demonstrating respiratory acidosis; upon evaluation, patient fatigued, confused and was transferred to ICU for BiPAP, IV diuretics for CHF, Abx for aspiration PNA and precedex for delirium. He was trasnfered back to medical floor on 12/19 and has had protracted recovery. Acute hypoxic and hypercapneic respiratory failure - Multifactorial - Acute exacerbation of CHF - Aspiration pneumonia - Restrictive lung disease secondary to severe cervical kyphosis He required BiPAP in ICU. Acute on chronic CHF was treated with IV diuretics and later discontinued and has been doing well without it at this time and clinically appear euvolemic , but addinng maintainance Lasix of 40 mg daily Pneumonia, suspect aspiration type--He has completed 10 day of Zosyn, he's afebrile, WBC have been normal. He has been using BiPAP nightly with good effect and will need outpatient sleep study, however will obtain overnight sleep study prior to discharge. To continue O2 with goal of O2 90 to 94% Pulmonary toileting including Encentive spirometry use. Patient has been seen by Pulmonology with concern raise about possible Neurmuscular weakness contributing to his respiratory failure as such, he was seen by Neurology had limited EMG done but non diagnostic, Neurology is further recommending Voltage-gated calcium remy Ab level to rule Eaton-Lambert syndrome; sent 01/03. Ultimately will need Pulmonary rehab. Cervical spinal stenosis Cervical neuroforaminal stenosis MRI cervical spine revealing most notably moderate to severe spinal stenosis with severe foraminal narrowing at the C5-C6 spine. Otherwise remainder of spine C2 to C5 and C6-C7 revealing [id number] spinal and bilateral foraminal narrowing. No other concerning findings. Neurosurgery consultation in the outpatient setting post discharge Metabolic Enceaphalopathy d/t hypoxia and resp failurea, resolved. Mild Dehydration, resolved with IVF BMP have been stable Borderline BP, with an episode of SBP of 80 on 12/28 required fluid, BPS have been pretty stable since Dysphagia, associated with encephalopathy Unremarkable Barium study on 12/30 On regular diabetic diet Diabetes Insulin sliding scale POC QID AC Coronary artery disease Antiplatelet, statin DVT/PE Continue warfarin, monitor INR (2-3) Paroxysmal AFib with rvr likely d/t initial hypoxia--now rate controlled. Continue Metoprolol and Cardizem coumadin as above, INR goal 2 to 3 Patient's heart rate has improved. Right eye ophthalmic hemorrhage, likely vitreous hemorrhage, no vision loss, appear stable, INR 1.9, will resume couadin cautiously Chronic Lymphedema Continue compression Obesity Has had recent successful weight loss [employer] - VTE: Warfarin INR 2-3 - CODE STATUS: Full code - DIET: Aspiration precautions - DISPO: CLEARED FOR DISCHARGE TO SHORT-TERM REHABILITATION, WITH CLOSE FOLLOW UP BY NEUROLOGY, PULMONOLOGY Total time managing care of this patient today: 45 minutes. Quality Stroke Does the patient have a stroke diagnosis?: No VTE Prior VTE?: Yes VTE Risk Level:: Medical - moderate - high VTE Device Contraindication: N/A - Device Ordered VTE Drug Contraindication: N/A - Med Ordered
--- NOTE | 2025-01-04 19:30 | PC.NURSE ---
Patient continues to have multiple loose bowel movements, reposition q2H, patient on 1L NC. Open wound to buttocks, open to air, triad applied. Dressing to bilateral lower extremities removed, wounds healed, per wound nurse no new dressing applied. Continue application of ammonium lactate, leave open to air.
[2025-01-04 21:12] LABS: Glucose, Whole Blood 244 mg/dL (60-115)
[2025-01-05] VITALS: BP 98/57; PULSE 84; RESP 16; TEMP 36.7; O2SAT 99
[2025-01-05] MEDS: 0.9 % Sodium Chloride Flush 3 ML SYRINGE IVFLUSH ×2 (01:07→08:16)
[2025-01-05 03:00] VITALS: PULSE 84; RESP 16; O2SAT 100
[2025-01-05 03:45] VITALS: BP 92/56; PULSE 77; RESP 16; TEMP 36.8; O2SAT 99
[2025-01-05 06:40] LABS: INTERNATIONAL NORM RATIO 1.5 (0.9-1.1); Prothrombin Time 17.7 SEC (10.9-12.4)
[2025-01-05 07:50] VITALS: BP 120/75; PULSE 88; RESP 20; TEMP 36.1; O2SAT 94
[2025-01-05 07:57] LABS: Glucose, Whole Blood 176 mg/dL (60-115)
--- NOTE | 2025-01-05 10:51 | MHC.CM.PN ---
Second IMM 01/05/25, Pt has been medically cleared to DC, he will go to [facility] this afternoon via BLS.
--- NOTE | 2025-01-05 11:46 | MHC.CLN ---
F/U PO INTAKE CONTINUES TO BE EXCELLENT 100% DIET RX: 2000DM DIET RECEIVING ENSURE MAX BID TO PROMOTE WOUND HEALING SUPP PROVIDES 300KCALS, 60G PROTEIN WITH 100% ACCEPTANCE CONTINUE TO MONITOR PO INTAKE AND ENCOURAGE SUPPLEMENTS
[2025-01-05 11:50] VITALS: BP 114/65; PULSE 80; RESP 20; TEMP 36.6; O2SAT 95
[2025-01-05 12:18] LABS: Glucose, Whole Blood 195 mg/dL (60-115)
--- NOTE | 2025-01-05 13:10 | PM.DS ---
DS: Providers Provider Date of Service: 01/05/25 Date of admission: 12/14/24 14:53 Date of discharge: 01/05/25 Primary care physician: Katie Gaytan MD Consults: 12/14/24 18:18 Consult to Wound Care Routine Reason for consultation: See skin assessment 12/23/24 11:43 Consult to Cardiology Routine Consulting Provider: [facility] Reason for consultation: afib RVR, CHF exacerbation 12/30/24 08:17 Consult to Pulmonology Routine Consulting Provider: [facility] Reason for consultation: Respiratory failure, atelectasis Has provider been notified: No 12/31/24 09:59 Consult to Neurology Routine Consulting Provider: [facility] Reason for consultation: Neurolmuscular weakness from hospitalization Attending physician on discharge: Frankie Tolentino DS: Diagnosis Discharge Diagnosis (1) Acute CHF: Status: Acute (2) Atrial fibrillation: Status: Acute (3) Hypomagnesemia: Status: Acute (4) Dehydration: Status: Acute (5) Acute on chronic urinary retention: Status: Acute (6) Obstructive uropathy: Status: Acute (7) Acute hypercapnic respiratory failure: Status: Acute (8) Pneumonia: Status: Acute (9) Respiratory failure with hypoxia and hypercapnia: Status: Acute (10) Chronic restrictive lung disease: Status: Acute (11) Atelectasis of both lungs: Status: Acute (12) KIRILL (obstructive sleep apnea): Status: Acute (13) Anasarca: Status: Acute (14) Generalized weakness: Status: Acute DS: Summary Hospital Course Hospital Course: 74 Y M w/ insulin-dependent diabetes mellitus, CAD c/b CHF, paroxysmal atrial fibrillation, prior PE on warfarin, and chronic lymphedema, presenting to ED on 12/14 d/t hypoxia noted by wound care, found to have CT C c/f pulmonary edema and/or pneumonia, admitted to hospitalist for management of CHF; on 12/15, patient increasingly fatigued, ABG demonstrating respiratory acidosis; upon evaluation, patient fatigued, confused and was transferred to ICU for BiPAP, IV diuretics for CHF, Abx for aspiration PNA and precedex for delirium. He was trasnfered back to medical floor on 12/19 and has had protracted recovery. Acute hypoxic and hypercapneic respiratory failure - Multifactorial - Acute exacerbation of CHF - Aspiration pneumonia - Restrictive lung disease secondary to severe cervical kyphosis He required BiPAP in ICU. Acute on chronic CHF was treated with IV diuretics and later discontinued and has been doing well without it at this time and clinically appear euvolemic. Currently has maintainance Lasix of 40 mg daily Pneumonia, suspect aspiration type--He has completed 10 day of Zosyn, he's afebrile, WBC have been normal. He has been using BiPAP nightly with good effect and will need outpatient sleep study, Will need outpatient Sleep Study for further delination for need of continued BiPAP To continue O2 with goal of O2 90 to 94% Pulmonary toileting including incentive spirometry use. Patient has been seen by Pulmonology with concern raise about possible Neurmuscular weakness contributing to his respiratory failure as such, he was seen by Neurology had limited EMG done but non diagnostic, Neurology is further recommending Voltage-gated calcium remy Ab level to rule Eaton-Lambert syndrome; sent 01/03. Ultimately will need Pulmonary rehab. RECOMMENDATIONS - outpatient sleep study - follow up on voltage gated calcium channel antibody level - BiPAP nightly - nocturnal oxygen use with intermittent use in daytime - outpatient pulmonology Paroxysmal AFib with RVR Chronic DVT/PE Right eye vitreous hemorrhage, without vision loss AFib RVR likely multifactorial in the setting of d/t initial hypoxia--now rate controlled. Continue Metoprolol and Cardizem Patient's heart rate has improved. Patient has been on warfarin for many years (20+), with regular INR checks. He has endorsed challenges with maintaining stable INR values, usually subtherapeutic or supratherapeutic levels. Over the past 3 days, the patient has been subtherapeutic with INR. No contraindication for discontinuation of warfarin and transition to DOAC. Discussed with patient and patient's in depth by bedside. Decision to discontinue warfarin and transitioned the patient to apixaban today was made. RECOMMENDATIONS - discontinue warfarin - start apixaban 5 mg b.i.d. p.o. - monitor INR for the next 2-3 days to ensure no supratherapeutic level - continue diltiazem - continue metoprolol Cervical spinal stenosis Cervical neuroforaminal stenosis MRI cervical spine revealing most notably moderate to severe spinal stenosis with severe foraminal narrowing at the C5-C6 spine. Otherwise remainder of spine C2 to C5 and C6-C7 revealing [id number] spinal and bilateral foraminal narrowing. No other concerning findings. Neurosurgery consultation in the outpatient setting post discharge Metabolic Enceaphalopathy 2/2 hypoxia, hypercarbia and respiratory failure. Also encephalopathy likely 2/2 ICU delirium. Status at Discharge Functional status at discharge: uses cane/walker Overall status at discharge: patient is progressing back to baseline Time Attestation Total time managing care of this patient today: 60 mintues. Discharge Coordination Time (in mins): 35 Quality: Safe Use of Opioids Does Pt have an Active Cancer Diagnosis on the Problem List?: No Quality: Stroke Does the patient have a stroke diagnosis?: No Physical Exam Exam: Exam: General: A&O x3, oriented to time place person and situation, comfortable, no pain. Significant thoracocervical kyphosis. Cardiac: S1, S2 auscultated with no S3/4, no MRG. Well perfused. Regularly regular Respiratory: dimished breath sounds bilaterally in all lung zones, predominantly bibasilarly. No end expiratory wheezing. On 2 L NC GI/ : No abdominal pain on palpation, no masses or distentions. MSK: Normal ambulation without pain at bony prominences or musculature. Lower extremities: No LE edema, with significant evidence of lipodermatosclerosis and dry skin. Neurological: Normal neurological examination on overview, without obvious CN II-XII abnormalities. Vital Signs: Vital Signs: Last Vital Signs Temp 97.9 F 01/05/25 11:50 Pulse 80 01/05/25 11:50 Resp 20 01/05/25 11:50 BP 114/65 01/05/25 11:50 Pulse Ox 95 01/05/25 11:50 O2 Del Method Nasal Cannula 01/05/25 11:50 O2 Flow Rate 1 01/05/25 11:50 FiO2 40 12/28/24 23:50 Oxygen Flow Rate 4 12/14/24 10:24 BMI result Body Mass Index 31.1 DS: Data Data Completed and Pending Labs on day of discharge: Laboratory Results - last 24 hr 01/04/25 01/04/25 01/05/25 16:18 21:05 06:05 Hold Purple Top SEE NOTE PT 17.7 H INR 1.5 H POC Glucose 144 H 244 H 01/05/25 01/05/25 07:45 11:49 Hold Purple Top PT INR POC Glucose 176 H 195 H Discharge Plan Discharge Anticipated Discharge Date/Time: 01/05/25 14:34 Patient Disposition: Xfer Inpatient Rehab Fac Discharge Diagnosis: Acute multifactorial hypoxic hypercarbic respiratory failure Referrals: Katie Gaytan MD [Primary Care Provider, Medical] - 1 Week Discharge Medications: New metoprolol tartrate 50 mg Tablet 50 mg PO BID 30 Days Qty: 60 0RF Protocol: Hold for SBP/HR < HOLD for SBP < : 90 HOLD for HR < : 60 Eliquis 5 mg Tablet 5 mg PO BID 30 Days Qty: 60 0RF Continued tamsulosin 0.4 mg capsule 0.4 mg PO BEDTIME 90 Days Qty: 90 4RF silver sulfadiazine 1 % cream 1 appl topical DAILY PRN (Reason: Wound Care) ammonium lactate 12 % cream 1 appl topical DAILY PRN (Reason: Wound Care) (DME) V-GO 20 Device MISCELLANEOUS furosemide 20 mg tablet 20 mg PO DAILY Qty: 30 0RF (DME) FreeStyle Pat 2 Grawn Misc See Rx Instructions .ROUTE .MEDSUPPLY Qty: 1 Rx Instructions: As directed (DME) FreeStyle Pat 2 Sensor Kit See Rx Instructions .ROUTE .MEDSUPPLY Qty: 1 Rx Instructions: As directed metformin 500 mg tablet extended release 24 hr 500 mg PO BID diltiazem HCl 120 mg tablet 120 mg PO DAILY aspirin [Adult Aspirin Regimen] 81 mg tablet,delayed release (DR/EC) 81 mg PO DAILY atorvastatin 40 mg tablet 40 mg PO BEDTIME insulin lispro [Humalog U-100 Insulin] 100 unit/mL solution See Rx Instructions .ROUTE .COMPLEX Rx Instructions: Vego 20 insulin pump; pt changes/injects Q36H, unsure how much he injects at this time. folic acid 1 mg tablet 1 mg PO DAILY@1200 Discontinued finasteride 5 mg tablet 5 mg PO DAILY 90 Days Qty: 90 4RF warfarin 5 mg tablet 5 mg PO SUMOWEFRSA@1800 Rx Instructions: PT unsure the last dose of his Warfarin he took and dose he took. warfarin 5 mg tablet 2.5 mg PO TUTH@1800 metoprolol tartrate 100 mg tablet 150 mg PO BID@0900,1700 Protocol: Hold for SBP/HR < HOLD for SBP < : 90 HOLD for HR < : 60 Trulicity 1.5 mg/0.5 mL pen injector 1.5 mg subcut TH@0900 Discharge Orders: Discharge Order (Routine); Ordered 01/05/25 Ordered By: Frankie Tolentino Diet: Advance to usual diet Activity on Discharge: As tolerated Stand Alone Forms: Patient Portal Discharge page Print Language: Albanian Activity Restrictions/Additional Instructions: Topical Wound Care Recommendations: 1. Turn and Reposition every 2 hours and as needed for patient comfort. Use pillows or wedges to support off loading positions. Limit un-interrupted sitting times to 1-2 hours increments. 2. Off Load all bony prominences with use of pillows and heel boots if needed. Apply Preventative foams where needed. 3. Monitor for incontinence and moisture control, use barrier creams when needed for prevention and treatment. Frequent assessments as patient is not able to report all times of incontinence. 4. Provide adequate and supplemental nutrition. 5. Would recommend specialty support surface for continued skin health such as low air loss mattress. 6. When applicable maintain blood glucose levels per Providers order. Buttocks - Off Load Pressure with Q2 hr turns and use of pillows - Cleanse with PH balance spray or wipes, pat dry. ?Apply thin layer of Triad to wound bed - only pat and dab no scrub and rub when soiling occurs. Reapply thin layer PRN after each episode of incontinence. Bilateral Lower Legs - Cleanse with NS moist gauze, pat dry. Apply Ammonium lactate cream per provider orders. Cover open wound bed with xeroform, ABd pad and gauze wrap. Change Daily while inpatient. Continue follow up outpt wound care at time of d/c. Care Plan Goals: As above Health Concerns: - pulmonary rehabilitation - BiPAP continue for the next 2 weeks - reassess need for BiPAP with sleep study in outpatient setting - continue nocturnal oxygen and p.r.n. daytime oxygen - follow up INR for the next 2-3 days to ensure no supratherapeutic level - continue apixaban 5 mg twice a day - discontinue warfarin - monitor for signs and symptoms of bleeding - monitor daily weights and intake/output Plan of Treatment: - pulmonary rehabilitation - BiPAP continue for the next 2 weeks - reassess need for BiPAP with sleep study in outpatient setting - continue nocturnal oxygen and p.r.n. daytime oxygen - follow up INR for the next 2-3 days to ensure no supratherapeutic level - continue apixaban 5 mg twice a day - discontinue warfarin - monitor for signs and symptoms of bleeding - monitor daily weights and intake/output - follow up on voltage gated calcium channel antibody in outpatient setting - follow up with primary care provider within 1 week of discharge - follow up outpatient pulmonology - follow up outpatient Cardiology Assessment: Currently hemodynamically stable, with slow recovery. No acute issues warranting current inpatient admission. Shared decision-making to discharge patient to outpatient setting with pulmonary rehab and STR
--- NOTE | 2025-01-05 15:16 | HO.WOUND ---
Wound Consult: Follow up 74 yr old male admitted [place] [facility] [place]- See progress notes and H&P for detailed history. Wound consult follow up for buttock and bilateral legs. Patient agreeable to assessment and photo documentation. Patient reports continued comfort with bed and setting maintained. He is in the Agility Pulsate bed - with setting to 5bars and 5 min intervals and reports increased comfort. He reports continued mild pain or tenderness to his left buttock. Today he continued to participate in turning and repositioning much more so than in the past with encouragement. 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 The wound beds appears to have developed slough and is adherent to wound bed. Given the amount of loose stool incontinence the patient is experiencing it would not likely be beneficial to switch to Santyl at this time for enzymatic debridement. Topical treatment will continue with Triad at this time and todays assessment was for other options and given incontinence level Medihoney is not an option as he would need a cover dressing and at this time given the close proximity to his anus a cover dressing will likely trap stool. Recommendation continues to be optimize nutrition, increase physical / mobility and continue triad topically. The Periwound is hyperpigmented and light purple consistent with Chronic MASD and no pressure related. Patient is continuing with Q2hr turns and repositions. The bilateral legs are improved and resurfaced at this time - no open wounds noted. Ammonium Lactate applied and no cover dressing needed at this time. Both legs are free of injury at this time - however patients legs are noted for dark purple pigmentation changes - slow to carolyn to leg but not consistent with pressure injury despite coloring. Patient and significant other discussed benefits Compression garments will have on him when he is discharged to rehab. His significant other was advised to bring compression into facility since he will have a lot more movement once discharged to acute rehab - they report understanding. Inpatient wound care will continue to follow while inpatient at [facility]. Right Leg 01/04/25 Left Leg 01/04/25 12/15/24 On admission 12/31/24 01/04/25 01/05/25 Recommendations: 1. Turn and Reposition every 2 hours and as needed for patient comfort. Use pillows or wedges to support off loading positions. 2. Off Load all bony prominences with use of pillows and heel boots if needed. Apply Preventative foams where needed. 3. Monitor for incontinence and moisture control, use barrier creams when needed for prevention and treatment. 4. Provide adequate and supplemental nutrition. 5. Order or Continue low air loss mattress. 6. When applicable maintain blood glucose levels per Providers order. Buttocks - Off Load Pressure with Q2 hr turns and use of pillows - Cleanse with PH balance spray or wipes, pat dry. ?Apply thin layer of Triad to wound bed - only pat and dab no scrub and rub when soiling occurs. Reapply thin layer PRN after each episode of incontinence. May apply foam as cover dressing if not trapping stool. Bilateral Lower Legs - Apply Ammonium lactate cream per provider orders. May Leave WINDOWS SYSTEM ADMIN. See prior assessments for details. Inpatient wound care will continue to follow.
[2025-01-05 15:18] VITALS: BP 107/69; PULSE 100; RESP 20; TEMP 36.4; O2SAT 93
[2025-01-07 16:04] LABS: Voltage-Gated Ca Ab Type P/Q <30 pmol/L (<30)
== END 2025-01-05 16:00 | DRG 291 ==
LOC: HO.ED 13:46 → HO.EDOVER 15:01 → HO.IMC 15:32 → HO.ICU 12-15 14:10 → HO.IMC 12-19 13:54
PROVIDERS: Hospitalist; Internal Medicine; Internal Medicine Critical Care Medicine; Nurse Practitioner Family; Admitting Provider Internal Medicine; Emergency Provider Emergency Medicine Emergency Medical Services; PCP Internal Medicine; Visit Provider Hospitalist
DX: I50.33 Acute on chronic diastolic (congestive) heart failure (principal); G92.8 Other toxic encephalopathy; J96.01 Acute respiratory failure with hypoxia; L89.313 Pressure ulcer of right buttock, stage 3; J96.02 Acute respiratory failure with hypercapnia; J69.0 Pneumonitis due to inhalation of food and vomit; F05 Delirium due to known physiological condition; I25.10 Atherosclerotic heart disease of native coronary artery without angina pectoris; I48.0 Paroxysmal atrial fibrillation; I89.0 Lymphedema, not elsewhere classified; I87.8 Other specified disorders of veins; E11.9 Type 2 diabetes mellitus without complications; I95.9 Hypotension, unspecified; E86.0 Dehydration; M40.202 Unspecified kyphosis, cervical region; H43.11 Vitreous hemorrhage, right eye; R13.10 Dysphagia, unspecified; M48.02 Spinal stenosis, cervical region; R79.1 Abnormal coagulation profile; E66.9 Obesity, unspecified; Z68.31 Body mass index [BMI] 31.0-31.9, adult; Z20.822 Contact with and (suspected) exposure to COVID-19; Z86.711 Personal history of pulmonary embolism; Z86.718 Personal history of other venous thrombosis and embolism; Z79.4 Long term (current) use of insulin; Z79.82 Long term (current) use of aspirin; Z79.84 Long term (current) use of oral hypoglycemic drugs; Z79.899 Other long term (current) drug therapy
CPT/HCPCS: 36415; 36600; 71045; 71250; 71275; 72125; 72141; 74220; 80048; 80053; 80162; 82040; 82607; 82746; 82803; 82947; 83605; 83735; 83880; 84100; 84484; 85025; 85027; 85610; 86596; 87040; 87493; 87507; 87635; 92526; 92610; 93005; 93306; 94640; 94660; 95911; 95912; 97110; 97163; 97530; 99285; J0616; J0696; J1120; J1163; J1271; J1938; J2359; J2405; J2543; J3010; J3475; J7120; P9047; Q9957; Q9967

== ENCOUNTER → 2024-12-14 11:32 | Outpatient (BNV) | payer MEDICARE, SELFPAY | PROVIDERS: Emergency Provider Emergency Medicine Emergency Medical Services; PCP Internal Medicine; Visit Provider Radiology Diagnostic Radiology | DX: R06.02 Shortness of breath (principal) | CPT/HCPCS: 71045 ==

== ENCOUNTER → 2024-12-14 13:05 | Outpatient (BNV) | payer MEDICARE, SELFPAY | PROVIDERS: Admitting Provider Internal Medicine; Emergency Provider Emergency Medicine Emergency Medical Services; PCP Internal Medicine; Visit Provider Internal Medicine | DX: I48.91 Unspecified atrial fibrillation (principal) | CPT/HCPCS: 93010 ==

== ENCOUNTER 2024-12-14 14:53 | Outpatient (BNV) | payer MEDICARE, SELFPAY | END 2024-12-21 05:37 | PROVIDERS: Admitting Provider Internal Medicine; Emergency Provider Emergency Medicine Emergency Medical Services; PCP Internal Medicine; Visit Provider Radiology Vascular & Interventional Radiology | DX: R09.02 Hypoxemia (principal) | CPT/HCPCS: 71045; 71275 ==

== ENCOUNTER 2024-12-14 14:53 | Outpatient (BNV) | payer MEDICARE, SELFPAY | END 2024-12-27 14:30 | PROVIDERS: Admitting Provider Internal Medicine; Emergency Provider Emergency Medicine Emergency Medical Services; PCP Internal Medicine; Visit Provider Radiology Diagnostic Radiology | DX: J98.6 Disorders of diaphragm (principal); R91.8 Other nonspecific abnormal finding of lung field | CPT/HCPCS: 71045 ==

== ENCOUNTER 2024-12-14 14:53 | Outpatient (BNV) | payer MEDICARE, SELFPAY | END 2024-12-15 10:24 | PROVIDERS: Admitting Provider Internal Medicine; Emergency Provider Emergency Medicine Emergency Medical Services; PCP Internal Medicine; Visit Provider Radiology Diagnostic Radiology | DX: R09.02 Hypoxemia (principal); I51.7 Cardiomegaly; R91.8 Other nonspecific abnormal finding of lung field | CPT/HCPCS: 71250 ==

== ENCOUNTER 2024-12-14 14:53 | Outpatient (BNV) | payer MEDICARE, SELFPAY | END 2024-12-20 11:00 | PROVIDERS: Admitting Provider Internal Medicine; Emergency Provider Emergency Medicine Emergency Medical Services; PCP Internal Medicine; Visit Provider Radiology Diagnostic Radiology | DX: J18.8 Other pneumonia, unspecified organism (principal) | CPT/HCPCS: 71045; 72125 ==

== ENCOUNTER 2024-12-14 14:53 | Outpatient (BNV) | payer MEDICARE, SELFPAY | END 2024-12-30 14:58 | PROVIDERS: Admitting Provider Internal Medicine; Emergency Provider Emergency Medicine Emergency Medical Services; PCP Internal Medicine; Visit Provider Radiology Diagnostic Radiology | DX: J69.0 Pneumonitis due to inhalation of food and vomit (principal) | CPT/HCPCS: 74220 ==

== ENCOUNTER 2024-12-14 14:53 | Outpatient (BNV) | payer MEDICARE, SELFPAY | END 2024-12-28 16:26 | PROVIDERS: Admitting Provider Internal Medicine; Emergency Provider Emergency Medicine Emergency Medical Services; PCP Internal Medicine; Visit Provider Radiology Diagnostic Radiology | DX: R91.8 Other nonspecific abnormal finding of lung field (principal); I51.7 Cardiomegaly; J98.6 Disorders of diaphragm | CPT/HCPCS: 71045 ==

== ENCOUNTER 2024-12-14 14:53 | Outpatient (BNV) | payer MEDICARE, SELFPAY | END 2024-12-31 14:00 | PROVIDERS: Admitting Provider Internal Medicine; Emergency Provider Emergency Medicine Emergency Medical Services; PCP Internal Medicine; Visit Provider Psychiatry & Neurology Neurology | DX: R53.1 Weakness (principal) | CPT/HCPCS: 95910 ==

== ENCOUNTER 2024-12-14 14:53 | Outpatient (BNV) | payer MEDICARE, SELFPAY | END 2025-01-03 14:31 | PROVIDERS: Admitting Provider Internal Medicine; Emergency Provider Emergency Medicine Emergency Medical Services; PCP Internal Medicine; Visit Provider Radiology Diagnostic Radiology | DX: M99.61 Osseous and subluxation stenosis of intervertebral foramina of cervical region (principal) | CPT/HCPCS: 72141 ==

== ENCOUNTER → 2024-12-14 14:53 | Outpatient (BNV) | payer MEDICARE, SELFPAY | PROVIDERS: Admitting Provider Internal Medicine; Emergency Provider Emergency Medicine Emergency Medical Services; PCP Internal Medicine; Visit Provider Psychiatry & Neurology Neurology | DX: R53.1 Weakness (principal) | CPT/HCPCS: 99222 ==

== ENCOUNTER → 2024-12-14 14:53 | Outpatient (BNV) | payer MEDICARE, SELFPAY | PROVIDERS: Admitting Provider Internal Medicine; Emergency Provider Emergency Medicine Emergency Medical Services; PCP Internal Medicine; Visit Provider Internal Medicine Critical Care Medicine | DX: I50.9 Heart failure, unspecified (principal); J96.91 Respiratory failure, unspecified with hypoxia; J96.92 Respiratory failure, unspecified with hypercapnia; J18.9 Pneumonia, unspecified organism | CPT/HCPCS: 99291; 99499 ==

== ENCOUNTER → 2024-12-14 14:53 | Outpatient (BNV) | payer MEDICARE, SELFPAY | PROVIDERS: Admitting Provider Internal Medicine; Emergency Provider Emergency Medicine Emergency Medical Services; PCP Internal Medicine; Visit Provider Internal Medicine Cardiovascular Disease | DX: I50.9 Heart failure, unspecified (principal); I48.91 Unspecified atrial fibrillation | CPT/HCPCS: 99223 ==

== ENCOUNTER → 2024-12-14 14:53 | Outpatient (BNV) | payer MEDICARE, SELFPAY | PROVIDERS: Admitting Provider Internal Medicine; Emergency Provider Emergency Medicine Emergency Medical Services; PCP Internal Medicine; Visit Provider Hospitalist | DX: G47.33 Obstructive sleep apnea (adult) (pediatric) (principal); J98.4 Other disorders of lung; J98.11 Atelectasis; I48.91 Unspecified atrial fibrillation; I50.9 Heart failure, unspecified; J96.02 Acute respiratory failure with hypercapnia | CPT/HCPCS: 99223 ==

== ENCOUNTER → 2024-12-14 14:53 | Outpatient (BNV) | payer MEDICARE, SELFPAY | PROVIDERS: Admitting Provider Internal Medicine; Emergency Provider Emergency Medicine Emergency Medical Services; PCP Internal Medicine; Visit Provider Internal Medicine | DX: I50.9 Heart failure, unspecified (principal) | CPT/HCPCS: 99223; 99233; 99499 ==

== ENCOUNTER 2025-01-06 05:47 | Outpatient (REF) | payer MEDICARE, SELFPAY ==
--- OUTSIDE RECORDS SUMMARY | 2024-12-31 04:30 | XMS_ITS ---
Author Organization [facility] Address [address] [address] Care Team Providers Care International Specialist Name Role Phone Katie Gaytan Primary Care Provider UnavailNAT Villalobos [phone] REASON FOR VISIT 9wk DM Encounters Encounter Location Date Provider Diagnosis [facility] [address] [address] 12/31/2024 NAT BROWN Plan Of Treatment No Information Progress Notes * Randy TANDOB:1950 (74 yo M)Acc No.[id number]:12/31/2024 Progress Note Patient: Daniel HORNin Ludin Provider: Tono Brown DPM :1950 A ge:74 Y S ex:Male Date:12/31/2024 Address:[address] [place] [address] [facility] [id number] Pcp:Katie Gaytan Subjective: * Chief Complaints: * 1 . 9wk DM. * Medical History: Objective: * Vitals: Assessment: Plan: * Treatment: * Billing Information: * Visit Code: * Procedure Codes: * Electronic signature of MEILY BROWN D.P.M on 01/06/2025 at 05:51 AM EDT Sign off status: Pending * Provider: Tono Brown DPM Date: 12/31/2024 Generated for Printi ng/Faxing/eTransmitting on: 01/06/2025 05:51 AM EDT
--- OUTSIDE RECORDS SUMMARY | 2025-01-03 04:30 | XMS_ITS ---
Author Organization [facility] Address [address] [address] Care Team Providers Care Laundry Marker Supervisor Name Role Phone Katie Gaytan Primary Care Provider UnavailNAT Villalobos [phone] REASON FOR VISIT 9wk DM Encounters Encounter Location Date Provider Diagnosis [facility] [address] [address] 01/03/2025 NAT BROWN Plan Of Treatment No Information Progress Notes * Randy TANDOB:1950 (74 yo M)Acc No.[id number]:01/03/2025 Progress Note Patient: Daniel HORNin Ludin Provider: Tono Brown DPM :1950 A ge:74 Y S ex:Male Date:01/03/2025 Address:[address] [place] [address] [facility] [id number] Pcp:Katie Gaytan Subjective: * Chief Complaints: * 1 . 9wk DM. * Medical History: Objective: * Vitals: Assessment: Plan: * Treatment: * Billing Information: * Visit Code: * Procedure Codes: * Electronic signature of EMILY BROWN D.P.M on 01/06/2025 at 05:51 AM EDT Sign off status: Pending * Provider: Tono Brown DPM Date: 01/03/2025 Generated for Printi ng/Faxing/eTransmitting on: 01/06/2025 05:51 AM EDT
--- OUTSIDE RECORDS SUMMARY | 2025-01-06 05:51 | XMS_ITS | Encounter Summary ---
Author Organization [facility] Address [address] [place] [address] Care Team Providers Care Hydro Technician Name Role Phone Katie Gaytan MD Primary Care Provider [phone] Encounter Details Date Type Department Care Team ([facility] st Contact Info) Description 12/27/2024 Telephone Adult Medicine [facility] [place] [address] [place] [phone] Kaite Gaytan MD [address] [place] [address] Social History Tobacco Use Types Packs/Day Years [...] for your loved ones. For example, child psychology teacher or elderly care for an older adult? [...] as of this encounter Progress Notes * Rohini Snider - 12/27/2024 3:40 PM EDT Patient's Partner Ruchi is calling to notify Provider that Patient has been hospitalized for a couple week at [facility] reason why Patient missed his appointment on 12/24/24. Patient's Partner looking for call back ( She is Emergency Contact but we have No updated Verbal Release on file orHealthcare Proxy) documented in this encounter Plan of Treatment Upcoming Encounters Date Type Department Care Team (Late st Contact Info) Description 01/21/2025 8:40 AM EDT Office Visit [facility] [address] [facility] [address] [place] [address] Sarah Lee, TAMAR [address] [place] [address] [address] [place] [address] 03/30/2025 9:20 AM EST Office Visit Endocrinology - [place] [address] [place] [address] Julia Oconnell PA [address] [place] [address] documented as of this encounter Visit Diagnoses Not on filedocumented in this encounter Additional Health Concerns Assessment Noted Time PHQ-9 Depression Total Score: 0 03/22/20 10:44 AM EST A fall risk assessment has been complete d for the patient 03/20/2024 12:04 PM EST documented as of this encounter Care Teams Hydro Technician Relationship Specialty Start Date End Date Katie Gaytan MD [address] [place] [id number] PCP - General 02/18/1999 documented as of this encounter
--- OUTSIDE RECORDS SUMMARY | 2025-01-06 05:51 | XMS_ITS | Encounter Summary ---
Author Organization [facility] Address [address] [place] [address] Care Team Providers Care General Laborer Name Role Phone Katie Gaytan MD Primary Care Provider [phone] Encounter Details Date Type Department Care Team (Latest Contact Info) Description 03/02/2024 Anticoagulation - Warfarin Visit [facility] [address] [address] Shonna White LPN Personal history of DVT [...] Description 01/21/2025 8:40 AM EDT Office Visit [facility] [address] [facility] [address] [place] [address] Sarah Lee, TAMAR [address] [place] [address] [place] [address] 03/30/2025 9:20 AM EST Office Visit [place] [facility] [address] [place] [address] Julia Oconnell PA [address] [place] [address] documented as of this encounter Visit Diagnoses Diagnosis Personal history of DVT (deep vein thrombosis)- Primary Personal history of venous thrombosis and embolism documented in this encounter Care Teams General Laborer Relationship Specialty Start Date End Date Katie Gaytan MD [address] [place] [address] PCP - General 02/18/1999 documented as of this encounter
--- OUTSIDE RECORDS SUMMARY | 2025-01-06 05:51 | XMS_ITS | Clinical Summary ---
Author Organization [facility] Address [address] [facility] [address] [place] [phone] Phone Care Team Providers Care Director Of Annual Giving Name Role Phone Katie Gaytan MD Primary Care Provider [phone] Social History Tobacco Use Types Packs/Day Years [...] file Insurance MEDICARE PART A & B [facility] MEDICARE REPLACEMENT MEDICARE PART A & B MEDICARE REPLACEMENT MEDICARE PART A & B MEDICARE REPLACEMENT MEDICARE PART A & [place] [address] [place] [address] MEDICARE REPLACEMENT MEDICARE PART A & B [facility] AAR MEDICARE REPLACEMENT MEDICARE PART A & B Care Teams Director Of Annual Giving Relationship Specialty Start Date End Date Katie Gaytan MD [address] [place] [address] PCP - General Internal Medicine 04/17/23 Additional Source Comments The information contained in this document represents components of the legal health record. It is not the complete legal health record.[facility]
--- OUTSIDE RECORDS SUMMARY | 2025-01-06 05:51 | XMS_ITS | Clinical Summary ---
Author Organization [address] [place] [address] [place] [phone] Phone Care Team Providers Care Measurement Specialist Name Role Phone Katie Gaytan MD Primary Care Provider [phone] Allergies Active Allergy Reactions Criticality Noted Date Comments Lanolin Rash 04/17/2007 Allergic to wool causes rash Other 02/03/2023 Other reaction(s): Hives Peanut Hives 04/16/2006 Wool 04/02/2023 Medications ammonium lactate (AMLACTIN) 12 % cream Apply topically 2 times daily as needed. Active finasteride (PROSCAR) 5 mg tablet Urologist prescribed meds Active insulin pump cart,10 units/day cartridge CHANGE POD DAILY, USE 4-6 CLICKS PER MEAL 12/30/19 24 Active tamsulosin (FLOMAX) 0.4 mg 24 hr capsule Urologist prescribed meds Active lancets lancets by Other route. Active aspirin 81 mg EC tablet Take 1 tablet (81 mg total) by mouth 1 (one) time each day. 04/22/19 25 026 Active digoxin (LANOXIN) 125 mcg (0.125 mg) tablet Take 1 tablet (125 mcg total) by mouth 1 (one) time each day. 90 tablet 2 06/11/19 25 Active blood-glucose meter,continuous (WP Engineyle Pat 3 [place]) miscIndications:D M (diabetes mellitus), type 2 with neurological complications (CMS/HCC V24, CMS/HCC V28) CGM, use with pat sensor 1 each 06/22/19 25 Active atorvastatin (LIPITOR) 40 mg tablet TAKE ONE TABLET BY MOUTH ONCE DAILY 90 tablet 1 06/29/19 25 Active furosemide (LASIX) 20 mg tablet TAKE ONE TABLET BY MOUTH ONCE DAILY 90 tablet 1 07/24/19 25 Active metFORMIN XR (GLUCOPHAGE-XR) 500 mg 24 hr tablet TAKE ONE TABLET BY MOUTH TWO TIMES A DAY WITH FOOD 60 tablet 2 08/07/19 25 Active insulin lispro 100 unit/mL injection USE IN V-GO 20 SUBCUTANEOUS INSULIN DELIVERY SYSTEM FOR MAX 55 UNITS/DAY. 20 mL 11 08/07/19 25 Active hydrocortisone 1 % lotionIndications :Venous stasis ulcer of left calf with varicose veins, unspecified ulcer stage ([facility] V24, [facility] V28),Venous stasis ulcer of right calf limited to breakdown of skin with varicose veins ([facility] V24, [facility] V28),Personal history of DVT (deep vein thrombosis),Post- thrombotic syndrome Apply topically 2 (two) times a day. Apply to lower leg itchy areas bilaterally. Do not apply to open wounds. 118 mL 2 08/24/19 25 026 Active Trulicity 1.5 mg/0.5 mL pen injector injection INJECT 1.5 MILLIGRAMS SUBCUTANEOUSLY ONCE A WEEK DIRECTED 2 mL 6 09/03/19 25 Active warfarin (COUMADIN) 5 mg tablet TAKE 1 TO 2 TABLETS BY MOUTH ONCE DAILY. MAY CAUSE HEAVY BLEEDING AND TAKE AT THE SAME TIME EVERY DAY. DO NOT CHANGE DIETARY HABITS 180 tablet 1 09/01/19 25 Active folic acid (FOLVITE) 1 mg tablet TAKE ONE TABLET BY MOUTH ONCE DAILY 90 tablet 1 10/05/19 25 Active blood-glucose sensor (FreeStyle Pat 3 Plus Sensor) deviceIndications :Type 2 diabetes mellitus with chronic kidney disease, with long-term current use of insulin, unspecified CKD stage (CMS/[facility] V24, CMS/[facility] V28) Change sensor every 15 days 6 each 1 10/15/19 25 Active metoprolol tartrate (LOPRESSOR) 100 mg tablet Take 1.5 tablets (150 mg total) by mouth 2 (two) times a day. 180 each 3 10/21/19 25 Active amoxicillin-clavu lanate (AUGMENTIN) 500-125 mg per tablet Take 1 tablet by mouth 1 (one) time each day. Active sub-q insulin device, 20 unit (V-GO 20) device CHANGE POD DAILY. USE 2-3 CLICKS BEFORE EACH MEAL. USE ONE ADDITIONAL CLICK FOR CARB HEAVY MEALS. 30 kit 5 11/09/19 25 Active blood-glucose meter kitIndications:DM (diabetes mellitus), type 2 with neurological complications ([facility] V24, [facility] V28) Use to check bs daily 1 each 11/17/19 25 Active blood sugar diagnostic (Contour Next Test Strips) test stripIndications: DM (diabetes mellitus), type 2 with neurological complications ([facility] V24, [facility] V28) Use to check bs 3 times a day 100 each 12 11/17/19 25 026 Active lancets (Microlet Lancet) lancetsIndication s:DM (diabetes mellitus), type 2 with neurological complications ([facility] V24, [facility] V28) Use to check bs 3 times daily 100 each 12 11/17/19 25 026 Active Active Problems Problem Noted Date Diagnosed Date Personal history of DVT (deep vein thrombosis) 1 04/27/2023 Hypotension 05/16/2023 Sepsis ([facility] V24, [facility] V28) 05/16/2023 Urinary tract infection with hematuria Overview (02/02/2024): Urosepsis, please see note 04/30/23, obstructive uropathy likely from BPH, requiring prolonged Julio cath/bag. Following with urology Dr. 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 Embolism and thrombosis of a rteries of lower extremity ([facility] V24, [facility] V28) 03/18/2017 Umbilical hernia without obstruction and without gangrene 03/02/2015 Assessment & Plan (03/24/2024 1:07 PM EST): Other specified anemias 02/15/2015 DM ketoacidosis type II, unc ontrolled ([facility] V24, [facility] V28) 09/21/2014 Microalbuminuria 09/21/2014 Nuclear sclerosis 09/21/2014 [...] due t o type 2 diabetes mellitus ([facility] V24, [facility] V28) 05/29/2005 Overview (02/02/2024): Last Assessment & [...] continue to follow with your specilaist at [facility], and get me the record. 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, followed by hematology IMO update Esophageal reflux 05/29/2005 Overview (02/02/2024): The patient underwent upper GI endoscopy 08.30.05 at [facility] for the evaluation of reflux and [...] Plan (03/24/2024 1:07 PM EST): Morbid obesity (CMS/[facility] V24, [facility] V28) 2005 Pure hypercholesterolemia 05/29/2005 Assessment & [...] Encounters Date Type Department Care Team Description 12/27/2024 Telephone Adult Medicine [address] [phone] Katie Gaytan MD 12/22/2024 Telephone [facility] [address] [facility] [address] [place] [phone] Sarah Lee NP 12/13/2024 Anticoagulation - Warfarin Visit [facility] [address] [phone] Latasha Deleon LPN Personal history of DVT (deep vein thrombosis) (Primary Dx) 12/09/2024 10:00 AM EDT Ancillary Procedure [facility] - [facility] [address] [facility] [address] [place] [phone] PAD (peripheral artery disease) ([facility] V24); Ectasia of artery ([facility] V24) 12/07/2024 Telephone Vascular Surgery - [place] [address] [place] [phone] Jose Kauffman MD 12/06/2024 Anticoagulation - Warfarin Visit [facility] [address] [phone] Latasha Deleon LPN Personal history of DVT (deep vein thrombosis) (Primary Dx) 11/30/2024 Telephone Adult Medicine [address] [phone] Carmelita Henson RN 11/30/2024 Telephone [facility] [address] [facility] [address] [place] [phone] Yovany Giles MD 11/30/2024 Telephone Adult [address] [phone] Katie Gaytan MD 11/29/2024 Anticoagulation - Warfarin Visit Coumadin [address] [phone] Shonna White LPN Personal history of DVT (deep vein thrombosis) (Primary Dx) 11/22/2024 Anticoagulation - Warfarin Visit Coumadin [address] [phone] Shonna White LPN Personal history of DVT (deep vein thrombosis) (Primary Dx) 11/16/[address] [phone] Julia Oconnell PA 11/15/2024 Anticoagulation - Warfarin Visit Coumadin [address] [phone] Shonna White LPN Personal history of DVT (deep vein thrombosis) (Primary Dx) 11/08/2024 Anticoagulation - Warfarin Visit Coumadin [address] [phone] Latasha Deleon LPN Personal history of DVT (deep vein thrombosis) (Primary Dx) 11/01/2024 9:00 AM EDT Ancillary Procedure [facility] [address] [place] [phone] Longstanding persistent atrial fibrillation (CMS/HCC V24, CMS/HCC V28) 11/01/2024 Anticoagulation - Warfarin Visit Coumadin [address] [phone] Shonna White LPN Personal history of DVT (deep vein thrombosis) (Primary Dx) 10/29/2024 8:30 AM EDT Office Visit Adult Medicine [address] [phone] Katie Gaytan MD Cellulitis and abscess of leg (Primary Dx) 10/26/2024 Anticoagulation - Warfarin Visit Coumadin [address] [phone] Shonna White LPN Personal history of DVT (deep vein thrombosis) (Primary Dx) 10/20/2024 10:10 AM EDT Office Visit [facility] [address] [facility] [address] [place] [phone] Radha Hudson NP Longstanding persistent atrial fibrillation (CMS/HCC V24, CMS/HCC V28) (Primary Dx); Chronic venous stasis; Chronic diastolic congestive heart failure (CMS/HCC V24, CMS/HCC V28); KIRILL (obstructive sleep apnea); 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; Essential hypertension, benign; Pure hypercholesterolemia 10/20/2024 Telephone [facility] [address] [facility] [address] [place] [phone] Radha Hudson NP 10/20/2024 Telephone Vascular Surgery - [place] [address] [facility] [address] [place] [phone] Jeremiah Rodriguez [place] 10/12/2024 Anticoagulation - Warfarin Visit [address] [phone] Shonna White LPN Personal history of DVT [...] Bivalent, Or iginal + Ba.1 (Non-US Trademark [employer] Bivalent) 12/25/2021 Pfizer SARS-CoV-2 COVID-19, mRNA, LNP-S, [...] with neurological complications (CMS/HCC V24, CMS/HCC V28) 09/01/2017 DX:DM (diabetes mellitus), t ype 2 with neurological complications ([facility]) Family History Medical History Relation Name Comments [...] for your loved ones. For example, child support officer or elderly care for an older adult? [...] Description 01/21/2025 8:40 AM EDT Office Visit [facility] - [address] [place] [phone] Sarah Lee NP [address] [place] [address] [place] [phone] 03/30/2025 9:20 AM EST Office Visit Endocrinology - [place] [address] [place] [phone] Julia Oconnell PA [address] [place] [address] Health Maintenance Due Date Last Done Comments Depression Screening 04/21/2024 03/22/2024 Diabetes: Annual Foot Exam 11/27/2024 11/28/2023 COVID-19 Vaccine (7 - Pfizer risk season) 2024 01/27/2024, 01/10/2023, 08/08/2021, Additional history exists Influenza Vaccine (#1) 2024 , 12/27/2022, 12/25/2021, [...] Procedure Name Priority Date/Time Associated Diagnosis Comments EXTERNAL XRAY REPORT 12/28/2024 EXTERNAL XRAY REPORT 12/28/2024 EXTERNAL XRAY REPORT 12/27/2024 EXTERNAL XRAY REPORT 12/27/2024 EXTERNAL XRAY REPORT 12/21/[address] REPORT 12/20/[address] REPORT 12/20/2024 EXTERNAL XRAY REPORT 12/20/2024 EXTERNAL XRAY REPORT 12/20/[address] REPORT 12/15/[address] REPORT 12/15/2024 EXTERNAL XRAY REPORT 12/14/2024 EXTERNAL XRAY REPORT 12/14/[address] REPORT 12/14/[address] REPORT 12/14/2024 EXTERNAL XRAY REPORT 12/14/2024 PROTHROMBIN TIME WITH INR 12/13/2024 PROTHROMBIN TIME WITH INR Routine 12/13/2024 VAS US DUPLEX LOWER EXT ARTERIES BILAT WITH NYDIA Routine 12/09/2024 11:32 AM EDT PAD (peripheral artery disease) ([facility] V24) Ectasia of artery (CMS/HCC V24) PROTHROMBIN [...] 10/12/2024 PROTHROMBIN TIME WITH INR Routine 10/12/2024 MICROALBUMIN CREATININE URINE RATIO Routine 08/25/2024 1:50 PM EDT Atrial fibrillation, unspecified type ([facility]/HCC V24, [facility]/HCC V28) Chronic diastolic congestive heart failure (CMS/HCC V24, [facility] V28) Encounter for lipid screening for cardiovascular [...] Recently Relevant to Health Maintenance Results * External Xray Report (12/28/2024) Only the most recent of10 resultswithin the time period is included. Anatomical Region Laterality Modality Radiographic Tala ging Provider [facility] XR PROCEDURES Final Result * External CT Report (12/20/2024) Only the most recent of6 resultswithin the time period is included. Anatomical Region Laterality Modality Computed Tomogra phy Provider [facility] PROCEDURES Final Result * Prothrombin time with INR (12/13/2024) Only the most recent of18 resultswithin the time period is included. Provider [...] PSV 64 cm/s CV VAS LAB Left SALES SERVICE PROMOTER prox sys PSV 70 cm/s CV VAS [...] PSV 51 cm/s CV VAS LAB Right SALES SERVICE PROMOTER prox sys PSV 77 cm/s CV VAS [...] The mid peroneal artery has triphasic flow. Slot Machine Floor Person Details A reid scale, color and doppler analysis ultrasound was performed. During the study longitudinal views were obtained. Pulsed wave doppler was performed. Talia ZIMMERMAN CV VASCULAR PROCEDURES Final Result * (ABNORMAL) B-type natriuretic peptide (12/02/2024 9:29 AM EDT) BNP 266(H) <=100 pcg/mL LAB CHEMISTRY METHOD 12/02/2024 11:50 AM EDT [facility]) [facility] Blood Venous blood specimen / Unknown Venipuncture / Unknown 12/02/2024 9:29 AM EDT 12/02/2024 9:29 AM EDT Sarah Jesus CLINICAL TRIAL EDUCATOR LAB BLOOD ORDERABLES Final Resu lt [facility] [address] [place] [address], * (ABNORMAL) Basic metabolic panel (12/02/2024 9:29 AM EDT) Sodium 139 133 - 145 mmol/L LAB CHEMISTRY METHOD 12/02/2024 12:42 PM [facility] Potassium 4.2 3.5 - 5.5 mmol/L LAB CHEMISTRY METHOD 12/02/2024 12:42 PM [facility] Chloride 103 96 - 110 mmol/L LAB CHEMISTRY METHOD 12/02/2024 12:42 PM [facility] CO2 32 21 - 32 mmol/L LAB CHEMISTRY METHOD 12/02/2024 12:42 PM [facility] Anion Gap 4 3 - 11 LAB CHEMISTRY METHOD 12/02/2024 12:42 PM [facility] Glucose 216(H) 70 - 100 mg/dL LAB CHEMISTRY METHOD 12/02/2024 12:42 PM [facility] BUN 17 5 - 25 mg/dL LAB CHEMISTRY METHOD 12/02/2024 12:42 PM [facility] Creatinine 0.98 0.70 - 1.30 mg/dL LAB CHEMISTRY METHOD 12/02/2024 12:42 PM [facility] eGFR 82 >=60 mL/min/1. 73m2 LAB CHEMISTRY METHOD 12/02/2024 12:42 PM [facility] Comment:Calculation based on the Chronic Kidney Disease Epidemiology Collaboration (CKD-EPI) equation refit without adjustment for race. BUN/Creatinine Ratio 17.3 LAB CHEMISTRY METHOD 12/02/2024 12:42 PM [facility] Calcium 8.6 8.5 - 10.5 mg/dL LAB CHEMISTRY METHOD 12/02/2024 12:42 PM [facility] Blood Venous blood specimen / Unknown Venipuncture / Unknown 12/02/2024 9:29 AM EDT 12/02/2024 9:29 AM EDT Sarah Lee CLINICAL TRIAL EDUCATOR LAB BLOOD ORDERABLES Final Resu lt Performing Organization Address [facility]/ZIP Co de Phone Number [facility] [address] [place] [address], [place] [phone] * (ABNORMAL) Hemoglobin A1c (12/02/2024 7:55 AM EDT) Hemoglobin A1C 6.8(H) <6.5 % LAB CHEMISTRY METHOD 12/02/2024 11:37 AM EDT [facility] Mean Bld Glu Estim. 148 mg/dL LAB CHEMISTRY METHOD 12/02/2024 11:37 AM EDT [facility] Blood Venous blood specimen / Unknown Venipuncture / Unknown 12/02/2024 7:55 AM EDT 12/02/2024 7:55 AM EDT Julia ZIMMERMAN LAB BLOOD ORDERABLES Final Resul t Performing Organization Address [facility] Co de Phone Number [facility] [address] [place] [address], [place] [phone] * (ABNORMAL) Digoxin level (12/02/2024 7:55 AM EDT) Digoxin Lvl 0.3(L) 0.5 - 2.0 ng/mL LAB CHEMISTRY METHOD 12/02/2024 11:16 AM EDT [facility] Blood Venous blood specimen / Unknown Venipuncture / Unknown 12/02/2024 7:55 AM EDT 12/02/2024 7:55 AM EDT Radha Hudson CLINICAL TRIAL EDUCATOR LAB BLOOD ORDERABLES Final Resu lt [facility] [address] [place] [address], * CARDIAC HOLTER MONITOR (REPORT GENERATED IN HOUSE) (11/01/2024 9:05 AM EDT) Anatomical Region Laterality Modality Cardiac Diagnost ic Narrative 11/03/2024 7:47 AM EDT [facility]PARTMENT [address] [facility], [address] [address] TEL: FAX: Type of Test: 24 Hour Holter Monitor Date of Test: 11/01/2024 Ordering Provider: Radha Hudson NP Reason for Test: Longstanding persistent atrial fibrillation [facility] Special Education Teaching Assistant Findings: 1: Atrial Fibrillation noted throughout recording. [...] LAB CHEMISTRY METHOD 08/25/2024 6:50 PM EDT [facility] Triglycerides 134 0 - 150 mg/dL LAB CHEMISTRY METHOD 08/25/2024 6:50 PM EDT [facility] HDL 39(L) >=40 mg/dL LAB CHEMISTRY METHOD 08/25/2024 6:50 PM EDT [facility] LDL Calculated 33 0 - 100 mg/dL LAB CHEMISTRY METHOD 08/25/2024 6:50 PM EDT [facility] VLDL Cholesterol Aramis 26.8 mg/dL LAB CHEMISTRY METHOD 08/25/2024 6:50 PM EDT [facility] Non HDL Chol. (LDL+VLDL) 60 <145 mg/dL LAB CHEMISTRY METHOD 08/25/2024 6:50 PM EDT [facility] Chol/HDL Ratio 2.5 0.0 - 4.4 LAB CHEMISTRY METHOD 08/25/2024 6:50 PM EDT [facility] Blood Venous blood specimen / Unknown Venipuncture / Unknown 08/25/2024 1:50 PM EDT 08/25/2024 1:50 PM EDT Jose Armando Oakley CLINICAL TRIAL EDUCATOR LAB BLOOD ORDERABLES Final R esult Performing Organization Address City/[facility]/ZIP Co de Phone Number [facility] [address] [place] [address], [place] [phone] * (ABNORMAL) Microalbumin creatinine urine ratio (08/25/2024 1:50 PM EDT) Creatinine, Urine 103.0 mg/dL LAB CHEMISTRY METHOD 08/25/2024 6:51 PM EDT [facility] Microalb, Ur 121.0(H) 0.0 - 29.0 mg/L LAB CHEMISTRY METHOD 08/25/2024 6:51 PM EDT [facility] Microalb/Crea t Ratio 117(H) <30 mg/g creat LAB CHEMISTRY METHOD 08/25/2024 6:51 PM EDT [facility] Urine Urine specimen obtained by clean catch procedure / Unknown Non-blood Collection / Unknown 08/25/2024 1:50 PM EDT 08/25/2024 1:50 PM EDT Jose Armando Oakley CLINICAL TRIAL EDUCATOR LAB URINE ORDERABLES Final R esult Performing Organization Address City/[facility]/ZIP Co de Phone Number [facility] [address] [place], [place] [address] [phone] * Diabetes Foot Exam (11/28/2023) Pathologist [facility] Diabetes: Annual Foot Exam Abstracted Historical Provider HEALTH MAINTENANCE Final Result * Colonoscopy (06/10/2018) Pathologist [facility] Colonoscopy No interpreta tion,abstr acted Anatomical Region Laterality Modality Other Historical Provider HEALTH MAINTENANCE Final Result * Hepatitis C Screening (03/13/2013) Pathologist [facility] Hepatitis C Screening Abstracted Historical Provider HEALTH MAINTENANCE Final Result from Last 3 Months or Most Recently Relevant to Health Maintenance Insurance [employer] MED[employer]ARE Care Teams Measurement Specialist Relationship Specialty Start Date End Date Katie Gaytan MD [address] [place] [id number] PCP - General 02/18/1999
--- OUTSIDE RECORDS SUMMARY | 2025-01-06 05:52 | XMS_ITS | Patient Health Record ---
Author Organization [facility] Address [address] [facility] [address] [place] [address] Care Team Providers Care Transfer Engineer Name Role Phone Katie Gaytan Primary Care Provider NAT Bai Unavailable [phone] Allergies Allergen (clinical drug ingredient) Drug/Non Drug [...] Polyneuropathy due to type 2 diabetes mellitus (990330153) Type 2 diabetes mellitus with diabetic polyneuropathy (E11.42) Active confirmed Problem Long-term current use of insulin (966213288) residential (current) use of insulin (Z79.4) Active confirmed Problem Peripheral vascular disease (131548222) PVD (peripheral vascular disease) (I73.9) Active confirmed Problem Peripheral venous insufficiency (55605363) Venous stasis dermatitis of both lower extremities (I87.2) Active confirmed Problem Ulcer of right lower extremity, limited to breakdown of skin (L97.911) Active confirmed Problem Ankle ulcer (292551639) Skin ulcer of right ankle with fat layer exposed (L97.312) Active confirmed Vital Signs Heart Rate 87 /min 10/27/2024 Temperature 96.6 degrees Fahrenheit 10/27/2024 Respiratory Rate 20 /min 10/27/2024 Height 6ft 4in in 10/27/2024 Weight 258.2 lbs 10/27/2024 BMI 31.43 kg/m2 10/27/2024 Encounters Encounter Location Date Provider Diagnosis [facility] [address] [address] 01/30/2024 NATMARVIN BROWN Type 2 diabetes mellitus with diabetic polyneuropathy E11.42 ; Dystrophic nail L60.3 ; Pain in left toe(s) M79.675 ; Pain in right toe(s) M79.674 ; Venous stasis dermatitis of both lower extremities I87.2 and Localized swelling of both lower legs R22.43 [facility] [address] [address] 04/05/2024 NATMARVIN BROWN Type 2 diabetes mellitus with diabetic polyneuropathy E11.42 ; Dystrophic nail L60.3 ; Pain in left toe(s) M79.675 ; Pain in right toe(s) M79.674 ; Venous stasis dermatitis of both lower extremities I87.2 and Localized swelling of both lower legs R22.43 [facility] [address] 06/18/2024 NAT BROWN Type 2 diabetes mellitus with diabetic polyneuropathy E11.42 ; Dystrophic nail L60.3 ; Pain in left toe(s) M79.675 ; Pain in right toe(s) M79.674 ; Venous stasis dermatitis of both lower extremities I87.2 and Localized swelling of both lower legs R22.43 [facility] [address] 08/20/2024 NAT BROWN Type 2 diabetes mellitus with diabetic polyneuropathy E11.42 ; Tinea pedis, right B35.3 ; Dystrophic nail L60.3 ; Pain in left toe(s) M79.675 ; Pain in right toe(s) M79.674 ; Venous stasis dermatitis of both lower extremities I87.2 and Localized swelling of both lower legs R22.43 [facility] [address] 10/27/2024 NAT BROWN Ulcer of right lower extremity, limited to breakdown of skin L97.911 ; Cellulitis of right leg L03.115 ; Type 2 diabetes mellitus with diabetic polyneuropathy E11.42 ; Dystrophic nail L60.3 ; Pain in right toe(s) M79.674 and Pain in left toe(s) M79.675 [facility] [address] 06/18/2024 NAT BROWN [facility] [address] 06/18/2024 NAT BROWN [facility] [address] 08/23/2024 NAT BROWN Assessments Encounter Date [...] PO BID x 10 days sent to [facility] pharmacy per the patient's request. Pt to [...] Aseptic debridement of toenails x 10 with brim cutter and curette, pt tolerated well. Discussed [...] Aseptic debridement of toenails x 10 with brim cutter and curette, pt tolerated well. Discussed [...] Aseptic debridement of toenails x 10 with brim cutter and curette, pt tolerated well. Discussed [...] Aseptic debridement of toenails x 10 with brim cutter and curette, pt tolerated well. Discussed [...] Aseptic debridement of toenails x 10 with brim cutter and curette, pt tolerated well. Discussed [...] disease. I will request the records from [facility] for his most recent studies. He needs [...] agreement with this plan. Plan Of Treatment No Information Insurance Providers Payer Name Payer Address Payer Phone Subscriber Number Group Number Insured Name Patient Relationship to Insured Coverage Start Date Coverage End Date [employer] Medicare [id number] [address] [address] [place] [address] [id number] Molly dueñas Randy Self - patient is the insured Medical [...] Date(Month/Year) inguinal hernia repair cardiac stent - [facility] 11/2022 Hospitalization History Reason Date(Month/Year) Afib 02/2023 Afib, water retention 01/2023
[2025-01-06 05:54] LABS: MANUAL DIFF FLAG NO
[2025-01-06 06:05] LABS: Hematocrit 41.6 % (42.0-52.0); Hemoglobin 13.1 g/dl (14.0-18.0); Imm Gran Abs Auto 0.02 X10*3/uL (0.00-0.03); Imm Gran Pct Auto 0.2 % (0.0-0.4); Lymphocytes Absolute Auto 0.9 X10*3/uL (1.2-4.9); Mean Corpuscular HGB Conc 31.5 g/dl (31.0-36.0); Mean Corpuscular Hemoglobin 24.3 pg (27.0-33.0); Mean Corpuscular Volume 77.2 fL (80.0-98.0); NRBC Abs Auto 0.000 X10*3/uL (0.0-0.012); NRBC Pct Auto 0.0 /100WBC (0.0-0.2); Platelet Count 209 X10*3/uL (160-400); Red Blood Count 5.39 X10*6/uL (4.60-5.80); White Blood Count 8.4 X10*3/uL (4.8-10.8)
[2025-01-06 06:29] LABS: Alanine Aminotransferase 27 U/L (0-40); Albumin Level 3.0 g/dL (3.5-5.0); Alkaline Phosphatase 86 U/L (39-117); Anion Gap 12 (12-20); Aspartate Amino Transferase 22 U/L (5-37); Blood Urea Nitrogen 21 mg/dL (9-16); Calcium 8.9 mg/dL (8.4-10.2); Carbon Dioxide 25 mmol/L (22-29); Chloride 105 mmol/L (96-108); Estimated Glomerular Filt Rate > 60; Potassium 4.7 mmol/L (3.3-5.1); Sodium 137 mmol/L (135-145); Total Protein 6.7 g/dL (6.5-8.0)
[2025-01-06 06:33] LABS: Hemoglobin A1C 187.0305 umol/L; Total Hemoglobin (HGBA1C) 3444.9632 umol/L
== END 2025-01-06 05:48 | disposition home or self-care (01) ==
LOC: HO.MMNH1L 05:47
PROVIDERS: Visit Provider Physician Assistant Medical
DX: E11.9 Type 2 diabetes mellitus without complications (principal); I10 Essential (primary) hypertension
CPT/HCPCS: 36415; 80053; 83036; 85025

== ENCOUNTER 2025-01-10 07:11 | Outpatient (REF) | payer MEDICARE, SELFPAY ==
--- OUTSIDE RECORDS SUMMARY | 2024-12-31 04:30 | XMS_ITS ---
Author Organization [facility] Address [address] [address] Care Team Providers Care Geriatric Care Manager Name Role Phone Katie Gaytan Primary Care Provider UnavailNAT Villalobos [phone] REASON FOR VISIT 9wk DM Encounters Encounter Location Date Provider Diagnosis [facility] [address] [address] 12/31/2024 NAT BROWN Plan Of Treatment No Information Progress Notes * Randy TANDOB:1950 (74 yo M)Acc No.[id number]:12/31/2024 Progress Note Patient: Daniel HORNin Ludin Provider: Tono Brown DPM :1950 A ge:74 Y S ex:Male Date:12/31/2024 Address:[address] [place] [address] [facility] [id number] Pcp:Katie Gaytan Subjective: * Chief Complaints: * 1 . 9wk DM. * Medical History: Objective: * Vitals: Assessment: Plan: * Treatment: * Billing Information: * Visit Code: * Procedure Codes: * Electronic signature of EMILY BROWN D.P.M on 01/10/2025 at 07:13 AM EDT Sign off status: Pending * Provider: Tono Brown DPM Date: 12/31/2024 Generated for Printi ng/Faxing/eTransmitting on: 01/10/2025 07:13 AM EDT
--- OUTSIDE RECORDS SUMMARY | 2025-01-03 04:30 | XMS_ITS ---
Author Organization [facility] Address [address] [address] Care Team Providers Care Natural Science Manager Name Role Phone Katie Gaytan Primary Care Provider UnavailNAT Villalobos [phone] REASON FOR VISIT 9wk DM Encounters Encounter Location Date Provider Diagnosis [facility] [address] [address] 01/03/2025 NAT BROWN Plan Of Treatment No Information Progress Notes * Randy TANDOB:1950 (74 yo M)Acc No.[id number]:01/03/2025 Progress Note Patient: Daniel HORNin Ludin Provider: Tono Brown DPM :1950 A ge:74 Y S ex:Male Date:01/03/2025 Address:[address] [place] [address] [facility] [id number] Pcp:Katie Gaytan Subjective: * Chief Complaints: * 1 . 9wk DM. * Medical History: Objective: * Vitals: Assessment: Plan: * Treatment: * Billing Information: * Visit Code: * Procedure Codes: * Electronic signature of EMILY BROWN D.P.M on 01/10/2025 at 07:13 AM EDT Sign off status: Pending * Provider: Tono Brown DPM Date: 01/03/2025 Generated for Printi ng/Faxing/eTransmitting on: 01/10/2025 07:13 AM EDT
[2025-01-10 06:43] LABS: MANUAL DIFF FLAG NO
--- OUTSIDE RECORDS SUMMARY | 2025-01-10 07:13 | XMS_ITS | Encounter Summary ---
Author Organization [facility] Address [address] [place] [address] Care Team Providers Care Dietetic Technician Registered Name Role Phone Katie Gaytan MD Primary Care Provider [phone] Encounter Details Date Type Department Care Team ([facility] st Contact Info) Description 12/27/2024 Telephone Adult Medicine [facility] [place] [address] [place] [phone] Katie Gaytan MD [address] [place] [address] Social History Tobacco Use Types Packs/Day Years [...] care for your loved ones. For example, early childhood director or elderly care for an older [...] been hospitalized for a couple week at [facility] reason why Patient missed his appointment on 12/24/24. Patient's Partner looking for call back ( She is Emergency Contact but we have No updated Verbal Release on file orHealthcare Proxy) documented in this encounter Plan of Treatment Upcoming Encounters Date Type Department Care Team (Late st Contact Info) Description 01/21/2025 8:40 AM EDT Office Visit [facility] [address] [facility] [address] [place] [address] Sarah Lee, TAMAR [address] [place] [address] [address] [place] [address] 03/30/2025 9:20 AM EST Office Visit Endocrinology - [place] [address] [place] [address] Julia Oconnell PA [address] [place] [address] documented as of this encounter Visit Diagnoses Not on filedocumented in this encounter Additional Health Concerns Assessment Noted Time PHQ-9 Depression Total Score: 0 03/22/20 10:44 AM EST A fall risk assessment has been complete d for the patient 03/20/2024 12:04 PM EST documented as of this encounter Care Teams Dietetic Technician Registered Relationship Specialty Start Date End Date Katie Gaytan MD [address] [place] [address] PCP - General 02/18/1999 documented as of this encounter
--- OUTSIDE RECORDS SUMMARY | 2025-01-10 07:13 | XMS_ITS | Patient Health Record ---
Author Organization [facility] Address [address] [facility] [address] [place] [address] Care Team Providers Care Dairy Processing Supervisor Name Role Phone Katie Gaytan Primary Care Provider NAT Bai Unavailable [phone] Allergies Allergen (clinical drug ingredient) Drug/Non Drug [...] Polyneuropathy due to type 2 diabetes mellitus (422354276) Type 2 diabetes mellitus with diabetic polyneuropathy (E11.42) Active confirmed Problem Long-term current use of insulin (624348480) [facility] (current) use of insulin (Z79.4) Active confirmed Problem Peripheral vascular disease (196564444) PVD (peripheral vascular disease) (I73.9) Active confirmed Problem Peripheral venous insufficiency (08064096) Venous stasis dermatitis of both lower extremities (I87.2) Active confirmed Problem Ulcer of right lower extremity, limited to breakdown of skin (L97.911) Active confirmed Problem Ankle ulcer (706637532) Skin ulcer of right ankle with fat layer exposed (L97.312) Active confirmed Vital Signs Heart Rate 87 /min 10/27/2024 Temperature 96.6 degrees Fahrenheit 10/27/2024 Respiratory Rate 20 /min 10/27/2024 Height 6ft 4in in 10/27/2024 Weight 258.2 lbs 10/27/2024 BMI 31.43 kg/m2 10/27/2024 Encounters Encounter Location Date Provider Diagnosis [facility] [address] [address] 01/30/2024 NATMARVIN BROWN Type 2 diabetes mellitus with diabetic polyneuropathy E11.42 ; Dystrophic nail L60.3 ; Pain in left toe(s) M79.675 ; Pain in right toe(s) M79.674 ; Venous stasis dermatitis of both lower extremities I87.2 and Localized swelling of both lower legs R22.43 [facility] [address] [address] 04/05/2024 NATMARVIN BROWN Type 2 diabetes mellitus with diabetic polyneuropathy E11.42 ; Dystrophic nail L60.3 ; Pain in left toe(s) M79.675 ; Pain in right toe(s) M79.674 ; Venous stasis dermatitis of both lower extremities I87.2 and Localized swelling of both lower legs R22.43 [facility] [address] 06/18/2024 NAT BROWN Type 2 diabetes mellitus with diabetic polyneuropathy E11.42 ; Dystrophic nail L60.3 ; Pain in left toe(s) M79.675 ; Pain in right toe(s) M79.674 ; Venous stasis dermatitis of both lower extremities I87.2 and Localized swelling of both lower legs R22.43 [facility] [address] 08/20/2024 NAT BROWN Type 2 diabetes mellitus with diabetic polyneuropathy E11.42 ; Tinea pedis, right B35.3 ; Dystrophic nail L60.3 ; Pain in left toe(s) M79.675 ; Pain in right toe(s) M79.674 ; Venous stasis dermatitis of both lower extremities I87.2 and Localized swelling of both lower legs R22.43 [facility] [address] 10/27/2024 NAT BROWN Ulcer of right lower extremity, limited to breakdown of skin L97.911 ; Cellulitis of right leg L03.115 ; Type 2 diabetes mellitus with diabetic polyneuropathy E11.42 ; Dystrophic nail L60.3 ; Pain in right toe(s) M79.674 and Pain in left toe(s) M79.675 [facility] [address] 06/18/2024 NAT BROWN [facility] [address] 06/18/2024 NAT BROWN [facility] [address] 08/23/2024 NAT BROWN Assessments Encounter Date [...] PO BID x 10 days sent to [facility] pharmacy per the patient's request. Pt to [...] Aseptic debridement of toenails x 10 with glass cutter helper and curette, pt tolerated well. Discussed with [...] Aseptic debridement of toenails x 10 with glass cutter helper and curette, pt tolerated well. Discussed with [...] Aseptic debridement of toenails x 10 with glass cutter helper and curette, pt tolerated well. Discussed with [...] Aseptic debridement of toenails x 10 with glass cutter helper and curette, pt tolerated well. Discussed with [...] Aseptic debridement of toenails x 10 with glass cutter helper and curette, pt tolerated well. Discussed with [...] disease. I will request the records from [facility] for his most recent studies. [...] Date Coverage End Date [employer] Medicare Adv-[id number] [address] [address] [place] [address] [id number] Molly dueñas Randy Self - patient is [...] Date(Month/Year) inguinal hernia repair cardiac stent - [facility] 11/2022 Hospitalization History Reason Date(Month/Year) Afib 02/2023 Afib, water retention 01/2023
--- OUTSIDE RECORDS SUMMARY | 2025-01-10 07:13 | XMS_ITS | Clinical Summary ---
Author Organization [facility] Address [address] [facility] [address] [place] [address] Phone Care Team Providers Care Snowboard Instructor Name Role Phone Katie Gaytan MD Primary Care Provider [phone] Social History Tobacco Use Types Packs/Day Years [...] file Insurance MEDICARE PART A & B [facility] MEDICARE REPLACEMENT MEDICARE PART A & B MEDICARE REPLACEMENT MEDICARE PART A & B MEDICARE REPLACEMENT MEDICARE PART A & [place] [address] [place] [address] MEDICARE REPLACEMENT MEDICARE PART A & B [facility] MEDICARE REPLACEMENT MEDICARE PART A & B Care Teams Snowboard Instructor Relationship Specialty Start Date End Date Katie Gaytan MD [address] [place] [address] PCP - General Internal Medicine 04/17/23 Additional Source Comments The information contained in this document represents components of the legal health record. It is not the complete legal health record.[facility]
--- OUTSIDE RECORDS SUMMARY | 2025-01-10 07:13 | XMS_ITS | Encounter Summary ---
Author Organization [facility] Address [address] [place] [address] Care Team Providers Care Temple Meat Cutter Name Role Phone Katie Gaytan MD Primary Care Provider [phone] Encounter Details Date Type Department Care Team (Latest Contact Info) Description 03/02/2024 Anticoagulation - Warfarin Visit [facility] [address] [address] Shonna White LPN Personal history of DVT [...] Description 01/21/2025 8:40 AM EDT Office Visit [facility] [address] [facility] [address] [place] [address] Sarah Lee, TAMAR [address] [place] [address] [place] [address] 03/30/2025 9:20 AM EST Office Visit Endocrinology [facility] [address] [place] [address] Julia Oconnell PA [address] [place] [address] documented as of this encounter Visit Diagnoses Diagnosis Personal history of DVT (deep vein thrombosis)- Primary Personal history of venous thrombosis and embolism documented in this encounter Care Teams Temple Meat Cutter Relationship Specialty Start Date End Date Katie Gaytan MD [address] [place] [address] PCP - General 02/18/1999 documented as of this encounter
--- OUTSIDE RECORDS SUMMARY | 2025-01-10 07:13 | XMS_ITS | Clinical Summary ---
Author Organization [address] [place] [address] [place] [phone] Phone Care Team Providers Care Maintenance Mechanic Technician Name Role Phone Katie Gaytan MD Primary Care Provider [phone] Allergies Active Allergy Reactions Criticality Noted Date [...] tablet 2 06/11/19 25 Active blood-glucose meter,continuous (Vidimaxyle Pat 3 Deale) miscIndications:D M (diabetes mellitus), type 2 with [...] calf with varicose veins, unspecified ulcer stage ([facility] V24, [facility] V28),Venous stasis ulcer of right calf limited to breakdown of skin with varicose veins ([facility] V24, [facility] V28),Personal history of DVT (deep vein thrombosis),Post- [...] current use of insulin, unspecified CKD stage (CMS/[facility] V24, CMS/[facility] V28) Change sensor every 15 [...] (diabetes mellitus), type 2 with neurological complications ([facility] [place], [facility] V28) Use to check bs daily 1 each 11/17/19 25 Active blood sugar diagnostic (Contour Next Test Strips) test stripIndications: DM (diabetes mellitus), type 2 with neurological complications ([facility] V24, [facility] V28) Use to check bs 3 times a day 100 each 12 11/17/19 25 026 Active lancets (Microlet Lancet) lancetsIndication s:DM (diabetes mellitus), type 2 with neurological complications ([facility] V24, [facility] V28) Use to check bs 3 times daily 100 each 12 11/17/19 25 026 Active Active Problems Problem Noted Date Diagnosed Date Personal history of DVT (deep vein thrombosis) 1 04/27/2023 Hypotension 05/16/2023 Sepsis ([facility] V24, [facility] V28) 05/16/2023 Urinary tract infection with hematuria Overview (02/02/2024): Urosepsis, please see note 04/30/23, obstructive uropathy likely from BPH, requiring prolonged Julio cath/bag. Following with urology Dr. Michael Rutledge CHF (congestive heart failure) ([facility] V24, [facility] V28) 02/25/2023 Overview (04/22/2024): Echo [...] a referral to the wound clinic at [facility] as this is his preference I [...] (diabetes mellitus), type 2 with neurological complications ([facility] V24, 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 V24, [facility] V28) 03/18/2017 Umbilical hernia without obstruction and without gangrene 03/02/2015 Assessment & Plan (03/24/2024 1:07 PM EST): Other specified anemias 02/15/2015 DM ketoacidosis type II, unc ontrolled ([facility] V24, [facility] V28) 09/21/2014 Microalbuminuria 09/21/2014 Nuclear [...] due t o type 2 diabetes mellitus ([facility] V24, [facility] V28) 05/29/2005 Overview (02/02/2024): Last [...] continue to follow with your specilaist at [facility], and get me the record. 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 V28) 2005 Pure hypercholesterolemia 05/29/2005 [...] Care Team Description 12/27/2024 Telephone Adult Medicine [address] [phone] Katie Gaytan MD 12/22/2024 Telephone [facility] - [facility] [address] 300 [facility] [address] [place] [phone] Sarah Lee NP 12/13/2024 Anticoagulation - Warfarin Visit [facility] [address] [phone] Latasha Deleon LPN Personal history of DVT (deep vein thrombosis) (Primary Dx) 12/09/2024 10:00 AM EDT Ancillary Procedure [facility] - [facility] [address] [facility] [address] [place] [phone] PAD (peripheral artery disease) ([facility] V24); Ectasia of artery ([facility] V24) 12/07/2024 Telephone Vascular [facility] - [place] [address] [place] [phone] Jose Kauffman MD 12/06/2024 Anticoagulation - Warfarin Visit [facility] [address] [phone] Latasha Deleon LPN Personal history of DVT (deep vein thrombosis) (Primary Dx) 11/30/2024 Telephone Adult Medicine [address] [phone] Carmelita Henson RN 11/30/2024 Telephone [facility] [address] [facility] [address] [place] [phone] Yovany Giles MD 11/30/2024 Telephone Adult [address] [phone] Katie Gaytan MD 11/29/2024 Anticoagulation - Warfarin Visit Coumadin [address] [phone] Shonna White LPN Personal history of DVT (deep vein thrombosis) (Primary Dx) 11/22/2024 Anticoagulation - Warfarin Visit Coumadin [address] [phone] Shonna White LPN Personal history of DVT (deep vein thrombosis) (Primary Dx) 11/16/[address] [phone] Julia Oconnell PA 11/15/2024 Anticoagulation - Warfarin Visit Coumadin [address] [phone] Shonna White LPN Personal history of DVT (deep vein thrombosis) (Primary Dx) 11/08/2024 Anticoagulation - Warfarin Visit Coumadin [address] [phone] Latasha Deleon LPN Personal history of DVT (deep vein thrombosis) (Primary Dx) 11/01/2024 9:00 AM EDT Ancillary Procedure [facility] [address] [place] [phone] Longstanding persistent atrial fibrillation (CMS/HCC V24, CMS/HCC V28) 11/01/2024 Anticoagulation - Warfarin Visit Coumadin [address] [phone] Shonna White LPN Personal history of DVT (deep vein thrombosis) (Primary Dx) 10/29/2024 8:30 AM EDT Office Visit Adult Medicine [address] [phone] Katie Gaytan MD Cellulitis and abscess of leg (Primary Dx) 10/26/2024 Anticoagulation - Warfarin Visit Coumadin [address] [phone] Shonna White LPN Personal history of DVT (deep vein thrombosis) (Primary Dx) 10/20/2024 10:10 AM EDT Office Visit [facility] - [facility] 102 300 [facility] [address] [place] [phone] Radha Hudson NP Longstanding persistent atrial fibrillation (CMS/HCC V24, CMS/HCC V28) (Primary Dx); Chronic venous stasis; Chronic diastolic congestive heart failure (CMS/HCC V24, CMS/HCC V28); KIRILL (obstructive sleep apnea); Coronary artery disease involving [place] coronary artery of [place] heart without angina pectoris; Essential hypertension, benign; Pure hypercholesterolemia 10/20/2024 Telephone [facility] 102 300 [facility] [address] [place] [phone] Radha Hudson NP 10/20/2024 Telephone Vascular Surgery - [place] 300 [facility] 210 [place] [phone] Jeremiah Rodriguez [place] 10/12/2024 Anticoagulation - Warfarin Visit [address] [phone] Shonna White LPN Personal history of DVT [...] Bivalent, Or iginal + Ba.1 (Non-US Trademark COMIRNATstartuply Bivalent) 12/25/2021 Pfizer SARS-CoV-2 COVID-19, mRNA, LNP-S, [...] mellitus), t ype 2 with neurological complications ([facility]) Family History Medical History Relation [...] for your loved ones. For example, child adolescent care or elderly care for an older adult? [...] Description 01/21/2025 8:40 AM EDT Office Visit [facility] - [address] [place] [phone] Sarah Lee NP [address] [place] [address] [place] [phone] 03/30/2025 9:20 AM EST Office Visit Endocrinology - [place] [address] [place] [phone] Julia Oconnell PA [address] [place] [address] Health Maintenance Due Date Last Done Comments [...] 11:32 AM EDT PAD (peripheral artery disease) ([facility] V24) Ectasia of artery (CMS/HCC V24) PROTHROMBIN [...] 1:50 PM EDT Atrial fibrillation, unspecified type ([facility] V24, [facility]/HCC V28) Chronic diastolic congestive heart failure (CMS/HCC V24, [facility] V28) Encounter for lipid screening for cardiovascular [...] PSV 64 cm/s CV VAS LAB Left SUPERVISOR PACKING prox sys PSV 70 cm/s CV VAS [...] PSV 51 cm/s CV VAS LAB Right SUPERVISOR PACKING prox sys PSV 77 cm/s CV VAS [...] The mid peroneal artery has triphasic flow. Malariologist Details A reid scale, color and doppler analysis ultrasound was performed. During the study longitudinal views were obtained. Pulsed wave doppler was performed. Talia ZIMMERMAN CV VASCULAR PROCEDURES Final Result * (ABNORMAL) B-type natriuretic peptide (12/02/2024 9:29 AM EDT) BNP 266(H) <=100 pcg/mL LAB CHEMISTRY METHOD 12/02/2024 11:50 AM EDT [facility] Blood Venous blood specimen / Unknown Venipuncture / Unknown 12/02/2024 9:29 AM EDT 12/02/2024 9:29 AM EDT Sarah Jesus NODULIZER LAB BLOOD ORDERABLES Final Resu lt [facility] [address] [place] [address], * (ABNORMAL) Basic metabolic panel (12/02/2024 9:29 AM EDT) Sodium 139 133 - 145 mmol/L LAB CHEMISTRY METHOD 12/02/2024 12:42 PM [facility] Potassium 4.2 3.5 - 5.5 mmol/L LAB CHEMISTRY METHOD 12/02/2024 12:42 PM [facility] Chloride 103 96 - 110 mmol/L LAB CHEMISTRY METHOD 12/02/2024 12:42 PM [facility] CO2 32 21 - 32 mmol/L LAB CHEMISTRY METHOD 12/02/2024 12:42 PM [facility] Anion Gap 4 3 - 11 LAB CHEMISTRY METHOD 12/02/2024 12:42 PM [facility] Glucose 216(H) 70 - 100 mg/dL LAB CHEMISTRY METHOD 12/02/2024 12:42 PM [facility] BUN 17 5 - 25 mg/dL LAB CHEMISTRY METHOD 12/02/2024 12:42 PM [facility] Creatinine 0.98 0.70 - 1.30 mg/dL LAB CHEMISTRY METHOD 12/02/2024 12:42 PM [facility] eGFR 82 >=60 mL/min/1. 73m2 LAB CHEMISTRY METHOD 12/02/2024 12:42 PM [facility] Comment:Calculation based on the Chronic Kidney Disease Epidemiology Collaboration (CKD-EPI) equation refit without adjustment for race. BUN/Creatinine Ratio 17.3 LAB CHEMISTRY METHOD 12/02/2024 12:42 PM [facility] Calcium 8.6 8.5 - 10.5 mg/dL LAB CHEMISTRY METHOD 12/02/2024 12:42 PM [facility] Blood Venous blood specimen / Unknown Venipuncture / Unknown 12/02/2024 9:29 AM EDT 12/02/2024 9:29 AM EDT Sarah Lee NODULIZER LAB BLOOD ORDERABLES Final Resu lt Performing Organization Address [facility]/ZIP Co de Phone Number [facility] [address] [place] [address], [place] [phone] * (ABNORMAL) Hemoglobin A1c (12/02/2024 7:55 AM EDT) Hemoglobin A1C 6.8(H) <6.5 % LAB CHEMISTRY METHOD 12/02/2024 11:37 AM EDT [facility] Mean Bld Glu Estim. 148 mg/dL LAB CHEMISTRY METHOD 12/02/2024 11:37 AM EDT [facility] Blood Venous blood specimen / Unknown Venipuncture / Unknown 12/02/2024 7:55 AM EDT 12/02/2024 7:55 AM EDT Julia ZIMMERMAN LAB BLOOD ORDERABLES Final Resul t Performing Organization Address [facility] Co de Phone Number [facility] [address] [place] [address], [place] [phone] * (ABNORMAL) Digoxin level (12/02/2024 7:55 AM EDT) Digoxin Lvl 0.3(L) 0.5 - 2.0 ng/mL LAB CHEMISTRY METHOD 12/02/2024 11:16 AM EDT [facility] Blood Venous blood specimen / Unknown Venipuncture / Unknown 12/02/2024 7:55 AM EDT 12/02/2024 7:55 AM EDT Radha Hudson NODULIZER LAB BLOOD ORDERABLES Final Resu lt [facility] [address] [place] [address], * CARDIAC HOLTER MONITOR (REPORT GENERATED IN HOUSE) (11/01/2024 9:05 AM EDT) Anatomical Region Laterality Modality Cardiac Diagnost ic Narrative 11/03/2024 7:47 AM EDT [facility] DIAGNOSTIC TESTING DEPARTMENT [address] [facility], [address] [address] TEL: FAX: Type of Test: 24 Hour Holter Monitor Date of Test: 11/01/2024 Ordering Provider: Radha Hudson NP Reason for Test: Longstanding persistent atrial fibrillation PVCA Reproduction Artist Findings: 1: Atrial Fibrillation noted throughout recording. [...] LAB CHEMISTRY METHOD 08/25/2024 6:50 PM EDT [facility] Triglycerides 134 0 - 150 mg/dL LAB CHEMISTRY METHOD 08/25/2024 6:50 PM EDT [facility] HDL 39(L) >=40 mg/dL LAB CHEMISTRY METHOD 08/25/2024 6:50 PM EDT [facility] LDL Calculated 33 0 - 100 mg/dL LAB CHEMISTRY METHOD 08/25/2024 6:50 PM EDT [facility] VLDL Cholesterol Aramis 26.8 mg/dL LAB CHEMISTRY METHOD 08/25/2024 6:50 PM EDT [facility] Non HDL Chol. (LDL+VLDL) 60 <145 mg/dL LAB CHEMISTRY METHOD 08/25/2024 6:50 PM EDT [facility] Chol/HDL Ratio 2.5 0.0 - 4.4 LAB CHEMISTRY METHOD 08/25/2024 6:50 PM EDT [facility] Blood Venous blood specimen / Unknown Venipuncture / Unknown 08/25/2024 1:50 PM EDT 08/25/2024 1:50 PM EDT Jose Armando Oakley NODULIZER LAB BLOOD ORDERABLES Final R esult Performing Organization Address City/[facility]/ZIP Co de Phone Number [facility] [address] [place] [address], [place] [phone] * (ABNORMAL) Microalbumin creatinine urine ratio (08/25/2024 1:50 PM EDT) Creatinine, Urine 103.0 mg/dL LAB CHEMISTRY METHOD 08/25/2024 6:51 PM EDT [facility] Microalb, Ur 121.0(H) 0.0 - 29.0 mg/L LAB CHEMISTRY METHOD 08/25/2024 6:51 PM EDT [facility] Microalb/Crea t Ratio 117(H) <30 mg/g creat LAB CHEMISTRY METHOD 08/25/2024 6:51 PM EDT [facility] Urine Urine specimen obtained by clean catch procedure / Unknown Non-blood Collection / Unknown 08/25/2024 1:50 PM EDT 08/25/2024 1:50 PM EDT Jose Armando Oakley NODULIZER LAB URINE ORDERABLES Final R esult Performing Organization Address City/[facility]/ZIP Co de Phone Number [facility] [address] [place], [place] [address] [phone] * Diabetes Foot Exam (11/28/2023) Pathologist [facility] Diabetes: Annual Foot Exam Abstracted Historical Provider HEALTH MAINTENANCE Final Result * Colonoscopy (06/10/2018) Pathologist [facility] Colonoscopy No interpreta tion,abstr acted Anatomical Region Laterality Modality Other Historical Provider HEALTH MAINTENANCE Final Result * Hepatitis C Screening (03/13/2013) Pathologist [facility] Hepatitis C Screening Abstracted Historical Provider HEALTH MAINTENANCE Final Result from Last 3 Months or Most Recently Relevant to Health Maintenance Insurance [employer] MEDICARE Care Teams Maintenance Mechanic Technician Relationship Specialty Start Date End Date Katie Gaytan MD [address] [place] [phone] PCP - General 02/18/1999
[2025-01-10 07:25] LABS: Hematocrit 42.5 % (42.0-52.0); Hemoglobin 12.9 g/dl (14.0-18.0); Imm Gran Abs Auto 0.01 X10*3/uL (0.00-0.03); Imm Gran Pct Auto 0.2 % (0.0-0.4); Lymphocytes Absolute Auto 0.9 X10*3/uL (1.2-4.9); Mean Corpuscular HGB Conc 30.4 g/dl (31.0-36.0); Mean Corpuscular Hemoglobin 24.2 pg (27.0-33.0); Mean Corpuscular Volume 79.7 fL (80.0-98.0); NRBC Abs Auto 0.000 X10*3/uL (0.0-0.012); NRBC Pct Auto 0.0 /100WBC (0.0-0.2); Platelet Count 167 X10*3/uL (160-400); Red Blood Count 5.33 X10*6/uL (4.60-5.80); White Blood Count 4.9 X10*3/uL (4.8-10.8)
[2025-01-10 07:41] LABS: Anion Gap 11 (12-20); Blood Urea Nitrogen 18 mg/dL (9-16); Calcium 9.1 mg/dL (8.4-10.2); Carbon Dioxide 29 mmol/L (22-29); Chloride 100 mmol/L (96-108); Estimated Glomerular Filt Rate > 60; Potassium 4.5 mmol/L (3.3-5.1); Sodium 135 mmol/L (135-145)
== END 2025-01-10 07:12 | disposition home or self-care (01) ==
LOC: HO.MMNH1L 07:11
PROVIDERS: Visit Provider Physician Assistant Medical
DX: E11.9 Type 2 diabetes mellitus without complications (principal); I10 Essential (primary) hypertension
CPT/HCPCS: 36415; 80048; 85025

== ENCOUNTER 2025-01-17 06:27 | Outpatient (REF) | payer MEDICARE, SELFPAY ==
--- OUTSIDE RECORDS SUMMARY | 2024-12-31 04:30 | XMS_ITS ---
Author Organization [facility] Address [address] [address] Care Team Providers Care Advance Scout Name Role Phone Katie Gaytan Primary Care Provider UnavailNAT Villalobos [phone] REASON FOR VISIT 9wk DM Encounters Encounter Location Date Provider Diagnosis [facility] [address] [address] 12/31/2024 NAT BROWN Plan Of Treatment No Information Progress Notes * Randy TANDOB:1950 (74 yo M)Acc No.[id number]:12/31/2024 Progress Note Patient: Daniel HORNin Ludin Provider: Tono Brown DPM :1950 A ge:74 Y S ex:Male Date:12/31/2024 Address:[address] [place] [address] [facility] [id number] Pcp:Katie Gaytan Subjective: * Chief Complaints: * 1 . 9wk DM. * Medical History: Objective: * Vitals: Assessment: Plan: * Treatment: * Billing Information: * Visit Code: * Procedure Codes: * Electronic signature of EMILY BROWN D.P.M on 01/17/2025 at 06:34 AM EDT Sign off status: Pending * Provider: Tono Brown DPM Date: 12/31/2024 Generated for Printi ng/Faxing/eTransmitting on: 01/17/2025 06:34 AM EDT
--- OUTSIDE RECORDS SUMMARY | 2025-01-03 04:30 | XMS_ITS ---
Author Organization [facility] Address [address] [address] Care Team Providers Care Pumper Helper Name Role Phone Katie Gaytan Primary Care Provider UnavailNAT Villalobos [phone] REASON FOR VISIT 9wk DM Encounters Encounter Location Date Provider Diagnosis [facility] [address] [address] 01/03/2025 NAT BROWN Plan Of Treatment No Information Progress Notes * Randy TANDOB:1950 (74 yo M)Acc No.[id number]:01/03/2025 Progress Note Patient: Daniel HORNin Ludin Provider: Tono Brown DPM :1950 A ge:74 Y S ex:Male Date:01/03/2025 Address:[address] [place] [address] [facility] [id number] Pcp:Katie Gaytan Subjective: * Chief Complaints: * 1 . 9wk DM. * Medical History: Objective: * Vitals: Assessment: Plan: * Treatment: * Billing Information: * Visit Code: * Procedure Codes: * Electronic signature of EMILY BROWN D.P.M on 01/17/2025 at 06:34 AM EDT Sign off status: Pending * Provider: Tono Brown DPM Date: 01/03/2025 Generated for Printi ng/Faxing/eTransmitting on: 01/17/2025 06:34 AM EDT
[2025-01-17 06:10] LABS: MANUAL DIFF FLAG NO
--- OUTSIDE RECORDS SUMMARY | 2025-01-17 06:34 | XMS_ITS | Clinical Summary ---
Author Organization [facility] Address [address] [facility] [address] [place] [address] Phone Care Team Providers Care Director Labor Standards Name Role Phone Katie Gaytan MD Primary Care Provider [phone] Social History Tobacco Use Types Packs/Day Years [...] 2) 2002 Adult Td,Tdap Booster 03/04/2023 03/04/2013 INFLUENZA VACCINE (#1) 2024 COVID-19 VACCINE (1 - 2023-2 5 season) 2024 RSV VACCINE (1 - 1-dose 75+ series) [...] topic Medical Devices Not on file Insurance [facility] MEDICARE REPLACEMENT MEDICARE PART A & B [facility] MEDICARE REPLACEMENT [place] [id number] MEDICARE PART A & B Member Subscriber Plan / Payer (Ef fective 2017-Present) Name:Randy Tan Member ID:[id number] Relation to Subscriber:Self Name:Randy Tan Subscriber ID:[id number] Payer ID:[id number] Group ID:Not on file Type:Medicare Address: [employer] [address] MEDICARE REPLACEMENT MEDICARE PART A & B MEDICARE REPLACEMENT MEDICARE PART A & B MEDICARE REPLACEMENT MEDICARE PART A & B [facility] MEDICARE REPLACEMENT MEDICARE PART A & B Care Teams Director Labor Standards Relationship Specialty Start Date End Date Katie Gaytan MD [address] [place] [address] PCP - General Internal Medicine 04/17/23 Additional Source Comments The information contained in this document represents components of the legal health record. It is not the complete legal health record.[facility]
--- OUTSIDE RECORDS SUMMARY | 2025-01-17 06:34 | XMS_ITS | Patient Health Record ---
Author Organization [facility] Address [address] [facility] [address] [facility] [place] [address] Care Team Providers Care Tool And Die Repairer Name Role Phone Katie Gaytan Primary Care Provider NAT Bai Unavailable [phone] Allergies Allergen (clinical drug ingredient) Drug/Non Drug [...] Polyneuropathy due to type 2 diabetes mellitus (910322268) Type 2 diabetes mellitus with diabetic polyneuropathy (E11.42) Active confirmed Problem Long-term current use of insulin (625342052) MCFP (current) use of insulin (Z79.4) Active confirmed Problem Peripheral vascular disease (917788287) PVD (peripheral vascular disease) (I73.9) Active confirmed Problem Peripheral venous insufficiency (61127524) Venous stasis dermatitis of both lower extremities (I87.2) Active confirmed Problem Ulcer of right lower extremity, limited to breakdown of skin (L97.911) Active confirmed Problem Ankle ulcer (369481789) Skin ulcer of right ankle with fat layer exposed (L97.312) Active confirmed Vital Signs Heart Rate 87 /min 10/27/2024 Temperature 96.6 degrees Fahrenheit 10/27/2024 Respiratory Rate 20 /min 10/27/2024 Height 6ft 4in in 10/27/2024 Weight 258.2 lbs 10/27/2024 BMI 31.43 kg/m2 10/27/2024 Encounters Encounter Location Date Provider Diagnosis [facility] [address] [phone] 01/30/2024 NATMARVIN BROWN Type 2 diabetes mellitus with diabetic polyneuropathy E11.42 ; Dystrophic nail L60.3 ; Pain in left toe(s) M79.675 ; Pain in right toe(s) M79.674 ; Venous stasis dermatitis of both lower extremities I87.2 and Localized swelling of both lower legs R22.43 [facility] [address] [phone] 04/05/2024 NATMARVIN BROWN Type 2 diabetes mellitus with diabetic polyneuropathy E11.42 ; Dystrophic nail L60.3 ; Pain in left toe(s) M79.675 ; Pain in right toe(s) M79.674 ; Venous stasis dermatitis of both lower extremities I87.2 and Localized swelling of both lower legs R22.43 [facility] [address] 06/18/2024 NAT BROWN Type 2 diabetes mellitus with diabetic polyneuropathy E11.42 ; Dystrophic nail L60.3 ; Pain in left toe(s) M79.675 ; Pain in right toe(s) M79.674 ; Venous stasis dermatitis of both lower extremities I87.2 and Localized swelling of both lower legs R22.43 [facility] [address] 08/20/2024 NAT BROWN Type 2 diabetes mellitus with diabetic polyneuropathy E11.42 ; Tinea pedis, right B35.3 ; Dystrophic nail L60.3 ; Pain in left toe(s) M79.675 ; Pain in right toe(s) M79.674 ; Venous stasis dermatitis of both lower extremities I87.2 and Localized swelling of both lower legs R22.43 [facility] [address] 10/27/2024 NAT BROWN Ulcer of right lower extremity, limited to breakdown of skin L97.911 ; Cellulitis of right leg L03.115 ; Type 2 diabetes mellitus with diabetic polyneuropathy E11.42 ; Dystrophic nail L60.3 ; Pain in right toe(s) M79.674 and Pain in left toe(s) M79.675 [facility] [address] 06/18/2024 NAT BROWN [facility] [address] 06/18/2024 NAT BROWN [facility] [address] 08/23/2024 NAT BROWN Assessments Encounter Date [...] PO BID x 10 days sent to [facility] pharmacy per the patient's request. Pt [...] Aseptic debridement of toenails x 10 with foot cutter and curette, pt tolerated well. Discussed [...] Aseptic debridement of toenails x 10 with foot cutter and curette, pt tolerated well. Discussed [...] Aseptic debridement of toenails x 10 with foot cutter and curette, pt tolerated well. Discussed [...] Aseptic debridement of toenails x 10 with foot cutter and curette, pt tolerated well. Discussed [...] Aseptic debridement of toenails x 10 with foot cutter and curette, pt tolerated well. Discussed [...] disease. I will request the records from [facility] for his most recent studies. He needs [...] Date Coverage End Date [employer] Medicare [id number] [address] [address] [place] [address] [id number] Molly dueñas Randy Self - patient is [...] Date(Month/Year) inguinal hernia repair cardiac stent - [facility] 11/2022 Hospitalization History Reason Date(Month/Year) Afib 02/2023 Afib, water retention 01/2023
--- OUTSIDE RECORDS SUMMARY | 2025-01-17 06:34 | XMS_ITS | Clinical Summary ---
Author Organization [address] [place] [address] [place] [phone] Phone Care Team Providers Care Dye Lab Technician Name Role Phone Katie Gaytan MD Primary Care Provider [phone] Allergies Active Allergy Reactions Criticality Noted Date [...] tablet 2 06/11/19 25 Active blood-glucose meter,continuous (G-modeyle Pat 3 [place]) miscIndications:D M (diabetes mellitus), type 2 with [...] calf with varicose veins, unspecified ulcer stage ([facility] V24, [facility] V28),Venous stasis ulcer of right calf limited to breakdown of skin with varicose veins ([facility] V24, [facility] V28),Personal history of DVT (deep [...] current use of insulin, unspecified CKD stage ([facility] V24, [facility] V28) Change sensor every 15 [...] (diabetes mellitus), type 2 with neurological complications ([facility] V24, [facility] V28) Use to check bs daily 1 each 11/17/19 25 Active blood sugar diagnostic (Contour Next Test Strips) test stripIndications: DM (diabetes mellitus), type 2 with neurological complications ([facility] V24, [facility] V28) Use to check bs 3 times a day 100 each 12 11/17/19 25 026 Active lancets (Microlet Lancet) lancetsIndication s:DM (diabetes mellitus), type 2 with neurological complications ([facility] V24, [facility] V28) Use to check bs 3 times daily 100 each 12 11/17/19 25 026 Active Active Problems Problem Noted Date Diagnosed Date Personal history of DVT (deep vein thrombosis) 1 04/27/2023 Hypotension 05/16/2023 Sepsis ([facility] V24, [facility] V28) 05/16/2023 Urinary tract infection with hematuria Overview (02/02/2024): Urosepsis, please see note 04/30/23, obstructive uropathy likely from BPH, requiring prolonged Julio cath/bag. Following with urology Dr. 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 Embolism and thrombosis of a rteries of lower extremity ([facility] V24, [facility] V28) 03/18/2017 Umbilical hernia without obstruction and without gangrene 03/02/2015 Assessment & Plan (03/24/2024 1:07 PM EST): Other specified anemias 02/15/2015 DM ketoacidosis type II, unc ontrolled ([facility] V24, [facility] V28) 09/21/2014 Microalbuminuria 09/21/2014 Nuclear [...] due t o type 2 diabetes mellitus ([facility] V24, [facility] V28) 05/29/2005 Overview (02/02/2024): Last [...] continue to follow with your specilaist at [facility], and get me the record. 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, followed by hematology IMO update Esophageal reflux 05/29/2005 Overview (02/02/2024): The patient underwent upper GI endoscopy 08.30.05 at [facility] for the evaluation of reflux and [...] Plan (03/24/2024 1:07 PM EST): Morbid obesity ([facility] V24, [facility] V28) 2005 Pure hypercholesterolemia 05/29/2005 [...] Care Team Description 12/27/2024 Telephone Adult Medicine [address] [phone] Katie Gaytan MD 12/22/2024 Telephone [facility] [address] [facility] 154 [place] [phone] Sarah Lee NP 12/13/2024 Anticoagulation - Warfarin Visit [facility] [address] [phone] Latasha Deleon LPN Personal history of DVT (deep vein thrombosis) (Primary Dx) 12/09/2024 10:00 AM EDT Ancillary Procedure [facility] [address] [facility] [address] [place] [phone] PAD (peripheral artery disease) ([facility] V24); Ectasia of artery ([facility] V24) 12/07/2024 Telephone V[facility] [place] [address] [place] [phone] Jose Kauffman MD 12/06/2024 Anticoagulation - Warfarin Visit [facility] [address] [phone] Latasha Deleon LPN Personal history of DVT (deep vein thrombosis) (Primary Dx) 11/30/2024 Telephone Adult Medicine [address] [phone] Carmelita Henson RN 11/30/2024 Telephone [facility] [address] [facility] 154 [place] [phone] Yovany Giles MD 11/30/2024 Telephone Adult [address] [phone] Katie Gaytan MD 11/29/2024 Anticoagulation - Warfarin Visit Coumadin [address] [phone] Shonna White LPN Personal history of DVT (deep vein thrombosis) (Primary Dx) 11/22/2024 Anticoagulation - Warfarin Visit Coumadin [address] [phone] Shonna White LPN Personal history of DVT (deep vein thrombosis) (Primary Dx) 11/16/[address] [phone] Julia Oconnell PA 11/15/2024 Anticoagulation - Warfarin Visit Coumadin [address] [phone] Shonna White LPN Personal history of DVT (deep vein thrombosis) (Primary Dx) 11/08/2024 Anticoagulation - Warfarin Visit Coumadin [address] [phone] Latasha Deleon LPN Personal history of DVT (deep vein thrombosis) (Primary Dx) 11/01/2024 9:00 AM EDT Ancillary Procedure [facility] - [address] [place] [phone] Longstanding persistent atrial fibrillation (CMS/HCC V24, CMS/HCC V28) 11/01/2024 Anticoagulation - Warfarin Visit Coumadin [address] [phone] Shonna White LPN Personal history of DVT (deep vein thrombosis) (Primary Dx) 10/29/2024 8:30 AM EDT Office Visit Adult Medicine [address] [phone] Katie Gaytan MD Cellulitis and abscess of leg (Primary Dx) 10/26/2024 Anticoagulation - Warfarin Visit Coumadin [address] [phone] Shonna White LPN Personal history of DVT (deep vein thrombosis) (Primary Dx) 10/20/2024 10:10 AM EDT Office Visit [facility] [address] [facility] 102 [place] [phone] Radha Hudson NP Longstanding persistent atrial fibrillation (CMS/HCC V24, CMS/HCC V28) (Primary Dx); Chronic venous stasis; Chronic diastolic congestive heart failure (CMS/HCC V24, CMS/HCC V28); KIRILL (obstructive sleep apnea); 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; Essential hypertension, benign; Pure hypercholesterolemia 10/20/2024 Telephone [facility] [address] [facility] 102 [place] [phone] Radha Hudson NP 10/20/2024 Telephone Vascular Surgery - [place] 300 [facility] 210 [place] [phone] Jeremiah Rodriguez MA from Last 3 Months Immunizations Immunization Administration Dates Next Due H1N1 Inj Preservative Free 03/09/2009 Influenza trivalent, 0.5mL ( Fluad) 65yo and older 12/25/2021,01/02/2021,01/19/2019 Influenza trivalent, 0.5mL, preservative free (Fluarix; FluLaval; Fluzone) ages 6mo and older (Afluria) 3 years and older 01/16/2011,02/20/2010,01/14/2008,01/19,03/14/2006,01/31/2005 Influenza, Unspecified 01/02/2021,2017,02/05/2017,02/02,02/02/2015,01/24/2014,02/04/2012 Pfizer Covid-19 Bivalent, Or iginal + Ba.1 (Non-US Trademark [facility] Bivalent) 12/25/2021 Pfizer SARS-CoV-2 COVID-19, mRNA, LNP-S, [...] (diabetes mellitus), type 2 with neurological complications ([facility]/HCC V24, CMS/HCC V28) 09/01/2017 DX:DM (diabetes mellitus), t ype 2 with neurological complications ([facility]) Family History Medical History Relation [...] your loved ones. For example, child support specialist or elderly care for an older adult? [...] Date Recorded What is your living situation? Unrecognized valu e 03/22/2024 Sex and Gender Information Value Date Recorded [...] Description 01/21/2025 8:40 AM EDT Office Visit [facility] [address] [facility] 154 [place] [phone] Sarah Lee NP [address] [place] [address] [place] [phone] 03/30/2025 9:20 AM EST Office Visit Endocrinology - [place] [address] [place] [phone] Julia Oconnell PA [address] [place] [address] Health Maintenance Due Date Last Done Comments [...] 11:32 AM EDT PAD (peripheral artery disease) ([facility] V24) Ectasia of artery ([facility] V24) PROTHROMBIN TIME WITH INR 12/06/2024 PROTHROMBIN [...] 10/26/2024 PROTHROMBIN TIME WITH INR Routine 10/26/2024 MICROALBUMIN CREATININE URINE RATIO Routine 08/25/2024 1:50 [...] Anatomical Region Laterality Modality Radiographic Tala ging us Provider [facility] XR PROCEDURES Final Result * External CT Report (12/20/2024) Only the most recent of6 resultswithin the time period is included. Anatomical Region Laterality Modality Computed Tomogra phy us Provider [facility] CT PROCEDURES Final Result * Prothrombin time with INR (12/13/2024) Only the most recent of16 resultswithin the time period is included. us [...] PSV 64 cm/s CV VAS LAB Left BASEBALL INSPECTOR AND REPAIRER prox sys PSV 70 cm/s CV VAS [...] PSV 51 cm/s CV VAS LAB Right BASEBALL INSPECTOR AND REPAIRER prox sys PSV 77 cm/s CV VAS [...] The mid peroneal artery has triphasic flow. Chlorine Plant Operator Details A reid scale, color and doppler analysis ultrasound was performed. During the study longitudinal views were obtained. Pulsed wave doppler was performed. Talia ZIMMERMAN CV VASCULAR PROCEDURES Final Result * (ABNORMAL) B-type natriuretic peptide (12/02/2024 9:29 AM EDT) [facility] BNP 266(H) <=100 pcg/mL LAB CHEMISTRY METHOD 12/02/2024 11:50 AM EDT [facility] Blood Venous blood specimen / Unknown Venipuncture / Unknown 12/02/2024 9:29 AM EDT 12/02/2024 9:29 AM EDT Sarah Lee NP LAB BLOOD ORDERABLES Final Resu lt [facility] [address] [place] [address], [place] [phone] * (ABNORMAL) Basic metabolic panel (12/02/2024 9:29 AM EDT) [facility] Sodium 139 133 - 145 mmol/L LAB CHEMISTRY METHOD 12/02/2024 12:42 PM [facility] Potassium 4.2 3.5 - 5.5 mmol/L LAB CHEMISTRY METHOD 12/02/2024 12:42 PM [facility] Chloride 103 96 - 110 mmol/L LAB CHEMISTRY METHOD 12/02/2024 12:42 PM [facility] CO2 32 21 - 32 mmol/L LAB CHEMISTRY METHOD 12/02/2024 12:42 PM [facility] Anion Gap 4 3 - 11 LAB CHEMISTRY METHOD 12/02/2024 12:42 PM [facility] Glucose 216(H) 70 - 100 mg/dL LAB CHEMISTRY METHOD 12/02/2024 12:42 PM [facility] BUN 17 5 - 25 mg/dL LAB CHEMISTRY METHOD 12/02/2024 12:42 PM [facility] Creatinine 0.98 0.70 - 1.30 mg/dL LAB CHEMISTRY METHOD 12/02/2024 12:42 PM [facility] eGFR 82 >=60 mL/min/1. 73m2 LAB CHEMISTRY METHOD 12/02/2024 12:42 PM [facility] Comment:Calculation based on the Chronic Kidney Disease Epidemiology Collaboration (CKD-EPI) equation refit without adjustment for race. BUN/Creatinine Ratio 17.3 LAB CHEMISTRY METHOD 12/02/2024 12:42 PM [facility] Calcium 8.6 8.5 - 10.5 mg/dL LAB CHEMISTRY METHOD 12/02/2024 12:42 PM [facility] Blood Venous blood specimen / Unknown Venipuncture / Unknown 12/02/2024 9:29 AM EDT 12/02/2024 9:29 AM EDT us Sarah Lee NP LAB BLOOD ORDERABLES Final Resu lt [facility] [address] [place] [address], [place] [phone] * (ABNORMAL) Hemoglobin A1c (12/02/2024 7:55 AM EDT) Hemoglobin A1C 6.8(H) <6.5 % LAB CHEMISTRY METHOD 12/02/2024 11:37 AM EDT [facility] Mean Bld Glu Estim. 148 mg/dL LAB CHEMISTRY METHOD 12/02/2024 11:37 AM EDT [facility] Blood Venous blood specimen / Unknown Venipuncture / Unknown 12/02/2024 7:55 AM EDT 12/02/2024 7:55 AM EDT Julia ZIMMERMAN LAB BLOOD ORDERABLES Final Resul t [facility] [address] [place] [address], [place] [phone] * (ABNORMAL) Digoxin level (12/02/2024 7:55 AM EDT) Pathologist [facility] Digoxin Lvl 0.3(L) 0.5 - 2.0 ng/mL LAB CHEMISTRY METHOD 12/02/2024 11:16 AM EDT [facility] Blood Venous blood specimen / Unknown Venipuncture / Unknown 12/02/2024 7:55 AM EDT 12/02/2024 7:55 AM EDT us Radha Hudson NP LAB BLOOD ORDERABLES Final Resu lt [facility] [address] [place] [address], [place] [phone] * CARDIAC HOLTER MONITOR (REPORT GENERATED IN HOUSE) (11/01/2024 9:05 AM EDT) Anatomical Region Laterality Modality Cardiac Diagnost ic Narrative 11/03/2024 7:47 AM EDT [facility] DIAGNOSTIC [facility]ING DEPARTMENT [address] [facility] [id number], [place] [address] TEL: FAX: Type of Test: 24 Hour Holter Monitor Date of Test: 11/01/2024 Ordering Provider: Radha Hudson NP Reason for Test: Longstanding persistent atrial fibrillation [employer] Television Engineering Teacher Findings: 1: Atrial Fibrillation noted throughout recording. [...] LAB CHEMISTRY METHOD 08/25/2024 6:50 PM EDT [facility] Triglycerides 134 0 - 150 mg/dL LAB CHEMISTRY METHOD 08/25/2024 6:50 PM T [facility] HDL 39(L) >=40 mg/dL LAB CHEMISTRY METHOD 08/25/2024 6:50 PM T [facility] LDL Calculated 33 0 - 100 mg/dL LAB CHEMISTRY METHOD 08/25/2024 6:50 PM T [facility] VLDL Cholesterol Aramis 26.8 mg/dL LAB CHEMISTRY METHOD 08/25/2024 6:50 PM EDT [facility] Non HDL Chol. (LDL+VLDL) 60 <145 mg/dL LAB CHEMISTRY METHOD 08/25/2024 6:50 PM EDT [facility] Chol/HDL Ratio 2.5 0.0 - 4.4 LAB CHEMISTRY METHOD 08/25/2024 6:50 PM EDT [facility] Blood Venous blood specimen / Unknown Venipuncture / Unknown 08/25/2024 1:50 PM EDT 08/25/2024 1:50 PM EDT Jose Armando Oakley EXTRUSION PRESS SUPERVISOR LAB BLOOD ORDERABLES Final R esult Performing Organization Address City/[facility]/ZIP Co de Phone Number [facility] [address] [place] [address], [place] [phone] * (ABNORMAL) Microalbumin creatinine urine ratio (08/25/2024 1:50 PM EDT) [facility] Creatinine, Urine 103.0 mg/dL LAB CHEMISTRY METHOD 08/25/2024 6:51 PM EDT [facility] Microalb, Ur 121.0(H) 0.0 - 29.0 mg/L LAB CHEMISTRY METHOD 08/25/2024 6:51 PM EDT [facility] Microalb/Crea t Ratio 117(H) <30 mg/g creat LAB CHEMISTRY METHOD 08/25/2024 6:51 PM EDT [facility] Urine Urine specimen obtained by clean catch procedure / Unknown Non-blood Collection / Unknown 08/25/2024 1:50 PM EDT 08/25/2024 1:50 PM EDT Jose Armando Oakley EXTRUSION PRESS SUPERVISOR LAB URINE ORDERABLES Final R esult [facility] [address] [place] [address], [place] [phone] * Diabetes Foot Exam (11/28/2023) [facility] Diabetes: Annual Foot Exam Abstracted Historical Provider HEALTH MAINTENANCE Final Result * Colonoscopy (06/10/2018) [facility] Colonoscopy No interpreta tion,abstr acted Anatomical Region Laterality Modality Other us Historical Provider HEALTH MAINTENANCE Final Result * Hepatitis C Screening (03/13/2013) Hepatitis C Screening Abstracted Historical Provider HEALTH MAINTENANCE Final Result from Last 3 Months or Most Recently Relevant to Health Maintenance Insurance [employer] MEDICARE Care Teams Dye Lab Technician Relationship Specialty Start Date End Date Katie Gaytan MD [address] [place] [address] PCP - General 02/18/1999
--- OUTSIDE RECORDS SUMMARY | 2025-01-17 06:34 | XMS_ITS | Encounter Summary ---
Author Organization [facility] Address [address] [place] [address] Care Team Providers Care Stoker Installer Name Role Phone Katie Gaytan MD Primary Care Provider Encounter Details Date Type Department Care Team (Latest Contact Info) Description 03/02/2024 Anticoagulation - Warfarin Visit [facility] [address] [phone] Shonna White LPN Personal history of DVT [...] Description 01/21/2025 8:40 AM EDT Office Visit [facility] [address] [facility] [address] [place] [address] Sarah Lee, TAMAR [address] [place] [address] [place] [address] 03/30/2025 9:20 AM EST Office Visit Endocrinology [facility] [address] [place] [address] Julia Oconnell PA [address] [place] [address] documented as of this encounter Visit Diagnoses Diagnosis Personal history of DVT (deep vein thrombosis)- Primary Personal history of venous thrombosis and embolism documented in this encounter Care Teams Stoker Installer Relationship Specialty Start Date End Date Katie Gaytan MD [address] [place] [address] PCP - General 02/18/1999 documented as of this encounter
--- OUTSIDE RECORDS SUMMARY | 2025-01-17 06:34 | XMS_ITS | Encounter Summary ---
Author Organization [facility] Address [address] [place] [address] Care Team Providers Care Net Repairer Name Role Phone Katie Gaytan MD Primary Care Provider [phone] Encounter Details Date Type Department Care Team ([facility] st Contact Info) Description 12/27/2024 Telephone Adult Medicine [facility] [address] [place] [phone] Katie Gaytan MD [address] [place] [address] Social History Tobacco Use Types Packs/Day Years [...] for your loved ones. For example, children's tutor nursery or elderly care for an older adult? [...] been hospitalized for a couple week at [facility] reason why Patient missed his appointment on 12/24/24. Patient's Partner looking for call back ( She is Emergency Contact but we have No updated Verbal Release on file orHealthcare Proxy) documented in this encounter Plan of Treatment Upcoming Encounters Date Type Department Care Team (Late st Contact Info) Description 01/21/2025 8:40 AM EDT Office Visit [facility] - [address] [place] [address] Sarah Lee, TAMAR [address] [place] [address] [place] [address] 03/30/2025 9:20 AM EST Office Visit Endocrinology - [place] [address] [place] [address] Julia Oconnell PA [address] [place] [address] documented as of this encounter Visit Diagnoses Not on filedocumented in this encounter Additional Health Concerns Assessment Noted Time PHQ-9 Depression Total Score: 0 03/22/20 10:44 AM EST A fall risk assessment has been complete d for the patient 03/20/2024 12:04 PM EST documented as of this encounter Care Teams Net Repairer Relationship Specialty Start Date End Date Katie Gaytan MD [address] [place] [id number] PCP - General 02/18/1999 documented as of this encounter
[2025-01-17 07:02] LABS: Hematocrit 42.2 % (42.0-52.0); Hemoglobin 12.7 g/dl (14.0-18.0); Imm Gran Abs Auto 0.01 X10*3/uL (0.00-0.03); Imm Gran Pct Auto 0.2 % (0.0-0.4); Lymphocytes Absolute Auto 1.0 X10*3/uL (1.2-4.9); Mean Corpuscular HGB Conc 30.1 g/dl (31.0-36.0); Mean Corpuscular Hemoglobin 24.0 pg (27.0-33.0); Mean Corpuscular Volume 79.6 fL (80.0-98.0); NRBC Abs Auto 0.000 X10*3/uL (0.0-0.012); NRBC Pct Auto 0.0 /100WBC (0.0-0.2); Platelet Count 163 X10*3/uL (160-400); Red Blood Count 5.30 X10*6/uL (4.60-5.80); White Blood Count 5.1 X10*3/uL (4.8-10.8)
[2025-01-17 07:21] LABS: Anion Gap 12 (12-20); Blood Urea Nitrogen 18 mg/dL (9-16); Calcium 8.6 mg/dL (8.4-10.2); Carbon Dioxide 26 mmol/L (22-29); Chloride 105 mmol/L (96-108); Estimated Glomerular Filt Rate > 60; Potassium 4.4 mmol/L (3.3-5.1); Sodium 139 mmol/L (135-145)
== END 2025-01-17 06:28 | disposition home or self-care (01) ==
LOC: HO.MMNH1L 06:27
PROVIDERS: Visit Provider Physician Assistant Medical
DX: I10 Essential (primary) hypertension (principal); E11.9 Type 2 diabetes mellitus without complications
CPT/HCPCS: 36415; 80048; 85025

== ENCOUNTER 2025-01-23 17:55 | Emergency (ER) | payer MEDICARE, SELFPAY ==
--- OUTSIDE RECORDS SUMMARY | 2024-12-31 04:30 | XMS_ITS ---
Author Organization [facility] Address [address] [address] Care Team Providers Care Ship Pilot Dispatcher Name Role Phone Katie Gaytan Primary Care Provider UnavailNAT Villalobos [phone] REASON FOR VISIT 9wk DM Encounters Encounter Location Date Provider Diagnosis [facility] [address] [address] 12/31/2024 NAT BROWN Plan Of Treatment No Information Progress Notes * Randy TANDOB:1950 (74 yo M)Acc No.[id number]:12/31/2024 Progress Note Patient: Daniel HORNin Ludin Provider: Tono Brown DPM :1950 A ge:74 Y S ex:Male Date:12/31/2024 Address:[address] [place] [address] [facility] [id number] Pcp:Katie Gaytan Subjective: * Chief Complaints: * 1 . 9wk DM. * Medical History: Objective: * Vitals: Assessment: Plan: * Treatment: * Billing Information: * Visit Code: * Procedure Codes: * Electronic signature of Hortencia TORRESPAndrew on 01/23/2025 at 06:59 PM EDT Sign off status: Pending * Provider: Tono Brown DPM Date: 0 12/31/2024 Generated for Printi ng/Faxing/eTransmitting on: 1 06:59 PM EDT
--- OUTSIDE RECORDS SUMMARY | 2025-01-03 04:30 | XMS_ITS ---
Author Organization [facility] Address [address] [address] Care Team Providers Care Director Of Infection Control Name Role Phone Katie Gaytan Primary Care Provider UnavailNAT Villalobos [phone] REASON FOR VISIT 9wk DM Encounters Encounter Location Date Provider Diagnosis [facility] [address] [address] 01/03/2025 NAT BROWN Plan Of Treatment No Information Progress Notes * Randy TANDOB:1950 (74 yo M)Acc No.[id number]:01/03/2025 Progress Note Patient: Daniel HORNin Ludin Provider: Tono Brown DPM :1950 A ge:74 Y S ex:Male Date:01/03/2025 Address:[address] [place] [address] [facility] [id number] Pcp:Katie Gaytan Subjective: * Chief Complaints: * 1 . 9wk DM. * Medical History: Objective: * Vitals: Assessment: Plan: * Treatment: * Billing Information: * Visit Code: * Procedure Codes: * Electronic signature of Hortencia TORRESPAndrew on 01/23/2025 at 07:00 PM EDT Sign off status: Pending * Provider: Tono Brown DPM Date: 0 01/03/2025 Generated for Printi ng/Faxing/eTransmitting on: 1 07:00 PM EDT
--- NOTE | ~2025-01-23 | CT_ITS ---
CLINICAL HISTORY: renal colic, hematuria CT abdomen and pelvis without contrast Comparison: 05/27/2024 Findings: Bilateral lower lobe atelectasis. Small left pleural effusion noted. Cardiomegaly with coronary calcification. No acute bony abnormalities. Liver and spleen within normal limits. Pancreas and adrenal glands unremarkable. Gallbladder within normal limits. No bilateral renal stone or hydronephrosis. No focal renal abnormality or ureteral dilation. Small renal cysts noted. No evidence for aortic aneurysm. No free fluid or adenopathy in the pelvis. No diverticulitis. Appendix unremarkable. Enlarged heterogeneous prostate. Impression: No acute processes This document has been electronically signed by: Hector Doherty MD on 01/23/2025 21:36:02
[2025-01-23 18:04] VITALS: BP 118/72; PULSE 77; O2SAT 96
[2025-01-23 18:07] VITALS: BP 105/71; PULSE 80; RESP 18; TEMP 36.6; O2SAT 96; BMI 30.6
[2025-01-23 18:12] VITALS: BP 105/71; PULSE 80; RESP 18; TEMP 36.6; O2SAT 96
--- NOTE | 2025-01-23 18:15 | PC.NURSE ---
74 M coming from rehab(difficulty walking since hospitilization) with blood in urine since last night, passed some clots. A+OX4, calm, cooperative. Pt sts he is able to pee but has had some blood in urine, came in to get checked out. pt denies any n/v/c/d, on BPH meds and lasix. Pt used to ambulate without difficulty 1 month ago but now requires a walker.
[2025-01-23 18:30] LABS: MANUAL DIFF FLAG NO
[2025-01-23 18:31] LABS: Hematocrit 41.1 % (42.0-52.0); Hemoglobin 13.0 g/dl (14.0-18.0); Imm Gran Abs Auto 0.03 X10*3/uL (0.00-0.03); Imm Gran Pct Auto 0.4 % (0.0-0.4); Lymphocytes Absolute Auto 1.0 X10*3/uL (1.2-4.9); Mean Corpuscular HGB Conc 31.6 g/dl (31.0-36.0); Mean Corpuscular Hemoglobin 24.6 pg (27.0-33.0); Mean Corpuscular Volume 77.7 fL (80.0-98.0); NRBC Abs Auto 0.000 X10*3/uL (0.0-0.012); NRBC Pct Auto 0.0 /100WBC (0.0-0.2); Platelet Count 211 X10*3/uL (160-400); Red Blood Count 5.29 X10*6/uL (4.60-5.80); White Blood Count 6.9 X10*3/uL (4.8-10.8)
[2025-01-23 18:46] LABS: Alanine Aminotransferase 17 U/L (0-40); Albumin Level 3.3 g/dL (3.5-5.0); Alkaline Phosphatase 97 U/L (39-117); Anion Gap 14 (12-20); Aspartate Amino Transferase 24 U/L (5-37); Blood Urea Nitrogen 23 mg/dL (9-16); Calcium 8.9 mg/dL (8.4-10.2); Carbon Dioxide 25 mmol/L (22-29); Chloride 102 mmol/L (96-108); Creatinine Clr Calc Pharmacy 131.8; Estimated Glomerular Filt Rate > 60; Potassium 4.9 mmol/L (3.3-5.1); Sodium 136 mmol/L (135-145); Total Protein 7.2 g/dL (6.5-8.0)
--- OUTSIDE RECORDS SUMMARY | 2025-01-23 19:00 | XMS_ITS | Patient Health Record ---
Author Organization [facility] Address [address] [facility] [address] [facility] [place] [place] [address] Care Team Providers Care Manufacturing Lead Name Role Phone Katie Gaytan Primary Care Provider NAT Bai Unavailable [phone] Allergies Allergen (clinical drug ingredient) Drug/Non Drug [...] Polyneuropathy due to type 2 diabetes mellitus (265694787) Type 2 diabetes mellitus with diabetic polyneuropathy (E11.42) Active confirmed Problem Long-term current use of insulin (205045770) long term acute care registered nurse (current) use of insulin (Z79.4) Active confirmed Problem Peripheral vascular disease (945527729) PVD (peripheral vascular disease) (I73.9) Active confirmed Problem Peripheral venous insufficiency (03273943) Venous stasis dermatitis of both lower extremities (I87.2) Active confirmed Problem Ulcer of right lower extremity, limited to breakdown of skin (L97.911) Active confirmed Problem Ankle ulcer (027833201) Skin ulcer of right ankle with fat layer exposed (L97.312) Active confirmed Vital Signs Heart Rate 87 /min 10/27/2024 Temperature 96.6 degrees Fahrenheit 10/27/2024 Respiratory Rate 20 /min 10/27/2024 Height 6ft 4in in 10/27/2024 Weight 258.2 lbs 10/27/2024 BMI 31.43 kg/m2 10/27/2024 Encounters Encounter Location Date Provider Diagnosis [facility] [address] [address] 01/30/2024 NATMARVIN BROWN Type 2 diabetes mellitus with diabetic polyneuropathy E11.42 ; Dystrophic nail L60.3 ; Pain in left toe(s) M79.675 ; Pain in right toe(s) M79.674 ; Venous stasis dermatitis of both lower extremities I87.2 and Localized swelling of both lower legs R22.43 [facility] [address] [address] 04/05/2024 NATMARVIN BROWN Type 2 diabetes mellitus with diabetic polyneuropathy E11.42 ; Dystrophic nail L60.3 ; Pain in left toe(s) M79.675 ; Pain in right toe(s) M79.674 ; Venous stasis dermatitis of both lower extremities I87.2 and Localized swelling of both lower legs R22.43 [facility] [address] 06/18/2024 NAT BROWN Type 2 diabetes mellitus with diabetic polyneuropathy E11.42 ; Dystrophic nail L60.3 ; Pain in left toe(s) M79.675 ; Pain in right toe(s) M79.674 ; Venous stasis dermatitis of both lower extremities I87.2 and Localized swelling of both lower legs R22.43 [facility] [address] 08/20/2024 NAT BROWN Type 2 diabetes mellitus with diabetic polyneuropathy E11.42 ; Tinea pedis, right B35.3 ; Dystrophic nail L60.3 ; Pain in left toe(s) M79.675 ; Pain in right toe(s) M79.674 ; Venous stasis dermatitis of both lower extremities I87.2 and Localized swelling of both lower legs R22.43 [facility] [address] 10/27/2024 NAT BROWN Ulcer of right lower extremity, limited to breakdown of skin L97.911 ; Cellulitis of right leg L03.115 ; Type 2 diabetes mellitus with diabetic polyneuropathy E11.42 ; Dystrophic nail L60.3 ; Pain in right toe(s) M79.674 and Pain in left toe(s) M79.675 [facility] [address] 06/18/2024 NAT BROWN [facility] [address] 06/18/2024 NAT BROWN [facility] [address] 08/23/2024 NAT BROWN Assessments Encounter Date [...] PO BID x 10 days sent to [facility] pharmacy per the patient's request. Pt to [...] Aseptic debridement of toenails x 10 with electric cutter operator and curette, pt tolerated well. Discussed with [...] Aseptic debridement of toenails x 10 with electric cutter operator and curette, pt tolerated well. Discussed with [...] Aseptic debridement of toenails x 10 with electric cutter operator and curette, pt tolerated well. Discussed with [...] Aseptic debridement of toenails x 10 with electric cutter operator and curette, pt tolerated well. Discussed with [...] Aseptic debridement of toenails x 10 with electric cutter operator and curette, pt tolerated well. Discussed with [...] disease. I will request the records from [facility] for his most recent studies. He [...] Date Coverage End Date [employer] Medicare [id number] [address] [address] [place] [address] [id number] Molly dueñas Randy Self - patient is [...] Date(Month/Year) inguinal hernia repair cardiac stent - [facility] 11/2022 Hospitalization History Reason Date(Month/Year) Afib 02/2023 Afib, water retention 01/2023
--- OUTSIDE RECORDS SUMMARY | 2025-01-23 19:00 | XMS_ITS | Clinical Summary ---
Author Organization [address] [place] [address] [place] [address] Phone Care Team Providers Care Banbury Mill Operator Name Role Phone Katie Gaytan MD Primary Care Provider [phone] Allergies Active Allergy Reactions Criticality Noted Date [...] 90 tablet 2 025 Active blood-glucose meter,continuous (BiOWiSHyle Pat 3 [place]) miscIndications: DM (diabetes mellitus), type 2 with neurological complications (CMS/HCC V24, CMS/HCC V28) CGM, use with pat sensor 1 each 025 Active metFORMIN XR (GLUCOPHAGE-XR) 500 mg [...] calf with varicose veins, unspecified ulcer stage ([facility] V24, [facility] V28),Venous stasis ulcer of right calf limited to breakdown of skin with varicose veins ([facility] V24, [facility] V28),Personal history of DVT (deep [...] current use of insulin, unspecified CKD stage ([facility] V24, [facility] V28) Change sensor every 15 [...] (diabetes mellitus), type 2 with neurological complications ([facility] V24, [facility] V28) Use to check bs daily 1 each 025 Active blood sugar diagnostic (Contour Next Test Strips) test stripIndications :DM (diabetes mellitus), type 2 with neurological complications ([facility] V24, [facility] V28) Use to check bs 3 times a day 100 each 12 025 2025 Active lancets (Microlet Lancet) lancetsIndicatio ns:DM (diabetes mellitus), type 2 with neurological complications ([facility] V24, [facility] V28) Use to check bs 3 times daily 100 each 12 025 2025 Active furosemide (LASIX) 20 mg tablet TAKE ONE TABLET BY MOUTH ONCE DAILY 90 tablet 025 Active atorvastatin (LIPITOR) 40 mg tablet TAKE ONE TABLET BY MOUTH ONCE DAILY 90 tablet 1 025 Active atorvastatin (LIPITOR) 40 mg tablet TAKE ONE TABLET BY MOUTH ONCE DAILY 90 tablet 1 025 2024 Discontinued furosemide (LASIX) 20 mg tablet TAKE ONE TABLET BY MOUTH ONCE DAILY 90 tablet 1 025 2024 Discontinued Active Problems Problem Noted Date Diagnosed Date Personal history of DVT (deep vein thrombosis) 1 04/27/2023 Hypotension 05/16/2023 Sepsis ([facility] V24, [facility] V28) 05/16/2023 Urinary tract infection with hematuria Overview (02/02/2024): Urosepsis, please see note 04/30/23, obstructive uropathy likely from BPH, requiring prolonged Julio cath/bag. Following with urology Dr. 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 Embolism and thrombosis of a rteries of lower extremity ([facility] V24, [facility] V28) 03/18/2017 Umbilical hernia without obstruction and without gangrene 03/02/2015 Assessment & Plan (03/24/2024 1:07 PM EST): Other specified anemias 02/15/2015 DM ketoacidosis type II, unc ontrolled ([facility] V24, [facility] V28) 09/21/2014 Microalbuminuria 09/21/2014 Nuclear [...] due t o type 2 diabetes mellitus ([facility] V24, [facility] V28) 05/29/2005 Overview (02/02/2024): Last [...] continue to follow with your specilaist at [facility], and get me the record. 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, followed by hematology IMO update Esophageal reflux 05/29/2005 Overview (02/02/2024): The patient underwent upper GI endoscopy 08.30.05 at [facility] for the evaluation of reflux and everything [...] Plan (03/24/2024 1:07 PM EST): Morbid obesity ([facility] V24, [facility] V28) 2005 Pure hypercholesterolemia 05/29/2005 [...] Encounters Date Type Department Care Team Description 01/21/2025 Telephone [facility] Cardiology [facility] [address] [place] [address] Sarah Lee NP 12/27/2024 Telephone Adult Medicine [place] - [address] [phone] Katie Gaytan MD 12/22/2024 Telephone [facility] Cardiology [facility] [address] [place] [address] Sarah Lee NP 12/13/2024 Anticoagulation - Warfarin Visit Coumadin [facility] - [address] [address] Latasha Deleon LPN Personal history of DVT (deep vein thrombosis) (Primary Dx) 12/09/2024 10:00 AM EDT Ancillary Procedure [facility] Cardiology [facility] [address] [place] [address] PAD (peripheral artery disease) ([facility] V24); Ectasia of artery ([facility] V24) 12/07/2024 Telephone Vascular Surgery - [place] [address] [place] [address] Jose Kauffman MD 12/06/2024 Anticoagulation - Warfarin Visit Coumadin [address] [phone] Latasha Deleon LPN Personal history of DVT (deep vein thrombosis) (Primary Dx) 11/30/2024 Telephone Adult Medicine [address] [phone] Carmelita Henson RN 11/30/2024 Telephone [facility] - [facility] [address] [facility] [address] [place] [address] Yovany Giles MD 11/30/2024 Telephone Adult [address] [phone] Katie Gaytan MD 11/29/2024 Anticoagulation - Warfarin Visit Coumadin [address] [phone] Shonna White LPN Personal history of DVT (deep vein thrombosis) (Primary Dx) 11/22/2024 Anticoagulation - Warfarin Visit Coumadin [address] [phone] Shonna White LPN Personal history of DVT (deep vein thrombosis) (Primary Dx) 11/16/2024 Telephone Endocrinology [address] [phone] Julia Oconnell PA 11/15/2024 Anticoagulation - Warfarin Visit [facility] [address] [phone] Shonna White LPN Personal history of DVT (deep vein thrombosis) (Primary Dx) 11/08/2024 Anticoagulation - Warfarin Visit [facility] Clinic [address] [phone] Latasha Deleon LPN Personal history of DVT (deep vein thrombosis) (Primary Dx) 11/01/2024 9:00 AM EDT Ancillary Procedure [facility] [address] [place] [address] Longstanding persistent atrial fibrillation ([facility]/HCC V24, CMS/HCC V28) 11/01/2024 Anticoagulation - Warfarin Visit Coumadin [address] [phone] Shonna White LPN Personal history of DVT (deep vein thrombosis) (Primary Dx) 10/29/2024 8:30 AM EDT Office Visit Adult Medicine [address] [phone] Katie Gaytan MD Cellulitis and abscess of leg (Primary Dx) 10/26/2024 Anticoagulation - Warfarin Visit Coumadin [address] [phone] Shonna White LPN Personal history of DVT (deep vein thrombosis) (Primary Dx) from Last 3 Months Immunizations Immunization Administration Dates Next Due H1N1 Inj Preservative Free 03/09/2009 Influenza trivalent, 0.5mL ( Fluad) 65yo and older 12/25/2021,01/02/2021,01/19/2019 Influenza trivalent, 0.5mL, preservative free (Fluarix; FluLaval; Fluzone) ages 6mo and older (Afluria) 3 years and older 01/16/2011,02/20/2010,01/14/2008,01/19,03/14/2006,01/31/2005 Influenza, Unspecified 01/02/2021,2017,02/05/2017,02/02,02/02/2015,01/24/2014,02/04/2012 Pfizer Covid-19 Bivalent, Or iginal + Ba.1 (Non-US Trademark COMIRNATY Bivalent) 12/25/2021 TapResearch SARS-CoV-2 COVID-19, mRNA, LNP-S, preservative free 01/20/2021 [...] (diabetes mellitus), type 2 with neurological complications ([facility] V24, [facility] V28) 09/01/2017 DX:DM (diabetes mellitus), t ype 2 with neurological complications ([facility]) Family History Medical History Relation [...] care for your loved ones. For example, childcare director or elderly care for an older [...] Care Team (Late st Contact Info) Description 03/30/2025 9:20 AM EST Office Visit Endocrinology - [place] [address] [place] [address] Julia Oconnell PA [address] [place] [address] Health Maintenance Due Date Last Done Comments Depression Screening 04/21/2024 03/22/2024 Diabetes: Annual Foot Exam 11/27/2024 11/28/2023 COVID-19 Vaccine (7 - Pfizer risk 2023- [...] 11:32 AM EDT PAD (peripheral artery disease) ([facility] V24) Ectasia of artery ([facility] V24) PROTHROMBIN TIME WITH INR [...] PSV 64 cm/s CV VAS LAB Left MEDICAL RESEARCH ASSOCIATE prox sys PSV 70 cm/s CV VAS [...] PSV 51 cm/s CV VAS LAB Right MEDICAL RESEARCH ASSOCIATE prox sys PSV 77 cm/s CV VAS [...] The mid peroneal artery has triphasic flow. Financial Advisor Details A reid scale, color and doppler analysis ultrasound was performed. During the study longitudinal views were obtained. Pulsed wave doppler was performed. Talia ZIMMERMAN CV VASCULAR PROCEDURES Final Result * (ABNORMAL) B-type natriuretic peptide (12/02/2024 9:29 AM EDT) [facility] BNP 266(H) <=100 pcg/mL LAB CHEMISTRY METHOD 12/02/2024 11:50 AM EDT [facility] Blood Venous blood specimen / Unknown Venipuncture / Unknown 12/02/2024 9:29 AM EDT 12/02/2024 9:29 AM EDT Sarah Lee NP LAB BLOOD ORDERABLES Final Resu lt [facility] [address] [place] [address], [place] [phone] * (ABNORMAL) Basic metabolic panel (12/02/2024 9:29 AM EDT) [facility] Sodium 139 133 - 145 mmol/L LAB [...] LAB CHEMISTRY METHOD 12/02/2024 12:42 PM EDT [facility] BUN 17 5 - 25 mg/dL LAB CHEMISTRY METHOD 12/02/2024 12:42 PM EDT [facility] Creatinine 0.98 0.70 - 1.30 mg/dL LAB CHEMISTRY METHOD 12/02/2024 12:42 PM EDT [facility] eGFR 82 >=60 mL/min/1. 73m2 LAB CHEMISTRY METHOD 12/02/2024 12:42 PM EDT [facility] Comment:Calculation based on the Chronic Kidney Disease Epidemiology Collaboration (CKD-EPI) equation refit without adjustment for race. BUN/Creatinine Ratio 17.3 LAB CHEMISTRY METHOD 12/02/2024 12:42 PM EDT [facility] Calcium 8.6 8.5 - 10.5 mg/dL LAB CHEMISTRY METHOD 12/02/2024 12:42 PM EDT [facility] Blood Venous blood specimen / Unknown Venipuncture / Unknown 12/02/2024 9:29 AM EDT 12/02/2024 9:29 AM EDT Saarh Lee SUPERVISOR WINTER LAB BLOOD ORDERABLES Final Resu lt [facility] [address] [place] [address], * (ABNORMAL) Hemoglobin A1c (12/02/2024 7:55 AM EDT) Hemoglobin A1C 6.8(H) <6.5 % LAB CHEMISTRY METHOD 12/02/2024 11:37 AM EDT [facility] Mean Bld Glu Estim. 148 mg/dL LAB CHEMISTRY METHOD 12/02/2024 11:37 AM EDT [facility] Blood Venous blood specimen / Unknown Venipuncture / Unknown 12/02/2024 7:55 AM EDT 12/02/2024 7:55 AM EDT Julia ZIMMERMAN LAB BLOOD ORDERABLES Final Resul t Performing Organization Address [facility]/ZIP Co de Phone Number [facility] [address] [place] [address], * (ABNORMAL) Digoxin level (12/02/2024 7:55 AM EDT) Digoxin Lvl 0.3(L) 0.5 - 2.0 ng/mL LAB CHEMISTRY METHOD 12/02/2024 11:16 AM EDT [facility] Blood Venous blood specimen / Unknown Venipuncture / Unknown 12/02/2024 7:55 AM EDT 12/02/2024 7:55 AM EDT Radha Hudson NP LAB BLOOD ORDERABLES Final Resu lt Performing Organization Address [facility] Co de Phone Number [facility] [address] [place] [address], * CARDIAC HOLTER MONITOR (REPORT GENERATED IN HOUSE) (11/01/2024 9:05 AM EDT) Anatomical Region Laterality Modality Cardiac Diagnost ic Narrative 11/03/2024 7:47 AM EDT [facility] DIAGNOSTIC [facility]ING DEPARTMENT [address] [place] [address] TEL: FAX: Type of Test: 24 Hour Holter Monitor Date of Test: 11/01/2024 Ordering Provider: Radha Hudson NP Reason for Test: Longstanding persistent atrial fibrillation PVCA Mailer Findings: 1: Atrial Fibrillation noted throughout recording. [...] of 74 bpm. Occasional PVCs. Radha Hudson SUPERVISOR WINTER CV CARDIAC SERVICES PROCEDURES Final Result * (ABNORMAL) Lipid panel with reflex to direct LDL (08/25/2024 1:50 PM EDT) Cholesterol 99 0 - 200 mg/dL LAB CHEMISTRY METHOD 08/25/2024 6:50 PM EDT [facility] Triglycerides 134 0 - 150 mg/dL LAB CHEMISTRY METHOD 08/25/2024 6:50 PM EDT [facility] HDL 39(L) >=40 mg/dL LAB CHEMISTRY METHOD 08/25/2024 6:50 PM EDT [facility] LDL Calculated 33 0 - 100 mg/dL LAB CHEMISTRY METHOD 08/25/2024 6:50 PM EDT [facility] VLDL Cholesterol Aramis 26.8 mg/dL LAB CHEMISTRY METHOD 08/25/2024 6:50 PM EDT [facility] Non HDL Chol. (LDL+VLDL) 60 <145 mg/dL LAB CHEMISTRY METHOD 08/25/2024 6:50 PM EDT [facility] Chol/HDL Ratio 2.5 0.0 - 4.4 LAB CHEMISTRY METHOD 08/25/2024 6:50 PM EDT [facility] Blood Venous blood specimen / Unknown Venipuncture / Unknown 08/25/2024 1:50 PM EDT 08/25/2024 1:50 PM EDT Jose Armando [place] SUPERVISOR WINTER LAB BLOOD ORDERABLES Final R esult [facility] [address] [place] [address], * (ABNORMAL) Microalbumin creatinine urine ratio (08/25/2024 1:50 PM EDT) Creatinine, Urine 103.0 mg/dL LAB CHEMISTRY METHOD 08/25/2024 6:51 PM EDT [facility] Microalb, Ur 121.0(H) 0.0 - 29.0 mg/L LAB CHEMISTRY METHOD 08/25/2024 6:51 PM EDT [facility] Microalb/Crea t Ratio 117(H) <30 mg/g creat LAB CHEMISTRY METHOD 08/25/2024 6:51 PM EDT [facility] Urine Urine specimen obtained by clean catch procedure / Unknown Non-blood Collection / Unknown 08/25/2024 1:50 PM EDT 08/25/2024 1:50 PM EDT Jose Armando [place] SUPERVISOR WINTER LAB URINE ORDERABLES Final R esult [facility] [address] [place] [address], * Diabetes Foot Exam (11/28/2023) [facility] Diabetes: Annual Foot Exam Abstracted Historical Provider HEALTH MAINTENANCE Final Result * Colonoscopy (06/10/2018) [facility] Colonoscopy No interpreta tion,abstr acted Anatomical Region Laterality Modality Other Historical Provider HEALTH MAINTENANCE Final Result * Hepatitis C Screening (03/13/2013) [facility] Hepatitis C Screening Abstracted Historical Provider HEALTH MAINTENANCE Final Result from Last 3 Months or Most Recently Relevant to Health Maintenance Insurance [employer] MEDICARE Care Teams [employer] Mill Operator Relationship Specialty Start Date End Date Katie Gaytan MD [address] [place] [address] PCP - General 02/18/1999
--- OUTSIDE RECORDS SUMMARY | 2025-01-23 19:00 | XMS_ITS | Encounter Summary ---
Author Organization [facility] Address [address] [place] [address] Care Team Providers Care Assistant Store Manager Operations Name Role Phone Katie Gaytan MD Primary Care Provider [phone] Encounter Details Date Type Department Care Team (Latest Contact Info) Description 03/02/2024 Anticoagulation - Warfarin Visit Coumadin Clinic - [address] [phone] Shonna White LPN Personal history of DVT [...] 9:20 AM EST Office Visit Endocrinology - [address] [phone] Julia Oconnell PA [address] [place] [address] documented as of this encounter Visit Diagnoses Diagnosis Personal history of DVT (deep vein thrombosis)- Primary Personal history of venous thrombosis and embolism documented in this encounter Care Teams Assistant Store Manager Operations Relationship Specialty Start Date End Date Katie Gaytan MD [address] [place] [address] PCP - General 02/18/1999 documented as of this encounter
--- OUTSIDE RECORDS SUMMARY | 2025-01-23 19:00 | XMS_ITS | Encounter Summary ---
Author Organization [facility] Address [address] [place] [address] Care Team Providers Care Buffing Wheel Former Automatic Name Role Phone Katie Gaytan MD Primary Care Provider [phone] Reason for Visit * Reason Onset Date Comments No Show 01/21/2025 10.3.25 Encounter Details Date Type Department Care Team ([facility] st Contact Info) Description 01/21/2025 Telephone [facility] - [facility] [address] [facility] [address] [place] [address] Sarah Lee NP [address] [place] [address] [place] [address] Social History Tobacco Use Types Packs/Day Years [...] for your loved ones. For example, child advocate or elderly care for an older adult? [...] as of this encounter Progress Notes * Rose Alejandro MA - 01/21/2025 3:06 PM EDT Letter sent with information on no showed appointment and no show policy documented in this encounter Plan of Treatment Upcoming Encounters Date Type Department Care Team (Late st Contact Info) Description 03/30/2025 9:20 AM EST Office Visit Endocrinology - [facility] [address] [place] [address] Julia Oconnell PA [address] [place] [address] documented as of this encounter Visit Diagnoses Not on filedocumented in this encounter Additional Health Concerns Assessment Noted Time PHQ-9 Depression Total Score: 0 03/22/20 10:44 AM EST A fall risk assessment has been complete d for the patient 03/20/2024 12:04 PM EST documented as of this encounter Care Teams Buffing Wheel Former Automatic Relationship Specialty Start Date End Date Katie Gaytan MD [address] [place] [address] PCP - General 02/18/1999 documented as of this encounter
--- OUTSIDE RECORDS SUMMARY | 2025-01-23 19:00 | XMS_ITS | Encounter Summary ---
Author Organization [facility] Address [address] [place] [address] Care Team Providers Care Fuel Truck Driver Name Role Phone Katie Gaytan MD Primary Care Provider Encounter Details Date Type Department Care Team ([facility] st Contact Info) Description 12/27/2024 Telephone Adult Medicine [facility] [address] [place] [phone] Katie Gaytan MD [address] [place] [address] Social History Tobacco Use Types Packs/Day Years [...] your loved ones. For example, child adolescent psychiatrist or elderly care for an older adult? [...] been hospitalized for a couple week at [facility] reason why Patient missed his appointment on 12/24/24. Patient's Partner looking for call back ( She is Emergency Contact but we have No updated Verbal Release on file orHealthcare Proxy) documented in this encounter Plan of Treatment Upcoming Encounters Date Type Department Care Team (Late st Contact Info) Description 03/30/2025 9:20 AM EST Office Visit Endocrinology [facility] [address] [place] [address] Julia Oconnell PA [address] [place] [address] documented as of this encounter Visit Diagnoses Not on filedocumented in this encounter Additional Health Concerns Assessment Noted Time PHQ-9 Depression Total Score: 0 03/22/20 10:44 AM EST A fall risk assessment has been complete d for the patient 03/20/2024 12:04 PM EST documented as of this encounter Care Teams Fuel Truck Driver Relationship Specialty Start Date End Date Katie Gaytan MD [address] [place] [address] PCP - General 02/18/1999 documented as of this encounter
--- OUTSIDE RECORDS SUMMARY | 2025-01-23 19:00 | XMS_ITS | Clinical Summary ---
Author Organization [facility] Address [address] [facility] [address] [place] [address] Phone Care Team Providers Care General Accountant Name Role Phone Katie Gaytan MD Primary Care Provider [phone] Social History Tobacco Use Types Packs/Day Years [...] 03/04/2013 INFLUENZA VACCINE (#1) 2024 COVID-19 VACCINE ( - 2024-2 6 season) 2024 RSV VACCINE (1 - 1-dose [...] topic Medical Devices Not on file Insurance [facility] MEDICARE REPLACEMENT MEDICARE PART A & B [facility] MEDICARE REPLACEMENT [place] [id number] MEDICARE PART A & B Member Subscriber Plan / Payer (Ef fective 2017-Present) Name:Randy Tan Member ID:[id number] Relation to Subscriber:Self Name:Randy Tan Subscriber ID:[id number] Payer ID:[id number] Group ID:Not on file Type:Medicare Address: [email or web address] [address] MEDICARE REPLACEMENT MEDICARE PART A & B MEDICARE REPLACEMENT MEDICARE PART A & B MEDICARE REPLACEMENT MEDICARE PART A & B [facility] MEDICARE REPLACEMENT MEDICARE PART A & B Care Teams General Accountant Relationship Specialty Start Date End Date Katie Gaytan MD [address] [place] [address] PCP - General Internal Medicine 04/17/23 Additional Source Comments The information contained in this document represents components of the legal health record. It is not the complete legal health record.[facility]
--- OUTSIDE RECORDS SUMMARY | 2025-01-23 19:00 | XMS_ITS ---
Author Organization [facility] Care Team Providers Care Machine Filler Servicer Name Role Phone Nida Farris Unavailable Unavailable Chris Troy Unavailable Unavailable Jared Kahn Unavailable Unavailable Allergies and adverse reactions Code CodeSystem Substance Reaction Severity StartDate Concern Status Wool Unknown 01/05/[id number] Peanuts Unknown 01/05/2025 active Care Team Name Role Address Phone Organization Dates Jared Kahn PCP [address] [place] [address], [facility] (Office): : [facility] 01/05/2025 - present Nida Farris [address] [address], [facility] (Office): : [facility] 01/05/2025 - present Chris Troy [address] [address], [facility] (Office): : [facility] 01/05/2025 - present Imaging Narrative Note Date Imaging Narrative No te 01/21/2025 XRAY CHEST 2 VIEWFIN DINGS: There is advanced cardiomegaly. There is a small left effusion. The right lung is clear.CONCLUSION: Cardiomegaly with a small left effusion.ELECTRONICALLY SIGNED BY JOSIANE RIVAS M.D. 01/21/2025 2:08:14 PM EDT.Reason for Study: R05.1 ACUTE COUGHPrincipal Result Commercial Glazier: JOSIANE RIVAS ([id number])Dairy Equipment Installer: WENDY CHRIS (DCONDON)Sole Painter Dairy Equipment Installer: BONNIE Maria EncounterType Code CodeSystem Description Performer ServiceDe liveryLocation Date Ambulatory Encounter CPT Code = [address] Acute hypercapnic respiratory failure [facility] Address: [address] [place] [address]. 01/05 Ambulatory Encounter CPT Code = [address] Interstitial lung disease [facility] Address: [address] [place] [address]. 01/05 Ambulatory Encounter CPT Code = [address] Paroxysmal atrial fibrillation [facility] Address: [address] [place] [address]. 01/05 Ambulatory Encounter CPT Code = [address] Congestive heart failure [facility] Address: [address] [place] [address]. 01/05 Ambulatory Encounter CPT Code = [address] Low blood pressure [facility] Address: [address] [place] [address]. 01/05 Ambulatory Encounter CPT Code = [address] Peripheral venous insufficiency [facility] Address: [address] [place] [address]. 01/05 Ambulatory Encounter CPT Code = [address] Disorder of vein [facility] Address: [address] [place] [address]. 01/05 Ambulatory Encounter CPT Code = [address] Undernutrition [facility] Address: [address] [place] [address]. 01/05 Ambulatory Encounter CPT Code = [address] Type 2 diabetes mellitus without complication [facility] Address: [address] [place] [address]. 01/05 Ambulatory Encounter CPT Code = [address] Benign prostatic hyperplasia [facility] Address: [address] [place] [address]. 01/05 Ambulatory Encounter CPT Code = [address] Muscle atrophy [facility] Address: [address] [place] [address]. 01/05 Ambulatory Encounter CPT Code = [address] Gastroesophage al reflux disease without esophagitis [facility] Address: [address] [place] [address]. 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 01/05 Ambulatory Encounter CPT Code = [address] Acute hypoxemic respiratory failure [facility] Address: [address] [place] [address]. 01/05 Ambulatory Encounter CPT Code = 48696 J98.4 ICD 10 OTHER DISORDERS OF LUNG [facility] Address: [address] [place] [address]. 01/05 Ambulatory Encounter CPT Code = 77827 I50.20 ICD 10 UNSPECIFIED SYSTOLIC (CONGESTIVE) HEART FAILURE [facility] Address: [address] [place] [address], [place], [address], [facility]. 01/05 Goals Section Goals Description Status Target Date I plan to discharge to: Spec prabhu- To community alone, To Community with Family, NURSING HOME/[facility], LTC Placement, Other- Undecided at current time. Pending outcome of therapy sessions, clinical medical stability progress reviewed weekly. Active 01/25/2025 I will be at reduced risk fo r complications of self care performance deficit and impaired mobility daily through the review date. Active 01/25/2025 I will be at reduced risk fo r new or worsened impaired skin integrity daily through the review date. Active 01/25/2025 I will be free from discomfo rt or adverse side effects of anticoagulant therapy through the review date. Active I will be free from discomfo rt or adverse side effects of diuretic therapy through the review date. Active 01/25/2025 I will be free from infection through the next r eview date. Active 01/25/2025 I will be free from s/sx of complications of cardiac problems through the review date. Active 01/25/2025 I will be free from s/sx of dehydration through next review date. Active 01/25/2025 I will be free of fall relat ed injury through the next review date. Active 01/25/2025 I will continue to be indepe ndent and pursue activities of interest through next review. Active 01/25/2025 I will have no complications of altered respiratory status through the review date. Active 01/25/2025 I will have no complications related to diabetes through the review date. Active 01/25/2025 I will maintain adequate nut ritional status as evidenced by maintaining weight within +/-5% of CBW, no s/sx of malnutrition, and consuming at least 76% of at least 2 meals daily through review date. Active 01/25/2025 I will maintain or improve m y independence and mobility through review date. Active 01/25/2025 I will not have skin breakdo wn due to incontinence through the review date. Active 01/25/2025 I will not have skin breakdo wn due to incontinence through the review date. Active 01/25/2025 I will remain free from disc omfort and complications related to gastro-esophageal reflux through the review date. Active 10/2024 I will remain free of sympto ms and complications of low oxygen levels, such as shortness of breath, dizziness, tachycardia, headache through review date. Active 01/25/2025 I will show management of my symptoms [ie: edema, abnormal breath sounds, hypertenion] through the review date. Active 01/26/20 I will utilize effective cops ing mechanisms as evidenced by no s/sx of psychosocial imbalance through the review date. Active 10/2024 I will verbalize adequate re lief of pain or ability to cope with incompletely relieved pain through the review date. Active My risk for respiratory comp lications and infections will be mitigated through the review date. Active 01/25/2025 My risk for respiratory comp lications related to my shortness of breath will be mitigated through the review date. Active 10/2024 My skin integrity will be im proved or maintained by next review date. Active 01/25/2025 The resident will have intac t skin, free of redness, blisters, or discoloration through review date. Active 01/25/2025 The resident's advance direc tives are in effect and their wishes will be carried out through the next review. Active Functional Status Code Name Recorded Time Value Entered By Eating 01/22/2025 Setup or clean-up assistance jocab Lying to sitting on side of bed 01/23/2025 Partial/m oderate assistance richcruz Oral hygiene 01/23/2025 Partial/moderate assistance richcruz Personal hygiene 01/23/2025 Partial/moderate assista nce richcruz Shower/bathe self 01/21/2025 Not assessed [facility]ola Sit to lying 01/23/2025 Partial/moderate assistance richcruz Toilet transfer 01/23/2025 Partial/moderate assistan ce richcruz Toileting hygiene 01/23/2025 Partial/moderate assist ance richcruz Immunizations Immunization Status Vaccine Details Vaccine Code CodeSystem Date Notes Diphtheria completed tetanus toxoid, reduced diphtheria toxoid, and acellular pertussis vaccine, adsorbed lotNumber: [id number] Mfg: Glaxosmithkline Given 0.5 intramuscularly 115 CVX created date: 01/11/2025 administer ed date: 08/25/2024 doseUOMN oncoded: mL (Shingles) Vaccine completed zoster vaccine recombinant Mfg: Glaxosmithkline Given intramuscularly 187 CVX created date: 01/11/2025 administer ed date: 03/08/2019 PCV13 (Pneumococcal Conjugate)Vaccin e completed pneumococcal conjugate vaccine, 13 valent lotNumber: [id number] Mfg: WYETH-AYERST Given 0.5 intramuscularly 133 CVX created date: 01/11/2025 administer ed date: 03/10/2018 doseUOMN oncoded: mL PPSV23 (Previous Pneumococcal Polysaccharide)V accine completed pneumococcal polysaccharide vaccine, 23 valent lotNumber: [id number] Mfg: [employer] Given 0.5 intramuscularly 33 CVX created date: 01/11/2025 administer ed date: 06/07/2019 doseUOMN oncoded: mL (Respiratory Syncytial Virus) Arexvy Adjuvant Vaccine completed Respiratory syncytial virus (RSV), vaccine, recombinant, protein subunit RSV prefusion F, adjuvant reconstituted, 0.5 mL, preservative free 303 CVX created date: 01/11/2025 administer ed date: 03/10/2024 (Tetanus, Diphtheria, and Acellular Pertussis) Tdap completed tetanus toxoid, reduced diphtheria toxoid, and acellular pertussis vaccine, adsorbed 115 CVX created date: 01/11/2025 administer ed date: 08/25/2024 (COVID-19) [id number] Updated Moderna Vaccine completed SARS-COV-2 (COVID-19) vaccine, mRNA, spike protein, LNP, preservative free, 50 mcg/0.5 mL dose 312 CVX created date: 01/11/2025 administer ed date: 01/27/2024 Medications Section Medication Name Status Code CodeSystem Dose Route Frequency Admin Type Sig Text Start Date End Date Indication Metoprolol Tartrate Oral Tablet 50 MG active 06064 4 RXNORM 1 table t Oral every 12 hours Routin e Give 1 table t by mouth every 12 hours for BETA BLOCK ERS hold for sbp <90 or heart rate <60 2024 - BETA BLOCKERS Insulin Lispro Injection Solution 100 UNIT/ML active 61225 0 RXNORM n/a n/a Subcut aneous with meals Routin e Injec t as per slidi ng scale : if 0 - 199 = 0 units ; 200 - 250 = 2 units ; 251 - 300 = 4 units ; 301 - 350 = 6 units ; 351 - 400 = 8 units for blood sugar of 400 and great er, notif y medic al, subcu taneo usly with meals for ANTID IABET ICS 2024 - ANTIDIABETI CS Aspirin Oral Tablet active 81 mg Oral one time a day Routin e Give 81 mg by mouth one time a day for ANALG ESICS - [place] rcoti c, HEMAT OLOGI PREM AGENT S - MISC. 2024 - ANALGESICS - NonNarcotic , HEMATOLOGIC AL AGENTS - MISC. Atorvastati n Calcium Oral Tablet 40 MG active 98501 1 RXNORM 1 table t Oral at bedtime Routin e Give 1 table t by mouth at bedti me for ANTIH YPERL IPIDE MICS 2024 - ANTIHYPERLI PIDEMICS Folic Acid Oral Tablet 1 MG active 76079 0 RXNORM 1 table t Oral one time a day Routin e Give 1 table t by mouth one time a day for HEMAT OPOIE TIC AGENT S 2024 - HEMATOPOIET IC AGENTS Eliquis Oral Tablet 5 MG active 52133 47 RXNORM 1 table t Oral every 12 hours Routin e Give 1 table t by mouth every 12 hours for ANTIC OAGUL ANTS 2024 - ANTICOAGULA NTS Furosemide Oral Tablet 20 MG active 37052 9 RXNORM 1 table t Oral one time a day Routin e Give 1 table t by mouth one time a day for DIURE TICS 2024 - DIURETICS metFORMIN HCl Oral Tablet 500 MG active 24192 7 RXNORM 1 table t Oral every 12 hours Routin e Give 1 table t by mouth every 12 hours for ANTID IABET ICS 2024 - ANTIDIABETI CS Ammonium Lactate External Cream 12 % aborted 09358 0 RXNORM n/a n/a Topica l as needed PRN Apply to [facility] [place] topic ally every 24 hours as neede d for DERMA TOLOG ICALS 01/06 DERMATOLOGI CALS dilTIAZem HCl Oral Tablet 120 MG active 32662 4 RXNORM 1 table t Oral one time a day Routin e Give 1 table t by mouth one time a day for CALCI UM CHANN EL BLOCK ERS, CHEMI CALS 2024 - CALCIUM CHANNEL BLOCKERS, CHEMICALS Silver sulfADIAZIN E External Cream 1 % active 26904 1 RXNORM n/a n/a Topica l as needed PRN Apply to affec [place] topic ally every 24 hours as neede d for DERMA TOLOG ICALS 2024 - DERMATOLOGI CALS Tamsulosin HCl Oral Capsule 0.4 MG active 04966 9 RXNORM 1 capsu le Oral at bedtime Routin e Give 1 capsu le by mouth at bedti me for GENIT OURIN LLOYD AGENT S - MISCE LLANE OUS 2024 - GENITOURINA RY AGENTS - MISCELLANEO US Bisacodyl Rectal Suppository 10 MG active 9 RXNORM 1 suppo sitor y Rectal as needed PRN Inser t 1 suppo sitor y recta lly every 24 hours as neede d for Const ipati on Give 1 Suppo sitor y (10mg ) via rectu m if no resul ts from Milk of Magne miguel after 24 hours . 2024 - Constipatio n Fleet Enema Rectal Enema 7-19 GM/118ML active 23118 5 RXNORM 1 appli cator Rectal as needed PRN Inser t 1 appli cator recta lly as neede d for Const ipati on Give 1 appli cator full (118 ml)if no resul ts from Bisac odyl suppo sitor y. 2024 - Constipatio n Milk of Magnesia Oral Suspension 400 MG/5ML active 86761 7 RXNORM 30 ml Oral as needed PRN Give 30 ml by mouth every 24 hours as neede d for Const ipati on Give 30ml by mouth if no bowel movem ent in 3 days (9 Shift s). 2024 - Constipatio n Ammonium Lactate External Cream 12 % active 97572 0 RXNORM n/a n/a Topica l two times a day Routin e Apply to BLE topic ally two times a day for dry scaly skin 2024 - dry scaly skin Saige-Tussin DM Oral Liquid 10-100 MG/5ML active 10 ml Oral as needed PRN Give 10 ml by mouth every 6 hours as neede d for cough 2024 - cough Acetaminoph en Oral Tablet 325 MG active 74097 2 RXNORM 2 table t Oral as needed PRN Give 2 table t by mouth every 6 hours as neede d for Pain Total Dose 650mg * *DO NOT EXCEE D 3 grams in 24 hours AND Give 2 table t by mouth every 6 hours as neede d for [place] ratur e great er than 101.F Total Dose 650mg * *DO NOT EXCEE D 3 grams in 24 hours 2024 - Pain 41415 2 RXNORM 2 table t Oral as needed PRN Give 2 table t by mouth every 6 hours as neede d for Pain Total Dose 650mg * *DO NOT EXCEE D 3 grams in 24 hours AND Give 2 table t by mouth every 6 hours as neede d for [place] ratur e great er than 101.F Total Dose 650mg * *DO NOT EXCEE D 3 grams in 24 hours 2024 - Temperature greater than 101.F Multivitami n-Minerals Oral Tablet active 1 table t Oral one time a day Routin e Give 1 table t by mouth one time a day for wound heali ng 2024 - wound healing Ascorbic Acid Tablet 250 MG aborted 3 RXNORM 1 table t Oral one time a day Routin e Give 1 table t by mouth one time a day for wound heali ng 01/13 wound healing Mental Status Section Date Assessment Total Score Description 01/11/2025 BIMS 15 cognitively int act CAM 0 No delirium ind icated PHQ-9 00 Insurance Providers Plan of Treatment Section Interventions Intervention Code Code System Display Name Proposed D ate Problems Problem # Description Date of onset Resolved Date Code CodeSystem Concern Status 1 ACUTE RESPIRATORY FAILURE WITH HYPERCAPNIA 01/06/[address] active 2 ACUTE RESPIRATORY FAILURE WITH HYPOXIA 01/06/[address] active 3 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 01/06/[address] active 4 BENIGN PROSTATIC HYPERPLASIA WITHOUT LOWER URINARY TRACT SYMPTOMS 01/06/[address] active 5 GASTRO-ESOPHAGEAL REFLUX DISEASE WITHOUT ESOPHAGITIS 01/06/[address] active 6 HYPOTENSION, UNSPECIFIED 01/06/[address] active 7 INTERSTITIAL PULMONARY DISEASE, UNSPECIFIED 01/06/[address] active 8 MUSCLE WASTING AND ATROPHY, NOT ELSEWHERE CLASSIFIED, MULTIPLE SITES 01/06/[address] active 9 PAROXYSMAL ATRIAL FIBRILLATION 01/06/[address] active 10 PERSONAL HISTORY OF OTHER VENOUS THROMBOSIS AND EMBOLISM 01/06/[address] active 11 TYPE 2 DIABETES MELLITUS WITHOUT COMPLICATIONS 01/06/[address] active 12 UNSPECIFIED DIASTOLIC (CONGESTIVE) HEART FAILURE 01/06/[address] active 13 UNSPECIFIED PROTEIN-CALORIE MALNUTRITION 01/06/[address] active 14 VENOUS INSUFFICIENCY (CHRONIC) (PERIPHERAL) 01/06/[address] active Reason for Referral No Reasons for Referral Entered Diagnostic Results Radiology Test Results Code Code System Date Test Procedure Status Notes 52852-3 LOINC 01/21/2025 XRAY CHEST 2 VIEW Completed Result for: RANDY TAN ( 1950, M) [address]74[address]-1 [facility] 01/21/2025 XRAY CHEST 2 VIEW Final XRAY CHEST 2 VIEWFINDINGS: There is advanced cardiomegaly. There is a small left effusion. The right lung is clear.CONCLUSION: Cardiomegaly with a small left effusion.ELECTRONIC ALLY SIGNED BY JOSIANE RIVAS M.D. 01/21/2025 2:08:14 PM EDT.Reason for Study: R05.1 ACUTE COUGHPrincipal Result Commercial Glazier: JOSIANE RIVAS ([id number])Technic latasha: WENDY CHRIS (DCONDON)Transcript ion Dairy Equipment Installer: BONNIE Social History Social History Observation Description Start Date End Date Code Code System Current Smoking Status Tobacco smoking consumption unknown 376401575 SNOMED CT Sex Assigned At Male 1950 589[address]-1 [facility] Gender Identity Sexual Orientation Vital Signs Code Code System Vitals Name Values and Units Timing Information 69795-4 LOINC Pain Level Value=0.0 01/23/2025 9279-1 LOINC Respiratory Rate Value=18.0 Units=/m in 01/23/2025 8310-5 LOINC Body Temperature Value=97.8 Units= F 01/23/2025 8867-4 [facility] Heart rate Value=84.0 Units=/min 08/2024 2339-0 [facility] Blood Sugar Mkjvz=407.0 Units=mg/dL 01/23/2025 19152-7 [facility] O2 % BldC Oximetry Value=94.0 Units= % 01/23/2025 8462-4 [facility] Blood Pressure-Diastolic Value=60 Un its=mmHg 01/23/2025 8480-6 [facility] Blood Pressure-Systolic Value=98 Uni ts=mmHg 01/23/2025 01681-1 [facility] Weight Gljhq=466.6 Units=Lbs 08/2024 8302-2 [facility] Height Value=76.0 Units=Inches 01/05/2025
[2025-01-23 19:09] LABS: Appearance Urine Clear; Glucose Urine UA Negative (Negative); PH 5.5 (5.0-9.0); Specific Gravity - Urine 1.015 (1.005-1.025); UMIC TRIGGER UACC YES
[2025-01-23 20:15] LABS: Glucose, Whole Blood 180 mg/dL (60-115)
--- NOTE | 2025-01-23 22:09 | ED.MALEGU ---
HPI - Male Genitourinary General Chief complaint: Urogenital-Male Stated complaint: SNF urinating blood heard a pop x1 day than bleed Time Seen by Provider: 01/23/25 20:10 Source: patient Limitations: no limitations History of Present Illness ED Provider: Whit Julio PA-C HPI Narrative: 74-year-old male with a history of AFib on Eliquis, heart failure, restrictive lung disease on supplemental oxygen, KIRILL, kidney stones, who presents with a hematuria. Patient is currently at a SNF for rehabilitation, he states he ?heard a pop?, then developed bleeding from his penis. Patient denies back pain, flank pain, abdominal pain, nausea, vomiting, dysuria or fever. Denies penile pain, scrotal pain or swelling. Related Data Home Medications ?Medication ?Instructions ?Recorded ?Confirmed atorvastatin 40 mg tablet 40 mg PO BEDTIME 09/03/22 12/14/24 folic acid 1 mg tablet 1 mg PO DAILY@1200 09/04/22 12/14/24 insulin lispro 100 unit/mL See Rx Instructions .Route .COMPLEX 09/04/22 12/14/24 subcutaneous solution (Humalog U-100 Insulin) flash glucose scanning reader #1 ea 01/06/23 03/09/24 (FreeStyle Pat [address] [place]) flash glucose sensor (FreeStyle #1 ea 01/06/23 03/09/24 Pat 2 Sensor kit) ammonium lactate 12 % topical cream 1 appl topical DAILY PRN Wound Care 02/12/23 12/14/24 silver sulfadiazine 1 % topical 1 appl topical DAILY PRN Wound Care 02/12/23 12/14/24 cream sub-q insulin device, 20 unit 02/12/23 03/09/24 (V-GO 20 device) metformin 500 mg tablet,extended 500 mg PO BID 11/03/23 12/14/24 release 24 hr diltiazem HCl 120 mg tablet 120 mg PO DAILY 03/23/24 12/14/24 aspirin 81 mg tablet,delayed 81 mg PO DAILY 05/12/24 12/14/24 release (Adult Aspirin Regimen) Previous Rx's ?Medication ?Instructions ?Recorded furosemide 20 mg tablet 20 mg PO DAILY #30 tabs 02/15/23 tamsulosin 0.4 mg capsule 0.4 mg PO BEDTIME 90 days #90 caps 08/31/24 apixaban 5 mg tablet (Eliquis) 5 mg PO BID 30 days #60 tabs 01/05/25 metoprolol tartrate 50 mg tablet 50 mg PO BID 30 days #60 tabs 01/05/25 Allergies Allergy/AdvReac Type Severity Reaction Status Date / Time peanut (PEANUTS) Allergy Intermediate Hives Verified 01/23/25 18:07 wool (WOOL) Allergy Unknown UNK Verified 01/23/25 18:07 Review of Systems Review of Systems: Yes all other systems are reviewed and are negative Constitutional: Constitutional: Denies fatigue and Denies fever(s) Cardiovascular: Cardiovascular: Denies chest pain and Denies dyspnea Respiratory: Respiratory: Denies dyspnea Gastrointestinal: Gastrointestinal: Denies abdominal pain, Denies nausea and Denies vomiting Genitourinary: Genitourinary: Reports hematuria, Denies genital pain, Denies dysuria, Denies flank pain, Denies penile discharge and Denies scrotal swelling Musculoskeletal: Musculoskeletal: Denies back pain Endocrine: Endocrine: Denies fatigue PMFSH Past Medical History Attestation statement: The following information was validated with the patient. Medical History (Updated 01/23/25 @ 22:18 by ERASMO Maldonado) Atelectasis of both lungs Chronic restrictive lung disease Atrial fibrillation Atrial fibrillation with RVR BPH (benign prostatic hyperplasia) Chronic venous stasis dermatitis GERD (gastroesophageal reflux disease) CAD (coronary artery disease) Type 2 diabetes mellitus (HFpEF) heart failure with preserved ejection fraction Surgical History Hx of colonoscopy Status post percutaneous transluminal angioplasty (INFECTIOUS WASTE TECHNICIAN) with stent placement Family History Family History Father Kidney cancer, primary, with metastasis from kidney to other site Heart disease Social History Social History Household Members: Other Housing: House Are you a primary patient care coordinator to a significant other at home: No Do you presently have visiting nurse or other home services: Yes Alcohol intake: current Alcohol intake frequency: holidays/special occasions only Patient Tobacco Use Status: Never used Tobacco Second Hand Smoke Exposure: No Use of substances other than those prescribed or required for medical reasons: No Advance Directives: Yes Advance Directives on File: Yes Advance Directives Date on File: 02/13/23 Do you have a plan to hurt others: No Plan service: No Physical Exam Vital Signs: Vital Signs: Last Vital Signs Temp 97.8 F 01/23/25 18:12 Pulse 80 01/23/25 18:12 Resp 18 01/23/25 18:12 BP 105/71 01/23/25 18:12 Pulse Ox 96 01/23/25 18:12 O2 Del Method Nasal Cannula 01/23/25 18:12 Oxygen Flow Rate 1 01/23/25 18:07 BMI result Body Mass Index 30.6 Const: Other: Alert Orientation/consciousness: patient oriented x3 Resp: Effort & Inspection: normal respiratory effort Cardio: Other: Normal peripheral perfusion : Other: No active bleeding per the meatus, there was remnant of blood clot in his brief, there was no scrotal swelling or erythema General: Yes no CVA tenderness Back/Spine/Pelvis: Back: no CVA tenderness Skin: Other: Warm dry no rash Neuro: General: patient oriented x3, gait normal, no focal motor deficits and CN's II-XI intact bilaterally Psych: Other: Cooperative Medical Decision Making Medical Decision Making MDM Narrative: 74-year-old male with a history of AFib on Eliquis, heart failure, restrictive lung disease on supplemental oxygen, KIRILL, kidney stones, who presents with a hematuria. Patient is currently at a SNF for rehabilitation, he states he ?heard a pop?, then developed bleeding from his penis. Patient denies back pain, flank pain, abdominal pain, nausea, vomiting, dysuria or fever. Denies penile pain, scrotal pain or swelling. Problem: Use of anticoagulation, age, history of kidney stones History: Per patient I have considered the following differential diagnoses: Renal colic, pyelonephritis, urinary tract infection, bladder mass/malignancy, Plan: Screening labs and urinalysis obtained, there was no evidence of infection, he is passing hematuria, we will obtain a CT scan. Doubtful to be renal colic, he is quite comfortable, doubtful to be pyelonephritis, again he is afebrile, he has no CVA tenderness, no active vomiting. I have independently reviewed the following tests: Labs: No leukocytosis, not anemic, no electrolyte abnormality, creatinine at baseline, urine not infected, passing hematuria CT abdomen and pelvis:indings: Bilateral lower lobe atelectasis. Small left pleural effusion noted. Cardiomegaly with coronary calcification. No acute bony abnormalities. Liver and spleen within normal limits. Pancreas and adrenal glands unremarkable. Gallbladder within normal limits. No bilateral renal stone or hydronephrosis. No focal renal abnormality or ureteral dilation. Small renal cysts noted. No evidence for aortic aneurysm. No free fluid or adenopathy in the pelvis. No diverticulitis. Appendix unremarkable. Enlarged heterogeneous prostate. Impression: No acute processes Differential Diagnosis Differential Diagnoses: The differential diagnosis associated with the presentation includes See medical decision Admission/Observation Consideration of admission/observation: Escalation of care including admission/observation considered Not applicable Consult Healthcare Provider Management of the patient was discussed with: Wheel Loader Operator We will be following up with the his urologist, he is an established patient of [facility] Lab Data MDM Lab Attestation statement: I reviewed the patient's lab results. 01/23/25 18:26 01/23/25 18:26 Labs: Lab Results 01/23/25 01/23/25 01/23/25 Range/Units 18:26 19:03 20:10 WBC 6.9 (4.8-10.8) X10*3/uL RBC 5.29 (4.60-5.80) X10*6/uL Hgb 13.0 L (14.0-18.0) g/dl Hct 41.1 L (42.0-52.0) % MCV 77.7 L (80.0-98.0) fL MCH 24.6 L (27.0-33.0) pg MCHC 31.6 (31.0-36.0) g/dl RDW 20.1 H (11.0-16.0) % Plt Count 211 D (160-400) X10*3/uL MPV 9.1 L (9.4-12.4) fL Immature Gran % (Auto) 0.4 (0.0-0.4) % Neut % (Auto) 69.3 (45-73) % Lymph % (Auto) 15.0 L (20-40) % [place] % (Auto) 11.8 H (2-11) % Eos % (Auto) 3.2 (0-4) % Baso % (Auto) 0.3 (0-2) % Lymph # (Auto) 1.0 L (1.2-4.9) X10*3/uL [place] # (Auto) 0.8 (0.1-1.2) X10*3/uL Eos # (Auto) 0.2 (0.0-0.4) X10*3/uL Baso # (Auto) 0.0 (0.0-0.2) X10*3/uL Abs Immat Gran (auto) 0.03 (0.00-0.03) X10*3/uL Absolute Neuts (auto) 4.7 (2.0-8.3) x10*3/uL Absolute Nucleated RBC 0.000 (0.0-0.012) X10*3/uL Nucleated RBC % (auto) 0.0 (0.0-0.2) /100WBC Sodium 136 (135-145) mmol/L Potassium 4.9 (3.3-5.1) mmol/L Chloride 102 (96-108) mmol/L Carbon Dioxide 25 (22-29) mmol/L Anion Gap 14 (12-20) BUN 23 H (9-16) mg/dL Creatinine 0.70 (0.5-1.4) mg/dL Estim Creat Clear Calc 131.8 Estimated GFR > 60 POC Glucose 180 H (60-115) mg/dL Random Glucose 219 H (60-115) mg/dL Calcium 8.9 (8.4-10.2) mg/dL Total Bilirubin 0.8 (0.0-1.0) mg/dL AST 24 (5-37) U/L ALT 17 (0-40) U/L Alkaline Phosphatase 97 (39-117) U/L Total Protein 7.2 (6.5-8.0) g/dL Albumin 3.3 L (3.5-5.0) g/dL Urine Color Yellow Urine Appearance Clear Urine pH 5.5 (5.0-9.0) Ur Specific [place] 1.015 (1.005-1.025) Urine Protein Negative (Neg-Trace) mg/dL Urine Glucose (UA) Negative (Negative) mg/dL Urine Ketones Negative (Negative) mg/dL Urine Blood Moderate (2+) H (Negative) Urine Nitrite Negative (Negative) Ur Leukocyte Esterase Negative (Negative) Urine RBC >20 H (0-2) /HPF Urine WBC 0-5 (0-5) /HPF Ur Squamous Epith Cells 0-2 (0-2) /HPF Urine Bacteria None Seen (None Seen) Hyaline Casts 0-2 (0-2) /LPF Radiology Impression Discussion of test interpretation with radiology: I have reviewed the radiologist's reading. Discharge Plan Discharge Clinical Impression: Hematuria Patient Disposition: Home, Self-Care Instructions: Hematuria (ED) Additional Instructions: Overall you had no lab abnormalities with the exception that you are passing blood in your urine, the urine itself is not infected. The CT scan of your abdomen and pelvis revealed that you have renal cyst, no other acute abnormality. You need to follow up with your urologist, you require further assessment as an outpatient to determine the source of the hematuria, call tomorrow to schedule an appointment. Prescriptions: No Action tamsulosin 0.4 mg capsule 0.4 mg PO BEDTIME 90 Days Qty: 90 4RF silver sulfadiazine 1 % cream 1 appl topical DAILY PRN (Reason: Wound Care) ammonium lactate 12 % cream 1 appl topical DAILY PRN (Reason: Wound Care) (DME) V-GO 20 Device MISCELLANEOUS furosemide 20 mg tablet 20 mg PO DAILY Qty: 30 0RF metoprolol tartrate 50 mg Tablet 50 mg PO BID 30 Days Qty: 60 0RF Protocol: Hold for SBP/HR < HOLD for SBP < : 90 HOLD for HR < : 60 Eliquis 5 mg Tablet 5 mg PO BID 30 Days Qty: 60 0RF (DME) FreeStyle Pat [address] [place] Misc See Rx Instructions .ROUTE .MEDSUPPLY Qty: 1 Rx Instructions: As directed (DME) FreeStyle Pat 2 Sensor Kit See Rx Instructions .ROUTE .MEDSUPPLY Qty: 1 Rx Instructions: As directed metformin 500 mg tablet extended release 24 hr 500 mg PO BID diltiazem HCl 120 mg tablet 120 mg PO DAILY aspirin [Adult Aspirin Regimen] 81 mg tablet,delayed release (DR/EC) 81 mg PO DAILY atorvastatin 40 mg tablet 40 mg PO BEDTIME insulin lispro [Humalog U-100 Insulin] 100 unit/mL solution See Rx Instructions .ROUTE .COMPLEX Rx Instructions: Vego 20 insulin pump; pt changes/injects Q36H, unsure how much he injects at this time. folic acid 1 mg tablet 1 mg PO DAILY@1200 Print Language: Latvian
[2025-01-23 23:38] VITALS: BP 126/66; PULSE 92; RESP 18; TEMP 36.6; O2SAT 96
[2025-01-24 00:46] VITALS: BP 126/66; PULSE 92; RESP 18; TEMP 36.6; O2SAT 96
--- NOTE | 2025-01-24 00:46 | PC.NURSE ---
[facility] via [facility].
== END 2025-01-24 00:47 | disposition home or self-care (01) ==
PROVIDERS: Emergency Provider Emergency Medicine; PCP Internal Medicine
DX: R31.9 Hematuria, unspecified (principal); R10.22 Pelvic and perineal pain left side; E11.9 Type 2 diabetes mellitus without complications; Z79.4 Long term (current) use of insulin; Z79.899 Other long term (current) drug therapy
CPT/HCPCS: 36415; 74176; 80053; 81001; 82947; 85025; 99284

== ENCOUNTER → 2025-01-23 20:22 | Outpatient (BNV) | payer MEDICARE, SELFPAY | PROVIDERS: Emergency Provider Emergency Medicine; PCP Internal Medicine; Visit Provider Radiology Diagnostic Radiology | DX: N23 Unspecified renal colic (principal); R31.9 Hematuria, unspecified | CPT/HCPCS: 74176 ==

== ENCOUNTER 2025-01-24 06:37 | Outpatient (REF) | payer MEDICARE, SELFPAY ==
--- OUTSIDE RECORDS SUMMARY | 2024-12-31 04:30 | XMS_ITS ---
Author Organization [facility] Address [address] [address] Care Team Providers Care Architectural Intern Name Role Phone Katie Gaytan Primary Care Provider UnavailNAT Villalobos [phone] REASON FOR VISIT 9wk DM Encounters Encounter Location Date Provider Diagnosis [facility] [address] [address] 12/31/2024 NAT BROWN Plan Of Treatment No Information Progress Notes * Randy TANDOB:1950 (74 yo M)Acc No.[id number]:12/31/2024 Progress Note Patient: Daniel HORNin Ludin Provider: Tono Brown DPM :1950 A ge:74 Y S ex:Male Date:12/31/2024 Address:[address] [place] [address] [facility] [id number] Pcp:Katie Gaytan Subjective: * Chief Complaints: * 1 . 9wk DM. * Medical History: Objective: * Vitals: Assessment: Plan: * Treatment: * Billing Information: * Visit Code: * Procedure Codes: * Electronic signature of Hortencia TRORESPAndrew on 01/24/2025 at 06:42 AM EDT Sign off status: Pending * Provider: Tono Brown DPM Date: 0 12/31/2024 Generated for Printi ng/Faxing/eTransmitting on: 1 06:42 AM EDT
--- OUTSIDE RECORDS SUMMARY | 2025-01-03 04:30 | XMS_ITS ---
Author Organization [facility] Address [address] [address] Care Team Providers Care Surg Physician Asst Name Role Phone Katie Gaytan Primary Care Provider UnavailNAT Villalobos [phone] REASON FOR VISIT 9wk DM Encounters Encounter Location Date Provider Diagnosis [facility] [address] [address] 01/03/2025 NAT BROWN Plan Of Treatment No Information Progress Notes * Randy TANDOB:1950 (74 yo M)Acc No.[id number]:01/03/2025 Progress Note Patient: Daniel HORNin Ludin Provider: Tono Brown DPM :1950 A ge:74 Y S ex:Male Date:01/03/2025 Address:[address] [place] [address] [facility], [id number] Pcp:Katie Gaytan Subjective: * Chief Complaints: * 1 . 9wk DM. * Medical History: Objective: * Vitals: Assessment: Plan: * Treatment: * Billing Information: * Visit Code: * Procedure Codes: * Electronic signature of Hortencia TORRESPAndrew on 01/24/2025 at 06:42 AM EDT Sign off status: Pending * Provider: Tono Brown DPM Date: 0 01/03/2025 Generated for Printi ng/Faxing/eTransmitting on: 1 06:42 AM EDT
[2025-01-24 06:31] LABS: MANUAL DIFF FLAG NO
[2025-01-24 06:39] LABS: Hematocrit 39.4 % (42.0-52.0); Hemoglobin 11.8 g/dl (14.0-18.0); Imm Gran Abs Auto 0.02 X10*3/uL (0.00-0.03); Imm Gran Pct Auto 0.3 % (0.0-0.4); Lymphocytes Absolute Auto 1.4 X10*3/uL (1.2-4.9); Mean Corpuscular HGB Conc 29.9 g/dl (31.0-36.0); Mean Corpuscular Hemoglobin 24.2 pg (27.0-33.0); Mean Corpuscular Volume 80.9 fL (80.0-98.0); NRBC Abs Auto 0.000 X10*3/uL (0.0-0.012); NRBC Pct Auto 0.0 /100WBC (0.0-0.2); Platelet Count 200 X10*3/uL (160-400); Red Blood Count 4.87 X10*6/uL (4.60-5.80); White Blood Count 6.4 X10*3/uL (4.8-10.8)
--- OUTSIDE RECORDS SUMMARY | 2025-01-24 06:42 | XMS_ITS | Patient Health Record ---
Author Organization [facility] Address [address] [facility] [address] [facility] [place] [address] Care Team Providers Care Yarn Cleaner Name Role Phone Katie Gaytan Primary Care Provider NAT Bai Unavailable [phone] Allergies Allergen (clinical drug ingredient) Drug/Non Drug [...] Polyneuropathy due to type 2 diabetes mellitus (508954866) Type 2 diabetes mellitus with diabetic polyneuropathy (E11.42) Active confirmed Problem Long-term current use of insulin (418302555) ad terminal makeup operator (current) use of insulin (Z79.4) Active confirmed Problem Peripheral vascular disease (371155439) PVD (peripheral vascular disease) (I73.9) Active confirmed Problem Peripheral venous insufficiency (17058949) Venous stasis dermatitis of both lower extremities (I87.2) Active confirmed Problem Ulcer of right lower extremity, limited to breakdown of skin (L97.911) Active confirmed Problem Ankle ulcer (363561840) Skin ulcer of right ankle with fat layer exposed (L97.312) Active confirmed Vital Signs Heart Rate 87 /min 10/27/2024 Temperature 96.6 degrees Fahrenheit 10/27/2024 Respiratory Rate 20 /min 10/27/2024 Height 6ft 4in in 10/27/2024 Weight 258.2 lbs 10/27/2024 BMI 31.43 kg/m2 10/27/2024 Encounters Encounter Location Date Provider Diagnosis [facility] [address] [address] 01/30/2024 NATMARVIN BROWN Type 2 diabetes mellitus with diabetic polyneuropathy E11.42 ; Dystrophic nail L60.3 ; Pain in left toe(s) M79.675 ; Pain in right toe(s) M79.674 ; Venous stasis dermatitis of both lower extremities I87.2 and Localized swelling of both lower legs R22.43 [facility] [address] [address] 04/05/2024 NATMARVIN BROWN Type 2 diabetes mellitus with diabetic polyneuropathy E11.42 ; Dystrophic nail L60.3 ; Pain in left toe(s) M79.675 ; Pain in right toe(s) M79.674 ; Venous stasis dermatitis of both lower extremities I87.2 and Localized swelling of both lower legs R22.43 [facility] [address] 06/18/2024 NAT BROWN Type 2 diabetes mellitus with diabetic polyneuropathy E11.42 ; Dystrophic nail L60.3 ; Pain in left toe(s) M79.675 ; Pain in right toe(s) M79.674 ; Venous stasis dermatitis of both lower extremities I87.2 and Localized swelling of both lower legs R22.43 [facility] [address] 08/20/2024 NAT BROWN Type 2 diabetes mellitus with diabetic polyneuropathy E11.42 ; Tinea pedis, right B35.3 ; Dystrophic nail L60.3 ; Pain in left toe(s) M79.675 ; Pain in right toe(s) M79.674 ; Venous stasis dermatitis of both lower extremities I87.2 and Localized swelling of both lower legs R22.43 [facility] [address] 10/27/2024 NAT BROWN Ulcer of right lower extremity, limited to breakdown of skin L97.911 ; Cellulitis of right leg L03.115 ; Type 2 diabetes mellitus with diabetic polyneuropathy E11.42 ; Dystrophic nail L60.3 ; Pain in right toe(s) M79.674 and Pain in left toe(s) M79.675 [facility] [address] 06/18/2024 NAT BROWN [facility] [address] 06/18/2024 NAT BROWN [facility] [address] 08/23/2024 NAT BROWN Assessments Encounter Date [...] PO BID x 10 days sent to [facility] pharmacy per the patient's request. Pt to [...] Aseptic debridement of toenails x 10 with fingernail sculpturer and curette, pt tolerated well. Discussed with [...] Aseptic debridement of toenails x 10 with fingernail sculpturer and curette, pt tolerated well. Discussed with [...] Aseptic debridement of toenails x 10 with fingernail sculpturer and curette, pt tolerated well. Discussed with [...] Aseptic debridement of toenails x 10 with fingernail sculpturer and curette, pt tolerated well. Discussed with [...] Aseptic debridement of toenails x 10 with fingernail sculpturer and curette, pt tolerated well. Discussed with [...] disease. I will request the records from [facility] for his most recent studies. He [...] Date Coverage End Date [employer] Medicare [id number] [address] [address] [place] [address] [id number] Molly dueñas Randy Self - patient is [...] Date(Month/Year) inguinal hernia repair cardiac stent - [facility] 11/2022 Hospitalization History Reason Date(Month/Year) Afib 02/2023 Afib, water retention 01/2023
--- OUTSIDE RECORDS SUMMARY | 2025-01-24 06:42 | XMS_ITS | Encounter Summary ---
Author Organization [facility] Address [address] [place] [address] Care Team Providers Care Employee Communications Specialist Name Role Phone Katie Gaytan MD Primary Care Provider [phone] Reason for Visit * Reason Onset Date Comments No Show 01/21/2025 10.3.25 Encounter Details Date Type Department Care Team ([facility] st Contact Info) Description 01/21/2025 Telephone [facility] [address] [facility] [address] [place] [address] Sarah Lee NP [address] [place] [address] [place] [address] Social History Tobacco Use Types [...] for your loved ones. For example, child development teacher or elderly care for an older [...] 9:20 AM EST Office Visit Endocrinology - [place] [address] [place] [address] Julia Oconnell PA [address] [place] [address] documented as of this encounter Visit Diagnoses Not on filedocumented in this encounter Additional Health Concerns Assessment Noted Time PHQ-9 Depression Total Score: 0 03/22/20 10:44 AM EST A fall risk assessment has been complete d for the patient 03/20/2024 12:04 PM EST documented as of this encounter Care Teams Employee Communications Specialist Relationship Specialty Start Date End Date Katie Gaytan MD [address] [place] [address] PCP - General 02/18/1999 documented as of this encounter
--- OUTSIDE RECORDS SUMMARY | 2025-01-24 06:42 | XMS_ITS | Encounter Summary ---
Author Organization [facility] Address [address] [place] [address] Care Team Providers Care Grocery Cashier Name Role Phone Katie Gaytan MD Primary Care Provider [phone] Encounter Details Date Type Department Care Team ([facility] st Contact Info) Description 12/27/2024 Telephone Adult Medicine [facility] [place] [address] [place] [id number] Katie Gaytan MD [address] [place] [address] Social History Tobacco Use Types Packs/Day Years [...] your loved ones. For example, child care center assistant director or elderly care for an older [...] for a couple week at [facility] reason why Patient missed his appointment on 12/24/24. Patient's Partner looking for call back ( She is Emergency Contact but we have No updated Verbal Release on file orHealthcare Proxy) documented in this encounter Plan of Treatment Upcoming Encounters Date Type Department Care Team (Late st Contact Info) Description 03/30/2025 9:20 AM EST Office Visit Endocrinology [facility] [address] [place] [address] Julia Oconnell PA [address] [place] [address] documented as of this encounter Visit Diagnoses Not on filedocumented in this encounter Additional Health Concerns Assessment Noted Time PHQ-9 Depression Total Score: 0 03/22/20 10:44 AM EST A fall risk assessment has been complete d for the patient 03/20/2024 12:04 PM EST documented as of this encounter Care Teams Grocery Cashier Relationship Specialty Start Date End Date Katie Gaytan MD [address] [place] [address] PCP - General 02/18/1999 documented as of this encounter
--- OUTSIDE RECORDS SUMMARY | 2025-01-24 06:42 | XMS_ITS | Clinical Summary ---
Author Organization [facility] Address [address] [facility] [address] [place] [address] Phone Care Team Providers Care Sensor Operator Name Role Phone Katie Gaytan MD Primary Care Provider [phone] Social History Tobacco Use Types Packs/Day Years [...] topic Medical Devices Not on file Insurance [employer] MED[employer] REPL[employer]EMENT MEDICARE PART A & B [employer] MED[employer] REPLACEMENT [place] [id number] MEDICARE PART A & B Member Subscriber Plan / Payer (Ef fective 2017-Present) Name:Randy Tan Member ID:[id number] Relation to Subscriber:Self Name:Randy Tan Subscriber ID:[id number] Payer ID:[id number] Group ID:Not on file Type:Medicare Address: [address] MEDICARE REPLACEMENT MEDICARE PART A & B MEDICARE REPLACEMENT MEDICARE PART A & B MEDICARE REPLACEMENT MEDICARE PART A & B [employer] MEDIC[employer] REPLACEMENT MEDICARE PART A & B Care Teams Sensor Operator Relationship Specialty Start Date End Date Katie Gaytan MD [address] [place] [address] PCP - General Internal Medicine 04/17/23 Additional Source Comments The information contained in this document represents components of the legal health record. It is not the complete legal health record.[facility]
--- OUTSIDE RECORDS SUMMARY | 2025-01-24 06:42 | XMS_ITS | Clinical Summary ---
Author Organization [address] [place] [address] [place] [address] Phone Care Team Providers Care Car Supervisor Name Role Phone Katie Gaytan MD Primary Care Provider [phone] Allergies Active Allergy Reactions Criticality Noted Date [...] 90 tablet 2 025 Active blood-glucose meter,continuous (Anybotsyle Pat 3 [place]) miscIndications: DM (diabetes mellitus), type 2 with [...] calf with varicose veins, unspecified ulcer stage ([facility] V24, [facility] V28),Venous stasis ulcer of right calf limited to breakdown of skin with varicose veins ([facility] V24, [facility] V28),Personal history of DVT (deep vein thrombosis),Post [...] current use of insulin, unspecified CKD stage ([facility] V24, [facility] V28) Change sensor every 15 days 6 [...] (diabetes mellitus), type 2 with neurological complications ([facility] V24, [facility] V28) Use to check bs daily 1 each 025 Active blood sugar diagnostic (Contour Next Test Strips) test stripIndications :DM (diabetes mellitus), type 2 with neurological complications ([facility] V24, [facility] V28) Use to check bs 3 times a day 100 each 12 025 2025 Active lancets (Microlet Lancet) lancetsIndicatio ns:DM (diabetes mellitus), type 2 with neurological complications ([facility] V24, [facility] V28) Use to check bs 3 times [...] vein thrombosis) 1 04/27/2023 Hypotension 05/16/2023 Sepsis ([facility] V24, [facility] V28) 05/16/2023 Urinary tract infection with hematuria Overview (02/02/2024): Urosepsis, please see note 04/30/23, obstructive uropathy likely from BPH, requiring prolonged Julio cath/bag. Following with urology Dr. 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 Embolism and thrombosis of a rteries of lower extremity ([facility] V24, [facility] V28) 03/18/2017 Umbilical hernia without obstruction and without gangrene 03/02/2015 Assessment & Plan (03/24/2024 1:07 PM EST): Other specified anemias 02/15/2015 DM ketoacidosis type II, unc ontrolled ([facility] V24, [facility] V28) 09/21/2014 Microalbuminuria 09/21/2014 Nuclear sclerosis 09/21/2014 [...] due t o type 2 diabetes mellitus ([facility] V24, [facility] V28) 05/29/2005 Overview (02/02/2024): Last Assessment & [...] continue to follow with your specilaist at [facility], and get me the [...] just unsure what to do Educational Resources [place] Diabetes [employer] (www.diabetes.org) Centers for Disease Control and Prevention (www.cdc.gov/diabetes) This care plan was created in collaboration with Randy Tan on 02/14/2014 DVT, lower extremity (CMS/HCC V24, 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/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, followed by hematology IMO update Esophageal reflux 05/29/2005 Overview (02/02/2024): The patient underwent upper GI endoscopy 08.30.05 at [facility] for the evaluation of reflux and [...] Plan (03/24/2024 1:07 PM EST): Morbid obesity ([facility] V24, [facility] V28) 2005 Pure hypercholesterolemia 05/29/2005 Assessment & [...] Type Department Care Team Description 01/21/2025 Telephone [facility] [address] [place] [address] Sarah Lee NP 12/27/2024 Telephone Adult Medicine [facility] - [address] [phone] Katie Gaytan MD 12/22/2024 Telephone [facility] [address] [place] [address] Sarah Lee NP 12/13/2024 Anticoagulation - Warfarin Visit Coumadin [facility] - [address] [phone] Latasha Deleon LPN Personal history of DVT (deep vein thrombosis) (Primary Dx) 12/09/2024 10:00 AM EDT Ancillary Procedure [facility] [address] [place] [address] PAD (peripheral artery disease) ([facility] V24); Ectasia of artery ([facility] V24) 12/07/2024 Telephone Vascular Surgery - [place] [address] [place] [phone] Jose Kauffman MD 12/06/2024 Anticoagulation - Warfarin Visit Coumadin [address] [phone] Latasha Deleon LPN Personal history of DVT (deep vein thrombosis) (Primary Dx) 11/30/2024 Telephone Adult Medicine [address] [phone] Carmelita Henson RN 11/30/2024 Telephone [facility] [address] [facility] [address] [place] [phone] Yovany Giles MD 11/30/2024 Telephone Adult [address] [phone] Katie Gaytan MD 11/29/2024 Anticoagulation - Warfarin Visit Coumadin [address] [phone] Shonna White LPN Personal history of DVT (deep vein thrombosis) (Primary Dx) 11/22/2024 Anticoagulation - Warfarin Visit Coumadin [address] [phone] Shonna White LPN Personal history of DVT (deep vein thrombosis) (Primary Dx) 11/16/2024 Telephone Endocrinology [address] [phone] Julia Oconnell PA 11/15/2024 Anticoagulation - Warfarin Visit [facility] [address] [phone] Shonna White LPN Personal history of DVT (deep vein thrombosis) (Primary Dx) 11/08/2024 Anticoagulation - Warfarin Visit [facility] [address] [phone] Latasha Deleno LPN Personal history of DVT (deep vein thrombosis) (Primary Dx) 11/01/2024 9:00 AM EDT Ancillary Procedure [facility] [address] [place] [address] Longstanding persistent atrial fibrillation ([facility]/HCC V24, CMS/HCC V28) 11/01/2024 Anticoagulation - Warfarin Visit Coumadin [address] [phone] Shonna White LPN Personal history of DVT (deep vein thrombosis) (Primary Dx) 10/29/2024 8:30 AM EDT Office Visit Adult Medicine [address] [phone] Katie Gaytan MD Cellulitis and abscess of leg (Primary Dx) 10/26/2024 Anticoagulation - Warfarin Visit Coumadin [address] [phone] Shonna White LPN Personal history of DVT [...] + Ba.1 (Non-US Trademark COMIRNATY Bivalent) 12/25/2021 JDLab SARS-CoV-2 COVID-19, mRNA, LNP-S, preservative free 01/20/2021 [...] (diabetes mellitus), type 2 with neurological complications ([facility] V24, [facility] V28) 09/01/2017 DX:DM (diabetes mellitus), t ype 2 with neurological complications ([facility]) Family History Medical History Relation Name Comments [...] care for your loved ones. For example, childrens club attendant or elderly care for an older adult? [...] 9:20 AM EST Office Visit Endocrinology - [place] [address] [place] [address] Julia Oconnell PA [address] [place] [address] Health Maintenance Due Date Last Done Comments [...] 11:32 AM EDT PAD (peripheral artery disease) ([facility] V24) Ectasia of artery ([facility] V24) PROTHROMBIN TIME WITH INR 12/06/2024 PROTHROMBIN [...] PSV 64 cm/s CV VAS LAB Left MOTOR VEHICLE OPERATOR ROAD SUPERVISOR prox sys PSV 70 cm/s CV VAS [...] PSV 51 cm/s CV VAS LAB Right MOTOR VEHICLE OPERATOR ROAD SUPERVISOR prox sys PSV 77 cm/s CV VAS [...] The mid peroneal artery has triphasic flow. De Ionizer Operator Details A reid scale, color and doppler analysis ultrasound was performed. During the study longitudinal views were obtained. Pulsed wave doppler was performed. Talia ZIMMERMAN CV VASCULAR PROCEDURES Final Result * (ABNORMAL) B-type natriuretic peptide (12/02/2024 9:29 AM EDT) [facility] BNP 266(H) <=100 pcg/mL LAB CHEMISTRY METHOD 12/02/2024 11:50 AM EDT [facility] Blood Venous blood specimen / Unknown Venipuncture / Unknown 12/02/2024 9:29 AM EDT 12/02/2024 9:29 AM EDT Sarah Lee NP LAB BLOOD ORDERABLES Final Resu lt [facility] [address] [place] [address], [place] [phone] * (ABNORMAL) Basic metabolic panel (12/02/2024 9:29 AM EDT) [facility] Sodium 139 133 - 145 mmol/L LAB CHEMISTRY METHOD 12/02/2024 12:42 PM [facility] Potassium 4.2 3.5 - 5.5 mmol/L LAB CHEMISTRY METHOD 12/02/2024 12:42 PM [facility] Chloride 103 96 - 110 mmol/L LAB CHEMISTRY METHOD 12/02/2024 12:42 PM [facility] CO2 32 21 - 32 mmol/L LAB CHEMISTRY METHOD 12/02/2024 12:42 PM [facility] Anion Gap 4 3 - 11 LAB CHEMISTRY METHOD 12/02/2024 12:42 PM [facility] Glucose 216(H) 70 - 100 mg/dL LAB CHEMISTRY METHOD 12/02/2024 12:42 PM EDT [facility] BUN 17 5 - 25 mg/dL LAB CHEMISTRY METHOD 12/02/2024 12:42 PM EDT [facility] Creatinine 0.98 0.70 - 1.30 mg/dL LAB CHEMISTRY METHOD 12/02/2024 12:42 PM EDT [facility] eGFR 82 >=60 mL/min/1. 73m2 LAB CHEMISTRY METHOD 12/02/2024 12:42 PM EDT [facility] Comment:Calculation based on the Chronic Kidney Disease Epidemiology Collaboration (CKD-EPI) equation refit without adjustment for race. BUN/Creatinine Ratio 17.3 LAB CHEMISTRY METHOD 12/02/2024 12:42 PM EDT [facility] Calcium 8.6 8.5 - 10.5 mg/dL LAB CHEMISTRY METHOD 12/02/2024 12:42 PM EDT [facility] Blood Venous blood specimen / Unknown Venipuncture / Unknown 12/02/2024 9:29 AM EDT 12/02/2024 9:29 AM EDT Sarah Lee FOUR CORNER FORMER MACHINE OPERATOR LAB BLOOD ORDERABLES Final Resu lt [facility] [address] [place] [address], * (ABNORMAL) Hemoglobin A1c (12/02/2024 7:55 AM EDT) Hemoglobin A1C 6.8(H) <6.5 % LAB CHEMISTRY METHOD 12/02/2024 11:37 AM EDT [facility] Mean Bld Glu Estim. 148 mg/dL LAB CHEMISTRY METHOD 12/02/2024 11:37 AM EDT [facility] Blood Venous blood specimen / Unknown Venipuncture / Unknown 12/02/2024 7:55 AM EDT 12/02/2024 7:55 AM EDT Julia ZIMMERMAN LAB BLOOD ORDERABLES Final Resul t Performing Organization Address [facility]/ZIP Co de Phone Number [facility] [address] [place] [address], * (ABNORMAL) Digoxin level (12/02/2024 7:55 AM EDT) Digoxin Lvl 0.3(L) 0.5 - 2.0 ng/mL LAB CHEMISTRY METHOD 12/02/2024 11:16 AM EDT [facility] Blood Venous blood specimen / Unknown Venipuncture / Unknown 12/02/2024 7:55 AM EDT 12/02/2024 7:55 AM EDT Radha Hudson NP LAB BLOOD ORDERABLES Final Resu lt Performing Organization Address [facility] Co de Phone Number [facility] [address] [place] [address], * CARDIAC HOLTER MONITOR (REPORT GENERATED IN HOUSE) (11/01/2024 9:05 AM EDT) Anatomical Region Laterality Modality Cardiac Diagnost ic Narrative 11/03/2024 7:47 AM EDT [facility] DI[facility]ST[facility]ING DEPARTMENT [address] [place] [id number] TEL: FAX: Type of Test: 24 Hour Holter Monitor Date of Test: 11/01/2024 Ordering Provider: Radha Hudson NP Reason for Test: Longstanding persistent atrial fibrillation [employer] 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 [...] of 74 bpm. Occasional PVCs. Radha Hudson FOUR CORNER FORMER MACHINE OPERATOR CV CARDIAC SERVICES PROCEDURES Final Result * (ABNORMAL) Lipid panel with reflex to direct LDL (08/25/2024 1:50 PM EDT) Cholesterol 99 0 - 200 mg/dL LAB CHEMISTRY METHOD 08/25/2024 6:50 PM EDT [facility] Triglycerides 134 0 - 150 mg/dL LAB CHEMISTRY METHOD 08/25/2024 6:50 PM EDT [facility] HDL 39(L) >=40 mg/dL LAB CHEMISTRY METHOD 08/25/2024 6:50 PM EDT [facility] LDL Calculated 33 0 - 100 mg/dL LAB CHEMISTRY METHOD 08/25/2024 6:50 PM EDT [facility] VLDL Cholesterol Aramis 26.8 mg/dL LAB CHEMISTRY METHOD 08/25/2024 6:50 PM EDT [facility] Non HDL Chol. (LDL+VLDL) 60 <145 mg/dL LAB CHEMISTRY METHOD 08/25/2024 6:50 PM EDT [facility] Chol/HDL Ratio 2.5 0.0 - 4.4 LAB CHEMISTRY METHOD 08/25/2024 6:50 PM EDT [facility] Blood Venous blood specimen / Unknown Venipuncture / Unknown 08/25/2024 1:50 PM EDT 08/25/2024 1:50 PM EDT Jose Armando Oakley FOUR CORNER FORMER MACHINE OPERATOR LAB BLOOD ORDERABLES Final R esult [facility] [address] [place] [address], * (ABNORMAL) Microalbumin creatinine urine ratio (08/25/2024 1:50 PM EDT) Creatinine, Urine 103.0 mg/dL LAB CHEMISTRY METHOD 08/25/2024 6:51 PM EDT [facility] Microalb, Ur 121.0(H) 0.0 - 29.0 mg/L LAB CHEMISTRY METHOD 08/25/2024 6:51 PM EDT [facility] Microalb/Crea t Ratio 117(H) <30 mg/g creat LAB CHEMISTRY METHOD 08/25/2024 6:51 PM EDT [facility] Urine Urine specimen obtained by clean catch procedure / Unknown Non-blood Collection / Unknown 08/25/2024 1:50 PM EDT 08/25/2024 1:50 PM EDT Jose Armando Oakley FOUR CORNER FORMER MACHINE OPERATOR LAB URINE ORDERABLES Final R esult [facility] [address] [place] [address], * Diabetes Foot Exam (11/28/2023) [facility] Diabetes: Annual Foot Exam Abstracted Historical Provider HEALTH MAINTENANCE Final Result * Colonoscopy (06/10/2018) [facility] Colonoscopy No interpreta tion,abstr acted Anatomical Region Laterality Modality Other Historical Provider HEALTH MAINTENANCE Final Result * Hepatitis C Screening (03/13/2013) [facility] Hepatitis C Screening Abstracted Historical Provider HEALTH MAINTENANCE Final Result from Last 3 Months or Most Recently Relevant to Health Maintenance Insurance [employer] MEDICARE Care Teams Car Supervisor Relationship Specialty Start Date End Date Katie Gaytan MD [address] [place] [address] PCP - General 02/18/1999
--- OUTSIDE RECORDS SUMMARY | 2025-01-24 06:42 | XMS_ITS | Encounter Summary ---
Author Organization [facility] Address [address] [place] [address] Care Team Providers Care Rn Eligibility Name Role Phone Katie Gaytan MD Primary Care Provider [phone] Encounter Details Date Type Department Care Team (Latest Contact Info) Description 03/02/2024 Anticoagulation - Warfarin Visit Coumadin Clinic - [address] [phone] Shonna White LPN Personal history of DVT [...] 9:20 AM EST Office Visit Endocrinology - [address] [phone] Julia Oconnell PA [address] [place] [address] documented as of this encounter Visit Diagnoses Diagnosis Personal history of DVT (deep vein thrombosis)- Primary Personal history of venous thrombosis and embolism documented in this encounter Care Teams Rn Eligibility Relationship Specialty Start Date End Date Katie Gayatn MD [address] [place] [address] PCP - General 02/18/1999 documented as of this encounter
[2025-01-24 07:02] LABS: Anion Gap 10 (12-20); Blood Urea Nitrogen 18 mg/dL (9-16); Calcium 8.7 mg/dL (8.4-10.2); Carbon Dioxide 27 mmol/L (22-29); Chloride 104 mmol/L (96-108); Estimated Glomerular Filt Rate > 60; Potassium 4.3 mmol/L (3.3-5.1); Sodium 137 mmol/L (135-145)
== END 2025-01-24 06:38 | disposition home or self-care (01) ==
LOC: HO.MMNH1L 06:37
PROVIDERS: Visit Provider Physician Assistant Medical
DX: I10 Essential (primary) hypertension (principal); E11.9 Type 2 diabetes mellitus without complications
CPT/HCPCS: 36415; 80048; 85025

== ENCOUNTER 2025-01-25 05:36 | Outpatient (REF) | payer MEDICARE, SELFPAY ==
--- OUTSIDE RECORDS SUMMARY | 2024-12-31 04:30 | XMS_ITS ---
Author Organization [facility] Address [address] [address] Care Team Providers Care Advertising Account Manager Name Role Phone Katie Gaytan Primary Care Provider UnavailNAT Villalobos [phone] REASON FOR VISIT 9wk DM Encounters Encounter Location Date Provider Diagnosis [facility] [address] [address] 12/31/2024 NAT BROWN Plan Of Treatment No Information Progress Notes * Randy TANDOB:1950 (74 yo M)Acc No.[id number]:12/31/2024 Progress Note Patient: Daniel HORNin Ludin Provider: Tono Brown DPM :1950 A ge:74 Y S ex:Male Date:12/31/2024 Address:[address] [place] [address] [facility] [id number] Pcp:Katie Gaytan Subjective: * Chief Complaints: * 1 . 9wk DM. * Medical History: Objective: * Vitals: Assessment: Plan: * Treatment: * Billing Information: * Visit Code: * Procedure Codes: * Electronic signature of Hortencia TORRESPAndrew on 01/25/2025 at 05:39 AM EDT Sign off status: Pending * Provider: Tono Brown DPM Date: 0 12/31/2024 Generated for Printi ng/Faxing/eTransmitting on: 1 05:39 AM EDT
--- OUTSIDE RECORDS SUMMARY | 2025-01-03 04:30 | XMS_ITS ---
Author Organization [facility] Address [address] [address] Care Team Providers Care Toe Puller Name Role Phone Katie Gaytan Primary Care Provider UnavailNAT Villalobos [phone] REASON FOR VISIT 9wk DM Encounters Encounter Location Date Provider Diagnosis [facility] [address] [address] 01/03/2025 NAT BROWN Plan Of Treatment No Information Progress Notes * Randy TANDOB:1950 (74 yo M)Acc No.[id number]:01/03/2025 Progress Note Patient: Daniel HORNin Ludin Provider: Tono Brown DPM :1950 A ge:74 Y S ex:Male Date:01/03/2025 Address:[address] [place] [address] [facility] [id number] Pcp:Katie Gaytan Subjective: * Chief Complaints: * 1 . 9wk DM. * Medical History: Objective: * Vitals: Assessment: Plan: * Treatment: * Billing Information: * Visit Code: * Procedure Codes: * Electronic signature of Hortencia TORRESPAndrew on 01/25/2025 at 05:39 AM EDT Sign off status: Pending * Provider: Tono Brown DPM Date: 0 01/03/2025 Generated for Printi ng/Faxing/eTransmitting on: 1 05:39 AM EDT
--- OUTSIDE RECORDS SUMMARY | 2025-01-25 05:39 | XMS_ITS | Clinical Summary ---
Author Organization [facility] Address [address] [facility] [address] [place] [address] Phone Care Team Providers Care Briar Wood Sorter Name Role Phone Katie Gaytan MD Primary Care Provider [phone] Social History Tobacco Use Types Packs/Day Years [...] topic Medical Devices Not on file Insurance [facility] MEDICARE REPLACEMENT MEDICARE PART A & B [facility] MEDICARE REPLACEMENT [place] [id number] MEDICARE PART A & B Member Subscriber Plan / Payer (Ef fective 2017-Present) Name:Randy Tan Member ID:[id number] Relation to Subscriber:Self Name:Randy Tan Subscriber ID:[id number] Payer ID:[id number] Group ID:Not on file Type:Medicare Address: [employer] [id number] MEDICARE REPLACEMENT MEDICARE PART A & B MEDICARE REPLACEMENT MEDICARE PART A & B MEDICARE REPLACEMENT MEDICARE PART A & B [facility] MEDICARE REPLACEMENT MEDICARE PART A & B Care Teams Briar Wood Sorter Relationship Specialty Start Date End Date Katie Gaytan MD [address] [place] [address] PCP - General Internal Medicine 04/17/23 Additional Source Comments The information contained in this document represents components of the legal health record. It is not the complete legal health record.[facility]
--- OUTSIDE RECORDS SUMMARY | 2025-01-25 05:39 | XMS_ITS | Encounter Summary ---
Author Organization [facility] Address [address] [place] [address] Care Team Providers Care Studio Designer Name Role Phone Katie Gaytan MD Primary Care Provider [phone] Encounter Details Date Type Department Care Team (Latest Contact Info) Description 03/02/2024 Anticoagulation - Warfarin Visit Coumadin Clinic - [address] [phone] Shonna White LPN Personal history of DVT [...] 9:20 AM EST Office Visit Endocrinology - [address] [phone] Julia Oconnell PA [address] [place] [address] documented as of this encounter Visit Diagnoses Diagnosis Personal history of DVT (deep vein thrombosis)- Primary Personal history of venous thrombosis and embolism documented in this encounter Care Teams Studio Designer Relationship Specialty Start Date End Date Katie Gaytan MD [address] [place] [address] PCP - General 02/18/1999 documented as of this encounter
--- OUTSIDE RECORDS SUMMARY | 2025-01-25 05:39 | XMS_ITS | Encounter Summary ---
Author Organization [facility] Address [address] [place] [address] Care Team Providers Care Reed Or Wind Instrument Repairer Name Role Phone Katie Gaytan MD Primary Care Provider [phone] Encounter Details Date Type Department Care Team ([facility] st Contact Info) Description 12/27/2024 Telephone Adult Medicine [facility] [address] [place] [phone] Katie Gaytan MD [address] [place] [address] Social History Tobacco Use Types Packs/Day Years [...] for your loved ones. For example, child & adolescent psychiatrist or elderly care for an [...] been hospitalized for a couple week at [facility] reason why Patient missed his [...] Endocrinology [facility] [address] [place] [address] Julia Oconnell PA [address] [place] [address] documented as of this encounter Visit Diagnoses Not on filedocumented in this encounter Additional Health Concerns Assessment Noted Time PHQ-9 Depression Total Score: 0 03/22/20 10:44 AM EST A fall risk assessment has been complete d for the patient 03/20/2024 12:04 PM EST documented as of this encounter Care Teams Reed Or Wind Instrument Repairer Relationship Specialty Start Date End Date Katie Gaytan MD [address] [place] [address] PCP - General 02/18/1999 documented as of this encounter
--- OUTSIDE RECORDS SUMMARY | 2025-01-25 05:40 | XMS_ITS | Patient Health Record ---
Author Organization [facility] Address [address] [facility] [address] [facility] [place] [address] Care Team Providers Care Insurance Claim Auditor Name Role Phone Katie Gaytan Primary Care Provider NAT Bai Unavailable [phone] Allergies Allergen (clinical drug ingredient) Drug/Non Drug [...] Polyneuropathy due to type 2 diabetes mellitus (553001077) Type 2 diabetes mellitus with diabetic polyneuropathy (E11.42) Active confirmed Problem Long-term current use of insulin (525690210) terminal clerk (current) use of insulin (Z79.4) Active confirmed Problem Peripheral vascular disease (187356450) PVD (peripheral vascular disease) (I73.9) Active confirmed Problem Peripheral venous insufficiency (50704578) Venous stasis dermatitis of both lower extremities (I87.2) Active confirmed Problem Ulcer of right lower extremity, limited to breakdown of skin (L97.911) Active confirmed Problem Ankle ulcer (607684358) Skin ulcer of right ankle with fat layer exposed (L97.312) Active confirmed Vital Signs Heart Rate 87 /min 10/27/2024 Temperature 96.6 degrees Fahrenheit 10/27/2024 Respiratory Rate 20 /min 10/27/2024 Height 6ft 4in in 10/27/2024 Weight 258.2 lbs 10/27/2024 BMI 31.43 kg/m2 10/27/2024 Encounters Encounter Location Date Provider Diagnosis [facility] [address] [address] 01/30/2024 NATMARVIN BROWN Type 2 diabetes mellitus with diabetic polyneuropathy E11.42 ; Dystrophic nail L60.3 ; Pain in left toe(s) M79.675 ; Pain in right toe(s) M79.674 ; Venous stasis dermatitis of both lower extremities I87.2 and Localized swelling of both lower legs R22.43 [facility] [address] [address] 04/05/2024 NATMARVIN BROWN Type 2 diabetes mellitus with diabetic polyneuropathy E11.42 ; Dystrophic nail L60.3 ; Pain in left toe(s) M79.675 ; Pain in right toe(s) M79.674 ; Venous stasis dermatitis of both lower extremities I87.2 and Localized swelling of both lower legs R22.43 [facility] [address] 06/18/2024 NAT BROWN Type 2 diabetes mellitus with diabetic polyneuropathy E11.42 ; Dystrophic nail L60.3 ; Pain in left toe(s) M79.675 ; Pain in right toe(s) M79.674 ; Venous stasis dermatitis of both lower extremities I87.2 and Localized swelling of both lower legs R22.43 [facility] [address] 08/20/2024 NAT BROWN Type 2 diabetes mellitus with diabetic polyneuropathy E11.42 ; Tinea pedis, right B35.3 ; Dystrophic nail L60.3 ; Pain in left toe(s) M79.675 ; Pain in right toe(s) M79.674 ; Venous stasis dermatitis of both lower extremities I87.2 and Localized swelling of both lower legs R22.43 [facility] [address] 10/27/2024 NAT BROWN Ulcer of right lower extremity, limited to breakdown of skin L97.911 ; Cellulitis of right leg L03.115 ; Type 2 diabetes mellitus with diabetic polyneuropathy E11.42 ; Dystrophic nail L60.3 ; Pain in right toe(s) M79.674 and Pain in left toe(s) M79.675 [facility] [address] 06/18/2024 NAT BROWN [facility] [address] 06/18/2024 NAT BROWN [facility] [address] 08/23/2024 NAT BROWN Assessments Encounter Date [...] PO BID x 10 days sent to [facility] pharmacy per the patient's request. [...] Aseptic debridement of toenails x 10 with bill cutter and curette, pt tolerated well. Discussed [...] Aseptic debridement of toenails x 10 with bill cutter and curette, pt tolerated well. Discussed [...] Aseptic debridement of toenails x 10 with bill cutter and curette, pt tolerated well. Discussed [...] Aseptic debridement of toenails x 10 with bill cutter and curette, pt tolerated well. Discussed [...] Aseptic debridement of toenails x 10 with bill cutter and curette, pt tolerated well. Discussed [...] disease. I will request the records from [facility] for his most recent studies. [...] Date Coverage End Date [employer] Medicare [id number] [address] [address] [place] [address] [id number] Molly dueñas Randy Self - patient is [...] Date(Month/Year) inguinal hernia repair cardiac stent - [facility] 11/2022 Hospitalization History Reason Date(Month/Year) Afib 02/2023 Afib, water retention 01/2023
--- OUTSIDE RECORDS SUMMARY | 2025-01-25 05:40 | XMS_ITS | Clinical Summary ---
Author Organization [address] [place] [address] [place] [phone] Phone Care Team Providers Care Cfo Name Role Phone Katie Gaytan MD Primary Care Provider [phone] Allergies Active Allergy Reactions Criticality Noted Date [...] 90 tablet 2 025 Active blood-glucose meter,continuous (IP Streetyle Pat 3 [place]) miscIndications: DM (diabetes mellitus), type 2 with [...] calf with varicose veins, unspecified ulcer stage ([facility] V24, [facility] V28),Venous stasis ulcer of right calf limited to breakdown of skin with varicose veins ([facility] V24, [facility] V28),Personal history of DVT (deep vein [...] current use of insulin, unspecified CKD stage ([facility] V24, [facility] V28) Change sensor every 15 days [...] (diabetes mellitus), type 2 with neurological complications ([facility] V24, [facility] V28) Use to check bs daily 1 each 025 Active blood sugar diagnostic (Contour Next Test Strips) test stripIndications :DM (diabetes mellitus), type 2 with neurological complications ([facility] V24, [facility] V28) Use to check bs 3 times a day 100 each 12 025 2025 Active lancets (Microlet Lancet) lancetsIndicatio ns:DM (diabetes mellitus), type 2 with neurological complications ([facility] V24, [facility] V28) Use to check bs 3 [...] vein thrombosis) 1 04/27/2023 Hypotension 05/16/2023 Sepsis ([facility] V24, [facility] V28) 05/16/2023 Urinary tract infection with hematuria Overview (02/02/2024): Urosepsis, please see note 04/30/23, obstructive uropathy likely from BPH, requiring prolonged Julio cath/bag. Following with urology Dr. 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 Embolism and thrombosis of a rteries of lower extremity ([facility] V24, [facility] V28) 03/18/2017 Umbilical hernia without obstruction and without gangrene 03/02/2015 Assessment & Plan (03/24/2024 1:07 PM EST): Other specified anemias 02/15/2015 DM ketoacidosis type II, unc ontrolled ([facility] V24, [facility] V28) 09/21/2014 Microalbuminuria 09/21/2014 Nuclear sclerosis [...] due t o type 2 diabetes mellitus ([facility] V24, [facility] V28) 05/29/2005 Overview (02/02/2024): Last Assessment [...] continue to follow with your specilaist at [facility], and get me the record. 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, followed by hematology IMO update Esophageal reflux 05/29/2005 Overview (02/02/2024): The patient underwent upper GI endoscopy 08.30.05 at [facility] for the evaluation of reflux and [...] Plan (03/24/2024 1:07 PM EST): Morbid obesity ([facility] V24, [facility] V28) 2005 Pure hypercholesterolemia 05/29/2005 Assessment [...] Type Department Care Team Description 01/21/2025 Telephone [facility] Cardiology [facility] [address] [place] [address] Sarah Lee NP 12/27/2024 Telephone Adult Medicine [place] - [address] [phone] Katie Gaytan MD 12/22/2024 Telephone [facility] Cardiology [facility] [address] [place] [address] Sarah Lee NP 12/13/2024 Anticoagulation - Warfarin Visit Coumadin [facility] - [address] [phone] Latasha Deleon LPN Personal history of DVT (deep vein thrombosis) (Primary Dx) 12/09/2024 10:00 AM EDT Ancillary Procedure [facility] Cardiology [facility] [address] [place] [address] PAD (peripheral artery disease) ([facility] V24); Ectasia of artery ([facility] V24) 12/07/2024 Telephone Vascular Surgery - [place] [address] [place] [address] Jose Kauffman MD 12/06/2024 Anticoagulation - Warfarin Visit Coumadin [address] [phone] Latasha Deleon LPN Personal history of DVT (deep vein thrombosis) (Primary Dx) 11/30/2024 Telephone Adult Medicine [address] [phone] Carmelita Henson RN 11/30/2024 Telephone [facility] [address] [facility] [address] [place] [address] Yovany Giles MD 11/30/2024 Telephone Adult [address] [phone] Katie Gaytan MD 11/29/2024 Anticoagulation - Warfarin Visit Coumadin [address] [phone] Shonna White LPN Personal history of DVT (deep vein thrombosis) (Primary Dx) 11/22/2024 Anticoagulation - Warfarin Visit Coumadin [address] [phone] Shonna White LPN Personal history of DVT (deep vein thrombosis) (Primary Dx) 11/16/2024 Telephone Endocrinology [address] [phone] Julia Oconnell PA 11/15/2024 Anticoagulation - Warfarin Visit [facility] [address] [phone] Shonna White LPN Personal history of DVT (deep vein thrombosis) (Primary Dx) 11/08/2024 Anticoagulation - Warfarin Visit Cou[facility]in Clinic [address] [phone] Latasha Deleon LPN Personal history of DVT (deep vein thrombosis) (Primary Dx) 11/01/2024 9:00 AM EDT Ancillary Procedure [facility] [address] [place] [address] Longstanding persistent atrial fibrillation ([facility]/HCC V24, CMS/HCC V28) 11/01/2024 Anticoagulation - Warfarin Visit Coumadin [address] [phone] Shonna White LPN Personal history of DVT (deep vein thrombosis) (Primary Dx) 10/29/2024 8:30 AM EDT Office Visit Adult Medicine [address] [phone] Katie Gaytan MD Cellulitis and abscess of leg (Primary Dx) 10/26/2024 Anticoagulation - Warfarin Visit Coumadin [address] [phone] Shonna White LPN Personal history of DVT [...] + Ba.1 (Non-US Trademark COMIRNATY Bivalent) 12/25/2021 [employer] SARS-CoV-2 COVID-19, mRNA, LNP-S, preservative free 01/20/2021 [...] (diabetes mellitus), type 2 with neurological complications ([facility] V24, [facility] V28) 09/01/2017 DX:DM (diabetes mellitus), t ype 2 with neurological complications ([facility]) Family History Medical History Relation Name [...] for your loved ones. For example, children's literature professor or elderly care for an older adult? [...] 9:20 AM EST Office Visit Endocrinology - [place] [address] [place] [address] Julia Oconnell PA [address] [place] [address] Health Maintenance Due Date Last Done Comments [...] 11:32 AM EDT PAD (peripheral artery disease) ([facility] V24) Ectasia of artery ([facility] V24) PROTHROMBIN TIME WITH INR 12/06/2024 [...] PSV 64 cm/s CV VAS LAB Left RADIO PERSONALITY prox sys PSV 70 cm/s CV VAS [...] PSV 51 cm/s CV VAS LAB Right RADIO PERSONALITY prox sys PSV 77 cm/s CV VAS [...] The mid peroneal artery has triphasic flow. Special Makeup Fx Artist Instructor Details A reid scale, color and doppler analysis ultrasound was performed. During the study longitudinal views were obtained. Pulsed wave doppler was performed. Talia ZIMMERMAN CV VASCULAR PROCEDURES Final Result * (ABNORMAL) B-type natriuretic peptide (12/02/2024 9:29 AM EDT) [facility] BNP 266(H) <=100 pcg/mL LAB CHEMISTRY METHOD 12/02/2024 11:50 AM EDT [facility] Blood Venous blood specimen / Unknown Venipuncture / Unknown 12/02/2024 9:29 AM EDT 12/02/2024 9:29 AM EDT Sarah Lee NP LAB BLOOD ORDERABLES Final Resu lt [facility] [address] [place] [address], [place] [phone] * (ABNORMAL) Basic metabolic panel (12/02/2024 9:29 AM EDT) [facility] Sodium 139 133 - 145 mmol/L LAB CHEMISTRY METHOD 12/02/2024 12:42 PM [facility] Potassium 4.2 3.5 - 5.5 mmol/L LAB CHEMISTRY METHOD 12/02/2024 12:42 PM [facility] Chloride 103 96 - 110 mmol/L LAB CHEMISTRY METHOD 12/02/2024 12:42 PM [facility] CO2 32 21 - 32 mmol/L LAB CHEMISTRY METHOD 12/02/2024 12:42 PM [facility] Anion Gap 4 3 - 11 LAB CHEMISTRY METHOD 12/02/2024 12:42 PM [facility] Glucose 216(H) 70 - 100 mg/dL LAB CHEMISTRY METHOD 12/02/2024 12:42 PM EDT [facility] BUN 17 5 - 25 mg/dL LAB CHEMISTRY METHOD 12/02/2024 12:42 PM EDT [facility] Creatinine 0.98 0.70 - 1.30 mg/dL LAB CHEMISTRY METHOD 12/02/2024 12:42 PM EDT [facility] eGFR 82 >=60 mL/min/1. 73m2 LAB CHEMISTRY METHOD 12/02/2024 12:42 PM EDT [facility] Comment:Calculation based on the Chronic Kidney Disease Epidemiology Collaboration (CKD-EPI) equation refit without adjustment for race. BUN/Creatinine Ratio 17.3 LAB CHEMISTRY METHOD 12/02/2024 12:42 PM EDT [facility] Calcium 8.6 8.5 - 10.5 mg/dL LAB CHEMISTRY METHOD 12/02/2024 12:42 PM EDT [facility] Blood Venous blood specimen / Unknown Venipuncture / Unknown 12/02/2024 9:29 AM EDT 12/02/2024 9:29 AM EDT Sarah Lee RETAIL INTERIOR DESIGNER LAB BLOOD ORDERABLES Final Resu lt [facility] [address] [place] [address], * (ABNORMAL) Hemoglobin A1c (12/02/2024 7:55 AM EDT) Hemoglobin A1C 6.8(H) <6.5 % LAB CHEMISTRY METHOD 12/02/2024 11:37 AM EDT [facility] Mean Bld Glu Estim. 148 mg/dL LAB CHEMISTRY METHOD 12/02/2024 11:37 AM EDT [facility] Blood Venous blood specimen / Unknown Venipuncture / Unknown 12/02/2024 7:55 AM EDT 12/02/2024 7:55 AM EDT Julia ZIMMERMAN LAB BLOOD ORDERABLES Final Resul t Performing Organization Address [facility]/ZIP Co de Phone Number [facility] [address] [place] [address], * (ABNORMAL) Digoxin level (12/02/2024 7:55 AM EDT) Digoxin Lvl 0.3(L) 0.5 - 2.0 ng/mL LAB CHEMISTRY METHOD 12/02/2024 11:16 AM EDT [facility] Blood Venous blood specimen / Unknown Venipuncture / Unknown 12/02/2024 7:55 AM EDT 12/02/2024 7:55 AM EDT Radha Hudson NP LAB BLOOD ORDERABLES Final Resu lt Performing Organization Address [facility] Co de Phone Number [facility] [address] [place] [address], * CARDIAC HOLTER MONITOR (REPORT GENERATED IN HOUSE) (11/01/2024 9:05 AM EDT) Anatomical Region Laterality Modality Cardiac Diagnost ic Narrative 11/03/2024 7:47 AM EDT [facility] DIAGNOSTIC TESTING DEPARTMENT [address] [place] [phone] TEL: FAX: Type of Test: 24 Hour Holter Monitor Date of Test: 11/01/2024 Ordering Provider: Radha Hudson NP Reason for Test: Longstanding persistent atrial fibrillation [employer] Online Communications Specialist Findings: 1: Atrial Fibrillation noted throughout recording. [...] of 74 bpm. Occasional PVCs. Radha Hudson RETAIL INTERIOR DESIGNER CV CARDIAC SERVICES PROCEDURES Final Result * (ABNORMAL) Lipid panel with reflex to direct LDL (08/25/2024 1:50 PM EDT) Cholesterol 99 0 - 200 mg/dL LAB CHEMISTRY METHOD 08/25/2024 6:50 PM EDT [facility] Triglycerides 134 0 - 150 mg/dL LAB CHEMISTRY METHOD 08/25/2024 6:50 PM EDT [facility] HDL 39(L) >=40 mg/dL LAB CHEMISTRY METHOD 08/25/2024 6:50 PM EDT [facility] LDL Calculated 33 0 - 100 mg/dL LAB CHEMISTRY METHOD 08/25/2024 6:50 PM EDT [facility] VLDL Cholesterol Aramis 26.8 mg/dL LAB CHEMISTRY METHOD 08/25/2024 6:50 PM EDT [facility] Non HDL Chol. (LDL+VLDL) 60 <145 mg/dL LAB CHEMISTRY METHOD 08/25/2024 6:50 PM EDT [facility] Chol/HDL Ratio 2.5 0.0 - 4.4 LAB CHEMISTRY METHOD 08/25/2024 6:50 PM EDT [facility] Blood Venous blood specimen / Unknown Venipuncture / Unknown 08/25/2024 1:50 PM EDT 08/25/2024 1:50 PM EDT Jose Armando Oakley RETAIL INTERIOR DESIGNER LAB BLOOD ORDERABLES Final R esult [facility] [address] [place] [address], * (ABNORMAL) Microalbumin creatinine urine ratio (08/25/2024 1:50 PM EDT) Creatinine, Urine 103.0 mg/dL LAB CHEMISTRY METHOD 08/25/2024 6:51 PM EDT [facility] Microalb, Ur 121.0(H) 0.0 - 29.0 mg/L LAB CHEMISTRY METHOD 08/25/2024 6:51 PM EDT [facility] Microalb/Crea t Ratio 117(H) <30 mg/g creat LAB CHEMISTRY METHOD 08/25/2024 6:51 PM EDT [facility] Urine Urine specimen obtained by clean catch procedure / Unknown Non-blood Collection / Unknown 08/25/2024 1:50 PM EDT 08/25/2024 1:50 PM EDT Jose Armando Oakley RETAIL INTERIOR DESIGNER LAB URINE ORDERABLES Final R esult [facility] [address] [place] [address], * Diabetes Foot Exam (11/28/2023) [facility] Diabetes: Annual Foot Exam Abstracted Historical Provider HEALTH MAINTENANCE Final Result * Colonoscopy (06/10/2018) [facility] Colonoscopy No interpreta tion,abstr acted Anatomical Region Laterality Modality Other Historical Provider HEALTH MAINTENANCE Final Result * Hepatitis C Screening (03/13/2013) [facility] Hepatitis C Screening Abstracted Historical Provider HEALTH MAINTENANCE Final Result from Last 3 Months or Most Recently Relevant to Health Maintenance Insurance [employer] MEDICARE Care Teams Cfo Relationship Specialty Start Date End Date Katie Gaytan MD [address] [place] [address] PCP - General 02/18/1999
--- OUTSIDE RECORDS SUMMARY | 2025-01-25 05:40 | XMS_ITS | Encounter Summary ---
Author Organization [facility] Address [address] [place] [address] Care Team Providers Care Plant Operator/Shift Supervisor Name Role Phone Katie Gaytan MD Primary Care Provider Reason for Visit * Reason Onset Date Comments No Show 01/21/2025 10.3.25 Encounter Details Date Type Department Care Team ([facility] st Contact Info) Description 01/21/2025 Telephone [facility] - [facility] [address] [facility] [address] [place] [address] Sarah Lee NP [address] [place] [address] [place] [address] Social History Tobacco Use Types [...] care for your loved ones. For example, teacher early childhood development or elderly care for an older adult? [...] 9:20 AM EST Office Visit Endocrinology - [place] [address] [place] [address] Julia Oconnell PA [address] [place] [address] documented as of this encounter Visit Diagnoses Not on filedocumented in this encounter Additional Health Concerns Assessment Noted Time PHQ-9 Depression Total Score: 0 03/22/20 10:44 AM EST A fall risk assessment has been complete d for the patient 03/20/2024 12:04 PM EST documented as of this encounter Care Teams Plant Operator/Shift Supervisor Relationship Specialty Start Date End Date Katie Gaytan MD [address] [place] [address] PCP - General 02/18/1999 documented as of this encounter
== END 2025-01-25 05:37 | disposition home or self-care (01) ==
LOC: HO.MMNH1L 05:36
PROVIDERS: Visit Provider Physician Assistant Medical
DX: N20.0 Calculus of kidney (principal); R31.0 Gross hematuria; R33.9 Retention of urine, unspecified; N40.0 Benign prostatic hyperplasia without lower urinary tract symptoms; I50.31 Acute diastolic (congestive) heart failure; J84.9 Interstitial pulmonary disease, unspecified; Z13.89 Encounter for screening for other disorder
CPT/HCPCS: 51798; 81003; 99212

== ENCOUNTER 2025-01-25 09:06 | Outpatient (AMB) | payer MEDICARE, SELFPAY ==
--- NOTE | 2025-01-25 09:07 | A.OFFVIS_ITS ---
Intake Visit Reasons: 6m/PSA/PVR Intake Note: Patient is present for 6M/PSA/PVR Urology Medication:TAMSULOSIN Antibiotic Allergy:NONE Blood Thinner:ASPIRIN,APIXABAN TODAY'S PVR:20ML'S Medicinal Chemist Required: No Allergies peanut (PEANUTS) Allergy (Intermediate, Verified 01/25/25 09:42) Hives wool (WOOL) Allergy (Unknown, Verified 01/25/25 09:42) UNK Medication List - Last Reconciled 01/25/25 by JUWAN Pearce ammonium lactate 12% 1 appl topical DAILY PRN apixaban (Eliquis) 5 mg PO BID 30 days aspirin (Adult Aspirin Regimen) 81 mg PO DAILY atorvastatin 40 mg PO BEDTIME diltiazem HCl 120 mg PO DAILY flash glucose scanning reader (BioVascularyle Pat 2 [place]) As directed flash glucose sensor (FreeStyle Pat 2 Sensor kit) As directed folic acid 1 mg PO DAILY@1200 furosemide 20 mg PO DAILY insulin lispro (Humalog U-100 Insulin) Vego 20 insulin pump; pt changes/injects Q36H, unsure how much he injects at this time. metformin ER 500 mg PO BID metoprolol tartrate 50 mg See Protocol PO BID 30 days silver sulfadiazine 1% 1 appl topical DAILY PRN sub-q insulin device, 20 unit (V-GO 20 device) tamsulosin 0.4 mg PO BEDTIME 90 days HPI Comments Details: Randy is a 74-year-old male patient of Dr. Gaytan was accompanied by his significant other at today's office visit. He has a PMH of diabetes, GERD, CAD s/p PCI with SELENE in 11/2022, atrial fibrillation, history of bilateral lower extremity DVT anticoagulated with Coumadin, chronic venous stasis dermatitis, and anasarca. He presents to the office today for a follow up of his urinary retention as well as new onset of gross hematuria. He reports earlier this week he was sent to the ER by Tracey Sutton as he had been experiencing gross hematuria. He reports he has been in rehab however does plan to go home within the next 1-2 weeks. In review of patient's chart it appears a CT of the abdomen and pelvis without contrast was ordered and performed. These results were reviewed with the patient and his today. 02/12 no bilateral renal calculi or hydronephrosis noted. No focal renal abnormality or ureteral dilatation noted. Small renal cysts noted. No acute process per radiology report. He is on anticoagulation we did discuss potential causes of gross hematuria as well as further interventions and risks and benefits of these interventions. He reports compliance with Flomax as prescribed and does feel this has been helpful in weak urinary stream and lower urinary tract symptoms he had been experiencing. A PSA was ordered during last office visit however this has yet to be performed as he has been in rehab we did discussed importance in doing so. In office urinalysis results reviewed with the patient today 2+ microscopic hematuria otherwise within normal limits. PVR 20 mL. Previous PSAs are as follows: PSA: 06/14 2.2, 02/11 1.7. Previous workup has also included a retroperitoneal ultrasound 08/12 noting bilateral kidneys with no hydronephrosis. Right kidney with punctate nonobstructing stones. There are 2 thinly septated cyst in the lower pole measuring 1.3 and 1.5 cm. No follow-up imaging is recommended. Left kidney 3 mm nonobstructing calculus in the lower pole. In office cystoscopy 06/14 noted enlarged anterior lobe otherwise NAD. Discussed importance of managing diabetes and correlation of uncontrolled diabetes on the bladder. I discussed reasons for blood in the urine may include but are not limited to kidney stones, cancer in the urinary tract, BPH, kidney stone disease or inflammatory conditions of the urinary tract. I have discussed workup to include cystoscopy evaluation. He otherwise offers no other issues or concerns at this time. [facility] Medical History Atelectasis of both lungs Chronic restrictive lung disease Atrial fibrillation Atrial fibrillation with RVR BPH (benign prostatic hyperplasia) Chronic venous stasis dermatitis GERD (gastroesophageal reflux disease) CAD (coronary artery disease) Type 2 diabetes mellitus (HFpEF) heart failure with preserved ejection fraction Surgical History Hx of colonoscopy Status post percutaneous transluminal angioplasty (PLASTIC EXTRUSION OPERATOR) with stent placement Family History Father Kidney cancer, primary, with metastasis from kidney to other site Heart disease Social History Household Members: Other Housing: House Are you a primary director of patient care to a significant other at home: No Do you presently have visiting nurse or other home services: Yes Alcohol intake: current Alcohol intake frequency: holidays/special occasions only Patient Tobacco Use Status: Never used Tobacco Second Hand Smoke Exposure: No Advance Directives Date on File: 02/13/23 service: No Review of Systems Const Reports as per [facility] Eyes Reports no additional complaints ENT Reports no additional complaints Card Reports as per HPI Resp Reports no additional complaints GI Reports as per HPI Reports as per [facility] Musc Reports as per [facility] Skin/Breast Reports as per HPI Neuro Reports no additional complaints Psych Reports no additional complaints Endo Reports as per [facility] Jordan/Lymph Reports as per HPI Aller/Immun Reports no additional complaints Physical Exam Const General: cooperative, comfortable, no acute distress, well developed, alert and awake Nutritional Appearance: overweight Orientation/consciousness: patient oriented x3 Limitations: wheelchair HEENT Head: Yes normal to inspection, Yes No palpable skull fracture present and Yes atraumatic Eyes General: appearance normal, both eyes and all related structures Neck Neck: Yes normal visual inspection Chest Chest palpation & inspection: normal inspection of the chest Resp Other: O2 dependent nasal cannula Effort & Inspection: normal respiratory effort and able to speak in complete sentences Cardio Rate: regular rate GI Inspection: Yes Abdominal panniculus present General: Yes no CVA tenderness Back/Spine/Pelvis Back: no CVA tenderness Skin Other: Bilateral lower extremities with anasarca with blebs and leaking lymphedma. Skin appears discolored and dry. Neuro General: patient oriented x3 Psych Other: unkempt in appearance Mental Status: mental status grossly normal Speech and movement: Normal speech and movement present and Clear speech present Affect: normal affect Attitude: cooperative Thought process: Normal thought process present Thought content: Normal thought content present Insight: Fair insight present (Psych) Judgement: Fair judgement present (Psych) Office Procedures Post Void Residual Post Residual Void Post Void Residual (PVR): 20 [id number] Void Residual by ultrasound Results AMB Urinalysis, Automated UA Leukoctes 15 Sindi/uL Last Edit by TEDDY Gaona on 01/25/25 09:38 UA Nitrite Negative Last Edit by TEDDY Gaona on 01/25/25 09:38 UA Urobilinogen 0.2 mg/dL Last Edit by TEDDY Gaona on 01/25/25 09:3 8 UA Protein 30 mg/dL Last Edit by TEDDY Gaona on 01/25/25 09:38 UA pH 6.0 Last Edit by TEDDY Gaona on 01/25/25 09:38 UA Blood 200 Koko/uL Last Edit by TEDDY Gaona on 01/25/25 09:38 UA Specific [place] 1.020 Last Edit by TEDDY Gaona on 01/25/25 09: 38 UA Ketone Negative Last Edit by TEDDY Gaona on 01/25/25 09:38 UA Bilirubin 0 mg/dL Last Edit by TEDDY Gaona on 01/25/25 09:38 UA Glucose 0 mg/dL Last Edit by TEDDY Gaona on 01/25/25 09:38 Results Reviewed Results Reviewed: Date of Service: 01/23/25 Procedure(s): CT abdomen pelvis wo IV con Findings: Bilateral lower lobe atelectasis. Small left pleural effusion noted. Cardiomegaly with coronary calcification. No acute bony abnormalities. Liver and spleen within normal limits. Pancreas and adrenal glands unremarkable. Gallbladder within normal limits. No bilateral renal stone or hydronephrosis. No focal renal abnormality or ureteral dilation. Small renal cysts noted. No evidence for aortic aneurysm. No free fluid or adenopathy in the pelvis. No diverticulitis. Appendix unremarkable. Enlarged heterogeneous prostate. Impression: No acute processes Assessment & Plan Assessment & Plan (1) Urinary retention: Code(s): R33.9 - Retention of urine, unspecified Category: Medical (2) Calculus of left kidney: Code(s): N20.0 - Calculus of kidney Category: Medical (3) Gross hematuria: Code(s): R31.0 - Gross hematuria Category: Medical Plan In office urinalysis results with the patient today; as noted above; will send for urine cytology. PVR [address] results reviewed with the patient and his today; as noted above Continue Flomax. We did discussed potential causes of gross hematuria as well as further interventions and risks and benefits of these interventions. All questions were answered. We discussed importance of obtaining PSA as planned. Follow-up next available in office cystoscopy with PSA to be completed prior. Follow-up per doctor's orders; or sooner with any issues, concerns, and or questions. Orders: Orders Urine Cytology Today R31.29 - Other microscopic hematuria AMB Urinalysis Automated Today Z13.9 - Encounter for screening, unspecified Patient Instructions: The patient had an opportunity to ask questions regarding the treatment plan. All questions were answered. Physical exam, labs, and imaging were discussed and reviewed in detail. As well as risks, benefits, and discussion of treatment choices. No major barriers to understanding were identified. The patient ex pressed understanding and agreement with the above treatment plan. The patient was made aware they should contact our office by phone for worsening of their current condition, the appearance of new symptoms, or with any questions or concerns. Compliance is encouraged with any medications and follow up testing that is ordered. It is a privilege to be allowed the opportunity to participate in? your urological care.? Again, if you have any questions or concerns If you have any questions or concerns please do not hesitate to contact me. The office is [phone]. This note is constructed using voice recognition software. While every effort has been made to ensure accuracy oyster tonger errors may have been included. Yours sincerely, JUWAN Pearce Coding Level of Care Code Est Pt Level 3 (47225) Complex EM visit Add On G2211 Diagnoses Urinary retention R33.9 Calculus of left kidney N20.0 Gross hematuria R31.0 CPT Codes Post Residual Void - PVR CPT Code: 78159-[id number] Void Residual by ultrasound ([id number])
== END 2025-01-25 09:43 | disposition home or self-care (01) ==
LOC: HO.HUSH 09:06
PROVIDERS: PCP Internal Medicine; Visit Provider Nurse Practitioner Family
DX: R33.9 Retention of urine, unspecified (principal); N20.0 Calculus of kidney; R31.0 Gross hematuria; Z13.9 Encounter for screening, unspecified
CPT/HCPCS: 99213; G2211

== ENCOUNTER 2025-01-25 09:30 | Outpatient (REF) | payer MEDICARE, SELFPAY ==
--- OUTSIDE RECORDS SUMMARY | 2025-01-25 10:44 | XMS_ITS | Encounter Summary ---
Author Organization [facility] Address [address] [place] [address] Care Team Providers Care School Occupational Therapist Name Role Phone aKtie Gaytan MD Primary Care Provider [phone] Yovany Giles MD Unavailable Nyla Grullon NP Unavailable Unavailable Encounter Details Date Type Department Care Team Description 05/29/2021 Dowel Maker Report Medical Records [address] [place] [address] Lizz Stark MD Social History Tobacco Use [...] on filedocumented in this encounter Care Teams School Occupational Therapist Relationship Specialty Start Date End Date Katie Gaytan MD [address] [place], [place] [phone] PCP - General 02/18/1999 Yovany Giles MD [address] [place] [address] [phone] Specialist Cardiology 08/12/22 Nyla Grullon NP [address] [place] [address] Cardiology 12/02/22 documented as of this encounter
--- OUTSIDE RECORDS SUMMARY | 2025-01-25 10:44 | XMS_ITS | Encounter Summary ---
Author Organization [facility] Address [address] [place] [address] Care Team Providers Care Manager Eligibility Name Role Phone Katie Gaytan MD Primary Care Provider [phone] Yovany Giles MD Unavailable Nyla Grullon NP Unavailable Unavailable Encounter Details Date Type Department Care Team Description 05/03/2022 Formstone Fitter Report Medical Records [address] [place] [address] Fern Tabares DPM Social History Tobacco Use [...] on filedocumented in this encounter Care Teams Manager Eligibility Relationship Specialty Start Date End Date Katie Gaytan MD [address] [place] [address] [phone] PCP - General 02/18/1999 Yovany Giles MD [address] [place] [address] [phone] Specialist Cardiology 08/12/22 Nyla Grullon NP [address] [place] [address] 18289 Cardiology 12/02/22 documented as of this encounter
--- OUTSIDE RECORDS SUMMARY | 2025-01-25 10:44 | XMS_ITS | Encounter Summary ---
Author Organization [facility] Address [address] [place] [address] Care Team Providers Care Aboriginal Education Worker Coordinator Name Role Phone Katie Gaytan MD Primary Care Provider [phone] Yovany Giles MD Unavailable Nyla Grullon NP Unavailable Unavailable Reason for Visit * Reason Onset Date Comments REFERRAL 05/29/2022 TEST RESULTS 05/29/2022 Labs 05/22/22 Encounter Details Date Type Department Care Team Description 05/29/2022 Pt. Non Urgent Medical Question Adult Medicine [address] [phone] Katie Gaytan MD [address] [place] [address] [phone] Social History Tobacco Use Types Packs/Day Years [...] 3:19 PM ESTFrom: Randy Tan To: Adalberto Gaytan Sent: 05/29/2022 3:06 PM EST Subject: Follow up to May 21 visit 1 - A few days ago, the rep of my [facility] doctor called me and said that they sent you a new official document about talking over my care. 2 - Because it is more than 3 years since my last exam in 2019, [facility] needs a new referral from my PCP to have a colonoscopy done. Their FAX number is . [facility] who said that she will pass this on to one of your nurses. PS - I had blood and urine tests done on May 22. documented in this encounter Plan of Treatment Not on file documented as of this encounter Visit Diagnoses Not on filedocumented in this encounter Care Teams Aboriginal Education Worker Coordinator Relationship Specialty Start Date End Date Katie Gaytan MD [address] [place] [phone] PCP - General 02/18/1999 Yovany Giles MD [address] [place] [address] 65983 Specialist Cardiology 08/12/22 Nyla Grullon NP [address] [place] [address] Cardiology 12/02/22 documented as of this encounter
--- OUTSIDE RECORDS SUMMARY | 2025-01-25 10:44 | XMS_ITS | Encounter Summary ---
Author Organization [facility] Address [address] [place] [address] Care Team Providers Care Director Of Enrollment Name Role Phone Katie Gaytan MD Primary Care Provider [phone] Yovany Giles MD Unavailable Nyla Grullon NP Unavailable Unavailable Reason for Visit * Reason Onset Date Comments Special Procedure 12/05/2021 Encounter Details Date Type Department Care Team Description 12/05/2021 Telephone Adult Medicine [address] [phone] Katie Gaytan MD [address] [place] [address] [phone] Special Procedure Social History Tobacco Use Types [...] suspected to have Coronavirus/COVID-19? No / Unsure 12/04/2021 8:22 AM EDT documented as of this encounter Miscellaneous Notes * Telephone Encounter - Bia Najera - 12/05/2021 4:02 PM EDT Called patient to schedule procedure and he stated that he only gets his colonoscopy done at [facility] so he will call there to schedule. Just FYI documented in this encounter Plan of Treatment Not on file documented as of this encounter Visit Diagnoses Not on filedocumented in this encounter Care Teams Director Of Enrollment Relationship Specialty Start Date End Date Katie Gaytan MD [address] [place] [address] PCP - General 02/18/1999 Yovany Giles MD [address] [place] [address] Specialist Cardiology 08/12/22 Nyla Grullon NP [address] [place] [address] Cardiology 12/02/22 documented as of this encounter
--- OUTSIDE RECORDS SUMMARY | 2025-01-25 10:44 | XMS_ITS | Encounter Summary ---
Author Organization [facility] Address [address] [place] [address] Care Team Providers Care Stitch Wheeler Name Role Phone Katie Gaytan MD Primary Care Provider [phone] Yovany Giles MD Unavailable Nyla Grullon NP Unavailable Unavailable Reason for Referral * EXTERNAL (Routine) - Authorized/Booked Specialty Diagnoses / Procedures Referred By Esther jefferson Referred To Contact Gastroenterology Procedures REFERRAL TO GASTROENTEROLOGY Katie Gaytan MD [address] [place] [address] External Gastro Referral ID Status Reason Start Date Expiration Date V isits Requested Visits Authorized [id number] Authorized/B ooked 05/29/2022 09/03/2022 1 1 Reason for Visit * Reason Onset Date Comments REFERRAL 05/29/2022 Encounter Details Date Type Department Care Team Description 05/29/2022 Telephone Adult Medicine [address] [address] Katie Gaytan MD [address] [place] [address] REFERRAL Social History Tobacco Use Types Packs/Day Years [...] encounter Miscellaneous Notes * Telephone Encounter - Ivory Patterson - 05/29/2022 3:01 PM EST Patient is requesting a referral for a colonoscopy as discussed with PCP on 05/21/22 OV. He would like to be referred to [facility] FAX # [phone] documented in this encounter Plan of Treatment Not on file documented as of this encounter Visit Diagnoses Not on filedocumented in this encounter Care Teams Stitch Wheeler Relationship Specialty Start Date End Date Katie Gaytan MD [address] [place] [address] PCP - General 02/18/1999 Yovany Giles MD [address] [place] [address] 34765 Specialist Cardiology 08/12/22 Nyla Grullon NP [address] [place] [address] Cardiology 12/02/22 documented as of this encounter
--- OUTSIDE RECORDS SUMMARY | 2025-01-25 10:45 | XMS_ITS | Encounter Summary ---
Author Organization [facility] Address [address] [place] [address] Care Team Providers Care Filter Press Operator Name Role Phone Katie Gaytan MD Primary Care Provider [phone] Yovany Giles MD Unavailable Nyla Grullon NP Unavailable Unavailable Encounter Details Date Type Department Care Team Description 11/26/2017 Communications Billing Analyst Report Medical Records [address] [place] [address] Lesley Medeiros Social History Tobacco Use Types [...] on filedocumented in this encounter Care Teams Filter Press Operator Relationship Specialty Start Date End Date Katie Gaytan MD [address] [place] [address] [phone] PCP - General 02/18/1999 Yovany Giles MD [address] [place] [address] [phone] Specialist Cardiology 08/12/22 Nyla Grullon NP [address] [place] [address] Cardiology 12/02/22 documented as of this encounter
--- OUTSIDE RECORDS SUMMARY | 2025-01-25 10:45 | XMS_ITS | Encounter Summary ---
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
--- OUTSIDE RECORDS SUMMARY | 2025-01-25 10:45 | XMS_ITS | Encounter Summary ---
Author Organization [facility] Address [address] [place] [address] Care Team Providers Care Crnp Name Role Phone Katie Gaytan MD Primary Care Provider [phone] Yovany Giles MD Unavailable Nyla Grullon NP Unavailable Unavailable Encounter Details Date Type Department Care Team Description 10/09/2018 Orders Only Adult Medicine [address] [phone] Katie Gaytan MD [address] [place] [address] [phone] Social History Tobacco Use Types Packs/Day Years [...] on filedocumented in this encounter Care Teams Crnp Relationship Specialty Start Date End Date Katie Gaytan MD [address] [place] [address] [phone] PCP - General 02/18/1999 Yovany Giles MD [address] [place] [address] [phone] Specialist Cardiology 08/12/22 Nyla Grullon NP [address] [place] [address]898 Cardiology 12/02/22 documented as of this encounter
--- OUTSIDE RECORDS SUMMARY | 2025-01-25 10:45 | XMS_ITS | Encounter Summary ---
Author Organization [facility] Address [address] [place] [address] Care Team Providers Care Can Piler Name Role Phone Katie Gaytan MD Primary Care Provider [phone] Yovany Giles MD Unavailable Nyla Grullon NP Unavailable Unavailable Encounter Details Date Type Department Care Team Description 11/07/2022 Telephone Cardio PVC POC 154 [address] [facility] [address] [place] [address] Fern Veliz, TAMAR [address] [place] [address] Social History Tobacco Use Types [...] on filedocumented in this encounter Care Teams Can Piler Relationship Specialty Start Date End Date Katie Gaytan MD [address] [place] [address] PCP - General 02/18/1999 Yovany Giles MD [address] [place] [address] 9[address]60 Specialist Cardiology 08/12/22 Nyla Grullon NP [address] [place] [address] Cardiology 12/02/22 documented as of this encounter
--- OUTSIDE RECORDS SUMMARY | 2025-01-25 10:45 | XMS_ITS | Encounter Summary ---
Author Organization [facility] Address [address] [place] [address] Care Team Providers Care Watch Repair Person Name Role Phone Katie Gaytan MD Primary Care Provider [phone] Yovany Giles MD Unavailable Nyla Grullon NP Unavailable Unavailable Reason for Visit * Reason Onset Date Comments refill request 04/30/2023 Encounter Details Date Type Department Care Team Description 04/30/2023 Telephone Cardio PVC POC 154 300 [facility] [address] [place] [address] Yovany Giles MD [address] [place] [address] [phone] refill request Social History Tobacco Use Types [...] However, when pt was recently seen at [facility] 03/24/23, he was restarted on digoxin 250 [...] on filedocumented in this encounter Care Teams Watch Repair Person Relationship Specialty Start Date End Date Katie Gaytan MD [address] [place] [address]57 PCP - General 02/18/1999 Yovany Giles MD [address] [place] [address] 8[address]16 Specialist Cardiology 08/12/22 Nyla Grullon NP [address] [place] [address] Cardiology 12/02/22 documented as of this encounter
--- OUTSIDE RECORDS SUMMARY | 2025-01-25 10:45 | XMS_ITS | Encounter Summary ---
Author Organization [facility] Address [address] [place] [address] Care Team Providers Care Transfer Engineer Name Role Phone Katie Gaytan MD Primary Care Provider [phone] Yovany Giles MD Unavailable Nyla Grullon SENIOR TAX ACCOUNTANT Unavailable Unavailable Encounter Details Date Type Department Care Team Description 11/26/2022 Orders Only Cardio PVC POC [address] [place] [address] Yovany Giles MD [address] [place] [address] Social History Tobacco Use Types Packs/Day [...] on filedocumented in this encounter Care Teams Transfer Engineer Relationship Specialty Start Date End Date Katie Gaytan MD [address] [place] [address] [phone] PCP - General 02/18/1999 Yovany Giles MD [address] [place] [address]3743 Specialist Cardiology 08/12/22 Nyla Grullon NP [address] [place] [address] Cardiology 12/02/22 documented as of this encounter
--- OUTSIDE RECORDS SUMMARY | 2025-01-25 10:45 | XMS_ITS | Encounter Summary ---
Author Organization [facility] Address [address] [place] [address] Care Team Providers Care Call Specialist Name Role Phone Katie Gaytan MD Primary Care Provider [phone] Yovany Giles MD Unavailable Nyla Grullon NP Unavailable Unavailable Reason for Visit * Reason Comments E-prescribe Rx Request Encounter Details Date Type Department Care Team Description 10/12/2018 Refill Adult Medicine [address] [phone] Katie Gaytan MD [address] [place] [address] [phone] E-prescribe Rx Request Social History Tobacco Use [...] Telephone Encounter - Raine Sloan M.A. - 10/12/2018 4:29 PM EDT Lab Results Component Value Date INR 2.6 10/04/2018 * Telephone Encounter - Olivia Owens - 10/12/2018 3:12 PM EDT Patient would like script to be: E-PRESCRIBED/FAXED TO PHARMACY WHEN WAS THE PATIENT'S LAST APPOINTMENT IN ADULT MEDICINE? 10-05-18 WHEN WAS THE LAST TIME THE PATIENT SAW THEIR PCP? 08-10-18 Does patient have an upcoming appointment? Yes 03-12-19 (THE MEDICATION REQUESTED IS ON THE MED [...] N/A Patients current insurance carrier is: Payor: [facility] / Plan: AARP MEDICARE COMPLETE $15/$45 [facility] [id number] / Product Type: PPO [id number] documented in this encounter Plan of Treatment Not on file documented as of this encounter Visit Diagnoses Not on filedocumented in this encounter Care Teams Call Specialist Relationship Specialty Start Date End Date Katie Gaytan MD [address] [place] [address] 92876 PCP - General 02/18/1999 Yovany Giles MD [address] [place] [address] 45723 Specialist Cardiology 08/12/22 Nyla Grullon NP [address] [place] [address] Cardiology 12/02/22 documented as of this encounter
--- OUTSIDE RECORDS SUMMARY | 2025-01-25 10:45 | XMS_ITS | Encounter Summary ---
Author Organization [facility] Address [address] [place] [address] Care Team Providers Care Area Attendant Name Role Phone Katie Gaytan MD Primary Care Provider [phone] Yovany Giles MD Unavailable Nyla Grullon NP Unavailable Unavailable Encounter Details Date Type Department Care Team Description 01/31/2023 Orders Only Medical Records [address] [place] [address] Fern Tabares DPM Social History Tobacco Use [...] Associated Diagnosis Comments OUTSIDE FOOT EXAM Routine 01/17/2023 documented in this encounter Results * OUTSIDE FOOT EXAM (01/17/2023) Fern Tabares DPM PERFORMABLES documented in this encounter Visit Diagnoses Not on filedocumented in this encounter Care Teams Area Attendant Relationship Specialty Start Date End Date Katie Gaytan MD [address] [place] [address] 9[address]66 PCP - General 02/18/1999 Yovany Giles MD [address] [place] [address] Specialist Cardiology 08/12/22 Nyla Grullon NP [address] [place] [address] Cardiology 12/02/22 documented as of this encounter
--- OUTSIDE RECORDS SUMMARY | 2025-01-25 10:45 | XMS_ITS | Encounter Summary ---
Author Organization [facility] Address [address] [place] [address] Care Team Providers Care Plating Inspector Name Role Phone Katie Gaytan MD Primary Care Provider [phone] Yovany Giles MD Unavailable Nyla Grullon NP Unavailable Unavailable Reason for Visit * Reason Onset Date Comments Faxed Refill 10/28/2017 Encounter Details Date Type Department Care Team Description 10/28/2017 Refill Adult Medicine [address] [phone] Katie Gaytan MD [address] [place] [address] [phone] Faxed Refill Social History Tobacco Use Types [...] N/A Patients current insurance carrier is: Payor: [facility] / Plan: [facility] MEDICARE COMPLETE $20/$45 [facility] / Product Type: PPO [id number] documented in this encounter Plan of Treatment Not on file documented as of this encounter Visit Diagnoses Not on filedocumented in this encounter Care Teams Plating Inspector Relationship Specialty Start Date End Date Katie Gaytan MD [address] [place], [place] [phone] PCP - General 02/18/1999 Yovany Giles MD [address] [place] [address]30 Specialist Cardiology 08/12/22 Nyla Grullon NP [address] [place] [address] Cardiology 12/02/22 documented as of this encounter
--- OUTSIDE RECORDS SUMMARY | 2025-01-25 10:45 | XMS_ITS | Encounter Summary ---
Author Organization [facility] Address [address] [place] [address] Care Team Providers Care Computer Education Professor Name Role Phone Katie Gaytan MD Primary Care Provider [phone] Yovany Giles MD Unavailable Nyla Grullon NP Unavailable Unavailable Reason for Visit * Reason Onset Date Comments Medical Records 02/24/2023 Encounter Details Date Type Department Care Team Description 02/24/2023 Telephone Cardio PVC POC [address] [facility] [address] [place] [address] Yovany Giles MD [address] [place] [address] [phone] Medical Records Social History Tobacco Use Types [...] Randy went back to the ER at [facility] on 02/18/23. Can ypu please get his records prior to his 02/26/23 hospital follow up appointment with Nyla Grullon? Thanks. documented in this encounter Plan of Treatment Not on file documented as of this encounter Visit Diagnoses Not on filedocumented in this encounter Care Teams Computer Education Professor Relationship Specialty Start Date End Date Katie Gaytan MD [address] [place] [address] 22998 PCP - General 02/18/1999 Yovany Giles MD [address] [place] [address]66 Specialist Cardiology 08/12/22 Nyla Grullon NP [address] [place] [address] Cardiology 12/02/22 documented as of this encounter
--- OUTSIDE RECORDS SUMMARY | 2025-01-25 10:45 | XMS_ITS | Encounter Summary ---
Author Organization [facility] Address [address] [place] [address] Care Team Providers Care Actuarial Manager Name Role Phone Katie Gaytan MD Primary Care Provider [phone] Yovany Giles MD Unavailable Nyla Grullon NP Unavailable Unavailable Reason for Visit * Reason Comments E-prescribe Rx Request Encounter Details Date Type Department Care Team Description 12/16/2023 Refill Endocrinology - [address] [phone] Julia Oconnell PA-C [address] [place] [address] [phone] E-prescribe Rx Request Social History Tobacco Use [...] encounter Miscellaneous Notes * Telephone Encounter - Crystal Shen M.A. - 12/16/2023 8:33 AM EDT Jenna 11/14/23 Nov 03/16/24 Lrf 12/16/22 Lab Results Component Value Date HGBA1C 7.3 11/11/2023 MALBUR 102.0 08/12/2023 MALBCR 65.8 08/12/2023 CHOL 94 05/20/2023 LDL 43 05/20/2023 HDL 40 05/20/2023 TRIG 59 05/20/2023 GLU 105 11/11/2023 CREAT 1.00 11/11/2023 Please review, thanks * Telephone Encounter - Ivory Yesenia - 12/16/2023 6:41 AM EDT Patient would like script to be: E-PRESCRIBED/FAXED TO PHARMACY WHEN WAS THE PATIENT'S LAST APPOINTMENT IN ADULT MEDICINE? 11/11/23 WHEN WAS THE LAST TIME THE PATIENT SAW THEIR PCP? 06/10/23 Does patient have an upcoming appointment? Yes 03/24/24 (THE MEDICATION REQUESTED IS ON THE MED [...] N/A Patients current insurance carrier is: Payor: [facility] / Plan: PPO $0 [id number] / Product Type: PPO [id number] documented in this encounter Plan of Treatment Not on file documented as of this encounter Visit Diagnoses Not on filedocumented in this encounter Care Teams Actuarial Manager Relationship Specialty Start Date End Date Katie Gaytan MD [address] [place] [address] PCP - General 02/18/1999 Yovany Giles MD [address] [place] [address] Specialist Cardiology 08/12/22 Nyla Grullon NP [address] [place] [address] Cardiology 12/02/22 documented as of this encounter
--- OUTSIDE RECORDS SUMMARY | 2025-01-25 10:45 | XMS_ITS | Encounter Summary ---
Author Organization [facility] Address [address] [place] [address] Care Team Providers Care Tunnel Heading Supervisor Name Role Phone Katie Gaytan MD Primary Care Provider [phone] Yovany Giles MD Unavailable Nyla Grullon NP Unavailable Unavailable Encounter Details Date Type Department Care Team Description 12/10/2011 Miller First Report Medical Records [address] [place] [address] An Aranda MD Social History Tobacco Use [...] on filedocumented in this encounter Care Teams Tunnel Heading Supervisor Relationship Specialty Start Date End Date Katie Gaytan MD [address] [place] [address] [phone] PCP - General 02/18/1999 Yovany Giles MD [address] [place] [address] [phone] Specialist Cardiology 08/12/22 Nyla Grullon NP [address] [place] [address] Cardiology 12/02/22 documented as of this encounter
--- OUTSIDE RECORDS SUMMARY | 2025-01-25 10:45 | XMS_ITS | Encounter Summary ---
Author Organization [facility] Address [address] [place] [address] Care Team Providers Care Quality Control Associate Name Role Phone Katie Gaytan MD Primary Care Provider [phone] Yovany Giles MD Unavailable Nyla Grullon NP Unavailable Unavailable Encounter Details Date Type Department Care Team Description 09/04/2021 Claim Professional Report Medical Records [address] [place] [address] Lizz Stark MD Social History Tobacco Use [...] on filedocumented in this encounter Care Teams Quality Control Associate Relationship Specialty Start Date End Date Katie Gaytan MD [address] [place] [address] [phone] PCP - General 02/18/1999 Yovany Giles MD [address] [place] [address] Specialist Cardiology 08/12/22 Nyla Grullon NP [address] [place] [address] Cardiology 12/02/22 documented as of this encounter
--- OUTSIDE RECORDS SUMMARY | 2025-01-25 10:45 | XMS_ITS | Encounter Summary ---
Author Organization [facility] Address [address] [place] [address] Care Team Providers Care Dresser Tender Name Role Phone Katie Gaytan MD Primary Care Provider Yovany Giles MD Unavailable Nyla Grullon NP Unavailable Unavailable Reason for Visit * Reason Comments E-prescribe Rx Request Encounter Details Date Type Department Care Team Description 06/03/2019 Refill Adult Medicine [address] [phone] Katie Gaytan MD [address] [place] [address] [phone] E-prescribe Rx Request Social History Tobacco Use [...] N/A Patients current insurance carrier is: Payor: [facility] / Plan: [facility] MEDIC[facility] COMPLETE $15/$45 [facility] [id number] / Product Type: PPO [id number] documented in this encounter Plan of Treatment Not on file documented as of this encounter Visit Diagnoses Not on filedocumented in this encounter Care Teams Dresser Tender Relationship Specialty Start Date End Date Katie Gaytan MD [address] [place], [place] [phone] PCP - General 02/18/1999 Yovany Giles MD [address] [place] [address] Specialist Cardiology 08/12/22 Nyla Grullon NP [address] [place], [place] [phone] Cardiology 12/02/22 documented as of this encounter
--- OUTSIDE RECORDS SUMMARY | 2025-01-25 10:45 | XMS_ITS | Encounter Summary ---
Author Organization [facility] Address [address] [place] [address] Care Team Providers Care Garage Helper Name Role Phone Katie Gaytan MD Primary Care Provider [phone] Yovany Giles MD Unavailable Nyla Grullon NP Unavailable Unavailable Reason for Visit * Reason Onset Date Comments Client Customer Manager Feedback 12/02/2017 Podiatry Encounter Details Date Type Department Care Team Description 12/02/2017 Telephone Podiatry - [address] [address] Fern Tabares DPM Client Customer Manager Feedback (Podiatry) Social History Tobacco Use [...] EDT No insurance referral required per patient's insurance.([facility]) This plan does not require referrals. [...] needs to start: n/a Katie Gaytan Payor: [facility] / Plan: [facility] MEDICARE COMPLETE $20/$45 [facility] / Product Type: PPO [id number] documented in this encounter Plan of Treatment Not on file documented as of this encounter Visit Diagnoses Not on filedocumented in this encounter Care Teams Garage Helper Relationship Specialty Start Date End Date Katie Gaytan MD [address] [place] [address] PCP - General 02/18/1999 Yovany Giles MD [address] [place] [address] Specialist Cardiology 08/12/22 Nyla Grullon NP [address] [place] [address] Cardiology 12/02/22 documented as of this encounter
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
--- OUTSIDE RECORDS SUMMARY | 2025-01-25 10:45 | XMS_ITS | Encounter Summary ---
Author Organization [facility] Address [address] [place] [address] Care Team Providers Care Restaurant Hostess Name Role Phone Katie Gaytan MD Primary Care Provider Yovany Giles MD Unavailable Nyla Grullon CAFE HELPER Unavailable Unavailable Encounter Details Date Type Department Care Team Description 02/12/2023 Hospital Medical Records [address] [place] [address] [address] [place] [address] Social History Tobacco Use Types Packs/Day Years [...] on filedocumented in this encounter Care Teams Restaurant Hostess Relationship Specialty Start Date End Date Katie Gaytan MD [address] [place] [address] [phone] PCP - General 02/18/1999 Yovany Giles MD [address] [place] [address]55 Specialist Cardiology 08/12/22 Nyla Grullon NP [address] [place] [address] Cardiology 12/02/22 documented as of this encounter
--- OUTSIDE RECORDS SUMMARY | 2025-01-25 10:45 | XMS_ITS | Encounter Summary ---
Author Organization [facility] Address [address] [place] [address] Care Team Providers Care Straw Hat Brusher Name Role Phone Katie Gaytan MD Primary Care Provider [phone] Yovany Giles MD Unavailable Nyla Grullon NP Unavailable Unavailable Encounter Details Date Type Department Care Team Description 07/30/2023 Orders Only Medical Records [address] [place] [address] Fern Tabares DPM Social History Tobacco Use [...] on filedocumented in this encounter Care Teams Straw Hat Brusher Relationship Specialty Start Date End Date Katie Gaytan MD [address] [place] [address]20 PCP - General 02/18/1999 Yovany Giles MD [address] [place] [address]20 Specialist Cardiology 08/12/22 Nyla Grullon, TAMAR [address] [place] [address] Cardiology 12/02/22 documented as of this encounter
--- OUTSIDE RECORDS SUMMARY | 2025-01-25 10:45 | XMS_ITS | Encounter Summary ---
Author Organization [facility] Address [address] [place] [address] Care Team Providers Care Profile Trimmer Name Role Phone Katie Gaytan MD Primary Care Provider [phone] Yovany Giles MD Unavailable Nyla Grullon NP Unavailable Unavailable Encounter Details Date Type Department Care Team Description 01/05/2019 Roll Edge Machine Operator Report Medical Records [address] [place] [address] Lizz Stark MD Social History Tobacco Use [...] on filedocumented in this encounter Care Teams Profile Trimmer Relationship Specialty Start Date End Date Katie Gaytan MD [address] [place] [address] [phone] PCP - General 02/18/1999 Yovany Giles MD [address] [place], [place] [phone] Specialist Cardiology 08/12/22 Nyla Grullon NP [address] [place] [address] Cardiology 12/02/22 documented as of this encounter
--- OUTSIDE RECORDS SUMMARY | 2025-01-25 10:45 | XMS_ITS | Encounter Summary ---
Author Organization [facility] Address [address] [place] [address] Care Team Providers Care Supervisor Scenic Arts Name Role Phone Katie Gaytan MD Primary Care Provider [phone] Yovany Giles MD Unavailable Nyla Grullon NP Unavailable Unavailable Encounter Details Date Type Department Care Team Description 09/04/2022 Sanforizer Report Medical Records [address] [place] [address] Abstract, Provider Social History Tobacco Use Types [...] filedocumented in this encounter Care Teams Supervisor Scenic Arts Relationship Specialty Start Date End Date Katie Gaytan MD [address] [place] [address] [phone] PCP - General 02/18/1999 Yovany Giles MD [address] [place] [address] [phone] Specialist Cardiology 08/12/22 Nyla Grullon NP [address] [place] [address] 27970 Cardiology 12/02/22 documented as of this encounter
--- OUTSIDE RECORDS SUMMARY | 2025-01-25 10:45 | XMS_ITS | Encounter Summary ---
Author Organization [facility] Address [address] [place] [address] Care Team Providers Care Supervisor Production Department Name Role Phone Katie Gaytan MD Primary Care Provider [phone] Yovany Giles MD Unavailable Nyla Grullon NP Unavailable Unavailable Encounter Details Date Type Department Care Team Description 02/20/2023 Orders Only Cardio PVC POC [address] [facility] [address] [place] [address] Default, Provider Social History Tobacco Use Types [...] filedocumented in this encounter Care Teams Supervisor Production Department Relationship Specialty Start Date End Date Katie Gaytan MD [address] [place] [address] PCP - General 02/18/1999 Yovany Giles MD [address] [place] [address] Specialist Cardiology 08/12/22 Nyla Grullon NP [address] [place] [address] Cardiology 12/02/22 documented as of this encounter
--- OUTSIDE RECORDS SUMMARY | 2025-01-25 10:45 | XMS_ITS | Encounter Summary ---
Author Organization [facility] Address [address] [place] [address] Care Team Providers Care Document Photographer Name Role Phone Katie Gaytan MD Primary Care Provider [phone] Yovany Giles MD Unavailable Nyla Grullon NP Unavailable Unavailable Encounter Details Date Type Department Care Team Description 03/21/2023 Food Safety Manager Report Medical Records [address] [place] [address] Kiesha Verdugo, PAYMENT SPECIALIST- Social History Tobacco Use Types Packs/Day Years [...] on filedocumented in this encounter Care Teams Document Photographer Relationship Specialty Start Date End Date Katie Gaytan MD [address] [place] [address] PCP - General 02/18/1999 Yovany Giles MD [address] [place] [address]20 Specialist Cardiology 08/12/22 Nyla Grullon NP [address] [place] [address] Cardiology 12/02/22 documented as of this encounter
--- OUTSIDE RECORDS SUMMARY | 2025-01-25 10:45 | XMS_ITS | Encounter Summary ---
Author Organization [facility] Address [address] [place] [address] Care Team Providers Care Radio Adjuster Name Role Phone Katie Gaytan MD Primary Care Provider [phone] Yovany Giles MD Unavailable Nyla Grullon NP Unavailable Unavailable Reason for Visit * Reason Onset Date Comments Special Procedure 12/24/2018 Encounter Details Date Type Department Care Team Description 12/24/2018 Telephone Gastroenterology - [address] [place] [phone] Katie Gaytan MD [address] [place] [address] [phone] Special Procedure Social History Tobacco Use Types [...] it done a few months ago at [facility]. He will be calling you to obtain those notes so they can be added to his chart, thank you documented in this encounter Plan of Treatment Not on file documented as of this encounter Visit Diagnoses Not on filedocumented in this encounter Care Teams Radio Adjuster Relationship Specialty Start Date End Date Katie Gaytan MD [address] [place] [address] PCP - General 02/18/1999 Yovany Giles MD [address] [place] [address]19 Specialist Cardiology 08/12/22 Nyla Grullon NP [address] [place] [address] Cardiology 12/02/22 documented as of this encounter
--- OUTSIDE RECORDS SUMMARY | 2025-01-25 10:45 | XMS_ITS | Encounter Summary ---
Author Organization [facility] Address [address] [place] [address] Care Team Providers Care Logistics Planner Name Role Phone Katie Gaytan MD Primary Care Provider [phone] Yovany Giles MD Unavailable Nyla Grullon NP Unavailable Unavailable Reason for Visit * Reason Comments E-prescribe Rx Request Encounter Details Date Type Department Care Team Description 09/27/2023 Refill Adult Medicine [address] [phone] Katie Gaytan MD [address] [place] [address] [phone] E-prescribe Rx Request Social History Tobacco Use [...] uncontrolled documented in this encounter Care Teams Logistics Planner Relationship Specialty Start Date End Date Katie Gaytan MD [address] [place] [address] PCP - General 02/18/1999 Yovany Giles MD [address] [place] [address] Specialist Cardiology 08/12/22 Nyla Grullon NP [address] [place] [address] Cardiology 12/02/22 documented as of this encounter
--- OUTSIDE RECORDS SUMMARY | 2025-01-25 10:45 | XMS_ITS | Encounter Summary ---
Author Organization [facility] Address [address] [place] [address] Care Team Providers Care Marketing Programs Manager Name Role Phone Katie Gaytan MD Primary Care Provider [phone] Yovany Giles MD Unavailable Nyla Grullon BOOM SUPERVISOR Unavailable Unavailable Reason for Visit * Reason Onset Date Comments refill request 06/16/2018 Encounter Details Date Type Department Care Team Description 06/16/2018 Refill Adult Medicine [address] [phone] Katie Gaytan MD [address] [place] [address] [phone] refill request Social History Tobacco Use Types [...] Miscellaneous Notes * Telephone Encounter - Olivia Roman - 06/16/2018 4:26 PM EST Patient would [...] N/A Patients current insurance carrier is: Payor: [facility] / Plan: AARP MEDICARE COMPLETE $15/$45 [facility] [id number] / Product Type: PPO [id number] documented in this encounter Plan of Treatment Not on file documented as of this encounter Visit Diagnoses Not on filedocumented in this encounter Care Teams Marketing Programs Manager Relationship Specialty Start Date End Date Katie Gaytan MD [address] [place] [address] PCP - General 02/18/1999 Yovany Giles MD [address] [place] [address] Specialist Cardiology 08/12/22 Nyla Grullon NP [address] [place] [address] Cardiology 12/02/22 documented as of this encounter
--- OUTSIDE RECORDS SUMMARY | 2025-01-25 10:45 | XMS_ITS | Encounter Summary ---
Author Organization [facility] Address [address] [place] [address] Care Team Providers Care Production Control Supervisor Name Role Phone Katie Gaytan MD Primary Care Provider [phone] Yovany Giles MD Unavailable Nyla Grullon NP Unavailable Unavailable Encounter Details Date Type Department Care Team Description 04/02/2023 Hospital Medical Records [address] [place] [address] 76868 Melanie Bonds Social History Tobacco Use Types [...] on filedocumented in this encounter Care Teams Production Control Supervisor Relationship Specialty Start Date End Date Katie Gaytan MD [address] [place] [address] [phone] PCP - General 02/18/1999 Yovany Giles MD [address] [place] [address] [phone] Specialist Cardiology 08/12/22 Nyla Grullon NP [address] [place] [address], [place] [address] Cardiology 12/02/22 documented as of this encounter
--- OUTSIDE RECORDS SUMMARY | 2025-01-25 10:45 | XMS_ITS | Encounter Summary ---
Author Organization [facility] Address [address] [place] [address] Care Team Providers Care Clothing Patternmaker Name Role Phone Katie Gaytan MD Primary Care Provider [phone] Yovany Giles MD Unavailable Nyla Grullon NP Unavailable Unavailable Encounter Details Date Type Department Care Team Description 11/01/2023 CGM Report Medical Records [address] [place] [address] 87561 Abstract, Provider Social History Tobacco Use Types [...] on filedocumented in this encounter Care Teams Clothing Patternmaker Relationship Specialty Start Date End Date Katie Gaytan MD [address] [place] [address] [phone] PCP - General 02/18/1999 Yovany Giles MD [address] [place] [address] [phone] Specialist Cardiology 08/12/22 Nyla Grullon NP [address] [place] [address] 79439 Cardiology 12/02/22 documented as of this encounter
--- OUTSIDE RECORDS SUMMARY | 2025-01-25 10:45 | XMS_ITS | Encounter Summary ---
Author Organization [facility] Address [address] [place] [address] Care Team Providers Care Wood Shingle Roofer Name Role Phone Katie Gaytan MD Primary Care Provider [phone] Yovany Giles MD Unavailable Nyla Grullon NP Unavailable Unavailable Encounter Details Date Type Department Care Team Description 11/28/2022 Orders Only Medical Records [address] [place] [address] 58368 Abstract, Provider Social History Tobacco Use Types [...] Associated Diagnosis Comments OUTSIDE FOOT EXAM Routine 11/15/2022 documented in this encounter Results * OUTSIDE FOOT EXAM (11/15/2022) Provider Abstract PERFORMABLES documented in this encounter Visit Diagnoses Not on filedocumented in this encounter Care Teams Wood Shingle Roofer Relationship Specialty Start Date End Date Katie Gaytan MD [address] [place] [address] 01020 PCP - General 02/18/1999 Yovany Giles MD [address] [place] [address] 98194 Specialist Cardiology 08/12/22 Nyla Grullon NP [address] [place] [address] 19902 Cardiology 12/02/22 documented as of this encounter
--- OUTSIDE RECORDS SUMMARY | 2025-01-25 10:45 | XMS_ITS | Encounter Summary ---
Author Organization [facility] Address [address] [place] [address] Care Team Providers Care Water Quality Analyst Name Role Phone Katie Gaytan MD Primary Care Provider [phone] Yovany Giles MD Unavailable Nyla Grullon NP Unavailable Unavailable Reason for Visit * Reason Comments E-prescribe Rx Request Encounter Details Date Type Department Care Team Description 10/25/2023 Refill Endocrinology - [address] [phone] Julia Oconnell PA-C [address] [place] [address] [phone] E-prescribe Rx Request Social History Tobacco Use [...] encounter Miscellaneous Notes * Telephone Encounter - Minoo Fall M.A. - 10/27/2023 9:50 AM EDT ROBYN 08/14 F/u 11/13 Lab Results Component Value Date HGBA1C 7.6 08/12/2023 MALBUR 102.0 08/12/2023 MALBCR 65.8 08/12/2023 CHOL 94 05/20/2023 LDL 43 05/20/2023 HDL 40 05/20/2023 TRIG 59 05/20/2023 GLU 140 05/20/2023 CREAT 1.12 05/20/2023 documented in this encounter Plan of Treatment Not on file documented as of this encounter Visit Diagnoses Not on filedocumented in this encounter Care Teams Water Quality Analyst Relationship Specialty Start Date End Date Katie Gaytan MD [address] [place] [address] PCP - General 02/18/1999 Yovany Giles MD [address] [place] [address] 33503 Specialist Cardiology 08/12/22 Nyla Grullon NP [address] [place] [address] Cardiology 12/02/22 documented as of this encounter
--- OUTSIDE RECORDS SUMMARY | 2025-01-25 10:45 | XMS_ITS | Encounter Summary ---
Author Organization [facility] Address [address] [place] [address] Care Team Providers Care Software Developer Intern Name Role Phone Katie Gaytan MD Primary Care Provider [phone] Yovany Giles MD Unavailable Nyla Grullon FLIGHT NURSE Unavailable Unavailable Encounter Details Date Type Department Care Team Description 05/12/2023 Orders Only Medical Records [address] [place] [address] 24801 Fern Tabares DPM Social History Tobacco Use [...] on filedocumented in this encounter Care Teams Software Developer Intern Relationship Specialty Start Date End Date Katie Gaytan MD [address] [place] [address] 01020 PCP - General 02/18/1999 Yovany Giles MD [address] [place] [address] 01020 Specialist Cardiology 08/12/22 Nyla Grullon, TAMAR [address] [place] [address] Cardiology 12/02/22 documented as of this encounter
--- OUTSIDE RECORDS SUMMARY | 2025-01-25 10:45 | XMS_ITS | Encounter Summary ---
Author Organization [facility] Address [address] [place] [address] Care Team Providers Care Bar Examiner Name Role Phone Katie Gaytan MD Primary Care Provider Yovany Giles MD Unavailable Nyla Grullon NP Unavailable Unavailable Reason for Visit * Reason Onset Date Comments Call From Office 11/26/2022 Encounter Details Date Type Department Care Team Description 11/26/2022 Telephone Adult Medicine [address] [phone] Katie Gaytan MD [address] [place] [address] [phone] Call From Md Office Social History Tobacco Use Types Packs/Day [...] on filedocumented in this encounter Care Teams Bar Examiner Relationship Specialty Start Date End Date Katie Gaytan MD [address] [place] [address] PCP - General 02/18/1999 Yovany Giles MD [address] [place] [address] 12125 Specialist Cardiology 08/12/22 Nyla Grullon NP [address] [place] [address] Cardiology 12/02/22 documented as of this encounter
--- OUTSIDE RECORDS SUMMARY | 2025-01-25 10:45 | XMS_ITS | Encounter Summary ---
Author Organization [facility] Address [address] [place] [address] Care Team Providers Care Global Coordinator Name Role Phone Katie Gaytan MD Primary Care Provider [phone] Yovany Giles MD Unavailable Nyla Grullon NP Unavailable Unavailable Encounter Details Date Type Department Care Team Description 10/25/2022 SCAN Medical Records [address] [place] [address] [facility] Social History Tobacco Use Types [...] on filedocumented in this encounter Care Teams Global Coordinator Relationship Specialty Start Date End Date Katie Gaytan MD [address] [place] [address] [phone] PCP - General 02/18/1999 Yovany Giles MD [address] [place] [address] [phone] Specialist Cardiology 08/12/22 Nyla Grullon NP [address] [place] [address] [place] [address] Cardiology 12/02/22 documented as of this encounter
--- OUTSIDE RECORDS SUMMARY | 2025-01-25 10:45 | XMS_ITS | Clinical Summary ---
Author Organization [facility] Address [address] [place] [address] Care Team Providers Care Patent Solicitor Name Role Phone Katie Gaytan MD Primary Care Provider [phone] Yovany Giles MD Unavailable Nyla Grullon NP [...] 200 1 2006 Active Continuous Blood Gluc Back Joiner (FreeStyle Pat 2 [place]) Device 1 Device by Does not apply [...] Continuous Glucose Sensor (FreeStyle Pat 2 Sensor) [facility] USE DIRECTED TO CHECK BLOOD GLUCOSE EVERY [...] just unsure what to do Educational Resources [place] [employer] (www.diabetes.org) Centers for Disease Control [...] catheterization 01/03 Overview: Done on 12/03/2022 at [facility] indications:Cardiomyopathy Cardiomyopathy 10/25/2022 Last Assessment & [...] continue to follow with your specilaist at [facility], and get me the record. When [...] just unsure what to do Educational Resources [place] [employer] (www.diabetes.org) Centers for Disease Control and Prevention (www.cdc.gov/diabetes) This care plan was created in collaboration with Randy Tan on 02/14/2014 Morbid obesity 05/29/2005 Esophageal reflux 05/29/2005 Overview: The patient underwent upper GI endoscopy 08.30.05 at [facility] for the evaluation of reflux and [...] no polyps or tumors, performed 08.30.05 at [facility]. No colon cancer screening necessary until 2015. Colonoscopy 05/18/15 - Dr Contreras @ [facility]. 4 polyps - all adenomas rpt [...] (2 - Td or Tdap) 03/04/2023 03/04/2013 DIABETES: BLOOD SUGAR CONTRO L TEST (HGBA1C) 02/11/2024 11/11/2023, 08/12/2023, 08/12/2023, Additional history exists BMI CHECK/ADVISE 04/21/2024 11/11/2023, , 06/10/2023, Additional history exists DIABETES/HEART DISEASE: KELLEY BRITO CHOLESTEROL (LDL) 05/20/2024 05/20/2023, 05/22/2022, 09/06/2021, Additional history exists DIABETES: ANNUAL URINE PROTE IN TEST (MICROALBUMIN) 08/11/2024 08/12/2023, 05/22/2022, 09/06/2021, Additional history exists DIABETES: ANNUAL FOOT EXAM 11/27/202411/27, 09/19/2023, 07/16/2023, Additional history exists Covid-19 Vaccine (2022-05 4 season) 2024 12/25/2021, 08/08/2021, 01/20/2021, Additional history exists INFLUENZA (#1) 2024 12/25/2021, 12/20, 01/02/2021, Additional history exists DIABETES: ANNUAL EYE EXAM 02/16/20252023, 03/25/2022, 01/24/2022 (External Completion), Additional history exists HEPATITIS C SCREENING Completed 03/13/2013 SHINGLES VACCINE Completed 03/08/2019, 11/12/2018 PNEUMOCOCCAL VACCINE Completed 06/07/2019, 03/10/2018, 04/17/2007 Care Teams Patent Solicitor Relationship Specialty Start Date End Date Katie Gaytan MD [address] [place] [address] 61250 PCP - General 02/18/1999 Yovany Giles MD [address] [place] [address] 80040 Specialist Cardiology 08/12/22 Nyla Grullon NP [address] [place] [address] 13859 Cardiology 12/02/22
--- OUTSIDE RECORDS SUMMARY | 2025-01-25 10:45 | XMS_ITS | Encounter Summary ---
Author Organization [facility] Address [address] [place] [address] Care Team Providers Care Gunner'S Mate G Name Role Phone Katie Gaytan MD Primary Care Provider [phone] Yovany Giles MD Unavailable Nyla Grullon NP Unavailable Unavailable Reason for Visit * Reason Onset Date Comments REFERRAL 09/01/2017 DR BROWN [phone] Encounter Details Date Type Department Care Team Description 09/01/2017 Telephone Adult Medicine [address] [phone] Katie Gaytan MD [address] [place] [address] [phone] REFERRAL (DR BROWN [phone]) Social History Tobacco Use Types Packs/Day Years [...] No insurance referral required per patient's insurance. [facility] PPO * Telephone Encounter - Lauren Loya - 09/01/2017 9:50 AM EDT What insurance does the patient have today? Payor: [facility] / Plan: [facility] COMPLETE$20/$45 [facility] / Product Type: PPO [id number] Effective 01/19/09: BCBS will not retro referral [...] insurance must be obtained and registered in [facility] or their referral can not be processed. [...] YES Is this visit:Initial Visit Address of Specialist:[address] [place] [address] Phone # of Specialist:[phone] Fax #: (if applicable): Does patient have an appointment scheduled?: YES Date of appointment- (including a retro-request): 09/01/2017 Is this appointment related to: Not MVA, WC or Surgery related documented in this encounter Plan of Treatment Not on file documented as of this encounter Visit Diagnoses Not on filedocumented in this encounter Care Teams Gunner'S Mate G Relationship Specialty Start Date End Date Katie Gaytan MD [address] [place] [address] 30865 PCP - General 02/18/1999 Yovany Giles MD [address] [place] [address] 20088 Specialist Cardiology 08/12/22 Nyla Grullon NP [address] [place] [address] Cardiology 12/02/22 documented as of this encounter
--- OUTSIDE RECORDS SUMMARY | 2025-01-25 10:45 | XMS_ITS | Encounter Summary ---
Author Organization [facility] Address [address] [place] [address] Care Team Providers Care Senior Bi Architect Name Role Phone Katie Gaytan MD Primary Care Provider [phone] Yovany Giles MD Unavailable Nyla Grullon NP Unavailable Unavailable Encounter Details Date Type Department Care Team Description 05/20/2011 Eye Linen Keeper Report Medical Records [address] [place] [address] 80034 Slade Ramirez MD Social History Tobacco Use [...] filedocumented in this encounter Care Teams Senior Bi Architect Relationship Specialty Start Date End Date Katie Gaytan MD [address] [place] [address] [phone] PCP - General 02/18/1999 Yovany Giles MD [address] [place] [address] [phone] Specialist Cardiology 08/12/22 Nyla Grullon NP [address] [place] [address] 97479 Cardiology 12/02/22 documented as of this encounter
--- OUTSIDE RECORDS SUMMARY | 2025-01-25 10:45 | XMS_ITS | Encounter Summary ---
Author Organization [facility] Address [address] [place] [address] Care Team Providers Care Maple Sugar Maker Name Role Phone Katie Gaytan MD Primary Care Provider Yovany Giles MD Unavailable Nyla Grullon NP Unavailable Unavailable Encounter Details Date Type Department Care Team Description 04/30/2012 Edge Sander Report Medical Records [address] [place] [address] 96090 An Aranda MD Social History Tobacco Use [...] on filedocumented in this encounter Care Teams Maple Sugar Maker Relationship Specialty Start Date End Date Katie Gaytan MD [address] [place] [address] [phone] PCP - General 02/18/1999 Yovany Giles MD [address] [place] [address] [phone] Specialist Cardiology 08/12/22 Nyla Grullon NP [address] [place] [address] 47454 Cardiology 12/02/22 documented as of this encounter
--- OUTSIDE RECORDS SUMMARY | 2025-01-25 10:45 | XMS_ITS | Encounter Summary ---
Author Organization [facility] Address [address] [place] [address] Care Team Providers Care Political Consultant Name Role Phone Katie Gaytan MD Primary Care Provider [phone] Yovany Giles MD Unavailable Nyla Grullon NP Unavailable Unavailable Reason for Visit * Reason Onset Date Comments Prior Authorization 05/22/2017 Encounter Details Date Type Department Care Team Description 05/22/2017 Telephone Radiology - [address] [phone] Katie Gaytan MD [address] [place] [address] [phone] Prior Authorization Social History Tobacco Use Types [...] 05/22/2017 12:35 PM EST No auth required [facility] * Telephone Encounter - Taylor Tapia - 05/22/2017 11:17 AM EST Requesting prior authorizaiton for an echocardiogram. Thank you documented in this encounter Plan of Treatment Not on file documented as of this encounter Visit Diagnoses Not on filedocumented in this encounter Care Teams Political Consultant Relationship Specialty Start Date End Date Katie Gaytan MD [address] [place] [address] 16962 PCP - General 02/18/1999 Yovany Giles MD [address] [place] [address] 18902 Specialist Cardiology 08/12/22 Nyla Grullon NP [address] [place] [address] Cardiology 12/02/22 documented as of this encounter
--- OUTSIDE RECORDS SUMMARY | 2025-01-25 10:46 | XMS_ITS | Encounter Summary ---
Author Organization [facility] Address [address] [place] [address] Care Team Providers Care Computer Applications Developer Name Role Phone Katie Gaytan MD Primary Care Provider [phone] Yovany Giles MD Unavailable Nyla Grullon NP Unavailable Unavailable Encounter Details Date Type Department Care Team Description 07/26/2019 Telephone Adult Medicine [address] Social History Tobacco Use Types Packs/Day [...] filedocumented in this encounter Care Teams Computer Applications Developer Relationship Specialty Start Date End Date Katie Gaytan MD [address] [place] [address] [phone] PCP - General 02/18/1999 Yovany Giles MD [address] [place] [address] [phone] Specialist Cardiology 08/12/22 Nyla Grullon NP [address] [place] [address] 54028 Cardiology 12/02/22 documented as of this encounter
--- OUTSIDE RECORDS SUMMARY | 2025-01-25 10:46 | XMS_ITS | Encounter Summary ---
Author Organization [facility] Address [address] [place] [address] Care Team Providers Care Mail Room Name Role Phone Katie Hernandez MD Primary Care Provider [phone] Yovany Giles MD Unavailable Nyla Grullon JEWELRY JOBBER Unavailable Unavailable Reason for Visit * Reason Onset Date Comments Follow-up Appt Unavailable 10/06/2013 Encounter Details Date Type Department Care Team Description 10/06/2013 Telephone Adult Medicine [address] [phone] Katie Hernandez MD [address] [place] [address] [phone] Follow-up Appt Unavailable Social History Tobacco Use [...] on filedocumented in this encounter Care Teams Mail Room Relationship Specialty Start Date End Date Katie Hernandez MD [address] [place] [address] PCP - General 02/18/1999 Yovany Giles MD [address] [place] [address] 27714 Specialist Cardiology 08/12/22 Nyla Grullon NP [address] [place] [address] Cardiology 12/02/22 documented as of this encounter
--- OUTSIDE RECORDS SUMMARY | 2025-01-25 10:46 | XMS_ITS | Encounter Summary ---
Author Organization [facility] Address [address] [place] [address] Care Team Providers Care Pasting Inspector Name Role Phone Katie Gaytan MD Primary Care Provider [phone] Yovany Giles MD Unavailable Nyla Grullon NP Unavailable Unavailable Encounter Details Date Type Department Care Team Description 09/14/2020 Water Regulator And Valve Repairer Report Medical Records [address] [place] [address] Fern Tabares DPM Social History Tobacco Use [...] on filedocumented in this encounter Care Teams Pasting Inspector Relationship Specialty Start Date End Date Katie Gaytan MD [address] [place] [address] [phone] PCP - General 02/18/1999 Yovany Giles MD [address] [place] [address] [phone] Specialist Cardiology 08/12/22 Nyla Grullon NP [address] [place] [address] 60788 Cardiology 12/02/22 documented as of this encounter
--- OUTSIDE RECORDS SUMMARY | 2025-01-25 10:46 | XMS_ITS | Encounter Summary ---
Author Organization [facility] Address [address] [place] [address] Care Team Providers Care Wood Piler Name Role Phone Katie Gaytan MD Primary Care Provider [phone] Yovany Giles MD Unavailable Nyla Grullon NP Unavailable Unavailable Encounter Details Date Type Department Care Team Description 11/16/2020 Service Architect Report Medical Records [address] [place] [address] 31231 Fern Tabares DPM Social History Tobacco Use [...] filedocumented in this encounter Care Teams Wood Piler Relationship Specialty Start Date End Date Katie Gaytan MD [address] [place] [address] [phone] PCP - General 02/18/1999 Yovany Giles MD [address] [place] [address] [phone] Specialist Cardiology 08/12/22 Nyla Grullon NP [address] [place] [address] 32989 Cardiology 12/02/22 documented as of this encounter
--- OUTSIDE RECORDS SUMMARY | 2025-01-25 10:46 | XMS_ITS | Encounter Summary ---
Author Organization [facility] Address [address] [place] [address] Care Team Providers Care Software Consultant Name Role Phone Katie Gaytan MD Primary Care Provider [phone] Yovany Giles MD Unavailable Nyla Grullon NP Unavailable Unavailable Reason for Visit * Reason Onset Date Comments Appointment Cancelled 02/27/2015 Encounter Details Date Type Department Care Team Description 02/27/2015 Telephone Podiatry - [address] [address] Ajit Szymanski, [id number] Appointment Cancelled Social History Tobacco Use Types Packs/Day Years [...] Miscellaneous Notes * Telephone Encounter - Kristina Engel - 02/27/2015 12:12 PM EST Patient was referred for: Podiatry. Reason for referral: Problem visit for routine care, new pt, dm Priority: Next Available Payor: Not third-alliance party related FYI Patient cancelled his appt with Dr. Ajit Szymanski for 02/28/15. Patient states Dr. Gaytan wanted him to hold off on this appointment till he addresses other problems he is having. Thank You documented in this encounter Plan of Treatment Not on file documented as of this encounter Visit Diagnoses Not on filedocumented in this encounter Care Teams Software Consultant Relationship Specialty Start Date End Date Katie Gaytan MD [address] [place] [address] 43857 PCP - General 02/18/1999 Yovany Giles MD [address] [place] [address] 27467 Specialist Cardiology 08/12/22 Nyla Grullon NP [address] [place] [address] Cardiology 12/02/22 documented as of this encounter
--- OUTSIDE RECORDS SUMMARY | 2025-01-25 10:46 | XMS_ITS | Encounter Summary ---
Author Organization [facility] Address [address] [place] [address] Care Team Providers Care Process Area Supervisor Name Role Phone Katie Gaytan MD Primary Care Provider [phone] Yovany Giles MD Unavailable Nyla Grullon NP Unavailable Unavailable Encounter Details Date Type Department Care Team Description 07/26/2019 Telephone Adult Medicine [address] Social History Tobacco Use Types Packs/Day [...] on filedocumented in this encounter Care Teams Process Area Supervisor Relationship Specialty Start Date End Date Katie Gatyan MD [address] [place] [address] [phone] PCP - General 02/18/1999 Yovany Giles MD [address] [place] [address] [phone] Specialist Cardiology 08/12/22 Nyla Grullon NP [address] [place] [address] 06718 Cardiology 12/02/22 documented as of this encounter
--- OUTSIDE RECORDS SUMMARY | 2025-01-25 10:46 | XMS_ITS | Encounter Summary ---
Author Organization [facility] Address [address] [place] [address] Care Team Providers Care Sales Representative Education Courses Name Role Phone Katie Gaytan MD Primary Care Provider [phone] Yovany Giles MD Unavailable Nyla Grullon NP Unavailable Unavailable Encounter Details Date Type Department Care Team Description 12/30/2013 Solutions Market Consultant Report Medical Records [address] [place] [address] Marcio Naranjo Social History Tobacco Use Types Packs/Day Years [...] on filedocumented in this encounter Care Teams Sales Representative Education Courses Relationship Specialty Start Date End Date Katie Gaytan MD [address] [place] [address] [phone] PCP - General 02/18/1999 Yovany Giles MD [address] [place] [address] [phone] Specialist Cardiology 08/12/22 Nyla Grullon NP [address] [place] [address] 8[address]60 Cardiology 12/02/22 documented as of this encounter
--- OUTSIDE RECORDS SUMMARY | 2025-01-25 10:46 | XMS_ITS | Encounter Summary ---
Author Organization [facility] Address [address] [place] [address] Care Team Providers Care Electronic Funds Transfer Coordinator Name Role Phone Katie Gaytan MD Primary Care Provider Yovany Giles MD Unavailable Nyla Grullon NP Unavailable Unavailable Reason for Visit * Reason Onset Date Comments Faxed Refill 06/06/2020 Encounter Details Date Type Department Care Team Description 06/06/2020 Refill Adult Medicine [address] [phone] Katie Gaytan MD [address] [place] [address] [phone] Faxed Refill Social History Tobacco Use Types [...] current insurance carrier is: Payor: [facility] / Plan: AARP MEDICARE COMPLETE $15/$[address] [facility] [id number] / Product Type: PPO [id number] documented in this encounter Plan of Treatment Not on file documented as of this encounter Visit Diagnoses Not on filedocumented in this encounter Care Teams Electronic Funds Transfer Coordinator Relationship Specialty Start Date End Date Katie Gaytan MD [address] [place], [place] [phone] PCP - General 02/18/1999 Yovany Giles MD [address] [place] [address] Specialist Cardiology 08/12/22 Nyla Grullon NP [address] [place] [address] Cardiology 12/02/22 documented as of this encounter
--- OUTSIDE RECORDS SUMMARY | 2025-01-25 10:46 | XMS_ITS | Encounter Summary ---
Author Organization [facility] Address [address] [place] [address] Care Team Providers Care Certified Teacher Assistant Name Role Phone Katie Gaytan MD Primary Care Provider [phone] Yovany Giles MD Unavailable Nyla Grullon NP Unavailable Unavailable Encounter Details Date Type Department Care Team Description 11/24/2013 Decorating Inspector Report Medical Records [address] [place] [address] Lesley Medeiros Social History Tobacco Use Types [...] on filedocumented in this encounter Care Teams Certified Teacher Assistant Relationship Specialty Start Date End Date Katie Gaytan MD [address] [place] [address] [phone] PCP - General 02/18/1999 Yovany Giles MD [address] [place] [address] [phone] Specialist Cardiology 08/12/22 Nyla Grullon NP [address] [place] [address] Cardiology 12/02/22 documented as of this encounter
--- OUTSIDE RECORDS SUMMARY | 2025-01-25 10:46 | XMS_ITS | Encounter Summary ---
Author Organization [facility] Address [address] [place] [address] Care Team Providers Care Leather Softener Name Role Phone Katie Gaytan MD Primary Care Provider [phone] Yovany Giles MD Unavailable Nyla Grullon NP Unavailable Unavailable Encounter Details Date Type Department Care Team Description 01/04/2014 Wallpaper Printer Helper Report Medical Records [address] [place], [place] [phone] Social History Tobacco Use Types Packs/Day Years [...] on filedocumented in this encounter Care Teams Leather Softener Relationship Specialty Start Date End Date Katie Gaytan MD [address] [place], [place] [phone] PCP - General 02/18/1999 Yovany Giles MD [address] [place], [place] [phone] Specialist Cardiology 08/12/22 Nyla Grullon NP [address] [place] [address] Cardiology 12/02/22 documented as of this encounter
--- OUTSIDE RECORDS SUMMARY | 2025-01-25 10:46 | XMS_ITS | Encounter Summary ---
Author Organization [facility] Address [address] [place] [address] Care Team Providers Care Cisco Engineer Name Role Phone Katie Hernandez MD Primary Care Provider [phone] Yovany Giles MD Unavailable Nyla Grullon NP Unavailable Unavailable Reason for Visit * Reason Onset Date Comments APPOINTMENT 12/12/2014 dr hernandez wants to o verbook this patient on 12/15/14. Encounter Details Date Type Department Care Team Description 12/12/2014 Telephone Adult Medicine [address] [phone] Katie Hernandez MD [address] [place] [address] [phone] APPOINTMENT (dr hernandez wants to overbook this [...] on filedocumented in this encounter Care Teams Cisco Engineer Relationship Specialty Start Date End Date Katie Hernandez MD [address] [place] [address] PCP - General 02/18/1999 Yovany Giles MD [address] [place] [address] Specialist Cardiology 08/12/22 Nyla Grullon NP [address] [place] [address] 269[address] Cardiology 12/02/22 documented as of this encounter
--- OUTSIDE RECORDS SUMMARY | 2025-01-25 10:46 | XMS_ITS | Encounter Summary ---
Author Organization [facility] Address [address] [place] [address] Care Team Providers Care Starbucks Barista Name Role Phone Katie Gaytan MD Primary Care Provider Yovany Giles MD Unavailable Nyla Grullon NP Unavailable Unavailable Reason for Visit * Reason Onset Date Comments Pre-visit Diabetes Lab Adult Medicine 02/03/202002/14 Encounter Details Date Type Department Care Team Description 02/03/2020 Telephone Adult Medicine [address] [phone] Katie Gaytan MD [address] [place] [address] [phone] Pre-visit Diabetes Lab Adult Medicine (02/14) Social [...] on filedocumented in this encounter Care Teams Starbucks Barista Relationship Specialty Start Date End Date Katie Gaytan MD [address] [place] [address] PCP - General 02/18/1999 Yovany Giles MD [address] [place] [address] 77[address] Specialist Cardiology 08/12/22 Nyla Grullon NP [address] [place] [address] 9[address]39 Cardiology 12/02/22 documented as of this encounter
== END 2025-01-25 09:31 | disposition home or self-care (01) ==
LOC: HO.LAB 09:30
PROVIDERS: Visit Provider Nurse Practitioner Family
DX: Z13.89 Encounter for screening for other disorder (principal)

== ENCOUNTER 2025-01-25 10:02 | Outpatient (REF) | payer MEDICARE, SELFPAY ==
[2025-01-25 13:38] LABS: Prostate Specific Antigen 1.78 ng/mL (<0.05-4.0)
== END 2025-01-25 10:03 | disposition home or self-care (01) ==
LOC: HO.10HDL 10:02
PROVIDERS: Visit Provider Nurse Practitioner Family
DX: Z12.5 Encounter for screening for malignant neoplasm of prostate (principal); R31.29 Other microscopic hematuria; R33.9 Retention of urine, unspecified
CPT/HCPCS: 36415; 84153; 88112

== ENCOUNTER 2025-01-31 07:27 | Outpatient (REF) | payer MEDICARE, SELFPAY ==
--- OUTSIDE RECORDS SUMMARY | 2024-04-02 04:00 | XMS_ITS ---
Author Organization [facility] Address [address] [address] Care Team Providers Care Painter Helper Sign Name Role Phone Katie Gaytan Primary Care Provider Unavailabl NAT Covarrubias [phone] REASON FOR VISIT 9wk DM... left voicemail 03/02/2024 at 8:26am to R/S appt Encounters Encounter Location Date Provider Diagnosis [facility] [address] [address] 04/02/2024 NAT BROWN Plan Of Treatment No Information Progress Notes * Randy TANDOB:1950 (74 yo M)Acc No.[id number]:04/02/2024 Progress Note Patient: Randy HORN Provider: Tono Brown DPM :1950 A ge:73 Y S ex:Male Date:04/02/2024 Address:[address] [place] [address] [facility] [id number] Pcp:Katie Gaytan Subjective: * Chief Complaints: * 1 . 9wk DM... left voicemail 03/02/2024 at 8:26am to R/S appt. * Medical History: Objective: * Vitals: Assessment: Plan: * Treatment: * Billing Information: * Visit Code: * Procedure Codes: * Electronic signature of EMILY BROWN D.P.M on 01/31/2025 at 07:30 AM EDT Sign off status: Pending * Provider: Tono Brown DPM Date: 06/03/2023 Generated for Angela wu/Tl/Anabell on: 07:30 AM EDT
--- OUTSIDE RECORDS SUMMARY | 2024-12-31 04:30 | XMS_ITS ---
Author Organization [facility] Address [address] [address] Care Team Providers Care News Writer Name Role Phone Katie Gaytan Primary Care Provider UnavailNAT Villalobos [phone] REASON FOR VISIT 9wk DM Encounters Encounter Location Date Provider Diagnosis [facility] [address] [address] 12/31/2024 NAT BROWN Plan Of Treatment No Information Progress Notes * Randy TANDOB:1950 (74 yo M)Acc No.[id number]:12/31/2024 Progress Note Patient: Daniel HORNin Ludin Provider: Tono Brown DPM :1950 A ge:74 Y S ex:Male Date:12/31/2024 Address:[address] [place] [address] [facility] [place], [id number] Pcp:Katie Gaytan Subjective: * Chief Complaints: * 1 . 9wk DM. * Medical History: Objective: * Vitals: Assessment: Plan: * Treatment: * Billing Information: * Visit Code: * Procedure Codes: * Electronic signature of Hortencia TORRESPAndrew on 01/31/2025 at 07:30 AM EDT Sign off status: Pending * Provider: Tono Brown DPM Date: 0 12/31/2024 Generated for Printi ng/Faxing/eTransmitting on: 1 07:30 AM EDT
--- OUTSIDE RECORDS SUMMARY | 2025-01-03 04:30 | XMS_ITS ---
Author Organization [facility] Address [address] [address] Care Team Providers Care Sas Statistical Programmer Name Role Phone Katie Gaytan Primary Care Provider UnavailNAT Villalobos [phone] REASON FOR VISIT 9wk DM Encounters Encounter Location Date Provider Diagnosis [facility] [address] [address] 01/03/2025 NAT BROWN Plan Of Treatment No Information Progress Notes * Randy TANDOB:1950 (74 yo M)Acc No.[id number]:01/03/2025 Progress Note Patient: Daniel HORNin Ludin Provider: Tono Brown DPM :1950 A ge:74 Y S ex:Male Date:01/03/2025 Address:[address] [place] [address] [facility] [id number] Pcp:Katie Gaytan Subjective: * Chief Complaints: * 1 . 9wk DM. * Medical History: Objective: * Vitals: Assessment: Plan: * Treatment: * Billing Information: * Visit Code: * Procedure Codes: * Electronic signature of Hortencia TORRESPAndrew on 01/31/2025 at 07:31 AM EDT Sign off status: Pending * Provider: Tono Brown DPM Date: 0 01/03/2025 Generated for Printi ng/Faxing/eTransmitting on: 1 07:31 AM EDT
[2025-01-31 06:46] LABS: MANUAL DIFF FLAG NO
[2025-01-31 07:18] LABS: Hematocrit 39.1 % (42.0-52.0); Hemoglobin 11.4 g/dl (14.0-18.0); Imm Gran Abs Auto 0.01 X10*3/uL (0.00-0.03); Imm Gran Pct Auto 0.2 % (0.0-0.4); Lymphocytes Absolute Auto 1.1 X10*3/uL (1.2-4.9); Mean Corpuscular HGB Conc 29.2 g/dl (31.0-36.0); Mean Corpuscular Hemoglobin 23.8 pg (27.0-33.0); Mean Corpuscular Volume 81.6 fL (80.0-98.0); NRBC Abs Auto 0.000 X10*3/uL (0.0-0.012); NRBC Pct Auto 0.0 /100WBC (0.0-0.2); Platelet Count 166 X10*3/uL (160-400); Red Blood Count 4.79 X10*6/uL (4.60-5.80); White Blood Count 4.3 X10*3/uL (4.8-10.8)
--- OUTSIDE RECORDS SUMMARY | 2025-01-31 07:31 | XMS_ITS | Encounter Summary ---
Author Organization [facility] Address [address] [place] [address] Care Team Providers Care Workers Compensation Paralegal Name Role Phone Katie Gaytan MD Primary Care Provider [phone] Reason for Visit * Reason Onset Date Comments No Show 01/21/2025 Disregard no jean w - pt was in hospital 01.21.25 Encounter Details Date Type Department Care Team (Late st Contact Info) Description 01/21/2025 Telephone [facility] [address] [facility] [address] [place] [address] Sarah Lee NP [address] [place] [address] [place] [address] Social History Tobacco Use Types [...] care for your loved ones. For example, childbirth educator or elderly care for an older adult? [...] as of this encounter Progress Notes * Ginny Washington - 01/26/2025 3:56 PM EDT Patient was in the [facility] and is currently in rehab. Wanted to inform our office due to no show call. Please advise. Best call back number is [phone] * Rose Alejandro MA - 01/21/2025 3:06 PM EDT Letter sent with information on no showed appointment and no show policy documented in this encounter Plan of Treatment Upcoming Encounters Date Type Department Care Team (Late st Contact Info) Description 03/30/2025 9:20 AM EST Office Visit Endocrinology - [place] [address] [place] [address] Julia Oconnell PA [address] [place] [address] documented as of this encounter Visit Diagnoses Not on filedocumented in this encounter Additional Health Concerns Assessment Noted Time PHQ-9 Depression Total Score: 0 03/22/20 10:44 AM EST A fall risk assessment has been complete d for the patient 03/20/2024 12:04 PM EST documented as of this encounter Care Teams Workers Compensation Paralegal Relationship Specialty Start Date End Date Katie Gaytan MD [address] [place] [address] PCP - General 02/18/1999 documented as of this encounter
--- OUTSIDE RECORDS SUMMARY | 2025-01-31 07:31 | XMS_ITS | Encounter Summary ---
Author Organization [facility] Address [address] [place] [address] Care Team Providers Care Acct Exec Name Role Phone Katie Gaytan MD Primary Care Provider [phone] Encounter Details Date Type Department Care Team (Latest Contact Info) Description 03/02/2024 Anticoagulation - Warfarin Visit Coumadin Clinic - [address] [phone] Shonna White LPN Personal history of DVT [...] 9:20 AM EST Office Visit Endocrinology - [address] [phone] Julia Oconnell PA [address] [place] [address] documented as of this encounter Visit Diagnoses Diagnosis Personal history of DVT (deep vein thrombosis)- Primary Personal history of venous thrombosis and embolism documented in this encounter Care Teams Acct Exec Relationship Specialty Start Date End Date Katie Gaytan MD [address] [place] [address] PCP - General 02/18/1999 documented as of this encounter
--- OUTSIDE RECORDS SUMMARY | 2025-01-31 07:31 | XMS_ITS | Patient Health Record ---
Author Organization [facility] Address [address] [facility] [address] [facility] [place] [place] [address] Care Team Providers Care Feller Hand Name Role Phone Katie Gaytan Primary Care Provider NAT Bai Unavailable [phone] Allergies Allergen (clinical drug ingredient) Drug/Non Drug [...] Polyneuropathy due to type 2 diabetes mellitus (006160867) Type 2 diabetes mellitus with diabetic polyneuropathy (E11.42) Active confirmed Problem Long-term current use of insulin (177121867) surveillance system monitor (current) use of insulin (Z79.4) Active confirmed Problem Peripheral vascular disease (680344013) PVD (peripheral vascular disease) (I73.9) Active confirmed Problem Peripheral venous insufficiency (44530596) Venous stasis dermatitis of both lower extremities (I87.2) Active confirmed Problem Ulcer of right lower extremity, limited to breakdown of skin (L97.911) Active confirmed Problem Ankle ulcer (033083320) Skin ulcer of right ankle with fat layer exposed (L97.312) Active confirmed Vital Signs Heart Rate 87 /min 10/27/2024 Temperature 96.6 degrees Fahrenheit 10/27/2024 Respiratory Rate 20 /min 10/27/2024 Height 6ft 4in in 10/27/2024 Weight 258.2 lbs 10/27/2024 BMI 31.43 kg/m2 10/27/2024 Encounters Encounter Location Date Provider Diagnosis [facility] [address] [address] 04/05/2024 NATMARVIN BROWN Type 2 diabetes mellitus with diabetic polyneuropathy E11.42 ; Dystrophic nail L60.3 ; Pain in left toe(s) M79.675 ; Pain in right toe(s) M79.674 ; Venous stasis dermatitis of both lower extremities I87.2 and Localized swelling of both lower legs R22.43 [facility] [address] [address] 06/18/2024 NATMARVIN BROWN Type 2 diabetes mellitus with diabetic polyneuropathy E11.42 ; Dystrophic nail L60.3 ; Pain in left toe(s) M79.675 ; Pain in right toe(s) M79.674 ; Venous stasis dermatitis of both lower extremities I87.2 and Localized swelling of both lower legs R22.43 [facility] [address] 08/20/2024 NAT BROWN Type 2 diabetes mellitus with diabetic polyneuropathy E11.42 ; Tinea pedis, right B35.3 ; Dystrophic nail L60.3 ; Pain in left toe(s) M79.675 ; Pain in right toe(s) M79.674 ; Venous stasis dermatitis of both lower extremities I87.2 and Localized swelling of both lower legs R22.43 [facility] [address] 10/27/2024 NAT BROWN Ulcer of right lower extremity, limited to breakdown of skin L97.911 ; Cellulitis of right leg L03.115 ; Type 2 diabetes mellitus with diabetic polyneuropathy E11.42 ; Dystrophic nail L60.3 ; Pain in right toe(s) M79.674 and Pain in left toe(s) M79.675 [facility] [address] 06/18/2024 NAT BROWN [facility] [address] 06/18/2024 NAT BROWN [facility] [address] 08/23/2024 NAT BROWN Assessments Encounter Date Diagnosis (ICD Code) Assessment Notes Treatment Notes Treatment Clinical Notes Section Notes 04/05/2024 Type 2 diabetes mellitus with diabetic [...] PO BID x 10 days sent to [facility] pharmacy per the patient's request. Pt [...] have to pay out of pocket. 04/05/2024 Pain in left toe(s) (ICD-10 - [...] in right toe(s) (ICD-10 - M79.674) 06/18/2024 Venous stasis dermatitis of both lower [...] Date Coverage End Date [employer] Medicare [id number] [address] [address] [place] [address] [phone] [id number] Randy Barnes i Self - patient is [...]
--- OUTSIDE RECORDS SUMMARY | 2025-01-31 07:31 | XMS_ITS | Encounter Summary ---
Author Organization [facility] Address [address] [place] [address] Care Team Providers Care Dough Cutting Machine Operator Name Role Phone Katie Gaytan MD Primary Care Provider [phone] Encounter Details Date Type Department Care Team ([facility] st Contact Info) Description 12/27/2024 Telephone Adult Medicine [facility] [address] [place] [phone] Katie Gaytan MD [address] [place] [address] Social History Tobacco Use Types Packs/Day Years [...] for your loved ones. For example, children's zoo caretaker or elderly care for an older adult? [...] been hospitalized for a couple week at [facility] reason why Patient missed his appointment on 12/24/24. Patient's Partner looking for call back ( She is Emergency Contact but we have No updated Verbal Release on file orHealthcare Proxy) documented in this encounter Plan of Treatment Upcoming Encounters Date Type Department Care Team (Late st Contact Info) Description 03/30/2025 9:20 AM EST Office Visit Endocrinology [facility] [address] [place] [address] Julia Oconnell PA [address] [place] [address] documented as of this encounter Visit Diagnoses Not on filedocumented in this encounter Additional Health Concerns Assessment Noted Time PHQ-9 Depression Total Score: 0 03/22/20 10:44 AM EST A fall risk assessment has been complete d for the patient 03/20/2024 12:04 PM EST documented as of this encounter Care Teams Dough Cutting Machine Operator Relationship Specialty Start Date End Date Katie Gaytan MD [address] [place] [address] PCP - General 02/18/1999 documented as of this encounter
--- OUTSIDE RECORDS SUMMARY | 2025-01-31 07:31 | XMS_ITS | Clinical Summary ---
Author Organization [facility] Address [address] [facility] [address] [place] [address] Phone Care Team Providers Care Plant Anatomist Name Role Phone Katie Gaytan MD Primary Care Provider [phone] Social History Tobacco Use Types Packs/Day Years [...] topic Medical Devices Not on file Insurance [facility] MEDICARE REPLACEMENT MEDICARE PART A & B [facility] MEDICARE REPLACEMENT [place] [id number] MEDICARE PART A & B Member Subscriber Plan / Payer (Ef fective 2017-Present) Name:Randy Tan Member ID:[id number] Relation to Subscriber:Self Name:Randy Tan Subscriber ID:[id number] Payer ID:[id number] Group ID:Not on file Type:Medicare Address: [employer] [id number] MEDICARE REPLACEMENT MEDICARE PART A & B MEDICARE REPLACEMENT MEDICARE PART A & B MEDICARE REPLACEMENT MEDICARE PART A & B [facility] MEDICARE REPLACEMENT MEDICARE PART A & B Care Teams Plant Anatomist Relationship Specialty Start Date End Date Katie Gaytan MD [address] [place] [address] PCP - General Internal Medicine 04/17/23 Additional Source Comments The information contained in this document represents components of the legal health record. It is not the complete legal health record.[facility]
--- OUTSIDE RECORDS SUMMARY | 2025-01-31 07:31 | XMS_ITS | Clinical Summary ---
Author Organization [address] [place] [address] [place] [phone] Phone Care Team Providers Care Dobby Looms Pegger Name Role Phone Katie Gaytan MD Primary Care Provider [phone] Allergies Active Allergy Reactions Criticality Noted Date [...] 90 tablet 2 025 Active blood-glucose meter,continuous (Compendiumyle Pat 3 [place]) miscIndications: DM (diabetes mellitus), type 2 with [...] calf with varicose veins, unspecified ulcer stage ([facility] V24, [facility] V28),Venous stasis ulcer of right calf limited to breakdown of skin with varicose veins ([facility] V24, [facility] V28),Personal history of DVT (deep [...] current use of insulin, unspecified CKD stage ([facility] V24, [facility] V28) Change sensor every 15 [...] (diabetes mellitus), type 2 with neurological complications ([facility] V24, [facility] V28) Use to check bs daily 1 each 025 Active blood sugar diagnostic (Contour Next Test Strips) test stripIndications :DM (diabetes mellitus), type 2 with neurological complications ([facility] V24, [facility] V28) Use to check bs 3 times a day 100 each 12 025 2025 Active lancets (Microlet Lancet) lancetsIndicatio ns:DM (diabetes mellitus), type 2 with neurological complications ([facility] V24, [facility] V28) Use to check bs [...] thrombosis) 1 04/27/2023 Hypotension 05/16/2023 Sepsis ([facility] V24, [facility] V28) 05/16/2023 Urinary tract infection with hematuria Overview (02/02/2024): Urosepsis, please see note 04/30/23, obstructive uropathy likely from BPH, requiring prolonged Julio cath/bag. Following with urology Dr. 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 Embolism and thrombosis of a rteries of lower extremity ([facility] V24, [facility] V28) 03/18/2017 Umbilical hernia without obstruction and without gangrene 03/02/2015 Assessment & Plan (03/24/2024 1:07 PM EST): Other specified anemias 02/15/2015 DM ketoacidosis type II, unc ontrolled ([facility] V24, [facility] V28) 09/21/2014 Microalbuminuria 09/21/2014 Nuclear [...] due t o type 2 diabetes mellitus ([facility] V24, [facility] V28) 05/29/2005 Overview (02/02/2024): Last [...] continue to follow with your specilaist at [facility], and get me the record. 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, followed by hematology IMO update Esophageal reflux 05/29/2005 Overview (02/02/2024): The patient underwent upper GI endoscopy 08.30.05 at [facility] for the evaluation of reflux and everything [...] Plan (03/24/2024 1:07 PM EST): Morbid obesity ([facility] V24, [facility] V28) 2005 Pure hypercholesterolemia 05/29/2005 [...] Type Department Care Team Description 01/21/2025 Telephone [facility] Cardiology [facility] [address] [place] [address] Sarah Lee NP 12/27/2024 Telephone Adult Medicine [place] - [address] [phone] Katie Gaytan MD 12/22/2024 Telephone [facility] Cardiology [facility] [address] [place] [address] Sarah Lee NP 12/13/2024 Anticoagulation - Warfarin Visit Coumadin [facility] - [address] [phone] Latasha Deleon LPN Personal history of DVT (deep vein thrombosis) (Primary Dx) 12/09/2024 10:00 AM EDT Ancillary Procedure [facility] Cardiology [facility] [address] [place] [address] PAD (peripheral artery disease) ([facility] V24); Ectasia of artery ([facility] V24) 12/07/2024 Telephone Vascular Surgery - [place] [address] [place] [phone] Jose Kauffman MD 12/06/2024 Anticoagulation - Warfarin Visit Coumadin [address] [phone] Latasha Deleon LPN Personal history of DVT (deep vein thrombosis) (Primary Dx) 11/30/2024 Telephone Adult Medicine [address] [phone] Carmelita Henson RN 11/30/2024 Telephone [facility] - [facility] [address] [facility] [address] [place] [phone] Yovany Giles MD 11/30/2024 Telephone Adult [address] [phone] Katie Gaytan MD 11/29/2024 Anticoagulation - Warfarin Visit Coumadin [address] [phone] Shonna White LPN Personal history of DVT (deep vein thrombosis) (Primary Dx) 11/22/2024 Anticoagulation - Warfarin Visit Coumadin [address] [phone] Shonna White LPN Personal history of DVT (deep vein thrombosis) (Primary Dx) 11/16/2024 Telephone Endocrinology [address] [phone] Julia Oconnell PA 11/15/2024 Anticoagulation - Warfarin Visit [facility] [address] [phone] Shonna White LPN Personal history of DVT (deep vein thrombosis) (Primary Dx) 11/08/2024 Anticoagulation - Warfarin Visit [facility] [address] [phone] Latasha Deleon LPN Personal history of DVT (deep vein thrombosis) (Primary Dx) 11/01/2024 9:00 AM EDT Ancillary Procedure [facility] [address] [place] [address] Longstanding persistent atrial fibrillation ([facility] V24, [facility] V28) 11/01/2024 Anticoagulation - Warfarin Visit Coumadin Clinic [facility] [address], [place] [phone] Shonna White, WINNIE Personal history of DVT (deep vein thrombosis) (Primary Dx) from Last 3 Months Immunizations Immunization Administration Dates Next Due H1N1 Inj Preservative Free 03/09/2009 Influenza trivalent, 0.5mL ( Fluad) 65yo and older 12/25/2021,01/02/2021,01/19/2019 Influenza trivalent, 0.5mL, preservative free (Fluarix; FluLaval; Fluzone) ages 6mo and older (Afluria) 3 years and older 01/16/2011,02/20/2010,01/14/2008,01/19,03/14/2006,01/31/2005 Influenza, Unspecified 01/02/2021,2017,02/05/2017,02/02,02/02/2015,01/24/2014,02/04/2012 Q Chip Covid-19 Bivalent, Or iginal + Ba.1 (Non-US Trademark COMIRNATHartman Wright Bivalent) 12/25/2021 Q Chip SARS-CoV-2 COVID-19, mRNA, LNP-S, preservative free 01/20/2021 [...] (diabetes mellitus), type 2 with neurological complications ([facility] V24, [facility] V28) 09/01/2017 DX:DM (diabetes mellitus), t ype 2 with neurological complications ([facility]) Family History Medical History Relation [...] ed Within the last 3 months, marycarmen w many times did you visit the [...] do you feel lonely or isolated from ose around you? Never 03/22/2024 Food Risk [...] for your loved ones. For example, director of early childhood education or elderly care for an older adult? [...] 9:20 AM EST Office Visit Endocrinology - [place] [address] [place] [phone] Julia Oconnell PA [address] [place] [address] Health Maintenance Due Date Last Done Comments [...] 11/01/2024 PROTHROMBIN TIME WITH INR Routine 11/01/2024 MICROALBUMIN CREATININE URINE RATIO Routine 08/25/2024 1:50 [...] with INR (12/13/2024) Only the most recent of14 resultswithin the time period is included. Provider [...] PSV 64 cm/s CV VAS LAB Left IMPLEMENTATION SPECIALIST PAYROLL prox sys PSV 70 cm/s CV VAS [...] PSV 51 cm/s CV VAS LAB Right IMPLEMENTATION SPECIALIST PAYROLL prox sys PSV 77 cm/s CV VAS [...] The mid peroneal artery has triphasic flow. Hospice Registered Nurse Details A reid scale, color and doppler analysis ultrasound was performed. During the study longitudinal views were obtained. Pulsed wave doppler was performed. us Talia ZIMMERMAN CV VASCULAR PROCEDURES Final Result * (ABNORMAL) B-type natriuretic peptide (12/02/2024 9:29 AM EDT) BNP 266(H) <=100 pcg/mL LAB CHEMISTRY METHOD 12/02/2024 11:50 AM EDT [facility] Blood Venous blood specimen / Unknown Venipuncture / Unknown 12/02/2024 9:29 AM EDT 12/02/2024 9:29 AM EDT Sarah Lee BIRD CAGE ASSEMBLER LAB BLOOD ORDERABLES Final Resu lt [facility] [address] [place] [address], * (ABNORMAL) Basic metabolic panel (12/02/2024 9:29 AM EDT) Sodium 139 133 - 145 mmol/L LAB CHEMISTRY METHOD 12/02/2024 12:42 PM [facility] Potassium 4.2 3.5 - 5.5 mmol/L LAB CHEMISTRY METHOD 12/02/2024 12:42 PM [facility] Chloride 103 96 - 110 mmol/L LAB CHEMISTRY METHOD 12/02/2024 12:42 PM [facility] CO2 32 21 - 32 mmol/L LAB CHEMISTRY METHOD 12/02/2024 12:42 PM [facility] Anion Gap 4 3 - 11 LAB CHEMISTRY METHOD 12/02/2024 12:42 PM [facility] Glucose 216(H) 70 - 100 mg/dL LAB CHEMISTRY METHOD 12/02/2024 12:42 PM [facility] BUN 17 5 - 25 mg/dL LAB CHEMISTRY METHOD 12/02/2024 12:42 PM [facility] Creatinine 0.98 0.70 - 1.30 mg/dL LAB CHEMISTRY METHOD 12/02/2024 12:42 PM [facility] eGFR 82 >=60 mL/min/1. 73m2 LAB CHEMISTRY METHOD 12/02/2024 12:42 PM [facility] Comment:Calculation based on the Chronic Kidney Disease Epidemiology Collaboration (CKD-EPI) equation refit without adjustment for race. BUN/Creatinine Ratio 17.3 LAB CHEMISTRY METHOD 12/02/2024 12:42 PM EDT [facility] Calcium 8.6 8.5 - 10.5 mg/dL LAB CHEMISTRY METHOD 12/02/2024 12:42 PM EDT [facility] Blood Venous blood specimen / Unknown Venipuncture / Unknown 12/02/2024 9:29 AM EDT 12/02/2024 9:29 AM EDT Sarah Lee BIRD CAGE ASSEMBLER LAB BLOOD ORDERABLES Final Resu lt Performing Organization Address [facility] Co de Phone Number [facility] [address] [place] [address], [place] [phone] * (ABNORMAL) Hemoglobin A1c (12/02/2024 7:55 AM EDT) Hemoglobin A1C 6.8(H) <6.5 % LAB CHEMISTRY METHOD 12/02/2024 11:37 AM EDT [facility] Mean Bld Glu Estim. 148 mg/dL LAB CHEMISTRY METHOD 12/02/2024 11:37 AM EDT [facility] Blood Venous blood specimen / Unknown Venipuncture / Unknown 12/02/2024 7:55 AM EDT 12/02/2024 7:55 AM EDT Julia ZIMMERMAN LAB BLOOD ORDERABLES Final Resul t Performing Organization Address [facility]/ZIP Co de Phone Number [facility] [address] [place] [address], [place] [phone] * (ABNORMAL) Digoxin level (12/02/2024 7:55 AM EDT) Digoxin Lvl 0.3(L) 0.5 - 2.0 ng/mL LAB CHEMISTRY METHOD 12/02/2024 11:16 AM EDT [facility] Blood Venous blood specimen / Unknown Venipuncture / Unknown 12/02/2024 7:55 AM EDT 12/02/2024 7:55 AM EDT Radha Hudson NP LAB BLOOD ORDERABLES Final Resu lt [facility] [address] [place] [address], * CARDIAC HOLTER MONITOR (REPORT GENERATED IN HOUSE) (11/01/2024 9:05 AM EDT) Anatomical Region Laterality Modality Cardiac Diagnost ic Narrative 11/03/2024 7:47 AM EDT [facility] DIAGNOSTIC [facility]ING DEPARTMENT [address] [place] [id number] TEL: FAX: Type of Test: 24 Hour Holter Monitor Date of Test: 11/01/2024 Ordering Provider: Radha Hudson NP Reason for Test: Longstanding persistent atrial fibrillation [employer] Retail Customer Service Representative Findings: 1: Atrial Fibrillation noted throughout recording. [...] LAB CHEMISTRY METHOD 08/25/2024 6:50 PM EDT [facility] Triglycerides 134 0 - 150 mg/dL LAB CHEMISTRY METHOD 08/25/2024 6:50 PM EDT [facility] HDL 39(L) >=40 mg/dL LAB CHEMISTRY METHOD 08/25/2024 6:50 PM EDT [facility] LDL Calculated 33 0 - 100 mg/dL LAB CHEMISTRY METHOD 08/25/2024 6:50 PM EDT [facility] VLDL Cholesterol Aramis 26.8 mg/dL LAB CHEMISTRY METHOD 08/25/2024 6:50 PM EDT [facility] Non HDL Chol. (LDL+VLDL) 60 <145 mg/dL LAB CHEMISTRY METHOD 08/25/2024 6:50 PM EDT [facility] Chol/HDL Ratio 2.5 0.0 - 4.4 LAB CHEMISTRY METHOD 08/25/2024 6:50 PM EDT [facility] Blood Venous blood specimen / Unknown Venipuncture / Unknown 08/25/2024 1:50 PM EDT 08/25/2024 1:50 PM EDT Jose Armando Oakley BIRD CAGE ASSEMBLER LAB BLOOD ORDERABLES Final R esult [facility] [address] [place] [address], [place] [phone] * (ABNORMAL) Microalbumin creatinine urine ratio (08/25/2024 1:50 PM EDT) Creatinine, Urine 103.0 mg/dL LAB CHEMISTRY METHOD 08/25/2024 6:51 PM EDT [facility] Microalb, Ur 121.0(H) 0.0 - 29.0 mg/L LAB CHEMISTRY METHOD 08/25/2024 6:51 PM EDT [facility] Microalb/Crea t Ratio 117(H) <30 mg/g creat LAB CHEMISTRY METHOD 08/25/2024 6:51 PM EDT [facility] Urine Urine specimen obtained by clean catch procedure / Unknown Non-blood Collection / Unknown 08/25/2024 1:50 PM EDT 08/25/2024 1:50 PM EDT us Jose Armando Oakley BIRD CAGE ASSEMBLER LAB URINE ORDERABLES Final R esult [facility] [address] [place] [address], [place] [phone] * Diabetes Foot Exam (11/28/2023) Pathologist [facility] Diabetes: Annual Foot Exam Abstracted Historical Provider HEALTH MAINTENANCE Final Result * Colonoscopy (06/10/2018) Pathologist [facility] Colonoscopy No interpreta tion,abstr acted Anatomical Region Laterality Modality Other Historical Provider HEALTH MAINTENANCE Final Result * Hepatitis C Screening (03/13/2013) [facility] Hepatitis C Screening Abstracted Historical Provider HEALTH MAINTENANCE Final Result from Last 3 Months or Most Recently Relevant to Health Maintenance Insurance [employer] MEDICARE Care Teams Dobby Looms Pegger Relationship Specialty Start Date End Date Katie Gaytan MD [address] [place] [address] PCP - General 02/18/1999
[2025-01-31 07:47] LABS: Anion Gap 13 (12-20); Blood Urea Nitrogen 24 mg/dL (9-16); Calcium 8.6 mg/dL (8.4-10.2); Carbon Dioxide 23 mmol/L (22-29); Chloride 108 mmol/L (96-108); Estimated Glomerular Filt Rate > 60; Potassium 4.5 mmol/L (3.3-5.1); Sodium 139 mmol/L (135-145)
== END 2025-01-31 07:28 | disposition home or self-care (01) ==
LOC: HO.MMNH1L 07:27
PROVIDERS: Visit Provider Physician Assistant Medical
DX: E11.9 Type 2 diabetes mellitus without complications (principal); I10 Essential (primary) hypertension
CPT/HCPCS: 36415; 80048; 85025

== ENCOUNTER 2025-03-09 12:55 | Outpatient (AMB) | payer MEDICARE, SELFPAY ==
--- NOTE | 2025-03-09 13:07 | A.OFFVIS_ITS ---
Intake Visit Reasons: Cystoscopy/PSA(set) Intake Note: Patient Is Present for Cystoscopy/PSA Urology Med: Tamsulosin Antibiotic Allergy: None Blood Thinner: Aspirin, Eliquis 01/25/2025- PSA- 1.78 01/06/2025- A1C- 7.1 Patient resports that he has better control of his bladder, would like to discuss finasteride, Uro G-HD Cystoscope LOT: EXP: Pre K Special Education Teacher Required: No Process Design Engineer: Process Design Engineer Present Accompanied by: Family/Other Allergies peanut (PEANUTS) Allergy (Intermediate, Verified 03/09/25 13:09) Hives wool (WOOL) Allergy (Unknown, Verified 03/09/25 13:09) UNK HPI Comments Details: Randy is a 72-year-old male patient of Dr. Gaytan was accompanied by his significant other at today's office visit. - urinary retention - incomplete bladder emptying - nephrolithiasis Recent CT scan essentially normal. No stones. Enlarged prostate. No bleeding Currently on Eliquis previously on warfarin Restart finasteride Six-month follow-up He has a PMH of diabetes, GERD, CAD s/p PCI with SELENE in 11/2022, atrial fibrillation, history of bilateral lower extremity DVT anticoagulated with Coumadin, chronic venous stasis dermatitis, and anasarca. Lower urinary tract symptoms Episode of retention late 2022 Failed initial voiding trial Was able to pass voiding trial after initiation of tamsulosin and finasteride 06/14 - Cystoscopy - enlarged anterior lobe Nephrolithiasis Found incidentally during admission for urinary retention Imaging - 04/12 CT scan 4 mm proximal left ureteric stone No clinical impact PSA 06/12 2.2 PFSH Medical History Atelectasis of both lungs Chronic restrictive lung disease Atrial fibrillation Atrial fibrillation with RVR BPH (benign prostatic hyperplasia) Chronic venous stasis dermatitis GERD (gastroesophageal reflux disease) CAD (coronary artery disease) Type 2 diabetes mellitus (HFpEF) heart failure with preserved ejection fraction Surgical History Hx of colonoscopy Status post percutaneous transluminal angioplasty (REGULATORY COMPLIANCE SPECIALIST) with stent placement Family History Father Kidney cancer, primary, with metastasis from kidney to other site Heart disease Social History Household Members: Other Housing: House Are you a primary rn home care to a significant other at home: No Do you presently have visiting nurse or other home services: Yes Alcohol intake: current Alcohol intake frequency: holidays/special occasions only Patient Tobacco Use Status: Never used Tobacco Second Hand Smoke Exposure: No Advance Directives Date on File: 02/13/23 service: No Review of Systems Const Denies chills and Denies fever(s) Card Reports no additional complaints and Denies syncope Resp Denies cough GI Denies abdominal pain and Denies heartburn Reports as per HPI and Denies change in libido Neuro Denies syncope Psych Denies change in libido Endo Denies change in libido Physical Exam Const General: cooperative, healthy appearing, comfortable and no acute distress Orientation/consciousness: patient oriented x3 HEENT Face and sinus: Yes normal facial exam Mouth: moist mucous membranes Neck Neck: Yes normal visual inspection, Yes full ROM and Yes trachea midline Chest Chest palpation & inspection: normal inspection of the chest Resp Effort & Inspection: normal respiratory effort, able to speak in complete sentences and no respiratory distress GI Inspection: Yes normal to inspection Back/Spine/Pelvis Cervical Spine: normal cervical lordosis Thoracic/Lumbar Spine: thoracic and lumbar spine normal to inspection Skin General skin exam: no rashes or lesions noted Neuro General: patient oriented x3, gait normal, tone normal and moves all extremities Extrem General: Yes normal to inspection and Yes capillary refill normal Results AMB Urinalysis, Automated UA Leukoctes 0 Sindi/uL Last Edit by ARLEY Kelly on 03/09/25 13:20 UA Nitrite Negative Last Edit by ARLEY Kelly on 03/09/25 13:20 UA Urobilinogen 0.2 mg/dL Last Edit by ARLEY Kelly on 03/09/25 13:2 0 UA Protein 15 mg/dL Last Edit by ARLEY Kelly on 03/09/25 13:20 UA pH 5.5 Last Edit by ARLEY Kelly on 03/09/25 13:20 UA Blood 0 Koko/uL Last Edit by ARLEY Kelly on 03/09/25 13:20 UA Specific [place] 1.015 Last Edit by Nida Kaufman, RMA on 03/09/25 13: 20 UA Ketone Negative Last Edit by Nida Kaufman, RMA on 03/09/25 13:20 UA Bilirubin 0 mg/dL Last Edit by Nida Kaufman, RMA on 03/09/25 13:20 UA Glucose 0 mg/dL Last Edit by Nida Kaufman, RMA on 03/09/25 13:20 Results Reviewed Results Reviewed: Laboratory Last Values Urine pH (Auto) 5.5 03/09/25 13:09 Specific [place] (Auto) 1.015 03/09/25 13:09 Urine Protein (Auto) 15 mg/dL 03/09/25 13:09 Glucose (UA)(Auto) 0 mg/dL 03/09/25 13:09 Urine Ketones (Auto) Negative 03/09/25 13:09 Urine Blood (Auto) 0 Koko/uL 03/09/25 13:09 Urine Nitrite (Auto) Negative 03/09/25 13:09 Urine Bilirubin (Auto) 0 mg/dL 03/09/25 13:09 Urine Urobilinogen (Auto) 0.2 mg/dL 03/09/25 13:09 Leukocyte Esterase (Auto) 0 Sindi/uL 03/09/25 13:09 Assessment & Plan Assessment & Plan (1) Urinary retention: Code(s): R33.9 - Retention of urine, unspecified Category: Medical Plan Six-month follow-up nurse-practitioner Orders: Orders AMB Urinalysis Automated Today Z13.9 - Encounter for screening, unspecified Medications: Refilled finasteride 5 mg PO DAILY 90 tabs 4RF 90 days R33.9 - Retention of urine, unspecified Patient Instructions: This note is constructed using voice recognition software. While every effort has been made to ensure accuracy mechanical piping designer errors may have been included. Imaging studies, laboratory and physical exam results were discussed and reviewed in detail. No major barriers to patient understanding were identified. An opportunity to ask questions regarding the treatment plan was provided. All questions were answered. The patient expressed understanding and agreement with the above treatment plan. The patient is aware they should contact our office by phone for worsening of their current condition or the appearance of new urologic symptoms. Compliance is encouraged with any medications and followup testing that is ordered. It is a privilege to participate in the urologic care of your patient. If you have any questions or concerns regarding treatment for the above conditions, or other urologic issues, please do not hesitate to contact me. The office telephone contact is [phone]. Sincerely, Dr Aamir Eastman MD, [facility] - Urology Compassionate Specialist Care for the Genitourinary System Coding Level of Care Code Est Pt Level 3 (05550) Complex EM visit Add On G2211 Diagnoses Urinary retention R33.9
== END 2025-03-09 14:17 | disposition home or self-care (01) ==
LOC: HO.HUSH 12:55
PROVIDERS: PCP Internal Medicine; Visit Provider Urology
DX: Z13.9 Encounter for screening, unspecified (principal); R33.9 Retention of urine, unspecified
CPT/HCPCS: 99213; G2211

== ENCOUNTER → 2025-03-09 12:55 | Outpatient (BNVA) | payer MEDICARE, SELFPAY | PROVIDERS: PCP Internal Medicine; Visit Provider Urology | DX: R33.9 Retention of urine, unspecified (principal); Z79.01 Long term (current) use of anticoagulants; Z79.82 Long term (current) use of aspirin | CPT/HCPCS: 81003; 99212 ==

== ENCOUNTER 2025-03-22 12:04 | Emergency (ER) | payer MEDICARE, SELFPAY ==
--- NOTE | ~2025-03-22 | US_ITS ---
EXAMINATION: US TRIPLEX LOWER EXTREMITY, LEFT CLINICAL INFORMATION: Left lower extremity swelling, rule out DVT. Patient has a history of DVT in the left popliteal pain. COMPARISON: 06/30/2017. TECHNIQUE: Color-flow triplex imaging with spectral analysis and compression Doppler were performed on the left lower extremity. FINDINGS: There is partially occlusive thrombus in the popliteal vein present. Otherwise, the common femoral vein, superficial femoral vein, profunda femoral vein, and midcalf peroneal and posterior tibial venous segments show no evidence of deep venous thrombosis. There is no Oakley's cyst. US/US venous duplex LE IMPRESSION: 1. Examination appears positive for DVT. Partially occlusive thrombus in the popliteal vein is present. Given that the patient has a history of DVT in this location, chronicity of this finding cannot be ascertained. Electronically signed by: Stan Barraza MD 03/22/2025 01:44 PM [facility] [place]
--- NOTE | ~2025-03-22 | CT_ITS ---
EXAMINATION: CT HEAD WITHOUT CONTRAST CLINICAL INFORMATION: Fall, on anticoagulation. COMPARISON: None available. TECHNIQUE: Contiguous axial imaging was performed from the skull base to vertex without intravenous administration of contrast. This CT examination was performed using dose optimization techniques as appropriate, variously including the following: *Automated exposure control *Adjustment of mA and/or kV according to patient size (this includes techniques or standardized protocols for targeted exams where dose is matched to indication/reason for exam; i.e. extremities or head) *Use of iterative reconstruction technique FINDINGS: There is no evidence of intracranial hemorrhage or extra-axial fluid collection. There is no mass effect, or edema. No CT evidence of acute territorial infarct. Ventricles, sulci, and cisterns are normal in size and configuration for patient age. Prominent extra-axial spaces overlying both parietal lobes noted. No hydrocephalus. No midline shift. Negative hyperdense MCA sign. Negative insular ribbon sign. Patchy periventricular and deep white matter hypoattenuation is consistent with very mild small vessel ischemic changes. Normal pituitary. Globes and orbital contents image normally. There are bilateral lens replacements. No extracranial soft tissue abnormalities. There is opacification of the left mastoid tip. The paranasal sinuses, mastoid air cells, and tympanic cavities are otherwise normally aerated. No suspicious bony abnormalities. There are no acute fractures evident. CT/CT head/brain wo IV con IMPRESSION: No acute intracranial abnormality. No fracture evident. Electronically signed by: Stan Barraza MD 03/22/2025 02:09 PM [facility] [place]
--- NOTE | ~2025-03-22 | XR_ITS ---
EXAMINATION: XR CHEST CLINICAL INFORMATION: hypoxia COMPARISON: December 28, 2024 TECHNIQUE: AP and lateral views. FINDINGS: Prominence of the interstitial markings. Pulmonary reticular pattern. Elevated left hemidiaphragm, unchanged. Cardiomediastinal silhouette size is large, unchanged. No gross pneumothorax. Multilevel spondylosis, axial skeleton. XR/XR chest 2V IMPRESSION: Chronic interstitial lung disease. Concerning mild interstitial lung edema. Probable left-sided small to moderate volume pleural effusion. Cardiomegaly. 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 EXAMINATION: XR HIP, LEFT CLINICAL INFORMATION: Status post fall. COMPARISON: Correlated to CT abdomen and pelvis dated January 23, 2025. TECHNIQUE: AP pelvis. AP and oblique views of the left hip. FINDINGS: No acute cortical disruption or malalignment, left coxofemoral joint. Mild degenerative changes. Degenerative changes in the stents as well as and sacroiliac joints. Facet joint hypertrophy at L5-S1. Bony pelvis is grossly intact. IMPRESSION: No acute fracture or dislocation, left hip. Electronically signed by: Anshu Burns MD 03/22/2025 02:14 PM [facility]
--- NOTE | ~2025-03-22 | XR_ITS ---
EXAMINATION: XR CHEST CLINICAL INFORMATION: hypoxia COMPARISON: December 28, 2024 TECHNIQUE: AP and lateral views. FINDINGS: Prominence of the interstitial markings. Pulmonary reticular pattern. Elevated left hemidiaphragm, unchanged. Cardiomediastinal silhouette size is large, unchanged. No gross pneumothorax. Multilevel spondylosis, axial skeleton. XR/XR hip LT w PEL1V IMPRESSION: Chronic interstitial lung disease. Concerning mild interstitial lung edema. Probable left-sided small to moderate volume pleural effusion. Cardiomegaly. 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 EXAMINATION: XR HIP, LEFT CLINICAL INFORMATION: Status post fall. COMPARISON: Correlated to CT abdomen and pelvis dated January 23, 2025. TECHNIQUE: AP pelvis. AP and oblique views of the left hip. FINDINGS: No acute cortical disruption or malalignment, left coxofemoral joint. Mild degenerative changes. Degenerative changes in the stents as well as and sacroiliac joints. Facet joint hypertrophy at L5-S1. Bony pelvis is grossly intact. IMPRESSION: No acute fracture or dislocation, left hip. Electronically signed by: Anshu Burns MD 03/22/2025 02:14 PM [facility]
[2025-03-22 12:34] VITALS: BP 106/78; PULSE 106; PULSE 110; RESP 18; TEMP 36.4; O2SAT 86; O2SAT 89; BMI 30.6
--- NOTE | 2025-03-22 12:37 | ED.FALL ---
HPI - Fall General Chief Complaint: Extremity Problem Stated Complaint: SWOLLEN L LEG Time Seen by Provider: 03/22/25 12:23 Source: patient and EMS Mode of arrival: EMS Limitations: no limitations History of Present Illness ED Provider: DR. 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 then when he straightened up he fell backward did not hit his head, patient needed help to get off the ground called 911 patient was on the floor for about 3 hours until help by EMS to get him out of bed, patient is complaining of left leg pain and swelling, no head injury, no LOC, Related Data Home Medications ?Medication ?Instructions ?Recorded ?Confirmed atorvastatin 40 mg tablet 40 mg PO BEDTIME 09/03/22 01/25/25 folic acid 1 mg tablet 1 mg PO DAILY@1200 09/04/22 01/25/25 insulin lispro 100 unit/mL See Rx Instructions .Route .COMPLEX 09/04/22 01/25/25 subcutaneous solution (Humalog U-100 Insulin) flash glucose scanning reader #1 ea 01/06/23 01/25/25 (FreeStyle Pat 2 Galva) flash glucose sensor (FreeStyle #1 ea 01/06/23 01/25/25 Pat 2 Sensor kit) ammonium lactate 12 % topical cream 1 appl topical DAILY PRN Wound Care 02/12/23 01/25/25 silver sulfadiazine 1 % topical 1 appl topical DAILY PRN Wound Care 02/12/23 01/25/25 cream sub-q insulin device, 20 unit 02/12/23 01/25/25 (V-GO 20 device) metformin 500 mg tablet,extended 500 mg PO BID 11/03/23 01/25/25 release 24 hr diltiazem HCl 120 mg tablet 120 mg PO DAILY 03/23/24 01/25/25 aspirin 81 mg tablet,delayed 81 mg PO DAILY 05/12/24 01/25/25 release (Adult Aspirin Regimen) Previous Rx's ?Medication ?Instructions ?Recorded furosemide 20 mg tablet 20 mg PO DAILY #30 tabs 02/15/23 tamsulosin 0.4 mg capsule 0.4 mg PO BEDTIME 90 days #90 caps 08/31/24 apixaban 5 mg tablet (Eliquis) 5 mg PO BID 30 days #60 tabs 01/05/25 metoprolol tartrate 50 mg tablet 50 mg PO BID 30 days #60 tabs 01/05/25 finasteride 5 mg tablet 5 mg PO DAILY 90 days #90 tabs 03/09/25 doxycycline hyclate 100 mg tablet 100 mg PO BID #14 tabs 03/22/25 Allergies Allergy/AdvReac Type Severity Reaction Status Date / Time peanut (PEANUTS) Allergy Intermediate Hives Verified 03/22/25 12:38 wool (WOOL) Allergy Unknown UNK Verified 03/22/25 12:38 Review of Systems Review of Systems: all other systems are reviewed and are negative Constitutional: Reports as per HPI and Reports no additional constitutional complaints Eyes: Reports as per HPI and Reports no additional eye complaints Reports system reviewed and no additional complaints, except as documented Cardiovascular: Reports as per HPI and Reports no additional cardiovascular complaints Respiratory: Reports as per HPI and Reports no additional respiratory complaints Gastrointestinal: Reports as per HPI and Reports no additional gastrointestinal complaints Genitourinary: Reports no additional female genitourinary complaints Musculoskeletal: Reports no additional musculoskeletal complaints Skin/Breast: Reports system reviewed and no additional complaints, except as docu Psychiatric: Reports no additional psychiatric complaints Endocrine: Reports no additional endocrine complaints Hematologic/Lymphatic: Reports no additional hematologic/lymphatic complaints Allergic/Immunologic: Reports no additional allergic/immunologic complaints Reports system reviewed and no additional complaints, except as documented and Reports Abnormal speech present [facility] Past Medical History Medical History Atelectasis of both lungs Chronic restrictive lung disease Atrial fibrillation Atrial fibrillation with RVR BPH (benign prostatic hyperplasia) Chronic venous stasis dermatitis GERD (gastroesophageal reflux disease) CAD (coronary artery disease) Type 2 diabetes mellitus (HFpEF) heart failure with preserved ejection fraction Surgical History Hx of colonoscopy Status 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 Family History Family History Father Kidney cancer, primary, with metastasis from kidney to other site Heart disease Social History Social History Household Members: Other Housing: House Are you a primary lead care manager to a significant other at home: No Do you presently have visiting nurse or other home services: Yes Alcohol intake: current Alcohol intake frequency: holidays/special occasions only Patient Tobacco Use Status: Never used Tobacco Second Hand Smoke Exposure: No Advance Directives: Yes Advance Directives on File: Yes Advance Directives Date on File: 02/13/23 service: No Physical Exam Vital Signs: Vital Signs: Last Vital Signs Temp 97.7 F 03/22/25 15:11 Pulse 114 H 03/22/25 15:11 Resp 16 03/22/25 15:11 BP 102/66 03/22/25 15:11 Pulse Ox 94 03/22/25 15:11 O2 Del Method Nasal Cannula 03/22/25 15:11 O2 Flow Rate 2 03/22/25 15:11 BMI result Body Mass Index 30.6 Vital signs have been reviewed and appear to be correct. Blood pressure elevated. Heart rate normal. Respiratory rate normal. Temperature normal. Oxygen saturation normal. Appearance: Alert. Oriented X3. No acute distress. Head: Normal external exam. Normocephalic. Atraumatic. No Jeronimo signs noted. No raccoon eyes noted Eyes: PERRLA. EOMI. Conjunctiva and sclera normal. Eyelids normal. ENT: TM's Normal. Pharynx normal. Uvula midline. Moist mucous membranes. No trismus noted. No drooling noted. No muffled voice noted. Neck: Normal inspection. Neck supple. FROM. No adenopathy. Thyroid Normal. No meningeal signs. No neck mass noted. CVS: Normal heart rate and rhythm. Heart sound normal. No murmurs noted. Pulses normal throughout. Respiratory: No respiratory distress. Painless inspiration. Breath sounds normal. No wheezes/rales/rhonchi noted. Chest nontender. No accessory muscle usage noted or decreased air movement noted. Abdomen: Soft and nontender. Bowel sounds normal in all 4 quadrants. No distention noted. No organomegaly noted. No visible injury noted. Back: No CVA tenderness. Full range of motion noted. Skin: Skin warm and dry. Normal skin color. Normal skin turgor. No rashes/lesions/lacerations noted. Extremities: bilateral lower extremity lymphedema +4 pitting edema, 10 x 7 cm area of redness, hotness over front aspect of left leg. Neuro: Oriented X 3. Cranial nerve exam: II-XII are grossly intact No motor deficit. No sensory deficit. Reflexes normal. Course Reevaluation(s) Reevaluation #1: DVT left lower extremity , ultrasound was reviewed by Dr. Mcbride who think it is a chronic thrombus and he would not recommend any intervention for this small nonocclusive possibly chronic left lower extremity blood clot, recommended to continue with apixaban. Slight elevation of lipase patient has no abdominal pain or nausea vomiting. Head CT is unremarkable for acute intracranial pathology. Left hip x-ray is unremarkable for acute pathology. Will start on doxycycline for 7 days for cellulitis of left leg. Time: 17:37 Medications Administered Discontinued Medications Generic Name Dose Route Start Last Admin Trade Name Freq PRN Reason Stop Dose Admin Doxycycline Hyclate 100 mg/ 250 mls @ 166.67 mls/hr 03/22/25 12:42 03/22/25 15:01 Sodium Chloride IV 03/22/25 14:11 Infused ONCE ONE Infusion Medical Decision Making Differential Diagnosis Differential Diagnoses: The differential diagnosis associated with the presentation includes ( Intracranial bleed, cervical spine injury, extremity injury, chest injury, abdominal injury, lower extremity swelling , lower extremity cellulitis.) Admission/Observation Consideration of admission/observation: Escalation of care including admission/observation considered Lab Data MDM Lab Attestation statement: I reviewed the patient's lab results. 03/22/25 12:49 03/22/25 12:49 Labs: Lab Results 03/22/25 Range/Units 12:49 WBC 7.0 (4.8-10.8) X10*3/uL RBC 4.87 (4.60-5.80) X10*6/uL Hgb 11.9 L (14.0-18.0) g/dl Hct 39.8 L (42.0-52.0) % MCV 81.7 (80.0-98.0) fL MCH 24.4 L (27.0-33.0) pg MCHC 29.9 L (31.0-36.0) g/dl RDW 17.8 H (11.0-16.0) % Plt Count 154 L (160-400) X10*3/uL MPV 9.5 (9.4-12.4) fL Immature Gran % (Auto) 0.4 (0.0-0.4) % Neut % (Auto) 80.5 H (45-73) % Lymph % (Auto) 6.7 L (20-40) % Seward % (Auto) 10.1 (2-11) % Eos % (Auto) 2.0 (0-4) % Baso % (Auto) 0.3 (0-2) % Lymph # (Auto) 0.5 L (1.2-4.9) X10*3/uL Seward # (Auto) 0.7 (0.1-1.2) X10*3/uL Eos # (Auto) 0.1 (0.0-0.4) X10*3/uL Baso # (Auto) 0.0 (0.0-0.2) X10*3/uL Abs Immat Gran (auto) 0.03 (0.00-0.03) X10*3/uL Absolute Neuts (auto) 5.7 (2.0-8.3) x10*3/uL Absolute Nucleated RBC 0.000 (0.0-0.012) X10*3/uL Nucleated RBC % (auto) 0.0 (0.0-0.2) /100WBC Sodium 140 (135-145) mmol/L Potassium 4.0 (3.3-5.1) mmol/L Chloride 105 (96-108) mmol/L Carbon Dioxide 26 (22-29) mmol/L Anion Gap 13 (12-20) BUN 32 H (9-16) mg/dL Creatinine 1.01 (0.5-1.4) mg/dL Estim Creat Clear Calc 91.3 Estimated GFR > 60 Random Glucose 189 H (60-115) mg/dL Lactic Acid 1.4 (0.5-2.0) mmol/L Calcium 9.4 D (8.4-10.2) mg/dL Total Bilirubin 1.6 H (0.0-1.0) mg/dL Direct Bilirubin 0.6 H (0.0-0.5) mg/dL AST 25 (5-37) U/L ALT 11 (0-40) U/L Alkaline Phosphatase 77 (39-117) U/L Total Creatine Kinase 80 (38-174) U/L Troponin I High Sens < 2.7 D (<3.5-35.0) ng/L Total Protein 7.5 (6.5-8.0) g/dL Albumin 3.3 L (3.5-5.0) g/dL Lipase 118 H (8-78) U/L Independent Interpretation I performed an independent interpretation of an: Plain X-Ray ( Left hip and pelvis: No acute fracture, chest x-ray: No acute intrathoracic pathology.) and CT Scan ( Head: No acute intracranial pathology.) Radiology Impression Discussion of test interpretation with radiology: I have reviewed the radiologist's reading. Discharge Plan Discharge Clinical Impression: Accident due to mechanical fall without injury, Chronic deep vein thrombosis (DVT) of calf muscle vein of left lower extremity, Cellulitis of left leg Patient Disposition: Home, Self-Care Instructions: Cellulitis (ED) Prescriptions: New doxycycline hyclate 100 mg tablet 100 mg PO BID Qty: 14 0RF No Action tamsulosin 0.4 mg capsule 0.4 mg PO BEDTIME 90 Days Qty: 90 4RF silver sulfadiazine 1 % cream 1 appl topical DAILY PRN (Reason: Wound Care) ammonium lactate 12 % cream 1 appl topical DAILY PRN (Reason: Wound Care) (DME) V-GO 20 Device MISCELLANEOUS furosemide 20 mg tablet 20 mg PO DAILY Qty: 30 0RF metoprolol tartrate 50 mg Tablet 50 mg PO BID 30 Days Qty: 60 0RF Protocol: Hold for SBP/HR < HOLD for SBP < : 90 HOLD for HR < : 60 Eliquis 5 mg Tablet 5 mg PO BID 30 Days Qty: 60 0RF (DME) FreeStyle Pat 2 Galva Misc See Rx Instructions .ROUTE .MEDSUPPLY Qty: 1 Rx Instructions: As directed (DME) FreeStyle Pat 2 Sensor Kit See Rx Instructions .ROUTE .MEDSUPPLY Qty: 1 Rx Instructions: As directed metformin 500 mg tablet extended release 24 hr 500 mg PO BID diltiazem HCl 120 mg tablet 120 mg PO DAILY aspirin [Adult Aspirin Regimen] 81 mg tablet,delayed release (DR/EC) 81 mg PO DAILY atorvastatin 40 mg tablet 40 mg PO BEDTIME insulin lispro [Humalog U-100 Insulin] 100 unit/mL solution See Rx Instructions .ROUTE .COMPLEX Rx Instructions: Vego 20 insulin pump; pt changes/injects Q36H, unsure how much he injects at this time. folic acid 1 mg tablet 1 mg PO DAILY@1200 finasteride 5 mg tablet 5 mg PO DAILY 90 Days Qty: 90 4RF Print Language: Tunisian
[2025-03-22 12:59] LABS: MANUAL DIFF FLAG NO
[2025-03-22 13:04] LABS: Hematocrit 39.8 % (42.0-52.0); Hemoglobin 11.9 g/dl (14.0-18.0); Imm Gran Abs Auto 0.03 X10*3/uL (0.00-0.03); Imm Gran Pct Auto 0.4 % (0.0-0.4); Lymphocytes Absolute Auto 0.5 X10*3/uL (1.2-4.9); Mean Corpuscular HGB Conc 29.9 g/dl (31.0-36.0); Mean Corpuscular Hemoglobin 24.4 pg (27.0-33.0); Mean Corpuscular Volume 81.7 fL (80.0-98.0); NRBC Abs Auto 0.000 X10*3/uL (0.0-0.012); NRBC Pct Auto 0.0 /100WBC (0.0-0.2); Platelet Count 154 X10*3/uL (160-400); Red Blood Count 4.87 X10*6/uL (4.60-5.80); White Blood Count 7.0 X10*3/uL (4.8-10.8)
[2025-03-22 13:30] LABS: Troponin-I High Sensitivity < 2.7 ng/L (<3.5-35.0)
[2025-03-22 13:37] LABS: Alanine Aminotransferase 11 U/L (0-40); Albumin Level 3.3 g/dL (3.5-5.0); Alkaline Phosphatase 77 U/L (39-117); Anion Gap 13 (12-20); Aspartate Amino Transferase 25 U/L (5-37); Blood Urea Nitrogen 32 mg/dL (9-16); Calcium 9.4 mg/dL (8.4-10.2); Carbon Dioxide 26 mmol/L (22-29); Chloride 105 mmol/L (96-108); Creatinine Clr Calc Pharmacy 91.3; Estimated Glomerular Filt Rate > 60; Lipase 118 U/L (8-78); Potassium 4.0 mmol/L (3.3-5.1); Sodium 140 mmol/L (135-145); Total Protein 7.5 g/dL (6.5-8.0)
[2025-03-22 15:11] VITALS: BP 102/66; PULSE 114; RESP 16; TEMP 36.5; O2SAT 94
--- OUTSIDE RECORDS SUMMARY | 2025-03-22 15:42 | XMS_ITS | Encounter Summary ---
Author Organization [facility] Address [address] [place] [address] Care Team Providers Care Gaming Worker Name Role Phone Katie Gaytan MD Primary Care Provider [phone] Encounter Details Date Type Department Care Team (Latest Contact Info) Description 03/02/2024 Anticoagulation - Warfarin Visit [facility] [address] [address] Shonna White LPN Personal history of DVT [...] Care Team (Late st Contact Info) Description 04/05/2025 12:40 PM EST Office Visit [facility] - [facility] [address] [address] Radha Hudson, TAMAR [address] [place] [address] [place] [address] 05/09/2025 1:30 PM EST Office Visit Endocrinology - [place] [address] [place] [address] Julia Oconnell PA [address] [place] [address] documented as of this encounter Visit Diagnoses Diagnosis Personal history of DVT (deep vein thrombosis)- Primary Personal history of venous thrombosis and embolism documented in this encounter Care Teams Gaming Worker Relationship Specialty Start Date End Date Katie Gaytan MD [address] [place] [address] PCP - General 02/18/1999 documented as of this encounter
--- OUTSIDE RECORDS SUMMARY | 2025-03-22 15:42 | XMS_ITS | Encounter Summary ---
Author Organization [facility] Address [address] [place] [address] Care Team Providers Care Juice Weigher Name Role Phone Katie Gaytan MD Primary Care Provider [phone] Reason for Visit * Reason Onset Date Comments Medication 03/14/2025 Encounter Details Date Type Department Care Team ([facility] st Contact Info) Description 03/14/2025 Telephone [facility] - [facility] [address] [facility] [address] [place] [address] Yovany Giles MD [address] [place] [address] [place] [address] Social History Tobacco Use Types Packs/Day Years [...] for your loved ones. For example, child nurse or elderly care for an [...] PM EST documented as of this encounter Ordered Prescriptions Prescription Sig Dispense Quantity Refills Last Filled Start Date End Date dilTIAZem CD (CARDIZEM CD) 120 mg 24 hr capsule Take 1 capsule (120 mg total) by mouth 1 (one) time each day. 30 each 03/16/2025 documented in this encounter Progress Notes * Flaquita Finn - 03/21/2025 8:12 AM EST Please request records from [facility], thank you. * Alexis Rene RN - 03/16/2025 4:38 PM ESTAddended by: ALEXIS RENE on: 03/16/2025 04:38 PM Modules accepted: Orders * Alexis Rene RN - 03/16/2025 4:25 PM EST Spoke with LC who stated Dilt ER 120 mg 24 hr daily. Ordered #30 0 refills. Booked s/p hosp appt 04/05 12:40pm LC. Patient was made aware I called [facility] pharmacy and advised he needs med delivered. I was advisedFriday would be soonest. Patient was made aware. * Alexis Rene RN - 03/16/2025 4:14 PM EST I confirmed with [facility] he was taking Diltiazem 120 mg 1 tab daily immediate release. Is this what you want filled? * ERASMO Timmons - 03/16/2025 3:52 PM EST If it is prescribed once daily then we have to assume it is ER * Alexis Rene RN - 03/16/2025 3:42 PM ESTAddended by: ALEXIS RENE on: 03/16/2025 03:42 PM Modules accepted: Orders * Alexis Rene RN - 03/16/2025 3:39 PM EST Listed in d /c summary is Diltiazem HCL 120 mg daily not the ER. Which one would you like me to fill? * ERASMO Timmons - 03/16/2025 3:23 PM EST Yes- whatever is listed in d/c summary * Alexis Rene RN - 03/16/2025 3:16 PM EST Diltiazem 120 mg 24 hr capsule daily? * ERASMO Timmons - 03/16/2025 2:55 PM EST 30 day supply no refill * Alexis Rene RN - 03/16/2025 1:44 PM EST Please see below message from Adult medicine and please see string from earlier today. Patient req we fill Diltiazem . If ok to fill please specify dose . * Alexis Rene RN - 03/16/2025 1:43 PM EST Message below received from adult medicine. Patient call requires triage: Symptoms patient is presenting: Patient uncertain as to what he should do. States he was prescribedDiltiazem by organizational effectiveness consultant Dr Mcknight. He had some issues with edema and needed some wound care visit back in November/December. States while going through this Dr Mcknight took him off Diltiazem. Patient ended up in the hospital soon after and while in the hospital he was put back on Diltiazem. He was thentransferred to a rehab center in which the Dr's there continued to keep him on Diltiazem. He was discharged home with instructions to keep taking Diltiazem. Patient had a bottle at home which he continued to use. He has only 2 tabs left and called to cardiology to have refilled and was told they haven't seen him in 6 months and won't fill it to call his PCP - looks like PCP is not here today and back on Friday - patient is very concerned about his blood pressure and running out of medication stating he doesn't want to wind up in the hospital again * ERASMO Timmons - 03/16/2025 11:24 AM EST Noted * Brandi Flores RN - 03/16/2025 11:10 AM EST Pt is waiting for a pulmonary consult PCP has placed the referral Pt didn't call for HFU but would like an appt ACCESS: please schedule pt for HFU [facility] 8..25 - 9..25 DX: Hypoxia, med changes Pt confirmed taking Metoprolol Tartrate 50 mg 1 tab twice daily BP 120/70 today HR 92 pt is outside walking with PT. Pt states BP has been consistently 120/70 for the past week Pt is going to call PCP for refill Diltiazem * ERASMO Timmons - 03/16/2025 10:39 AM EST Why hasn't patient been scheduled for f/u with his PCP and doesn't have HFU scheduled with us. It'sdifficult to manage medication changes made in the hospital without assessing patient. When he was last seen here with Radha in October his afib was rate controlled and she switched him to metoprolol tartrate- is he still taking that? Afib in the hospital was felt to be 2/2 pneumonia and resp insufficiency. Do we have recent pulse readings and Bps available to review? * Zeferino Acharya - 03/16/2025 9:27 AM EST Patient state she is still waiting on a response. Please call. * Brandi Flores RN - 03/15/2025 8:25 AM EST Spoke with pt he was admitted to [facility] 8 - 01.05.25 DX: Hypoxia Diltiazem was dc'd at [facility] 7.. Medications were changed Warfarin dc'd, Eliquis started Med module has been reviewed with pt and is up to date Pt was put back on Diltiazem HCL 120 mg 1 tab daily at [facility], pt is asking if he should continue with it and can we refill it ? * Debra Parish - 03/14/2025 4:02 PM EST Patient called and stated that his Diltiazem was discontinued, and he said he is down to his last tablet. Patient would like to know if a different medication will be replacing the Diltiazem. He would like a call back with more information. documented in this encounter Plan of Treatment Upcoming Encounters Date Type Department Care Team (Late st Contact Info) Description 04/05/2025 12:40 PM EST Office Visit [facility] [address] [facility] [address] [place] [phone] Radha Hudson NP [address] [place] [address] [place] [address] 05/09/2025 1:30 PM EST Office Visit Endocrinology - [place] [address] [place] [address] Julia Oconnell PA [address] [place] [address] documented as of this encounter Visit Diagnoses Not on filedocumented in this encounter Discontinued Medications Medication Sig Discontinue Reason Start Date End Da te metoprolol tartrate (LOPRESSOR) 100 mg tablet Take 1.5 tablets (150 mg total) by mouth 2 (two) times a day. Dose adjustment 10/20/2024 03/15/2025 lancets lancets by Other route. Duplicate order 03/15/2025 amoxicillin-clavulana te (AUGMENTIN) 500-125 mg per tablet Take 1 tablet by mouth 1 (one) time each day. Therapy completed 03/15/2025 finasteride (PROSCAR) 5 mg tablet Urologist prescribed meds Discontinued by another clinician 01/05/2025 warfarin (COUMADIN) 5 mg tablet TAKE 1 TO 2 TABLETS BY MOUTH ONCE DAILY. MAY CAUSE HEAVY BLEEDING AND TAKE AT THE SAME TIME EVERY DAY. DO NOT CHANGE DIETARY HABITS Alternate therapy 08/31/2024 01/05/2025 hydrocortisone 1 % lotionIndications:Hayden ous stasis ulcer of left calf with varicose veins, unspecified ulcer stage (CMS/HCC V24, CMS/HCC V28),Venous stasis ulcer of right calf limited to breakdown of skin with varicose veins (CMS/HCC V24, CMS/HCC V28),Personal history of DVT (deep vein thrombosis),Post-thro mbotic syndrome Apply topically 2 (two) times a day. Apply to lower leg itchy areas bilaterally. Do not apply to open wounds. Discontinued by another clinician 08/23/2024 03/15/2025 documented as of this encounter Historical Medications * This list may reflect changes made after this encounter. metoprolol tartrate (LOPRESSOR) 50 mg tablet Take 1 tablet (50 mg total) by mouth 2 (two) times a day. HOLD for SBP < 90 and HOLD for HR < 60 01/05/2025 apixaban (ELIQUIS) 5 mg tablet Take 1 tablet (5 mg total) by mouth 2 (two) times a day. Started at [facility] 01/05/2025 added in this encounter Additional Health Concerns Assessment Noted Time PHQ-9 Depression Total Score: 0 03/22/20 24 10:44 AM EST A fall risk assessment has been complete d for the patient 03/20/2024 12:04 PM EST documented as of this encounter Care Teams Juice Weigher Relationship Specialty Start Date End Date Katie Gaytan MD [address] [place] [address] PCP - General 02/18/1999 documented as of this encounter
--- OUTSIDE RECORDS SUMMARY | 2025-03-22 15:42 | XMS_ITS | Clinical Summary ---
Author Organization [facility] Address [address] [facility] [address] [place] [address] Phone Care Team Providers Care Sheet Tester Name Role Phone Katie Gaytan MD Primary Care Provider [phone] Social History Tobacco Use Types Packs/Day Years [...] A & B [facility] MEDICARE REPLACEMENT [place] [id number] MEDICARE PART A & B Member Subscriber Plan / Payer (Ef fective 2017-Present) Name:Randy Tan Member ID:[id number] Relation to Subscriber:Self Name:Randy Tan Subscriber ID:[id number] Payer ID:[id number] Group ID:Not on file Type:Medicare Address: [employer] [id number] MEDICARE REPLACEMENT MEDICARE PART A & B MEDICARE REPLACEMENT MEDICARE PART A & B MEDICARE REPLACEMENT MEDICARE PART A & B [facility] MEDICARE REPLACEMENT MEDICARE PART A & B Care Teams Sheet Tester Relationship Specialty Start Date End Date Katie Gaytan MD [address] [place] [address] PCP - General Internal Medicine 04/17/23 Additional Source Comments The information contained in this document represents components of the legal health record. It is not the complete legal health record.[facility]
--- OUTSIDE RECORDS SUMMARY | 2025-03-22 15:42 | XMS_ITS | Encounter Summary ---
Author Organization [facility] Address [address] [place] [address] Care Team Providers Care Warehouse Receiving Supervisor Name Role Phone Katie Gaytan MD Primary Care Provider [phone] Reason for Visit * Reason Onset Date Comments Advice Only 03/16/2025 Encounter Details Date Type Department Care Team ([facility] st Contact Info) Description 03/16/2025 Telephone Adult Medicine [facility] [place] [address] [place] [address] Katie Gaytan MD [address] [place] [address] Social History Tobacco Use Types Packs/Day Years [...] for your loved ones. For example, child study team director or elderly care for an older [...] as of this encounter Progress Notes * Ivory Bacon RN - 03/16/2025 1:47 PM EST Please see cardiology encounter with this message attached to message from earlier today and forwarded to provider. * Tracy Toledo - 03/16/2025 11:47 AM EST Patient call requires triage: Symptoms patient is presenting: Patient uncertain as to what he should do. States he was prescribedDiltiazem by slat basket maker Dr Mcknight. He had some issues with [...] to wind up in the hospital again How long has patient had these symptoms?: n/a For ALL patients calling to schedule any appointment (routine, sick visit, follow up, consult, etc.) in the outpatient setting please ask the following questions: Do you have fever of higher than 101, sore throat with difficulty swallowing or severe shortness ofbreath? no If YES to any of these above symptoms, send a message to triage and do not book. Red dot. If no, an audio or video visit should be booked. Have you had close contact with someone with Coronavirus in the last 14 days? no Have you traveled abroad? no Have you traveled recently to another state outside of [place], [place], [place], [place], [place], [place], [place]? no o If yes, did you quarantine for 14 days or have a negative covid test? no If yes to any of the above, patient is not to be scheduled in office until after 14 day quarantine or negative covid test. If pain or injury related was it due to an accident at work or from a motor vehicle accident? If yes, date of accident/Injury: No If yes, gather 3rd alliance party insurance information Third Constitution Party Information: not applicable PCP: Katie Gaytan MD Payor: UNITED HEALTHCARE MEDICARE / Plan: AARP MEDICARE COMPLETE / Product Type: *No Product type* / documented in this encounter Plan of Treatment Upcoming Encounters Date Type Department Care Team (Late st Contact Info) Description 04/05/2025 12:40 PM EST Office Visit [facility] [address] [place] [address] Radha Hudson, TAMAR [address] [place] [address] Dr Kinney [address] [place] [address] 05/09/2025 1:30 PM EST Office Visit Endocrinology - [place] [address] [place] [address] Julia Oconnell PA [address] [place] [address] documented as of this encounter Visit Diagnoses Not on filedocumented in this encounter Additional Health Concerns Assessment Noted Time PHQ-9 Depression Total Score: 0 03/22/20 24 10:44 AM EST A fall risk assessment has been complete d for the patient 03/20/2024 12:04 PM EST documented as of this encounter Care Teams Warehouse Receiving Supervisor Relationship Specialty Start Date End Date Katie Gaytan MD [address] [place] [id number] PCP - General 02/18/1999 documented as of this encounter
--- OUTSIDE RECORDS SUMMARY | 2025-03-22 15:43 | XMS_ITS | Clinical Summary ---
Author Organization [address] [place] [address] [place] [phone] Phone Care Team Providers Care Audit Clerks Supervisor Name Role Phone Katie Gaytan MD Primary Care Provider [phone] Allergies Active Allergy Reactions Criticality Noted Date Comments Lanolin Rash 04/17/2007 Allergic to wool causes rash Other 02/03/2023 Other reaction(s): Hives Peanut Hives 04/16/2006 Wool 04/02/2023 Medications ammonium lactate (AMLACTIN) 12 % cream Apply topically 2 times daily as needed. Active insulin pump cart,10 units/day cartridge CHANGE POD DAILY, USE 4-6 CLICKS PER MEAL 024 Active tamsulosin (FLOMAX) 0.4 mg 24 hr capsule Urologist prescribed meds Active aspirin 81 mg EC tablet Take 1 tablet (81 mg total) by mouth 1 (one) time each day. 025 2025 Active digoxin (LANOXIN) 125 mcg (0.125 mg) tablet Take 1 tablet (125 mcg total) by mouth 1 (one) time each day. 90 tablet 2 025 Active Additional Information Patient not taking.Reported on 02/15/2025 blood-glucose meter,continuous ([employer]Style Pat 3 [place]) miscIndications: DM (diabetes mellitus), type 2 with neurological complications (CMS/HCC V24, CMS/HCC V28) CGM, use with pat sensor 1 each 025 Active insulin lispro 100 unit/mL injection USE IN V-GO 20 SUBCUTANEOUS INSULIN DELIVERY SYSTEM FOR MAX 55 UNITS/DAY. 20 mL 11 025 Active folic acid (FOLVITE) 1 mg tablet TAKE ONE TABLET BY MOUTH ONCE DAILY 90 tablet 1 025 Active blood-glucose sensor (FreeStyle Pat 3 Plus Sensor) deviceIndication s:Type 2 diabetes mellitus with chronic kidney disease, with long-term current use of insulin, unspecified CKD stage ([facility] V24, [facility] V28) Change sensor every 15 days 6 each 025 Active sub-q insulin device, 20 unit (V-GO 20) device CHANGE POD DAILY. USE 2-3 CLICKS BEFORE EACH MEAL. USE ONE ADDITIONAL CLICK FOR CARB HEAVY MEALS. 30 kit 5 025 Active blood-glucose meter kitIndications:D M (diabetes mellitus), type 2 with neurological complications ([facility] V24, [facility] V28) Use to check bs daily 1 each 025 Active blood sugar diagnostic (Contour Next Test Strips) test stripIndications :DM (diabetes mellitus), type 2 with neurological complications ([facility] V24, [facility] V28) Use to check bs 3 times a day 100 each 12 025 2025 Active lancets (Microlet Lancet) lancetsIndicatio ns:DM (diabetes mellitus), type 2 with neurological complications ([facility] V24, [facility] V28) Use to check bs 3 times daily 100 each 12 025 2025 Active furosemide (LASIX) 20 mg tablet TAKE ONE TABLET BY MOUTH ONCE DAILY 90 tablet 025 Active atorvastatin (LIPITOR) 40 mg tablet TAKE ONE TABLET BY MOUTH ONCE DAILY 90 tablet 1 025 Active dulaglutide (Trulicity) 0.75 mg/0.5 mL pen injector injectionIndicat ions:DM (diabetes mellitus), type 2 with neurological complications ([facility] V24, [facility] V28) Use 0.75mg once weekly 2 mL 2 025 Active metFORMIN XR (GLUCOPHAGE-XR) 500 mg 24 hr tablet TAKE ONE TABLET BY MOUTH TWO TIMES A DAY WITH FOOD 60 tablet 2 025 Active apixaban (ELIQUIS) 5 mg tablet Take 1 tablet (5 mg total) by mouth 2 (two) times a day. Started at [facility] Active metoprolol tartrate (LOPRESSOR) 50 mg tablet Take 1 tablet (50 mg total) by mouth 2 (two) times a day. HOLD for SBP < 90 and HOLD for HR < 60 Active dilTIAZem CD (CARDIZEM CD) 120 mg 24 hr capsule Take 1 capsule (120 mg total) by mouth 1 (one) time each day. 30 each 2025 Active lancets lancets by Other route. 02/20 Discontinued(D uplicate order) metFORMIN XR (GLUCOPHAGE-XR) 500 mg 24 hr tablet TAKE ONE TABLET BY MOUTH TWO TIMES A DAY WITH FOOD 60 tablet 2 2024 Discontinued hydrocortisone 1 % lotionIndication s:Venous stasis ulcer of left calf with varicose veins, unspecified ulcer stage ([facility] V24, [facility] V28),Venous stasis ulcer of right calf limited to breakdown of skin with varicose veins ([facility] V24, [facility] V28),Personal history of DVT (deep vein thrombosis),Post -thrombotic syndrome Apply topically 2 (two) times a day. Apply to lower leg itchy areas bilaterally. Do not apply to open wounds. 118 mL 2 2024 Discontinued(D iscontinued by another clinician) metoprolol tartrate (LOPRESSOR) 100 mg tablet Take 1.5 tablets (150 mg total) by mouth 2 (two) times a day. 180 each 3 2024 Discontinued(D ose adjustment) amoxicillin-clav ulanate (AUGMENTIN) 500-125 mg per tablet Take 1 tablet by mouth 1 (one) time each day. 2024 Discontinued(T herapy completed) Active Problems Problem Noted Date Diagnosed Date Personal history of DVT (deep vein thrombosis) 1 04/27/2023 Hypotension 05/16/2023 Sepsis ([facility] V24, [facility] V28) 05/16/2023 Urinary tract infection with hematuria Overview (02/02/2024): Urosepsis, please see note 04/30/23, obstructive uropathy likely from BPH, requiring prolonged Julio cath/bag. Following with urology Dr. Michael Rutledge CHF (congestive heart failure) ([facility] V24, [facility] V28) 02/25/2023 Overview (04/22/2024): Echo 01/2023 LVEF [...] a referral to the wound clinic at [facility] as this is his preference I [...] IV diuretics and IV antibiotics Atrial fibrillation ([facility] V24, [facility] V28) 0 09/05/2017 Assessment & Plan (10/20/2024 [...] 2 with neurological complications ([facility] V24, [facility] V28) 09/01/2017 Assessment & Plan (03/24/2024 1:07 PM EST): 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 Embolism and thrombosis of a rteries of lower extremity ([facility] V24, [facility] V28) 03/18/2017 Umbilical hernia without obstruction and without gangrene 03/02/2015 Assessment & Plan (03/24/2024 1:07 PM EST): Other specified anemias 02/15/2015 DM ketoacidosis type II, unc ontrolled ([facility] V24, [facility] V28) 09/21/2014 Microalbuminuria 09/21/2014 Nuclear sclerosis 09/21/2014 [...] type 2 diabetes mellitus ([facility] V24, [facility] V28) 05/29/2005 Overview (02/02/2024): Last Assessment & [...] continue to follow with your specilaist at [facility], and get me the record. 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, followed by hematology IMO update Esophageal reflux 05/29/2005 Overview (02/02/2024): The patient underwent upper GI endoscopy 08.30.05 at [facility] for the evaluation of reflux [...] Plan (03/24/2024 1:07 PM EST): Morbid obesity ([facility] V24, [facility] V28) 2005 Pure hypercholesterolemia 05/29/2005 Assessment & [...] Encounters Date Type Department Care Team Description 03/16/2025 Telephone Adult Medicine [address] [phone] Katie Gaytan MD 03/14/2025 Telephone [facility] [address] [facility] [address] [place] [phone] Yovany Giles MD 03/07/2025 Telephone Adult Medicine [address] [phone] Karen Edmondson MA 03/03/2025 Telephone Adult Medicine [address] [phone] Katie Gaytan MD 02/23/2025 Telephone Adult [address] [phone] Sabi Dumont MA 02/15/2025 2:00 PM EDT Office Visit [address] [phone] Julia Oconnell PA DM (diabetes mellitus), type 2 with neurological complications ([facility]/HCC V24, CMS/HCC V28) (Primary Dx); Essential hypertension, benign; Pure hypercholesterolemia ; Microalbuminuria 02/10/2025 10:30 AM EDT Office Visit Adult [address] [phone] Katie Gaytan MD Morbid obesity (CMS/HCC V24, CMS/HCC V28) (Primary Dx); DM (diabetes mellitus), type 2 with neurological complications (CMS/HCC V24, CMS/HCC V28); DM ketoacidosis type II, uncontrolled (CMS/HCC V24, CMS/HCC V28); Chronic diastolic congestive heart failure (CMS/HCC V24, CMS/HCC V28); Atrial fibrillation, unspecified type (CMS/HCC V24, CMS/HCC V28); Coronary artery disease involving [place] coronary artery of [place] heart without angina pectoris; Venous (peripheral) insufficiency; Interstitial lung disease (CMS/HCC V24, CMS/HCC V28) 02/10/2025 Anticoagulation - Warfarin Visit [facility] [address] [phone] Katie Gaytan MD Personal history of DVT (deep vein thrombosis) (Primary Dx) 02/10/2025 Telephone Endocrinology [address] [phone] Julia Oconnell PA 02/08/2025 Telephone Endocrinology [address] [place] [address] Julia Oconnell PA 02/04/2025 Telephone Adult Medicine [address] [phone] Katie Gaytan MD 01/21/2025 Telephone [facility] [address] [facility] [address] [place] [phone] Sarah Lee, TAMAR 12/27/2024 Telephone Adult Medicine [address] [phone] Katie Gaytan MD 12/22/2024 Telephone [facility] [address] [phone] Sarah Lee, GRAVURE PRESS OPERATOR from Last 3 Months Immunizations Immunization Administration Dates Next Due H1N1 Inj Preservative Free 03/09/2009 Influenza trivalent, 0.5mL ( Fluad) 65yo and older 12/25/2021,01/02/2021,01/19/2019 Influenza trivalent, 0.5mL, preservative free (Fluarix; FluLaval; Fluzone) ages 6mo and older (Afluria) 3 years and older 01/16/2011,02/20/2010,01/14/2008,01/19,03/14/2006,01/31/2005 Influenza, Unspecified 01/02/2021,2017,02/05/2017,02/02,02/02/2015,01/24/2014,02/04/2012 Pfizer Covid-19 Bivalent, Or iginal + Ba.1 (Non-US Trademark COMIRNATY Bivalent) 12/25/2021 Pfizer SARS-CoV-2 COVID-19, mRNA, LNP-S, [...] 2 with neurological complications ([facility] V24, [facility] V28) 09/01/2017 DX:DM (diabetes mellitus), t ype 2 with neurological complications ([facility]) Family History Medical History Relation Name Comments [...] your loved ones. For example, early childhood lead teacher or elderly care for an older [...] Sign Reading Time Taken Comments Blood Pressure 92/53 02/15/2025 1:53 PM EDT Pulse 87 02/15/2025 1:53 PM EDT Temperature 36.2 C (97.1 F) 02/10/2025 10:37 AM EDT Respiratory Rate 17 02/15/2025 1:53 PM EDT Oxygen Saturation 99% 10/20/2024 10:06 AM EDT Inhaled Oxygen Concentration - - Weight 115 kg (253 lb) 02/15/2025 1:53 PM EDT Height 193 cm (6' 4 ) 02/15/2025 1:53 PM EDT Body Mass Index 30.8 02/15/2025 1:53 PM EDT Plan of Treatment Upcoming Encounters Date Type Department Care Team (Late st Contact Info) Description 04/05/2025 12:40 PM EST Office Visit [facility] [address] [facility] [address] [place] [address] Radha Hudson NP [address] [place] [address] [place] [address] 05/09/2025 1:30 PM EST Office Visit Endocrinology - [place] [address] [place] [address] Julia Oconnell PA [address] [place] [address] Health Maintenance Due Date Last Done Comments Depression Screening 04/21/2024 03/22/2024 Diabetes: Annual Foot Exam 11/27/2024 11/28/2023 COVID-19 Vaccine ( season) 2024 01/27/2024, 01/10/2023, 08/08/2021, Additional history [...] XRAY REPORT 12/27/2024 EXTERNAL XRAY REPORT 12/21/2024 BASIC METABOLIC PANEL Routine 12/02/2024 9:29 AM EDT Chronic venous stasis Chronic diastolic congestive heart failure ([facility] V24, [facility] V28) HEMOGLOBIN A1C Routine 12/02/2024 7:55 AM EDT DM (diabetes mellitus), type 2 with neurological complications ([facility] V24, [facility] V28) MICROALBUMIN CREATININE URINE RATIO Routine 08/25/2024 1:50 PM EDT Atrial fibrillation, unspecified type ([facility] V24, [facility] V28) Chronic diastolic congestive heart failure ([facility] V24, [facility] V28) Encounter for lipid screening for cardiovascular [...] Xray Report (12/28/2024) Only the most recent of5 resultswithin the time period is included. Anatomical Region Laterality Modality Radiographic Tala ging us Provider [facility] IMG XR PROCEDURES Final Result * (ABNORMAL) Basic metabolic panel (12/02/2024 9:29 AM EDT) Sodium 139 133 - 145 mmol/L LAB CHEMISTRY METHOD 12/02/2024 12:42 PM [facility] Potassium 4.2 3.5 - 5.5 mmol/L LAB CHEMISTRY METHOD 12/02/2024 12:42 PM [facility] Chloride 103 96 - 110 mmol/L LAB CHEMISTRY METHOD 12/02/2024 12:42 PM [facility] CO2 32 21 - 32 mmol/L LAB CHEMISTRY METHOD 12/02/2024 12:42 PM [facility] Anion Gap 4 3 - 11 LAB CHEMISTRY METHOD 12/02/2024 12:42 PM [facility] Glucose 216(H) 70 - 100 mg/dL LAB CHEMISTRY METHOD 12/02/2024 12:42 PM [facility] BUN 17 5 - 25 mg/dL LAB CHEMISTRY METHOD 12/02/2024 12:42 PM [facility] Creatinine 0.98 0.70 - 1.30 mg/dL LAB CHEMISTRY METHOD 12/02/2024 12:42 PM [facility] eGFR 82 >=60 mL/min/1. 73m2 LAB CHEMISTRY METHOD 12/02/2024 12:42 PM [facility] Comment:Calculation based on the Chronic Kidney Disease Epidemiology Collaboration (CKD-EPI) equation refit without adjustment for race. BUN/Creatinine Ratio 17.3 LAB CHEMISTRY METHOD 12/02/2024 12:42 PM [facility] Calcium 8.6 8.5 - 10.5 mg/dL LAB CHEMISTRY METHOD 12/02/2024 12:42 PM [facility] Blood Venous blood specimen / Unknown Venipuncture / Unknown 12/02/2024 9:29 AM EDT 12/02/2024 9:29 AM EDT us Sarah Lee NP LAB BLOOD ORDERABLES Final Resu lt [facility] [address] [place] [address], [place] [phone] * (ABNORMAL) Hemoglobin A1c (12/02/2024 7:55 AM EDT) Hemoglobin A1C 6.8(H) <6.5 % LAB CHEMISTRY METHOD 12/02/2024 11:37 AM EDT [facility] Mean Bld Glu Estim. 148 mg/dL LAB CHEMISTRY METHOD 12/02/2024 11:37 AM EDT [facility] Blood Venous blood specimen / Unknown Venipuncture / Unknown 12/02/2024 7:55 AM EDT 12/02/2024 7:55 AM EDT us Julia ZIMMERMAN LAB BLOOD ORDERABLES Final Resul t [facility] [address] [place] [address], * (ABNORMAL) Lipid panel with reflex to direct LDL (08/25/2024 1:50 PM EDT) Pathologist [facility] Cholesterol 99 0 - 200 mg/dL LAB CHEMISTRY METHOD 08/25/2024 6:50 PM EDT [facility] Triglycerides 134 0 - 150 mg/dL LAB CHEMISTRY METHOD 08/25/2024 6:50 PM EDT [facility] HDL 39(L) >=40 mg/dL LAB CHEMISTRY METHOD 08/25/2024 6:50 PM EDT [facility] LDL Calculated 33 0 - 100 mg/dL LAB CHEMISTRY METHOD 08/25/2024 6:50 PM EDT [facility] VLDL Cholesterol Aramis 26.8 mg/dL LAB CHEMISTRY METHOD 08/25/2024 6:50 PM EDT [facility] Non HDL Chol. (LDL+VLDL) 60 <145 mg/dL LAB CHEMISTRY METHOD 08/25/2024 6:50 PM EDT [facility] Chol/HDL Ratio 2.5 0.0 - 4.4 LAB CHEMISTRY METHOD 08/25/2024 6:50 PM EDT [facility] Blood Venous blood specimen / Unknown Venipuncture / Unknown 08/25/2024 1:50 PM EDT 08/25/2024 1:50 PM EDT Jose Armando Oakley GRAVURE PRESS OPERATOR LAB BLOOD ORDERABLES Final R esult [facility] [address] [place] [address], [place] [phone] * (ABNORMAL) Microalbumin creatinine urine ratio (08/25/2024 1:50 PM EDT) [facility] Creatinine, Urine 103.0 mg/dL LAB CHEMISTRY METHOD 08/25/2024 6:51 PM EDT [facility] Microalb, Ur 121.0(H) 0.0 - 29.0 mg/L LAB CHEMISTRY METHOD 08/25/2024 6:51 PM EDT [facility] Microalb/Crea t Ratio 117(H) <30 mg/g creat LAB CHEMISTRY METHOD 08/25/2024 6:51 PM EDT [facility] Urine Urine specimen obtained by clean catch procedure / Unknown Non-blood Collection / Unknown 08/25/2024 1:50 PM EDT 08/25/2024 1:50 PM EDT Jose Armando Oakley GRAVURE PRESS OPERATOR LAB URINE ORDERABLES Final R esult [facility] [address] [place] [address], [place] [phone] * Diabetes Foot Exam (11/28/2023) [facility] Diabetes: Annual Foot Exam Abstracted us Historical Provider HEALTH MAINTENANCE Final Result * Colonoscopy (06/10/2018) [facility] Colonoscopy No interpreta tion,abstr acted Anatomical Region Laterality Modality Other us Historical Provider HEALTH MAINTENANCE Final Result * Hepatitis C Screening (03/13/2013) Pathologist [facility] Hepatitis C Screening Abstracted us Historical Provider HEALTH MAINTENANCE Final Result from Last 3 Months or Most Recently Relevant to Health Maintenance Insurance [employer] MEDICARE Care Teams Audit Clerks Supervisor Relationship Specialty Start Date End Date Katie Gaytan MD [address] [place] [address] PCP - General 02/18/1999
--- NOTE | 2025-03-22 19:15 | PC.NURSE ---
Assumed care of pt, presented to the ED for R/O DVT or cellulitis , pt had left leg swelling, [id number]
[2025-03-22 20:04] LABS: Glucose, Whole Blood 152 mg/dL (60-115)
[2025-03-22 20:06] VITALS: BP 119/71; PULSE 98; RESP 16; TEMP 36.6; O2SAT 90
[2025-03-22 21:03] VITALS: BP 119/71; PULSE 98
[2025-03-22 23:41] VITALS: BP 112/61; PULSE 90; RESP 16; TEMP 36.6; O2SAT 90
--- NOTE | 2025-03-22 23:42 | MHC.EDTECH ---
Pt briefly moved to ED21 to use bedpan. Pt had a bowel movement, cleaned up and repositioned in bed before returning to 19H. Vital signs up to date.
[2025-03-23 01:18] VITALS: BP 112/61; PULSE 90; RESP 16; TEMP 36.6; O2SAT 91
== END 2025-03-23 01:19 | disposition home or self-care (01) ==
PROVIDERS: Emergency Provider Emergency Medicine; PCP Internal Medicine
DX: I82.562 Chronic embolism and thrombosis of left calf muscular vein (principal); L03.116 Cellulitis of left lower limb; M25.552 Pain in left hip; M79.605 Pain in left leg; W18.30XA Fall on same level, unspecified, initial encounter; Y93.9 Activity, unspecified; Y92.009 Unspecified place in unspecified non-institutional (private) residence as the place of occurrence of the external cause; R60.0 Localized edema; R09.02 Hypoxemia; I25.10 Atherosclerotic heart disease of native coronary artery without angina pectoris; I48.91 Unspecified atrial fibrillation; E11.9 Type 2 diabetes mellitus without complications; Z79.4 Long term (current) use of insulin; Z79.01 Long term (current) use of anticoagulants
CPT/HCPCS: 36415; 70450; 71046; 73502; 80048; 80076; 82550; 82947; 83605; 83690; 84484; 85025; 87040; 93971; 96365; 96366; 99284; J1271

== ENCOUNTER → 2025-03-22 12:30 | Outpatient (BNV) | payer MEDICARE, SELFPAY | PROVIDERS: Emergency Provider Emergency Medicine; PCP Internal Medicine; Visit Provider Radiology Diagnostic Radiology | DX: Z79.01 Long term (current) use of anticoagulants (principal); R22.42 Localized swelling, mass and lump, left lower limb; M25.552 Pain in left hip; J84.9 Interstitial pulmonary disease, unspecified; J90 Pleural effusion, not elsewhere classified; I51.7 Cardiomegaly; Z04.3 Encounter for examination and observation following other accident | CPT/HCPCS: 70450; 71046; 73502; 93971 ==